=== PATIENT | male | born 1930 | race Caucasian/White ===

== ENCOUNTER 2017-08-05 18:48 | Observation (INO) ==
[2017-08-05 20:02] LABS: Basophils % 0.7 %; Eosinophils # 0.1 K/mcL (0.0-0.6); Eosinophils % 2.6 %; Hematocrit 45.1 % (37.5-50.1); Immature Granulocytes % 0.2 % (0-4); Lymphocytes # 0.5 K/mcL (0.6-4.6); Lymphocytes % 12.8 %; Mean Corpuscular HGB Conc 33.5 g/dL (31.6-35.5); Mean Corpuscular Hemoglobin 32.3 pg (28.0-33.3); Mean Corpuscular Volume 96.6 fL (83.0-100.0); Mean Platelet Volume 9.5 fL (9.4-12.4); Monocytes # 0.5 K/mcL (0.0-1.3); Monocytes % 10.6 %; Neutrophils # 3.1 K/mcL (1.6-8.9); Platelet Count 112 K/mcL (140-400); Red Blood Count 4.67 M/mcL (4.19-5.50); Red Cell Distribution Width 12.6 % (11.5-14.5); Segmented Neutrophils % 73.1 %
[2017-08-05 20:04] LABS: Hemoglobin 15.1 g/dL (12.9-16.9)
[2017-08-05 20:30] LABS: Calcium 9.1 mg/dL (8.6-10.3); Potassium 4.3 mEq/L (3.5-5.1)
[2017-08-05 20:34] LABS: Troponin I 0.09 ng/mL (< 0.04)
[2017-08-05 20:58] LABS: Bilirubin,Urine Negative (Negative); Blood,Urine Trace (Negative); Clarity,Urine Turbid (Clear); Color,Urine Yellow (Yellow); Glucose,Urine (UA) Normal (Normal); Ketones,Urine Negative (Negative); Leukocyte Esterase,Urine Moderate (Negative); Nitrite,Urine Negative (Negative); PH,Urine 7.5 pH Units (5.0-8.0); Protein,Urine 100 mg/dL (Neg-Trace); Specific Gravity,Urine 1.017 (1.010-1.025); Urobilinogen,Urine Normal (Normal)
[2017-08-05 21:00] LABS: Bacteria,Urine Many per hpf (None-Few); Hyaline Casts,Urine None Seen per lpf (None-Few); RBC,Urine 0-3 per hpf (0-3); Squamous Epithelial Cell,Urine Moderate per lpf (None-Few); WBC,Urine TNTC per hpf (0-3)
[2017-08-05 21:13] LABS: Triple Phosphate Crystal,Urine Present
[2017-08-05] MEDS ORDERED: cefTRIAXone 1,000 MG in Water for inj. (sterile) 20 ML 10 ML IVP ONE (21:48)
--- NOTE | 2017-08-05 21:49 | Emergency Department Note ---
Disposition Clinical Impression: Elevated troponin UTI (urinary tract infection) Qualifiers: Urinary tract infection type: acute cystitis Hematuria presence: without hematuria Qualified Code(s): N30.00 - Acute cystitis without hematuria Disposition: Admitted As Inpatient Condition: Fair Referrals: Radha Jones RECOVERER [Primary Care Provider] - Forms: ED Satisfaction Letter Time of Disposition: 22:13 General Adult HPI - General Chief complaint: ED Allergic Reaction Stated complaint: anxious, agitated,paniacs,? side effect new meds Time Seen by Provider: 08/05/17 18:56 Source: patient Limitations: no limitations Nursing Notes Reviewed: Yes Vital Signs Reviewed: Yes - History of Present Illness HPI Narrative: Patient is an 86-year-old male with a past history of pacemaker, diabetes, obesity, stage III chronic kidney disease, hypertension, CHF, and right lower extremity DVT presenting to the emergency department with the presentation of worsening agitation as well as difficulty sleeping at night. Patient lives at home with his . She states that since the patient was discharged one week ago he is been having difficulty with sleeping and she has noticed that he has been acting not himself. The patient himself denies any complaints of fever, chills, headache, chest pain, shortness of breath, abdominal pain, nausea, vomiting or diarrhea. The patient is in the early stages of Alzheimer's he does require additional assistance and they did have home health set up prior to leaving the hospital. According to the prior note the patient was insisting on going home prior to his renal function and improving his insisting that he follow-up with his primary care physician is placed on additional medications which included Eliquis and lisinopril. Pain Scale: 0 - Related Data Home Medications Medication Instructions Recorded Confirmed Atorvastatin [Lipitor] 40 mg PO DAILY 09/07/15 07/27/17 Insulin Glargine,Hum.rec.anlog 42 unit SQ DAILY 09/07/15 07/27/17 [Lantus Solostar] Insulin LISPRO [HumaLOG] 10 units SQ QPM 09/07/15 07/27/17 Metoprolol [Lopressor] 25 mg PO DAILY 09/07/15 07/27/17 Finasteride [Proscar] 5 mg PO DAILY 04/18/17 07/27/17 Gabapentin [Neurontin] 300 mg PO TID 04/18/17 07/27/17 Glimepiride [Amaryl] 4 mg PO DAILY 04/18/17 07/27/17 Losartan Potassium [Cozaar] 100 mg PO DAILY 04/18/17 07/27/17 Sitagliptin Phosphate [Januvia] 50 mg PO Q48H 04/18/17 07/27/17 Cholecalciferol (D-3) [Vitamin D] 2,000 unit PO DAILY 05/09/17 07/27/17 Furosemide [Lasix] 40 mg PO DAILY 07/27/17 07/27/17 Previous Rx's Medication Instructions Recorded Tamsulosin [Flomax] 0.4 mg PO DAILY capsule 08/06/15 Apixaban [Eliquis] 2.5 mg PO BID #60 tablet 07/30/17 Aspirin Enteric Coated [Aspirin EC] 81 mg PO DAILY #30 tablet. 07/30/17 Lisinopril [Zestril] 5 mg PO DAILY #30 tablet 07/30/17 Allergies Allergy/AdvReac Type Severity Reaction Status Date / Time No Known Allergies Allergy Verified 08/05/17 18:50 All systems ED: reviewed and negative except as stated. Review of Systems: As Per HPI Constitutional: Denies: fever, chills ENT ED: Denies: congestion Cardiovascular: Denies: chest pain, palpitations Respiratory: Denies: cough, dyspnea, wheezes Gastrointestinal: Denies: abdominal pain, nausea, vomiting, diarrhea Genitourinary: Denies: urgency, dysuria Musculoskeletal: Denies: back pain, neck pain Integumentary: Denies: rash Neurological: Denies: headache Past Medical History - Past Medical History Attestation: Yes The following information was validated with the patient. Medical history: Reports: diabetes, hypertension, kidney stones, renal disease, other Surgical history: Reports: herniorrhaphy, pacemaker/AICD Psychiatric history: Reports: anxiety - Social History Smoking Status: Never smoker Smokeless Tobacco Status: No Alcohol use: Reports: rarely Drug use: Reports: none Physical Exam - General Limitations: no limitations General appearance: alert, in no apparent distress - Head Head exam: atraumatic, normocephalic, normal inspection - Eye Eye exam: Present: normal appearance, PERRL - ENT ENT exam: normal exam, normal oropharynx - Neck Neck exam: Present: normal inspection, full ROM - Chest Chest inspection: Present: normal inspection, symmetric chest wall rise. Absent : tenderness - Respiratory Respiratory exam: Present: normal lung sounds bilaterally. Absent: respiratory distress, wheezes - Cardiovascular Cardiovascular exam: Present: regular rate, normal rhythm, normal heart sounds, +S1, +S2 - Abdominal Exam Abdominal exam: Present: soft, Non-Tender, normal bowel sounds - Extremities Exam Extremities exam: Present: full ROM. Absent: tenderness, pedal edema (Patient does have chronic venous stasis changes of bilateral lower extremities.) - Back Exam Back exam: Absent: CVA tenderness (R), CVA tenderness (L) - Neurological Exam Neurological exam: Present: alert, oriented X3 - Expanded Neurological Exam Patient oriented to: Present: person, place, time Speech: Present: fluid speech Cranial nerves: EOM function (II, III, IV, ): Normal, facial sensation (V): Normal, facial palsy (VII): Normal, gag reflex (IX): Normal, spinal accessory function (XI): Normal, tongue deviation (XII): Normal Cerebellar function: finger to nose: Normal, heel to spencer: Normal Motor strength - LUE: 5/5 Motor strength - RUE: 5/5 Motor strength - LLE: 5/5 Motor strength - RLE: 5/5 Sensory exam upper extremity: light touch: Normal Sensory exam lower extremity: light touch: Normal Coma Scale Eye Opening: Spontaneous Coma Scale Motor Response: Obeys Commands Coma Scale Verbal Response: Oriented Coma Scale Total: 15 - Psychiatric Psychiatric exam: Present: normal affect, normal mood - Skin Skin exam: Present: warm, dry, intact, normal color Course Course Narrative: Critical patient's family has been expanding increasing altered mental status described as agitation and difficulty sleeping at night. He is not complaining of any specific symptoms of any signs of infection or any focal neurological deficits alerting to a stroke. Plans times perform an altered mental status workup of the patient to rule out any infection will also evaluate his heart and kidney function given his recent admission for systolic heart failure and increased kidney injury. - Reevaluation(s) Reevaluation #1: Patient's lab work returned and show that he has an elevation of his creatinine of 1.53 however this is improved from prior admission one week ago. The patient does have an elevated troponin of 0.09 and this is the highest troponin elevation this patient has on record which is concerning given that his kidney function has actually improved. His BNP is lower than usual. His urinalysis is positive for leukocyte esterase as well as bacteria so he will be treated for a urinary tract infection. He will be admitted to the hospital for continued treatment of his urinary tract infection and also serial troponins. Time: 22:11 Vital Signs Temperature 98.2 F 08/05/17 18:51 Pulse Rate 71 08/05/17 18:51 Respiratory Rate 97 08/05/17 18:51 Blood Pressure 150/75 08/05/17 18:51 O2 Sat by Pulse Oximetry 97 08/05/17 18:51 Temperature 98.2 F 08/05/17 18:51 Pulse Rate 71 08/05/17 18:51 Respiratory Rate 97 08/05/17 18:51 Blood Pressure 150/75 08/05/17 18:51 O2 Sat by Pulse Oximetry 97 08/05/17 18:51 Oxygen Delivery Oxygen Delivery Room Air Medical Decision Making - Medical Records Medical records reviewed: Yes I reviewed the patient's medical records. - Lab Data Lab results reviewed: Yes I reviewed the patient's lab results. Result diagrams: 08/05/17 19:52 08/05/17 19:52 Lab Results 08/05/17 08/05/17 08/05/17 Range/Units 19:52 19:52 19:52 WBC 4.2 L (4.3-11.1) K/mcL RBC 4.67 (4.19-5.50) M/mcL Hgb 15.1 D (12.9-16.9) g/dL Hct 45.1 (37.5-50.1) % MCV 96.6 (83.0-100.0) fL MCH 32.3 (28.0-33.3) pg MCHC 33.5 (31.6-35.5) g/dL RDW 12.6 (11.5-14.5) % Plt Count 112 L (140-400) K/mcL MPV 9.5 (9.4-12.4) fL Immature Gran % 0.2 (0-4) % Seg Neutrophils % 73.1 % Lymphocytes % 12.8 % Monocytes % 10.6 % Eosinophils % 2.6 % Basophils % 0.7 % Neutrophils # 3.1 (1.6-8.9) K/mcL Lymphocytes # 0.5 L (0.6-4.6) K/mcL Monocytes # 0.5 (0.0-1.3) K/mcL Eosinophils # 0.1 (0.0-0.6) K/mcL Basophils # 0.0 (0.0-0.2) K/mcL Sodium 140 (136-145) mEq/L Potassium 4.3 (3.5-5.1) mEq/L Chloride 109 H (98-107) mEq/L Carbon Dioxide 24 (23-29) mEq/L BUN 46 H (8-23) mg/dL Creatinine 1.53 H (0.70-1.30) mg/dL Est GFR ( Amer) 53 L (> 60) Est GFR (Non-Af Amer) 44 L (> 60) BUN/Creatinine Ratio 30 H (6-26) Glucose 196 H (70-105) mg/dL Calculated Osmolality 307 H (280-300) Calcium 9.1 (8.6-10.3) mg/dL Troponin I 0.09 H* (< 0.04) ng/mL B-Natriuretic Peptide 636 H (Less than 100) pg/mL Urine Color (Yellow) Urine Clarity (Clear) Urine pH (5.0-8.0) pH Units Ur Specific [place] (1.010-1.025) Urine Protein (Neg-Trace) mg/dL Urine Glucose (UA) (Normal) mg/dL Urine Ketones (Negative) mg/dL Urine Blood (Negative) Urine Nitrite (Negative) Urine Bilirubin (Negative) Urine Urobilinogen (Normal) mg/dL Ur Leukocyte Esterase (Negative) Urine Microscopic RBC (0-3) per hpf Urine Microscopic WBC (0-3) per hpf Ur Squamous Epith Cells (None-Few) per lpf Triple Phos Crystals Urine Bacteria (None-Few) per hpf Hyaline Casts (None-Few) per lpf Ur Culture Indicated? (NO) 08/05/17 Range/Units 20:45 WBC (4.3-11.1) K/mcL RBC (4.19-5.50) M/mcL Hgb (12.9-16.9) g/dL Hct (37.5-50.1) % MCV (83.0-100.0) fL MCH (28.0-33.3) pg MCHC (31.6-35.5) g/dL RDW (11.5-14.5) % Plt Count (140-400) K/mcL MPV (9.4-12.4) fL Immature Gran % (0-4) % Seg Neutrophils % % Lymphocytes % % Monocytes % % Eosinophils % % Basophils % % Neutrophils # (1.6-8.9) K/mcL Lymphocytes # (0.6-4.6) K/mcL Monocytes # (0.0-1.3) K/mcL Eosinophils # (0.0-0.6) K/mcL Basophils # (0.0-0.2) K/mcL Sodium (136-145) mEq/L Potassium (3.5-5.1) mEq/L Chloride (98-107) mEq/L Carbon Dioxide (23-29) mEq/L BUN (8-23) mg/dL Creatinine (0.70-1.30) mg/dL Est GFR ( Amer) (> 60) Est GFR (Non-Af Amer) (> 60) BUN/Creatinine Ratio (6-26) Glucose (70-105) mg/dL Calculated Osmolality (280-300) Calcium (8.6-10.3) mg/dL Troponin I (< 0.04) ng/mL B-Natriuretic Peptide (Less than 100) pg/mL Urine Color Yellow (Yellow) Urine Clarity Turbid A (Clear) Urine pH 7.5 (5.0-8.0) pH Units Ur Specific [place] 1.017 (1.010-1.025) Urine Protein 100 H (Neg-Trace) mg/dL Urine Glucose (UA) Normal (Normal) mg/dL Urine Ketones Negative (Negative) mg/dL Urine Blood Trace H (Negative) Urine Nitrite Negative (Negative) Urine Bilirubin Negative (Negative) Urine Urobilinogen Normal (Normal) mg/dL Ur Leukocyte Esterase Moderate H (Negative) Urine Microscopic RBC 0-3 (0-3) per hpf Urine Microscopic WBC TNTC H (0-3) per hpf Ur Squamous Epith Cells Moderate H (None-Few) per lpf Triple Phos Crystals Present Urine Bacteria Many H (None-Few) per hpf Hyaline Casts None Seen (None-Few) per lpf Ur Culture Indicated? YES A (NO) - Radiology Data Radiology results reviewed: Yes I reviewed the patient's radiology results. Chest X-Ray 08/05/17 19:17 IMPRESSION: 1. No pulmonary edema. 2. Mild bibasilar atelectasis. D/ / Guanakito Greer MD / Guanakito Greer MD Interpreting Provider: Guanakito Greer MD - EKG Data EKG #1 EKG attestation: Yes I reviewed and interpreted this EKG. EKG results narrative: EKG done at 19:59 shows ventricular pacemaker at a rate of 70 bpm. Normal axis. QRS is 198, QT is 464 and QTc is 484 and these are within normal limits. This EKG is unchanged from the EKG that was done on 07/27/2017. Attestation Statement - Attestation Attestation: Patient was seen with resident physician. I reviewed the history, physical, assessment and plan, and agree with the findings. I also personally evaluated this patient and had [id number] time with this patient. 86-year-old male presents emergency Department chief complaint of difficulty sleeping. Patient had been admitted to the hospital week or so ago for heart failure and extremity blood clot. Comes in tonight because his been unable to sleep really since getting home. He says he gets very fidgety and anxious at nighttime. Denies chest pain shortness of breath fevers chills worsening swelling of the extremities or really any other complaints. Physical exam vital signs are stable. ENT is unremarkable. Heart and lungs normal. Chest wall stable. Abdomen soft nontender. Extremities show no signs of traumatic injury. Neurologically alert and oriented. Psych patient is anxious. ED course. Was unclear what was causing his agitation. A full workup was started just to recheck some of the lab tests enema done on the hospital and look for causes. Found that the patient had a urinary tract infection. Additionally from his troponin was elevated at 0.09, and his kidney function and actually improved from what it was last drawn. We found out that the chicken tender at wanted to perform a cardiac catheterization while the patient was in the hospital but he had declined at that time. It is unclear the patient is continue to have silent cardiac issues, but did not result in pain. Or the patient could have his agitation related to urinary tract infection. Irregardless, he was started on antibiotics and will be admitted to the hospitalist service for further evaluation treatment. I agree with resident physician assessment and plan.
[2017-08-05] MEDS ORDERED: Naloxone 0.4 MG/ML INJ IVP PRN (23:15)
[2017-08-05] MEDS ORDERED: Acetaminophen 325 MG TABLET PO PRN (23:15)
[2017-08-05] MEDS ORDERED: D5% in Water 1,000 ML IVC PRN (23:22)
[2017-08-05] MEDS ORDERED: *HR* Dextrose 50 % in Water (Syg) 50 ML SYRINGE IVP PRN (23:22)
[2017-08-05] MEDS ORDERED: Dextrose Gel 15 GM/37.5 ML TUBE PO PRN ×2 (23:22)
--- NOTE | 2017-08-05 23:34 | Internal Med History&Physical ---
<Cesar Bonds R - Last Filed: 08/05/17 23:24> Date of Encounter: 08/05/17 Time of Encounter: 22:45 Internal Medicine - H&P: HPI Chief complaint: Agitation Admitted From: Emergency Dept History of present illness: Mr. Vázquez is a 86 year old male with PMH of CHF, pacemaker, HTN, DM, CKD stage 3, Alzheimer's, and right LE DVT, presented to the emergency department with concerns of agitation, anxiety, difficulty sleeping, and concern that some new medications are causing the symptoms. He was recently discharged from the hospital about a week ago due to CHF exacerbation, found right lower extremity DVT and started on Eliquis. He was also started on lisinopril at that time. Family reports concerned that maybe these new medications are causing his symptoms, however he reports that his anxiety and difficulty sleeping began prior to his last admission. He states that he had increasing anxiety when he began having more difficulty breathing with his prior CHF exacerbation. He states that at night he cannot fall asleep, and he will get up and take drives to help calm his nerves. He does report taking a partial dose of a family member's Xanax, and this provided him a few hours of sleep. Family reports that he is usually a "laid-back teo". He does report some mild generalized muscle aches that began last admission. Denies other complaints. History of Alzheimer's, but he denies confusion or worsening memory loss. Denies fevers, chills, syncope, falls, headaches, change in vision, chest pain, dyspnea, cough , abdominal pain, nausea, vomiting, change in bowels, hematochezia, melena, dysuria, hematuria, or leg pain. He does have bilateral lower extremity edema, but he reports that this is much improved. During workup for agitation in the emergency department he was found to have elevated troponin and possible UTI, so he is admitted for further workup of these. Past Med Surg Social Fam HX - Past Medical History Medical history: diabetes, hypertension, kidney stones, renal disease, other Psychiatric history: anxiety - Past Surgical History Surgical History: herniorrhaphy, pacemaker/AICD - Social History Smoking Status: Never smoker Smokeless Tobacco Status: No Alcohol use: rarely Drug use: none - Family History Father Hx Family Cardiac Disorders: Yes Hx Family Respiratory Disorders: No Hx Family Cancer: No Hx Family GI Disorders: No Hx Family Endocrine Disorder: No Hx Family Neuromuscular Disorders: No Hx Family Neurologic Disorders: No Hx Family HEENT Disorders: No Hx Family Autoimmune Disorders: No Mother Family Member Ethnicity: Non- Living Status: Hx Family Cardiac Disorders: No Hx Family Respiratory Disorders: No Hx Family Cancer: No Hx Family GI Disorders: No Hx Family Endocrine Disorder: No Hx Family Neuromuscular Disorders: No Hx Family Neurologic Disorders: No Hx Family HEENT Disorders: No Hx Family Autoimmune Disorders: No Internal Medicine - H&P: Meds Tamsulosin [Flomax] 0.4 mg PO DAILY capsule 08/06/15 [Rx] Atorvastatin [Lipitor] 40 mg PO DAILY 09/07/15 [History] Insulin Glargine,Hum.rec.anlog [Lantus Solostar] 42 unit SQ DAILY 09/07/15 [ History] Insulin LISPRO [HumaLOG] 10 units SQ QPM 09/07/15 [History] Metoprolol [Lopressor] 25 mg PO DAILY 09/07/15 [History] Finasteride [Proscar] 5 mg PO DAILY 04/18/17 [History] Gabapentin [Neurontin] 300 mg PO TID 04/18/17 [History] Glimepiride [Amaryl] 4 mg PO DAILY 04/18/17 [History] Losartan Potassium [Cozaar] 100 mg PO DAILY 04/18/17 [History] Sitagliptin Phosphate [Januvia] 50 mg PO Q48H 04/18/17 [History] Cholecalciferol (D-3) [Vitamin D] 2,000 unit PO DAILY 05/09/17 [History] Furosemide [Lasix] 40 mg PO DAILY 07/27/17 [History] Apixaban [Eliquis] 2.5 mg PO BID #60 tablet 07/30/17 [Rx] Aspirin Enteric Coated [Aspirin EC] 81 mg PO DAILY #30 tablet. 07/30/17 [Rx] Lisinopril [Zestril] 5 mg PO DAILY #30 tablet 07/30/17 [Rx] 3 Allergy/AdvReac Type Severity Reaction Status Date / Time No Known Allergies Allergy Verified 08/05/17 18:50 All Systems PM: A 10-system review of systems was performed and is negative for pertinent findings except as documented above in the HPI. - Constitutional Vitals: Temp Pulse Resp BP Pulse Ox 98.2 F 71 16 160/88 97 08/05/17 18:51 08/05/17 18:51 08/05/17 23:13 08/05/17 23:13 08/05/17 18:51 General appearance: Present: A&O X 3, no acute distress, answers questions appropriately - Head Head exam: Present: atraumatic, normocephalic - Eye Eye exam: Present: EOMI, PERRL, conjuntiva pink, sclera anicteric - Neck Neck exam general surgery: Present: supple, trachea midline. Absent: lymphadenopathy - Respiratory Respiratory exam: Present: CTAB. Absent: accessory muscle use, rales, rhonchi, wheezes - Cardiovascular Cardiovascular exam: Present: RRR, +S1, +S2. Absent: diastolic murmur, systolic murmur - GI/Abdominal GI/Abdominal exam: Present: normal bowel sounds, soft, no peritoneal signs. Absent: distended, tenderness - Extremities Exam Extremities exam: Present: pedal edema (Bilaterally), warm, radial pulses palpable and symmetrical. Absent: calf tenderness, cyanotic, tenderness - Back Exam Back exam: Absent: CVA tenderness (L), CVA tenderness (R) - Neurological Exam Neurological exam: Present: CN II-XII intact, oriented X3, no focal deficits. Absent: facial droop, speech deficit - Skin Skin exam: Present: dry, intact Internal Med - H&P Results - Labs CBC & Chem 7: 08/05/17 19:52 08/05/17 19:52 - Assessment and plan (1) Elevated troponin Current Visit: Yes Status: Acute Assessment and plan: Troponin 0.09. This is slightly more elevated than his prior admission (0.06, 0.07). EKG shows paced rhythm, HR 70, normal axis and intervals, no ST changes. The patient denies any chest pain or dyspnea. He states that he still does not want a [facility] as an in-patient, and would want this conducted as an outpatient. Will not consult cardiology. Trend troponins. Continue ASA, BB, and statin. (2) UTI (urinary tract infection) Current Visit: Yes Status: Acute Assessment and plan: Urinalysis shows leuk esterase, white blood cells, and bacteria. However the patient is not having any urinary symptoms or confusion. We will continue Rocephin. Qualifiers: Urinary tract infection type: acute cystitis Hematuria presence: without hematuria Qualified Code(s): N30.00 - Acute cystitis without hematuria (3) Anxiety Current Visit: Yes Status: Acute Assessment and plan: Primary complaint today is agitation that sounds much more like anxiety and insomnia. He states the symptoms seemed to begin with in he had become short of breath with his prior exacerbation of CHF, but they did not resolve after his physical symptoms improved. They are concerned that the symptoms could have been related to new medications of Eliquis and lisinopril, however he states the symptoms began before We will provide melatonin and Ativan PRN for now, but the patient will likely benefit from more long-term therapy initiation prior to discharge. (4) Diabetes mellitus Current Visit: Yes Status: Chronic Assessment and plan: Will place on 36 units basal insulin and sliding scale insulin. Last A1c 7.4 in March 2017. We will recheck an A1c. Qualifiers: Diabetes mellitus type: type 2 Diabetes mellitus complication status: with neurologic complications Diabetes mellitus complication detail: with polyneuropathy Qualified Code(s): E11.42 - Type 2 diabetes mellitus with diabetic polyneuropathy; Z79.4 - skilled nursing (current) use of insulin; Z79.4 - terminal clerk (current) use of insulin; Z79.4 - terminal clerk (current) use of insulin; Z79.4 - skilled nursing (current) use of insulin (5) Systolic heart failure Current Visit: Yes Status: Chronic Assessment and plan: Chronic. Not in acute decompensation. No dyspnea. Patient does have bilateral lower extremity, however he reports that this is much improved than previously. Echo 07/28/17: LVEF 45%, mild left ventricular hypertrophy, mild global systolic dysfunction. BNP 636, this is decreased compared to previous. Chest x-ray shows no edema or consolidation. Continue home Lasix, daily weights, I and O's. Qualifiers: Heart failure chronicity: chronic Qualified Code(s): I50.22 - Chronic systolic (congestive) heart failure (6) Hypertension Current Visit: Yes Status: Acute Assessment and plan: 150-160/75-88. Reports not having all his home medications. Continue home meds and monitor. 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 Continue Eliquis Qualifiers: Affected thrombotic vein of extremity: femoral Chronicity: chronic Qualified Code(s): I82.511 - Chronic embolism and thrombosis of right femoral vein (8) DVT prophylaxis Current Visit: Yes Status: Acute Assessment and plan: On Eliquis - Time Spent With Patient Total time spent is greater than 50% in coordination of care (as documented) at patient's floor/unit and/or counseling patient: <Antionette Grimes - Last Filed: 08/06/17 01:21> Date of Encounter: 08/05/17 Internal Medicine - H&P: HPI History of present illness: Mr. Vázquez is a 86 year old male All Systems PM: A 10-system review of systems was performed and is negative for pertinent findings except as documented above in the HPI. - Constitutional Vitals: Temp Pulse Resp BP Pulse Ox 97.7 F 70 15 160/79 97 08/05/17 23:31 08/05/17 23:31 08/05/17 23:31 08/05/17 23:31 08/05/17 23:31 Internal Med - H&P Results - Labs CBC & Chem 7: 08/05/17 19:52 08/05/17 19:52 - Attending Attestation I examined this patient and my medical decision-making was reviewed with the Resident Physician Dr. Bonds. I agree with the documented findings, disposition and treatment plan as described except to the extent set forth below. Mr. Vázquez is a 86 year old male with PMH of Systolic CHF, pacemaker, HTN, DM, CKD stage 3, Alzheimer's, and right LE DVT recently diagnosed and started him on eliquis now he presented to the emergency department with concerns of agitation, anxiety, difficulty sleeping, and concern that some new medications are causing the symptoms. He denied any CP / SOB. Gen: A,A, O x 3 Chest: Diminished BS b/l basal regions No crackles Heart: S1S2+ RRR No murmurs a/p 1. Acute UTI on Rocephin f/u on urine cx 2. Slihgtly elevated troponin - due to demand ischemia 3. Chronic Systolic CHF - not in exacerbation trend on trop Pt was asked to f.u with Card as an out pt for possible out pt LHC during last hospitlization he does not want to have LHC done during this hospitalization too will trend on trop for now 4. Insomnia.. Anxiety started on Melatonin also placed him on Ativan PRN - Time Spent With Patient Total time spent is greater than 50% in coordination of care (as documented) at patient's floor/unit and/or counseling patient:
[2017-08-06] MEDS: Insulin DETEMIR 100 UNIT/ML X5UNITS SQ SCH ×2 (00:13→20:27)
[2017-08-06] MEDS: Melatonin 3 MG TABLET PO SCH ×2 (00:13→23:13)
[2017-08-06] MEDS: Apixaban 2.5 MG TABLET PO SCH ×3 (00:13→20:27)
[2017-08-06 03:10] LABS: Basophils % 0.6 %; Eosinophils # 0.2 K/mcL (0.0-0.6); Eosinophils % 3.4 %; Hematocrit 41.9 % (37.5-50.1); Hemoglobin 14.1 g/dL (12.9-16.9); Immature Granulocytes % 0.2 % (0-4); Lymphocytes # 0.7 K/mcL (0.6-4.6); Lymphocytes % 14.3 %; Mean Corpuscular HGB Conc 33.7 g/dL (31.6-35.5); Mean Corpuscular Hemoglobin 32.3 pg (28.0-33.3); Mean Corpuscular Volume 95.9 fL (83.0-100.0); Mean Platelet Volume 9.5 fL (9.4-12.4); Monocytes # 0.4 K/mcL (0.0-1.3); Monocytes % 9.1 %; Neutrophils # 3.4 K/mcL (1.6-8.9); Platelet Count 101 K/mcL (140-400); Red Blood Count 4.37 M/mcL (4.19-5.50); Red Cell Distribution Width 12.6 % (11.5-14.5); Segmented Neutrophils % 72.4 %
[2017-08-06 03:36] LABS: Calcium 9.1 mg/dL (8.6-10.3); Magnesium 2.2 mg/dL (1.6-2.6); Phosphorous 3.3 mg/dL (2.7-4.5)
[2017-08-06 08:03] LABS: Estimated Average Glucose 163 mg/dl; Hemoglobin A1C 7.3 %
[2017-08-06] MEDS: Insulin LISPRO 300 UNITS/3 ML VIAL SQ SCH ×3 (09:02→16:03)
[2017-08-06] MEDS: Furosemide 40 MG TABLET PO SCH (09:04)
[2017-08-06] MEDS: Aspirin Enteric Coated 81 MG Tablet PO SCH (09:04)
[2017-08-06] MEDS: cefTRIAXone 1,000 MG in Water for inj. (sterile) 20 ML 10 ML IVP SCH (09:04)
--- NOTE | 2017-08-06 10:00 | Internal Med Progress Note ---
Date of Encounter: 08/06/17 Time of Encounter: 09:42 - Time Spent With Patient Total time spent is greater than 50% in coordination of care (as documented) at patient's floor/unit and/or counseling patient: - Subjective Interval history: Pt seen and examined at bedside. Reports of being very tired and has not slept in days. 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 Denies any shortness of breath or chest pain. Noted to have increase in troponin but denies any chest pain. He continues to refuse LHC at this time and states he will follow up with cardiology as outpatient and get that done then. - Assessment and plan (1) Elevated troponin Current Visit: Yes Status: Acute Assessment and plan: Elevated TNI Denies any chest pain Pt was recently evaluated by cardiology about a week ago and did not want any LHC at this time He continues to refuse any cardiac intervention at this time, states he will schedule his LHC as outpatient continue home dose of ASA, statin, BB (2) UTI (urinary tract infection) Current Visit: Yes Status: Acute Assessment and plan: f/u urine culture continue IV ceftriaxone at this time Qualifiers: Urinary tract infection type: acute cystitis Hematuria presence: without hematuria Qualified Code(s): N30.00 - Acute cystitis without hematuria (3) Anxiety Current Visit: Yes Status: Acute Assessment and plan: Remains anxious, willing to try ativan Ativan prn anxiety Melatonin at bedtime (4) Diabetes mellitus Current Visit: Yes Status: Chronic Assessment and plan: Sliding scale insulin algorithm monitor FS and BG ADA diet f/u HbA1C Qualifiers: Diabetes mellitus type: type 2 Diabetes mellitus complication status: with neurologic complications Diabetes mellitus complication detail: with polyneuropathy Qualified Code(s): E11.42 - Type 2 diabetes mellitus with diabetic polyneuropathy; Z79.4 - double needle operator lockstitch (current) use of insulin; Z79.4 - double needle operator lockstitch (current) use of insulin; Z79.4 - double needle operator lockstitch (current) use of insulin; Z79.4 - group home (current) use of insulin (5) Systolic heart failure Current Visit: Yes Status: Chronic Assessment and plan: Chronic. Not in acute decompensation. No dyspnea. Patient does have bilateral lower extremity, however he reports that this is much improved than previously. Echo 07/28/17: LVEF 45%, mild left ventricular hypertrophy, mild global systolic dysfunction. BNP 636, this is decreased compared to previous. Chest x-ray shows no edema or consolidation. Continue home Lasix, daily weights, I and O's. 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 Continue Eliquis Qualifiers: Affected thrombotic vein of extremity: femoral Chronicity: chronic Qualified Code(s): I82.511 - Chronic embolism and thrombosis of right femoral vein (8) DVT prophylaxis Current Visit: Yes Status: Acute Assessment and plan: On Eliquis - Constitutional Vitals: Temp Pulse Resp BP Pulse Ox 98.0 F 68 16 145/65 96 08/06/17 07:02 08/06/17 07:02 08/06/17 07:02 08/06/17 07:02 08/06/17 07:02 General appearance: Present: A&O X 3, no acute distress, obese, answers questions appropriately - Head Head exam: Present: atraumatic, normocephalic - Eye Eye exam: Present: conjuntiva pink, sclera anicteric - Respiratory Respiratory exam: Absent: rales (equal air entry bilaterally ), respiratory distress, wheezes - Cardiovascular Cardiovascular exam: Present: RRR, +S1, +S2. Absent: diastolic murmur, gallop, rubs, systolic murmur - GI/Abdominal GI/Abdominal exam: Present: normal bowel sounds, soft. Absent: tenderness - Extremities Exam Extremities exam: Present: pedal edema, warm, radial pulses palpable and symmetrical. Absent: calf tenderness - Neurological Exam Neurological exam: Present: oriented X3 Internal Medicine: Result - Labs CBC & Chem 7: 08/06/17 03:00 08/06/17 03:00 Labs: Short CBC 08/06/17 Range/Units 03:00 WBC 4.8 (4.3-11.1) K/mcL Hgb 14.1 (12.9-16.9) g/dL Hct 41.9 (37.5-50.1) % Plt Count 101 L (140-400) K/mcL Neutrophils # 3.4 (1.6-8.9) K/mcL BMP 08/06/17 03:00 Sodium 139 Potassium 4.0 Chloride 107 Carbon Dioxide 27 BUN 44 H Creatinine 1.54 H Glucose 213 H Calcium 9.1 Cardiac Enzymes 08/06/17 08/06/17 Range/Units 03:00 08:38 Troponin I 0.08 H* 0.10 H* (< 0.04) ng/mL Consult Discharge Plan - Plan Referrals: Radha Jones, CEMENT BLOCK MAKER [Primary Care Provider] -
[2017-08-06] MEDS ORDERED: Dextrose Gel 15 GM/37.5 ML TUBE PO PRN ×2 (10:02)
[2017-08-06] MEDS ORDERED: D5% in Water 1,000 ML IVC PRN (10:02)
[2017-08-06] MEDS ORDERED: *HR* Dextrose 50 % in Water (Syg) 50 ML SYRINGE IVP PRN (10:02)
[2017-08-06] MEDS: *HR* LORazepam 0.5 MG TABLET PO PRN ×2 (10:31→23:13)
[2017-08-06] MEDS ORDERED: Insulin LISPRO 300 UNITS/3 ML VIAL SQ SCH (21:00)
[2017-08-07 05:36] LABS: Basophils % 0.4 %; Eosinophils # 0.1 K/mcL (0.0-0.6); Hemoglobin 15.5 g/dL (12.9-16.9); Immature Granulocytes % 0.2 % (0-4); Lymphocytes # 0.8 K/mcL (0.6-4.6); Lymphocytes % 14.1 %; Mean Corpuscular HGB Conc 33.7 g/dL (31.6-35.5); Mean Corpuscular Hemoglobin 32.6 pg (28.0-33.3); Mean Corpuscular Volume 96.6 fL (83.0-100.0); Mean Platelet Volume 9.7 fL (9.4-12.4); Monocytes # 0.6 K/mcL (0.0-1.3); Monocytes % 10.5 %; Platelet Count 128 K/mcL (140-400); Red Blood Count 4.76 M/mcL (4.19-5.50); Red Cell Distribution Width 12.5 % (11.5-14.5); Segmented Neutrophils % 72.8 %
[2017-08-07 05:55] LABS: Calcium 9.4 mg/dL (8.6-10.3); Phosphorous 3.5 mg/dL (2.7-4.5)
[2017-08-07] MEDS: Furosemide 40 MG TABLET PO SCH (08:11)
[2017-08-07] MEDS: Insulin LISPRO 300 UNITS/3 ML VIAL SQ SCH ×2 (08:11→12:01)
[2017-08-07] MEDS: Apixaban 2.5 MG TABLET PO SCH (08:11)
[2017-08-07] MEDS: Aspirin Enteric Coated 81 MG Tablet PO SCH (08:11)
[2017-08-07] MEDS: cefTRIAXone 1,000 MG in Water for inj. (sterile) 20 ML 10 ML IVP SCH (08:12)
--- NOTE | 2017-08-07 10:36 | Discharge Summary ---
- NOTES TO OUTPATIENT PROVIDER Notes to Outpatient Provider: Patient reported of severe anxiety and responded well to low dose of Ativan PO. Please evaluate the patient and re-assess the need for continuation of therapy. Date of Encounter: 08/07/17 Time of Encounter: 09:30 - Discharge Diagnosis (1) CKD (chronic kidney disease) Priority: Secondary Status: Chronic Qualifiers: Chronic kidney disease stage: unspecified stage Qualified Code(s): N18.9 - Chronic kidney disease, unspecified (2) Anxiety Priority: Primary Status: Acute (3) DVT prophylaxis Priority: Secondary Status: Acute (4) Elevated troponin Priority: Secondary Status: Acute Comments: pt refused any cardiac intervention and wishes to follow up with them as outpatient (5) Hypertension Priority: Secondary Status: Chronic Qualifiers: Hypertension type: essential hypertension Qualified Code(s): I10 - Essential (primary) hypertension (6) UTI (urinary tract infection) Priority: Primary Status: Acute Qualifiers: Urinary tract infection type: acute cystitis Hematuria presence: without hematuria Qualified Code(s): N30.00 - Acute cystitis without hematuria (7) Deep vein thrombosis (DVT) of right lower extremity Priority: Secondary Status: Chronic Qualifiers: Affected thrombotic vein of extremity: femoral Chronicity: chronic Qualified Code(s): I82.511 - Chronic embolism and thrombosis of right femoral vein (8) Diabetes mellitus Priority: Secondary Status: Chronic Qualifiers: Diabetes mellitus type: type 2 Diabetes mellitus complication status: with neurologic complications Diabetes mellitus complication detail: with polyneuropathy Qualified Code(s): E11.42 - Type 2 diabetes mellitus with diabetic polyneuropathy; Z79.4 - termite treater (current) use of insulin; Z79.4 - termite treater (current) use of insulin; Z79.4 - [facility] (current) use of insulin; Z79.4 - [facility] (current) use of insulin (9) Obesity (BMI 30.0-34.9) Priority: Secondary Status: Chronic Hospital course: Mr. Vázquez is a 86 year old male with PMH of CHF, pacemaker, HTN, DM, CKD stage 3, Alzheimer's, and right LE DVT recently started on anticoagulation who was admitted for UTI and severe anxiety. He was started on IV abx and low dose ativan to which he responded appropriately. At this time he is back to his baseline and medically stable for discharge to home. Pt to follow up with cardio , PCP after discharge. Discharge discussed with: patient, nurse - Time Spent with Patient Total time spent providing and/or coordinating discharge services: Less than 30 minutes - Discharge Medications Prescriptions: levoFLOXacin [Levaquin] 250 mg PO DAILY #4 tablet LORazepam [Ativan] 0.5 mg PO BID PRN 4 Days #8 tablet PRN Reason: severe anxiety Home Medications: Tamsulosin [Flomax] 0.4 mg PO DAILY capsule 08/06/15 [Rx] Atorvastatin [Lipitor] 40 mg PO DAILY 09/07/15 [History] Insulin Glargine,Hum.rec.anlog [Lantus Solostar] 42 unit SQ DAILY 09/07/15 [ History] Insulin LISPRO [HumaLOG] 10 units SQ QPM 09/07/15 [History] Metoprolol [Lopressor] 12.5 mg PO BID 09/07/15 [History] Gabapentin [Neurontin] 300 mg PO TID 04/18/17 [History] Glimepiride [Amaryl] 4 mg PO DAILY 04/18/17 [History] Losartan Potassium [Cozaar] 100 mg PO DAILY 04/18/17 [History] Sitagliptin Phosphate [Januvia] 50 mg PO Q48H 04/18/17 [History] Cholecalciferol (D-3) [Vitamin D] 2,000 unit PO DAILY 05/09/17 [History] Furosemide [Lasix] 40 mg PO DAILY 07/27/17 [History] Apixaban [Eliquis] 2.5 mg PO BID #60 tablet 07/30/17 [Rx] Aspirin Enteric Coated [Aspirin EC] 81 mg PO DAILY #30 tablet. 07/30/17 [Rx] Lisinopril [Zestril] 5 mg PO DAILY #30 tablet 07/30/17 [Rx] LORazepam [Ativan] 0.5 mg PO BID PRN 4 Days #8 tablet 08/07/17 [Rx] levoFLOXacin [Levaquin] 250 mg PO DAILY #4 tablet 08/07/17 [Rx] Allergies/Adverse Reactions: 3 Allergy/AdvReac Type Severity Reaction Status Date / Time No Known Allergies Allergy Verified 08/05/17 18:50 Date of admission: 08/05/17 22:43 Primary care physician: Radha Jones CNP Discharging clinician: Elvia Alvarez Anticipated date of discharge: 08/07/17 - Constitutional Vitals: Temp Pulse Resp BP Pulse Ox 98.0 F 71 20 134/82 94 08/07/17 09:52 08/07/17 09:52 08/07/17 09:52 08/07/17 09:52 08/07/17 09:52 General appearance: Present: A&O X 3, no acute distress, obese, answers questions appropriately - Head Head exam: Present: atraumatic, normocephalic - Eye Eye exam: Present: conjuntiva pink, sclera anicteric - Respiratory Respiratory exam: Present: CTAB. Absent: respiratory distress, wheezes - Cardiovascular Cardiovascular exam: Present: RRR, +S1, +S2. Absent: diastolic murmur, gallop, rubs, systolic murmur - GI/Abdominal GI/Abdominal exam: Present: normal bowel sounds, soft, no peritoneal signs. Absent: distended, tenderness - Extremities Exam Extremities exam: Present: pedal edema, warm, radial pulses palpable and symmetrical. Absent: calf tenderness, tenderness - Neurological Exam Neurological exam: Present: oriented X3 - Patient Status Disposition: Home, Self-Care Condition: Good Functional capacity at discharge: independent ambulation Overall status at discharge: patient is back to baseline - Discharge Instructions Follow Up With: Radha Jones CNP [Primary Care Provider] - Additional Instructions: Please follow up with your primary care physician within five days after your discharge from the hospital. Please speak to your primary care physician about your anxiety and continuation of the anxiety medications. Please do not drive after taking ativan. continue oral antibiotics as prescribed. Resume all other home medications as prescribed by your primary care physician. - Diet and Activity Diet: diabetic diet, low fat, low cholesterol, low salt diet
[2017-08-07 10:39] VITALS: BP 134/82
--- NOTE | 2017-08-09 00:28 | Electrocardiograph Report ---
[place] [id number] Test Date: 2017-08-05 Pat Name: Mathew Vázquez Department: 102 Room: 3A42 Gender: M Can Sterilizer: Shira : [id number] Requested By: Tomy Samuels Order Number: [id number] Reading MD: Jennifer Che Measurements Intervals [place] Rate: 70 P: NV: 0 QRS: -70 QRSD: 198 T: 110 QT: 464 QTc: 484 Interpretive Statements ELECTRONIC VENTRICULAR PACEMAKER ABNORMAL RHYTHM ECG Electronically Signed On 08-09-2017 0:26:12 EDT by Jennifer Che
== END 2017-08-07 13:45 | disposition home or self-care (01) ==
LOC: EMEROO 18:48 → 3ANU 18:48
PROVIDERS: ADMIT Family Medicine; ATTEND Internal Medicine

== ENCOUNTER 2017-08-31 22:16 | Inpatient (IN) ==
--- NOTE | 2017-08-31 22:55 | Emergency Department Note ---
Disposition Clinical Impression: Emphysematous cystitis Disposition: Admitted As Inpatient Condition: Undetermined General Adult HPI - General Chief complaint: ED Extremity Problem,Nontraumatic Stated complaint: R Leg Weakness Time Seen by Provider: 08/31/17 22:33 Source: EMS Mode of arrival: EMS Limitations: physical limitation Nursing Notes Reviewed: Yes Vital Signs Reviewed: Yes - History of Present Illness HPI Narrative: 86-year-old male presents via EMS for evaluation of right lower extremity weakness. Apparently patient was unable to get himself off the bedside commode due to weakness in his right lower exterminate. Patient typically ambulates with a walker, and has a bedside commode and his room. He does not normally have any issues. He does state that he has chronic right knee pain and has been flaring up here recently and that the pain is in he thinks might have made him feel weak . He also states that he has been feeling "ill" the last 10 days or so. He states he has been having some nausea which was preventing him from eating or drinking, but he was placed on a "medication that started with a O" for the last 3 days and this has been getting better. He states the nausea tingling was in the middle of the stomach. He denies constipation, diarrhea, vomiting. Patient does have a history of CHF, hypertension, diabetes, pacemaker, chronic kidney disease stage III, Alzheimer's/dementia, and bilateral extremity DVTs. He is currently on Eliquis twice a day and states he is compliant with his medications, Chronic bilateral lower extremity swelling--states there has been no increase Patient denies fever, chills, confusion, dizziness/lightheadedness, difficulty breathing, shortness of breath, coughing, and genitourinary complaints. Onset (ago): Just LINING SEWER Pain Scale: 0 Associated symptoms: Reports: loss of appetite, nausea/vomiting - Related Data Home Medications Medication Instructions Recorded Confirmed Atorvastatin [Lipitor] 40 mg PO DAILY 09/07/15 09/01/17 Insulin Glargine,Hum.rec.anlog 42 unit SQ DAILY 09/07/15 09/01/17 [Lantus Solostar] Insulin LISPRO [HumaLOG] 10 units SQ QPM 09/07/15 09/01/17 Metoprolol [Lopressor] 12.5 mg PO BID 09/07/15 09/01/17 Gabapentin [Neurontin] 300 mg PO BID 12/19/17 05/04/18 Glimepiride [Amaryl] 4 mg PO DAILY 04/18/17 09/01/17 Losartan Potassium [Cozaar] 100 mg PO DAILY 04/18/17 09/01/17 Sitagliptin Phosphate [Januvia] 50 mg PO Q48H 04/18/17 09/01/17 Cholecalciferol (D-3) [Vitamin D] 2,000 unit PO DAILY 05/09/17 09/01/17 Furosemide [Lasix] 40 mg PO DAILY 07/27/17 09/01/17 Previous Rx's Medication Instructions Recorded Tamsulosin [Flomax] 0.4 mg PO DAILY capsule 08/06/15 Apixaban [Eliquis] 2.5 mg PO BID #60 tablet 07/30/17 Aspirin Enteric Coated [Aspirin EC] 81 mg PO DAILY #30 tablet. 07/30/17 LORazepam [Ativan] 0.5 mg PO BID PRN 4 Days #8 tablet 08/07/17 Allergies Allergy/AdvReac Type Severity Reaction Status Date / Time No Known Allergies Allergy Verified 08/05/17 18:50 All systems ED: reviewed and negative except as stated. Review of Systems: As Per HPI Past Medical History - Past Medical History Attestation: Yes The following information was validated with the patient. Source: patient, old records reviewed Medical history: Reports: DVT, diabetes, hypertension, kidney stones, renal disease, other Surgical history: Reports: herniorrhaphy, pacemaker/AICD Psychiatric history: Reports: anxiety - Social History Smoking Status: Never smoker Smokeless Tobacco Status: No Alcohol use: Reports: rarely Drug use: Reports: none Physical Exam - General Limitations: no limitations, physical limitation General appearance: alert, in no apparent distress - Head Head exam: atraumatic, normocephalic, normal inspection - Eye Eye exam: Present: normal appearance, PERRL, EOMI. Absent: scleral icterus, nystagmus - ENT ENT exam: normal exam, normal oropharynx, mucous membranes moist - Neck Neck exam: Present: normal inspection, full ROM, trachea midline - Chest Chest inspection: Present: normal inspection, symmetric chest wall rise - Respiratory Respiratory exam: Present: normal lung sounds bilaterally - Cardiovascular Cardiovascular exam: Present: regular rate, normal rhythm, normal heart sounds - Abdominal Exam Abdominal exam: Present: soft, Non-Tender. Absent: tenderness, distention, guarding, rebound, rigidity - Expanded Lower Extremity Exam Upper leg exam: Present: normal inspection, full ROM Knee exam: Present: normal inspection, full ROM, tenderness Lower leg exam: Present: full ROM (Limited due to edema), swelling. Absent: normal inspection, abrasion, laceration, ecchymosis, deformity, crepitus, dislocation, erythema Ankle exam: Present: full ROM (Limited due to edema), swelling, abrasion, ecchymosis, deformity, dislocation, erythema. Absent: normal inspection, laceration Foot/toe exam: Present: full ROM (Limited due to edema), swelling. Absent: normal inspection, abrasion, laceration, ecchymosis, deformity, crepitus, dislocation, erythema, amputation, puncture wound, foreign body, calcaneal tenderness Neurovascular/Tendon exam: Present: normal capillary refill. Absent: pulse deficit, motor deficit, sensory deficit Gait: not tested/not observed - Back Exam Back exam: Present: normal inspection, full ROM. Absent: tenderness - Neurological Exam Neurological exam: Present: alert, oriented X3 - Psychiatric Psychiatric exam: Present: normal affect, normal mood - Skin Skin exam: Present: warm, dry, intact, normal color Course Course Narrative: Well-hydrated, well-developed, abdominal leak obese male in no acute distress. Respirations are easy and even. Patient is alert and oriented 3, follows commands easily, follows conversation easily. Full neurological assessment within normal limits, with the exception of bilateral lower extremities as patient is not able to hold them up off the bed at all, he states this is because of the edema and part with generalized weakness. Patient also noted with poor muscle weakness, he is unable to pull himself up in bed or to a sitting position. Lungs clear to auscultate; heart rate regular rhythm, EKG with vent paced rate 70; bowel sounds 4, no organomegaly, abdomen protuberant; bilateral lower extremities from the to toes with extreme edema, skin appears dry but is not broken. Per patient no change in the edema it is not any better or worse. Right knee pain with palpation anterior laterally, no deformity, crepitus, ecchymosis, edema. We will obtain basic labs, x-ray knee, as well as chest x-ray is patient's been having abdominal pain and get an EKG, and reevaluate. - Reevaluation(s) Reevaluation #1: Labs reveal acute kidney injury, chronically elevated troponin is 0.09 which is a patient baseline. CT the abdomen and pelvis shows erythematous cystitis, enlarged prostate with possible tumor. Spoke with urology who states hospitalist can choose IV antibiotics, they will consult see patient in the morning. Patient is resting quietly, no change from previous assessment. Family member has left. Patient will be admitted to hospitalist services. Time: 00:55 Reevaluation #2: Spoke with hospitalist, tyron agrees take patient to inpatient medical. We will initiate transition from ED to inpatient unit at this time. Patient continues to be agreeable plan. No acute change and assessment. Time: 01:05 Vital Signs Temperature 98.3 F 08/31/17 22:22 Pulse Rate 71 08/31/17 22:22 Respiratory Rate 18 08/31/17 22:22 Blood Pressure 129/62 08/31/17 22:22 O2 Sat by Pulse Oximetry 96 08/31/17 22:22 Temperature 100.3 F H 09/01/17 03:45 Pulse Rate 70 09/01/17 03:45 Respiratory Rate 14 09/01/17 03:45 Blood Pressure 107/61 09/01/17 03:45 O2 Sat by Pulse Oximetry 93 09/01/17 03:45 Oxygen Delivery Oxygen Delivery Room Air Medical Decision Making - Lab Data Result diagrams: 08/31/17 22:55 08/31/17 22:55 Lab Results 08/31/17 08/31/17 09/01/17 Range/Units 22:55 22:55 00:25 WBC 10.9 (4.3-11.1) K/mcL RBC 4.33 (4.19-5.50) M/mcL Hgb 13.8 (12.9-16.9) g/dL Hct 42.0 (37.5-50.1) % MCV 97.0 (83.0-100.0) fL MCH 31.9 (28.0-33.3) pg MCHC 32.9 (31.6-35.5) g/dL RDW 13.2 (11.5-14.5) % Plt Count 154 (140-400) K/mcL MPV 9.5 (9.4-12.4) fL Immature Gran % 0.7 (0-4) % Seg Neutrophils % 89.3 % Lymphocytes % 2.7 % Monocytes % 7.0 % Eosinophils % 0.1 % Basophils % 0.2 % Neutrophils # 9.7 H (1.6-8.9) K/mcL Lymphocytes # 0.3 L (0.6-4.6) K/mcL Monocytes # 0.8 (0.0-1.3) K/mcL Eosinophils # 0.0 (0.0-0.6) K/mcL Basophils # 0.0 (0.0-0.2) K/mcL Sodium 129 L (136-145) mEq/L Potassium 5.6 H (3.5-5.1) mEq/L Chloride 99 (98-107) mEq/L Carbon Dioxide 21 L (23-29) mEq/L BUN 80 H (8-23) mg/dL Creatinine 3.17 H (0.70-1.30) mg/dL Est GFR ( Amer) 23 L (> 60) Est GFR (Non-Af Amer) 19 L (> 60) BUN/Creatinine Ratio 25 (6-26) Glucose 193 H (70-105) mg/dL Calculated Osmolality 297 (280-300) Calcium 8.6 (8.6-10.3) mg/dL Total Bilirubin 0.9 (0.3-1.0) mg/dL AST 17 (13-39) Units/L ALT 22 (7-52) Units/L Alkaline Phosphatase 182 H (34-104) Units/L Troponin I 0.09 H* (< 0.04) ng/mL Serum Total Protein 6.6 (6.4-8.9) g/dL Albumin 3.3 L (3.5-5.7) g/dL Globulin 3.3 (2.4-3.5) g/dL Albumin/Globulin Ratio 1.0 L (1.1-2.2) Urine Color Yellow (Yellow) Urine Clarity Cloudy A (Clear) Urine pH 5.5 (5.0-8.0) pH Units Ur Specific [place] 1.017 (1.010-1.025) Urine Protein Trace (Neg-Trace) mg/dL Urine Glucose (UA) Normal (Normal) mg/dL Urine Ketones Negative (Negative) mg/dL Urine Blood Moderate H (Negative) Urine Nitrite Negative (Negative) Urine Bilirubin Negative (Negative) Urine Urobilinogen Normal (Normal) mg/dL Ur Leukocyte Esterase Large H (Negative) Urine Microscopic RBC 3-5 H (0-3) per hpf Urine Microscopic WBC TNTC H (0-3) per hpf Ur Squamous Epith Cells Moderate H (None-Few) per lpf Urine Bacteria Many H (None-Few) per hpf Hyaline Casts None Seen (None-Few) per lpf Ur Culture Indicated? YES A (NO)
[2017-08-31 23:07] LABS: Basophils % 0.2 %; Eosinophils % 0.1 %; Hemoglobin 13.8 g/dL (12.9-16.9); Immature Granulocytes % 0.7 % (0-4); Lymphocytes # 0.3 K/mcL (0.6-4.6); Lymphocytes % 2.7 %; Mean Corpuscular HGB Conc 32.9 g/dL (31.6-35.5); Mean Corpuscular Hemoglobin 31.9 pg (28.0-33.3); Mean Platelet Volume 9.5 fL (9.4-12.4); Monocytes # 0.8 K/mcL (0.0-1.3); Neutrophils # 9.7 K/mcL (1.6-8.9); Platelet Count 154 K/mcL (140-400); Red Blood Count 4.33 M/mcL (4.19-5.50); Red Cell Distribution Width 13.2 % (11.5-14.5); Segmented Neutrophils % 89.3 %
[2017-08-31 23:31] LABS: Albumin 3.3 g/dL (3.5-5.7); Bilirubin,Total 0.9 mg/dL (0.3-1.0); Calcium 8.6 mg/dL (8.6-10.3); Globulin 3.3 g/dL (2.4-3.5); Potassium 5.6 mEq/L (3.5-5.1); Total Protein 6.6 g/dL (6.4-8.9)
[2017-08-31 23:40] LABS: Troponin I 0.09 ng/mL (< 0.04)
[2017-09-01 00:40] LABS: Bilirubin,Urine Negative (Negative); Blood,Urine Moderate (Negative); Clarity,Urine Cloudy (Clear); Color,Urine Yellow (Yellow); Glucose,Urine (UA) Normal (Normal); Ketones,Urine Negative (Negative); Leukocyte Esterase,Urine Large (Negative); Nitrite,Urine Negative (Negative); PH,Urine 5.5 pH Units (5.0-8.0); Protein,Urine Trace mg/dL (Neg-Trace); Specific Gravity,Urine 1.017 (1.010-1.025); Urobilinogen,Urine Normal (Normal)
[2017-09-01 00:42] LABS: Bacteria,Urine Many per hpf (None-Few); Hyaline Casts,Urine None Seen per lpf (None-Few); Squamous Epithelial Cell,Urine Moderate per lpf (None-Few); WBC,Urine TNTC per hpf (0-3)
[2017-09-01] MEDS ORDERED: Meropenem 1,000 MG in Water for inj. (sterile) 20 ML 10 ML IVP ONE (01:06)
[2017-09-01] MEDS: 0.9 % Sodium Chloride 1,000 ML IVC SCH ×4 (01:39→20:58)
[2017-09-01] MEDS ORDERED: *HR* Dextrose 50 % in Water (Syg) 50 ML SYRINGE IVP PRN (02:29)
[2017-09-01] MEDS ORDERED: Dextrose Gel 15 GM/37.5 ML TUBE PO PRN ×2 (02:29)
[2017-09-01] MEDS ORDERED: D5% in Water 1,000 ML IVC PRN (02:29)
--- NOTE | 2017-09-01 02:43 | Internal Med History&Physical ---
Date of Encounter: 09/01/17 Time of Encounter: 02:34 Internal Medicine - H&P: HPI Chief complaint: weakness Admitted From: Emergency Dept Plans for Post Hospital Care: Home History of present illness: Mr. Vázquez is a 86 year old male with PMH of pacemaker, HTN, DM, CKD stage 3, h/o DVT on anticoag, Alzheimer's, and recent diagnosis of CHF with EF of 45% for which cardiology saw hime in June and [facility] recommendations were discussed but not done at that time and patient elected to follow up in the outpatient setting. He comes in this time with complaints of right lower extremity weakness. The patient has been generally weak actually for about 10 days or so feeling "ill" per the ED. He tells me he has not been feeling well for about 2 days but he is not the best historian at the moment. There was family member in the ED earlier but not at the time of me seeing the patient. He was unable to get up from the commode due to weakness. He is walker dependent at baseline. He reports nausea and decreased appetite and has not been eating or drinking. Recently started on a medication to help him eat but unsure what it is. Denies fever, chills, vomiting, chest pain, abdominal pain, shortness of breath, diarrhea, constipation, urinary symptoms, or neurological symptoms. Work up in the ED revealed elevated creatinine, Na 129, K 5.6, Trops .09, WBC count and platelets above baseline. EKG was vent paced wiht no acute ischemic changes. CT abd/pelvis done showed emphsematous cystitis and UA was consistent with a UTI. Urology were called in the ED and recommended abx and will see the patient. The CT also mentioned enlarged medial left groin lymph node 3.45 cm. He was given meropenem for history of ESBL and started on IVF in the ED. Past Med Surg Social Fam HX - Past Medical History Medical history: DVT, diabetes, hypertension, kidney stones, renal disease, other Psychiatric history: anxiety - Past Surgical History Surgical History: herniorrhaphy, pacemaker/AICD - Social History Smoking Status: Never smoker Smokeless Tobacco Status: No Alcohol use: rarely Drug use: none - Family History Father Hx Family Cardiac Disorders: Yes Hx Family Respiratory Disorders: No Hx Family Cancer: No Hx Family GI Disorders: No Hx Family Endocrine Disorder: No Hx Family Neuromuscular Disorders: No Hx Family Neurologic Disorders: No Hx Family HEENT Disorders: No Hx Family Autoimmune Disorders: No Mother Family Member Ethnicity: Non- Living Status: Hx Family Cardiac Disorders: No Hx Family Respiratory Disorders: No Hx Family Cancer: No Hx Family GI Disorders: No Hx Family Endocrine Disorder: No Hx Family Neuromuscular Disorders: No Hx Family Neurologic Disorders: No Hx Family HEENT Disorders: No Hx Family Autoimmune Disorders: No Internal Medicine - H&P: Meds Tamsulosin [Flomax] 0.4 mg PO DAILY capsule 08/06/15 [Rx] Atorvastatin [Lipitor] 40 mg PO DAILY 09/07/15 [History] Insulin Glargine,Hum.rec.anlog [Lantus Solostar] 42 unit SQ QAM 09/07/15 [ History] Insulin LISPRO [HumaLOG] 0 - 10 units SQ QPM 09/07/15 [History] Metoprolol [Lopressor] 12.5 mg PO BID 09/07/15 [History] Gabapentin [Neurontin] 300 mg PO BID 04/18/17 [History] Glimepiride [Amaryl] 4 mg PO DAILY 04/18/17 [History] Losartan Potassium [Cozaar] 100 mg PO DAILY 04/18/17 [History] Sitagliptin Phosphate [Januvia] 50 mg PO Q48H 04/18/17 [History] Cholecalciferol (D-3) [Vitamin D] 2,000 unit PO DAILY 05/09/17 [History] Furosemide [Lasix] 40 mg PO DAILY 07/27/17 [History] Apixaban [Eliquis] 2.5 mg PO BID #60 tablet 07/30/17 [Rx] Aspirin Enteric Coated [Aspirin EC] 81 mg PO DAILY #30 tablet. 07/30/17 [Rx] Lisinopril [Zestril] 5 mg PO DAILY 09/01/17 [History] Ondansetron [Zofran ODT] 8 mg PO TID PRN 09/01/17 [History] PARoxetine HCl [Paroxetine HCl] 10 mg PO QAM 09/01/17 [History] diazePAM [Valium] 2 mg PO BID 09/01/17 [History] 3 Allergy/AdvReac Type Severity Reaction Status Date / Time No Known Allergies Allergy Verified 08/05/17 18:50 All Systems PM: A 10-system review of systems was performed and is negative for pertinent findings except as documented above in the HPI. Review of systems: All systems reviewed are negative except as mentioned above - Constitutional Vitals: Temp Pulse Resp BP Pulse Ox 98.3 F 70 18 127/62 95 08/31/17 22:22 09/01/17 01:43 09/01/17 01:43 09/01/17 01:43 09/01/17 01:43 Exam: GEN: NAD HEENT: AT, NC, No cyanosis, oral mucosa is moist, No JVD Lymphatics: No lymphadenoapthy Eyes: Extrocular muscles intact, anicteric CVS:RRR. S1, S2, No m/r/g RESP: CTAB ABD: Soft, NT, ND, +BS EXT: 2+ edema, No rashes, 2+ DP NEURO: Nonfocal, CN II-XII intact, No focal motor or sensory deficits Psych: Cooperative, Not anxious or depressed Internal Med - H&P Results - Labs CBC & Chem 7: 09/01/17 07:17 09/01/17 06:06 - Impressions ITS Impressions Abdomen/Pelvis CT 09/01/17 23:55 IMPRESSION: Gas in the wall of the urinary bladder consistent with emphysematous cystitis. There is an enlarged medial left groin lymph node measuring up to 3.45 cm. While this may be reactive, tumor should be considered due to the large size of this lymph node. Prostate gland is asymmetric and mildly to moderately enlarged. While this may represent hypertrophy, prostate tumor cannot be excluded. Critical results were called by Dr. Domenico Bañuelos MD to [place] Osorio on 09/01/2017 at 00:44. D/ / Domenico Bañuelos MD / Domneico Bañuelos MD Interpreting Provider: Domenico Bañuelos MD Head CT 09/01/17 23:55 IMPRESSION: No acute intracranial abnormality. Unchanged greater prominence of the right extra-axial space in the high right frontal region may represent small chronic subdural hematoma or hygroma. D/ / Domenico Bañuelos MD / Domenico Bañuelos MD Interpreting Provider: Domenico Bañuelos MD - Assessment and plan (1) Acute kidney injury superimposed on chronic kidney disease Current Visit: No Status: Acute Assessment and plan: Avoid nephrotoxins. Gentle hydration. Monitor respiratory status with EF of 45% . c/s nephrology. labs in am. Renal US. (2) Hyperkalemia Current Visit: Yes Status: Acute Assessment and plan: Likely from VIRGILIO. Will give kayexlate. Should see some improvement with IVF as well. labs in am (3) Elevated troponin Current Visit: Yes Status: Acute Assessment and plan: No chest pain. EKG unchanged. Trend for now. Likely demand ischemia. (4) Emphysematous cystitis Current Visit: Yes Status: Acute Assessment and plan: Urology to see. On meropenem (5) Hyponatremia Current Visit: Yes Status: Acute Assessment and plan: c/w gentle IVF. labs in am. Hold lasix (6) Knee pain Current Visit: Yes Status: Acute Assessment and plan: Xray of right knee showed severe tricompartmental degenerative changes. conservative management. PT/OT. Qualifiers: Chronicity: chronic Laterality: right Qualified Code(s): M25.561 - Pain in right knee; G89.29 - Other chronic pain; G89.29 - Other chronic pain (7) Diabetes mellitus Current Visit: No Status: Chronic Assessment and plan: Resume basal insulin. Insulin sliding scale. Accucheks. Qualifiers: Diabetes mellitus type: type 2 Diabetes mellitus senior living insulin use: with senior living use Diabetes mellitus complication status: with neurologic complications Diabetes mellitus complication detail: with polyneuropathy Qualified Code(s): E11.42 - Type 2 diabetes mellitus with diabetic polyneuropathy; Z79.4 - intermodal dispatcher (current) use of insulin; Z79.4 - intermodal dispatcher ( current) use of insulin; Z79.4 - intermodal dispatcher (current) use of insulin; Z79.4 - senior living (current) use of insulin (8) UTI (urinary tract infection) Current Visit: No Status: Acute Assessment and plan: Will continue meropenem started in ED. h/o ESBL. f/u on cultures. No blood cultures collected in the ED. Would get one if he spikes a temp. Qualifiers: Urinary tract infection type: acute cystitis Hematuria presence: without hematuria Qualified Code(s): N30.00 - Acute cystitis without hematuria (9) Systolic heart failure Current Visit: No Status: Chronic Assessment and plan: Patient does have LE edema about 2+. No respiratory symptoms. Patient may need to be diuresed but I would hold off for now to see what his kidney numbers look like with IV fludis. c/w cardiac meds. hold nephrotoxic ones. 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 on eliqus Qualifiers: Affected thrombotic vein of extremity: femoral Chronicity: chronic Qualified Code(s): I82.511 - Chronic embolism and thrombosis of right femoral vein (11) Lymph node enlargement Current Visit: Yes Status: Acute Assessment and plan: In the groin area. Consider repeat imaging down the road vs biopsy?? (12) DVT prophylaxis Current Visit: No Status: Acute Assessment and plan: On eliquis - Time Spent With Patient Total time spent is greater than 50% in coordination of care (as documented) at patient's floor/unit and/or counseling patient:
[2017-09-01] MEDS ORDERED: *HR* LORazepam 0.5 MG TABLET PO PRN (02:45)
[2017-09-01] MEDS ORDERED: Naloxone 0.4 MG/ML INJ IVP PRN (02:48)
[2017-09-01 06:21] LABS: Basophils % 0.1 %; Eosinophils % 0.1 %; Hematocrit 41.2 % (37.5-50.1); Hemoglobin 13.4 g/dL (12.9-16.9); Immature Granulocytes % 1.1 % (0-4); Lymphocytes # 0.2 K/mcL (0.6-4.6); Lymphocytes % 1.4 %; Mean Corpuscular HGB Conc 32.5 g/dL (31.6-35.5); Mean Corpuscular Hemoglobin 31.5 pg (28.0-33.3); Mean Corpuscular Volume 96.7 fL (83.0-100.0); Mean Platelet Volume 9.5 fL (9.4-12.4); Monocytes # 0.5 K/mcL (0.0-1.3); Monocytes % 4.5 %; Neutrophils # 10.5 K/mcL (1.6-8.9); Platelet Count 116 K/mcL (140-400); Red Blood Count 4.26 M/mcL (4.19-5.50); Red Cell Distribution Width 13.4 % (11.5-14.5); Segmented Neutrophils % 92.8 %
[2017-09-01 06:23] LABS: Platelet Estimate Slight Decrease (Normal)
[2017-09-01 06:41] LABS: Calcium 8.2 mg/dL (8.6-10.3); Magnesium 2.1 mg/dL (1.6-2.6); Potassium 5.3 mEq/L (3.5-5.1)
[2017-09-01] MEDS ORDERED: *HR* Heparin 5,000 UNIT/ML VIAL IVP PRN ×2 (07:02)
[2017-09-01] MEDS ORDERED: *HR* Heparin 5,000 UNIT/ML VIAL IVP ONE (07:02)
--- NOTE | 2017-09-01 07:23 | Event Note ---
Date of Encounter: 09/01/17 Time of Encounter: 07:22 Patient's trops are rising. Will start heparin drip given his history and c/s cardiology.
[2017-09-01 07:41] LABS: Hematocrit 40.8 % (37.5-50.1); Hemoglobin 13.4 g/dL (12.9-16.9); Mean Corpuscular HGB Conc 32.8 g/dL (31.6-35.5); Mean Corpuscular Hemoglobin 31.5 pg (28.0-33.3); Mean Corpuscular Volume 95.8 fL (83.0-100.0); Mean Platelet Volume 9.6 fL (9.4-12.4); Platelet Count 132 K/mcL (140-400); Red Blood Count 4.26 M/mcL (4.19-5.50); Red Cell Distribution Width 13.4 % (11.5-14.5)
[2017-09-01 07:48] LABS: INR 1.4; Prothrombin Time 14.7 Seconds (9.4-12.1)
[2017-09-01 07:51] LABS: Activated Partial Thrombo Time 29.2 Seconds (26.0-36.0)
--- NOTE | 2017-09-01 08:12 | Urology - Consult Note ---
Date of Encounter: 09/01/17 Time of Encounter: 08:10 - Assessment and Plan (1) Emphysematous cystitis Current Visit: Yes Status: Acute Assessment and plan: Patient has catheter in place which will need to remain in place at this time. This is providing optimal drainage of the patient's bladder. We will need to continue with broad-spectrum antibiotics until urine and blood cultures return. Expect that patient may need catheter drainage for longer term. (2) Acute kidney injury superimposed on chronic kidney disease Current Visit: No Status: Acute Assessment and plan: Patient serum creatinine markedly elevated above baseline which appears to be in the mid 1 range. Continue with catheter drainage and IV fluid. We will need to follow closely. No evidence of hydronephrosis on CT scan. Urology CN:UCHE Consult date: 09/01/17 Reason for consult Urology: Other (Emphysematous cystitis) Requesting physician: Davian Pope History of present illness: Mathew is a 86-year-old male known to Dr. Lara for undergoing greenlight prostate procedure in the past. Patient has last been evaluated and 2016 and patient has had problems with urinary tract infections in the past. Patient now admitted secondary to weakness. Patient somnolent this morning and unable to answer questions well. Patient did have a CT scan done upon arrival to the hospital which revealed emphysematous cystitis. Catheter has been placed. Patient had a low-grade fever last night. WBC count normal at this time. Cultures are pending the patient obviously has a urinary tract infection at this time. Past Med Surg Social Fam HX - Past Medical History Medical history: DVT, diabetes, hypertension, kidney stones, renal disease, other Psychiatric history: anxiety - Past Surgical History Surgical History: herniorrhaphy, pacemaker/AICD - Social History Smoking Status: Never smoker Smokeless Tobacco Status: No Alcohol use: rarely Drug use: none - Family History Father Hx Family Cardiac Disorders: Yes Hx Family Respiratory Disorders: No Hx Family Cancer: No Hx Family GI Disorders: No Hx Family Endocrine Disorder: No Hx Family Neuromuscular Disorders: No Hx Family Neurologic Disorders: No Hx Family HEENT Disorders: No Hx Family Autoimmune Disorders: No Mother Family Member Ethnicity: Non- Living Status: Hx Family Cardiac Disorders: No Hx Family Respiratory Disorders: No Hx Family Cancer: No Hx Family GI Disorders: No Hx Family Endocrine Disorder: No Hx Family Neuromuscular Disorders: No Hx Family Neurologic Disorders: No Hx Family HEENT Disorders: No Hx Family Autoimmune Disorders: No Medications and Allergies Tamsulosin [Flomax] 0.4 mg PO DAILY capsule 08/06/15 [Rx] Atorvastatin [Lipitor] 40 mg PO DAILY 09/07/15 [History] Insulin Glargine,Hum.rec.anlog [Lantus Solostar] 42 unit SQ DAILY 09/07/15 [ History] Insulin LISPRO [HumaLOG] 10 units SQ QPM 09/07/15 [History] Metoprolol [Lopressor] 12.5 mg PO BID 09/07/15 [History] Gabapentin [Neurontin] 300 mg PO BID 04/18/17 [History] Glimepiride [Amaryl] 4 mg PO DAILY 04/18/17 [History] Losartan Potassium [Cozaar] 100 mg PO DAILY 04/18/17 [History] Sitagliptin Phosphate [Januvia] 50 mg PO Q48H 04/18/17 [History] Cholecalciferol (D-3) [Vitamin D] 2,000 unit PO DAILY 05/09/17 [History] Furosemide [Lasix] 40 mg PO DAILY 07/27/17 [History] Apixaban [Eliquis] 2.5 mg PO BID #60 tablet 07/30/17 [Rx] Aspirin Enteric Coated [Aspirin EC] 81 mg PO DAILY #30 tablet. 07/30/17 [Rx] LORazepam [Ativan] 0.5 mg PO BID PRN 4 Days #8 tablet 08/07/17 [Rx] 3 Allergy/AdvReac Type Severity Reaction Status Date / Time No Known Allergies Allergy Verified 08/05/17 18:50 Review of Systems ROS unobtainable: due to mental status Exam Initial Vital Signs Temp Pulse Resp BP Pulse Ox 98.3 F 71 18 129/62 96 08/31/17 22:22 08/31/17 22:22 08/31/17 22:22 08/31/17 22:22 08/31/17 22:22 General/Neuological: asleep and somnolent Eyes: normal pupils, non-icteric Neck: no lymphadenopathy noted, supple to touch Cardiovascular: RRR, no murmurs, no jvd Respiratory: normal respiratory effort, clear bilaterally ABD: soft, nontender, no masses palpated, good bowel sounds Back: no pain on percussion bilaterally : normal phallus, normal scrotum, testicles and epididymides normal, urethral meatus normal., catheter in place with clear urine with some debris in tubing Skin: no rashes noted, not clammy. Musculoskeletal: weakness with movement of all 4 extremeties. Urology Results - Labs 09/01/17 07:17 09/01/17 06:06 Abnormal lab results WBC 13.0 K/mcL (4.3-11.1) H 09/01/17 07:17 Plt Count 132 K/mcL (140-400) L 09/01/17 07:17 Neutrophils # 10.5 K/mcL (1.6-8.9) H 09/01/17 06:06 Lymphocytes # 0.2 K/mcL (0.6-4.6) L 09/01/17 06:06 Platelet Estimate Slight Decrease (Normal) L 09/01/17 06:06 PT 14.7 Seconds (9.4-12.1) H 09/01/17 07:17 Sodium 130 mEq/L (136-145) L 09/01/17 06:06 Potassium 5.3 mEq/L (3.5-5.1) H 09/01/17 06:06 Carbon Dioxide 20 mEq/L (23-29) L 09/01/17 06:06 BUN 78 mg/dL (8-23) H 09/01/17 06:06 Creatinine 3.12 mg/dL (0.70-1.30) H 09/01/17 06:06 Est GFR ( Amer) 23 (> 60) L 09/01/17 06:06 Est GFR (Non-Af Amer) 19 (> 60) L 09/01/17 06:06 Glucose 168 mg/dL (70-105) H 09/01/17 06:06 Calcium 8.2 mg/dL (8.6-10.3) L 09/01/17 06:06 Alkaline Phosphatase 182 Units/L (34-104) H 08/31/17 22:55 Troponin I 0.21 ng/mL (< 0.04) H* 09/01/17 06:06 Albumin 3.3 g/dL (3.5-5.7) L 08/31/17 22:55 Albumin/Globulin Ratio 1.0 (1.1-2.2) L 08/31/17 22:55 Urine Clarity Cloudy (Clear) A 09/01/17 00:25 Urine Blood Moderate (Negative) H 09/01/17 00:25 Ur Leukocyte Esterase Large (Negative) H 09/01/17 00:25 Urine Microscopic RBC 3-5 per hpf (0-3) H 09/01/17 00:25 Urine Microscopic WBC TNTC per hpf (0-3) H 09/01/17 00:25 Ur Squamous Epith Cells Moderate per lpf (None-Few) H 09/01/17 00:25 Urine Bacteria Many per hpf (None-Few) H 09/01/17 00:25 Ur Culture Indicated? YES (NO) A 09/01/17 00:25 Diabetes panel 09/01/17 Range/Units 06:06 Sodium 130 L (136-145) mEq/L Potassium 5.3 H (3.5-5.1) mEq/L Chloride 100 (98-107) mEq/L Carbon Dioxide 20 L (23-29) mEq/L BUN 78 H (8-23) mg/dL Creatinine 3.12 H (0.70-1.30) mg/dL Glucose 168 H (70-105) mg/dL Calcium 8.2 L (8.6-10.3) mg/dL Calcium panel 09/01/17 Range/Units 06:06 Calcium 8.2 L (8.6-10.3) mg/dL Pituitary panel 09/01/17 Range/Units 06:06 Sodium 130 L (136-145) mEq/L Potassium 5.3 H (3.5-5.1) mEq/L Chloride 100 (98-107) mEq/L Carbon Dioxide 20 L (23-29) mEq/L BUN 78 H (8-23) mg/dL Creatinine 3.12 H (0.70-1.30) mg/dL Glucose 168 H (70-105) mg/dL Calcium 8.2 L (8.6-10.3) mg/dL Adrenal panel 09/01/17 Range/Units 06:06 Sodium 130 L (136-145) mEq/L Potassium 5.3 H (3.5-5.1) mEq/L Chloride 100 (98-107) mEq/L Carbon Dioxide 20 L (23-29) mEq/L BUN 78 H (8-23) mg/dL Creatinine 3.12 H (0.70-1.30) mg/dL Glucose 168 H (70-105) mg/dL Calcium 8.2 L (8.6-10.3) mg/dL All other labs normal. - Imaging CT scan - abdomen: image reviewed CT scan - pelvis: image reviewed Consult Discharge Plan - Plan Referrals: Radha Jones, MERC[facility]EZ [Primary Care Provider] -
[2017-09-01] MEDS ORDERED: cefTRIAXone 1,000 MG in 0.9 % Sodium Chloride Mini Bag 100 ML IVPB SCH (09:00)
[2017-09-01] MEDS ORDERED: Apixaban 5 MG TABLET PO SCH (09:00)
[2017-09-01] MEDS: Heparin 25,000 UNIT/500 ML D5W 25,000 UNIT/500 ML BAG IVC SCH ×2 (09:09→23:31)
[2017-09-01] MEDS: Insulin DETEMIR 100 UNIT/ML X5UNITS SQ SCH (09:22)
[2017-09-01] MEDS: Gabapentin 300 MG CAPSULE PO SCH ×2 (09:25→20:32)
[2017-09-01] MEDS: Cholecalciferol (D-3) 1,000 UNIT TABLET PO SCH (09:26)
[2017-09-01] MEDS: Aspirin Enteric Coated 81 MG Tablet PO SCH (09:26)
[2017-09-01] MEDS: Insulin LISPRO 300 UNITS/3 ML VIAL SQ SCH ×4 (09:28→20:32)
[2017-09-01] MEDS ORDERED: Meropenem 1,000 MG in Water for inj. (sterile) 20 ML 10 ML IVP SCH (10:00)
--- NOTE | 2017-09-01 11:13 | Cardiology Consult Note ---
<Arlen Estrada - Last Filed: 09/01/17 11:20> Date of Encounter: 09/01/17 Time of Encounter: 11:12 Assessment and Plan (1) Elevated troponin Current Visit: Yes Status: Acute Patient's troponin increased from .09 to .21. Patient denies chest pain or pressure. Agree with heparin treatment at this time. Renal function needs to be optimized before cardiac cath can be considered. Await nephrology consultations. Patient appears volume overloaded, may consider decreasing fluids. Discussion w patient/family: The assessment and plan as outlined above was discussed with the patient and/or family members who expressed understanding and agreement. All questions were answered. Thank you for involving us in the care of your patient. Please call with any questions. History of Present Illness Consult date: 09/01/17 Consult reason: Elevated troponin History of present illness: Mr. Vázquez is a 86 year old male PMH of pacemaker, HTN, DM, CKD stage 3, h/ o DVT on anticoag, Alzheimer's, and recent diagnosis of CHF with EF of 45% for which cardiology saw him in June and [facility] recommendations were discussed but not done at that time and patient elected to follow up in the outpatient setting. Patient denies cath at that time. Patient admitted for increasing weakness over the past 3 days and worsening bilateral LE edema over the last 3- 4 weeks. Patient denies any chest pain, pressure or palpitations during this. Patient is a poor historian. Denies any history of stents or CABG. Past Med Surg Social Fam HX - Past Medical History Medical history: DVT, diabetes, hypertension, kidney stones, renal disease, other Psychiatric history: anxiety - Past Surgical History Surgical History: herniorrhaphy, pacemaker/AICD - Social History Smoking Status: Never smoker Smokeless Tobacco Status: No Alcohol use: rarely Drug use: none - Family History Father Hx Family Cardiac Disorders: Yes Hx Family Respiratory Disorders: No Hx Family Cancer: No Hx Family GI Disorders: No Hx Family Endocrine Disorder: No Hx Family Neuromuscular Disorders: No Hx Family Neurologic Disorders: No Hx Family HEENT Disorders: No Hx Family Autoimmune Disorders: No Mother Family Member Ethnicity: Non- Living Status: Hx Family Cardiac Disorders: No Hx Family Respiratory Disorders: No Hx Family Cancer: No Hx Family GI Disorders: No Hx Family Endocrine Disorder: No Hx Family Neuromuscular Disorders: No Hx Family Neurologic Disorders: No Hx Family HEENT Disorders: No Hx Family Autoimmune Disorders: No Medications and Allergies Tamsulosin [Flomax] 0.4 mg PO DAILY capsule 08/06/15 [Rx] Atorvastatin [Lipitor] 40 mg PO DAILY 09/07/15 [History] Insulin Glargine,Hum.rec.anlog [Lantus Solostar] 42 unit SQ QAM 09/07/15 [ History] Insulin LISPRO [HumaLOG] 0 - 10 units SQ QPM 09/07/15 [History] Metoprolol [Lopressor] 12.5 mg PO BID 09/07/15 [History] Gabapentin [Neurontin] 300 mg PO BID 04/18/17 [History] Glimepiride [Amaryl] 4 mg PO DAILY 04/18/17 [History] Losartan Potassium [Cozaar] 100 mg PO DAILY 04/18/17 [History] Sitagliptin Phosphate [Januvia] 50 mg PO Q48H 04/18/17 [History] Cholecalciferol (D-3) [Vitamin D] 2,000 unit PO DAILY 05/09/17 [History] Furosemide [Lasix] 40 mg PO DAILY 07/27/17 [History] Apixaban [Eliquis] 2.5 mg PO BID #60 tablet 07/30/17 [Rx] Aspirin Enteric Coated [Aspirin EC] 81 mg PO DAILY #30 tablet. 07/30/17 [Rx] Lisinopril [Zestril] 5 mg PO DAILY 09/01/17 [History] Ondansetron [Zofran ODT] 8 mg PO TID PRN 09/01/17 [History] PARoxetine HCl [Paroxetine HCl] 10 mg PO QAM 09/01/17 [History] diazePAM [Valium] 2 mg PO BID 09/01/17 [History] 3 Allergy/AdvReac Type Severity Reaction Status Date / Time No Known Allergies Allergy Verified 08/05/17 18:50 All Systems Review: The remainder of the systems were reviewed and are negative - Constitutional Constitutional: weakness, no fever(s) - EENT Eyes: no blurred vision, no loss of vision - Cardiovascular Cardiovascular: as per HPI - Respiratory Respiratory: no cough, no hemoptysis - Gastrointestinal Gastrointestinal: no abdominal pain, no diarrhea - Musculoskeletal Musculoskeletal: muscle weakness, no abnormal gait - Integumentary Integumentary: no rash - Neurological Neurological: no abnormal speech, no focal weakness Physical Examination General: Conversant, No Apparent Distress HEENT: Atraumatic, Normocephaly, Mucus Membranes Moist Neck: No JVD, Normal carotid pulses Cardiac: Reg Rate and Rhythm, Normal S1 and S2 Lungs: Normal Breath Sounds, No Wheeze, Rales, Rhonchi Neuro: Alert and responsive, No focal deficits noted Abdomen: Soft, Non-Tender Skin: No rashes noted on visualized skin Musculoskeletal: No Chest Wall Tenderness Extremities: Normal Pulses, Other (3+ pitting edema in b/l LE) Results 09/01/17 07:17 09/01/17 06:06 Lab Results 09/01/17 09/01/17 09/01/17 06:06 06:06 06:06 WBC 11.3 H Hgb 13.4 Hct 41.2 Plt Count 116 L INR APTT Sodium 130 L Potassium 5.3 H Chloride 100 Carbon Dioxide 20 L BUN 78 H Creatinine 3.12 H Glucose 168 H Calcium 8.2 L Magnesium 2.1 Troponin I 0.21 H* 09/01/17 09/01/17 07:17 07:17 WBC 13.0 H Hgb 13.4 Hct 40.8 Plt Count 132 L INR 1.4 APTT 29.2 Sodium Potassium Chloride Carbon Dioxide BUN Creatinine Glucose Calcium Magnesium Troponin I Consult Discharge Plan - Plan Referrals: Radha Jones, PROCESS SAFETY SPECIALIST [Primary Care Provider] - <Kristine Craig - Last Filed: 09/01/17 12:31> Date of Encounter: 09/01/17 - Attending Attestation I examined this patient and my medical decision-making was reviewed with the Resident Physician. I agree with the documented findings, disposition and treatment plan. Mr. Vázquez is readmitted for weakness. He was recently evaluated by Cardiology during an admission at the end of June 2017 for newly discovered reduced LVEF, 45%. At that time, LHC was recommended but patient declined. He returns today with elevated troponin 0.21. ECG paced rhythm. At the bedside, the patient is very sleepy but somewhat arousable. He seems to be agreeable to LHC but will have to return to discuss when he is more awake. At this time, need to optimize kidney status, presents with ARF, prior to considering LHC. Recommend Nephrology consult. Agree with heparin gtt, asa, statin, BB. Assessment and Plan Discussion w patient/family: The assessment and plan as outlined above was discussed with the patient and/or family members who expressed understanding and agreement. All questions were answered. Thank you for involving us in the care of your patient. Please call with any questions. History of Present Illness History of present illness: Mr. Vázquez is a 86 year old male All Systems Review: The remainder of the systems were reviewed and are negative Physical Examination Vital Signs, Last 4 Hours Temp Pulse Resp BP Pulse Ox 09/01/17 10:02 98.7 F 73 16 106/58 96 Results 09/01/17 07:17 09/01/17 06:06 Lab Results 09/01/17 09/01/17 09/01/17 06:06 06:06 06:06 WBC 11.3 H Hgb 13.4 Hct 41.2 Plt Count 116 L INR APTT Sodium 130 L Potassium 5.3 H Chloride 100 Carbon Dioxide 20 L BUN 78 H Creatinine 3.12 H Glucose 168 H Calcium 8.2 L Magnesium 2.1 Troponin I 0.21 H* 09/01/17 09/01/17 07:17 07:17 WBC 13.0 H Hgb 13.4 Hct 40.8 Plt Count 132 L INR 1.4 APTT 29.2 Sodium Potassium Chloride Carbon Dioxide BUN Creatinine Glucose Calcium Magnesium Troponin I
--- NOTE | 2017-09-01 13:36 | Event Note ---
Date of Encounter: 09/01/17 Time of Encounter: 08:45 Patient lying in bed. Denies any chest pain. No dizziness or lightheadedness. Troponins elevated this morning. Patient has been placed on IV heparin drip. Cardiology consulted. We will follow recommendations. Will change antibiotic to ertapenem as patient has had ESBL Escherichia coli sensitive to ertapenem in the past and does not need additional coverage for pseudomonas at this time. Await culture results. Urology and nephrology also consulted. Trend troponins.
--- NOTE | 2017-09-01 18:15 | Nephrology Consult Note ---
Date of Encounter: 09/01/17 Time of Encounter: 17:15 Assessment and Plan (1) Acute kidney injury superimposed on chronic kidney disease Status: Acute Most likely prerenal VIRGILIO on CKD stage III. Agree with the interventions earlier today such as kayexalte and IVF. I suspect he will respond to volume expansion. Will track K, Na, SCr. Chronic lymphedema to the LEs, so I recommend HENRY gonzales. Discussed with the hospitalist. Cont to follow a renal protective strategy. No urgent HD indications tonight. Will follow with you (2) Hyperkalemia Status: Resolved (3) Hyponatremia Status: Acute (4) Leg edema Status: Acute (5) Hypertension Status: Chronic Qualifiers: Hypertension type: essential hypertension Qualified Code(s): I10 - Essential (primary) hypertension History of Present Illness - Reason for Consult Consult date: 09/01/17 Acute Kidney Injury, Chronic Kidney Disease, hyperkalemia Requesting physician: Valentina Wayne - Chief Complaint VIRGILIO on CKD - History of Present Illness Mathew Vázquez is a very pleasant 86 y/o WM with a pmh that in part includes CKD and etc who presented with findings of emphysematous cystitis and VIRGILIO on CKD. He did not affirm N/V/D and had been feeling poorly for several days. His family was present when I saw and interviewed him in the 2N unit. He did not affirm taking NSAIDs or having a family of ESRD. He has never previously been on dialysis. Urology saw the pt today; he has a maria catheter in place and has received IVF. Past Med Surg Social Fam HX - Past Medical History Medical history: DVT, diabetes, hypertension, kidney stones, renal disease, other Psychiatric history: anxiety - Past Surgical History Surgical History: herniorrhaphy, pacemaker/AICD - Social History Smoking Status: Never smoker Smokeless Tobacco Status: No Alcohol use: rarely Drug use: none - Family History Father Hx Family Cardiac Disorders: Yes Hx Family Respiratory Disorders: No Hx Family Cancer: No Hx Family GI Disorders: No Hx Family Endocrine Disorder: No Hx Family Neuromuscular Disorders: No Hx Family Neurologic Disorders: No Hx Family HEENT Disorders: No Hx Family Autoimmune Disorders: No Mother Family Member Ethnicity: Non- Living Status: Hx Family Cardiac Disorders: No Hx Family Respiratory Disorders: No Hx Family Cancer: No Hx Family GI Disorders: No Hx Family Endocrine Disorder: No Hx Family Neuromuscular Disorders: No Hx Family Neurologic Disorders: No Hx Family HEENT Disorders: No Hx Family Autoimmune Disorders: No Medications and Allergies Tamsulosin [Flomax] 0.4 mg PO DAILY capsule 08/06/15 [Rx] Atorvastatin [Lipitor] 40 mg PO DAILY 09/07/15 [History] Insulin Glargine,Hum.rec.anlog [Lantus Solostar] 42 unit SQ QAM 09/07/15 [ History] Insulin LISPRO [HumaLOG] 0 - 10 units SQ QPM 09/07/15 [History] Metoprolol [Lopressor] 12.5 mg PO BID 09/07/15 [History] Glimepiride [Amaryl] 4 mg PO DAILY 04/18/17 [History] Sitagliptin Phosphate [Januvia] 50 mg PO Q48H 04/18/17 [History] Cholecalciferol (D-3) [Vitamin D] 2,000 unit PO DAILY 05/09/17 [History] Furosemide [Lasix] 40 mg PO DAILY 07/27/17 [History] Apixaban [Eliquis] 2.5 mg PO BID #60 tablet 07/30/17 [Rx] Aspirin Enteric Coated [Aspirin EC] 81 mg PO DAILY #30 tablet. 07/30/17 [Rx] Ondansetron [Zofran ODT] 8 mg PO TID PRN 09/01/17 [History] PARoxetine HCl [Paroxetine HCl] 10 mg PO QAM 09/01/17 [History] Ertapenem [INVanz] 1,000 mg IVPB DAILY #8 vial 09/06/17 [Rx] Gabapentin [Neurontin] 300 mg PO BID 7 Days #14 capsule 09/06/17 [Rx] Losartan [Cozaar] 25 mg PO DAILY #30 tablet 09/06/17 [Rx] diazePAM [Valium] 2 mg PO BID 7 Days #14 tablet 09/06/17 [Rx] Ertapenem [INVanz] 1,000 mg IV DAILY #8 vial 09/07/17 [Rx] 3 Allergy/AdvReac Type Severity Reaction Status Date / Time No Known Allergies Allergy Verified 08/05/17 18:50 Review of Systems All Systems: reviewed and no additional remarkable complaints except as stated Exam - Vital Signs Vital signs: Initial Vital Signs Temp Pulse Resp BP Pulse Ox 98.3 F 71 18 129/62 96 08/31/17 22:22 08/31/17 22:22 08/31/17 22:22 08/31/17 22:22 08/31/17 22:22 Vital Signs - Last 8 Hours Temp Pulse Resp BP Pulse Ox 09/01/17 14:18 98.8 F 79 16 104/68 94 Intake and Output 09/01/17 09/01/17 09/01/17 07:59 15:59 23:59 Intake Total 50 / 50 1360 / 1360 283 / 283 Output Total 850 / 850 250 / 250 200 / 200 Balance -800 / -800 1110 / 1110 83 / 83 Intake: IV Fluids 1000 / 1000 283 / 283 0.9 % Sodium Chloride 1,000 ML 1000 / 1000 @ 125 mls/hr IVC .Q8H PAWAN Rx#: [id number] Heparin 25,000 UNIT/500 ML D5W 263 / 263 25,000 unit In 500 ml @ 12 UNIT /KG/HR 37.557 mls/hr IVC . [id number] PAWAN Rx#:[id number] Merrem 1,000 MG In Water for inj. (sterile) 10 ML @ 200 mls/ hr IVP Q8H PWAAN Rx#:[id number] Oral 50 / 50 360 / 360 Output: Catheter 850 / 850 250 / 250 200 / 200 Other: Meal Lunch Percent of Meal Consumed 95% Blood Glucose* 170 206 138 - General Appearance General appearance: well-developed, appears started age, fatigue, frail EENT: ATNC, PERRL, mucous membranes dry Neck: supple Respiratory: clear Cardiology: regular rate, regular rhythm, normal S1, normal S2 Gastrointestinal: normoactive bowel sounds, no tenderness, no guarding Integumentary: warm and dry Neurologic: no focal deficit, no asterixis Musculoskeletal: no erythema, no clubbing Psychiatric: mood/affect appropriate, cooperative Results - Lab Results 09/06/17 04:05 09/06/17 05:14 Most recent lab results Calcium 8.2 mg/dL (8.6-10.3) L 09/01/17 06:06 Magnesium 2.1 mg/dL (1.6-2.6) 09/01/17 06:06 I reviewed the labs, meds, vitals, imaging, progress notes Consult Discharge Plan - Plan Referrals: Selvin Lin MD [Partnered Physician] - 09/21/17 9:30 am () Radha Jones CNP [Primary Care Provider] - (PATIENT IS GOING TO [facility], NO PCP APPOINTMENT NEEDED) Prescriptions: diazePAM [Valium] 2 mg PO BID 7 Days #14 tablet Ertapenem [INVanz] 1,000 mg IVPB DAILY #8 vial Ertapenem [INVanz] 1,000 mg IV DAILY #8 vial Gabapentin [Neurontin] 300 mg PO BID 7 Days #14 capsule Losartan [Cozaar] 25 mg PO DAILY #30 tablet
[2017-09-01] MEDS: Acetaminophen 325 MG TABLET PO PRN (23:33)
[2017-09-02 06:13] LABS: Basophils % 0.1 %; Eosinophils % 0.4 %; Hematocrit 35.5 % (37.5-50.1); Hemoglobin 11.6 g/dL (12.9-16.9); Immature Granulocytes % 0.9 % (0-4); Lymphocytes # 0.3 K/mcL (0.6-4.6); Lymphocytes % 3.7 %; Mean Corpuscular HGB Conc 32.7 g/dL (31.6-35.5); Mean Corpuscular Hemoglobin 31.5 pg (28.0-33.3); Mean Corpuscular Volume 96.5 fL (83.0-100.0); Mean Platelet Volume 9.6 fL (9.4-12.4); Monocytes # 0.9 K/mcL (0.0-1.3); Monocytes % 9.2 %; Neutrophils # 7.9 K/mcL (1.6-8.9); Platelet Count 124 K/mcL (140-400); Red Blood Count 3.68 M/mcL (4.19-5.50); Red Cell Distribution Width 13.4 % (11.5-14.5); Segmented Neutrophils % 85.7 %
--- NOTE | 2017-09-02 06:32 | Electrocardiograph Report ---
[address] [place], [place] [address] Test Date: 2017-08-31 Pat Name: Mathew Vázquez Department: 102 Room: 2N05 Gender: M Industrial Methods Consultant: [facility] : 1930 Requested By: [id number] Order Number: [id number] Reading MD: Vu Finch Measurements Intervals [place] Rate: 70 P: NC: 0 QRS: -69 QRSD: 193 T: 94 QT: 434 QTc: 454 Interpretive Statements ELECTRONIC VENTRICULAR PACEMAKER Electronically Signed On 09-02-2017 6:31:10 EDT by Vu Finch
[2017-09-02 06:39] LABS: Calcium 7.6 mg/dL (8.6-10.3); Magnesium 2.2 mg/dL (1.6-2.6); Phosphorous 4.9 mg/dL (2.7-4.5); Potassium 4.9 mEq/L (3.5-5.1); Uric Acid 9.2 mg/dL (2.3-7.6)
--- NOTE | 2017-09-02 07:20 | Urology Progress Note ---
Date of Encounter: 09/02/17 Time of Encounter: 07:18 - Assessment and Plan (1) Emphysematous cystitis Current Visit: Yes Status: Acute Assessment and plan: Cultures still pending regarding sensitivities. Agree with current antibiotics. Continue with catheter drainage. (2) Acute kidney injury superimposed on chronic kidney disease Current Visit: No Status: Acute Assessment and plan: Slowly improving serum creatinine. Nephrology consulted and on board. Progress Note Narrative: Patient seen this morning. Patient feeling better. Urine cultures positive for Escherichia coli pending sensitivities. Serum creatinine slightly improved. Good clear urine output. Objective Initial Vital Signs Temp Pulse Resp BP Pulse Ox 98.3 F 71 18 129/62 96 08/31/17 22:22 08/31/17 22:22 08/31/17 22:22 08/31/17 22:22 08/31/17 22:22 - General physical appearance Present: well developed, well nourished, no distress - Respiratory Present: normal expansion, normal respiratory effort - Abdomen Present: soft. Absent: tender - Genitourinary Present: other (Normal phallus and meatus, normal testicles. Catheter draining clear urine) - Labs 09/02/17 05:36 09/02/17 05:36 Diabetes panel 09/02/17 Range/Units 05:36 Sodium 131 L (136-145) mEq/L Potassium 4.9 (3.5-5.1) mEq/L Chloride 102 (98-107) mEq/L Carbon Dioxide 22 L (23-29) mEq/L BUN 77 H (8-23) mg/dL Creatinine 2.76 H (0.70-1.30) mg/dL Glucose 72 (70-105) mg/dL Calcium 7.6 L (8.6-10.3) mg/dL Calcium panel 09/02/17 Range/Units 05:36 Calcium 7.6 L (8.6-10.3) mg/dL Phosphorus 4.9 H (2.7-4.5) mg/dL Pituitary panel 09/02/17 Range/Units 05:36 Sodium 131 L (136-145) mEq/L Potassium 4.9 (3.5-5.1) mEq/L Chloride 102 (98-107) mEq/L Carbon Dioxide 22 L (23-29) mEq/L BUN 77 H (8-23) mg/dL Creatinine 2.76 H (0.70-1.30) mg/dL Glucose 72 (70-105) mg/dL Calcium 7.6 L (8.6-10.3) mg/dL Adrenal panel 09/02/17 Range/Units 05:36 Sodium 131 L (136-145) mEq/L Potassium 4.9 (3.5-5.1) mEq/L Chloride 102 (98-107) mEq/L Carbon Dioxide 22 L (23-29) mEq/L BUN 77 H (8-23) mg/dL Creatinine 2.76 H (0.70-1.30) mg/dL Glucose 72 (70-105) mg/dL Calcium 7.6 L (8.6-10.3) mg/dL Consult Discharge Plan - Plan Referrals: Radha Jones, HEAVY DUTY PRESS OPERATOR [Primary Care Provider] -
[2017-09-02] MEDS: Aspirin Enteric Coated 81 MG Tablet PO SCH (08:53)
[2017-09-02] MEDS: Gabapentin 300 MG CAPSULE PO SCH ×2 (08:53→20:16)
[2017-09-02] MEDS: Cholecalciferol (D-3) 1,000 UNIT TABLET PO SCH (08:53)
[2017-09-02] MEDS: Insulin LISPRO 300 UNITS/3 ML VIAL SQ SCH ×4 (08:54→21:00)
[2017-09-02] MEDS: Insulin DETEMIR 100 UNIT/ML X5UNITS SQ SCH (08:58)
--- NOTE | 2017-09-02 09:42 | Cardiology Progress Note ---
Date of Encounter: 09/02/17 Time of Encounter: 09:00 Assessment and Plan (1) Elevated troponin Current Visit: Yes Status: Acute Patient's troponin increasing now to 0.41. During last visit, LHC was recommended due to newly discovered reduced LVEF but patient declined. Discussed this with the patient today. He would like to proceed with LHC before discharge. Recommend optimizing renal function prior to consideration. Trend troponins for downtrend. Continue asa, statin, BB and heparin gtt. Would appreciate further clarification of CT head findings prior to considering LHC: "Unchanged greater prominence of the right extra-axial space in the high right frontal region may represent small chronic subdural hematoma or hygroma." At this time we will sign off. Please optimize renal function and clarify CT findings. Once patient is optimized for LHC, please reconsult. Discussion w patient/family: The assessment and plan as outlined above was discussed with the patient and/or family members who expressed understanding and agreement. All questions were answered. Thank you for involving us in the care of your patient. Please call with any questions. Subjective Principal diagnosis: Elevated Troponin, cystitis, ARF on CKD Interval history: No acute overnight events. Patient alert this morning. Able to answer questions. States he's feeling better. Denies chest pain. Objective Vital Signs, Last 4 Hours Temp Pulse Resp BP Pulse Ox 09/02/17 07:42 98.9 F 70 16 122/66 98 General: Conversant, No Apparent Distress HEENT: Mucus Membranes Moist Cardiac: Reg Rate and Rhythm, Normal S1 and S2, No Murmur Lungs: Normal Breath Sounds Neuro: Alert and responsive, No focal deficits noted Abdomen: Soft, Other (normal bowel sounds) Extremities: Other (lymphedema bilaterally) Results 09/02/17 05:36 09/02/17 05:36 Lab Results 09/01/17 09/01/17 09/01/17 11:37 14:41 22:56 WBC Hgb Hct Plt Count APTT 95.1 H D 63.8 H Sodium Potassium Chloride Carbon Dioxide BUN Creatinine Glucose Calcium Magnesium Troponin I 0.41 H* B-Natriuretic Peptide 09/02/17 09/02/17 09/02/17 05:36 05:36 05:36 WBC 9.2 Hgb 11.6 L D Hct 35.5 L Plt Count 124 L APTT Sodium 131 L Potassium 4.9 Chloride 102 Carbon Dioxide 22 L BUN 77 H Creatinine 2.76 H Glucose 72 Calcium 7.6 L Magnesium 2.2 Troponin I B-Natriuretic Peptide 587 H 09/02/17 05:36 WBC Hgb Hct Plt Count APTT 55.8 H Sodium Potassium Chloride Carbon Dioxide BUN Creatinine Glucose Calcium Magnesium Troponin I B-Natriuretic Peptide - Imaging and Cardiology Other Results: Head CT reviewed-nothing acute, possible extraaxial chronic hematoma/hygrom - EKG Interpretation EKG results cardiology: other (24h telemetry reviewed demonstrating average HR 73 bpm, no concerning dysrhythmia) Consult Discharge Plan - Plan Referrals: Radha Jones, [employer] 8 [employer]OR [Primary Care Provider] -
[2017-09-02] MEDS: 0.9 % Sodium Chloride 1,000 ML IVC SCH (10:33)
--- NOTE | 2017-09-02 11:26 | Nephrology Progress Note ---
Date of Encounter: 09/02/17 Time of Encounter: 09:35 - Assessment and Plan (1) Acute kidney injury superimposed on chronic kidney disease Status: Acute Nonoliguric VIRGILIO and trending better. Likely prerenal and infection / hemodynamics. 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 Hyperkalemia is improving medically and so he does not have indications for acute [employer] at this time. Would cont IVF gentle, and for his chronic LE lymphedema, I've asked the RN to apple HENRY gonzales. Continue to follow a renal conservative/protective strategy. Thank you. (2) Hyperkalemia Status: Resolved (3) Hyponatremia Status: Acute (4) Leg edema Status: Acute (5) Hypertension Status: Chronic Qualifiers: Hypertension type: essential hypertension Qualified Code(s): I10 - Essential (primary) hypertension Subjective Principal diagnosis: Elevated Troponin, cystitis, ARF on CKD Interval history: Pt was s/e and he did not affirm uremic complaints such as N/V/D confusion or worsened edema. He affirmed having chronic LE edema. Objective - Vital Signs Vital signs: Vital Signs Temp Pulse Resp BP Pulse Ox 09/02/17 07:42 98.9 F 70 16 122/66 98 09/02/17 03:16 98.8 F 70 18 105/51 99 09/01/17 23:58 99.6 F 70 18 95/62 98 09/01/17 20:36 96 09/01/17 20:22 98.6 F 70 18 110/63 96 09/01/17 14:18 98.8 F 79 16 104/68 94 Intake and Output 09/01/17 09/02/17 09/02/17 23:59 07:59 15:59 Intake Total 1843 / 1843 339 / 339 1360 / 1360 Output Total 800 / 800 300 / 300 Balance 1043 / 1043 39 / 39 1360 / 1360 Intake: IV Fluids 1725 / 1725 221 / 221 1000 / 1000 0.9 % Sodium Chloride 1,000 ML 800 / 800 1000 / 1000 @ 75 mls/hr IVC .[id number] [facility] Rx #:[id number] Heparin 25,000 UNIT/500 ML D5W 905 / 905 221 / 221 25,000 unit In 500 ml @ 12 UNIT /KG/HR 37.557 mls/hr IVC . [id number] [facility] Rx#:[id number] Merrem 1,000 MG In Water for inj. (sterile) 10 ML @ 200 mls/ hr IVP Q8H [facility] Rx#:[id number] Oral 118 / 118 118 / 118 360 / 360 Output: Urine 200 / 200 Catheter 600 / 600 300 / 300 Other: Meal Breakfast Percent of Meal Consumed 100% Stool Size Moderate Smear Stool Consistency loose soft Stool Color Brown Brown # Bowel Movements 1 # Bowel Movement Diapers 1 Weight 129.6 kg Blood Glucose* 75 65 Patient Weight 09/02/17 23:59 Weight 129.6 kg - General Appearance Exam: General appearance: well-developed, appears started age, fatigue, frail EENT: ATNC, PERRL, mucous membranes dry Neck: supple Respiratory: clear Cardiology: regular rate, regular rhythm, normal S1, normal S2, pretibial pitting edema bilaterally Gastrointestinal: normoactive bowel sounds, no tenderness, no guarding Integumentary: warm and dry Neurologic: no focal deficit, no asterixis Musculoskeletal: no erythema, no clubbing Psychiatric: mood/affect appropriate, cooperative - Lab 09/06/17 04:05 09/06/17 05:14 Most recent lab results Calcium 7.6 mg/dL (8.6-10.3) L 09/02/17 05:36 Phosphorus 4.9 mg/dL (2.7-4.5) H 09/02/17 05:36 Magnesium 2.2 mg/dL (1.6-2.6) 09/02/17 05:36 Consult Discharge Plan - Plan Referrals: Selvin Lin MD [Partnered Physician] - 09/21/17 9:30 am () Radha Jones CNP [Primary Care Provider] - (PATIENT IS GOING TO [facility], NO PCP APPOINTMENT NEEDED) Prescriptions: diazePAM [Valium] 2 mg PO BID 7 Days #14 tablet Ertapenem [INVanz] 1,000 mg IVPB DAILY #8 vial Ertapenem [INVanz] 1,000 mg IV DAILY #8 vial Gabapentin [Neurontin] 300 mg PO BID 7 Days #14 capsule Losartan [Cozaar] 25 mg PO DAILY #30 tablet
[2017-09-02] MEDS: Heparin 25,000 UNIT/500 ML D5W 25,000 UNIT/500 ML BAG IVC SCH (14:24)
--- NOTE | 2017-09-02 14:33 | Internal Med Progress Note ---
Date of Encounter: 09/02/17 Time of Encounter: 10:35 - Assessment and plan (1) Acute kidney injury superimposed on chronic kidney disease Current Visit: Yes Status: Acute Assessment and plan: Improving renal function. Creatinine 2.76 today. Nephrology consultation. Continue gentle IV hydration. (2) UTI (urinary tract infection) Current Visit: Yes Status: Acute Assessment and plan: Patient with emphysematous cystitis. Urine culture revealed Escherichia coli Previously has had infection. On ertapenem. Await sensitivity results. Urology input appreciated. Qualifiers: Urinary tract infection type: acute cystitis Hematuria presence: without hematuria Qualified Code(s): N30.00 - Acute cystitis without hematuria (3) Diabetes mellitus Current Visit: Yes Status: Chronic Assessment and plan: Patient was hypoglycemic this morning. Will decrease long-acting insulin dosage. Qualifiers: Diabetes mellitus type: type 2 Diabetes mellitus [facility] insulin use: with exterminator helper use Diabetes mellitus complication status: with neurologic complications Diabetes mellitus complication detail: with polyneuropathy Qualified Code(s): E11.42 - Type 2 diabetes mellitus with diabetic polyneuropathy; Z79.4 - intermediate (current) use of insulin; Z79.4 - intermediate ( current) use of insulin; Z79.4 - extermination inspector (current) use of insulin; Z79.4 - extermination inspector (current) use of insulin (4) Systolic heart failure Current Visit: Yes Status: Chronic Assessment and plan: Patient does have chronic lower extremity edema. Not in any respiratory distress. Lasix held due to acute kidney injury. 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 Qualifiers: Affected thrombotic vein of extremity: femoral Chronicity: chronic Qualified Code(s): I82.511 - Chronic embolism and thrombosis of right femoral vein (6) Elevated troponin Current Visit: Yes Status: Acute Assessment and plan: Cardiology consulted. Recommend left heart catheterization after medical optimization. Continue IV heparin for 48 hours. (7) Emphysematous cystitis Current Visit: Yes Status: Acute Assessment and plan: On IV antibiotics. Urology input appreciated (8) Hyperkalemia Current Visit: Yes Status: Acute (9) Hyponatremia Current Visit: Yes Status: Acute Assessment and plan: Stable. Sodium 131 (10) Knee pain Current Visit: Yes Status: Acute Assessment and plan: Controlled. Qualifiers: Chronicity: chronic Laterality: right Qualified Code(s): M25.561 - Pain in right knee; G89.29 - Other chronic pain; G89.29 - Other chronic pain (11) DVT prophylaxis Current Visit: No Status: Acute Assessment and plan: On IV heparin - Time Spent With Patient Total time spent is greater than 50% in coordination of care (as documented) at patient's floor/unit and/or counseling patient: - Subjective Interval history: Patient is awake and alert. Doing well today. Denies any chest pain. Denies any dysuria. No nausea or vomiting. No shortness of breath. - Constitutional Vitals: Temp Pulse Resp BP Pulse Ox 99.8 F H 70 18 127/66 96 09/02/17 11:44 09/02/17 11:44 09/02/17 11:44 09/02/17 11:44 09/02/17 11:44 General appearance: Present: cooperative, A&O X 3, no acute distress, answers questions appropriately - Neck Neck exam general surgery: Present: supple, trachea midline. Absent: lymphadenopathy - Respiratory Respiratory exam: Present: CTAB. Absent: accessory muscle use, rales, rhonchi, wheezes - Cardiovascular Cardiovascular exam: Present: RRR, +S1, +S2. Absent: diastolic murmur, gallop, rubs, systolic murmur - GI/Abdominal GI/Abdominal exam: Present: normal bowel sounds, soft, no peritoneal signs. Absent: distended, tenderness - Extremities Exam Extremities exam: Present: pedal edema (Bilateral lower extremity lymphedema), warm, radial pulses palpable and symmetrical. Absent: calf tenderness, cyanotic - Neurological Exam Neurological exam: Present: CN II-XII intact, oriented X3, no focal deficits. Absent: facial droop, speech deficit - Skin Skin exam: Present: dry, intact Internal Medicine: Result - Labs CBC & Chem 7: 09/02/17 05:36 09/02/17 05:36 Labs: Short CBC 09/02/17 Range/Units 05:36 WBC 9.2 (4.3-11.1) K/mcL Hgb 11.6 L D (12.9-16.9) g/dL Hct 35.5 L (37.5-50.1) % Plt Count 124 L (140-400) K/mcL Neutrophils # 7.9 (1.6-8.9) K/mcL BMP 09/02/17 05:36 Sodium 131 L Potassium 4.9 Chloride 102 Carbon Dioxide 22 L BUN 77 H Creatinine 2.76 H Glucose 72 Calcium 7.6 L - ABG Interpretation ABG results: PT/INR, D-dimer PT 14.7 Seconds (9.4-12.1) H 09/01/17 07:17 - Impressions Impressions Retroperitoneum Ultrasound 09/01/17 17:00 IMPRESSION: Bilateral renal cysts. Right cysts appears similar in size to previous exam. Left cyst appears slightly increased in size. Mildly thickened septations within the left renal cyst and question of a soft tissue nodule. Recommend further evaluation with dedicated CT or MRI of the kidneys with contrast. D/ / Teresa Tavarez MD / Teresa Tavarez MD Interpreting Provider: Teresa Tavarez MD - VTE Documentation of Mechanical Device: Graduated compression elastic hosiery Consult Discharge Plan - Plan Referrals: Radha Jones, RAILROAD PURCHASING AGENT [Primary Care Provider] -
[2017-09-02] MEDS: Acetaminophen 325 MG TABLET PO PRN (18:27)
[2017-09-03] MEDS: 0.9 % Sodium Chloride 1,000 ML IVC SCH ×2 (00:40→14:49)
[2017-09-03] MEDS: Acetaminophen 325 MG TABLET PO PRN ×2 (03:06→20:24)
[2017-09-03 05:01] LABS: Basophils % 0.1 %; Eosinophils % 0.4 %; Hemoglobin 10.9 g/dL (12.9-16.9); Immature Granulocytes % 0.8 % (0-4); Lymphocytes # 0.4 K/mcL (0.6-4.6); Lymphocytes % 4.8 %; Mean Corpuscular HGB Conc 32.1 g/dL (31.6-35.5); Mean Corpuscular Hemoglobin 31.1 pg (28.0-33.3); Mean Corpuscular Volume 97.1 fL (83.0-100.0); Mean Platelet Volume 9.8 fL (9.4-12.4); Monocytes # 1.2 K/mcL (0.0-1.3); Monocytes % 13.6 %; Neutrophils # 7.2 K/mcL (1.6-8.9); Platelet Count 133 K/mcL (140-400); Red Cell Distribution Width 13.4 % (11.5-14.5); Segmented Neutrophils % 80.3 %
[2017-09-03 05:15] LABS: Calcium 7.4 mg/dL (8.6-10.3); Potassium 4.5 mEq/L (3.5-5.1)
[2017-09-03] MEDS: Heparin 25,000 UNIT/500 ML D5W 25,000 UNIT/500 ML BAG IVC SCH (06:02)
--- NOTE | 2017-09-03 08:08 | Urology Progress Note ---
Date of Encounter: 09/03/17 Time of Encounter: 08:06 - Assessment and Plan (1) Emphysematous cystitis Current Visit: Yes Status: Acute Assessment and plan: Keep catheter in place. Patient will need follow-up with Dr. Lara in 1-2 weeks for discussion of long-term management of catheter and recurrent urinary tract infections. Patient will need at least 2 weeks of culture specific antibiotics. Call with any questions. (2) Acute kidney injury superimposed on chronic kidney disease Current Visit: Yes Status: Acute Assessment and plan: Improving serum creatinine. Nephrology on board. Progress Note Narrative: Patient seen this morning. Complaining of left upper extremity edema. Serum creatinine continues to improve. Good urine output. Objective Initial Vital Signs Temp Pulse Resp BP Pulse Ox 98.3 F 71 18 129/62 96 08/31/17 22:22 08/31/17 22:22 08/31/17 22:22 08/31/17 22:22 08/31/17 22:22 - General physical appearance Present: well developed, well nourished - Abdomen Present: soft. Absent: tender - Psychiatric Present: oriented to time, oriented to person, oriented to place - Labs 09/03/17 04:23 09/03/17 04:23 Diabetes panel 09/03/17 Range/Units 04:23 Sodium 131 L (136-145) mEq/L Potassium 4.5 (3.5-5.1) mEq/L Chloride 102 (98-107) mEq/L Carbon Dioxide 22 L (23-29) mEq/L BUN 72 H (8-23) mg/dL Creatinine 2.22 H (0.70-1.30) mg/dL Glucose 54 L (70-105) mg/dL Calcium 7.4 L (8.6-10.3) mg/dL Calcium panel 09/03/17 Range/Units 04:23 Calcium 7.4 L (8.6-10.3) mg/dL Pituitary panel 09/03/17 Range/Units 04:23 Sodium 131 L (136-145) mEq/L Potassium 4.5 (3.5-5.1) mEq/L Chloride 102 (98-107) mEq/L Carbon Dioxide 22 L (23-29) mEq/L BUN 72 H (8-23) mg/dL Creatinine 2.22 H (0.70-1.30) mg/dL Glucose 54 L (70-105) mg/dL Calcium 7.4 L (8.6-10.3) mg/dL Adrenal panel 09/03/17 Range/Units 04:23 Sodium 131 L (136-145) mEq/L Potassium 4.5 (3.5-5.1) mEq/L Chloride 102 (98-107) mEq/L Carbon Dioxide 22 L (23-29) mEq/L BUN 72 H (8-23) mg/dL Creatinine 2.22 H (0.70-1.30) mg/dL Glucose 54 L (70-105) mg/dL Calcium 7.4 L (8.6-10.3) mg/dL - VTE Documentation of Mechanical Device: Graduated compression elastic hosiery Consult Discharge Plan - Plan Referrals: Radha Jones, ICT SUPPORT ENGINEER [Primary Care Provider] -
[2017-09-03] MEDS: Insulin LISPRO 300 UNITS/3 ML VIAL SQ SCH ×4 (08:31→20:32)
[2017-09-03] MEDS: Gabapentin 300 MG CAPSULE PO SCH ×2 (08:57→20:24)
[2017-09-03] MEDS: Aspirin Enteric Coated 81 MG Tablet PO SCH (08:57)
[2017-09-03] MEDS: Cholecalciferol (D-3) 1,000 UNIT TABLET PO SCH (08:57)
--- NOTE | 2017-09-03 11:38 | Internal Med Progress Note ---
Date of Encounter: 09/03/17 Time of Encounter: 09:30 - Assessment and plan (1) Acute kidney injury superimposed on chronic kidney disease Current Visit: Yes Status: Acute Assessment and plan: improving. Creatinine 2.22 today. Nephrology following. Follow renal function closely. Patient does require left heart catheterization prior to discharge. Continue to optimize renal function (2) Elevated troponin Current Visit: Yes Status: Acute Assessment and plan: Concern for non-ST elevation NV. On IV heparin. Cardiology recommends left heart catheterization prior to discharge once medically optimized. We will stop IV heparin after 48 hours completed. Will resume eliquis (3) UTI (urinary tract infection) Current Visit: Yes Status: Acute Assessment and plan: Urine culture growing Escherichia coli with ESBL. Patient will continue ertapenem for a total of 14 days. Qualifiers: Urinary tract infection type: acute cystitis Hematuria presence: without hematuria Qualified Code(s): N30.00 - Acute cystitis without hematuria (4) Diabetes mellitus Current Visit: Yes Status: Chronic Assessment and plan: Patient hypoglycemic this morning. Stop Levemir. Continue correctional dosing. Qualifiers: Diabetes mellitus type: type 2 Diabetes mellitus terminal system operator insulin use: with terminal system operator use Diabetes mellitus complication status: with neurologic complications Diabetes mellitus complication detail: with polyneuropathy Qualified Code(s): E11.42 - Type 2 diabetes mellitus with diabetic polyneuropathy; Z79.4 - terminal gauger supervisor (current) use of insulin; Z79.4 - terminal gauger supervisor ( current) use of insulin; Z79.4 - terminal gauger supervisor (current) use of insulin; Z79.4 - terminal gauger supervisor (current) use of insulin (5) Systolic heart failure Current Visit: Yes Status: Chronic Assessment and plan: Not in acute exacerbation. Lasix held due to acute kidney injury. 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 (10) Knee pain Current Visit: Yes Status: Acute Assessment and plan: Controlled. Qualifiers: Chronicity: chronic Laterality: right Qualified Code(s): M25.561 - Pain in right knee; G89.29 - Other chronic pain; G89.29 - Other chronic pain (11) DVT prophylaxis Current Visit: No Status: Acute Assessment and plan: On IV heparin. Change to eliquis - Time Spent With Patient Total time spent is greater than 50% in coordination of care (as documented) at patient's floor/unit and/or counseling patient: - Subjective Interval history: patient is lying in bed. Denies any chest pain. No dizziness or lightheadedness. No shortness of breath. No dysuria or hematuria - Constitutional Vitals: Temp Pulse Resp BP Pulse Ox 98.7 F 79 18 119/58 95 09/03/17 11:14 09/03/17 11:14 09/03/17 11:14 09/03/17 11:14 09/03/17 11:14 General appearance: Present: cooperative, A&O X 3, no acute distress, answers questions appropriately - Eye Eye exam: Present: PERRL, conjuntiva pink, sclera anicteric - Neck Neck exam general surgery: Present: supple, trachea midline. Absent: lymphadenopathy - Respiratory Respiratory exam: Present: CTAB. Absent: accessory muscle use, rales, rhonchi, wheezes - Cardiovascular Cardiovascular exam: Present: RRR, +S1, +S2. Absent: diastolic murmur, gallop, rubs, systolic murmur - GI/Abdominal GI/Abdominal exam: Present: normal bowel sounds, soft, no peritoneal signs. Absent: distended, tenderness - Extremities Exam Extremities exam: Present: warm, radial pulses palpable and symmetrical. Absent : calf tenderness, cyanotic, pedal edema - Neurological Exam Neurological exam: Present: alert, oriented X3, no focal deficits. Absent: facial droop, speech deficit - Skin Skin exam: Present: dry, intact Internal Medicine: Result - Labs CBC & Chem 7: 09/03/17 04:23 09/03/17 04:23 Labs: Short CBC 09/03/17 Range/Units 04:23 WBC 9.0 (4.3-11.1) K/mcL Hgb 10.9 L (12.9-16.9) g/dL Hct 34.0 L (37.5-50.1) % Plt Count 133 L (140-400) K/mcL Neutrophils # 7.2 (1.6-8.9) K/mcL BMP 09/03/17 04:23 Sodium 131 L Potassium 4.5 Chloride 102 Carbon Dioxide 22 L BUN 72 H Creatinine 2.22 H Glucose 54 L Calcium 7.4 L - ABG Interpretation ABG results: PT/INR, D-dimer PT 14.7 Seconds (9.4-12.1) H 09/01/17 07:17 - VTE Documentation of Mechanical Device: Graduated compression elastic hosiery Consult Discharge Plan - Plan Referrals: Radha Jones, FARMWORKER FRUIT [Primary Care Provider] -
[2017-09-03] MEDS: Apixaban 5 MG TABLET PO SCH (20:30)
[2017-09-04] MEDS: Acetaminophen 325 MG TABLET PO PRN (01:21)
[2017-09-04] MEDS: 0.9 % Sodium Chloride 1,000 ML IVC SCH (05:14)
[2017-09-04 05:53] LABS: Basophils % 0.2 %; Eosinophils # 0.1 K/mcL (0.0-0.6); Eosinophils % 0.9 %; Hematocrit 34.4 % (37.5-50.1); Hemoglobin 11.4 g/dL (12.9-16.9); Immature Granulocytes % 0.8 % (0-4); Lymphocytes # 0.5 K/mcL (0.6-4.6); Lymphocytes % 5.7 %; Mean Corpuscular HGB Conc 33.1 g/dL (31.6-35.5); Mean Corpuscular Hemoglobin 31.6 pg (28.0-33.3); Mean Corpuscular Volume 95.3 fL (83.0-100.0); Mean Platelet Volume 9.8 fL (9.4-12.4); Monocytes # 0.8 K/mcL (0.0-1.3); Monocytes % 9.7 %; Neutrophils # 7.2 K/mcL (1.6-8.9); Platelet Count 183 K/mcL (140-400); Red Blood Count 3.61 M/mcL (4.19-5.50); Red Cell Distribution Width 13.4 % (11.5-14.5); Segmented Neutrophils % 82.7 %
[2017-09-04 06:08] LABS: Calcium 7.8 mg/dL (8.6-10.3); Potassium 4.6 mEq/L (3.5-5.1)
[2017-09-04] MEDS: Insulin LISPRO 300 UNITS/3 ML VIAL SQ SCH ×4 (08:24→21:27)
[2017-09-04] MEDS: Apixaban 5 MG TABLET PO SCH ×2 (08:24→21:26)
[2017-09-04] MEDS: Gabapentin 300 MG CAPSULE PO SCH ×2 (08:25→21:27)
[2017-09-04] MEDS: Cholecalciferol (D-3) 1,000 UNIT TABLET PO SCH (08:25)
[2017-09-04] MEDS: Aspirin Enteric Coated 81 MG Tablet PO SCH (08:25)
--- NOTE | 2017-09-04 10:57 | Internal Med Progress Note ---
Date of Encounter: 09/04/17 Time of Encounter: 09:45 - Assessment and plan (1) Acute kidney injury superimposed on chronic kidney disease Current Visit: Yes Status: Acute Assessment and plan: Improving. Creatinine continues to trend down. Nephrology following. Creatinine 1.75 today. Continue to treat underlying cystitis. On IV hydration. (2) Elevated troponin Current Visit: Yes Status: Acute Assessment and plan: Concern for possible non-ST elevation VT. Cardiology recommends left heart catheterization prior to discharge after medical optimization. Will keep nothing by mouth after midnight in case patient would be stable for left heart catheterization tomorrow. (3) UTI (urinary tract infection) Current Visit: Yes Status: Acute Assessment and plan: With ESBL Escherichia coli. Will place EPIV. Plan for 14 day course of IV ertapenem. Qualifiers: Urinary tract infection type: acute cystitis Hematuria presence: without hematuria Qualified Code(s): N30.00 - Acute cystitis without hematuria (4) Diabetes mellitus Current Visit: Yes Status: Chronic Assessment and plan: Well-controlled. Continue current insulin regimen. Qualifiers: Diabetes mellitus type: type 2 Diabetes mellitus correction insulin use: with correction use Diabetes mellitus complication status: with neurologic complications Diabetes mellitus complication detail: with polyneuropathy Qualified Code(s): E11.42 - Type 2 diabetes mellitus with diabetic polyneuropathy; Z79.4 - prison (current) use of insulin; Z79.4 - prison ( current) use of insulin; Z79.4 - termite exterminator helper (current) use of insulin; Z79.4 - prison (current) use of insulin (5) Systolic heart failure Current Visit: Yes Status: Chronic Assessment and plan: Not in acute exacerbation. Currently Lasix has been held due to acute kidney injury. 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 Urology input appreciated. (8) Hyperkalemia Current Visit: Yes Status: Resolved (9) Hyponatremia Current Visit: Yes Status: Acute Assessment and plan: Sodium 132 today. Continue normal saline infusion per nephrology recommendations. (10) Knee pain Current Visit: Yes Status: Chronic Assessment and plan: Well-controlled. Qualifiers: Chronicity: chronic Laterality: right Qualified Code(s): M25.561 - Pain in right knee; G89.29 - Other chronic pain; G89.29 - Other chronic pain (11) DVT prophylaxis Current Visit: No Status: Acute Assessment and plan: On Eliquis (12) Subdural hygroma Current Visit: Yes Status: Suspected Assessment and plan: Patient CT scan of the head showed possible hygroma or chronic subdural hematoma. We will discuss with neurology. 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 As such recommended she repeat CT scan of the head. If no increase in size, neurology recommends no further evaluation. Patient should be okay to undergo left heart catheterization at that point. - Time Spent With Patient Total time spent is greater than 50% in coordination of care (as documented) at patient's floor/unit and/or counseling patient: - Subjective Interval history: Patient is doing well. Denies any new complaints at this time. No chest pain or shortness of breath. Continues to have good urine output. No dizziness or lightheadedness. Did have a headache last night which has now resolved. No vision changes. - Constitutional Vitals: Temp Pulse Resp BP Pulse Ox 98.1 F 73 19 119/73 93 09/04/17 08:25 09/04/17 08:25 09/04/17 08:25 09/04/17 08:25 09/04/17 08:25 General appearance: Present: cooperative, A&O X 3, no acute distress, answers questions appropriately - Neck Neck exam general surgery: Present: supple, trachea midline. Absent: lymphadenopathy - Respiratory Respiratory exam: Present: CTAB. Absent: accessory muscle use, rales, rhonchi, wheezes - Cardiovascular Cardiovascular exam: Present: RRR, +S1, +S2. Absent: diastolic murmur, gallop, rubs, systolic murmur - GI/Abdominal GI/Abdominal exam: Present: normal bowel sounds, soft, no peritoneal signs. Absent: distended, tenderness - Extremities Exam Extremities exam: Present: pedal edema (Chronic lymphedema), warm, radial pulses palpable and symmetrical. Absent: calf tenderness, cyanotic - Neurological Exam Neurological exam: Present: alert, CN II-XII intact, oriented X3, no focal deficits. Absent: facial droop, speech deficit - Skin Skin exam: Present: dry, intact Internal Medicine: Result - Labs CBC & Chem 7: 09/04/17 04:29 09/04/17 04:29 Labs: Short CBC 09/04/17 Range/Units 04:29 WBC 8.7 (4.3-11.1) K/mcL Hgb 11.4 L (12.9-16.9) g/dL Hct 34.4 L (37.5-50.1) % Plt Count 183 (140-400) K/mcL Neutrophils # 7.2 (1.6-8.9) K/mcL BMP 09/04/17 04:29 Sodium 132 L Potassium 4.6 Chloride 103 Carbon Dioxide 21 L BUN 65 H Creatinine 1.75 H Glucose 136 H Calcium 7.8 L - ABG Interpretation ABG results: PT/INR, D-dimer PT 14.7 Seconds (9.4-12.1) H 09/01/17 07:17 - VTE Documentation of Mechanical Device: Graduated compression elastic hosiery Consult Discharge Plan - Plan Referrals: Radha Jones, [place] [place] [Primary Care Provider] -
[2017-09-04] MEDS ORDERED: Lidocaine -MPF 1% 5 ML AMPUL INFILT ONE (11:02)
--- NOTE | 2017-09-04 12:49 | Nephrology Progress Note ---
Date of Encounter: 09/04/17 Time of Encounter: 11:40 - Assessment and Plan (1) Acute kidney injury superimposed on chronic kidney disease Status: Acute VIRGILIO is improving nicely, and he will not need LACING CUTTER. Likely prerenal and infection / hemodynamics. 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 Continue to follow a renal conservative/protective strategy, and if the pt were able to await a [facility] longer so as to allow for more of a robust renal recovery, this would be ideal for his renal function. Doing well and now back to his baseline, so will sign-off. Please have him follow up with Dr. Hampton, who I believe is his primary map drafter, in about 3- 6 weeks. Thank you. (2) Hyperkalemia Status: Resolved (3) Hyponatremia Status: Acute (4) Leg edema Status: Acute (5) Hypertension Status: Chronic Qualifiers: Hypertension type: essential hypertension Qualified Code(s): I10 - Essential (primary) hypertension Subjective Principal diagnosis: Elevated Troponin, cystitis, ARF on CKD Interval history: Pt was s/e, and he did not affirm uremic complaints such as N/V/D or confusion. Swelling trending better he reported. Objective - Vital Signs Vital signs: Vital Signs Temp Pulse Resp BP Pulse Ox 09/04/17 11:20 98.3 F 70 18 113/69 97 09/04/17 08:25 98.1 F 73 19 119/73 93 09/04/17 07:20 98.1 F 73 19 119/73 93 09/04/17 03:55 98.3 F 69 22 108/61 95 09/03/17 22:58 98.8 F 70 18 120/67 94 09/03/17 20:11 101.6 F H 70 22 121/68 95 09/03/17 15:40 98.4 F 61 18 112/54 95 Intake and Output 09/03/17 09/04/17 09/04/17 23:59 07:59 15:59 Intake Total 580 / 580 1000 / 1000 200 / 200 Output Total 950 / 950 1450 / 1450 0 / 0 Balance -370 / -370 -450 / -450 200 / 200 Intake: IV Fluids 100 / 100 1000 / 1000 0.9 % Sodium Chloride 1,000 ML 1000 / 1000 @ 75 mls/hr IVC .[id number] PAWAN Rx #:[id number] INVanz 500 MG In 0.9 % Sodium 100 / 100 Chloride 100 ML @ 200 mls/hr IVPB Q24H [facility], [facility] Rx#:[id number] Oral 480 / 480 200 / 200 Output: Catheter 950 / 950 1450 / 1450 0 / 0 Other: Meal Dinner Breakfast Percent of Meal Consumed 75% 75% Stool Size Small Stool Consistency loose Stool Color Brown # Bowel Movement Diapers 1 Weight 131.1 kg Blood Glucose* 156 124 207 Patient Weight 09/04/17 23:59 Weight 131.1 kg - General Appearance Exam: General appearance: well-developed, appears started age, fatigue, frail EENT: ATNC, PERRL, mucous membranes dry Neck: supple Respiratory: clear Cardiology: regular rate, regular rhythm, normal S1, normal S2, decreasing pretibial pitting edema bilaterally Gastrointestinal: normoactive bowel sounds, no tenderness, no guarding Integumentary: warm and dry Neurologic: no focal deficit, no asterixis Musculoskeletal: no erythema, no clubbing Psychiatric: mood/affect appropriate, cooperative - Lab 09/06/17 04:05 09/06/17 05:14 Most recent lab results Calcium 7.8 mg/dL (8.6-10.3) L 09/04/17 04:29 Phosphorus 4.9 mg/dL (2.7-4.5) H 09/02/17 05:36 Magnesium 2.2 mg/dL (1.6-2.6) 09/02/17 05:36 - VTE Documentation of Mechanical Device: Graduated compression elastic hosiery Consult Discharge Plan - Plan Referrals: Selvin Lin MD [Partnered Physician] - 09/21/17 9:30 am () Radha Jones CNP [Primary Care Provider] - (PATIENT IS GOING TO [facility], NO PCP APPOINTMENT NEEDED) Prescriptions: diazePAM [Valium] 2 mg PO BID 7 Days #14 tablet Ertapenem [INVanz] 1,000 mg IVPB DAILY #8 vial Ertapenem [INVanz] 1,000 mg IV DAILY #8 vial Gabapentin [Neurontin] 300 mg PO BID 7 Days #14 capsule Losartan [Cozaar] 25 mg PO DAILY #30 tablet
[2017-09-05 05:25] LABS: Basophils % 0.2 %; Eosinophils % 0.4 %; Hematocrit 35.6 % (37.5-50.1); Hemoglobin 11.7 g/dL (12.9-16.9); Immature Granulocytes % 0.8 % (0-4); Lymphocytes # 0.4 K/mcL (0.6-4.6); Lymphocytes % 4.2 %; Mean Corpuscular HGB Conc 32.9 g/dL (31.6-35.5); Mean Corpuscular Hemoglobin 31.3 pg (28.0-33.3); Mean Corpuscular Volume 95.2 fL (83.0-100.0); Mean Platelet Volume 9.7 fL (9.4-12.4); Monocytes # 0.9 K/mcL (0.0-1.3); Monocytes % 9.1 %; Neutrophils # 8.6 K/mcL (1.6-8.9); Platelet Count 212 K/mcL (140-400); Red Blood Count 3.74 M/mcL (4.19-5.50); Red Cell Distribution Width 13.5 % (11.5-14.5); Segmented Neutrophils % 85.3 %
[2017-09-05 05:34] LABS: Calcium 7.8 mg/dL (8.6-10.3); Potassium 5.1 mEq/L (3.5-5.1)
[2017-09-05] MEDS: Insulin LISPRO 300 UNITS/3 ML VIAL SQ SCH ×4 (08:20→20:51)
[2017-09-05] MEDS: Aspirin Enteric Coated 81 MG Tablet PO SCH (08:21)
[2017-09-05] MEDS: Gabapentin 300 MG CAPSULE PO SCH ×2 (08:21→20:41)
[2017-09-05] MEDS: Cholecalciferol (D-3) 1,000 UNIT TABLET PO SCH (08:21)
[2017-09-05] MEDS: Apixaban 5 MG TABLET PO SCH ×2 (08:21→20:42)
--- NOTE | 2017-09-05 09:05 | Internal Med Progress Note ---
Date of Encounter: 09/05/17 Time of Encounter: 09:03 - Assessment and plan (1) Acute kidney injury superimposed on chronic kidney disease Current Visit: Yes Status: Acute Assessment and plan: Acute on chronic renal failure, history of chronic kidney disease of stage III Improving. Creatinine continues to trend down. Nephrology following. On IV hydration. Hold Lasix, hold losartan, unclear why is the patient on lisinopril as well (2) Systolic heart failure Current Visit: Yes Status: Chronic Assessment and plan: Not in acute exacerbation. Currently Lasix has been held due to acute kidney injury. 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 EPIV. Plan for 14 day course of ertapenem. Qualifiers: Urinary tract infection type: acute cystitis Hematuria presence: without hematuria Qualified Code(s): N30.00 - Acute cystitis without hematuria (5) Elevated troponin Current Visit: Yes Status: Acute Assessment and plan: Concern for possible non-ST elevation NM. Cardiology recommended left heart catheterization prior to discharge after medical optimization. New EF 45 % on June ( refused cath back then) Cardiology recommendations appreciated ASA Metoprolol, Lipitor On Eliquis due to history of right lower extremity DVT (6) Emphysematous cystitis Current Visit: Yes Status: Acute Assessment and plan: Sepsis secondary to Acute emphysematous cystitis, E coli ESBL Fever 101.6 on September 03, WBC 13 Being treated with IV ertapenem day 5 ( received 1 day of merrem). Urology following, continue total of 14 days Bethea In (7) Hyperkalemia Current Visit: Yes Status: Resolved Assessment and plan: Resolved after receiving Kayexalate (8) Hyponatremia Current Visit: Yes Status: Acute Assessment and plan: . Stable (9) Subdural hygroma Current Visit: Yes Status: Suspected Assessment and plan: Patient CT scan of the head showed possible hygroma or chronic subdural hematoma , very small possibly in the right frontal lobe. 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 Repeat CT scan of the head showed no change. (10) Diabetes mellitus Current Visit: Yes Status: Chronic Assessment and plan: Continue current insulin regimen. Hold glimepiride Uses up to 42 units of Lantus at home, may resume when able to take diet Qualifiers: Diabetes mellitus type: type 2 Diabetes mellitus residential insulin use: with vermin exterminator use Diabetes mellitus complication status: with neurologic complications Diabetes mellitus complication detail: with polyneuropathy Qualified Code(s): E11.42 - Type 2 diabetes mellitus with diabetic polyneuropathy; Z79.4 - snf (current) use of insulin; Z79.4 - vermin exterminator ( current) use of insulin; Z79.4 - vermin exterminator (current) use of insulin; Z79.4 - snf (current) use of insulin - Time Spent With Patient Total time spent is greater than 50% in coordination of care (as documented) at patient's floor/unit and/or counseling patient: - Subjective Interval history: Denies any chest pain, no abdominal pain, no diarrhea, no fevers, no shortness of breath or headaches - Constitutional Vitals: Temp Pulse Resp BP Pulse Ox 98.8 F 72 19 131/60 97 09/05/17 07:06 09/05/17 07:06 09/05/17 07:06 09/05/17 07:06 09/05/17 07:06 General appearance: Present: cooperative, A&O X 3, no acute distress, answers questions appropriately - Head Head exam: Present: atraumatic, normocephalic - Eye Eye exam: Present: PERRL, conjuntiva pink, sclera anicteric Pupils: Present: PERRL - Neck Neck exam general surgery: Present: supple, trachea midline. Absent: lymphadenopathy - Respiratory Respiratory exam: Present: decreased breath sounds, CTAB. Absent: accessory muscle use, rales, rhonchi, wheezes - Cardiovascular Cardiovascular exam: Present: RRR, +S1, +S2. Absent: diastolic murmur, gallop, rubs, systolic murmur - GI/Abdominal GI/Abdominal exam: Present: normal bowel sounds, soft, no peritoneal signs. Absent: distended, tenderness - Extremities Exam Extremities exam: Present: pedal edema, warm, radial pulses palpable and symmetrical. Absent: calf tenderness, cyanotic Additional comments: Beteha catheter in place Bilateral +2 pitting edema in both lower extremities with chronic venous stasis changes - Neurological Exam Neurological exam: Present: CN II-XII intact, oriented X3, no focal deficits. Absent: pronater drift, facial droop, speech deficit - Skin Skin exam: Present: dry, intact Internal Medicine: Result - Labs CBC & Chem 7: 09/05/17 04:06 09/05/17 04:06 Labs: Short CBC 09/05/17 Range/Units 04:06 WBC 10.0 (4.3-11.1) K/mcL Hgb 11.7 L (12.9-16.9) g/dL Hct 35.6 L (37.5-50.1) % Plt Count 212 (140-400) K/mcL Neutrophils # 8.6 (1.6-8.9) K/mcL BMP 09/05/17 04:06 Sodium 133 L Potassium 5.1 Chloride 103 Carbon Dioxide 19 L BUN 62 H Creatinine 1.82 H Glucose 190 H Calcium 7.8 L - ABG Interpretation ABG results: PT/INR, D-dimer PT 14.7 Seconds (9.4-12.1) H 09/01/17 07:17 - Impressions Impressions Head CT 09/04/17 11:00 IMPRESSION: No acute intracranial abnormality. D/ / Torie Angelo Cha, MD / Torie Angelo Cha, MD Interpreting Provider: Torie Angelo Cha, MD - VTE Documentation of Mechanical Device: Graduated compression elastic hosiery Consult Discharge Plan - Plan Referrals: Radha Jones CNP [Primary Care Provider] - 09/12/17 10:00 am
[2017-09-05] MEDS: 0.9 % Sodium Chloride 1,000 ML IVC SCH (10:02)
--- NOTE | 2017-09-05 10:41 | Cardiology Progress Note ---
Date of Encounter: 09/05/17 Time of Encounter: 10:40 Assessment and Plan (1) Acute kidney injury superimposed on chronic kidney disease Current Visit: Yes Status: Acute Improving, appreciate nephrology recommendations. Given nephrotoxicity of contrast, will plan to schedule this as outpatient next week after he has had time for his kidneys to be recovered from latest insult. (2) Systolic heart failure Current Visit: Yes Status: Chronic Plan for [facility] as outpatient next Monday to allow for renal cooloff period per nephro. No angina or decompensated CHF at this time. A/R/B discussed with him including 1% chance of OH//CVA/CABG/VONDA/bleeding. Qualifiers: Heart failure chronicity: chronic Qualified Code(s): I50.22 - Chronic systolic (congestive) heart failure Discussion w patient/family: The assessment and plan as outlined above was discussed with the patient and/or family members who expressed understanding and agreement. All questions were answered. Thank you for involving us in the care of your patient. Please call with any questions. Subjective Principal diagnosis: Elevated Troponin, cystitis, ARF on CKD Interval history: Patient denies chest/jaw/arm discomfort or dyspnea. He states his legs feel weak and has only been able to sit up on side of bed but unable to ambulate. Objective Vital Signs, Last 4 Hours Temp Pulse Resp BP Pulse Ox 09/05/17 07:06 98.8 F 72 19 131/60 97 General: Conversant HEENT: Atraumatic Neck: No JVD Lungs: Normal Breath Sounds Neuro: Alert and responsive Abdomen: Soft Skin: No rashes noted on visualized skin Musculoskeletal: No Chest Wall Tenderness Extremities: Other (2+ edema BL) Results 09/05/17 04:06 09/05/17 04:06 Lab Results 09/05/17 09/05/17 04:06 04:06 WBC 10.0 Hgb 11.7 L Hct 35.6 L Plt Count 212 Sodium 133 L Potassium 5.1 Chloride 103 Carbon Dioxide 19 L BUN 62 H Creatinine 1.82 H Glucose 190 H Calcium 7.8 L - VTE Documentation of Mechanical Device: Graduated compression elastic hosiery Consult Discharge Plan - Plan Referrals: Radha Jones, [employer] [Primary Care Provider] - 09/12/17 10:00 am
[2017-09-06] MEDS: Acetaminophen 325 MG TABLET PO PRN (03:33)
[2017-09-06 04:20] LABS: Hemoglobin 11.6 g/dL (12.9-16.9); Mean Corpuscular HGB Conc 33.1 g/dL (31.6-35.5); Mean Corpuscular Hemoglobin 31.9 pg (28.0-33.3); Mean Corpuscular Volume 96.2 fL (83.0-100.0); Mean Platelet Volume 9.6 fL (9.4-12.4); Platelet Count 196 K/mcL (140-400); Red Blood Count 3.64 M/mcL (4.19-5.50); Red Cell Distribution Width 13.4 % (11.5-14.5)
[2017-09-06 05:47] LABS: Calcium 7.8 mg/dL (8.6-10.3); Potassium 5.1 mEq/L (3.5-5.1)
[2017-09-06] MEDS: 0.9 % Sodium Chloride 1,000 ML IVC SCH (06:23)
[2017-09-06] MEDS: Insulin LISPRO 300 UNITS/3 ML VIAL SQ SCH ×4 (08:05→20:52)
[2017-09-06] MEDS: Apixaban 5 MG TABLET PO SCH ×2 (08:05→21:01)
[2017-09-06] MEDS: Gabapentin 300 MG CAPSULE PO SCH ×2 (08:05→21:00)
[2017-09-06] MEDS: Cholecalciferol (D-3) 1,000 UNIT TABLET PO SCH (08:06)
[2017-09-06] MEDS: Aspirin Enteric Coated 81 MG Tablet PO SCH (08:06)
--- NOTE | 2017-09-06 13:13 | Discharge Summary ---
- NOTES TO OUTPATIENT PROVIDER Notes to Outpatient Provider: Follow-up with primary care physician. Follow-up with cardiology within the next 7 days, follow-up with urology within the next 7 days. Keep Bethea catheter in until urology follow-up, complete a total of 14 days of ertapenem. Decrease dose of losartan down to 25 mg daily, stop lisinopril. Continue Lasix. Date of Encounter: 09/06/17 Time of Encounter: 13:09 - Discharge Diagnosis (1) Emphysematous cystitis Priority: Primary Status: Acute Assessment and Plan: Sepsis secondary to Acute emphysematous cystitis, E coli ESBL Fever 101.6 on September 03, WBC 13 Being treated with IV ertapenem day 6 ( received 1 day of merrem). Urology following, continue total of 14 days Bethea In (2) UTI (urinary tract infection) Priority: Primary Status: Acute Assessment and Plan: With ESBL Escherichia coli. EPIV. Plan for 14 day course of ertapenem. Qualifiers: Urinary tract infection type: acute cystitis Hematuria presence: without hematuria Qualified Code(s): N30.00 - Acute cystitis without hematuria (3) Acute kidney injury superimposed on chronic kidney disease Priority: Primary Status: Acute Assessment and Plan: Acute on chronic renal failure, history of chronic kidney disease of stage III l (4) Systolic heart failure Priority: Secondary Status: Chronic Assessment and Plan: Not in acute exacerbation. 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 Cardiology recommended left heart catheterization prior to discharge after medical optimization. New EF 45 % on June ( refused cath back then) Cardiology recommendations appreciated ASA Metoprolol, Lipitor On Eliquis due to history of right lower extremity DVT (7) Hyperkalemia Priority: Secondary Status: Resolved (8) Hyponatremia Priority: Secondary Status: Acute (9) Subdural hygroma Priority: Secondary Status: Suspected Assessment and Plan: Patient CT scan of the head showed possible hygroma or chronic subdural hematoma , very small possibly in the right frontal lobe. 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 Repeat CT scan of the head showed no change. (10) Diabetes mellitus Priority: Secondary Status: Chronic Qualifiers: Diabetes mellitus type: type 2 Diabetes mellitus manager terminal insulin use: with fdc use Diabetes mellitus complication status: with neurologic complications Diabetes mellitus complication detail: with polyneuropathy Qualified Code(s): E11.42 - Type 2 diabetes mellitus with diabetic polyneuropathy; Z79.4 - skilled nursing (current) use of insulin; Z79.4 - skilled nursing ( current) use of insulin; Z79.4 - skilled nursing (current) use of insulin; Z79.4 - intermediate school teacher (current) use of insulin Hospital course: Mr. Vázquez is a 86 year old male with PMH of pacemaker, HTN, DM, CKD stage 3, h/o DVT on Eliquis, Alzheimer's, and recent diagnosis of CHF with EF of 45%, cardiology saw him in June and [facility] recommendations were discussed but not done at that time as patient elected to follow up in the outpatient setting. He came in this time with complaints of right lower extremity weakness. The patient was generally weak actually for about 10 days or so feeling "ill" per the ED. Not been feeling well for about 2 days prior to admission.. He was unable to get up from the commode due to weakness. . Work up in the ED revealed elevated creatinine 3.17, Na 129, K 5.6, Trops .09 ( increased up to 0.41), WBC count and platelets above baseline. EKG was vent paced with no acute ischemic changes. CT abd/pelvis showed emphsematous cystitis and UA was consistent with a UTI. Urology was called. The CT also mentioned enlarged medial left groin lymph node 3.45 cm. He was given meropenem for history of ESBL and started on IVF in the ED. Was continued on Ertapenem. Cardiology evaluated the patient and recommended a [facility] next week as outpatient after renal function improves. Creatinined trended down. Nephrology was consulted. Was kept on IV hydration. Lasix, losartan and lisinopril were held, unclear why is the patient on lisinopril. Stable to be discharged - Time Spent with Patient Total time spent providing and/or coordinating discharge services: Greater than 30 minutes (40 min) - Discharge Medications Prescriptions: diazePAM [Valium] 2 mg PO BID 7 Days #14 tablet Ertapenem [INVanz] 1,000 mg IVPB DAILY #8 vial Gabapentin [Neurontin] 300 mg PO BID 7 Days #14 capsule Losartan [Cozaar] 25 mg PO DAILY #30 tablet Home Medications: Tamsulosin [Flomax] 0.4 mg PO DAILY capsule 08/06/15 [Rx] Atorvastatin [Lipitor] 40 mg PO DAILY 09/07/15 [History] Insulin Glargine,Hum.rec.anlog [Lantus Solostar] 42 unit SQ QAM 09/07/15 [ History] Insulin LISPRO [HumaLOG] 0 - 10 units SQ QPM 09/07/15 [History] Metoprolol [Lopressor] 12.5 mg PO BID 09/07/15 [History] Glimepiride [Amaryl] 4 mg PO DAILY 04/18/17 [History] Sitagliptin Phosphate [Januvia] 50 mg PO Q48H 04/18/17 [History] Cholecalciferol (D-3) [Vitamin D] 2,000 unit PO DAILY 05/09/17 [History] Furosemide [Lasix] 40 mg PO DAILY 07/27/17 [History] Apixaban [Eliquis] 2.5 mg PO BID #60 tablet 07/30/17 [Rx] Aspirin Enteric Coated [Aspirin EC] 81 mg PO DAILY #30 tablet. 07/30/17 [Rx] Ondansetron [Zofran ODT] 8 mg PO TID PRN 09/01/17 [History] PARoxetine HCl [Paroxetine HCl] 10 mg PO QAM 09/01/17 [History] Ertapenem [INVanz] 1,000 mg IVPB DAILY #8 vial 09/06/17 [Rx] Gabapentin [Neurontin] 300 mg PO BID 7 Days #14 capsule 09/06/17 [Rx] Losartan [Cozaar] 25 mg PO DAILY #30 tablet 09/06/17 [Rx] diazePAM [Valium] 2 mg PO BID 7 Days #14 tablet 09/06/17 [Rx] Allergies/Adverse Reactions: 3 Allergy/AdvReac Type Severity Reaction Status Date / Time No Known Allergies Allergy Verified 08/05/17 18:50 Date of admission: 09/01/17 02:48 Primary care physician: Radha Jones CNP Consults: 09/01/17 03:09 Consult to Gis Scientist [CONS] Routine Reason for SW Consult: [facility] 09/01/17 07:01 Consult to Cardiology [CONS] Routine Comment: Consulting Provider: Cardiology [facility] Reason for Consult: elevated trops Call Completed: No 09/01/17 16:54 Consult to Urology [CONS] Routine Consulting Provider: Urology [facility] Reason for Consult: Hemorrhagic cystitis Call Completed: Yes 09/04/17 11:02 Consult to Invasive Line Access Team [CONS] Routine Reason for Consult: Picc Line Insertion Line Type: EPIV - Constitutional Vitals: Temp Pulse Resp BP Pulse Ox 98.8 F 73 18 125/67 95 09/06/17 10:57 09/06/17 10:57 09/06/17 10:57 09/06/17 10:57 09/06/17 10:57 General appearance: Present: cooperative, A&O X 3, no acute distress, answers questions appropriately Exam: - Head Head exam: Present: atraumatic, normocephalic - Eye Eye exam: Present: PERRL, conjuntiva pink, sclera anicteric Pupils: Present: PERRL - Neck Neck exam general surgery: Present: supple, trachea midline. Absent: lymphadenopathy - Respiratory Respiratory exam: Present: decreased breath sounds, CTAB. Absent: accessory muscle use, rales, rhonchi, wheezes - Cardiovascular Cardiovascular exam: Present: RRR, +S1, +S2. Absent: diastolic murmur, gallop, rubs, systolic murmur - GI/Abdominal GI/Abdominal exam: Present: normal bowel sounds, soft, no peritoneal signs. Absent: distended, tenderness - Extremities Exam Extremities exam: Present: pedal edema, warm, radial pulses palpable and symmetrical. Absent: calf tenderness, cyanotic Additional comments: Bethea catheter Bilateral +2 pitting edema in both lower extremities with chronic venous stasis changes - Patient Status Disposition: Transfer SNF Condition: Fair Overall status at discharge: patient is progressing back to baseline - Discharge Instructions Follow Up With: Radha Jones CNP [Primary Care Provider] - (PATIENT IS GOING TO [facility], NO PCP APPOINTMENT NEEDED) - Diet and Activity Activity: increase activity as tolerated Diet: low fat, low cholesterol - VTE Documentation of Mechanical Device: Graduated compression elastic hosiery
--- NOTE | 2017-09-06 13:29 | Physician Discharge Referral ---
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 Status: Chronic (6) Elevated troponin Status: Acute (7) Hyperkalemia Status: Resolved (8) Hyponatremia Status: Acute (9) Subdural hygroma Status: Suspected (10) Diabetes mellitus Status: Chronic - Transfer Medications Prescriptions: diazePAM [Valium] 2 mg PO BID 7 Days #14 tablet Ertapenem [INVanz] 1,000 mg IVPB DAILY #8 vial Gabapentin [Neurontin] 300 mg PO BID 7 Days #14 capsule Losartan [Cozaar] 25 mg PO DAILY #30 tablet Home Medications: Tamsulosin [Flomax] 0.4 mg PO DAILY capsule 08/06/15 [Rx] Atorvastatin [Lipitor] 40 mg PO DAILY 09/07/15 [History] Insulin Glargine,Hum.rec.anlog [Lantus Solostar] 42 unit SQ QAM 09/07/15 [ History] Insulin LISPRO [HumaLOG] 0 - 10 units SQ QPM 09/07/15 [History] Metoprolol [Lopressor] 12.5 mg PO BID 09/07/15 [History] Glimepiride [Amaryl] 4 mg PO DAILY 04/18/17 [History] Sitagliptin Phosphate [Januvia] 50 mg PO Q48H 04/18/17 [History] Cholecalciferol (D-3) [Vitamin D] 2,000 unit PO DAILY 05/09/17 [History] Furosemide [Lasix] 40 mg PO DAILY 07/27/17 [History] Apixaban [Eliquis] 2.5 mg PO BID #60 tablet 07/30/17 [Rx] Aspirin Enteric Coated [Aspirin EC] 81 mg PO DAILY #30 tablet. 07/30/17 [Rx] Ondansetron [Zofran ODT] 8 mg PO TID PRN 09/01/17 [History] PARoxetine HCl [Paroxetine HCl] 10 mg PO QAM 09/01/17 [History] Ertapenem [INVanz] 1,000 mg IVPB DAILY #8 vial 09/06/17 [Rx] Gabapentin [Neurontin] 300 mg PO BID 7 Days #14 capsule 09/06/17 [Rx] Losartan [Cozaar] 25 mg PO DAILY #30 tablet 09/06/17 [Rx] diazePAM [Valium] 2 mg PO BID 7 Days #14 tablet 09/06/17 [Rx] Allergies/Adverse Reactions: 3 Allergy/AdvReac Type Severity Reaction Status Date / Time No Known Allergies Allergy Verified 08/05/17 18:50 - Respiratory Orders Smoking Cessation: Smoking cessation has been advised. For more information, call the [place] Tobacco Quit Line at 2-344-VLFY-NOW. - Advance Directives Code Status: Full Code - Rehabiliation Orders Other: Follow-up with primary care physician. Follow-up with cardiology within the next 7 days, follow-up with urology within the next 7 days. Keep Bethea catheter in until urology follow-up, complete a total of 14 days of ertapenem. Decrease dose of losartan down to 25 mg daily, stop lisinopril. Continue Lasix. - Diet Orders No Added Salt (MICHAEL) CERTIFICATION: I certify that the transfer of the above named patient to an Extended Care Facility is necessary for the continuing treatment of the diagnosis listed. The above information is true and accurate reflection of patient's current condition. Confidential - Redisclosure prohibited without a patient's written consent.
[2017-09-06] MEDS: Furosemide 40 MG TABLET PO SCH (14:39)
[2017-09-07] MEDS: Insulin LISPRO 300 UNITS/3 ML VIAL SQ SCH ×2 (08:15→13:09)
[2017-09-07] MEDS: Gabapentin 300 MG CAPSULE PO SCH (08:16)
[2017-09-07] MEDS: Apixaban 5 MG TABLET PO SCH (08:16)
[2017-09-07] MEDS: Cholecalciferol (D-3) 1,000 UNIT TABLET PO SCH (08:16)
[2017-09-07] MEDS: Furosemide 40 MG TABLET PO SCH (08:16)
[2017-09-07] MEDS: Aspirin Enteric Coated 81 MG Tablet PO SCH (08:17)
--- NOTE | 2017-09-07 12:15 | Internal Med Progress Note ---
Date of Encounter: 09/07/17 Time of Encounter: 12:13 - Assessment and plan (1) Emphysematous cystitis Current Visit: Yes Status: Acute Assessment and plan: Sepsis secondary to Acute emphysematous cystitis, E coli ESBL Fever 101.6 on September 03, WBC 13 Being treated with IV ertapenem day 8 ( received 1 day of merrem). Urology following, continue total of 14 days Bethea In until follow up with urology Discharge to F if stable (2) UTI (urinary tract infection) Current Visit: Yes Status: Acute Assessment and plan: With ESBL Escherichia coli. EPIV. Plan for 14 day course of ertapenem. Qualifiers: Urinary tract infection type: acute cystitis Hematuria presence: without hematuria Qualified Code(s): N30.00 - Acute cystitis without hematuria (3) Acute kidney injury superimposed on chronic kidney disease Current Visit: Yes Status: Acute Assessment and plan: Acute on chronic renal failure, history of chronic kidney disease of stage III l (4) Systolic heart failure Current Visit: Yes Status: Chronic Assessment and plan: Not in acute exacerbation. 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 Cardiology recommended left heart catheterization prior to discharge after medical optimization. New EF 45 % on June ( refused cath back then) Cardiology recommendations appreciated ASA Metoprolol, Lipitor On Eliquis due to history of right lower extremity DVT (7) Hyperkalemia Current Visit: Yes Status: Resolved Assessment and plan: Resolved after receiving Kayexalate (8) Hyponatremia Current Visit: Yes Status: Acute Assessment and plan: . Stable (9) Subdural hygroma Current Visit: Yes Status: Suspected Assessment and plan: Patient CT scan of the head showed possible hygroma or chronic subdural hematoma , very small possibly in the right frontal lobe. 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 Repeat CT scan of the head showed no change. (10) Diabetes mellitus Current Visit: Yes Status: Chronic Assessment and plan: Continue current insulin regimen. Hold glimepiride Uses up to 42 units of Lantus at home, may resume when able to take diet Qualifiers: Diabetes mellitus type: type 2 Diabetes mellitus retirement insulin use: with superintendent container terminal use Diabetes mellitus complication status: with neurologic complications Diabetes mellitus complication detail: with polyneuropathy Qualified Code(s): E11.42 - Type 2 diabetes mellitus with diabetic polyneuropathy; Z79.4 - long term care phlebotomist (current) use of insulin; Z79.4 - halfway ( current) use of insulin; Z79.4 - long term care phlebotomist (current) use of insulin; Z79.4 - halfway (current) use of insulin - Time Spent With Patient Total time spent is greater than 50% in coordination of care (as documented) at patient's floor/unit and/or counseling patient: - Subjective Interval history: No new complaints. Denies any chest pain, no abdominal pain, no diarrhea, no fevers, no shortness of breath or headaches - Constitutional Vitals: Temp Pulse Resp BP Pulse Ox 98.3 F 65 16 115/75 95 09/07/17 07:05 09/07/17 07:05 09/07/17 07:05 09/07/17 07:05 09/07/17 07:05 General appearance: Present: cooperative, A&O X 3, no acute distress, answers questions appropriately Exam: - Head Head exam: Present: atraumatic, normocephalic - Eye Eye exam: Present: PERRL, conjuntiva pink, sclera anicteric Pupils: Present: PERRL - Neck Neck exam general surgery: Present: supple, trachea midline. Absent: lymphadenopathy - Respiratory Respiratory exam: Present: decreased breath sounds, CTAB. Absent: accessory muscle use, rales, rhonchi, wheezes - Cardiovascular Cardiovascular exam: Present: RRR, +S1, +S2. Absent: diastolic murmur, gallop, rubs, systolic murmur - GI/Abdominal GI/Abdominal exam: Present: normal bowel sounds, soft, no peritoneal signs. Absent: distended, tenderness - Extremities Exam Extremities exam: Present: pedal edema, warm, radial pulses palpable and symmetrical. Absent: calf tenderness, cyanotic Additional comments: Bethea catheter Bilateral +2 pitting edema in both lower extremities with chronic venous stasis changes Internal Medicine: Result - Labs CBC & Chem 7: 09/06/17 04:05 09/06/17 05:14 - ABG Interpretation ABG results: PT/INR, D-dimer PT 14.7 Seconds (9.4-12.1) H 09/01/17 07:17 - VTE Documentation of Mechanical Device: Graduated compression elastic hosiery Consult Discharge Plan - Plan Referrals: Selvin Lin MD [Partnered Physician] - 09/21/17 9:30 am Radha Jones CNP [Primary Care Provider] - (PATIENT IS GOING TO [facility], NO PCP APPOINTMENT NEEDED) Prescriptions: diazePAM [Valium] 2 mg PO BID 7 Days #14 tablet Ertapenem [INVanz] 1,000 mg IVPB DAILY #8 vial Gabapentin [Neurontin] 300 mg PO BID 7 Days #14 capsule Losartan [Cozaar] 25 mg PO DAILY #30 tablet
[2017-09-07 12:17] VITALS: BP 138/65
== END 2017-09-07 17:00 | DRG 871 ==
LOC: EMEROO 22:16 → 3NENU 22:16 → SUATTDRO 09-01 02:48 → 2NNU 09-01 17:44
PROVIDERS: ADMIT Internal Medicine; ATTEND Internal Medicine

== ENCOUNTER 2017-09-20 19:37 | Inpatient (IN) ==
[2017-09-20] MEDS ORDERED: 0.9 % Sodium Chloride 1,000 ML IVC ONE (19:54)
[2017-09-20] MEDS ORDERED: 0.9 % Sodium Chloride 500 ML ONE (19:56)
[2017-09-20 20:22] LABS: Basophils % 0.4 %; Eosinophils # 0.1 K/mcL (0.0-0.6); Eosinophils % 1.2 %; Hematocrit 34.4 % (37.5-50.1); Hemoglobin 11.4 g/dL (12.9-16.9); INR 1.3; Immature Granulocytes % 1.7 % (0-4); Lymphocytes # 0.5 K/mcL (0.6-4.6); Lymphocytes % 4.7 %; Mean Corpuscular HGB Conc 33.1 g/dL (31.6-35.5); Mean Corpuscular Hemoglobin 32.2 pg (28.0-33.3); Mean Corpuscular Volume 97.2 fL (83.0-100.0); Mean Platelet Volume 8.6 fL (9.4-12.4); Neutrophils # 8.7 K/mcL (1.6-8.9); Platelet Count 175 K/mcL (140-400); Prothrombin Time 13.7 Seconds (9.4-12.1); Red Blood Count 3.54 M/mcL (4.19-5.50); Red Cell Distribution Width 13.4 % (11.5-14.5)
[2017-09-20 20:24] LABS: Activated Partial Thrombo Time 35.9 Seconds (26.0-36.0)
[2017-09-20 20:27] LABS: Alanine Aminotransferase 24 Units/L (7-52); Albumin/Globulin Ratio 0.7 (1.1-2.2); Alkaline Phosphatase 248 Units/L (34-104); Aspartate Amino Transferase 28 Units/L (13-39); BUN/Creatinine Ratio 39 (6-26); Bilirubin,Direct 0.2 mg/dL (0.0-0.2); Bilirubin,Indirect 0.4 mg/dL (0.0-1.2); Bilirubin,Total 0.6 mg/dL (0.3-1.0); Blood Urea Nitrogen 77 mg/dL (8-23); Calcium 7.6 mg/dL (8.6-10.3); Carbon Dioxide 28 mEq/L (23-29); Chloride 100 mEq/L (98-107); Ethanol < 10 mg/dL (Less than 10); Globulin 2.8 g/dL (2.4-3.5); Glucose 82 mg/dL (70-105); Osmolality,Calculated 302 (280-300); Potassium 4.3 mEq/L (3.5-5.1); Sodium 135 mEq/L (136-145); Total Protein 4.8 g/dL (6.4-8.9); eGFR For African Americans 40 (> 60); eGFR For Non-African Americans 33 (> 60)
[2017-09-20] MEDS ORDERED: *HR* Dextrose 50 % in Water (Syg) 50 ML SYRINGE IVP ONE (20:46)
[2017-09-20] MEDS ORDERED: *HR* Dextrose 50 % in Water (Syg) 50 ML SYRINGE ONE (20:49)
[2017-09-20 21:11] LABS: Bilirubin,Urine Negative (Negative); Blood,Urine Large (Negative); Clarity,Urine Cloudy (Clear); Color,Urine Yellow (Yellow); Glucose,Urine (UA) Normal (Normal); Ketones,Urine Negative (Negative); Leukocyte Esterase,Urine Moderate (Negative); Nitrite,Urine Negative (Negative); PH,Urine 5.5 pH Units (5.0-8.0); Protein,Urine Negative (Neg-Trace); Specific Gravity,Urine 1.022 (1.010-1.025); Urobilinogen,Urine Normal (Normal)
[2017-09-20 21:14] LABS: Squamous Epithelial Cell,Urine Moderate per lpf (None-Few)
[2017-09-20 21:19] LABS: Amphetamine Screen,Urine Negative ng/mL (Cutoff=1000); Barbiturate Screen,Urine Negative ng/mL (Cutoff=200); Benzodiazepines Screen,Urine Positive ng/mL (Cutoff=200); Cannabinoid Screen,Urine Negative ng/mL (Cutoff = 50); Cocaine Screen,Urine Negative ng/mL (Cutoff= 300); Opiate Screen,Urine Negative ng/mL (Cutoff=300); Phencyclidine Screen,Urine Negative ng/mL (Cutoff=25)
[2017-09-20 21:27] LABS: RBC,Urine TNTC per hpf (0-3)
[2017-09-20 21:28] LABS: Bacteria,Urine Few per hpf (None-Few); Hyaline Casts,Urine Few per lpf (None-Few)
[2017-09-20 21:33] LABS: Troponin I 0.11 ng/mL (< 0.04)
[2017-09-20] MEDS ORDERED: D10% in Water 500 ML IVC ONE (21:38)
[2017-09-20 21:43] LABS: Thyroid Stimulating Hormone 2.604 mcIU/mL (0.340-5.600)
[2017-09-20] MEDS: Dextrose 50 % in Water (Vial) 50 ML in D5% in 0.2% NACL 500 ML IVC SCH (22:19)
[2017-09-20] MEDS: Norepinephrine 4 MG in D5% in Water 250 ML IVC SCH (22:40)
--- NOTE | 2017-09-20 22:45 | Emergency Department Note ---
Disposition Clinical Impression: VIRGILIO (acute kidney injury) Altered mental status Qualifiers: Altered mental status type: somnolence Qualified Code(s): R40.0 - Somnolence Hypotension Qualifiers: Hypotension type: unspecified hypotension type Qualified Code(s): I95.9 - Hypotension, unspecified UTI (urinary tract infection) Qualifiers: Urinary tract infection type: site unspecified Hematuria presence: with hematuria Qualified Code(s): N39.0 - Urinary tract infection, site not specified ; R31.9 - Hematuria, unspecified Disposition: Admitted As Inpatient Condition: Fair Referrals: Radha Jones [employer] ASSISTANT [Primary Care Provider] - Time of Disposition: 23:41 Altered Mental Status HPI - General Chief Complaint: ED Altered Mental Status Stated Complaint: not responding Time Seen by Provider: 09/20/17 19:54 Source: patient Limitations: altered mental status Nursing Notes Reviewed: Yes Vital Signs Reviewed: Yes - History of Present Illness HPI Narrative: Patient is an 86-year-old male who presents to [facility] ED with a chief complaint of unresponsiveness. Patient had been eating dinner and was fine initially but then when they came back to get the tray, he was unresponsive. He had his eyes open but just was not talking to anybody. When EMS arrived, they checked his glucose which was 57. They started him on a D10 drip and when patient arrived, he was more alert and able to answer questions. Patient did have a heart catheterization last week by Dr. Finch. Was told that he had only minimal blockages and no stents were placed. Patient has been doing well [facility]. No recent cough, chest pain, difficulty breathing, abdominal pain, problems with urination or bowel movements. He was treated for urinary tract infection approximately 2 weeks ago. 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 confirmed by: caregiver Pain Severity: none Associated symptoms: Denies: chest pain, cough, fever, chills, nausea/vomiting, shortness of breath, weakness - Related Data Home Medications Medication Instructions Recorded Confirmed Atorvastatin [Lipitor] 40 mg PO DAILY 09/07/15 09/20/17 Insulin Glargine,Hum.rec.anlog 42 unit SQ QAM 09/07/15 09/20/17 [Lantus Solostar] Insulin LISPRO [HumaLOG] 0 - 14 units SQ QPM 09/07/15 09/20/17 Metoprolol [Lopressor] 12.5 mg PO BID 09/07/15 09/20/17 Glimepiride [Amaryl] 4 mg PO DAILY 04/18/17 09/20/17 Sitagliptin Phosphate [Januvia] 50 mg PO Q48H 04/18/17 09/20/17 Cholecalciferol (D-3) [Vitamin D] 2,000 unit PO DAILY 05/09/17 09/20/17 Furosemide [Lasix] 40 mg PO DAILY 07/27/17 09/20/17 Ondansetron [Zofran ODT] 8 mg PO TID PRN 09/01/17 09/20/17 PARoxetine HCl [Paroxetine HCl] 10 mg PO QAM 09/01/17 09/20/17 Acetaminophen [Tylenol Arthritis] 650 mg PO TID 09/13/17 09/20/17 Docusate [Colace] 100 mg PO BID 09/13/17 09/20/17 Previous Rx's Medication Instructions Recorded Tamsulosin [Flomax] 0.4 mg PO DAILY capsule 08/06/15 Apixaban [Eliquis] 2.5 mg PO BID #60 tablet 07/30/17 Aspirin Enteric Coated [Aspirin EC] 81 mg PO DAILY #30 tablet. 07/30/17 Gabapentin [Neurontin] 300 mg PO BID 7 Days #14 capsule 09/06/17 Losartan [Cozaar] 25 mg PO DAILY #30 tablet 09/06/17 diazePAM [Valium] 2 mg PO BID 7 Days #14 tablet 09/06/17 Allergies Allergy/AdvReac Type Severity Reaction Status Date / Time No Known Allergies Allergy Verified 09/14/17 16:30 All systems ED: reviewed and negative except as stated. Past Medical History - Past Medical History Attestation: Yes The following information was validated with the patient. Source: patient Medical history: Reports: DVT, diabetes, hypertension, kidney stones, renal disease, other Surgical history: Reports: herniorrhaphy, pacemaker/AICD Psychiatric history: Reports: anxiety - Social History Smoking Status: Never smoker Smokeless Tobacco Status: No Alcohol use: Reports: rarely Drug use: Reports: none Physical Exam - General Limitations: altered mental status General appearance: alert, in no apparent distress - Head Head exam: atraumatic, normocephalic, normal inspection - Eye Eye exam: Present: normal appearance, PERRL, EOMI - ENT ENT exam: normal exam, normal oropharynx, mucous membranes dry - Neck Neck exam: Present: normal inspection, full ROM, trachea midline - Chest Chest inspection: Present: normal inspection, symmetric chest wall rise - Respiratory Respiratory exam: Present: normal lung sounds bilaterally - Cardiovascular Cardiovascular exam: Present: regular rate, normal rhythm, normal heart sounds - Abdominal Exam Abdominal exam: Present: soft, Non-Tender. Absent: tenderness, distention, guarding, rebound, rigidity - Extremities Exam Extremities exam: Present: full ROM, other (Area of redness over the left upper arm, no crepitus). Absent: pedal edema - Back Exam Back exam: Present: normal inspection, full ROM. Absent: tenderness - Neurological Exam Neurological exam: Present: alert, oriented X3 - Psychiatric Psychiatric exam: Present: normal affect, normal mood - Skin Skin exam: Present: warm, dry, intact, normal color Course Course Narrative: Pt seen and examined, upon my initial examination, he was alert and oriented 3. However after short time, he did become more somnolent again. His Accu- Chek repeat was in the 50s again. He was given an amp of D50 and then started on a D10 drip again. Patient was hypotensive upon his arrival with blood pressure 80s over 50s. Critical-care workup initiated along with CT of the head. Despite of liter of fluid resuscitation, he remained hypotensive. Decision was made to place a central line. Since patient is on Eliquis and has a history of von Willebrand's disease, there is concern for bleeding. Line was placed in the right femoral vein. - Reevaluation(s) Reevaluation #1: Patient currently on a D10 drip as well as on levothyroid. Blood pressure improved to a systolic of 105. We will continue to monitor. CT of the head, chest abdomen and pelvis ordered for when patient is stable. Patient labwork shows signs of an elevated troponin which appears chronically elevated. No EKG changes. His chest x-ray is unremarkable. The urine analysis does show signs of a possible urinary tract infection. We will go ahead and treat with Rocephin. Will admit for AMS, hypoglycemia, UTI, hypotension. I discussed with hospitalist Dr. Benjamin who has accepted patient for admission to the ICU. Time: 23:39 Vital Signs Temperature 97.4 F L 09/20/17 19:43 Pulse Rate 71 09/20/17 19:43 Respiratory Rate 16 09/20/17 19:43 Blood Pressure 84/54 09/20/17 19:43 O2 Sat by Pulse Oximetry 100 09/20/17 19:43 Temperature 97.4 F L 09/20/17 19:43 Pulse Rate 73 09/20/17 21:21 Respiratory Rate 12 09/20/17 21:21 Blood Pressure 72/52 09/20/17 21:21 O2 Sat by Pulse Oximetry 98 09/20/17 21:21 Oxygen Delivery Oxygen Delivery Nasal Cannula Procedures - Central Line Placement Right Femoral Central Line Inserted*: Yes Central Line Catheter Replacement*: Yes Central Line Insertion: emergent Consent Obtained: written consent Procedural Pause: verify patient name and date of , cindy and assess the site, assemble equipment and verify supplies, perform hand hygiene Patient Placed on Monitor/Pulse Ox: Yes During the Procedure: clinician is wearing sterile gloves, cap, mask,& gown during insertion, sterile field and sterile technique are maintained, patient's face is covered with drape or mask and wearing a cap, everyone in room is wearing a mask Central Line Prep: Chlorhexidine scrub Prep the Procedure Site: apply chloraprep to the skin using a back and forth scrubbing motion, apply chloraprep for 30 seconds (upper body), 1-2 min ( femoral sites), allow prep to dry, drape the patient with a full body drape Local Anesthetic: lidocaine 1% Amount of anesthesia used (mL): 3 Ultrasound Used for Placement: Yes Central Line Lumen Inserted: triple Post Procedure: sutured in place, good blood return, all ports aspirated, flushed, capped, sterile dressing applied, guide wire removed and visualized Patient Tolerated Procedure: well, no complications Name of Clinician Inserting Central Line: Dr. Root Date: 09/20/17 Time: 21:00 Altered Mental Status - Medical Records Medical records reviewed: Yes I reviewed the patient's medical records. - Lab Data Lab results reviewed: Yes I reviewed the patient's lab results. Result diagrams: 09/20/17 19:54 09/20/17 19:54 Lab Results 09/20/17 09/20/17 09/20/17 Range/Units 19:54 19:54 19:54 WBC 10.5 (4.3-11.1) K/mcL RBC 3.54 L (4.19-5.50) M/mcL Hgb 11.4 L (12.9-16.9) g/dL Hct 34.4 L (37.5-50.1) % MCV 97.2 (83.0-100.0) fL MCH 32.2 (28.0-33.3) pg MCHC 33.1 (31.6-35.5) g/dL RDW 13.4 (11.5-14.5) % Plt Count 175 (140-400) K/mcL MPV 8.6 L (9.4-12.4) fL Immature Gran % 1.7 (0-4) % Seg Neutrophils % 83.0 % Lymphocytes % 4.7 % Monocytes % 9.0 % Eosinophils % 1.2 % Basophils % 0.4 % Neutrophils # 8.7 (1.6-8.9) K/mcL Lymphocytes # 0.5 L (0.6-4.6) K/mcL Monocytes # 1.0 (0.0-1.3) K/mcL Eosinophils # 0.1 (0.0-0.6) K/mcL Basophils # 0.0 (0.0-0.2) K/mcL PT 13.7 H (9.4-12.1) Seconds INR 1.3 APTT 35.9 (26.0-36.0) Seconds Sodium 135 L (136-145) mEq/L Potassium 4.3 (3.5-5.1) mEq/L Chloride 100 (98-107) mEq/L Carbon Dioxide 28 (23-29) mEq/L BUN 77 H (8-23) mg/dL Creatinine 1.96 H (0.70-1.30) mg/dL Est GFR ( Amer) 40 L (> 60) Est GFR (Non-Af Amer) 33 L (> 60) BUN/Creatinine Ratio 39 H (6-26) Glucose 82 (70-105) mg/dL Calculated Osmolality 302 H (280-300) Calcium 7.6 L (8.6-10.3) mg/dL Total Bilirubin 0.6 (0.3-1.0) mg/dL Direct Bilirubin 0.2 (0.0-0.2) mg/dL Indirect Bilirubin 0.4 (0.0-1.2) mg/dL AST 28 (13-39) Units/L ALT 24 (7-52) Units/L Alkaline Phosphatase 248 H (34-104) Units/L Ammonia (16-53) mcmol/L Troponin I 0.11 H* (< 0.04) ng/mL Serum Total Protein 4.8 L (6.4-8.9) g/dL Albumin 2.0 L (3.5-5.7) g/dL Globulin 2.8 (2.4-3.5) g/dL Albumin/Globulin Ratio 0.7 L (1.1-2.2) TSH 2.604 (0.340-5.600) mcIU/mL Urine Color (Yellow) Urine Clarity (Clear) Urine pH (5.0-8.0) pH Units Ur Specific [place] (1.010-1.025) Urine Protein (Neg-Trace) mg/dL Urine Glucose (UA) (Normal) mg/dL Urine Ketones (Negative) mg/dL Urine Blood (Negative) Urine Nitrite (Negative) Urine Bilirubin (Negative) Urine Urobilinogen (Normal) mg/dL Ur Leukocyte Esterase (Negative) Urine Microscopic RBC (0-3) per hpf Urine Microscopic WBC (0-3) per hpf Ur Squamous Epith Cells (None-Few) per lpf Urine Bacteria (None-Few) per hpf Hyaline Casts (None-Few) per lpf Urine Yeast Ur Culture Indicated? (NO) Urine Opiates Screen (Ylgtlv=159) ng/mL Ur Barbiturates Screen (Wowtmj=732) ng/mL Ur Phencyclidine Scrn (Cutoff=25) ng/mL Ur Amphetamines Screen (Ayfaxr=7224) ng/mL U Benzodiazepines Scrn (Gnrwra=010) ng/mL Urine Cocaine Screen (Cutoff= 300) ng/mL U Marijuana (THC) Screen (Cutoff = 50) ng/mL Ethyl Alcohol < 10 (Less than 10) mg/dL 09/20/17 09/20/17 09/20/17 Range/Units 19:54 20:51 20:51 WBC (4.3-11.1) K/mcL RBC (4.19-5.50) M/mcL Hgb (12.9-16.9) g/dL Hct (37.5-50.1) % MCV (83.0-100.0) fL MCH (28.0-33.3) pg MCHC (31.6-35.5) g/dL RDW (11.5-14.5) % Plt Count (140-400) K/mcL MPV (9.4-12.4) fL Immature Gran % (0-4) % Seg Neutrophils % % Lymphocytes % % Monocytes % % Eosinophils % % Basophils % % Neutrophils # (1.6-8.9) K/mcL Lymphocytes # (0.6-4.6) K/mcL Monocytes # (0.0-1.3) K/mcL Eosinophils # (0.0-0.6) K/mcL Basophils # (0.0-0.2) K/mcL PT (9.4-12.1) Seconds INR APTT (26.0-36.0) Seconds Sodium (136-145) mEq/L Potassium (3.5-5.1) mEq/L Chloride (98-107) mEq/L Carbon Dioxide (23-29) mEq/L BUN (8-23) mg/dL Creatinine (0.70-1.30) mg/dL Est GFR ( Amer) (> 60) Est GFR (Non-Af Amer) (> 60) BUN/Creatinine Ratio (6-26) Glucose (70-105) mg/dL Calculated Osmolality (280-300) Calcium (8.6-10.3) mg/dL Total Bilirubin (0.3-1.0) mg/dL Direct Bilirubin (0.0-0.2) mg/dL Indirect Bilirubin (0.0-1.2) mg/dL AST (13-39) Units/L ALT (7-52) Units/L Alkaline Phosphatase (34-104) Units/L Ammonia 28 (16-53) mcmol/L Troponin I (< 0.04) ng/mL Serum Total Protein (6.4-8.9) g/dL Albumin (3.5-5.7) g/dL Globulin (2.4-3.5) g/dL Albumin/Globulin Ratio (1.1-2.2) TSH (0.340-5.600) mcIU/mL Urine Color Yellow (Yellow) Urine Clarity Cloudy A (Clear) Urine pH 5.5 (5.0-8.0) pH Units Ur Specific [place] 1.022 (1.010-1.025) Urine Protein Negative (Neg-Trace) mg/dL Urine Glucose (UA) Normal (Normal) mg/dL Urine Ketones Negative (Negative) mg/dL Urine Blood Large H (Negative) Urine Nitrite Negative (Negative) Urine Bilirubin Negative (Negative) Urine Urobilinogen Normal (Normal) mg/dL Ur Leukocyte Esterase Moderate H (Negative) Urine Microscopic RBC TNTC H (0-3) per hpf Urine Microscopic WBC 5-15 H (0-3) per hpf Ur Squamous Epith Cells Moderate H (None-Few) per lpf Urine Bacteria Few (None-Few) per hpf Hyaline Casts Few (None-Few) per lpf Urine Yeast Test Not Performed Ur Culture Indicated? YES A (NO) Urine Opiates Screen Negative (Ojtwdw=317) ng/mL Ur Barbiturates Screen Negative (Zhoccz=096) ng/mL Ur Phencyclidine Scrn Negative (Cutoff=25) ng/mL Ur Amphetamines Screen Negative (Monael=4383) ng/mL U Benzodiazepines Scrn Positive H (Gwjuei=790) ng/mL Urine Cocaine Screen Negative (Cutoff= 300) ng/mL U Marijuana (THC) Screen Negative (Cutoff = 50) ng/mL Ethyl Alcohol (Less than 10) mg/dL - Radiology Data Radiology results reviewed: Yes I reviewed the patient's radiology results. Chest X-Ray 09/20/17 19:54 IMPRESSION: Low lung volume study. Minimal left basilar opacities probably represent atelectasis. Otherwise no significant change. No definite acute process. D/ / 09/20/2017 20:31:22 Kvng Porras MD / [facility] Interpreting Provider: Kvng Porras MD - EKG Data EKG attestation: Yes I reviewed and interpreted this EKG. TPA Checklist - LKW: 3-4.5 hrs Add. Warnings/Precautions Patient/family understanding: The patient/family members have been counseled and understood the risk, benefit , and alternatives of treatment.
[2017-09-20] MEDS ORDERED: cefTRIAXone 2,000 MG in 0.9 % Sodium Chloride Mini Bag 100 ML IVPB ONE (23:30)
--- NOTE | 2017-09-21 00:03 | Emergency Department Note ---
Disposition Clinical Impression: VIRGILIO (acute kidney injury) Altered mental status Qualifiers: Altered mental status type: somnolence Qualified Code(s): R40.0 - Somnolence Hypotension Qualifiers: Hypotension type: unspecified hypotension type Qualified Code(s): I95.9 - Hypotension, unspecified UTI (urinary tract infection) Qualifiers: Urinary tract infection type: site unspecified Hematuria presence: with hematuria Qualified Code(s): N39.0 - Urinary tract infection, site not specified Disposition: Admitted As Inpatient Condition: Fair Referrals: Radha Jones [employer] MANAGER [Primary Care Provider] - Forms: ED Satisfaction Letter General Adult HPI - General Chief complaint: ED Altered Mental Status Stated complaint: not responding Time Seen by Provider: 09/20/17 19:54 Source: patient Limitations: altered mental status Nursing Notes Reviewed: Yes Vital Signs Reviewed: Yes - History of Present Illness Pain Scale: 0 - Related Data Home Medications Medication Instructions Recorded Confirmed Atorvastatin [Lipitor] 40 mg PO DAILY 09/07/15 09/20/17 Insulin Glargine,Hum.rec.anlog 42 unit SQ QAM 09/07/15 09/20/17 [Lantus Solostar] Insulin LISPRO [HumaLOG] 0 - 14 units SQ QPM 09/07/15 09/20/17 Metoprolol [Lopressor] 12.5 mg PO BID 09/07/15 09/20/17 Glimepiride [Amaryl] 4 mg PO DAILY 04/18/17 09/20/17 Sitagliptin Phosphate [Januvia] 50 mg PO Q48H 04/18/17 09/20/17 Cholecalciferol (D-3) [Vitamin D] 2,000 unit PO DAILY 05/09/17 09/20/17 Furosemide [Lasix] 40 mg PO DAILY 07/27/17 09/20/17 Ondansetron [Zofran ODT] 8 mg PO TID PRN 09/01/17 09/20/17 PARoxetine HCl [Paroxetine HCl] 10 mg PO QAM 09/01/17 09/20/17 Acetaminophen [Tylenol Arthritis] 650 mg PO TID 09/13/17 09/20/17 Docusate [Colace] 100 mg PO BID 09/13/17 09/20/17 Previous Rx's Medication Instructions Recorded Tamsulosin [Flomax] 0.4 mg PO DAILY capsule 08/06/15 Apixaban [Eliquis] 2.5 mg PO BID #60 tablet 07/30/17 Aspirin Enteric Coated [Aspirin EC] 81 mg PO DAILY #30 tablet. 07/30/17 Gabapentin [Neurontin] 300 mg PO BID 7 Days #14 capsule 09/06/17 Losartan [Cozaar] 25 mg PO DAILY #30 tablet 09/06/17 diazePAM [Valium] 2 mg PO BID 7 Days #14 tablet 09/06/17 Allergies Allergy/AdvReac Type Severity Reaction Status Date / Time No Known Allergies Allergy Verified 09/14/17 16:30 Past Medical History - Past Medical History Medical history: Reports: DVT, diabetes, hypertension, kidney stones, renal disease, other Surgical history: Reports: herniorrhaphy, pacemaker/AICD Psychiatric history: Reports: anxiety - Social History Smoking Status: Never smoker Smokeless Tobacco Status: No Alcohol use: Reports: rarely Drug use: Reports: none Physical Exam - General Limitations: altered mental status General appearance: alert, in no apparent distress Course Vital Signs Temperature 97.4 F L 09/20/17 19:43 Pulse Rate 71 09/20/17 19:43 Respiratory Rate 16 09/20/17 19:43 Blood Pressure 84/54 09/20/17 19:43 O2 Sat by Pulse Oximetry 100 09/20/17 19:43 Temperature 97.4 F L 09/20/17 19:43 Pulse Rate 83 09/20/17 23:15 Respiratory Rate 12 09/20/17 21:21 Blood Pressure 108/80 09/20/17 23:15 O2 Sat by Pulse Oximetry 100 09/20/17 23:15 Oxygen Delivery Oxygen Delivery Nasal Cannula Medical Decision Making - Lab Data Result diagrams: 09/20/17 19:54 09/20/17 19:54 Lab Results 09/20/17 09/20/17 09/20/17 Range/Units 19:54 19:54 19:54 WBC 10.5 (4.3-11.1) K/mcL RBC 3.54 L (4.19-5.50) M/mcL Hgb 11.4 L (12.9-16.9) g/dL Hct 34.4 L (37.5-50.1) % MCV 97.2 (83.0-100.0) fL MCH 32.2 (28.0-33.3) pg MCHC 33.1 (31.6-35.5) g/dL RDW 13.4 (11.5-14.5) % Plt Count 175 (140-400) K/mcL MPV 8.6 L (9.4-12.4) fL Immature Gran % 1.7 (0-4) % Seg Neutrophils % 83.0 % Lymphocytes % 4.7 % Monocytes % 9.0 % Eosinophils % 1.2 % Basophils % 0.4 % Neutrophils # 8.7 (1.6-8.9) K/mcL Lymphocytes # 0.5 L (0.6-4.6) K/mcL Monocytes # 1.0 (0.0-1.3) K/mcL Eosinophils # 0.1 (0.0-0.6) K/mcL Basophils # 0.0 (0.0-0.2) K/mcL PT 13.7 H (9.4-12.1) Seconds INR 1.3 APTT 35.9 (26.0-36.0) Seconds Sodium 135 L (136-145) mEq/L Potassium 4.3 (3.5-5.1) mEq/L Chloride 100 (98-107) mEq/L Carbon Dioxide 28 (23-29) mEq/L BUN 77 H (8-23) mg/dL Creatinine 1.96 H (0.70-1.30) mg/dL Est GFR ( Amer) 40 L (> 60) Est GFR (Non-Af Amer) 33 L (> 60) BUN/Creatinine Ratio 39 H (6-26) Glucose 82 (70-105) mg/dL Calculated Osmolality 302 H (280-300) Calcium 7.6 L (8.6-10.3) mg/dL Total Bilirubin 0.6 (0.3-1.0) mg/dL Direct Bilirubin 0.2 (0.0-0.2) mg/dL Indirect Bilirubin 0.4 (0.0-1.2) mg/dL AST 28 (13-39) Units/L ALT 24 (7-52) Units/L Alkaline Phosphatase 248 H (34-104) Units/L Ammonia (16-53) mcmol/L Troponin I 0.11 H* (< 0.04) ng/mL Serum Total Protein 4.8 L (6.4-8.9) g/dL Albumin 2.0 L (3.5-5.7) g/dL Globulin 2.8 (2.4-3.5) g/dL Albumin/Globulin Ratio 0.7 L (1.1-2.2) TSH 2.604 (0.340-5.600) mcIU/mL Urine Color (Yellow) Urine Clarity (Clear) Urine pH (5.0-8.0) pH Units Ur Specific [place] (1.010-1.025) Urine Protein (Neg-Trace) mg/dL Urine Glucose (UA) (Normal) mg/dL Urine Ketones (Negative) mg/dL Urine Blood (Negative) Urine Nitrite (Negative) Urine Bilirubin (Negative) Urine Urobilinogen (Normal) mg/dL Ur Leukocyte Esterase (Negative) Urine Microscopic RBC (0-3) per hpf Urine Microscopic WBC (0-3) per hpf Ur Squamous Epith Cells (None-Few) per lpf Urine Bacteria (None-Few) per hpf Hyaline Casts (None-Few) per lpf Urine Yeast Ur Culture Indicated? (NO) Urine Opiates Screen (Scrgxl=114) ng/mL Ur Barbiturates Screen (Ruegwx=183) ng/mL Ur Phencyclidine Scrn (Cutoff=25) ng/mL Ur Amphetamines Screen (Yblvjg=1651) ng/mL U Benzodiazepines Scrn (Zlkwma=905) ng/mL Urine Cocaine Screen (Cutoff= 300) ng/mL U Marijuana (THC) Screen (Cutoff = 50) ng/mL Ethyl Alcohol < 10 (Less than 10) mg/dL 09/20/17 09/20/17 09/20/17 Range/Units 19:54 20:51 20:51 WBC (4.3-11.1) K/mcL RBC (4.19-5.50) M/mcL Hgb (12.9-16.9) g/dL Hct (37.5-50.1) % MCV (83.0-100.0) fL MCH (28.0-33.3) pg MCHC (31.6-35.5) g/dL RDW (11.5-14.5) % Plt Count (140-400) K/mcL MPV (9.4-12.4) fL Immature Gran % (0-4) % Seg Neutrophils % % Lymphocytes % % Monocytes % % Eosinophils % % Basophils % % Neutrophils # (1.6-8.9) K/mcL Lymphocytes # (0.6-4.6) K/mcL Monocytes # (0.0-1.3) K/mcL Eosinophils # (0.0-0.6) K/mcL Basophils # (0.0-0.2) K/mcL PT (9.4-12.1) Seconds INR APTT (26.0-36.0) Seconds Sodium (136-145) mEq/L Potassium (3.5-5.1) mEq/L Chloride (98-107) mEq/L Carbon Dioxide (23-29) mEq/L BUN (8-23) mg/dL Creatinine (0.70-1.30) mg/dL Est GFR ( Amer) (> 60) Est GFR (Non-Af Amer) (> 60) BUN/Creatinine Ratio (6-26) Glucose (70-105) mg/dL Calculated Osmolality (280-300) Calcium (8.6-10.3) mg/dL Total Bilirubin (0.3-1.0) mg/dL Direct Bilirubin (0.0-0.2) mg/dL Indirect Bilirubin (0.0-1.2) mg/dL AST (13-39) Units/L ALT (7-52) Units/L Alkaline Phosphatase (34-104) Units/L Ammonia 28 (16-53) mcmol/L Troponin I (< 0.04) ng/mL Serum Total Protein (6.4-8.9) g/dL Albumin (3.5-5.7) g/dL Globulin (2.4-3.5) g/dL Albumin/Globulin Ratio (1.1-2.2) TSH (0.340-5.600) mcIU/mL Urine Color Yellow (Yellow) Urine Clarity Cloudy A (Clear) Urine pH 5.5 (5.0-8.0) pH Units Ur Specific [place] 1.022 (1.010-1.025) Urine Protein Negative (Neg-Trace) mg/dL Urine Glucose (UA) Normal (Normal) mg/dL Urine Ketones Negative (Negative) mg/dL Urine Blood Large H (Negative) Urine Nitrite Negative (Negative) Urine Bilirubin Negative (Negative) Urine Urobilinogen Normal (Normal) mg/dL Ur Leukocyte Esterase Moderate H (Negative) Urine Microscopic RBC TNTC H (0-3) per hpf Urine Microscopic WBC 5-15 H (0-3) per hpf Ur Squamous Epith Cells Moderate H (None-Few) per lpf Urine Bacteria Few (None-Few) per hpf Hyaline Casts Few (None-Few) per lpf Urine Yeast Test Not Performed Ur Culture Indicated? YES A (NO) Urine Opiates Screen Negative (Nkxqsq=150) ng/mL Ur Barbiturates Screen Negative (Aghpls=134) ng/mL Ur Phencyclidine Scrn Negative (Cutoff=25) ng/mL Ur Amphetamines Screen Negative (Hqdrmn=1792) ng/mL U Benzodiazepines Scrn Positive H (Ynwssx=339) ng/mL Urine Cocaine Screen Negative (Cutoff= 300) ng/mL U Marijuana (THC) Screen Negative (Cutoff = 50) ng/mL Ethyl Alcohol (Less than 10) mg/dL Critical Care Time Critical Care Time: Yes Total Critical Care Time: 50 Attestation: Critical care performed: Time is exclusive of separately billable procedures. Time includes: direct patient care, patient reassessment, coordination of patient care, interpretation of data (laboratory data, radiology data, and respiratory data), review of patient's medical records, medical consultation and documentation of patient care. Procedures included in critical care time: Procedures excluded from critical care time: Right femoral central line placement Attestation Statement - Attestation Attestation: IRyne MD, personally evaluated this patient and discussed their management with the resident physician. I reviewed the resident's note and agree with the documented findings, medical decision making, and plan of care. 86-year-old male presents to the emergency department from a local custodial for altered mental status. Patient was recently in the hospital here and had a cardiac catheter. Family reports that he was at physical therapy this morning and was doing fine and he was fine earlier today. He apparently was found in his room unresponsive this evening. EMS reports on their arrival he was unresponsive and his fingerstick blood sugar was 57. They started an IV and started D10. In route to the hospital he became more alert. On arrival here the patient responds to verbal stimuli and answers questions appropriately. He is alert and oriented to person and place and knows the year. He denies any headache. No chest pain or abdominal pain. No shortness of breath. Patient has somewhat hypotensive. Family denies any new blood pressure medications her heart medications. On examination patient is a well-developed obese elderly male in no acute distress. He does have some decreased mental status but responds to verbal stimuli and answers questions appropriately. There is no cyanosis or diaphoresis. Chest is nontender to palpation. Breath sounds are equal bilaterally with a few dry crackles in the bases bilaterally. No wheezes. Heart regular with a mild tachycardia. Abdomen soft and nontender with present bowel sounds. 2+ pitting edema of the right lower extremity and 2+ pitting edema of the left lower extremity. Family reports this is chronic but is worse than usual over the past few weeks. No gross focal neurological deficits. Labs reviewed. Patient does have some acute kidney injury with an increase in his BUN and creatinine. Otherwise his labs are mostly at baseline compared to previous. Chest x-ray shows: Minimal left basilar opacities probably represent atelectasis. Otherwise no significant change. No definite acute process. EKG shows electronic ventricular pacemaker. CT of the head, chest, abdomen, pelvis, was ordered. At present patient has not been stable left ago for the CTs due to his blood pressure and also when he lies flat he becomes apneic and drops his oxygen saturations. Patient was hypotensive on arrival. He was given a fluid bolus with no improvement in his blood pressure. He also became less responsive again and repeat fingerstick blood sugar was 53. He received an amp of D50 IV. Repeat fingerstick blood sugar after the D50 was 117. This did not really improve much with the D50. He continued to be hypotensive and a central line catheter was placed in the right femoral vein by Dr. Root under my direct supervision. Patient was started on norepinephrine infusion. The hospitalist, Dr. Benjamin, was consulted and accepted admission of the patient.
[2017-09-21] MEDS ORDERED: Naloxone 0.4 MG/ML INJ IVP PRN (00:41)
[2017-09-21] MEDS ORDERED: 0.9 % Sodium Chloride 500 ML IVC ONE (00:49)
--- NOTE | 2017-09-21 00:56 | Event Note ---
Date of Encounter: 09/21/17 Time of Encounter: 00:44 Patient was seen and examined. I agree with the H&P as written by the Resident Physician. Briefly, patient with extensive history including pacemaker, HTN, DM, CKD stage 3, h/o DVT on anticoag, Alzheimer's, and recent diagnosis of CHF with EF of 45% and a recent LHC done last week showing minimal 2 vessel disease. He comes from SNF after an episode of unresponsiveness with glucose in the 50s. The patient was doing well during the day and did rehab work earlier. He was put on a dextrose drip and transferred with improvement in mental status. BP was as low as 60s/40s. A central line was placed and pressors were started. The patient was recently discharged from here on 09/06 and was treated for ESBL UTI and finished 14 days. In the ED, labs were remarkable for creatinine of 1.96. Creatinine was 1.24 on 09/14. Trops .11. No leukocytosis. Hgb around baseline. Due to the patient's critical presentation, he has not had a CT head yet and we were called to admit. Patient is A/Ox3, NAD RRR, S1, S2, no m/r/g diminshed breath sounds but clear soft abdomen, NT, ND, +BS LE 2+ edema, 2+ DP Nonfocal Will admit to ICU for hypotension/hypoglycemia Wean pressor as tolerated. May gently hydrate with EF of 45%. Patient maybe over medicated with anti-diabetic and antihypertensives causing his presentation Patient was given ceftriaxone in the ED for possible UTI. The patient does not look toxic With history of ESBL, we will switch him to meropenem for now pending cultures. UA is not very impressive f/u on CT head, f/u on CT chest/abdomen/pelvis f/u on lactic acid Trend cardiac enzymes c/w dextrose drip Hold antihypertensives. Hold anti-diabetics. Place on sliding scale insulin Meds need to be looked at before d/c. Not sure if patient is taking enough PO to keep up with his current meds. Resume eliquis
--- NOTE | 2017-09-21 00:58 | Internal Med History&Physical ---
Date of Encounter: 09/21/17 Time of Encounter: 00:51 Internal Medicine - H&P: HPI Chief complaint: Altered mental status Admitted From: [facility] History of present illness: Mr. Vázquez is a 86 year old male history of congestive heart failure, diabetes, chronic kidney disease, hypertension with an indwelling catheter present for evaluation of decreased responsiveness. Patient presented from [facility]. Patient at the time was found by family with decreased responsiveness. Upon arrival EMS found the patient to be hypoglycemic with a glucose of 57. EMS started the patient on a D10 drip. Reports were that the patient's mental status improved following that intervention. Patient was alert and answering questions appropriately. Patient was able to recall any had a recent heart catheterization was only minimal blockages. Patient denied any chest pain or cough or shortness of breath. Patient denies any nausea vomiting. No abdominal pain. Patient denied any new medications or changes with medications. Patient states he has been taking his insulin as directed. Patient's also been taking his other diabetic medications as directed. Patient states that he was recently treated for urinary tract infection. Patient denies any change in swelling of his lower extremities. 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 Patient denies any blood in the stool or dark tarry stools. Patient was seen and examined in the ED. Patient appears in no acute distress. Patient's alert and appropriate. Patient's able to recall the day and the place. Patient is able to recall the events. Notes his recent heart catheter. Patient's also able to recall for events leading to his family. Blood glucose at bedside at my evaluation is 100. Patient had refractory hypoglycemic episodes during the ED course. Patient was started on a D10 infusion. Patient also became hypotensive of unknown etiology and was started on Levaquin bed. Empirically treating for a UTI. Patient has a CT of the chest abdomen pelvis pending. There is no family at bedside to confirm the patient's history. Past Med Surg Social Fam HX - Past Medical History Medical history: DVT, diabetes, hypertension, kidney stones, renal disease, other Psychiatric history: anxiety - Past Surgical History Surgical History: herniorrhaphy, pacemaker/AICD - Social History Smoking Status: Never smoker Smokeless Tobacco Status: No Alcohol use: rarely Drug use: none - Family History Father Hx Family Cardiac Disorders: Yes Hx Family Respiratory Disorders: No Hx Family Cancer: No Hx Family GI Disorders: No Hx Family Endocrine Disorder: No Hx Family Neuromuscular Disorders: No Hx Family Neurologic Disorders: No Hx Family HEENT Disorders: No Hx Family Autoimmune Disorders: No Mother History Unknown: Yes Family Member Ethnicity: Non- Living Status: Hx Family Cardiac Disorders: No Hx Family Respiratory Disorders: No Hx Family Cancer: No Hx Family GI Disorders: No Hx Family Endocrine Disorder: No Hx Family Neuromuscular Disorders: No Hx Family Neurologic Disorders: No Hx Family HEENT Disorders: No Hx Family Autoimmune Disorders: No Internal Medicine - H&P: Meds Tamsulosin [Flomax] 0.4 mg PO DAILY capsule 08/06/15 [Rx] Atorvastatin [Lipitor] 40 mg PO DAILY 09/07/15 [History] Insulin Glargine,Hum.rec.anlog [Lantus Solostar] 42 unit SQ QAM 09/07/15 [ History] Insulin LISPRO [HumaLOG] 0 - 14 units SQ QPM 09/07/15 [History] Metoprolol [Lopressor] 12.5 mg PO BID 09/07/15 [History] Glimepiride [Amaryl] 4 mg PO DAILY 04/18/17 [History] Sitagliptin Phosphate [Januvia] 50 mg PO Q48H 04/18/17 [History] Cholecalciferol (D-3) [Vitamin D] 2,000 unit PO DAILY 05/09/17 [History] Furosemide [Lasix] 40 mg PO DAILY 07/27/17 [History] Apixaban [Eliquis] 2.5 mg PO BID #60 tablet 07/30/17 [Rx] Aspirin Enteric Coated [Aspirin EC] 81 mg PO DAILY #30 tablet. 07/30/17 [Rx] Ondansetron [Zofran ODT] 8 mg PO TID PRN 09/01/17 [History] PARoxetine HCl [Paroxetine HCl] 10 mg PO QAM 09/01/17 [History] Gabapentin [Neurontin] 300 mg PO BID 7 Days #14 capsule 09/06/17 [Rx] Losartan [Cozaar] 25 mg PO DAILY #30 tablet 09/06/17 [Rx] diazePAM [Valium] 2 mg PO BID 7 Days #14 tablet 09/06/17 [Rx] Acetaminophen [Tylenol Arthritis] 650 mg PO TID 09/13/17 [History] Docusate [Colace] 100 mg PO BID 09/13/17 [History] 3 Allergy/AdvReac Type Severity Reaction Status Date / Time No Known Allergies Allergy Verified 09/14/17 16:30 All Systems PM: A 10-system review of systems was performed and is negative for pertinent findings except as documented above in the HPI. - Constitutional Constitutional: as per HPI, no fever(s) - EENT Eyes: as per HPI - Cardiovascular Cardiovascular ROS IM: as per HPI, no chest pain, no dyspnea, no syncope - Respiratory Respiratory: as per HPI, no cough, no dyspnea on exertion - Gastrointestinal Gastrointestinal: as per HPI, no abdominal pain - Neurological Neurological ROS: as per HPI - Constitutional Vitals: Temp Pulse Resp BP Pulse Ox 97.4 F L 83 12 108/80 100 09/20/17 19:43 09/20/17 23:15 09/20/17 21:21 09/20/17 23:15 09/20/17 23:15 General appearance: Present: A&O X 2, pleasant, answers questions appropriately - Head Head exam: Present: atraumatic, normocephalic - Eye Eye exam: Present: EOMI, PERRL - ENT ENT exam: Present: mucous membranes moist - Neck Neck exam general surgery: Present: full ROM, normal inspection - Respiratory Respiratory exam: Present: CTAB. Absent: chest wall tenderness, rales - Cardiovascular Cardiovascular exam: Present: +S1, +S2. Absent: systolic murmur - GI/Abdominal GI/Abdominal exam: Present: soft. Absent: distended, firm - Extremities Exam Additional comments: Extensive 3+ pitting edema to the proximal mid lower leg. Chronic vascular skin changes. Brisk cap refill with warm perfusion. Palpable fullness of the left upper extremity in her arm consistent with notable DVT. - Neurological Exam Neurological exam: Present: alert, CN II-XII intact, no focal deficits. Absent : facial droop, speech deficit - Skin Skin exam: Present: dry, warm Internal Med - H&P Results - Labs CBC & Chem 7: 09/20/17 19:54 09/20/17 19:54 - Assessment and plan (1) Hypoglycemia Current Visit: Yes Status: Acute Assessment and plan: Patient's had refractory hypoglycemic episodes during the ED course. Patient's glucose was noted to be 57. Patient does have several diabetic medications including long-acting sulfonureas. Patient's kidney function is also slightly above baseline. Patient was placed on a D10 infusion. Patient's mental status improved after correction of his glucose. Patient likely is malnourished which she is contributing to these recurrent hypoglycemia. PLAN -q6h Accu-Cheks -Octreotide -Continue with D10 until patient's glucose normalize -Patient may need adjustment with his diabetic medications prior to discharge. -Continue to monitor patient's mental status. (2) Anemia Current Visit: Yes Status: Acute Assessment and plan: Hemoglobin 11.4. Patient has baseline anemia. Patient is on an oral anticoagulant. We will continue to monitor for signs and symptoms of bleeding. Plan -Daily CBC -Transfusion goal hemoglobin greater than 7. Qualifiers: Anemia type: unspecified type Qualified Code(s): D64.9 - Anemia, unspecified (3) Hypotension Current Visit: Yes Status: Acute Assessment and plan: Patient became hypotensive during the ED course. Etiology of the hypotension is unclear. Patient had an EF of a recent echo 45%. Patient denies any fevers or coughs. Patient does have a recent history of ESBL urine with indwelling catheter. The ED course was treating for a presumed UTI however the urine does not show to be significantly infected. We will continue to treat the urine as a source until urine culture is negative. Will change antibiotics to meropenem given the history. Patient does not appear to be in cardiogenic shock. Patient hemoglobin is at his baseline. Patient is a likely slightly dehydrated based on his labs. We will continue with gradual fluid hydration. Plan -Fluid hydration as discussed above -Titrate pressors -Monitor for signs of an infectious source. CT of the chest abdomen pelvis pending. Lactate pending Qualifiers: Hypotension type: unspecified hypotension type Qualified Code(s): I95.9 - Hypotension, unspecified (4) Acute kidney injury superimposed on chronic kidney disease Current Visit: No Status: Acute Assessment and plan: Creatinine of 1.96 GFR of 33. Etiology likely acute on chronic superimposed kidney injury. Patient received 1 L fluid bolus. She was placed on Levo following that to maintain maps. Kidney function is likely prerenal as there is concerns of patient's nutritional status. Plan -500 mL fluid bolus now -Continue with maintenance fluids D10 -Avoid nephrotoxins -Urine lites pending (5) Diabetes mellitus Current Visit: No Status: Chronic Assessment and plan: As above. Holding hyperglycemic medications Qualifiers: Diabetes mellitus type: type 2 Diabetes mellitus fpc insulin use: with fpc use Diabetes mellitus complication status: with neurologic complications Diabetes mellitus complication detail: with polyneuropathy Qualified Code(s): E11.42 - Type 2 diabetes mellitus with diabetic polyneuropathy; Z79.4 - alf (current) use of insulin; Z79.4 - intermediate manager ( current) use of insulin; Z79.4 - intermediate manager (current) use of insulin; Z79.4 - alf (current) use of insulin (6) Elevated troponin Current Visit: Yes Status: Acute Assessment and plan: Troponin of 0.11. No ST elevation on EKG. Patient had a recent heart catheter which showed minimal disease. Patient has chronically elevated troponins in the past. We will continue to trend his troponins. Patient is already anticoagulated. (7) DVT prophylaxis Current Visit: No Status: Acute Assessment and plan: On essence. - Time Spent With Patient Total time spent is greater than 50% in coordination of care (as documented) at patient's floor/unit and/or counseling patient:
[2017-09-21] MEDS ORDERED: *HR* Dextrose 50 % in Water (Syg) 50 ML SYRINGE IVP PRN (02:41)
[2017-09-21] MEDS ORDERED: D5% in Water 1,000 ML IVC PRN (02:41)
[2017-09-21] MEDS ORDERED: Dextrose Gel 15 GM/37.5 ML TUBE PO PRN ×2 (02:41)
--- NOTE | 2017-09-21 02:50 | Pulmonology Consult Note ---
<Adriano Lane - Last Filed: 09/21/17 02:48> Date of Encounter: 09/21/17 Time of Encounter: 02:48 Assessment and Plan (1) Hypoglycemia Current Visit: Yes Status: Acute Patient's had refractory hypoglycemic episodes during the ED course. Patient's glucose was noted to be 57. Patient does have several diabetic medications including long-acting sulfonureas. Patient's kidney function is also slightly above baseline. Patient was placed on a D10 infusion. Patient's mental status improved after correction of his glucose. Patient likely is not keeping up with his oral intake and his poly pharmacy which is contributing to these recurrent hypoglycemia. PLAN -q6h Accu-Cheks, sliding scale insulin. We will keep the patient nothing by mouth until CT scan confirms is no surgical intervention. -Octreotide -Continue with D10 until patient's glucose normalize -Patient may need adjustment with his diabetic medications prior to discharge. -Continue to monitor patient's mental status. (2) Anemia Current Visit: Yes Status: Acute Hemoglobin 11.4. Patient has baseline anemia. Patient is on an oral anticoagulant. We will continue to monitor for signs and symptoms of bleeding. Plan -Daily CBC -Transfusion goal hemoglobin greater than 7. Qualifiers: Anemia type: unspecified type Qualified Code(s): D64.9 - Anemia, unspecified (3) Hypotension Current Visit: Yes Status: Acute Patient became hypotensive during the ED course. Etiology of the hypotension is unclear. Patient had an EF of a recent echo 45%. Patient denies any fevers or coughs. Patient does have a recent history of ESBL urine with indwelling catheter. The ED course was treating for a presumed UTI however the urine does not show to be significantly infected. We will continue to treat the urine as a source until urine culture is negative. Will change antibiotics to meropenem given the history. Patient does not appear to be in cardiogenic shock. Patient hemoglobin is at his baseline. Patient is a likely slightly dehydrated based on his labs. We will continue with gradual fluid hydration. Plan -Fluid hydration as discussed above -Titrate levophed MAP >65 -Monitor for signs of an infectious source. CT of the chest abdomen pelvis pending. Lactate pending Qualifiers: Hypotension type: unspecified hypotension type Qualified Code(s): I95.9 - Hypotension, unspecified (4) Acute kidney injury superimposed on chronic kidney disease Current Visit: No Status: Acute Creatinine of 1.96 GFR of 33. Etiology likely acute on chronic superimposed kidney injury. Patient received 1 L fluid bolus. She was placed on Levo following that to maintain maps. Kidney function is likely prerenal as there is concerns of patient's nutritional status. Plan -500 mL fluid bolus now -Continue with maintenance fluids D10 -Avoid nephrotoxins -Urine lites pending (5) Diabetes mellitus Current Visit: No Status: Chronic As above. Holding hyperglycemic medications. Sliding scale insulin. 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 No ST elevation on EKG. Patient had a recent heart catheter which showed minimal disease. Patient has chronically elevated troponins in the past. We will continue to trend his troponins. Patient is already anticoagulated. 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 Recommendations: Optimal medical therapy of patient's disease. Aggressive risk factor modification. (7) DVT prophylaxis Current Visit: No Status: Acute On [facility] History of Present Illness Consult date: 09/21/17 Requesting physician: Davian Pope Reason for consult: other (Hemodynamic management) Chief complaint: Altered mental status History of present illness: Mr. Vázquez is a 86 year old male history of congestive heart failure, diabetes, chronic kidney disease, hypertension with an indwelling catheter present for evaluation of decreased responsiveness. Patient presented from [facility]. Patient at the time was found by family with decreased responsiveness. Upon arrival EMS found the patient to be hypoglycemic with a glucose of 57. EMS started the patient on a D10 drip. Reports were that the patient's mental status improved following that intervention. Patient was alert and answering questions appropriately. Patient was able to recall any had a recent heart catheterization was only minimal blockages. Patient denied any chest pain or cough or shortness of breath. Patient denies any nausea vomiting. No abdominal pain. Patient denied any new medications or changes with medications. Patient states he has been taking his insulin as directed. Patient's also been taking his other diabetic medications as directed. Patient states that he was recently treated for urinary tract infection. Patient denies any change in swelling of his lower extremities. 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 Patient denies any blood in the stool or dark tarry stools. Past Med Surg Social Fam HX - Past Medical History Medical history: arthritis, CHF, DVT, diabetes, hypertension, kidney stones, renal disease, other Psychiatric history: anxiety - Past Surgical History Surgical History: herniorrhaphy, pacemaker/AICD - Social History Smoking Status: Never smoker Smokeless Tobacco Status: No Alcohol use: none, rarely Drug use: none - Family History Father Hx Family Cardiac Disorders: Yes Hx Family Respiratory Disorders: No Hx Family Cancer: No Hx Family GI Disorders: No Hx Family Endocrine Disorder: No Hx Family Neuromuscular Disorders: No Hx Family Neurologic Disorders: No Hx Family HEENT Disorders: No Hx Family Autoimmune Disorders: No Mother History Unknown: Yes Family Member Ethnicity: Non- Living Status: Hx Family Cardiac Disorders: No Hx Family Respiratory Disorders: No Hx Family Cancer: No Hx Family GI Disorders: No Hx Family Endocrine Disorder: No Hx Family Neuromuscular Disorders: No Hx Family Neurologic Disorders: No Hx Family HEENT Disorders: No Hx Family Autoimmune Disorders: No Medications and Allergies Tamsulosin [Flomax] 0.4 mg PO DAILY capsule 08/06/15 [Rx] Atorvastatin [Lipitor] 40 mg PO DAILY 09/07/15 [History] Insulin Glargine,Hum.rec.anlog [Lantus Solostar] 42 unit SQ QAM 09/07/15 [ History] Insulin LISPRO [HumaLOG] 0 - 14 units SQ QPM 09/07/15 [History] Metoprolol [Lopressor] 12.5 mg PO BID 09/07/15 [History] Glimepiride [Amaryl] 4 mg PO DAILY 04/18/17 [History] Sitagliptin Phosphate [Januvia] 50 mg PO Q48H 04/18/17 [History] Cholecalciferol (D-3) [Vitamin D] 2,000 unit PO DAILY 05/09/17 [History] Furosemide [Lasix] 40 mg PO DAILY 07/27/17 [History] Apixaban [Eliquis] 2.5 mg PO BID #60 tablet 07/30/17 [Rx] Aspirin Enteric Coated [Aspirin EC] 81 mg PO DAILY #30 tablet. 07/30/17 [Rx] Ondansetron [Zofran ODT] 8 mg PO TID PRN 09/01/17 [History] PARoxetine HCl [Paroxetine HCl] 10 mg PO QAM 09/01/17 [History] Gabapentin [Neurontin] 300 mg PO BID 7 Days #14 capsule 09/06/17 [Rx] Losartan [Cozaar] 25 mg PO DAILY #30 tablet 09/06/17 [Rx] diazePAM [Valium] 2 mg PO BID 7 Days #14 tablet 09/06/17 [Rx] Acetaminophen [Tylenol Arthritis] 650 mg PO TID 09/13/17 [History] Docusate [Colace] 100 mg PO BID 09/13/17 [History] 3 Allergy/AdvReac Type Severity Reaction Status Date / Time No Known Allergies Allergy Verified 09/14/17 16:30 All Systems: The remainder of the systems were reviewed and are negative - Constitutional Constitutional: as per HPI, no fever(s) - Cardiovascular Cardiovascular: as per HPI, no chest pain, no dyspnea - Respiratory Respiratory: as per HPI, no cough - Gastrointestinal Gastrointestinal: as per HPI, no abdominal pain - Genitourinary Genitourinary: as per HPI - Neurological Neurological: as per HPI Physical Examination Vital Signs: Vital Signs, Last 4 Hours Temp Pulse Resp BP Pulse Ox 09/21/17 02:36 70 96/60 09/21/17 02:22 75 76/50 99 09/21/17 02:07 70 110/63 97 09/21/17 01:50 96.4 F L 73 14 122/73 100 09/21/17 01:30 109 107/67 97 09/21/17 01:15 112 80/62 96 09/21/17 01:00 88 83/49 92 09/21/17 00:45 109 78/59 97 General appearance: no acute distress, alert Eyes: nonicteric ENT: oropharynx moist Auscultation: bilateral: clear Cardiovascular: regular rate and rhythm Gastrointestinal: soft, non-tender, non-distended Integumentary: normal Extremities: edema, other (Chronic lower ext pitting edema) Musculoskeletal: no deformities normal mental status, non-focal exam, CN II-XII normal Results - Laboratory Findings CBC and BMP: 09/20/17 19:54 09/20/17 19:54 PT/INR, D-dimer PT 13.7 Seconds (9.4-12.1) H 09/20/17 19:54 Abnormal lab findings: Abnormal lab results RBC 3.54 M/mcL (4.19-5.50) L 09/20/17 19:54 Hgb 11.4 g/dL (12.9-16.9) L 09/20/17 19:54 Hct 34.4 % (37.5-50.1) L 09/20/17 19:54 MPV 8.6 fL (9.4-12.4) L 09/20/17 19:54 Lymphocytes # 0.5 K/mcL (0.6-4.6) L 09/20/17 19:54 PT 13.7 Seconds (9.4-12.1) H 09/20/17 19:54 Sodium 135 mEq/L (136-145) L 09/20/17 19:54 BUN 77 mg/dL (8-23) H 09/20/17 19:54 Creatinine 1.96 mg/dL (0.70-1.30) H 09/20/17 19:54 Est GFR ( Amer) 40 (> 60) L 09/20/17 19:54 Est GFR (Non-Af Amer) 33 (> 60) L 09/20/17 19:54 BUN/Creatinine Ratio 39 (6-26) H 09/20/17 19:54 POC Glucose 107 mg/dL (70-99) H 09/21/17 01:47 Calculated Osmolality 302 (280-300) H 09/20/17 19:54 Calcium 7.6 mg/dL (8.6-10.3) L 09/20/17 19:54 Alkaline Phosphatase 248 Units/L (34-104) H 09/20/17 19:54 Troponin I 0.11 ng/mL (< 0.04) H* 09/20/17 19:54 Serum Total Protein 4.8 g/dL (6.4-8.9) L 09/20/17 19:54 Albumin 2.0 g/dL (3.5-5.7) L 09/20/17 19:54 Albumin/Globulin Ratio 0.7 (1.1-2.2) L 09/20/17 19:54 Urine Clarity Cloudy (Clear) A 09/20/17 20:51 Urine Blood Large (Negative) H 09/20/17 20:51 Ur Leukocyte Esterase Moderate (Negative) H 09/20/17 20:51 Urine Microscopic RBC TNTC per hpf (0-3) H 09/20/17 20:51 Urine Microscopic WBC 5-15 per hpf (0-3) H 09/20/17 20:51 Ur Squamous Epith Cells Moderate per lpf (None-Few) H 09/20/17 20:51 Ur Culture Indicated? YES (NO) A 09/20/17 20:51 U Benzodiazepines Scrn Positive ng/mL (Zfqsms=618) H 09/20/17 20:51 - Diagnostic Findings Chest x-ray: report reviewed - Clinical Findings Intake & Output: Intake & Output 09/20/17 09/20/17 09/21/17 15:59 23:59 07:59 Intake Total 100 / 100 Balance 100 / 100 Weight 122.7 kg Consult Discharge Plan - Plan Referrals: Radha Jones, RESEARCH PHYSIOLOGIST [Primary Care Provider] - <Batsheva Damico - Last Filed: 09/21/17 10:46> Date of Encounter: 09/21/17 All Systems: The remainder of the systems were reviewed and are negative Physical Examination Vital Signs: Vital Signs, Last 4 Hours Temp Pulse Resp BP Pulse Ox 09/21/17 09:00 109 16 98/61 95 09/21/17 08:00 90 14 95/58 94 09/21/17 07:51 95.9 F L 09/21/17 06:00 71 111/94 97 Results - Laboratory Findings CBC and BMP: 09/21/17 02:54 09/21/17 02:54 PT/INR, D-dimer PT 13.7 Seconds (9.4-12.1) H 09/20/17 19:54 Abnormal lab findings: Abnormal lab results WBC 11.2 K/mcL (4.3-11.1) H 09/21/17 02:54 RBC 3.85 M/mcL (4.19-5.50) L 09/21/17 02:54 Hgb 11.7 g/dL (12.9-16.9) L 09/21/17 02:54 Hct 37.2 % (37.5-50.1) L 09/21/17 02:54 MCHC 31.5 g/dL (31.6-35.5) L 09/21/17 02:54 MPV 8.5 fL (9.4-12.4) L 09/21/17 02:54 Neutrophils # 9.0 K/mcL (1.6-8.9) H 09/21/17 02:54 PT 13.7 Seconds (9.4-12.1) H 09/20/17 19:54 Sodium 134 mEq/L (136-145) L 09/21/17 02:54 BUN 73 mg/dL (8-23) H 09/21/17 02:54 Creatinine 1.68 mg/dL (0.70-1.30) H 09/21/17 02:54 Est GFR ( Amer) 47 (> 60) L 09/21/17 02:54 Est GFR (Non-Af Amer) 39 (> 60) L 09/21/17 02:54 BUN/Creatinine Ratio 43 (6-26) H 09/21/17 02:54 Glucose 125 mg/dL (70-105) H 09/21/17 02:54 POC Glucose 111 mg/dL (70-99) H 09/21/17 07:05 Calculated Osmolality 301 (280-300) H 09/21/17 02:54 Calcium 7.7 mg/dL (8.6-10.3) L 09/21/17 02:54 Venous Ioniz Calcium 1.03 mmol/L (1.15-1.35) L 09/21/17 03:36 Phosphorus 5.8 mg/dL (2.7-4.5) H 09/21/17 02:54 Alkaline Phosphatase 248 Units/L (34-104) H 09/20/17 19:54 Troponin I 0.11 ng/mL (< 0.04) H* 09/21/17 07:19 Serum Total Protein 4.8 g/dL (6.4-8.9) L 09/20/17 19:54 Albumin 2.0 g/dL (3.5-5.7) L 09/20/17 19:54 Albumin/Globulin Ratio 0.7 (1.1-2.2) L 09/20/17 19:54 Urine Clarity Cloudy (Clear) A 09/20/17 20:51 Urine Blood Large (Negative) H 09/20/17 20:51 Ur Leukocyte Esterase Moderate (Negative) H 09/20/17 20:51 Urine Microscopic RBC TNTC per hpf (0-3) H 09/20/17 20:51 Urine Microscopic WBC 5-15 per hpf (0-3) H 09/20/17 20:51 Ur Squamous Epith Cells Moderate per lpf (None-Few) H 09/20/17 20:51 Ur Culture Indicated? YES (NO) A 09/20/17 20:51 U Benzodiazepines Scrn Positive ng/mL (Jymhbt=[id number]) H 09/20/17 20:51 - Clinical Findings Intake & Output: Intake & Output 09/20/17 09/21/17 09/21/17 23:59 07:59 15:59 Intake Total 870 / 870 838 / 838 Output Total 700 / 700 Balance 170 / 170 838 / 838 Weight 122.7 kg - Attending Attestation I examined this patient and my medical decision-making was reviewed with the Resident Physician. I agree with the documented findings, disposition and treatment plan as described except to the extent set forth below. Patient seen and examined. Labs, radiology, chart personally reviewed. Agree with resident's history and physical, assessment, plan with following comments: BACK SEWER: Patient follows commands, Pulmonary: Acceptable oxygenation and ventilation Cardiovascular: Patient is requiring low dose pressor and will try to wean off. Shock is not clear, Possible multifactorial. GI: Nutrition per dietary and GI prophylaxis per routine Heme: DVT prophylaxis per routine ID: Continue antibiotics and plan to de-escalation. Change antibiotic Renal; urine out put and renal funtion reviewed. patient has chronic use Bethea catheter, suspect source is urine. Endorcine: blood glucose is monitored. Hypoglycemia is multifactorial, and suspect he doesn't needs all his medication. Close monitoring is needed for now Lines: all lines checked and no evidence of infections Skin: skin care to prevent pressure ulcers per nursing routine care
[2017-09-21 03:27] LABS: Basophils # 0.1 K/mcL (0.0-0.2); Basophils % 0.4 %; Eosinophils # 0.2 K/mcL (0.0-0.6); Eosinophils % 1.7 %; Hematocrit 37.2 % (37.5-50.1); Hemoglobin 11.7 g/dL (12.9-16.9); Immature Granulocytes % 1.8 % (0-4); Lymphocytes # 0.8 K/mcL (0.6-4.6); Mean Corpuscular HGB Conc 31.5 g/dL (31.6-35.5); Mean Corpuscular Hemoglobin 30.4 pg (28.0-33.3); Mean Corpuscular Volume 96.6 fL (83.0-100.0); Mean Platelet Volume 8.5 fL (9.4-12.4); Monocytes % 8.6 %; Platelet Count 212 K/mcL (140-400); Red Blood Count 3.85 M/mcL (4.19-5.50); Red Cell Distribution Width 13.8 % (11.5-14.5); Segmented Neutrophils % 80.5 %
[2017-09-21 03:34] LABS: Sodium, Urine 38.5 mEq/L
[2017-09-21 03:37] LABS: Calcium 7.7 mg/dL (8.6-10.3); Magnesium 1.9 mg/dL (1.6-2.6); Phosphorous 5.8 mg/dL (2.7-4.5); Potassium 3.9 mEq/L (3.5-5.1)
[2017-09-21 03:39] LABS: VBG Ionized Calcium 1.03 mmol/L (1.15-1.35)
[2017-09-21] MEDS: Dextrose 50 % in Water (Vial) 50 ML in D5% in 0.2% NACL 500 ML IVC SCH (04:16)
[2017-09-21] MEDS ORDERED: Meropenem 1,000 MG in Water for inj. (sterile) 20 ML 10 ML IVP SCH (06:00)
[2017-09-21] MEDS: Insulin LISPRO 300 UNITS/3 ML VIAL SQ SCH ×3 (07:25→15:44)
[2017-09-21] MEDS: Aspirin Enteric Coated 81 MG Tablet PO SCH (08:17)
[2017-09-21] MEDS: WATER IVC SCH ×2 (08:26→16:21)
[2017-09-21] MEDS: DEXTROSE IVC SCH ×2 (08:26→16:21)
[2017-09-21] MEDS: NACL IVC SCH ×2 (08:26→16:21)
[2017-09-21] MEDS: D5 IVC SCH ×2 (08:26→16:21)
[2017-09-21] MEDS: Apixaban 5 MG TABLET PO SCH ×2 (10:46→21:01)
[2017-09-21 13:20] LABS: VBG Ionized Calcium 1.06 mmol/L (1.15-1.35)
[2017-09-21 13:36] LABS: Magnesium 2.1 mg/dL (1.6-2.6); Potassium 4.3 mEq/L (3.5-5.1)
[2017-09-21 13:40] LABS: Troponin I 0.12 ng/mL (< 0.04)
[2017-09-21] MEDS: Furosemide 40 MG TABLET PO SCH (15:41)
--- NOTE | 2017-09-21 15:53 | Electrocardiograph Report ---
[address] [address] Test Date: 2017-09-20 Pat Name: Mathew Vázquez Department: 104 Room: 12 Gender: M Favor Maker: AUGIE : [id number] Requested By: Medina Benjamin Order Number: [id number] Reading MD: Kristine Craig Measurements Intervals [place] Rate: 114 P: 80 NE: 240 QRS: -74 QRSD: 202 T: 84 QT: 423 QTc: 490 Interpretive Statements ELECTRONIC VENTRICULAR PACEMAKER ABNORMAL RHYTHM ECG Electronically Signed On 09-21-2017 15:52:14 EDT by Kristine Craig
--- NOTE | 2017-09-21 15:54 | Electrocardiograph Report ---
[address] [place] [address] Test Date: 2017-09-20 Pat Name: Mathew Vázquez Department: 104 Room: 12 Gender: M Process Excellence Manager: AUGIE : [id number] Requested By: Clarita Root Order Number: [id number] Reading MD: Kristine Craig Measurements Intervals [place] Rate: 70 P: ME: 0 QRS: -68 QRSD: 201 T: 98 QT: 479 QTc: 499 Interpretive Statements ELECTRONIC VENTRICULAR PACEMAKER ABNORMAL RHYTHM ECG Electronically Signed On 09-21-2017 15:52:23 EDT by Kristine Craig
[2017-09-21] MEDS: Acetaminophen 325 MG TABLET PO PRN (15:57)
[2017-09-21] MEDS ORDERED: Ertapenem 1,000 MG in 0.9 % Sodium Chloride Mini Bag 100 ML IVPB SCH (18:00)
[2017-09-21] MEDS: Norepinephrine 4 MG in D5% in Water 250 ML IVC SCH (20:57)
[2017-09-21 21:02] LABS: VBG Ionized Calcium 1.08 mmol/L (1.15-1.35)
[2017-09-22] MEDS: Acetaminophen 325 MG TABLET PO PRN (00:36)
--- NOTE | 2017-09-22 03:08 | Pulmonology Progress Note ---
<Adriano Lane - Last Filed: 09/22/17 03:03> Date of Encounter: 09/22/17 Time of Encounter: 03:03 Assessment and Plan (1) Emphysematous cystitis Current Visit: No Status: Acute Patient has a history of ESBL Escherichia coli. Given the patient's clinical symptoms with his indwelling catheter shock requiring pressors the patient was treated with antibiotics. Patient's initial UA was less impressive. CT findings show gas throughout the anterior bladder wall concerning for emphysematous cystitis. Patient is clinically improving. We will continue ertapenem antibiotics. UA culture pending pending. (2) Hypoglycemia Current Visit: Yes Status: Acute Resolving. Likely multifactorial in the setting of infection and multiple diabetic medications. Patient's on sliding scale insulin and is tolerating a diabetic diet. (3) Anemia Current Visit: Yes Status: Acute Chronically anemic at baseline. Monitor for signs and symptoms of bleeding as the patient is on Eliquist. Qualifiers: Anemia type: unspecified type Qualified Code(s): D64.9 - Anemia, unspecified (4) Hypotension Current Visit: Yes Status: Acute Resolved. Patient no longer has a vasopressor requirement. Etiology is unclear however the patient does have history of ESBL Escherichia coli. CT scan of the chest abdomen pelvis had several abnormalities one of which included findings consistent with emphysematous cystitis. Qualifiers: Hypotension type: unspecified hypotension type Qualified Code(s): I95.9 - Hypotension, unspecified (5) Acute kidney injury superimposed on chronic kidney disease Current Visit: No Status: Acute Creatinine of 1.68 from 1.96 Improving. Etiology likely acute on chronic superimposed kidney injury. Appears adequately resuscitated. Plan -trend -Avoid nephrotoxins -Producing urine. (6) Diabetes mellitus Current Visit: No Status: Chronic On diabetic diet. Sliding scale insulin. Patient may need home medication adjustment prior to discharge given likely not enough adequate by mouth intake to balance the patient's diabetic meds. Qualifiers: Diabetes mellitus type: type 2 Diabetes mellitus penitentiary insulin use: with penitentiary use Diabetes mellitus complication status: with neurologic complications Diabetes mellitus complication detail: with polyneuropathy Qualified Code(s): E11.42 - Type 2 diabetes mellitus with diabetic polyneuropathy; Z79.4 - terminal manager (current) use of insulin; Z79.4 - terminal manager ( current) use of insulin; Z79.4 - terminal manager (current) use of insulin; Z79.4 - terminal manager (current) use of insulin (7) Elevated troponin Current Visit: Yes Status: Acute Adynamic in the setting of infection/CKD. No STEMI. Patient is on Eliquist for recurrent blood clots. (8) Pulmonary nodule Current Visit: Yes Status: Acute 4 mm noncalcified posterior basal left lobe nodule. If concerns for lung cancer patient would need a 12 month follow-up. (9) DVT prophylaxis Current Visit: No Status: Acute On Eliquist. Subjective Principal diagnosis: Shock, UTI, hypoglycemia Interval history: Patient seen and examined. Patient's resting comfortably sleeping. Over the past 24 hours the patient was weaned off his vasopressors. Patient's antibiotics were changed. Patient had a CT scan of the chest abdomen pelvis with several abnormalities one of which included gas through the anterior wall the urinary bladder concerning for emphysematous cystitis. Patient does have a history of the ESBL Escherichia coli. Patient is also tolerating an oral diet and is on sliding scale insulin. Objective PUL Vital signs: Last Vital Signs Temp 98.3 F 09/22/17 00:55 Pulse 74 09/22/17 03:00 Resp 16 09/22/17 03:00 BP 111/61 09/22/17 03:00 Pulse Ox 95 09/22/17 03:00 General appearance: no acute distress, asleep Eyes: nonicteric ENT: oropharynx moist Neck: supple Effort: normal Auscultation: bilateral: clear Cardiovascular: regular rate and rhythm Gastrointestinal: soft, non-tender Integumentary: normal Extremities: no cyanosis, edema (Chronic lower extremity edema) Musculoskeletal: no deformities non-focal exam Results - Laboratory Findings CBC and BMP: 09/21/17 02:54 09/21/17 13:00 PT/INR, D-dimer PT 13.7 Seconds (9.4-12.1) H 09/20/17 19:54 Abnormal lab findings: Abnormal lab results WBC 11.2 K/mcL (4.3-11.1) H 09/21/17 02:54 RBC 3.85 M/mcL (4.19-5.50) L 09/21/17 02:54 Hgb 11.7 g/dL (12.9-16.9) L 09/21/17 02:54 Hct 37.2 % (37.5-50.1) L 09/21/17 02:54 MCHC 31.5 g/dL (31.6-35.5) L 09/21/17 02:54 MPV 8.5 fL (9.4-12.4) L 09/21/17 02:54 Neutrophils # 9.0 K/mcL (1.6-8.9) H 09/21/17 02:54 PT 13.7 Seconds (9.4-12.1) H 09/20/17 19:54 Sodium 134 mEq/L (136-145) L 09/21/17 02:54 BUN 73 mg/dL (8-23) H 09/21/17 02:54 Creatinine 1.68 mg/dL (0.70-1.30) H 09/21/17 02:54 Est GFR ( Amer) 47 (> 60) L 09/21/17 02:54 Est GFR (Non-Af Amer) 39 (> 60) L 09/21/17 02:54 BUN/Creatinine Ratio 43 (6-26) H 09/21/17 02:54 Glucose 125 mg/dL (70-105) H 09/21/17 02:54 POC Glucose 207 mg/dL (70-99) H 09/21/17 19:44 Calculated Osmolality 301 (280-300) H 09/21/17 02:54 Calcium 7.7 mg/dL (8.6-10.3) L 09/21/17 02:54 Venous Ioniz Calcium 1.08 mmol/L (1.15-1.35) L 09/21/17 20:59 Phosphorus 5.8 mg/dL (2.7-4.5) H 09/21/17 02:54 Alkaline Phosphatase 248 Units/L (34-104) H 09/20/17 19:54 Troponin I 0.12 ng/mL (< 0.04) H* 09/21/17 13:00 Serum Total Protein 4.8 g/dL (6.4-8.9) L 09/20/17 19:54 Albumin 2.0 g/dL (3.5-5.7) L 09/20/17 19:54 Albumin/Globulin Ratio 0.7 (1.1-2.2) L 09/20/17 19:54 Urine Clarity Cloudy (Clear) A 09/20/17 20:51 Urine Blood Large (Negative) H 09/20/17 20:51 Ur Leukocyte Esterase Moderate (Negative) H 09/20/17 20:51 Urine Microscopic RBC TNTC per hpf (0-3) H 09/20/17 20:51 Urine Microscopic WBC 5-15 per hpf (0-3) H 09/20/17 20:51 Ur Squamous Epith Cells Moderate per lpf (None-Few) H 09/20/17 20:51 Ur Culture Indicated? YES (NO) A 09/20/17 20:51 U Benzodiazepines Scrn Positive ng/mL (Nvqrik=084) H 09/20/17 20:51 - Clinical Findings Intake & Output: Intake & Output 09/21/17 09/21/17 09/22/17 15:59 23:59 07:59 Intake Total 1881 / 1881 460 / 460 Output Total 750 / 750 400 / 400 1150 / 1150 Balance 1131 / 1131 60 / 60 -1150 / -1150 Weight 128.5 kg Consult Discharge Plan - Plan Referrals: Radha Jones, [employer] [Primary Care Provider] - <Batsheva Damico - Last Filed: 09/22/17 08:24> Date of Encounter: 09/22/17 Objective PUL Vital signs: Last Vital Signs Temp 97.0 F L 09/22/17 04:00 Pulse 70 09/22/17 08:00 Resp 18 09/22/17 08:00 BP 133/72 09/22/17 08:00 Pulse Ox 99 09/22/17 08:00 Results - Laboratory Findings CBC and BMP: 09/22/17 04:10 09/22/17 04:10 PT/INR, D-dimer PT 13.7 Seconds (9.4-12.1) H 09/20/17 19:54 Abnormal lab findings: Abnormal lab results RBC 3.73 M/mcL (4.19-5.50) L 09/22/17 04:10 Hgb 11.9 g/dL (12.9-16.9) L 09/22/17 04:10 Hct 36.3 % (37.5-50.1) L 09/22/17 04:10 MPV 8.6 fL (9.4-12.4) L 09/22/17 04:10 PT 13.7 Seconds (9.4-12.1) H 09/20/17 19:54 BUN 62 mg/dL (8-23) H 09/22/17 04:10 Creatinine 1.47 mg/dL (0.70-1.30) H 09/22/17 04:10 Est GFR ( Amer) 55 (> 60) L 09/22/17 04:10 Est GFR (Non-Af Amer) 46 (> 60) L 09/22/17 04:10 BUN/Creatinine Ratio 42 (6-26) H 09/22/17 04:10 Glucose 138 mg/dL (70-105) H 09/22/17 04:10 POC Glucose 111 mg/dL (70-99) H 09/22/17 07:18 Calculated Osmolality 302 (280-300) H 09/22/17 04:10 Calcium 7.9 mg/dL (8.6-10.3) L 09/22/17 04:10 Venous Ioniz Calcium 1.08 mmol/L (1.15-1.35) L 09/21/17 20:59 Phosphorus 5.8 mg/dL (2.7-4.5) H 09/21/17 02:54 Alkaline Phosphatase 248 Units/L (34-104) H 09/20/17 19:54 Troponin I 0.12 ng/mL (< 0.04) H* 09/21/17 13:00 Serum Total Protein 4.8 g/dL (6.4-8.9) L 09/20/17 19:54 Albumin 2.0 g/dL (3.5-5.7) L 09/20/17 19:54 Albumin/Globulin Ratio 0.7 (1.1-2.2) L 09/20/17 19:54 Urine Clarity Cloudy (Clear) A 09/20/17 20:51 Urine Blood Large (Negative) H 09/20/17 20:51 Ur Leukocyte Esterase Moderate (Negative) H 09/20/17 20:51 Urine Microscopic RBC TNTC per hpf (0-3) H 09/20/17 20:51 Urine Microscopic WBC 5-15 per hpf (0-3) H 09/20/17 20:51 Ur Squamous Epith Cells Moderate per lpf (None-Few) H 09/20/17 20:51 Ur Culture Indicated? YES (NO) A 09/20/17 20:51 U Benzodiazepines Scrn Positive ng/mL (Azyrqq=066) H 09/20/17 20:51 - Clinical Findings Intake & Output: Intake & Output 09/21/17 09/22/17 09/22/17 23:59 07:59 15:59 Intake Total 460 / 460 Output Total 400 / 400 1350 / 1350 Balance 60 / 60 -1350 / -1350 Weight 128.5 kg - Attending Attestation I examined this patient and my medical decision-making was reviewed with the Resident Physician. I agree with the documented findings, disposition and treatment plan as described except to the extent set forth below. Patient seen and examined. Labs, radiology, chart personally reviewed. Agree with resident's history and physical, assessment, plan with following comments: CLINICAL EDUCATION CONSULTANT: Patient follows commands, Pulmonary: Acceptable oxygenation and ventilation Cardiovascular: stable and off vasopressors GI: Nutrition per dietary and GI prophylaxis per routine Heme: DVT prophylaxis per routine ID: Continue antibiotics and plan to de-escalation Renal; urine out put and renal funtion reviewed Endorcine: blood glucose is monitored. His diabetic medication needs to be adjusted to avoid any hypoglycemia which is much more dangerous than hyperglycemia in this age group. Lines: all lines checked and no evidence of infections Skin: skin care to prevent pressure ulcers per nursing routine care Patient remained hemodynamically stable and can be transferred to the floor. Physical therapy is important.
[2017-09-22 04:27] LABS: Basophils # 0.1 K/mcL (0.0-0.2); Basophils % 0.5 %; Eosinophils # 0.4 K/mcL (0.0-0.6); Eosinophils % 3.9 %; Hematocrit 36.3 % (37.5-50.1); Hemoglobin 11.9 g/dL (12.9-16.9); Lymphocytes # 0.6 K/mcL (0.6-4.6); Lymphocytes % 5.7 %; Mean Corpuscular HGB Conc 32.8 g/dL (31.6-35.5); Mean Corpuscular Hemoglobin 31.9 pg (28.0-33.3); Mean Corpuscular Volume 97.3 fL (83.0-100.0); Mean Platelet Volume 8.6 fL (9.4-12.4); Monocytes # 0.7 K/mcL (0.0-1.3); Monocytes % 6.9 %; Neutrophils # 8.1 K/mcL (1.6-8.9); Platelet Count 179 K/mcL (140-400); Red Blood Count 3.73 M/mcL (4.19-5.50); Red Cell Distribution Width 13.6 % (11.5-14.5)
[2017-09-22 04:45] LABS: Calcium 7.9 mg/dL (8.6-10.3); Potassium 4.6 mEq/L (3.5-5.1)
[2017-09-22] MEDS: WATER IVC SCH (04:57)
[2017-09-22] MEDS: D5 IVC SCH (04:57)
[2017-09-22] MEDS: NACL IVC SCH (04:57)
[2017-09-22] MEDS: DEXTROSE IVC SCH (04:57)
[2017-09-22] MEDS: Insulin LISPRO 300 UNITS/3 ML VIAL SQ SCH ×3 (07:18→17:03)
[2017-09-22] MEDS: Aspirin Enteric Coated 81 MG Tablet PO SCH ×2 (07:59→09:03)
[2017-09-22] MEDS: Apixaban 5 MG TABLET PO SCH ×3 (07:59→22:19)
[2017-09-22] MEDS: Furosemide 40 MG TABLET PO SCH ×2 (07:59→09:03)
[2017-09-22] MEDS ORDERED: Acetaminophen 325 MG TABLET PO PRN (08:33)
[2017-09-22] MEDS ORDERED: Naloxone 0.4 MG/ML INJ IVP PRN (08:33)
[2017-09-22] MEDS ORDERED: *HR* Dextrose 50 % in Water (Syg) 50 ML SYRINGE IVP PRN (08:33)
[2017-09-22] MEDS ORDERED: Dextrose Gel 15 GM/37.5 ML TUBE PO PRN ×2 (08:33)
[2017-09-22] MEDS ORDERED: D5% in Water 1,000 ML IVC PRN (08:33)
[2017-09-22] MEDS: Leptospermum Honey GEL 1 APPL/5 ML MLS TP SCH ×2 (17:04→22:23)
[2017-09-23 05:29] LABS: Basophils % 0.4 %; Eosinophils # 0.1 K/mcL (0.0-0.6); Eosinophils % 1.1 %; Hematocrit 35.5 % (37.5-50.1); Hemoglobin 11.8 g/dL (12.9-16.9); Immature Granulocytes % 1.1 % (0-4); Lymphocytes # 0.6 K/mcL (0.6-4.6); Lymphocytes % 6.3 %; Mean Corpuscular HGB Conc 33.2 g/dL (31.6-35.5); Mean Corpuscular Hemoglobin 31.9 pg (28.0-33.3); Mean Corpuscular Volume 95.9 fL (83.0-100.0); Mean Platelet Volume 8.5 fL (9.4-12.4); Monocytes # 0.8 K/mcL (0.0-1.3); Monocytes % 8.2 %; Neutrophils # 8.1 K/mcL (1.6-8.9); Platelet Count 198 K/mcL (140-400); Red Cell Distribution Width 13.6 % (11.5-14.5); Segmented Neutrophils % 82.9 %
[2017-09-23 05:54] LABS: BUN/Creatinine Ratio 47 (6-26); Blood Urea Nitrogen 61 mg/dL (8-23); Calcium 7.8 mg/dL (8.6-10.3); Carbon Dioxide 27 mEq/L (23-29); Chloride 102 mEq/L (98-107); Glucose 139 mg/dL (70-105); Osmolality,Calculated 302 (280-300); Potassium 4.7 mEq/L (3.5-5.1); Sodium 136 mEq/L (136-145); eGFR For African Americans > 60 (> 60); eGFR For Non-African Americans 52 (> 60)
[2017-09-23] MEDS: Insulin LISPRO 300 UNITS/3 ML VIAL SQ SCH ×3 (07:54→16:34)
[2017-09-23] MEDS: Furosemide 40 MG TABLET PO SCH (10:18)
[2017-09-23] MEDS: Aspirin Enteric Coated 81 MG Tablet PO SCH (10:18)
[2017-09-23] MEDS: Leptospermum Honey GEL 1 APPL/5 ML MLS TP SCH (10:18)
[2017-09-23] MEDS: Apixaban 5 MG TABLET PO SCH ×2 (10:18→21:20)
--- NOTE | 2017-09-23 13:49 | Internal Med Progress Note ---
Date of Encounter: 09/23/17 Time of Encounter: 13:47 - Assessment and plan (1) Altered mental status Current Visit: Yes Status: Acute Assessment and plan: Hypoglycemic encephalopathy: Seems to be resolved at this point. - Likely from hypoglycemia with multiple diabetic PO meds and had poor appetite recently. PO medications held and patient being monitored. He is on sliding scale and glucose controlled. - Initially there was some suspicion that patient was having AMS from UTI and so he was emperically treated. UA and urine cultures were negative and so antibiotics were discontinued. Will continue to monitor patient off antibiotics. Has remained afebrile as well with normal white count. Qualifiers: Altered mental status type: unspecified Qualified Code(s): R41.82 - Altered mental status, unspecified (2) Anemia Current Visit: Yes Status: Acute Qualifiers: Anemia type: unspecified type Qualified Code(s): D64.9 - Anemia, unspecified (3) Elevated troponin Current Visit: Yes Status: Acute Assessment and plan: Adynamic in the setting of infection/CKD. No STEMI. Patient is on Eliquis for recurrent blood clots. (4) Hypoglycemia Current Visit: Yes Status: Acute Assessment and plan: Patient on multiple PO medications including sulfonyluria and had renal failure which can worsen symptoms. Renal function improving. PO meds held and patient is on ISS. Continue to monitor. (5) Hypotension Current Visit: Yes Status: Acute Assessment and plan: Resolved with IV fluid hydration. Was likely dehydration and poor PO intake. Lasix PO home medication was resumed yesterday morning and BP is acceptable. Qualifiers: Hypotension type: unspecified hypotension type Qualified Code(s): I95.9 - Hypotension, unspecified (6) Pulmonary nodule Current Visit: Yes Status: Acute Assessment and plan: Recommend follow-up for this as outpatient. (7) Acute kidney injury superimposed on chronic kidney disease Current Visit: No Status: Acute (8) Anxiety Current Visit: No Status: Acute (9) DVT prophylaxis Current Visit: No Status: Acute (10) Leg edema Current Visit: No Status: Acute Assessment and plan: Chronic (11) Thyroid nodule Current Visit: Yes Status: Acute Assessment and plan: Recommend that patient has outpatient follow-up for this. - Time Spent With Patient Total time spent is greater than 50% in coordination of care (as documented) at patient's floor/unit and/or counseling patient: - Subjective Interval history: No complaints, no acute events. Patient able to recall events of today and yesterday. Denies dizzines,s diaphoresis, palpitations, fevers/chills. Finished lunch but states having some appetite issues. - Constitutional Vitals: Temp Pulse Resp BP Pulse Ox 97.8 F 69 18 146/79 96 09/23/17 11:30 09/23/17 11:30 09/23/17 11:30 09/23/17 11:30 09/23/17 11:30 General appearance: Present: A&O X 2, pleasant, answers questions appropriately - Head Head exam: Present: atraumatic, normocephalic - Eye Eye exam: Present: PERRL, conjuntiva pink, sclera anicteric Pupils: Present: PERRL - Neck Neck exam general surgery: Present: supple, trachea midline. Absent: lymphadenopathy - Respiratory Respiratory exam: Present: CTAB. Absent: accessory muscle use, rales, rhonchi, wheezes - Cardiovascular Cardiovascular exam: Present: RRR, +S1, +S2. Absent: diastolic murmur, gallop, rubs, systolic murmur - GI/Abdominal GI/Abdominal exam: Present: normal bowel sounds, soft, no peritoneal signs. Absent: distended, tenderness - Extremities Exam Extremities exam: Present: pedal edema, warm, radial pulses palpable and symmetrical. Absent: calf tenderness, cyanotic - Neurological Exam Neurological exam: Present: CN II-XII intact, oriented X3, no focal deficits. Absent: pronater drift, facial droop, speech deficit - Skin Skin exam: Present: dry, intact Internal Medicine: Result - Labs CBC & Chem 7: 09/23/17 04:46 09/23/17 04:46 Labs: Short CBC 09/23/17 Range/Units 04:46 WBC 9.8 (4.3-11.1) K/mcL Hgb 11.8 L (12.9-16.9) g/dL Hct 35.5 L (37.5-50.1) % Plt Count 198 (140-400) K/mcL Neutrophils # 8.1 (1.6-8.9) K/mcL BMP 09/23/17 04:46 Sodium 136 Potassium 4.7 Chloride 102 Carbon Dioxide 27 BUN 61 H Creatinine 1.31 H Glucose 139 H Calcium 7.8 L - ABG Interpretation ABG results: PT/INR, D-dimer PT 13.7 Seconds (9.4-12.1) H 09/20/17 19:54 Consult Discharge Plan - Plan Referrals: Radha Jones, [employer] [facility] [Primary Care Provider] -
[2017-09-23] MEDS: Gabapentin 300 MG CAPSULE PO SCH (21:20)
[2017-09-23] MEDS: diazePAM 2 MG TABLET PO SCH (21:20)
[2017-09-24 05:23] LABS: Basophils # 0.1 K/mcL (0.0-0.2); Basophils % 0.6 %; Eosinophils # 0.3 K/mcL (0.0-0.6); Hematocrit 34.7 % (37.5-50.1); Hemoglobin 11.3 g/dL (12.9-16.9); Lymphocytes # 0.7 K/mcL (0.6-4.6); Lymphocytes % 7.5 %; Mean Corpuscular HGB Conc 32.6 g/dL (31.6-35.5); Mean Corpuscular Hemoglobin 31.2 pg (28.0-33.3); Mean Corpuscular Volume 95.9 fL (83.0-100.0); Mean Platelet Volume 8.8 fL (9.4-12.4); Monocytes # 0.9 K/mcL (0.0-1.3); Monocytes % 8.9 %; Neutrophils # 7.6 K/mcL (1.6-8.9); Platelet Count 192 K/mcL (140-400); Red Blood Count 3.62 M/mcL (4.19-5.50); Red Cell Distribution Width 13.8 % (11.5-14.5)
[2017-09-24 05:32] LABS: BUN/Creatinine Ratio 42 (6-26); Blood Urea Nitrogen 53 mg/dL (8-23); Calcium 7.8 mg/dL (8.6-10.3); Carbon Dioxide 30 mEq/L (23-29); Chloride 102 mEq/L (98-107); Glucose 156 mg/dL (70-105); Osmolality,Calculated 302 (280-300); Potassium 4.2 mEq/L (3.5-5.1); Sodium 137 mEq/L (136-145); eGFR For African Americans > 60 (> 60); eGFR For Non-African Americans 55 (> 60)
[2017-09-24] MEDS: Leptospermum Honey GEL 1 APPL/5 ML MLS TP SCH ×3 (05:52→20:19)
[2017-09-24] MEDS: Insulin LISPRO 300 UNITS/3 ML VIAL SQ SCH ×3 (07:50→17:31)
[2017-09-24] MEDS: diazePAM 2 MG TABLET PO SCH (09:49)
[2017-09-24] MEDS: Cholecalciferol (D-3) 1,000 UNIT TABLET PO SCH (09:49)
[2017-09-24] MEDS: Gabapentin 300 MG CAPSULE PO SCH ×2 (09:50→20:18)
[2017-09-24] MEDS: Apixaban 5 MG TABLET PO SCH ×2 (09:50→20:18)
[2017-09-24] MEDS: Aspirin Enteric Coated 81 MG Tablet PO SCH (09:50)
[2017-09-24] MEDS: Furosemide 40 MG TABLET PO SCH (09:50)
--- NOTE | 2017-09-24 11:31 | Discharge Summary ---
- NOTES TO OUTPATIENT PROVIDER Notes to Outpatient Provider: Follow-up with primary care in 2-3 days. Review glucose medications. Orders not resulted at time of discharge: Pending orders 09/25/17 04:00 BMP [Basic Metabolic Panel] AM 0400 Complete Blood Count [HEME] AM 0400 09/26/17 04:00 BMP [Basic Metabolic Panel] AM 0400 Complete Blood Count [HEME] AM 0400 Date of Encounter: 09/24/17 Time of Encounter: 11:32 - Discharge Diagnosis (1) Altered mental status Priority: Primary Status: Resolved Assessment and Plan: Likely hypoglycemia (decreased appetite recently) and polypharmacy. Oral hypoglycemics will be changed at time of discharge. Qualifiers: Altered mental status type: unspecified Qualified Code(s): R41.82 - Altered mental status, unspecified (2) Anemia Priority: Secondary Status: Acute Qualifiers: Anemia type: unspecified type Qualified Code(s): D64.9 - Anemia, unspecified (3) Elevated troponin Priority: Secondary Status: Acute (4) Hypoglycemia Priority: Secondary Status: Acute (5) Hypotension Priority: Secondary Status: Acute Qualifiers: Hypotension type: unspecified hypotension type Qualified Code(s): I95.9 - Hypotension, unspecified (6) Pulmonary nodule Priority: Secondary Status: Acute (7) Acute kidney injury superimposed on chronic kidney disease Priority: Secondary Status: Acute (8) Anxiety Priority: Secondary Status: Acute (9) DVT prophylaxis Priority: Secondary Status: Acute (10) Leg edema Priority: Secondary Status: Acute (11) Thyroid nodule Priority: Secondary Status: Acute Hospital course: Patient is an 86-year-old male presented to [facility] ED with a chief complaint of unresponsiveness. He is known diabetic and hypertension patient on medication for this, also has systolic heart failure. He was recently admitted for ESBL UTI 2 weeks ago. Patient had been eating dinner and was fine initially but then when they came back to get the tray, he was unresponsive. He had his eyes open but just was not talking to anybody. When EMS arrived, they checked his glucose which was 57. They started him on a D10 drip and when patient arrived, he was more alert and able to answer questions. Patient did have a heart catheterization last week by Dr. Finch. Was told that he had only minimal blockages and no stents were placed. Patient has been doing well since going to the [place] [facility]. No recent cough, chest pain, difficulty breathing, abdominal pain, problems with urination or bowel movements. Patient on arrival had hypotension with BP as low as 72/52 with normal hr of 73. He required a D10 drip and levophed and both glucose and BP improved. CT of head was stable, he had no EKG changes, CXR was unremarkable. Due to need for pressors and persistent hypoglycemia needing drip, patient was admitted to ICU. He had elevated creatinine of 1.96, which is above his baseline. He was emperically treated with meropenem due to his rececent UTI. IV fluids did improve hypotension and kidney injury. UTI did not seem to be cause of patient's altered mental status, urine cultures were negative and so he was discontinued off of antibiotics and monitored. He had no acute issues off of antibiotics remained afebrile and had no leukocytosis and mental status was normal. Patient overall improved after holding BP medications and diabetes medications. He was discharged to SNF in stable condition. Lisinopril and Cozaar held on discharge because BP was within normal limits without antihypertensive medications. Patient was discharged on insulin sliding scale and no oral diabetic medications and glucose ranged 100-190 without hypoglycemic episodes. - Time Spent with Patient Total time spent providing and/or coordinating discharge services: - Discharge Medications Prescriptions: Insulin LISPRO [HumaLOG] 0 units SQ TIDAC #1 each Home Medications: Tamsulosin [Flomax] 0.4 mg PO DAILY capsule 08/06/15 [Rx] Atorvastatin [Lipitor] 40 mg PO DAILY 09/07/15 [History] Cholecalciferol (D-3) [Vitamin D] 2,000 unit PO DAILY 05/09/17 [History] Furosemide [Lasix] 40 mg PO DAILY 07/27/17 [History] Apixaban [Eliquis] 2.5 mg PO BID #60 tablet 07/30/17 [Rx] Aspirin Enteric Coated [Aspirin EC] 81 mg PO DAILY #30 tablet. 07/30/17 [Rx] Ondansetron [Zofran ODT] 8 mg PO TID PRN 09/01/17 [History] PARoxetine HCl [Paroxetine HCl] 10 mg PO QAM 09/01/17 [History] Gabapentin [Neurontin] 300 mg PO BID 7 Days #14 capsule 09/06/17 [Rx] Acetaminophen [Tylenol Arthritis] 650 mg PO TID 09/13/17 [History] Docusate [Colace] 100 mg PO BID 09/13/17 [History] Insulin LISPRO [HumaLOG] 0 units SQ TIDAC #1 each 09/24/17 [Rx] Allergies/Adverse Reactions: 3 Allergy/AdvReac Type Severity Reaction Status Date / Time No Known Allergies Allergy Verified 09/14/17 16:30 Date of admission: 09/21/17 00:42 Primary care physician: Radha Jones CNP Consults: 09/21/17 02:47 Consult to Critical Care [CONS] Routine Consulting Provider: Pulm Crit [facility] Sleep Reena Reason for Consult: Hemodynamic management Call Completed: No 09/21/17 09:49 Consult to Labor Relations Specialist [CONS] Routine Reason for SW Consult: discharge placement planning Consult to Wound Care [CONS] Routine Reason for Consult: decubitus ulcer Call Completed: No 09/22/17 08:18 Consult to Occupational Therapy [CONS] Routine Comment: Evaluate, develop and implement POC Reason for Consult: mobility Does patient have active BEDREST order?: No Is patient medically & hemodynamically stable?: Yes Patient assessed for mobility or mobilized this visit?: No Consult to Physical Therapy [CONS] Routine Comment: Evaluate, develop and implement POC Reason for Consult: mobility Does patient have active BEDREST order?: No Is patient medically & hemodynamically stable?: Yes Patient assessed for mobility or mobilized this visit?: No 09/23/17 12:15 consult to silverware buffer [Consult to Nutrition] [CONS] Routine Comment: Consulting Provider: NUTRITION Reason for Dietary Consult: PO Supplementation Discharging clinician: Daisy Vazquez - Constitutional Vitals: Temp Pulse Resp BP Pulse Ox 98.0 F 72 18 116/60 95 09/24/17 06:52 09/24/17 06:52 09/24/17 06:52 09/24/17 06:52 09/24/17 06:52 General appearance: Present: A&O X 2, pleasant, answers questions appropriately - Head Head exam: Present: atraumatic, normocephalic - Eye Eye exam: Present: PERRL, conjuntiva pink, sclera anicteric Pupils: Present: PERRL - Neck Neck exam general surgery: Present: supple, trachea midline. Absent: lymphadenopathy - Respiratory Respiratory exam: Present: CTAB. Absent: accessory muscle use, rales, rhonchi, wheezes - Cardiovascular Cardiovascular exam: Present: RRR, +S1, +S2. Absent: diastolic murmur, gallop, rubs, systolic murmur - GI/Abdominal GI/Abdominal exam: Present: normal bowel sounds, soft, no peritoneal signs. Absent: distended, tenderness - Extremities Exam Extremities exam: Present: pedal edema, warm, radial pulses palpable and symmetrical. Absent: calf tenderness, cyanotic - Neurological Exam Neurological exam: Present: CN II-XII intact, oriented X3, no focal deficits. Absent: pronater drift, facial droop, speech deficit - Skin Skin exam: Present: dry, intact - Patient Status Disposition: Transfer SNF Condition: Fair Functional capacity at discharge: uses cane/walker Overall status at discharge: patient is progressing back to baseline - Discharge Instructions Follow Up With: Radha Jones, [employer] [Primary Care Provider] - - Diet and Activity Activity: as per physical therapy Diet: advance to your usual diet
--- NOTE | 2017-09-24 11:57 | Physician Discharge Referral ---
ExtendedCare Referral Info Institutional Level of Care: Skilled - Diagnosis (1) Altered mental status Priority: Primary Status: Resolved (2) Anemia Priority: Secondary Status: Acute (3) Elevated troponin Priority: Secondary Status: Acute (4) Hypoglycemia Priority: Secondary Status: Acute (5) Hypotension Priority: Secondary Status: Acute (6) Pulmonary nodule Priority: Secondary Status: Acute (7) Acute kidney injury superimposed on chronic kidney disease Priority: Secondary Status: Acute (8) Anxiety Priority: Secondary Status: Acute (9) DVT prophylaxis Priority: Secondary Status: Acute (10) Leg edema Priority: Secondary Status: Acute (11) Thyroid nodule Priority: Secondary Status: Acute - Transfer Medications Prescriptions: Insulin LISPRO [HumaLOG] 0 units SQ TIDAC #1 each Home Medications: Tamsulosin [Flomax] 0.4 mg PO DAILY capsule 08/06/15 [Rx] Atorvastatin [Lipitor] 40 mg PO DAILY 09/07/15 [History] Cholecalciferol (D-3) [Vitamin D] 2,000 unit PO DAILY 05/09/17 [History] Furosemide [Lasix] 40 mg PO DAILY 07/27/17 [History] Apixaban [Eliquis] 2.5 mg PO BID #60 tablet 07/30/17 [Rx] Aspirin Enteric Coated [Aspirin EC] 81 mg PO DAILY #30 tablet. 07/30/17 [Rx] Ondansetron [Zofran ODT] 8 mg PO TID PRN 09/01/17 [History] PARoxetine HCl [Paroxetine HCl] 10 mg PO QAM 09/01/17 [History] Gabapentin [Neurontin] 300 mg PO BID 7 Days #14 capsule 09/06/17 [Rx] Acetaminophen [Tylenol Arthritis] 650 mg PO TID 09/13/17 [History] Docusate [Colace] 100 mg PO BID 09/13/17 [History] Insulin LISPRO [HumaLOG] 0 units SQ TIDAC #1 each 09/24/17 [Rx] Allergies/Adverse Reactions: 3 Allergy/AdvReac Type Severity Reaction Status Date / Time No Known Allergies Allergy Verified 09/14/17 16:30 - Respiratory Orders Smoking Cessation: Smoking cessation has been advised. For more information, call the [place] Tobacco Quit Line at 4-860-NMGD-NOW. - Advance Directives Code Status: Full Code - Mobility Orders Other (as per physical therapy) - Rehabiliation Orders Rehab Orders: Evaluation for Physical Therapy, Evaluation for Occupational Therapy - Treatments Skin tear care topically daily PRN per policy, May check for fecal impaction rectally daily PRN - Diet Orders No Concentrated Sweets, Cardiac CERTIFICATION: I certify that the transfer of the above named patient to an Extended Care Facility is necessary for the continuing treatment of the diagnosis listed. The above information is true and accurate reflection of patient's current condition. Confidential - Redisclosure prohibited without a patient's written consent.
[2017-09-25 06:57] LABS: Basophils % 0.5 %; Eosinophils # 0.5 K/mcL (0.0-0.6); Eosinophils % 5.5 %; Hematocrit 32.8 % (37.5-50.1); Hemoglobin 10.7 g/dL (12.9-16.9); Immature Granulocytes % 0.9 % (0-4); Lymphocytes # 0.7 K/mcL (0.6-4.6); Lymphocytes % 7.8 %; Mean Corpuscular HGB Conc 32.6 g/dL (31.6-35.5); Mean Corpuscular Hemoglobin 31.1 pg (28.0-33.3); Mean Corpuscular Volume 95.3 fL (83.0-100.0); Mean Platelet Volume 8.5 fL (9.4-12.4); Monocytes # 0.8 K/mcL (0.0-1.3); Monocytes % 9.5 %; Neutrophils # 6.5 K/mcL (1.6-8.9); Platelet Count 169 K/mcL (140-400); Red Blood Count 3.44 M/mcL (4.19-5.50); Red Cell Distribution Width 13.8 % (11.5-14.5); Segmented Neutrophils % 75.8 %
[2017-09-25 07:23] LABS: BUN/Creatinine Ratio 43 (6-26); Blood Urea Nitrogen 52 mg/dL (8-23); Calcium 7.7 mg/dL (8.6-10.3); Carbon Dioxide 29 mEq/L (23-29); Chloride 103 mEq/L (98-107); Glucose 153 mg/dL (70-105); Osmolality,Calculated 301 (280-300); Sodium 137 mEq/L (136-145); eGFR For African Americans > 60 (> 60); eGFR For Non-African Americans 58 (> 60)
[2017-09-25 08:05] LABS: Potassium 4.2 mEq/L (3.5-5.1)
[2017-09-25] MEDS: Insulin LISPRO 300 UNITS/3 ML VIAL SQ SCH ×3 (10:03→17:05)
[2017-09-25] MEDS: Gabapentin 300 MG CAPSULE PO SCH ×2 (10:09→20:41)
[2017-09-25] MEDS: Furosemide 40 MG TABLET PO SCH (10:09)
[2017-09-25] MEDS: Cholecalciferol (D-3) 1,000 UNIT TABLET PO SCH (10:09)
[2017-09-25] MEDS: Apixaban 5 MG TABLET PO SCH ×2 (10:09→20:41)
[2017-09-25] MEDS: Leptospermum Honey GEL 1 APPL/5 ML MLS TP SCH ×2 (10:10→20:41)
[2017-09-25] MEDS: Aspirin Enteric Coated 81 MG Tablet PO SCH (10:10)
--- NOTE | 2017-09-25 15:38 | Internal Med Progress Note ---
Date of Encounter: 09/25/17 Time of Encounter: 15:37 - Assessment and plan (1) Altered mental status Current Visit: Yes Status: Resolved Assessment and plan: Likely hypoglycemia (decreased appetite recently) and polypharmacy. Sliding scale on discharge to SNF Pending placement Qualifiers: Altered mental status type: unspecified Qualified Code(s): R41.82 - Altered mental status, unspecified (2) Anemia Current Visit: Yes Status: Acute Qualifiers: Anemia type: unspecified type Qualified Code(s): D64.9 - Anemia, unspecified (3) Elevated troponin Current Visit: Yes Status: Acute (4) Hypoglycemia Current Visit: Yes Status: Acute (5) Hypotension Current Visit: Yes Status: Acute Qualifiers: Hypotension type: unspecified hypotension type Qualified Code(s): I95.9 - Hypotension, unspecified (6) Pulmonary nodule Current Visit: Yes Status: Acute (7) Acute kidney injury superimposed on chronic kidney disease Current Visit: No Status: Acute (8) Anxiety Current Visit: No Status: Acute (9) DVT prophylaxis Current Visit: No Status: Acute (10) Leg edema Current Visit: No Status: Acute (11) Thyroid nodule Current Visit: Yes Status: Acute - Time Spent With Patient Total time spent is greater than 50% in coordination of care (as documented) at patient's floor/unit and/or counseling patient: - Subjective Interval history: Patient seen and examined this morning. No issues, no altered mental status episodes. Pending placement. - Constitutional Vitals: Temp Pulse Resp BP Pulse Ox 97.9 F 69 18 126/73 94 09/25/17 12:00 09/25/17 12:00 09/25/17 12:00 09/25/17 12:00 09/25/17 12:00 General appearance: Present: A&O X 2, pleasant, answers questions appropriately - Head Head exam: Present: atraumatic, normocephalic - Eye Eye exam: Present: PERRL, conjuntiva pink, sclera anicteric Pupils: Present: PERRL - Neck Neck exam general surgery: Present: supple, trachea midline. Absent: lymphadenopathy - Respiratory Respiratory exam: Present: CTAB. Absent: accessory muscle use, rales, rhonchi, wheezes - Cardiovascular Cardiovascular exam: Present: RRR, +S1, +S2. Absent: diastolic murmur, gallop, rubs, systolic murmur - GI/Abdominal GI/Abdominal exam: Present: normal bowel sounds, soft, no peritoneal signs. Absent: distended, tenderness - Extremities Exam Extremities exam: Present: warm, radial pulses palpable and symmetrical. Absent : calf tenderness, cyanotic, pedal edema - Neurological Exam Neurological exam: Present: CN II-XII intact, oriented X3, no focal deficits. Absent: pronater drift, facial droop, speech deficit - Skin Skin exam: Present: dry, intact Internal Medicine: Result - Labs CBC & Chem 7: 09/25/17 06:48 09/25/17 06:48 Labs: Short CBC 09/25/17 Range/Units 06:48 WBC 8.6 (4.3-11.1) K/mcL Hgb 10.7 L (12.9-16.9) g/dL Hct 32.8 L (37.5-50.1) % Plt Count 169 (140-400) K/mcL Neutrophils # 6.5 (1.6-8.9) K/mcL BMP 09/25/17 06:48 Sodium 137 Potassium 4.2 Chloride 103 Carbon Dioxide 29 BUN 52 H Creatinine 1.20 Glucose 153 H Calcium 7.7 L - ABG Interpretation ABG results: PT/INR, D-dimer PT 13.7 Seconds (9.4-12.1) H 09/20/17 19:54 Consult Discharge Plan - Plan Referrals: Radha Jones, [facility] [Primary Care Provider] - Prescriptions: Insulin LISPRO [HumaLOG] 0 units SQ TIDAC #1 each
[2017-09-26] MEDS: Insulin LISPRO 300 UNITS/3 ML VIAL SQ SCH ×2 (08:01→12:42)
[2017-09-26] MEDS: Apixaban 5 MG TABLET PO SCH (10:07)
[2017-09-26] MEDS: Gabapentin 300 MG CAPSULE PO SCH (10:08)
[2017-09-26] MEDS: Aspirin Enteric Coated 81 MG Tablet PO SCH (10:09)
[2017-09-26] MEDS: Cholecalciferol (D-3) 1,000 UNIT TABLET PO SCH (10:09)
[2017-09-26] MEDS: Furosemide 40 MG TABLET PO SCH (10:09)
[2017-09-26] MEDS: Leptospermum Honey GEL 1 APPL/5 ML MLS TP SCH (10:10)
--- NOTE | 2017-09-26 10:22 | Internal Med Progress Note ---
Date of Encounter: 09/26/17 Time of Encounter: 10:20 - Assessment and plan (1) Acute kidney injury superimposed on chronic kidney disease Current Visit: No Status: Acute Assessment and plan: Resolved. Creatinine currently 1.2. Monitor. (2) DVT prophylaxis Current Visit: No Status: Acute (3) Leg edema Current Visit: No Status: Acute Assessment and plan: Chronic (4) Anxiety Current Visit: No Status: Acute (5) Altered mental status Current Visit: Yes Status: Resolved Assessment and plan: Likely hypoglycemia (decreased appetite recently) and polypharmacy. Sliding scale on discharge to SNF Pending placement Qualifiers: Altered mental status type: unspecified Qualified Code(s): R41.82 - Altered mental status, unspecified (6) Hypotension Current Visit: Yes Status: Acute Assessment and plan: Resolved with IV fluid hydration. Was likely dehydration and poor PO intake. Lasix PO home medication was resumed yesterday morning and BP is acceptable. 09/26: vitals stable Qualifiers: Hypotension type: unspecified hypotension type Qualified Code(s): I95.9 - Hypotension, unspecified (7) Anemia Current Visit: Yes Status: Acute Qualifiers: Anemia type: unspecified type Qualified Code(s): D64.9 - Anemia, unspecified (8) Elevated troponin Current Visit: Yes Status: Acute (9) Hypoglycemia Current Visit: Yes Status: Acute Assessment and plan: Patient on multiple PO medications including sulfonyluria and had renal failure which can worsen symptoms. Renal function improving. PO meds held and patient is on ISS. Continue to monitor. (10) Pulmonary nodule Current Visit: Yes Status: Acute Assessment and plan: Recommend follow-up for this as outpatient. (11) Thyroid nodule Current Visit: Yes Status: Acute Assessment and plan: Recommend that patient has outpatient follow-up for this. - Time Spent With Patient Total time spent is greater than 50% in coordination of care (as documented) at patient's floor/unit and/or counseling patient: 25 - 35 minutes - Subjective Interval history: Please see full discharge summary dictated on 09/24/2017. Patient is feeling well without any complaints and anxious to go to his rehabilitation facility. - Constitutional Vitals: Temp Pulse Resp BP Pulse Ox 97.6 F 70 16 130/72 96 09/26/17 06:39 09/26/17 06:39 09/26/17 06:39 09/26/17 06:39 09/26/17 06:39 General appearance: Present: A&O X 2, pleasant, answers questions appropriately - Head Head exam: Present: atraumatic, normocephalic - Respiratory Respiratory exam: Present: CTAB. Absent: accessory muscle use, rales, rhonchi, wheezes - Cardiovascular Cardiovascular exam: Present: RRR, +S1, +S2. Absent: diastolic murmur, gallop, rubs, systolic murmur - Extremities Exam Extremities exam: Present: pedal edema, warm, radial pulses palpable and symmetrical. Absent: calf tenderness, cyanotic - Neurological Exam Neurological exam: Present: CN II-XII intact, oriented X3, no focal deficits. Absent: pronater drift, facial droop, speech deficit Internal Medicine: Result - Labs CBC & Chem 7: 09/25/17 06:48 09/25/17 06:48 - ABG Interpretation ABG results: PT/INR, D-dimer PT 13.7 Seconds (9.4-12.1) H 09/20/17 19:54 Consult Discharge Plan - Plan Referrals: Rahda Jones, [employer] [Primary Care Provider] - Prescriptions: Insulin LISPRO [HumaLOG] 0 units SQ TIDAC #1 each
[2017-09-26 11:47] VITALS: BP 130/73
[2017-09-26] MEDS ORDERED: Insulin LISPRO 300 UNITS/3 ML VIAL SQ SCH (21:00)
== END 2017-09-26 16:13 | DRG 637 ==
LOC: EMEROO 19:37 → ICNU 09-21 00:42 → 3ANU 09-22 11:00
PROVIDERS: ADMIT Internal Medicine; ATTEND Internal Medicine

== ENCOUNTER 2017-10-03 18:00 | Inpatient (IN) ==
[2017-10-03] MEDS ORDERED: 0.9 % Sodium Chloride 1,000 ML IVC ONE (18:04)
[2017-10-03] MEDS ORDERED: Hydrocortisone Sodium Succ 100 MG/2 ML VIAL IVP ONE (18:05)
[2017-10-03] MEDS ORDERED: 0.9 % Sodium Chloride 1,000 ML ONE (18:06)
[2017-10-03 18:21] LABS: Bilirubin,Urine Negative (Negative); Blood,Urine Large (Negative); Clarity,Urine Cloudy (Clear); Color,Urine Yellow (Yellow); Glucose,Urine (UA) Normal (Normal); Ketones,Urine Negative (Negative); Leukocyte Esterase,Urine Large (Negative); Nitrite,Urine Negative (Negative); PH,Urine 5.5 pH Units (5.0-8.0); Protein,Urine 30 mg/dL (Neg-Trace); Specific Gravity,Urine 1.019 (1.010-1.025); Urobilinogen,Urine Normal (Normal)
[2017-10-03 18:23] LABS: Bacteria,Urine Many per hpf (None-Few); Hyaline Casts,Urine None Seen per lpf (None-Few); RBC,Urine 15-30 per hpf (0-3); Squamous Epithelial Cell,Urine Few per lpf (None-Few); WBC,Urine 30-50 per hpf (0-3)
[2017-10-03 18:29] LABS: ABG Base Excess -1 mEq/L (-2 to 3); ABG HCO3 24 mEq/L (21-27); ABG Oxygen Saturation 98 % (95-98); ABG PCO2 43 mmHg (35-45); ABG PH 7.37 pH Units (7.32-7.45); ABG PO2 107 mmHg (85-104); ABG TCO2 26 mEq/L (20-26)
[2017-10-03] MEDS ORDERED: Piperacillin/Tazobactam 3.375 GM in 0.9 % Sodium Chloride Mini Bag 100 ML IVPB ONE (18:56)
--- NOTE | 2017-10-03 19:07 | Emergency Department Note ---
Disposition Clinical Impression: Leg edema Volume overload Qualifiers: Hypervolemia type: other Qualified Code(s): E87.79 - Other fluid overload Hypotension Qualifiers: Hypotension type: unspecified hypotension type Qualified Code(s): I95.9 - Hypotension, unspecified Congestive heart failure Qualifiers: Heart failure type: other Qualified Code(s): I50.9 - Heart failure, unspecified Disposition: Admitted As Inpatient Condition: Critical Referrals: Radha Jones, [employer] [Primary Care Provider] - General Adult HPI - General Chief complaint: ED Shortness of Breath/Dyspnea Stated complaint: unresponsive Time Seen by Provider: 10/03/17 18:03 Source: patient, EMS Mode of arrival: EMS Limitations: no limitations, altered mental status Nursing Notes Reviewed: Yes Vital Signs Reviewed: Yes - History of Present Illness HPI Narrative: 87-year-old male with a past medical history of CHF, DVT, DM, HTN, renal disease , chronic back, lower extremity ulcers, and von Willebrand presents from [facility] with altered mental status. Granted patient's family is at his baseline 2 days ago yesterday and loss of appetite and he had a chest x-ray at his [facility] facility and he was started on antibiotics. Today the patient was alert prior to going to the wound clinic. The family visited in this evening after the wound clinic the patient was staring into space he was not responsive any appeared to be having difficulty breathing. The patient is also had a recent history of hospitalization for urinary tract infection in which she acquired DVTs the reason why he resides in [facility] at this time. Pain Scale: 0 - Related Data Home Medications Medication Instructions Recorded Confirmed Atorvastatin [Lipitor] 40 mg PO DAILY 09/07/15 10/03/17 Cholecalciferol (D-3) [Vitamin D] 2,000 unit PO DAILY 05/09/17 10/03/17 Furosemide [Lasix] 40 mg PO DAILY 07/27/17 10/03/17 Ondansetron [Zofran ODT] 8 mg PO TID PRN 09/01/17 10/03/17 PARoxetine HCl [Paroxetine HCl] 10 mg PO QAM 09/01/17 10/03/17 Acetaminophen [Tylenol Arthritis] 650 mg PO TID 09/13/17 09/20/17 Docusate [Colace] 100 mg PO BID 09/13/17 10/03/17 Losartan [Cozaar] 25 mg PO DAILY 09/26/17 09/26/17 Metoprolol [Lopressor] 12.5 mg PO BID 09/26/17 09/26/17 Previous Rx's Medication Instructions Recorded Tamsulosin [Flomax] 0.4 mg PO DAILY capsule 08/06/15 Apixaban [Eliquis] 2.5 mg PO BID #60 tablet 07/30/17 Aspirin Enteric Coated [Aspirin EC] 81 mg PO DAILY #30 tablet. 07/30/17 Gabapentin [Neurontin] 300 mg PO BID 7 Days #14 capsule 09/06/17 Insulin LISPRO [HumaLOG] 0 units SQ TIDAC #1 each 09/24/17 Allergies Allergy/AdvReac Type Severity Reaction Status Date / Time No Known Allergies Allergy Verified 09/14/17 16:30 Limitations: ROS unobtainable due to patients medical condition Past Medical History - Past Medical History Attestation: Yes The following information was validated with the patient. Medical history: Reports: arthritis, CHF, DVT, diabetes, hypertension, kidney stones, renal disease, other Surgical history: Reports: herniorrhaphy, pacemaker/AICD Psychiatric history: Reports: anxiety - Social History Smoking Status: Never smoker Smokeless Tobacco Status: No Alcohol use: Reports: none, rarely Drug use: Reports: none Physical Exam Patient appears altered mental status is in respiratory distress oxygen saturations ranging from 85-87% on room air, however with oxygen mass patient is in the mid 90s percent. Patient's blood pressure is hypotensive in the 70s/ 50s. Heart rate is in the 60s. - General Limitations: altered mental status General appearance: in no apparent distress, obtunded - Head Head exam: atraumatic, normocephalic, normal inspection - Eye Eye exam: Present: normal appearance, PERRL - ENT ENT exam: normal exam, normal oropharynx, mucous membranes dry, other (No Gag Reflex) - Neck Neck exam: Present: normal inspection, full ROM, trachea midline - Chest Chest inspection: Present: normal inspection, symmetric chest wall rise. Absent : tenderness - Respiratory Respiratory exam: Present: respiratory distress, wheezes - Expanded Respiratory Exam Location: wheezes: Left, Right, Upper, Lower, rhonchi: Right, Upper, Lower - Cardiovascular Cardiovascular exam: Present: regular rate, normal rhythm, normal heart sounds, +S1, +S2 - Abdominal Exam Abdominal exam: Present: soft, Non-Tender, normal bowel sounds - Extremities Exam Extremities exam: Present: other (Patient has wound dressing on bilateral ankles with significant edema bilaterally that is pitting. ) - Neurological Exam Neurological exam: Present: other (Patient follows commands such as squeezing my fingers when asked she also not his head yes and no when asked questions. No gag reflex.) - Expanded Neurological Exam Coma Scale Eye Opening: To Voice Coma Scale Motor Response: Obeys Commands Coma Scale Verbal Response: None Coma Scale Total: 10 - Skin Skin exam: Present: warm, dry, intact, normal color Course Vital Signs Temperature 99.6 F 10/03/17 18:02 Pulse Rate 93 10/03/17 18:02 Respiratory Rate 24 10/03/17 18:02 Blood Pressure 93/37 10/03/17 18:02 O2 Sat by Pulse Oximetry 98 10/03/17 18:02 Temperature 99.6 F 10/03/17 18:02 Pulse Rate 108 10/03/17 19:32 Respiratory Rate 25 10/03/17 19:32 Blood Pressure 73/48 10/03/17 19:32 O2 Sat by Pulse Oximetry 93 10/03/17 19:32 Oxygen Delivery Oxygen Delivery Oximizer Procedures - Central Line Placement Right Femoral Central Line Inserted*: Yes Central Line Catheter Replacement*: Yes Central Line Insertion: emergent Consent Obtained: verbal consent Procedural Pause: verify patient name and date of , timeout performed per policy, cindy and assess the site, assemble equipment and verify supplies, perform hand hygiene Patient Placed on Monitor/Pulse Ox: Yes During the Procedure: clinician is wearing sterile gloves, cap, mask,& gown during insertion, sterile field and sterile technique are maintained, patient's face is covered with drape or mask and wearing a cap, everyone in room is wearing a mask Central Line Prep: Chlorhexidine scrub, sterile drapes applied Prep the Procedure Site: apply chloraprep to the skin using a back and forth scrubbing motion, apply chloraprep for 30 seconds (upper body), 1-2 min ( femoral sites), drape the patient with a full body drape Local Anesthetic: lidocaine 1% Ultrasound Used for Placement: No Central Line Lumen Inserted: triple Post Procedure: sutured in place, good blood return, all ports aspirated, flushed, capped, sterile dressing applied, guide wire removed and visualized, dressing is dated Post Procedure X-Ray: tip of catheter in good position Patient Tolerated Procedure: well, no complications Complications: none Name of Clinician Inserting Central Line: Dr. Tomy Samuels D.O. Clinician Assisting/Completing Checklist: Dr. Roger Das D.O. Date: 10/03/17 Time: 19:38 Medical Decision Making - Medical Records Medical records reviewed: Yes I reviewed the patient's medical records. - Lab Data Lab results reviewed: Yes I reviewed the patient's lab results. Lab Results 10/03/17 10/03/17 10/03/17 Range/Units 18:03 18:11 18:25 Sample Site R Radial ABG pH 7.37 (7.32-7.45) pH Units ABG pCO2 43 (35-45) mmHg ABG pO2 107 H (85-104) mmHg ABG HCO3 24 (21-27) mEq/L ABG Total CO2 26 (20-26) mEq/L ABG O2 Saturation 98 (95-98) % ABG Base Excess -1 (-2 to 3) mEq/L Adam Test N/A O2 Delivery Device NRB Inspired O2 100.0 (1-15=lpm [id number]%) POC Glucose 130 H (70-99) mg/dL Urine Color Yellow (Yellow) Urine Clarity Cloudy A (Clear) Urine pH 5.5 (5.0-8.0) pH Units Ur Specific [place] 1.019 (1.010-1.025) Urine Protein 30 H (Neg-Trace) mg/dL Urine Glucose (UA) Normal (Normal) mg/dL Urine Ketones Negative (Negative) mg/dL Urine Blood Large H (Negative) Urine Nitrite Negative (Negative) Urine Bilirubin Negative (Negative) Urine Urobilinogen Normal (Normal) mg/dL Ur Leukocyte Esterase Large H (Negative) Urine Microscopic RBC 15-30 H (0-3) per hpf Urine Microscopic WBC 30-50 H (0-3) per hpf Ur Squamous Epith Cells Few (None-Few) per lpf Urine Bacteria Many H (None-Few) per hpf Hyaline Casts None Seen (None-Few) per lpf Ur Culture Indicated? YES A (NO) - Radiology Data Radiology results reviewed: Yes I reviewed the patient's radiology results. Chest X-Ray 10/03/17 18:04 IMPRESSION: Mild pulmonary edema. D/ / 10/03/2017 19:08:25 Fabian Snowden MD / enrique Interpreting Provider: Fabian Snowden MD - EKG Data EKG #1 EKG attestation: Yes I reviewed and interpreted this EKG. EKG results narrative: EKG done at 18:02 shows paced rhythm at 77 bpm. Critical Care Time Critical Care Time: Yes Total Critical Care Time: 45 Attestation: Patient required 45 minutes of critical care time arrived hypotensive requiring insertion of a femoral central line IV fluids as well as pressor support. S.B.AAlicia - S.Nabil Situation: Demographics, MOA Background: Presenting Complaint, Relevant PMH, Meds, & Allergies Assessment: Vital Signs, Course and respsone to treatment, Exam Concerns, Patient/Family Expectation, Pertinant Lab Results, Outstanding Labs Recommendation: Barrier(s) to disposition, Recommendation based on pending studies, treatments, or consults S.BRex Report Given to: Dr. Vida Rosa Repor Time: 19:44 Attestation Statement - Attestation Attestation: I, Roger Das DO, examined this patient [id number] and my medical decision-making was reviewed with Dr. Tomy Samuels, Resident Physician. I agree with the documented findings, disposition and treatment plan as described except to the extent set forth below. Please see my progress notes for details. 87-year-old presents emergency room for evaluation of increased work of breathing altered mentation pneumonia and possible fever. Patient has been seen and evaluated treated at [facility]. He was just discharged from the hospital on of this month. Denies any other symptoms or issues. EMS transport and then with hypoxia and increased work of breathing and cardiac arrhythmia based on what they were describing. Patient has a pacemaker in place. The monitor was placed that time patient rhythm was normal. EKG along with management of the will be discussed and reviewed. Patient does have coarse breath sounds but does open up his eyes a fall commands and give a thumbs up when he is asked to do so. Initial blood pressures all been hypotensive here. Patient will have sepsis evaluation started and antibiotics given including vancomycin and Zosyn. Blood cultures and lactic acid are ordered. 1 L of fluid is ordered infused via peripheral IV placed by the nursing staff. A central line was placed in the right groin after that event. See documentation of the resident physician's central line. I strictly present throughout the entire treatment and procedure. No complications were noted. Patient is maintaining mentation and answer questions appropriately. ABG shows appropriate ventilation with a pH of 7.38 as well [place] a PCO2 [place] 42 and [id number]. Patient will most likely require admission after the full workup and treatment course are completed. At this time we are going to caution nearly preventing against intubation as best we can. Patient may require intubation and further evaluation here in the hospital. Patient was signed out to the nighttime physicians Dr. Mcpherson and Dr. Milligan. They will continue the treatment course and medical intervention admission process. See detailed documentation of the physical exam, medical intervention, medical decision-making and disposition the resident physician's note. 45 minutes of critical care pad the patient's treatment course during my evaluation.
[2017-10-03] MEDS: Norepinephrine 4 MG in D5% in Water 250 ML IVC SCH (19:23)
--- NOTE | 2017-10-03 19:36 | Emergency Department Note ---
Disposition Clinical Impression: Volume overload, Leg edema, Hypotension, Congestive heart failure Disposition: Admitted As Inpatient Condition: Critical Referrals: Radha Jones CNP [Primary Care Provider] - Time of Disposition: 19:35 General Adult HPI - General Chief complaint: ED Shortness of Breath/Dyspnea Stated complaint: unresponsive Time Seen by Provider: 10/03/17 18:03 Source: patient, EMS Mode of arrival: EMS Limitations: altered mental status - History of Present Illness Pain Scale: 0 - Related Data Home Medications Medication Instructions Recorded Confirmed Atorvastatin [Lipitor] 40 mg PO DAILY 09/07/15 10/03/17 Cholecalciferol (D-3) [Vitamin D] 2,000 unit PO DAILY 05/09/17 10/03/17 Furosemide [Lasix] 40 mg PO DAILY 07/27/17 10/03/17 Ondansetron [Zofran ODT] 8 mg PO TID PRN 09/01/17 10/03/17 PARoxetine HCl [Paroxetine HCl] 10 mg PO QAM 09/01/17 10/03/17 Acetaminophen [Tylenol Arthritis] 650 mg PO TID 09/13/17 09/20/17 Docusate [Colace] 100 mg PO BID 09/13/17 10/03/17 Losartan [Cozaar] 25 mg PO DAILY 09/26/17 09/26/17 Metoprolol [Lopressor] 12.5 mg PO BID 09/26/17 09/26/17 Previous Rx's Medication Instructions Recorded Tamsulosin [Flomax] 0.4 mg PO DAILY capsule 08/06/15 Apixaban [Eliquis] 2.5 mg PO BID #60 tablet 07/30/17 Aspirin Enteric Coated [Aspirin EC] 81 mg PO DAILY #30 tablet.dr 07/30/17 Gabapentin [Neurontin] 300 mg PO BID 7 Days #14 capsule 09/06/17 Insulin LISPRO [HumaLOG] 0 units SQ TIDAC #1 each 09/24/17 Allergies Allergy/AdvReac Type Severity Reaction Status Date / Time No Known Allergies Allergy Verified 09/14/17 16:30 Past Medical History - Past Medical History Medical history: Reports: arthritis, CHF, DVT, diabetes, hypertension, kidney stones, renal disease, other Surgical history: Reports: herniorrhaphy, pacemaker/AICD Psychiatric history: Reports: anxiety - Social History Smoking Status: Never smoker Smokeless Tobacco Status: No Alcohol use: Reports: none, rarely Drug use: Reports: none Physical Exam - General Limitations: altered mental status General appearance: in no apparent distress, obtunded Course Vital Signs Temperature 99.6 F 10/03/17 18:02 Pulse Rate 93 10/03/17 18:02 Respiratory Rate 24 10/03/17 18:02 Blood Pressure 93/37 10/03/17 18:02 O2 Sat by Pulse Oximetry 98 10/03/17 18:02 Temperature 99.6 F 10/03/17 18:02 Pulse Rate 108 10/03/17 19:32 Respiratory Rate 25 10/03/17 19:32 Blood Pressure 73/48 10/03/17 19:32 O2 Sat by Pulse Oximetry 93 10/03/17 19:32 Oxygen Delivery Oxygen Delivery Oximizer Medical Decision Making - Lab Data Lab Results 10/03/17 10/03/17 10/03/17 Range/Units 18:03 18:11 18:25 Sample Site R Radial ABG pH 7.37 (7.32-7.45) pH Units ABG pCO2 43 (35-45) mmHg ABG pO2 107 H (85-104) mmHg ABG HCO3 24 (21-27) mEq/L ABG Total CO2 26 (20-26) mEq/L ABG O2 Saturation 98 (95-98) % ABG Base Excess -1 (-2 to 3) mEq/L Adam Test N/A O2 Delivery Device NRB Inspired O2 100.0 (1-15=lpm [id number]=%) POC Glucose 130 H (70-99) mg/dL Urine Color Yellow (Yellow) Urine Clarity Cloudy A (Clear) Urine pH 5.5 (5.0-8.0) pH Units Ur Specific [place] 1.019 (1.010-1.025) Urine Protein 30 H (Neg-Trace) mg/dL Urine Glucose (UA) Normal (Normal) mg/dL Urine Ketones Negative (Negative) mg/dL Urine Blood Large H (Negative) Urine Nitrite Negative (Negative) Urine Bilirubin Negative (Negative) Urine Urobilinogen Normal (Normal) mg/dL Ur Leukocyte Esterase Large H (Negative) Urine Microscopic RBC 15-30 H (0-3) per hpf Urine Microscopic WBC 30-50 H (0-3) per hpf Ur Squamous Epith Cells Few (None-Few) per lpf Urine Bacteria Many H (None-Few) per hpf Hyaline Casts None Seen (None-Few) per lpf Ur Culture Indicated? YES A (NO) Attestation Statement - Attestation Attestation: I, Roger Das DO, examined this patient [id number] and my medical decision-making was reviewed withDr. Tomy Samuels Resident Physician. I agree with the documented findings, disposition and treatment plan as described except to the extent set forth below. Please see my progress notes for details. 87-year-old presents emergency room for evaluation of increased work of breathing altered mentation pneumonia and possible fever. Patient has been seen and evaluated treated at [facility]. He was just discharged from the hospital on of this month. Denies any other symptoms or issues. EMS transport and then with hypoxia and increased work of breathing and cardiac arrhythmia based on what they were describing. Patient has a pacemaker in place. The monitor was placed that time patient rhythm was normal. EKG along with management of the will be discussed and reviewed. Patient does have coarse breath sounds but does open up his eyes a fall commands and give a thumbs up when he is asked to do so. Initial blood pressures all been hypotensive here. Patient will have sepsis evaluation started and antibiotics given including vancomycin and Zosyn. Blood cultures and lactic acid are ordered. 1 L of fluid is ordered infused via peripheral IV placed by the nursing staff. A central line was placed in the right groin after that event. See documentation of the resident physician's central line. I strictly present throughout the entire treatment and procedure. No complications were noted. Patient is maintaining mentation and answer questions appropriately. ABG shows appropriate ventilation with a pH of 7.38 as well as a PCO2 of 42 and [address]. Patient will most likely require admission after the full workup and treatment course are completed. At this time we are going to caution nearly preventing against intubation as best we can. Patient may require intubation and further evaluation here in the hospital. Patient was signed out to the nighttime physicians Dr. Mcpherson and Dr. Milligan. They will continue the treatment course and medical intervention admission process. See detailed documentation of the physical exam, medical intervention, medical decision-making and disposition the resident physician's note. 45 minutes of critical care pad the patient's treatment course during my evaluation.
[2017-10-03] MEDS ORDERED: 0.9 % Sodium Chloride 1,000 ML IVC SCH (19:45)
[2017-10-03 19:47] LABS: Basophils % 0.1 %; Eosinophils % 0.1 %; Hemoglobin 9.7 g/dL (12.9-16.9); Immature Granulocytes % 2.8 % (0-4); Lymphocytes # 0.3 K/mcL (0.6-4.6); Mean Corpuscular HGB Conc 31.3 g/dL (31.6-35.5); Mean Corpuscular Hemoglobin 30.5 pg (28.0-33.3); Mean Corpuscular Volume 97.5 fL (83.0-100.0); Mean Platelet Volume 9.3 fL (9.4-12.4); Monocytes # 0.9 K/mcL (0.0-1.3); Neutrophils # 12.8 K/mcL (1.6-8.9); Platelet Count 181 K/mcL (140-400); Red Blood Count 3.18 M/mcL (4.19-5.50); Red Cell Distribution Width 14.3 % (11.5-14.5)
[2017-10-03 19:54] LABS: Alanine Aminotransferase 29 Units/L (7-52); Albumin 1.9 g/dL (3.5-5.7); Albumin/Globulin Ratio 0.8 (1.1-2.2); Alkaline Phosphatase 271 Units/L (34-104); Aspartate Amino Transferase 41 Units/L (13-39); BUN/Creatinine Ratio 36 (6-26); Bilirubin,Direct 0.2 mg/dL (0.0-0.2); Bilirubin,Indirect 0.3 mg/dL (0.0-1.2); Bilirubin,Total 0.5 mg/dL (0.3-1.0); Blood Urea Nitrogen 57 mg/dL (8-23); Calcium 7.2 mg/dL (8.6-10.3); Carbon Dioxide 24 mEq/L (23-29); Chloride 100 mEq/L (98-107); Globulin 2.5 g/dL (2.4-3.5); Glucose 113 mg/dL (70-105); Magnesium 1.6 mg/dL (1.6-2.6); Osmolality,Calculated 297 (280-300); Phosphorous 3.9 mg/dL (2.7-4.5); Potassium 4.3 mEq/L (3.5-5.1); Sodium 135 mEq/L (136-145); Total Protein 4.4 g/dL (6.4-8.9); eGFR For African Americans 50 (> 60); eGFR For Non-African Americans 42 (> 60)
--- NOTE | 2017-10-03 19:54 | Emergency Department Note ---
Disposition Clinical Impression: Leg edema, Septic shock Volume overload Qualifiers: Hypervolemia type: other Qualified Code(s): E87.79 - Other fluid overload Hypotension Qualifiers: Hypotension type: unspecified hypotension type Qualified Code(s): I95.9 - Hypotension, unspecified Congestive heart failure Qualifiers: Heart failure type: other Qualified Code(s): I50.9 - Heart failure, unspecified Disposition: Admitted As Inpatient Condition: Critical Referrals: Radha oJnes, [employer] [Primary Care Provider] - Time of Disposition: 21:00 General Adult HPI - General Chief complaint: ED Shortness of Breath/Dyspnea Stated complaint: unresponsive Time Seen by Provider: 10/03/17 18:03 Source: patient, EMS Mode of arrival: EMS Limitations: altered mental status Nursing Notes Reviewed: Yes Vital Signs Reviewed: Yes - History of Present Illness Pain Scale: 0 - Related Data Home Medications Medication Instructions Recorded Confirmed Atorvastatin [Lipitor] 40 mg PO DAILY 09/07/15 10/03/17 Cholecalciferol (D-3) [Vitamin D] 2,000 unit PO DAILY 05/09/17 10/03/17 Furosemide [Lasix] 40 mg PO DAILY 07/27/17 10/03/17 Ondansetron [Zofran ODT] 8 mg PO TID PRN 09/01/17 10/03/17 PARoxetine HCl [Paroxetine HCl] 10 mg PO QAM 09/01/17 10/03/17 Acetaminophen [Tylenol Arthritis] 650 mg PO TID 09/13/17 09/20/17 Docusate [Colace] 100 mg PO BID 09/13/17 10/03/17 Losartan [Cozaar] 25 mg PO DAILY 09/26/17 09/26/17 Benzonatate [Tessalon] 100 mg PO TID 10/03/17 10/03/17 Ertapenem [INVanz] 1,000 mg IVPB DAILY 10/03/17 10/03/17 Guaifenesin [Mucinex] 600 mg PO BID 10/03/17 10/03/17 Ipratropium/Albuterol Neb [Duoneb] 3 ml IH Q6HR 10/03/17 10/03/17 Previous Rx's Medication Instructions Recorded Tamsulosin [Flomax] 0.4 mg PO DAILY capsule 08/06/15 Apixaban [Eliquis] 2.5 mg PO BID #60 tablet 07/30/17 Aspirin Enteric Coated [Aspirin EC] 81 mg PO DAILY #30 tablet. 07/30/17 Gabapentin [Neurontin] 300 mg PO BID 7 Days #14 capsule 09/06/17 Insulin LISPRO [HumaLOG] 0 units SQ TIDAC #1 each 09/24/17 Allergies Allergy/AdvReac Type Severity Reaction Status Date / Time No Known Allergies Allergy Verified 10/03/17 21:14 Past Medical History - Past Medical History Medical history: Reports: arthritis, CHF, DVT, diabetes, hypertension, kidney stones, renal disease, other Surgical history: Reports: herniorrhaphy, pacemaker/AICD Psychiatric history: Reports: anxiety - Social History Smoking Status: Never smoker Smokeless Tobacco Status: No Alcohol use: Reports: none, rarely Drug use: Reports: none Physical Exam - General Limitations: altered mental status General appearance: obtunded, in distress (Respiratory.) - Head Head exam: atraumatic, normocephalic, normal inspection - Eye Eye exam: Present: PERRL, EOMI - ENT ENT exam: normal exam, normal oropharynx, mucous membranes moist - Neck Neck exam: Present: trachea midline - Chest Chest inspection: Present: symmetric chest wall rise. Absent: tenderness - Respiratory Respiratory exam: Present: other (Rhonchi throughout) - Cardiovascular Cardiovascular exam: Present: regular rate, normal rhythm, normal heart sounds - Abdominal Exam Abdominal exam: Present: soft, Non-Tender. Absent: organomegaly - Extremities Exam Extremities exam: Present: pedal edema (Extensive to lower abdomen) - Neurological Exam Neurological exam: Present: other (Answer some simple questions with a grunt or not.) - Skin Skin exam: Present: warm, dry, intact Course Course Narrative: Patient was signed out to me by the day team. Please read their note for further. Patient is in septic shock. Was placed on Levothroid for blood pressure management. Patient's respiratory status declined while here so we intubated the patient. The patient's family had a discussion and they believe that the patient would one to be intubated and placed on a ventilator. The intubation was successful., Gated by copious secretions. These were suctioned. No desaturations. Patient is severely edematous. Does have an elevated troponin as well as BNP. Likely source of the sepsis is lungs possible skin as he has multiple ulcers to his body including a decubitus ulcer that he is seeing wound clinic for. We will admit patient to ICU. - Consultations Consultation #1: Dr Pope accepted Pt in critical condition. Time: 21:35 Vital Signs Temperature 99.6 F 10/03/17 18:02 Pulse Rate 93 10/03/17 18:02 Respiratory Rate 24 10/03/17 18:02 Blood Pressure 93/37 10/03/17 18:02 O2 Sat by Pulse Oximetry 98 10/03/17 18:02 Temperature 10 F L 10/03/17 20:23 Pulse Rate 73 10/03/17 21:23 Respiratory Rate 14 10/03/17 21:23 Blood Pressure 102/50 10/03/17 21:23 O2 Sat by Pulse Oximetry 100 10/03/17 21:23 Oxygen Delivery Oxygen Delivery Ventilator Procedures - Intubation Time out performed: No sedative: Ketamine paralytic: Rocuronium Laryngoscope: Jones ET Tube Size: Oral ET Tube Uncuffed: No Tube Secured Depth (cm): 23 Tube Secured Location: lips Tube Placement Confirmation: visualized tube passing through cords, equal breath sounds bilaterally, no breath sounds over epigastrium, confirmation by capnometry Patient Tolerated Procedure: well Intubation Complications: none Medical Decision Making - Lab Data Result diagrams: 10/03/17 19:14 10/03/17 19:14 Lab Results 10/03/17 10/03/17 10/03/17 Range/Units 18:03 18:11 18:25 WBC (4.3-11.1) K/mcL RBC (4.19-5.50) M/mcL Hgb (12.9-16.9) g/dL Hct (37.5-50.1) % MCV (83.0-100.0) fL MCH (28.0-33.3) pg MCHC (31.6-35.5) g/dL RDW (11.5-14.5) % Plt Count (140-400) K/mcL MPV (9.4-12.4) fL Immature Gran % (0-4) % Seg Neutrophils % % Lymphocytes % % Monocytes % % Eosinophils % % Basophils % % Neutrophils # (1.6-8.9) K/mcL Lymphocytes # (0.6-4.6) K/mcL Monocytes # (0.0-1.3) K/mcL Eosinophils # (0.0-0.6) K/mcL Basophils # (0.0-0.2) K/mcL Dohle Bodies (Not Present) Polychromasia (Not Present) PT (9.4-12.1) Seconds INR APTT (26.0-36.0) Seconds Sample Site R Radial ABG pH 7.37 (7.32-7.45) pH Units ABG pCO2 43 (35-45) mmHg ABG pO2 107 H (85-104) mmHg ABG HCO3 24 (21-27) mEq/L ABG Total CO2 26 (20-26) mEq/L ABG O2 Saturation 98 (95-98) % ABG Base Excess -1 (-2 to 3) mEq/L Adam Test N/A O2 Delivery Device NRB Inspired O2 100.0 (1-15=lpm ri14-345=%) Sodium (136-145) mEq/L Potassium (3.5-5.1) mEq/L Chloride (98-107) mEq/L Carbon Dioxide (23-29) mEq/L BUN (8-23) mg/dL Creatinine (0.70-1.30) mg/dL Est GFR ( Amer) (> 60) Est GFR (Non-Af Amer) (> 60) BUN/Creatinine Ratio (6-26) Glucose (70-105) mg/dL POC Glucose 130 H (70-99) mg/dL Calculated Osmolality (280-300) Lactic Acid (0.5-2.2) mmol/L Calcium (8.6-10.3) mg/dL Phosphorus (2.7-4.5) mg/dL Magnesium (1.6-2.6) mg/dL Total Bilirubin (0.3-1.0) mg/dL Direct Bilirubin (0.0-0.2) mg/dL Indirect Bilirubin (0.0-1.2) mg/dL AST (13-39) Units/L ALT (7-52) Units/L Alkaline Phosphatase (34-104) Units/L Troponin I (< 0.04) ng/mL B-Natriuretic Peptide (Less than 100) pg/mL Serum Total Protein (6.4-8.9) g/dL Albumin (3.5-5.7) g/dL Globulin (2.4-3.5) g/dL Albumin/Globulin Ratio (1.1-2.2) Random Cortisol mcg/dl Urine Color Yellow (Yellow) Urine Clarity Cloudy A (Clear) Urine pH 5.5 (5.0-8.0) pH Units Ur Specific [place] 1.019 (1.010-1.025) Urine Protein 30 H (Neg-Trace) mg/dL Urine Glucose (UA) Normal (Normal) mg/dL Urine Ketones Negative (Negative) mg/dL Urine Blood Large H (Negative) Urine Nitrite Negative (Negative) Urine Bilirubin Negative (Negative) Urine Urobilinogen Normal (Normal) mg/dL Ur Leukocyte Esterase Large H (Negative) Urine Microscopic RBC 15-30 H (0-3) per hpf Urine Microscopic WBC 30-50 H (0-3) per hpf Ur Squamous Epith Cells Few (None-Few) per lpf Urine Bacteria Many H (None-Few) per hpf Hyaline Casts None Seen (None-Few) per lpf Ur Culture Indicated? YES A (NO) 10/03/17 10/03/17 10/03/17 Range/Units 19:14 19:14 19:14 WBC 14.4 H (4.3-11.1) K/mcL RBC 3.18 L (4.19-5.50) M/mcL Hgb 9.7 L (12.9-16.9) g/dL Hct 31.0 L (37.5-50.1) % MCV 97.5 (83.0-100.0) fL MCH 30.5 (28.0-33.3) pg MCHC 31.3 L (31.6-35.5) g/dL RDW 14.3 (11.5-14.5) % Plt Count 181 (140-400) K/mcL MPV 9.3 L (9.4-12.4) fL Immature Gran % 2.8 (0-4) % Seg Neutrophils % 89.0 % Lymphocytes % 2.0 % Monocytes % 6.0 % Eosinophils % 0.1 % Basophils % 0.1 % Neutrophils # 12.8 H (1.6-8.9) K/mcL Lymphocytes # 0.3 L (0.6-4.6) K/mcL Monocytes # 0.9 (0.0-1.3) K/mcL Eosinophils # 0.0 (0.0-0.6) K/mcL Basophils # 0.0 (0.0-0.2) K/mcL Dohle Bodies Present A (Not Present) Polychromasia 1+ A (Not Present) PT 17.9 H (9.4-12.1) Seconds INR 1.6 APTT 34.2 (26.0-36.0) Seconds Sample Site ABG pH (7.32-7.45) pH Units ABG pCO2 (35-45) mmHg ABG pO2 (85-104) mmHg ABG HCO3 (21-27) mEq/L ABG Total CO2 (20-26) mEq/L ABG O2 Saturation (95-98) % ABG Base Excess (-2 to 3) mEq/L Adam Test O2 Delivery Device Inspired O2 (1-15=lpm [id number]=%) Sodium 135 L (136-145) mEq/L Potassium 4.3 (3.5-5.1) mEq/L Chloride 100 (98-107) mEq/L Carbon Dioxide 24 (23-29) mEq/L BUN 57 H (8-23) mg/dL Creatinine 1.59 H (0.70-1.30) mg/dL Est GFR ( Amer) 50 L (> 60) Est GFR (Non-Af Amer) 42 L (> 60) BUN/Creatinine Ratio 36 H (6-26) Glucose 113 H (70-105) mg/dL POC Glucose (70-99) mg/dL Calculated Osmolality 297 (280-300) Lactic Acid (0.5-2.2) mmol/L Calcium 7.2 L (8.6-10.3) mg/dL Phosphorus 3.9 (2.7-4.5) mg/dL Magnesium 1.6 (1.6-2.6) mg/dL Total Bilirubin 0.5 (0.3-1.0) mg/dL Direct Bilirubin 0.2 (0.0-0.2) mg/dL Indirect Bilirubin 0.3 (0.0-1.2) mg/dL AST 41 H (13-39) Units/L ALT 29 (7-52) Units/L Alkaline Phosphatase 271 H (34-104) Units/L Troponin I 0.33 H* (< 0.04) ng/mL B-Natriuretic Peptide (Less than 100) pg/mL Serum Total Protein 4.4 L (6.4-8.9) g/dL Albumin 1.9 L (3.5-5.7) g/dL Globulin 2.5 (2.4-3.5) g/dL Albumin/Globulin Ratio 0.8 L (1.1-2.2) Random Cortisol > 60.0 mcg/dl Urine Color (Yellow) Urine Clarity (Clear) Urine pH (5.0-8.0) pH Units Ur Specific [place] (1.010-1.025) Urine Protein (Neg-Trace) mg/dL Urine Glucose (UA) (Normal) mg/dL Urine Ketones (Negative) mg/dL Urine Blood (Negative) Urine Nitrite (Negative) Urine Bilirubin (Negative) Urine Urobilinogen (Normal) mg/dL Ur Leukocyte Esterase (Negative) Urine Microscopic RBC (0-3) per hpf Urine Microscopic WBC (0-3) per hpf Ur Squamous Epith Cells (None-Few) per lpf Urine Bacteria (None-Few) per hpf Hyaline Casts (None-Few) per lpf Ur Culture Indicated? (NO) 10/03/17 10/03/17 Range/Units 19:14 19:14 WBC (4.3-11.1) K/mcL RBC (4.19-5.50) M/mcL Hgb (12.9-16.9) g/dL Hct (37.5-50.1) % MCV (83.0-100.0) fL MCH (28.0-33.3) pg MCHC (31.6-35.5) g/dL RDW (11.5-14.5) % Plt Count (140-400) K/mcL MPV (9.4-12.4) fL Immature Gran % (0-4) % Seg Neutrophils % % Lymphocytes % % Monocytes % % Eosinophils % % Basophils % % Neutrophils # (1.6-8.9) K/mcL Lymphocytes # (0.6-4.6) K/mcL Monocytes # (0.0-1.3) K/mcL Eosinophils # (0.0-0.6) K/mcL Basophils # (0.0-0.2) K/mcL Dohle Bodies (Not Present) Polychromasia (Not Present) PT (9.4-12.1) Seconds INR APTT (26.0-36.0) Seconds Sample Site ABG pH (7.32-7.45) pH Units ABG pCO2 (35-45) mmHg ABG pO2 (85-104) mmHg ABG HCO3 (21-27) mEq/L ABG Total CO2 (20-26) mEq/L ABG O2 Saturation (95-98) % ABG Base Excess (-2 to 3) mEq/L Adam Test O2 Delivery Device Inspired O2 (1-15=lpm ar50-434=%) Sodium (136-145) mEq/L Potassium (3.5-5.1) mEq/L Chloride (98-107) mEq/L Carbon Dioxide (23-29) mEq/L BUN (8-23) mg/dL Creatinine (0.70-1.30) mg/dL Est GFR ( Amer) (> 60) Est GFR (Non-Af Amer) (> 60) BUN/Creatinine Ratio (6-26) Glucose (70-105) mg/dL POC Glucose (70-99) mg/dL Calculated Osmolality (280-300) Lactic Acid 3.7 H (0.5-2.2) mmol/L Calcium (8.6-10.3) mg/dL Phosphorus (2.7-4.5) mg/dL Magnesium (1.6-2.6) mg/dL Total Bilirubin (0.3-1.0) mg/dL Direct Bilirubin (0.0-0.2) mg/dL Indirect Bilirubin (0.0-1.2) mg/dL AST (13-39) Units/L ALT (7-52) Units/L Alkaline Phosphatase (34-104) Units/L Troponin I (< 0.04) ng/mL B-Natriuretic Peptide 1124 H (Less than 100) pg/mL Serum Total Protein (6.4-8.9) g/dL Albumin (3.5-5.7) g/dL Globulin (2.4-3.5) g/dL Albumin/Globulin Ratio (1.1-2.2) Random Cortisol mcg/dl Urine Color (Yellow) Urine Clarity (Clear) Urine pH (5.0-8.0) pH Units Ur Specific [place] (1.010-1.025) Urine Protein (Neg-Trace) mg/dL Urine Glucose (UA) (Normal) mg/dL Urine Ketones (Negative) mg/dL Urine Blood (Negative) Urine Nitrite (Negative) Urine Bilirubin (Negative) Urine Urobilinogen (Normal) mg/dL Ur Leukocyte Esterase (Negative) Urine Microscopic RBC (0-3) per hpf Urine Microscopic WBC (0-3) per hpf Ur Squamous Epith Cells (None-Few) per lpf Urine Bacteria (None-Few) per hpf Hyaline Casts (None-Few) per lpf Ur Culture Indicated? (NO) Sepsis Reassessment Note - Evaluation Sepsis Screen: Sepsis Risk Current Stage of Sepsis: septic shock Possible Source of Sepsis: pulmonary - Focused Exam Date of Encounter: 10/03/17 Time of Encounter: 19:55 Vital Signs: Vital Signs Temp Pulse Resp BP Pulse Ox 10/03/17 21:23 73 14 102/50 100 10/03/17 20:59 81 14 140/64 100 10/03/17 20:46 102 21 100/55 100 10/03/17 20:37 116 19 97/56 100 10/03/17 20:23 10 F L 84 23 115/69 87 10/03/17 19:58 106 20 99/62 97 10/03/17 19:48 80 26 90/57 92 10/03/17 19:32 108 25 73/48 93 10/03/17 19:00 91 18 87/49 97 10/03/17 18:48 90 22 76/72 94 10/03/17 18:38 106 28 83/59 99 10/03/17 18:23 94 24 93/52 98 10/03/17 18:08 90 74/54 100 10/03/17 18:02 99.6 F 93 24 93/37 98 Respiratory Exam: Present: decreased breath sounds (Throughout) Cardiovascular Exam: Present: irregulary irregular Capillary Refill: < 2 seconds Peripheral Pulse Strength: 3+ normal Peripheral Pulse Location: Radial Skin Exam: pink (edematous)
[2017-10-03 19:55] LABS: INR 1.6; Prothrombin Time 17.9 Seconds (9.4-12.1)
[2017-10-03 19:58] LABS: Activated Partial Thrombo Time 34.2 Seconds (26.0-36.0)
[2017-10-03 20:17] LABS: Dohle Bodies Present (Not Present); Polychromasia 1+ (Not Present)
[2017-10-03] MEDS ORDERED: *HR* Rocuronium Bromide 50 MG/5 ML VIAL IVP ONE (20:23)
[2017-10-03] MEDS ORDERED: *HR* Etomidate 20 MG/10 ML AMPUL IVP ONE (20:24)
[2017-10-03] MEDS ORDERED: *HR* FentaNYL (PF) 100 MCG/2 ML VIAL ONE (20:27)
[2017-10-03] MEDS: *HR* FentaNYL (PF) 100 MCG/2 ML VIAL IVP ONE ×2 (20:33→20:55)
--- NOTE | 2017-10-03 20:58 | Emergency Department Note ---
START Narrative - START START: I examined this patient and my medical decision-making was reviewed with the Resident Physician. I agree with the documented findings, disposition and treatment plan as described except to the extent set forth below. Patient had ongoing secretions, pulmonary edema, hypotension, septic shock and required emergent intubation. He was intubated without difficulty and will be admitted to the ICU for further management.
[2017-10-03] MEDS: FentaNYL (PF) 1,000 MCG in 0.9 % Sodium Chloride 80 ML IVC SCH (21:16)
[2017-10-03] MEDS ORDERED: D5% in Water 1,000 ML IVC PRN (23:08)
[2017-10-03] MEDS ORDERED: Potassium Phosphate 44 MEQ in 0.9 % Sodium Chloride 250 ML IVPB PRN (23:08)
[2017-10-03] MEDS ORDERED: *HR* Dextrose 50 % in Water (Syg) 50 ML SYRINGE IVP PRN (23:08)
[2017-10-03] MEDS ORDERED: Dextrose Gel 15 GM/37.5 ML TUBE PO PRN ×2 (23:08)
[2017-10-03] MEDS ORDERED: Potassium Chloride 40 MEQ/200 ML BAG IVPB PRN (23:08)
[2017-10-03 23:10] LABS: Troponin I 0.33 ng/mL (< 0.04)
[2017-10-03] MEDS ORDERED: Naloxone 0.4 MG/ML INJ IVP PRN (23:11)
[2017-10-03] MEDS ORDERED: Acetaminophen 325 MG TABLET PO PRN (23:11)
--- NOTE | 2017-10-03 23:15 | Internal Med History&Physical ---
Date of Encounter: 10/04/17 Time of Encounter: 23:13 Internal Medicine - H&P: HPI Chief complaint: Unresponsiveness Admitted From: Emergency Dept Plans for Post Hospital Care: Home History of present illness: Mr. Vázquez is a 87 year old male with extensive history including pacemaker , HTN, DM, CKD stage 3, h/o DVT on anticoag, Alzheimer's, and recent diagnosis of CHF with EF of 45% and a recent LHC done 09/13 showing minimal 2 vessel disease who presents with decreased responsiveness. Patient was discharged from here on 09/24 after stay for decreased mentation thought to be secondary to hypoglycemia. At this time is also hypertensive and needed pressor support. His oral diabetic meds were stopped last visit and his antihypertensives were adjusted. He was discharged to nursing facility and comes back with family noticing decreased mentation at the [facility] for the last 2 days. Has had decreased appetite. Chest x-ray apparently done at the [facility] showed pneumonia and he was started oral antibiotics. Today he went to care for lower extremity ulcers and in the evening family noted decreased mentation and the patient was transferred to our facility where upon presentation he was satting in the 70s to 80% and showed increased work of breathing. He was intubated. The patient was also hypotensive and a central line was put in and pressors were started. Reportedly the patient has been febrile as well. Laboratory workup in the ED showed leukocytosis at 14.4. Anemia of 9.7. Creatinine was 1.59 but patient has chronic kidney disease. Troponins were 0.33. BNP was over 1000. Lactic acid was 3.7. Chest x-ray showed a new hilar infiltrate. He also showed signs of CHF. Urine was done with possible UTI. Patient was given vancomycin and Zosyn in the ED. He did receive a liter of normal saline. Past Med Surg Social Fam HX - Past Medical History Medical history: arthritis, CHF, DVT, diabetes, hypertension, kidney stones, renal disease, other Additional medical history: UTI,PAcer, Alzheimers, Cellulitis Psychiatric history: anxiety - Past Surgical History Surgical History: herniorrhaphy, pacemaker/AICD Additional surgical history: I7D LLE. Back Surgery. Right knee. von wellenbrand. bilat carpal tunnel - Social History Smoking Status: Never smoker Smokeless Tobacco Status: No Alcohol use: none, rarely Drug use: none - Family History Father Hx Family Cardiac Disorders: Yes Hx Family Respiratory Disorders: No Hx Family Cancer: No Hx Family GI Disorders: No Hx Family Endocrine Disorder: No Hx Family Neuromuscular Disorders: No Hx Family Neurologic Disorders: No Hx Family HEENT Disorders: No Hx Family Autoimmune Disorders: No Mother Family Member Ethnicity: Non- Living Status: Hx Family Cardiac Disorders: No Hx Family Respiratory Disorders: No Hx Family Cancer: No Hx Family GI Disorders: No Hx Family Endocrine Disorder: No Hx Family Neuromuscular Disorders: No Hx Family Neurologic Disorders: No Hx Family HEENT Disorders: No Hx Family Autoimmune Disorders: No Internal Medicine - H&P: Meds Tamsulosin [Flomax] 0.4 mg PO DAILY capsule 08/06/15 [Rx] Atorvastatin [Lipitor] 40 mg PO DAILY 09/07/15 [History] Cholecalciferol (D-3) [Vitamin D] 2,000 unit PO DAILY 05/09/17 [History] Furosemide [Lasix] 40 mg PO DAILY 07/27/17 [History] Apixaban [Eliquis] 2.5 mg PO BID #60 tablet 07/30/17 [Rx] Aspirin Enteric Coated [Aspirin EC] 81 mg PO DAILY #30 tablet. 07/30/17 [Rx] Ondansetron [Zofran ODT] 8 mg PO TID PRN 09/01/17 [History] PARoxetine HCl [Paroxetine HCl] 10 mg PO QAM 09/01/17 [History] Gabapentin [Neurontin] 300 mg PO BID 7 Days #14 capsule 09/06/17 [Rx] Acetaminophen [Tylenol Arthritis] 650 mg PO TID 09/13/17 [History] Docusate [Colace] 100 mg PO BID 09/13/17 [History] Insulin LISPRO [HumaLOG] 0 units SQ TIDAC #1 each 09/24/17 [Rx] Losartan [Cozaar] 25 mg PO DAILY 09/26/17 [History] Benzonatate [Tessalon] 100 mg PO TID 10/03/17 [History] Ertapenem [INVanz] 1,000 mg IVPB DAILY 10/03/17 [History] Guaifenesin [Mucinex] 600 mg PO BID 10/03/17 [History] Ipratropium/Albuterol Neb [Duoneb] 3 ml IH Q6HR 10/03/17 [History] 3 Allergy/AdvReac Type Severity Reaction Status Date / Time No Known Allergies Allergy Verified 10/03/17 21:14 ROS unobtainable: due to endotracheal tube, due to mental status All Systems PM: A 10-system review of systems was performed and is negative for pertinent findings except as documented above in the HPI. - Constitutional Vitals: Temp Pulse Resp BP Pulse Ox 10 F L 74 14 115/53 100 10/03/17 20:23 10/03/17 22:57 10/03/17 22:57 10/03/17 22:57 10/03/17 22:57 Exam: GEN: NAD, sedated HEENT: AT, NC, No cyanosis, oral mucosa is moist, No JVD Lymphatics: No lymphadenoapthy Eyes: Extrocular muscles intact, anicteric CVS:RRR. S1, S2, No m/r/g RESP: Diminished with coarse and crackles heard bilaterally ABD: Soft, NT, ND, +BS EXT: 3+ LE edema, No rashes, 2+ DP NEURO: Pupils are equal and reactive to light., Patient has intubated and sedated. Internal Med - H&P Results - Labs CBC & Chem 7: 10/04/17 05:50 10/04/17 05:50 - Impressions ITS Impressions KUB X-Ray 10/03/17 22:30 IMPRESSION: The enteric tube tip is in the proximal stomach and the side port is at the level of the gastroesophageal junction. Further advancement of the tube is recommended. D/ / 10/03/2017 22:57:25 Kvng Porras MD / bcarter Interpreting Provider: Kvng Porras MD - Assessment and plan (1) Septic shock Current Visit: Yes Status: Acute Assessment and plan: Likely from HCAP vs. UTI. vs. coccyx ulcer. On pressor support. Wean as tolerated. Repeat lactic acid. f/u on blood cultures. Treat HCAP and UTI as below. On IV vanco/zosyn. No IVF due to CHF exacerbation. (2) Acute respiratory failure with hypoxia Current Visit: Yes Status: Acute Assessment and plan: Multifactorial with CHF exacerbation and HCAP. On vent. Will underlying cause as below. c/s pulm. (3) HCAP (healthcare-associated pneumonia) Current Visit: Yes Status: Acute Assessment and plan: Will place on vanco/zosyn. f/u on blood cultures. check sputum cx. check urine strep and legionella. vent support. Nebs scheduled. (4) UTI (urinary tract infection) Current Visit: Yes Status: Acute Assessment and plan: Urinalysis is not very impressive however given the patient's history of ESBL we will keep him on Zosyn. Follow up on cultures. Previous cultures were sensitive to Zosyn. Qualifiers: Urinary tract infection type: catheter-associated UTI Indwelling urinary catheter type: unspecified Encounter type: initial encounter Qualified Code( s): T83.511A - Infection and inflammatory reaction due to indwelling urethral catheter, initial encounter; N39.0 - Urinary tract infection, site not specified (5) CHF exacerbation Current Visit: Yes Status: Acute Assessment and plan: Will start diuresing the patient. Patient is on pressors support. IV lasix 40 mg BID. Had LHC on 09/13 showing minimal 2 vessel disease. Last echo was on 07/16 with EF of 45%. Will repeat limited echo. monitor I&Os. Qualifiers: Heart failure type: systolic Qualified Code(s): I50.23 - Acute on chronic systolic (congestive) heart failure (6) Elevated troponin Current Visit: No Status: Acute Assessment and plan: Likely demand ischemia. will trend. check limited echo. Recent LHC with minimal disease. (7) Lactic acid acidosis Current Visit: Yes Status: Acute Assessment and plan: Lactic acid is 3.7 likely from septic shock. Minimal IV fluids given due to CHF. Will repeat a lactic acid as patient has received abx already and was hydrated somewhat. (8) History of DVT (deep vein thrombosis) Current Visit: Yes Status: Acute Assessment and plan: Hold eliquis for now. 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 H/H has been slowly dropping since July. hgb was 16.8 on 07/30/2017. No signs of bleeding. Will check FOBT. check iron studies. Probably best to consider IVC filter (9) Anemia Current Visit: No Status: Acute Assessment and plan: As above. H/H has been slowly dropping since July. hgb was 16.8 on 07/30/2017. No signs of bleeding. Will check FOBT. check iron studies Qualifiers: Anemia type: unspecified type Qualified Code(s): D64.9 - Anemia, unspecified (10) Hypertension Current Visit: No Status: Chronic Assessment and plan: Hold antihypertensives for now. Qualifiers: Hypertension type: unspecified Qualified Code(s): I10 - Essential (primary ) hypertension (11) Diabetes mellitus Current Visit: No Status: Chronic Assessment and plan: will place on SSI. Accucheks. Qualifiers: Diabetes mellitus type: type 2 Diabetes mellitus prison insulin use: without salvage determiner use Diabetes mellitus complication status: with kidney complications Diabetes mellitus complication detail: with chronic kidney disease Chronic kidney disease stage: stage 3 (moderate) Qualified Code(s): E11.22 - Type 2 diabetes mellitus with diabetic chronic kidney disease; N18.3 - Chronic kidney disease, stage 3 (moderate) (12) CKD (chronic kidney disease) Current Visit: No Status: Chronic Qualifiers: Chronic kidney disease stage: stage 3 (moderate) Qualified Code(s): N18.3 - Chronic kidney disease, stage 3 (moderate) (13) DVT prophylaxis Current Visit: No Status: Acute Assessment and plan: heparin SQ - Time Spent With Patient >45 min were spent on the care of the patient.
[2017-10-03] MEDS ORDERED: *HR* Norepinephrine 4 MG/4 ML VIAL IVC ONE (23:26)
[2017-10-03] MEDS ORDERED: D5% in Water 250 ML ONE (23:26)
[2017-10-03] MEDS ORDERED: Vancomycin 1,750 MG in 0.9 % Sodium Chloride 250 ML IVPB SCH (23:45)
[2017-10-04] MEDS: Phenylephrine 20 MG in D5% in Water 250 ML IVC SCH ×2 (00:40→23:48)
[2017-10-04] MEDS: Insulin LISPRO 300 UNITS/3 ML VIAL SQ SCH ×5 (00:44→23:50)
[2017-10-04 00:52] LABS: VBG Ionized Calcium 0.97 mmol/L (1.15-1.35)
[2017-10-04] MEDS: Furosemide 40 MG/4 ML VIAL IVP SCH ×3 (00:53→18:43)
[2017-10-04 01:02] LABS: Basophils # 0.1 K/mcL (0.0-0.2); Basophils % 0.2 %; Hematocrit 34.2 % (37.5-50.1); Hemoglobin 11.2 g/dL (12.9-16.9); Immature Granulocytes % 8.4 % (0-4); Lymphocytes # 0.7 K/mcL (0.6-4.6); Lymphocytes % 2.2 %; Mean Corpuscular HGB Conc 32.7 g/dL (31.6-35.5); Mean Corpuscular Hemoglobin 31.9 pg (28.0-33.3); Mean Corpuscular Volume 97.4 fL (83.0-100.0); Mean Platelet Volume 9.1 fL (9.4-12.4); Monocytes # 1.5 K/mcL (0.0-1.3); Monocytes % 4.4 %; Platelet Count 271 K/mcL (140-400); Red Blood Count 3.51 M/mcL (4.19-5.50); Red Cell Distribution Width 14.6 % (11.5-14.5); Segmented Neutrophils % 84.8 %
[2017-10-04 01:07] LABS: Calcium 7.4 mg/dL (8.6-10.3); Magnesium 1.7 mg/dL (1.6-2.6); Phosphorous 5.1 mg/dL (2.7-4.5); Potassium 4.7 mEq/L (3.5-5.1)
[2017-10-04 01:36] LABS: Folate 8.3 ng/mL (3.0-16.0); Troponin I 0.38 ng/mL (< 0.04)
[2017-10-04] MEDS: Norepinephrine 4 MG in D5% in Water 250 ML IVC SCH ×5 (01:38→20:11)
[2017-10-04 01:48] LABS: Ferritin 1262 ng/mL (20-250); Iron < 10 mcg/dL (65-175); Transferrin 86 mg/dL (203-362)
[2017-10-04] MEDS ORDERED: Piperacillin/Tazobactam 3.375 GM in 0.9 % Sodium Chloride Mini Bag 100 ML IVPB SCH (04:00)
[2017-10-04] MEDS: Ipratropium/Albuterol Neb 3 ML IH SCH ×4 (04:20→22:03)
[2017-10-04] MEDS: *HR* Heparin 5,000 UNIT/ML VIAL SQ SCH ×3 (05:26→20:21)
[2017-10-04 06:07] LABS: Basophils % 0.2 %
[2017-10-04 06:09] LABS: Basophils # 0.1 K/mcL (0.0-0.2); Hematocrit 33.3 % (37.5-50.1); Hemoglobin 10.7 g/dL (12.9-16.9); Immature Granulocytes % 6.5 % (0-4); Lymphocytes # 0.7 K/mcL (0.6-4.6); Lymphocytes % 2.6 %; Mean Corpuscular HGB Conc 32.1 g/dL (31.6-35.5); Mean Corpuscular Hemoglobin 30.7 pg (28.0-33.3); Mean Corpuscular Volume 95.4 fL (83.0-100.0); Mean Platelet Volume 9.1 fL (9.4-12.4); Monocytes % 3.5 %; Platelet Count 234 K/mcL (140-400); Red Blood Count 3.49 M/mcL (4.19-5.50); Red Cell Distribution Width 14.6 % (11.5-14.5); Segmented Neutrophils % 87.2 %
[2017-10-04 06:10] LABS: Neutrophils # 24.9 K/mcL (1.6-8.9)
[2017-10-04 06:32] LABS: Calcium 7.7 mg/dL (8.6-10.3); Potassium 4.7 mEq/L (3.5-5.1)
[2017-10-04 06:39] LABS: Platelet Estimate Normal (Normal); Toxic Granulation Present (Not Present)
[2017-10-04 08:02] LABS: ABG Base Excess 0 mEq/L (-2 to 3); ABG HCO3 25 mEq/L (21-27); ABG Oxygen Saturation 99 % (95-98); ABG PCO2 40 mmHg (35-45); ABG PO2 127 mmHg (85-104); ABG TCO2 26 mEq/L (20-26); Blood Gas Modality VC; Blood Gas PEEP 5 cm H2O; Blood Gas Respiration Rate 14; Blood Gas VT 550 cc
[2017-10-04] MEDS: Gabapentin 300 MG CAPSULE PO SCH ×2 (08:08→20:20)
[2017-10-04] MEDS: Lacri-Lube 3.5 GM TUBE BOTH EYES SCH ×2 (08:11→20:14)
[2017-10-04 08:41] LABS: VBG Ionized Calcium 1.01 mmol/L (1.15-1.35)
[2017-10-04] MEDS ORDERED: Aspirin Enteric Coated 81 MG Tablet PO SCH (09:00)
[2017-10-04] MEDS ORDERED: Apixaban 5 MG TABLET PO SCH (09:00)
[2017-10-04] MEDS ORDERED: Cholecalciferol (D-3) 1,000 UNIT TABLET PO SCH (09:00)
[2017-10-04] MEDS: FentaNYL (PF) 1,000 MCG in 0.9 % Sodium Chloride 80 ML IVC SCH ×2 (09:04→21:33)
[2017-10-04] MEDS: Meropenem 1,000 MG in 0.9 % Sodium Chloride Mini Bag 100 ML IVPB SCH ×2 (09:34→18:44)
[2017-10-04] MEDS ORDERED: *HR* Rocuronium Bromide 100 MG/10 ML VIAL IVC ONE (10:48)
--- NOTE | 2017-10-04 10:56 | Infectious Disease Consult ---
Date of Encounter: 10/04/17 Time of Encounter: 11:00 Assessment and Plan (1) Septic shock Status: Acute Assessment and plan: Patient had 3 of 4 SIRS criteria on presentation with leukocytosis, tachypnea, and tachycardia Lactic acid was 3.7 upon presentation, trending down to 3.1 this morning Source and causative organism is unclear at this time as he does have multiple pressure ulcers and history of emphysematous cystitis Obtain CT chest/abdomen/pelvis for further evaluation Ordered CRP, ESR, and RIP Still requiring pressor support at this time Blood cultures x2 collected in ED are pending (2) Emphysematous cystitis Status: Chronic Assessment and plan: Last two abdominal CTs from 09/01/17 and 09/21/17 both demonstrated gas within bladder wall Causative organism unclear He did have previous urine cultures positive for E. Coli ESBL on 09/01/17 and Patient has been seen by urology as outpatient but has missed multiple recent visits Will obtain CT abdomen pelvis Currently being treated with Vancomycin (day 2) and Meropenem (day 1) He did receive 2 doses of Zosyn since admission Await urine and blood culture results Duration will be based on clinical picture Continue to monitor renal function and avoid nephrotoxins Dose antibiotics based on renal function (3) Pressure ulcer of coccygeal region Status: Acute Assessment and plan: Unstageable sacral ulcer currently being follow by wound care Unable to rule out if they are causing osteomyelitis Recommend obtaining CT ab/pel for further evaluation Continue with current antibiotic regimen as above Qualifiers: Pressure ulcer stage: unstageable Qualified Code(s): L89.150 - Pressure ulcer of sacral region, unstageable (4) Pressure ulcer of ankle, right, unstageable Status: Acute Assessment and plan: plan as above (5) Leukocytosis Status: Acute Assessment and plan: White count initially 14 upon arrival but increased to 33 This morning down to 28.5 He did receive 100 mg of Solu-cortef in the ED Currently on antibiotic regimen as above Continue to trend CBC Qualifiers: Leukocytosis type: unspecified Qualified Code(s): D72.829 - Elevated white blood cell count, unspecified (6) Diabetes mellitus Status: Chronic Assessment and plan: Patient's accucheck upon arrival to ED was 130 Doubt hypoglycemia was cause of his altered mental status SSI and accuchecks per primary team Qualifiers: Diabetes mellitus type: type 2 Diabetes mellitus alf insulin use: without alf use Diabetes mellitus complication status: with kidney complications Diabetes mellitus complication detail: with chronic kidney disease Chronic kidney disease stage: stage 3 (moderate) Qualified Code(s): E11.22 - Type 2 diabetes mellitus with diabetic chronic kidney disease; N18.3 - Chronic kidney disease, stage 3 (moderate) (7) CKD (chronic kidney disease) Status: Chronic Qualifiers: Chronic kidney disease stage: stage 3 (moderate) Qualified Code(s): N18.3 - Chronic kidney disease, stage 3 (moderate) (8) Hypertension Status: Chronic Qualifiers: Hypertension type: unspecified Qualified Code(s): I10 - Essential (primary ) hypertension (9) History of DVT (deep vein thrombosis) Status: Acute (10) Systolic heart failure Status: Chronic Qualifiers: Heart failure chronicity: acute on chronic Qualified Code(s): I50.23 - Acute on chronic systolic (congestive) heart failure Infectious Disease HPI - Data of Consult Patient: new to practice Consult date: 10/04/17 Requesting Physician: Davian Pope Primary Care Provider: Radha Jones CNP - Consult Narrative Reason for consult: ESBL UTI, septic shock History of present illness: Mr. Vázquez is a 87 year old male with past medical history of HTN, DM, CKD stage 3, h/o DVT on Eliquis, Alzheimer's, systolic CHF with EF of 45%. He was admitted to the hospital last night on October 03 for unresponsiveness. We are consulted October 04 for history of ESBL UTI and septic shock. Patient is a 87 year old male with medical history as stated above. He was recently discharged from here September 26 for decreased mentation which was thought to be secondary to hypoglycemia. He was sent to [facility]. Over the past 2 days, family noticed that he had decreased mentation and poor appetite. He apparently had a CXR done at the residential which showed pneumonia and he was started on oral antibiotics. He went wound care yesterday for his lower extremity ulcers where he continued to have decreased mentation and had increased work of breathing and subsequently sent to the ER. He was initially afebrile at 99.6, was borderline tachycardic in the 90s, was tachypneic at 24, and hypotensive at 93/37. He had oxygen saturations in the 70-80s and was intubated in the ER. Central line was also placed and he was started on Levophed and was admitted to the ICU. He was started on Vancomycin and Zosyn, but Zosyn was switched to Meropenem this morning given his history of ESBL E. Coli in the urine. According to chart review, he has had multiple episodes of UTIs with ESBL E. Coli cultured. His first positive culture for E. Coli ESBL was 06/18/2016 but there is no hospital or outpatient records of why this was obtained or if he received treatment. He was admitted for weakness on 09/01/2017 where urine again showed E. Coli ESBL and was started on Meropenem and switched to Ertapenem. He had a CT scan during this visit which showed emphysematous cystitis and urology was consulted. He would receive 6 days total of IV Ertapenem and was discharged with 8 additional days to complete 14 day course. During his last admission 2 weeks ago, he was started on Meropenem but this was stopped after urine cultures were negative. During today's exam, but patient is intubated and sedated in the ICU but is alert when saying his name. He shakes his head when asked if he was in any pain or having trouble breathing. No family at bedside at the time. CC: Davian Pope Past Med Surg Social Fam HX - Past Medical History Medical history: arthritis, CHF, DVT, diabetes, hypertension, kidney stones, renal disease, other Additional medical history: UTI,PAcer, Alzheimers, Cellulitis Psychiatric history: anxiety - Past Surgical History Surgical History: herniorrhaphy, pacemaker/AICD Additional surgical history: I7D LLE. Back Surgery. Right knee. von wellenbrand. bilat carpal tunnel - Social History Smoking Status: Never smoker Smokeless Tobacco Status: No Alcohol use: none, rarely Drug use: none - Family History Father Hx Family Cardiac Disorders: Yes Hx Family Respiratory Disorders: No Hx Family Cancer: No Hx Family GI Disorders: No Hx Family Endocrine Disorder: No Hx Family Neuromuscular Disorders: No Hx Family Neurologic Disorders: No Hx Family HEENT Disorders: No Hx Family Autoimmune Disorders: No Mother Family Member Ethnicity: Non- Living Status: Hx Family Cardiac Disorders: No Hx Family Respiratory Disorders: No Hx Family Cancer: No Hx Family GI Disorders: No Hx Family Endocrine Disorder: No Hx Family Neuromuscular Disorders: No Hx Family Neurologic Disorders: No Hx Family HEENT Disorders: No Hx Family Autoimmune Disorders: No Infectious Disease-CN:Meds Tamsulosin [Flomax] 0.4 mg PO DAILY capsule 08/06/15 [Rx] Atorvastatin [Lipitor] 40 mg PO DAILY 09/07/15 [History] Cholecalciferol (D-3) [Vitamin D] 2,000 unit PO DAILY 05/09/17 [History] Furosemide [Lasix] 40 mg PO DAILY 07/27/17 [History] Apixaban [Eliquis] 2.5 mg PO BID #60 tablet 07/30/17 [Rx] Aspirin Enteric Coated [Aspirin EC] 81 mg PO DAILY #30 tablet. 07/30/17 [Rx] Ondansetron [Zofran ODT] 8 mg PO TID PRN 09/01/17 [History] PARoxetine HCl [Paroxetine HCl] 10 mg PO QAM 09/01/17 [History] Gabapentin [Neurontin] 300 mg PO BID 7 Days #14 capsule 09/06/17 [Rx] Acetaminophen [Tylenol Arthritis] 650 mg PO TID 09/13/17 [History] Docusate [Colace] 100 mg PO BID 09/13/17 [History] Insulin LISPRO [HumaLOG] 0 units SQ TIDAC #1 each 09/24/17 [Rx] Losartan [Cozaar] 25 mg PO DAILY 09/26/17 [History] Benzonatate [Tessalon] 100 mg PO TID 10/03/17 [History] Ertapenem [INVanz] 1,000 mg IVPB DAILY 10/03/17 [History] Guaifenesin [Mucinex] 600 mg PO BID 10/03/17 [History] Ipratropium/Albuterol Neb [Duoneb] 3 ml IH Q6HR 10/03/17 [History] 3 Allergy/AdvReac Type Severity Reaction Status Date / Time No Known Allergies Allergy Verified 10/03/17 21:14 ROS unobtainable: due to endotracheal tube Exam - Constitutional Vitals: Temp Pulse Resp BP Pulse Ox 99.1 F 70 15 109/53 100 10/04/17 07:35 10/04/17 10:00 10/04/17 10:00 10/04/17 10:00 10/04/17 10:00 Exam: intubated and sedated - Head Head exam: Present: atraumatic, normocephalic - Respiratory Respiratory exam: Present: CTAB. Absent: respiratory distress, wheezes - Cardiovascular Cardiovascular exam: Present: tachycardia. Absent: diastolic murmur, systolic murmur - GI/Abdominal GI/Abdominal exam: Present: normal bowel sounds, soft. Absent: tenderness - Extremities Exam Extremities exam: Present: pedal edema. Absent: tenderness Additional comments: bilateral heel ulcers, unstageable sacral ulcer stsage 3 Infectious Disease CN: Results - Labs CBC & Chem 7: 10/06/17 04:50 10/06/17 04:50 Consult Discharge Plan - Plan Referrals: Radha Jones, [employer] MA[employer]GER [Primary Care Provider] - - Attending Attestation I examined this patient and my medical decision-making was reviewed with the Resident Physician. I agree with the documented findings, disposition and treatment plan as described except to the extent set forth below. This is an addendum to original report dictated by resident physician. Please refer to residents note for full detail. Patient is an 87-year-old gentleman with extensive past medical history mentioned above was admitted to the hospital ICU for septic shock likely secondary to UTI. Patient apparently was at the shelter facility and started having altered mental status and hypoglycemia and was sent to the MRSA department for evaluation. Since admission patient has been afebrile but has been tachycardic and tachypneic. Patient also has been hypotensive requiring pressors. Workup so far reveals no pneumonia on chest x-ray. There were 2 chest x-rays done both of them chills pulmonary congestion. Patient has been started on broad-spectrum antibiotics we will occult evaluated the patient and make further recommendations. Assessment and plan: Septic shock likely secondary to urosepsis but it is not very clear Acute respiratory failure on vent support Recent ESBL UTI Diabetes mellitus Chronic kidney disease History of DVT Recommendations: Repeat blood cultures 2 now. Check respiratory infectious panel Check inflammatory markers including CRP and ESR Patient is unable to give any adequate history so we will check a CT of abdomen and pelvis and maybe CT chest if it is okay with the pulmonary team. Await cultures to finalize Continue vancomycin and meropenem. Goal vancomycin trough around 15. Check MRSA screen if negative and no signs of pneumonia and consider DC the vancomycin If no signs of pseudomonas, DC meropenem and start ertapenem Monitor labs and for drug toxicity Discussed with the ICU team
[2017-10-04] MEDS: Pantoprazole 40 MG VIAL IVP SCH (11:03)
--- NOTE | 2017-10-04 11:05 | Palliative - Consult Note ---
<Jake Simon - Last Filed: 10/04/17 13:12> Date of Encounter: 10/04/17 Time of Encounter: 10:55 - Assessment and Plan (1) Goals of care, counseling/discussion Current Visit: Yes Status: Acute Assessment and plan: There was apparently some question about code status and end of life wishes in this patient. Although the patient is unable to respond verbally due to ET tube , he does respond appropriately to questions with head nods/gestures at this time. When asked about code status, he is very definitive that he wishes to remain a full code, and confirms this after discussion of the long-term effects of CPR. I did subsequently speak with his daughter, Floridalma, who is the MPOA and she affirmed that the patient does have an advanced directive, and has been clear with her that he wishes to receive CPR if he were to have a cardiac arrest event. She says that she was present for the initial conversation and subsequent conversations in which a provider very clearly explained the traumatic nature of CPR, and he still ensured that he would like to be full code. At that time, I was able to locate the MPOA and Advanced directive documentation uploaded in his ECW chart, and it is consistent with what I have been told by the patient and the patients Daughter/MPOA. Floridalma did say that she mentioned hospice initially on admission because it appeared to her and the family that the patient was facing imminent , and did not expect a recovery. She feels that in the situation that her fathers status worsens to the point of futility, she would likely change his code status and discharge home with comfort measures on hospice. She does feel that with the improvements he has made overnight that hospice and comfort care measures would be inappropriate at this time, and I agree with this statement. Currently, he is a poor candidate for hospice as he has chance of full recovery to baseline with appropriate treatment of his recurrent infections, which is currently underway. We will continue to follow from a distance, and readdress these concerns as needed if his clinical picture begins to deteriorate. (2) Pain Current Visit: Yes Status: Acute Assessment and plan: The patient is not in any notable discomfort at this time on fentanyl drip. Current management seems appropriate. We will add a bowel regimen for constipation with Senna BID per OG tube. (3) Acute respiratory failure with hypoxia Current Visit: Yes Status: Acute Assessment and plan: Currently intubated and stable (4) Septic shock Current Visit: Yes Status: Acute Assessment and plan: Likely secondary to ESBL UTI Improving slowly, clinical appearance has improved Managment per primary team (5) Systolic heart failure Current Visit: Yes Status: Chronic Assessment and plan: Acute on chronic HFrEF, in volume overloaded state LVEF last noted at 45% Management per primary team Qualifiers: Heart failure chronicity: acute on chronic Qualified Code(s): I50.23 - Acute on chronic systolic (congestive) heart failure Palliative-CN HPI - Data of Consult Patient: new to practice Consult date: 10/04/17 Requesting Physician: Davian Pope Primary Care Provider: Radha Jones CNP - Consult Narrative Palliative Care/Comfort Measures: Palliative care Reason for consult: Goals of treatment History of present illness: Mr. Vázquez is an 87yo man with history of CHF with EF 45%, pacer, HTN, DM, CKD stage 3, who has been hospitalized multiple times since 06/2017 with severe infections including ESBL UTI on 09/29/17. He was most recently discharged to [facility] , however he apparently began to develop worsening mentation. He was transported to [facility] for wound care to chronic stasis ulcers in the legs, however it was noted at that time that he was altered and had poor mentation. He was taken to the ED where he was found to have severe sepsis/septic shock with acute hypoxic respiratory failure secondary to new HCAP. He was intubated and transferred to the ICU with broad spectrum antibiotic coverage, where he has remained on mechanical ventilation since. Overnight, the patient did see improvement in lactic acidosis, however he had increased WBC. He is alert this morning, and responds appropriately to commands. CC: Davian Pope Past Med Surg Social Fam HX - Past Medical History Medical history: arthritis, CHF, DVT, diabetes, hypertension, kidney stones, renal disease, other Additional medical history: UTI,PAcer, Alzheimers, Cellulitis Psychiatric history: anxiety - Past Surgical History Surgical History: herniorrhaphy, pacemaker/AICD Additional surgical history: I7D LLE. Back Surgery. Right knee. von wellenbrand. bilat carpal tunnel - Social History Smoking Status: Never smoker Smokeless Tobacco Status: No Alcohol use: none, rarely Drug use: none - Family History Father Hx Family Cardiac Disorders: Yes Hx Family Respiratory Disorders: No Hx Family Cancer: No Hx Family GI Disorders: No Hx Family Endocrine Disorder: No Hx Family Neuromuscular Disorders: No Hx Family Neurologic Disorders: No Hx Family HEENT Disorders: No Hx Family Autoimmune Disorders: No Mother Family Member Ethnicity: Non- Living Status: Hx Family Cardiac Disorders: No Hx Family Respiratory Disorders: No Hx Family Cancer: No Hx Family GI Disorders: No Hx Family Endocrine Disorder: No Hx Family Neuromuscular Disorders: No Hx Family Neurologic Disorders: No Hx Family HEENT Disorders: No Hx Family Autoimmune Disorders: No Medications and Allergies Tamsulosin [Flomax] 0.4 mg PO DAILY capsule 08/06/15 [Rx] Atorvastatin [Lipitor] 40 mg PO DAILY 09/07/15 [History] Cholecalciferol (D-3) [Vitamin D] 2,000 unit PO DAILY 05/09/17 [History] Furosemide [Lasix] 40 mg PO DAILY 07/27/17 [History] Apixaban [Eliquis] 2.5 mg PO BID #60 tablet 07/30/17 [Rx] Aspirin Enteric Coated [Aspirin EC] 81 mg PO DAILY #30 tablet.dr 07/30/17 [Rx] Ondansetron [Zofran ODT] 8 mg PO TID PRN 09/01/17 [History] PARoxetine HCl [Paroxetine HCl] 10 mg PO QAM 09/01/17 [History] Gabapentin [Neurontin] 300 mg PO BID 7 Days #14 capsule 09/06/17 [Rx] Acetaminophen [Tylenol Arthritis] 650 mg PO TID 09/13/17 [History] Docusate [Colace] 100 mg PO BID 09/13/17 [History] Insulin LISPRO [HumaLOG] 0 units SQ TIDAC #1 each 09/24/17 [Rx] Losartan [Cozaar] 25 mg PO DAILY 09/26/17 [History] Benzonatate [Tessalon] 100 mg PO TID 10/03/17 [History] Ertapenem [INVanz] 1,000 mg IVPB DAILY 10/03/17 [History] Guaifenesin [Mucinex] 600 mg PO BID 10/03/17 [History] Ipratropium/Albuterol Neb [Duoneb] 3 ml IH Q6HR 10/03/17 [History] 3 Allergy/AdvReac Type Severity Reaction Status Date / Time No Known Allergies Allergy Verified 10/03/17 21:14 ROS unobtainable: due to endotracheal tube Review of systems: Complete review of systems cannot be obtained, however the patient does affirm by nods that his pain is well controlled. Palliative Care-Exam - Constitutional Vitals: Temp Pulse Resp BP Pulse Ox 99.1 F 70 15 109/53 100 10/04/17 07:35 10/04/17 10:00 10/04/17 10:00 10/04/17 10:00 10/04/17 10:00 Exam: Gen: Vitals noted. No acute distress. ET tube in place HEENT: PERRL/EOMI, Normocephalic, atraumatic. Mucous membranes appear moist. Cardiac: RRR, no murmur, +S1/S2 Pulmonary: CTA bilaterally, no wheezes, rales or rhonchi, equal chest expansion however seemingly diminished b/l Abdomen: soft, nontender, BS noted, no guarding MSK: ROM intact, no joint swelling noted Extremities: 3+ b/l LE edema Neuro: Alert and responds appropriately to questions and commands, moves all extremities, no focal deficits Psych: Appropriate mood and behavior Internal Medicine - CN: Reslt - Labs CBC & Chem 7: 10/04/17 05:50 10/04/17 05:50 Labs: Short CBC 10/04/17 10/04/17 Range/Units 00:30 05:50 WBC 33.0 H* D 28.5 H (4.3-11.1) K/mcL Hgb 11.2 L D 10.7 L (12.9-16.9) g/dL Hct 34.2 L 33.3 L (37.5-50.1) % Plt Count 271 234 (140-400) K/mcL Neutrophils # 28.0 H 24.9 H (1.6-8.9) K/mcL BMP 10/04/17 10/04/17 00:30 05:50 Sodium 133 L 131 L Potassium 4.7 4.7 Chloride 98 97 L Carbon Dioxide 21 L 21 L BUN 56 H 56 H Creatinine 1.63 H 1.61 H Glucose 155 H 212 H Calcium 7.4 L 7.7 L Cardiac Enzymes 10/04/17 10/04/17 Range/Units 00:30 05:50 Troponin I 0.38 H* 0.50 H* (< 0.04) ng/mL - ABG Interpretation ABG results: ABG ABG pH 7.40 pH Units (7.32-7.45) 10/04/17 07:56 ABG pCO2 40 mmHg (35-45) 10/04/17 07:56 ABG pO2 127 mmHg (85-104) H 10/04/17 07:56 ABG O2 Saturation 99 % (95-98) H 10/04/17 07:56 PT/INR, D-dimer PT 17.9 Seconds (9.4-12.1) H 10/03/17 19:14 - Impressions Impressions KUB X-Ray 10/03/17 22:30 IMPRESSION: The enteric tube tip is in the proximal stomach and the side port is at the level of the gastroesophageal junction. Further advancement of the tube is recommended. D/ / 10/03/2017 22:57:25 Kvng Porras MD / en[facility] Interpreting Provider: Kvng Porras MD Consult Discharge Plan - Plan Referrals: Radha Jones CNP [Primary Care Provider] - Palliative Quality Palliative Quality: Screen for Code Status: Yes, Screen for Goals of Care: Yes, Screen for Pain: Yes, If Pain Regimen Started, Initiate Bowel Regimen: Yes, Screen for Nausea/Vomitting: Yes Code Status: 10/03/17 23:11 Resuscitation Status: Active [RES] Routine Comment: Resuscitation Status: Full Code <Antonio Rios Carlota - Last Filed: 10/05/17 07:01> Date of Encounter: 10/05/17 Palliative-CN HPI - Data of Consult Requesting Physician: Davian Pope Primary Care Provider: Radha Jones CNP - Consult Narrative History of present illness: Mr. Vázquez is a 87 year old male CC: Davian Pope Palliative Care-Exam - Constitutional Vitals: Temp Pulse Resp BP Pulse Ox 97.7 F 78 14 114/71 96 10/05/17 04:00 10/05/17 06:00 10/05/17 06:00 10/05/17 06:00 10/05/17 06:00 Internal Medicine - CN: Reslt - Labs CBC & Chem 7: 10/05/17 03:50 10/05/17 03:50 Labs: Short CBC 10/05/17 Range/Units 03:50 WBC 19.1 H (4.3-11.1) K/mcL Hgb 10.0 L (12.9-16.9) g/dL Hct 31.5 L (37.5-50.1) % Plt Count 175 (140-400) K/mcL Neutrophils # 16.7 H (1.6-8.9) K/mcL BMP 10/05/17 03:50 Sodium 134 L Potassium 4.1 Chloride 98 Carbon Dioxide 24 BUN 63 H Creatinine 1.53 H Glucose 211 H Calcium 7.9 L - ABG Interpretation ABG results: ABG ABG pH 7.38 pH Units (7.32-7.45) 10/05/17 06:15 ABG pCO2 43 mmHg (35-45) 10/05/17 06:15 ABG pO2 81 mmHg (85-104) L 10/05/17 06:15 ABG O2 Saturation 96 % (95-98) 10/05/17 06:15 PT/INR, D-dimer PT 17.9 Seconds (9.4-12.1) H 10/03/17 19:14 - Impressions Impressions KUB X-Ray 10/04/17 10:41 IMPRESSION: Tip of the orogastric tube is within the stomach. D/ : / 10/04/2017 11:10:23 Ole Ramos MD / [facility] Interpreting Provider: Ole Ramos MD Abdomen/Pelvis CT 10/04/17 17:00 IMPRESSION: 1. Cardiomegaly with trace bilateral pleural effusions and diffuse anasarca, presumed related to congestive heart failure. Mild interstitial pulmonary edema may be present. 2. Extensive opacities are present in the lower lobes, which could be related to pneumonia and/or atelectasis (examination was performed in the expiratory phase). 3. Bethea catheter tip and balloon are present within the prostate. Air is present in the bladder lumen. Moderately enlarged prostate. 4. Gallstones with mild nonspecific distention of the gallbladder. No findings specific for acute cholecystitis are seen. 5. A 2.1 cm nodule is suspected in the right lobe of the thyroid. Further evaluation with thyroid ultrasound on a nonemergent basis is recommended as clinically indicated. D/ /04/2017 18:18:01 Kraig Mcneil MD / [facility] Interpreting Provider: Kraig Mcneil MD Chest CT 10/04/17 17:00 IMPRESSION: 1. Cardiomegaly with trace bilateral pleural effusions and diffuse anasarca, presumed related to congestive heart failure. Mild interstitial pulmonary edema may be present. 2. Extensive opacities are present in the lower lobes, which could be related to pneumonia and/or atelectasis (examination was performed in the expiratory phase). 3. Bethea catheter tip and balloon are present within the prostate. Air is present in the bladder lumen. Moderately enlarged prostate. 4. Gallstones with mild nonspecific distention of the gallbladder. No findings specific for acute cholecystitis are seen. 5. A 2.1 cm nodule is suspected in the right lobe of the thyroid. Further evaluation with thyroid ultrasound on a nonemergent basis is recommended as clinically indicated. D/ /04/2017 18:18:01 Kraig Mcneil MD / [facility]ana Interpreting Provider: Kraig Mcneil MD - Attending Attestation I examined this patient and my medical decision-making was reviewed with the Resident Physician. I agree with the documented findings, disposition and treatment plan as described except to the extent set forth below. Palliative Quality Code Status: 10/03/17 23:11 Resuscitation Status: Active [RES] Routine Comment: Resuscitation Status: Full Code
--- NOTE | 2017-10-04 11:11 | Pulmonology Consult Note ---
<Armando Gonzales - Last Filed: 10/04/17 11:29> Date of Encounter: 10/04/17 Time of Encounter: 09:00 Assessment and Plan (1) Acute respiratory failure with hypoxia Current Visit: Yes Status: Acute Multifactorial with CHF exacerbation and HCAP. On vent. O2 Saturation of 100% with 40% FIO2. - Consult to palliative care put in. Palliative care has spoken to patient and his daughter. They continue to wish to be full code status. (2) Septic shock Current Visit: Yes Status: Acute Suspected source HCAP vs. UTI vs. ulcers. Currently on 2 pressors: norepi and phenylephrine. Current blood pressure at 119/55. Lactic acid has decreased from 3.7 down to 3.1 since arrival. WBC has increased from 14.4 up to 28.5 today. He is currently on day 2 of vancomycin and zosyn. - Switched zosyn to meopenem given history of ESBL. - Continue to trend lactic acid. - Continue vancomycin. - Follow-up with blood cultures. - continue pressor support. - No IVF due to CHF exacerbation. (3) HCAP (healthcare-associated pneumonia) Current Visit: Yes Status: Acute Patient on vanc and zosyn day 2. WBC count has increased from 14.4 up to 28.5 today. - Changed zosyn to meropenem. - Continue vancomycin. - Follow-up with blood cultures. - Follow-up with sputum cultures. Chest X-Ray 10/03/17 20:56 IMPRESSION: An endotracheal tube has been placed in good position. Persistent pulmonary vascular congestion versus AP portable supine low volume technique. D/ / Domenico Bañuelos MD / Domenico Bañuelos MD Interpreting Provider: Domenico Bañuelos MD X-Ray 10/04/17 10:41 IMPRESSION: Tip of the orogastric tube is within the stomach. D/ : / 10/04/2017 11:10:23 Ole Ramos MD / [facility] Interpreting Provider: Ole Ramos MD (4) UTI (urinary tract infection) Current Visit: Yes Status: Acute UA was signs of infection. Patient has a history of ESBL E. Coli. - Changed zosyn to meropenem. - Follow-up with urine cultures. - Consult to Infectious Disease placed. (5) CHF exacerbation Current Visit: Yes Status: Acute BNP of 1124. Patient has b/l pitting edema. Presented with dyspnea. Had LHC on showing minimal 2 vessel disease. Last echo was on 07/16 with EF of 45%. Intake of 835 today with an output of 800. Yesterday with an intake of 1856 with 0 output. - Continue lasix IV 40 mg BID. - Monitor I & O's. - Repeat echocardiogram. (6) Elevated troponin Current Visit: No Status: Acute Tropnin levels 0.33, 0.38, and 0.50. Likely secondary to demand ischemia. (7) Anemia Current Visit: No Status: Acute H/H has been slowly dropping since July. hgb was 16.8 on 07/30/2017. No signs of bleeding. Hgb at 9.7 on arrival. Currently at 10.7. Iron studies shows iron levels < 10, decreased transferrin at 86, and elevated ferritin at 1262. Likely secondary to chronic disease. - Continue to trend H/H. GI prophylaxis: On protonix. (8) Diabetes mellitus Current Visit: No Status: Chronic Glucose of 168. - Continue glucose sliding scale. - Continue accuchecks. (9) CKD (chronic kidney disease) Current Visit: No Status: Chronic Creatinine baseline from 1.5-1.6. Current creatinine at 1.61. (10) History of DVT (deep vein thrombosis) Current Visit: Yes Status: Acute Eliquis on hold. (11) Pressure ulcer of coccygeal region Current Visit: No Status: Acute Wound care consult ordered. (12) Pressure ulcer of ankle, right, unstageable Current Visit: No Status: Acute See plan above. (13) DVT prophylaxis Current Visit: No Status: Acute Heparin 5000 U SQ BID. History of Present Illness Consult date: 10/04/17 Requesting physician: Davian Pope Reason for consult: hypoxemia Chief complaint: SOB, dyspnea History of present illness: Patient is a 87 Y M with a PMH of a pacemaker, DM, CKD stage 3, DVT (on eliquis) , Alzheimer's Disease, and CHF that presents for decreased responsiveness. Patient was recently discharged from here on 09/24/17 after suffering from decreased mentation which was suspected to be due to hypoglycemia. He was discharged to a nursing facility and was brought here yesterday for worsening mental status for the past 2 days. Chest x-ray done at the nursing facility showed PNA and he was started on antibiotics. When transferred here, his oxygen sturation was int he 70%-80% range. He was subsequently intubated. Pressors were started due hypotension. Lab done at the ED showed a leukocytosis of 14.4. BNP was elevated at 1000 and lactic acid was at 3.7. Chest x-ray showed a new hilar infiltrate. Urine labs showed possible UTI. Past Med Surg Social Fam HX - Past Medical History Medical history: arthritis, CHF, DVT, diabetes, hypertension, kidney stones, renal disease, other Additional medical history: UTI,PAcer, Alzheimers, Cellulitis Psychiatric history: anxiety - Past Surgical History Surgical History: herniorrhaphy, pacemaker/AICD Additional surgical history: I7D LLE. Back Surgery. Right knee. von wellenbrand. bilat carpal tunnel - Social History Smoking Status: Never smoker Smokeless Tobacco Status: No Alcohol use: none, rarely Drug use: none - Family History Father Hx Family Cardiac Disorders: Yes Hx Family Respiratory Disorders: No Hx Family Cancer: No Hx Family GI Disorders: No Hx Family Endocrine Disorder: No Hx Family Neuromuscular Disorders: No Hx Family Neurologic Disorders: No Hx Family HEENT Disorders: No Hx Family Autoimmune Disorders: No Mother Family Member Ethnicity: Non- Living Status: Hx Family Cardiac Disorders: No Hx Family Respiratory Disorders: No Hx Family Cancer: No Hx Family GI Disorders: No Hx Family Endocrine Disorder: No Hx Family Neuromuscular Disorders: No Hx Family Neurologic Disorders: No Hx Family HEENT Disorders: No Hx Family Autoimmune Disorders: No Medications and Allergies Tamsulosin [Flomax] 0.4 mg PO DAILY capsule 08/06/15 [Rx] Atorvastatin [Lipitor] 40 mg PO DAILY 09/07/15 [History] Cholecalciferol (D-3) [Vitamin D] 2,000 unit PO DAILY 05/09/17 [History] Furosemide [Lasix] 40 mg PO DAILY 07/27/17 [History] Apixaban [Eliquis] 2.5 mg PO BID #60 tablet 07/30/17 [Rx] Aspirin Enteric Coated [Aspirin EC] 81 mg PO DAILY #30 tablet. 07/30/17 [Rx] Ondansetron [Zofran ODT] 8 mg PO TID PRN 09/01/17 [History] PARoxetine HCl [Paroxetine HCl] 10 mg PO QAM 09/01/17 [History] Gabapentin [Neurontin] 300 mg PO BID 7 Days #14 capsule 09/06/17 [Rx] Acetaminophen [Tylenol Arthritis] 650 mg PO TID 09/13/17 [History] Docusate [Colace] 100 mg PO BID 09/13/17 [History] Insulin LISPRO [HumaLOG] 0 units SQ TIDAC #1 each 09/24/17 [Rx] Losartan [Cozaar] 25 mg PO DAILY 09/26/17 [History] Benzonatate [Tessalon] 100 mg PO TID 10/03/17 [History] Ertapenem [INVanz] 1,000 mg IVPB DAILY 10/03/17 [History] Guaifenesin [Mucinex] 600 mg PO BID 10/03/17 [History] Ipratropium/Albuterol Neb [Duoneb] 3 ml IH Q6HR 10/03/17 [History] 3 Allergy/AdvReac Type Severity Reaction Status Date / Time No Known Allergies Allergy Verified 10/03/17 21:14 ROS unobtainable: other (Patient is intubated however was was alert enough to answer a few basic questions. ) All Systems: The remainder of the systems were reviewed and are negative - Cardiovascular Cardiovascular: dyspnea, no chest pain, no lightheadedness, no palpitations - Respiratory Respiratory: dyspnea - Gastrointestinal Gastrointestinal: no abdominal pain, no nausea Physical Examination Vital Signs: Vital Signs, Last 4 Hours Temp Pulse Resp BP Pulse Ox 10/04/17 10:00 70 15 109/53 100 10/04/17 09:00 72 16 117/54 100 10/04/17 08:00 70 16 119/55 100 10/04/17 07:35 99.1 F 16 119/57 99 General appearance: no acute distress Eyes: nonicteric ENT: oropharynx moist Neck: supple Effort: normal Inspection: normal Auscultation: bilateral: clear Percussion: bilateral: not dull Tactile fremitus: bilateral: normal Cardiovascular: regular rate and rhythm Gastrointestinal: normoactive bowel sounds, non-distended Integumentary: decubitus ulcer (B/L calcaneal ulcers. R worse than L. ) Extremities: no cyanosis, pink and warm, pulses normal, edema (+3 b/l pedal pitting edema) Musculoskeletal: no deformities other (Patient was able to respond to questions asked. ) mood appropriate, affect normal Ventilator Settings Ventilator Settings: Ventilator Settings, Last 8 Hours Ventilator Tidal Volume 550 Setting Ventilator Tidal Volume 550 Setting Ventilator Tidal Volume 550 Setting Ventilator Tidal Volume 550 Setting Ventilator Tidal Volume 550 Setting Ventilator Tidal Volume 550 Setting Ventilator Tidal Volume 550 Setting Ventilator Tidal Volume 550 Setting Ventilator Tidal Volume 550 Setting Ventilator Respiratory Rate 14 Setting Ventilator Respiratory Rate 14 Setting Ventilator Respiratory Rate 14 Setting Ventilator Respiratory Rate 14 Setting Ventilator Respiratory Rate 14 Setting Ventilator Respiratory Rate 14 Setting Ventilator Respiratory Rate 14 Setting Ventilator Respiratory Rate 14 Setting Ventilator Respiratory Rate 14 Setting Actual Respiratory Rate 17 Actual Respiratory Rate 16 Actual Respiratory Rate 16 Actual Respiratory Rate 16 Actual Respiratory Rate 16 Actual Respiratory Rate 16 Actual Respiratory Rate 14 Actual Respiratory Rate 15 Actual Respiratory Rate 14 Positive End Expiratory 5 Pressure Positive End Expiratory 5 Pressure Positive End Expiratory 5 Pressure Positive End Expiratory 5 Pressure Positive End Expiratory 5 Pressure Positive End Expiratory 5 Pressure Positive End Expiratory 5 Pressure Positive End Expiratory 5 Pressure Positive End Expiratory 5 Pressure Peak Inspiratory Airway 16 Pressure Peak Inspiratory Airway 17 Pressure Peak Inspiratory Airway 16 Pressure Peak Inspiratory Airway 15 Pressure Peak Inspiratory Airway 18 Pressure Peak Inspiratory Airway 17 Pressure Peak Inspiratory Airway 14 Pressure Peak Inspiratory Airway 16 Pressure Peak Inspiratory Airway 16 Pressure Results - Laboratory Findings CBC and BMP: 10/04/17 05:50 10/04/17 05:50 ABG ABG pH 7.40 pH Units (7.32-7.45) 10/04/17 07:56 ABG pCO2 40 mmHg (35-45) 10/04/17 07:56 ABG pO2 127 mmHg (85-104) H 10/04/17 07:56 ABG O2 Saturation 99 % (95-98) H 10/04/17 07:56 PT/INR, D-dimer PT 17.9 Seconds (9.4-12.1) H 10/03/17 19:14 Abnormal lab findings: Abnormal lab results WBC 28.5 K/mcL (4.3-11.1) H 10/04/17 05:50 RBC 3.49 M/mcL (4.19-5.50) L 10/04/17 05:50 Hgb 10.7 g/dL (12.9-16.9) L 10/04/17 05:50 Hct 33.3 % (37.5-50.1) L 10/04/17 05:50 RDW 14.6 % (11.5-14.5) H 10/04/17 05:50 MPV 9.1 fL (9.4-12.4) L 10/04/17 05:50 Immature Gran % 6.5 % (0-4) H 10/04/17 05:50 Neutrophils # 24.9 K/mcL (1.6-8.9) H 10/04/17 05:50 Toxic Granulation Present (Not Present) A 10/04/17 05:50 Dohle Bodies Present (Not Present) A 10/03/17 19:14 Polychromasia 1+ (Not Present) A 10/03/17 19:14 PT 17.9 Seconds (9.4-12.1) H 10/03/17 19:14 ABG pO2 127 mmHg (85-104) H 10/04/17 07:56 ABG O2 Saturation 99 % (95-98) H 10/04/17 07:56 Sodium 131 mEq/L (136-145) L 10/04/17 05:50 Chloride 97 mEq/L (98-107) L 10/04/17 05:50 Carbon Dioxide 21 mEq/L (23-29) L 10/04/17 05:50 BUN 56 mg/dL (8-23) H 10/04/17 05:50 Creatinine 1.61 mg/dL (0.70-1.30) H 10/04/17 05:50 Est GFR ( Amer) 50 (> 60) L 10/04/17 05:50 Est GFR (Non-Af Amer) 41 (> 60) L 10/04/17 05:50 BUN/Creatinine Ratio 35 (6-26) H 10/04/17 05:50 Glucose 212 mg/dL (70-105) H 10/04/17 05:50 POC Glucose 168 mg/dL (70-99) H 10/04/17 05:31 Lactic Acid 3.1 mmol/L (0.5-2.2) H 10/04/17 05:50 Calcium 7.7 mg/dL (8.6-10.3) L 10/04/17 05:50 Venous Ioniz Calcium 1.01 mmol/L (1.15-1.35) L 10/04/17 08:38 Phosphorus 5.1 mg/dL (2.7-4.5) H 10/04/17 00:30 Iron < 10 mcg/dL (65-175) L 10/04/17 00:30 Transferrin 86 mg/dL (203-362) L 10/04/17 00:30 Ferritin 1262 ng/mL (20-250) H 10/04/17 00:30 AST 41 Units/L (13-39) H 10/03/17 19:14 Alkaline Phosphatase 271 Units/L (34-104) H 10/03/17 19:14 Troponin I 0.50 ng/mL (< 0.04) H* 10/04/17 05:50 B-Natriuretic Peptide 1124 pg/mL (Less than 100) H 10/03/17 19:14 Serum Total Protein 4.4 g/dL (6.4-8.9) L 10/03/17 19:14 Albumin 1.9 g/dL (3.5-5.7) L 10/03/17 19:14 Albumin/Globulin Ratio 0.8 (1.1-2.2) L 10/03/17 19:14 Urine Clarity Cloudy (Clear) A 10/03/17 18:11 Urine Protein 30 mg/dL (Neg-Trace) H 10/03/17 18:11 Urine Blood Large (Negative) H 10/03/17 18:11 Ur Leukocyte Esterase Large (Negative) H 10/03/17 18:11 Urine Microscopic RBC 15-30 per hpf (0-3) H 10/03/17 18:11 Urine Microscopic WBC 30-50 per hpf (0-3) H 10/03/17 18:11 Urine Bacteria Many per hpf (None-Few) H 10/03/17 18:11 Ur Culture Indicated? YES (NO) A 10/03/17 18:11 - Clinical Findings Intake & Output: Intake & Output 10/03/17 10/04/17 10/04/17 23:59 07:59 15:59 Intake Total 697.1 / 1856.2 735 / 735 401.8 / 401.8 Output Total 800 / 800 Balance 697.1 / 1856.2 -65 / -65 401.8 / 401.8 Weight 123.2 kg Consult Discharge Plan - Plan Referrals: Radha Jones, OPERATOR SPECIALIST COMMUNICATIONS [Primary Care Provider] - <Batsheva Damico - Last Filed: 10/04/17 15:00> Date of Encounter: 10/04/17 All Systems: The remainder of the systems were reviewed and are negative Physical Examination Vital Signs: Vital Signs, Last 4 Hours Temp Pulse Resp BP Pulse Ox 10/04/17 14:00 99 15 109/57 100 10/04/17 13:00 70 15 108/49 100 10/04/17 12:05 98.1 F 10/04/17 12:00 70 16 87/47 100 10/04/17 11:12 70 15 109/53 100 10/04/17 11:00 70 15 113/65 100 Ventilator Settings Ventilator Settings: Ventilator Settings, Last 8 Hours Ventilator Tidal Volume 550 Setting Ventilator Tidal Volume 550 Setting Ventilator Tidal Volume 550 Setting Ventilator Tidal Volume 550 Setting Ventilator Tidal Volume 550 Setting Ventilator Tidal Volume 550 Setting Ventilator Tidal Volume 550 Setting Ventilator Tidal Volume 550 Setting Ventilator Tidal Volume 550 Setting Ventilator Tidal Volume 550 Setting Ventilator Respiratory Rate 14 Setting Ventilator Respiratory Rate 14 Setting Ventilator Respiratory Rate 14 Setting Ventilator Respiratory Rate 14 Setting Ventilator Respiratory Rate 14 Setting Ventilator Respiratory Rate 14 Setting Ventilator Respiratory Rate 14 Setting Ventilator Respiratory Rate 14 Setting Ventilator Respiratory Rate 14 Setting Ventilator Respiratory Rate 14 Setting Actual Respiratory Rate 15 Actual Respiratory Rate 15 Actual Respiratory Rate 16 Actual Respiratory Rate 17 Actual Respiratory Rate 15 Actual Respiratory Rate 17 Actual Respiratory Rate 16 Actual Respiratory Rate 16 Actual Respiratory Rate 16 Actual Respiratory Rate 16 Positive End Expiratory 5 Pressure Positive End Expiratory 5 Pressure Positive End Expiratory 5 Pressure Positive End Expiratory 5 Pressure Positive End Expiratory 5 Pressure Positive End Expiratory 5 Pressure Positive End Expiratory 5 Pressure Positive End Expiratory 5 Pressure Positive End Expiratory 5 Pressure Positive End Expiratory 5 Pressure Peak Inspiratory Airway 18 Pressure Peak Inspiratory Airway 18 Pressure Peak Inspiratory Airway 18 Pressure Peak Inspiratory Airway 17 Pressure Peak Inspiratory Airway 17 Pressure Peak Inspiratory Airway 16 Pressure Peak Inspiratory Airway 17 Pressure Peak Inspiratory Airway 16 Pressure Peak Inspiratory Airway 15 Pressure Peak Inspiratory Airway 18 Pressure Results - Laboratory Findings CBC and BMP: 10/04/17 05:50 10/04/17 05:50 ABG ABG pH 7.40 pH Units (7.32-7.45) 10/04/17 07:56 ABG pCO2 40 mmHg (35-45) 10/04/17 07:56 ABG pO2 127 mmHg (85-104) H 10/04/17 07:56 ABG O2 Saturation 99 % (95-98) H 10/04/17 07:56 PT/INR, D-dimer PT 17.9 Seconds (9.4-12.1) H 10/03/17 19:14 Abnormal lab findings: Abnormal lab results WBC 28.5 K/mcL (4.3-11.1) H 10/04/17 05:50 RBC 3.49 M/mcL (4.19-5.50) L 10/04/17 05:50 Hgb 10.7 g/dL (12.9-16.9) L 10/04/17 05:50 Hct 33.3 % (37.5-50.1) L 10/04/17 05:50 RDW 14.6 % (11.5-14.5) H 10/04/17 05:50 MPV 9.1 fL (9.4-12.4) L 10/04/17 05:50 Immature Gran % 6.5 % (0-4) H 10/04/17 05:50 Neutrophils # 24.9 K/mcL (1.6-8.9) H 10/04/17 05:50 Toxic Granulation Present (Not Present) A 10/04/17 05:50 Dohle Bodies Present (Not Present) A 10/03/17 19:14 Polychromasia 1+ (Not Present) A 10/03/17 19:14 PT 17.9 Seconds (9.4-12.1) H 10/03/17 19:14 ABG pO2 127 mmHg (85-104) H 10/04/17 07:56 ABG O2 Saturation 99 % (95-98) H 10/04/17 07:56 Sodium 131 mEq/L (136-145) L 10/04/17 05:50 Chloride 97 mEq/L (98-107) L 10/04/17 05:50 Carbon Dioxide 21 mEq/L (23-29) L 10/04/17 05:50 BUN 56 mg/dL (8-23) H 10/04/17 05:50 Creatinine 1.61 mg/dL (0.70-1.30) H 10/04/17 05:50 Est GFR ( Amer) 50 (> 60) L 10/04/17 05:50 Est GFR (Non-Af Amer) 41 (> 60) L 10/04/17 05:50 BUN/Creatinine Ratio 35 (6-26) H 10/04/17 05:50 Glucose 212 mg/dL (70-105) H 10/04/17 05:50 POC Glucose 249 mg/dL (70-99) H 10/04/17 12:05 Lactic Acid 3.1 mmol/L (0.5-2.2) H 10/04/17 05:50 Calcium 7.7 mg/dL (8.6-10.3) L 10/04/17 05:50 Venous Ioniz Calcium 1.01 mmol/L (1.15-1.35) L 10/04/17 08:38 Phosphorus 5.1 mg/dL (2.7-4.5) H 10/04/17 00:30 Iron < 10 mcg/dL (65-175) L 10/04/17 00:30 Transferrin 86 mg/dL (203-362) L 10/04/17 00:30 Ferritin 1262 ng/mL (20-250) H 10/04/17 00:30 AST 41 Units/L (13-39) H 10/03/17 19:14 Alkaline Phosphatase 271 Units/L (34-104) H 10/03/17 19:14 Troponin I 0.50 ng/mL (< 0.04) H* 10/04/17 05:50 B-Natriuretic Peptide 1124 pg/mL (Less than 100) H 10/03/17 19:14 Serum Total Protein 4.4 g/dL (6.4-8.9) L 10/03/17 19:14 Albumin 1.9 g/dL (3.5-5.7) L 10/03/17 19:14 Albumin/Globulin Ratio 0.8 (1.1-2.2) L 10/03/17 19:14 Urine Clarity Cloudy (Clear) A 10/03/17 18:11 Urine Protein 30 mg/dL (Neg-Trace) H 10/03/17 18:11 Urine Blood Large (Negative) H 10/03/17 18:11 Ur Leukocyte Esterase Large (Negative) H 10/03/17 18:11 Urine Microscopic RBC 15-30 per hpf (0-3) H 10/03/17 18:11 Urine Microscopic WBC 30-50 per hpf (0-3) H 10/03/17 18:11 Urine Bacteria Many per hpf (None-Few) H 10/03/17 18:11 Ur Culture Indicated? YES (NO) A 10/03/17 18:11 - Microbiology Findings Microbiology Findings: Microbiology, Last 48 Hours 10/04/17 10:05 Legionella Antigen - Final Urine,Clean Catch Streptococcus pneumoniae Antigen (M - Final - Clinical Findings Intake & Output: Intake & Output 10/03/17 10/04/17 10/04/17 23:59 07:59 15:59 Intake Total 697.1 / 1856.2 735 / 735 701.8 / 701.8 Output Total 800 / 800 300 / 300 Balance 697.1 / 1856.2 -65 / -65 401.8 / 401.8 Weight 123.2 kg - Attending Attestation I examined this patient and my medical decision-making was reviewed with the Resident Physician. I agree with the documented findings, disposition and treatment plan as described except to the extent set forth below. Patient seen and examined. Labs, radiology, chart personally reviewed. 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 He is not stable for spontaneous breathing trial at this time. Vent adjusted for patient comfort and ABG ordered and reviewed. Cardiovascular: Patient in shock which is most likely septic in nature, however with underlying cardiovascular disease and third spacing due to his probably poor nutrition fluid resuscitation is challenging and continue vasopressors as well as resuscitation with albumin. GI: Nutrition per dietary and GI prophylaxis per routine. We will start nutrition. Heme: DVT prophylaxis per routine ID: Continue antibiotics and plan to de-escalation. Infectious disease consultation due to his complicated medical history. Source is not clear it could be urinary system. Renal; urine out put and renal funtion reviewed. Patient hopefully will respond to albumin and be able to lower Levophed need Endorcine: blood glucose is monitored Lines: all lines checked and no evidence of infections Skin: skin care to prevent pressure ulcers per nursing routine care Patient with multiple comorbidities and palliative care was consulted. There is potential his condition could deteriorate further. I spent min of Critical Care time with this patient. It involved decision making of high complexity to assess, manipulate, and support vital organ system failure and/or to prevent further life threatening deterioration of the patient' s condition. The time involved in the performance of separately reportable procedures was not counted toward critical care time.
--- NOTE | 2017-10-04 18:04 | Electrocardiograph Report ---
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
[2017-10-04 18:09] LABS: Adenovirus Not Detected (Not Detect); Coronavirus 229E Not Detected (Not Detect); Coronavirus HKU1 Not Detected (Not Detect); Coronavirus NL63 Not Detected (Not Detect); Coronavirus OC43 Not Detected (Not Detect); Human Metapneumovirus Not Detected (Not Detect); Human Rhinovirus/Enterovirus ***DETECTED*** (Not Detect)
[2017-10-04 18:10] LABS: Bordetella Pertussis Not Detected (Not Detect); Chlamydophila pneumoniae Not Detected (Not Detect); Influenza B Not Detected (Not Detect); Mycoplasma pneumoniae Not Detected (Not Detect); Parainfluenza Virus 1 Not Detected (Not Detect); Parainfluenza Virus 2 Not Detected (Not Detect); Parainfluenza Virus 3 Not Detected (Not Detect); Parainfluenza Virus 4 Not Detected (Not Detect); Respiratory Syncytial Virus Not Detected (Not Detect)
[2017-10-05] MEDS: Ipratropium/Albuterol Neb 3 ML IH SCH ×4 (03:25→22:19)
[2017-10-05 04:08] LABS: VBG Ionized Calcium 1.06 mmol/L (1.15-1.35)
[2017-10-05 04:09] LABS: Basophils % 0.1 %; Eosinophils % 0.1 %; Hematocrit 31.5 % (37.5-50.1); Immature Granulocytes % 5.4 % (0-4); Lymphocytes # 0.5 K/mcL (0.6-4.6); Lymphocytes % 2.7 %; Mean Corpuscular HGB Conc 31.7 g/dL (31.6-35.5); Mean Corpuscular Hemoglobin 30.7 pg (28.0-33.3); Mean Corpuscular Volume 96.6 fL (83.0-100.0); Mean Platelet Volume 8.8 fL (9.4-12.4); Monocytes # 0.8 K/mcL (0.0-1.3); Monocytes % 4.3 %; Neutrophils # 16.7 K/mcL (1.6-8.9); Platelet Count 175 K/mcL (140-400); Red Blood Count 3.26 M/mcL (4.19-5.50); Red Cell Distribution Width 14.6 % (11.5-14.5); Segmented Neutrophils % 87.4 %
[2017-10-05 04:27] LABS: Calcium 7.9 mg/dL (8.6-10.3); Magnesium 1.9 mg/dL (1.6-2.6); Phosphorous 4.7 mg/dL (2.7-4.5); Potassium 4.1 mEq/L (3.5-5.1)
[2017-10-05] MEDS: Norepinephrine 4 MG in D5% in Water 250 ML IVC SCH ×2 (04:35→15:30)
[2017-10-05 04:42] LABS: Platelet Estimate Normal (Normal); Toxic Granulation Present (Not Present)
[2017-10-05] MEDS: Meropenem 1,000 MG in 0.9 % Sodium Chloride Mini Bag 100 ML IVPB SCH (05:06)
[2017-10-05] MEDS: *HR* Heparin 5,000 UNIT/ML VIAL SQ SCH ×3 (05:08→21:16)
[2017-10-05] MEDS: Insulin LISPRO 300 UNITS/3 ML VIAL SQ SCH ×5 (05:12→23:41)
[2017-10-05 06:18] LABS: ABG Base Excess 0 mEq/L (-2 to 3); ABG HCO3 25 mEq/L (21-27); ABG Oxygen Saturation 96 % (95-98); ABG PCO2 43 mmHg (35-45); ABG PH 7.38 pH Units (7.32-7.45); ABG PO2 81 mmHg (85-104); ABG TCO2 27 mEq/L (20-26); Blood Gas Modality ASSIST CONTROL; Blood Gas PEEP 5 cm H2O; Blood Gas Respiration Rate 14; Blood Gas VT 550 cc
[2017-10-05] MEDS ORDERED: 0.9 % Sodium Chloride 500 ML IVC ONE (08:12)
[2017-10-05] MEDS ORDERED: 0.9 % Sodium Chloride 500 ML ONE (08:13)
[2017-10-05] MEDS: Gabapentin 300 MG CAPSULE PO SCH ×2 (08:24→21:20)
[2017-10-05] MEDS: Furosemide 40 MG/4 ML VIAL IVP SCH ×3 (08:24→16:39)
[2017-10-05] MEDS: Pantoprazole 40 MG VIAL IVP SCH (08:24)
[2017-10-05] MEDS: Lacri-Lube 3.5 GM TUBE BOTH EYES SCH ×2 (08:25→21:17)
[2017-10-05] MEDS ORDERED: Aminoglycoside Consult 1 EACH MC ONE (08:47)
[2017-10-05 09:22] LABS: Acinetobacter baumannii by PCR Not Detected (Not Detect); Candida albicans by PCR Not Detected (Not Detect); Candida glabrata by PCR Not Detected (Not Detect); Candida krusei by PCR Not Detected (Not Detect); Candida parapsilosis by PCR Not Detected (Not Detect); Candida tropicalis by PCR Not Detected (Not Detect); Enterococcus by PCR Not Detected (Not Detect); Escherichia coli by PCR ***DETECTED*** (Not Detect); Klebsiella oxytoca by PCR Not Detected (Not Detect); Klebsiella pneumoniae by PCR Not Detected (Not Detect); Pseudomonas aeruginosa by PCR Not Detected (Not Detect); Serratia marcescens by PCR Not Detected (Not Detect); Staphylococcus aureus by PCR Not Detected (Not Detect); Streptococcus agalactiae(B)PCR Not Detected (Not Detect); Streptococcus by PCR Not Detected (Not Detect); Streptococcus pneumoniae PCR Not Detected (Not Detect); Streptococcus pyogenes (A) PCR Not Detected (Not Detect); blaKPC Carbapenem-Resist Gene Not Detected (Not Detect); mecA Methicillin-Resist Gene Not Detected (Not Detect); vanA/B Vancomycin-Resist Genes Not Detected (Not Detect)
--- NOTE | 2017-10-05 09:30 | Palliative Progress Note ---
<Jake Simon - Last Filed: 10/05/17 09:07> Date of Encounter: 10/05/17 Time of Encounter: 09:08 - Assessment and plan (1) Goals of care, counseling/discussion Current Visit: Yes Status: Acute Assessment and plan: Spoke with the patient again today, who maintains answers consistent with previous discussion regarding code status and goals of care. It is likely that the patient will be extubated today, at which time a more thorough conversation may be had directly with the patient himself. At that time, a family meeting may be appropriate for post-discharge planning and long-term health goal assessment. At this time, the patient does seem to be improving. He has remained hemodynamically stable while pressors have started to be weaned. We will continue to follow from a distance. (2) Pain Current Visit: Yes Status: Acute Assessment and plan: Patient continues to indicate that he is generally pain free. He does continue to utilize a fentanyl drip at this time, which I suspect is appropriately managing pain. (3) Acute respiratory failure with hypoxia Current Visit: Yes Status: Acute Assessment and plan: Remains intubated, however will likely be extubated today. (4) Septic shock Current Visit: Yes Status: Acute Assessment and plan: Primary team continues to wean pressors, but appears to be improved. Management per ICU team. (5) Systolic heart failure Current Visit: Yes Status: Chronic Assessment and plan: Remains fluid overloaded. Management per primary team. Qualifiers: Heart failure chronicity: acute on chronic Qualified Code(s): I50.23 - Acute on chronic systolic (congestive) heart failure - Time Spent With Patient Total time spent is greater than 50% in coordination of care (as documented) at patient's floor/unit and/or counseling patient: - Subjective Interval history: The patient remains in the ICU and intubated at this time, however according to the primary time he will likely be extubated this morning. He remains well at this time, and has seemingly no complaints. - Constitutional Vitals: Abnormal lab results WBC 19.1 K/mcL (4.3-11.1) H 10/05/17 03:50 RBC 3.26 M/mcL (4.19-5.50) L 10/05/17 03:50 Hgb 10.0 g/dL (12.9-16.9) L 10/05/17 03:50 Hct 31.5 % (37.5-50.1) L 10/05/17 03:50 RDW 14.6 % (11.5-14.5) H 10/05/17 03:50 MPV 8.8 fL (9.4-12.4) L 10/05/17 03:50 Immature Gran % 5.4 % (0-4) H 10/05/17 03:50 Neutrophils # 16.7 K/mcL (1.6-8.9) H 10/05/17 03:50 Lymphocytes # 0.5 K/mcL (0.6-4.6) L 10/05/17 03:50 Toxic Granulation Present (Not Present) A 10/05/17 03:50 Dohle Bodies Present (Not Present) A 10/03/17 19:14 Polychromasia 1+ (Not Present) A 10/03/17 19:14 ESR 93 mm/hr (0-10) H 10/04/17 14:44 PT 17.9 Seconds (9.4-12.1) H 10/03/17 19:14 ABG pO2 81 mmHg (85-104) L 10/05/17 06:15 ABG Total CO2 27 mEq/L (20-26) H 10/05/17 06:15 Sodium 134 mEq/L (136-145) L 10/05/17 03:50 BUN 63 mg/dL (8-23) H 10/05/17 03:50 Creatinine 1.53 mg/dL (0.70-1.30) H 10/05/17 03:50 Est GFR ( Amer) 53 (> 60) L 10/05/17 03:50 Est GFR (Non-Af Amer) 43 (> 60) L 10/05/17 03:50 BUN/Creatinine Ratio 41 (6-26) H 10/05/17 03:50 Glucose 211 mg/dL (70-105) H 10/05/17 03:50 POC Glucose 221 mg/dL (70-99) H 10/05/17 05:11 Calculated Osmolality 302 (280-300) H 10/05/17 03:50 Calcium 7.9 mg/dL (8.6-10.3) L 10/05/17 03:50 Venous Ioniz Calcium 1.06 mmol/L (1.15-1.35) L 10/05/17 04:06 Phosphorus 4.7 mg/dL (2.7-4.5) H 10/05/17 03:50 Iron < 10 mcg/dL (65-175) L 10/04/17 00:30 Transferrin 86 mg/dL (203-362) L 10/04/17 00:30 Ferritin 1262 ng/mL (20-250) H 10/04/17 00:30 AST 41 Units/L (13-39) H 10/03/17 19:14 Alkaline Phosphatase 271 Units/L (34-104) H 10/03/17 19:14 Troponin I 0.50 ng/mL (< 0.04) H* 10/04/17 05:50 C-Reactive Protein 249 mg/L (Less than 10) H 10/04/17 14:44 B-Natriuretic Peptide 1124 pg/mL (Less than 100) H 10/03/17 19:14 Serum Total Protein 4.4 g/dL (6.4-8.9) L 10/03/17 19:14 Albumin 1.9 g/dL (3.5-5.7) L 10/03/17 19:14 Albumin/Globulin Ratio 0.8 (1.1-2.2) L 10/03/17 19:14 Urine Clarity Cloudy (Clear) A 10/03/17 18:11 Urine Protein 30 mg/dL (Neg-Trace) H 10/03/17 18:11 Urine Blood Large (Negative) H 10/03/17 18:11 Ur Leukocyte Esterase Large (Negative) H 10/03/17 18:11 Urine Microscopic RBC 15-30 per hpf (0-3) H 10/03/17 18:11 Urine Microscopic WBC 30-50 per hpf (0-3) H 10/03/17 18:11 Urine Bacteria Many per hpf (None-Few) H 10/03/17 18:11 Ur Culture Indicated? YES (NO) A 10/03/17 18:11 Entero/Rhino (PCR) DETECTED (Not Detect) A 10/04/17 15:40 Exam: Gen: Vitals noted. No acute distress. ET tube in place HEENT: Normocephalic, atraumatic. Mucous membranes appear moist. Cardiac: RRR, no murmur, +S1/S2 Pulmonary: CTA bilaterally, no wheezes, rales or rhonchi, equal chest expansion however seemingly diminished b/l Abdomen: soft, nontender, BS noted, no guarding. Suspect umbilical hernia which is reducible MSK: ROM intact, no joint swelling noted Extremities: 3+ b/l LE edema but mildly decreased from prior Neuro: Alert and responds appropriately to questions and commands, moves all extremities, no focal deficits Psych: Appropriate mood and behavior Palliative Quality Palliative Quality: Screen for Code Status: Yes, Screen for Goals of Care: Yes, Screen for Pain: Yes, If Pain Regimen Started, Initiate Bowel Regimen: Yes, Screen for Nausea/Vomitting: Yes Code Status: 10/03/17 23:11 Resuscitation Status: Active [RES] Routine Comment: Resuscitation Status: Full Code - Labs CBC & Chem 7: 10/05/17 03:50 10/05/17 03:50 Labs: Laboratory Results - last 24 hr 10/04/17 10/04/17 10/04/17 07:30 12:05 14:44 WBC RBC Hgb Hct MCV MCH MCHC RDW Plt Count MPV Immature Gran % Seg Neutrophils % Lymphocytes % Monocytes % Eosinophils % Basophils % Neutrophils # Lymphocytes # Monocytes # Eosinophils # Basophils # Toxic Granulation Platelet Estimate ESR 93 H Sample Site ABG pH ABG pCO2 ABG pO2 ABG HCO3 ABG Total CO2 ABG O2 Saturation ABG Base Excess Adam Test Respiration Rate O2 Delivery Device Blood Gas Modality Inspired O2 Tidal Volume PEEP Sodium Potassium Chloride Carbon Dioxide BUN Creatinine Est GFR ( Amer) Est GFR (Non-Af Amer) BUN/Creatinine Ratio Glucose POC Glucose 249 H Calculated Osmolality Lactic Acid Calcium Venous Ioniz Calcium Phosphorus Magnesium 2.0 C-Reactive Protein Chlamy pneumoniae PCR Adenovirus (PCR) B. pertussis DNA (PCR) B.parapertussis DNA PCR Coronavirus OC43 (PCR) Coronavirus HKU1 (PCR) Coronavirus 229E (PCR) Coronavirus NL63 (PCR) Human Metapneumovir PCR Influenza A (H1) PCR Influenza A (H3) PCR Influenza Type B (PCR) M.pneumoniae DNA (PCR) Parainfluenza 1 (PCR) Parainfluenza 2 (PCR) Parainfluenza 3 (PCR) Parainfluenza 4 (PCR) RSV (PCR) Entero/Rhino (PCR) 10/04/17 10/04/17 10/04/17 14:44 15:40 18:43 WBC RBC Hgb Hct MCV MCH MCHC RDW Plt Count MPV Immature Gran % Seg Neutrophils % Lymphocytes % Monocytes % Eosinophils % Basophils % Neutrophils # Lymphocytes # Monocytes # Eosinophils # Basophils # Toxic Granulation Platelet Estimate ESR Sample Site ABG pH ABG pCO2 ABG pO2 ABG HCO3 ABG Total CO2 ABG O2 Saturation ABG Base Excess Adam Test Respiration Rate O2 Delivery Device Blood Gas Modality Inspired O2 Tidal Volume PEEP Sodium Potassium Chloride Carbon Dioxide BUN Creatinine Est GFR ( Amer) Est GFR (Non-Af Amer) BUN/Creatinine Ratio Glucose POC Glucose 210 H Calculated Osmolality Lactic Acid Calcium Venous Ioniz Calcium Phosphorus Magnesium C-Reactive Protein 249 H Chlamy pneumoniae PCR Not Detected Adenovirus (PCR) Not Detected B. pertussis DNA (PCR) Not Detected B.parapertussis DNA PCR Not Detected Coronavirus OC43 (PCR) Not Detected Coronavirus HKU1 (PCR) Not Detected Coronavirus 229E (PCR) Not Detected Coronavirus NL63 (PCR) Not Detected Human Metapneumovir PCR Not Detected Influenza A (H1) PCR Not Detected Influenza A (H3) PCR Not Detected Influenza Type B (PCR) Not Detected M.pneumoniae DNA (PCR) Not Detected Parainfluenza 1 (PCR) Not Detected Parainfluenza 2 (PCR) Not Detected Parainfluenza 3 (PCR) Not Detected Parainfluenza 4 (PCR) Not Detected RSV (PCR) Not Detected Entero/Rhino (PCR) DETECTED A 10/04/17 10/04/17 10/04/17 19:58 23:36 23:37 WBC RBC Hgb Hct MCV MCH MCHC RDW Plt Count MPV Immature Gran % Seg Neutrophils % Lymphocytes % Monocytes % Eosinophils % Basophils % Neutrophils # Lymphocytes # Monocytes # Eosinophils # Basophils # Toxic Granulation Platelet Estimate ESR Sample Site ABG pH ABG pCO2 ABG pO2 ABG HCO3 ABG Total CO2 ABG O2 Saturation ABG Base Excess Adam Test Respiration Rate O2 Delivery Device Blood Gas Modality Inspired O2 Tidal Volume PEEP Sodium Potassium Chloride Carbon Dioxide BUN Creatinine Est GFR ( Amer) Est GFR (Non-Af Amer) BUN/Creatinine Ratio Glucose POC Glucose 208 H 268 H 212 H Calculated Osmolality Lactic Acid Calcium Venous Ioniz Calcium Phosphorus Magnesium C-Reactive Protein Chlamy pneumoniae PCR Adenovirus (PCR) B. pertussis DNA (PCR) B.parapertussis DNA PCR Coronavirus OC43 (PCR) Coronavirus HKU1 (PCR) Coronavirus 229E (PCR) Coronavirus NL63 (PCR) Human Metapneumovir PCR Influenza A (H1) PCR Influenza A (H3) PCR Influenza Type B (PCR) M.pneumoniae DNA (PCR) Parainfluenza 1 (PCR) Parainfluenza 2 (PCR) Parainfluenza 3 (PCR) Parainfluenza 4 (PCR) RSV (PCR) Entero/Rhino (PCR) 10/05/17 10/05/17 10/05/17 03:50 03:50 03:50 WBC 19.1 H RBC 3.26 L Hgb 10.0 L Hct 31.5 L MCV 96.6 MCH 30.7 MCHC 31.7 RDW 14.6 H Plt Count 175 MPV 8.8 L Immature Gran % 5.4 H Seg Neutrophils % 87.4 Lymphocytes % 2.7 Monocytes % 4.3 Eosinophils % 0.1 Basophils % 0.1 Neutrophils # 16.7 H Lymphocytes # 0.5 L Monocytes # 0.8 Eosinophils # 0.0 Basophils # 0.0 Toxic Granulation Present A Platelet Estimate Normal ESR Sample Site ABG pH ABG pCO2 ABG pO2 ABG HCO3 ABG Total CO2 ABG O2 Saturation ABG Base Excess Adam Test Respiration Rate O2 Delivery Device Blood Gas Modality Inspired O2 Tidal Volume PEEP Sodium 134 L Potassium 4.1 Chloride 98 Carbon Dioxide 24 BUN 63 H Creatinine 1.53 H Est GFR ( Amer) 53 L Est GFR (Non-Af Amer) 43 L BUN/Creatinine Ratio 41 H Glucose 211 H POC Glucose Calculated Osmolality 302 H Lactic Acid 1.8 Calcium 7.9 L Venous Ioniz Calcium Phosphorus 4.7 H Magnesium 1.9 C-Reactive Protein Chlamy pneumoniae PCR Adenovirus (PCR) B. pertussis DNA (PCR) B.parapertussis DNA PCR Coronavirus OC43 (PCR) Coronavirus HKU1 (PCR) Coronavirus 229E (PCR) Coronavirus NL63 (PCR) Human Metapneumovir PCR Influenza A (H1) PCR Influenza A (H3) PCR Influenza Type B (PCR) M.pneumoniae DNA (PCR) Parainfluenza 1 (PCR) Parainfluenza 2 (PCR) Parainfluenza 3 (PCR) Parainfluenza 4 (PCR) RSV (PCR) Entero/Rhino (PCR) 10/05/17 10/05/17 10/05/17 04:06 05:11 06:15 WBC RBC Hgb Hct MCV MCH MCHC RDW Plt Count MPV Immature Gran % Seg Neutrophils % Lymphocytes % Monocytes % Eosinophils % Basophils % Neutrophils # Lymphocytes # Monocytes # Eosinophils # Basophils # Toxic Granulation Platelet Estimate ESR Sample Site R Radial ABG pH 7.38 ABG pCO2 43 ABG pO2 81 L ABG HCO3 25 ABG Total CO2 27 H ABG O2 Saturation 96 ABG Base Excess 0 Adam Test Positive Respiration Rate 14 O2 Delivery Device Adult Vent Blood Gas Modality ASSIST CONTROL Inspired O2 30.0 Tidal Volume 550 PEEP 5 Sodium Potassium Chloride Carbon Dioxide BUN Creatinine Est GFR ( Amer) Est GFR (Non-Af Amer) BUN/Creatinine Ratio Glucose POC Glucose 221 H Calculated Osmolality Lactic Acid Calcium Venous Ioniz Calcium 1.06 L Phosphorus Magnesium C-Reactive Protein Chlamy pneumoniae PCR Adenovirus (PCR) B. pertussis DNA (PCR) B.parapertussis DNA PCR Coronavirus OC43 (PCR) Coronavirus HKU1 (PCR) Coronavirus 229E (PCR) Coronavirus NL63 (PCR) Human Metapneumovir PCR Influenza A (H1) PCR Influenza A (H3) PCR Influenza Type B (PCR) M.pneumoniae DNA (PCR) Parainfluenza 1 (PCR) Parainfluenza 2 (PCR) Parainfluenza 3 (PCR) Parainfluenza 4 (PCR) RSV (PCR) Entero/Rhino (PCR) - Impressions Impressions KUB X-Ray 10/04/17 10:41 IMPRESSION: Tip of the orogastric tube is within the stomach. D/ /04/2017 11:10:23 Ole Ramos MD / [facility] Interpreting Provider: lOe Ramos MD Abdomen/Pelvis CT 10/04/17 17:00 IMPRESSION: 1. Cardiomegaly with trace bilateral pleural effusions and diffuse anasarca, presumed related to congestive heart failure. Mild interstitial pulmonary edema may be present. 2. Extensive opacities are present in the lower lobes, which could be related to pneumonia and/or atelectasis (examination was performed in the expiratory phase). 3. Bethea catheter tip and balloon are present within the prostate. Air is present in the bladder lumen. Moderately enlarged prostate. 4. Gallstones with mild nonspecific distention of the gallbladder. No findings specific for acute cholecystitis are seen. 5. A 2.1 cm nodule is suspected in the right lobe of the thyroid. Further evaluation with thyroid ultrasound on a nonemergent basis is recommended as clinically indicated. D/ /04/2017 18:18:01 Kraig Mcneil MD / [facility] Interpreting Provider: Kraig Mcneil MD Chest CT 10/04/17 17:00 IMPRESSION: 1. Cardiomegaly with trace bilateral pleural effusions and diffuse anasarca, presumed related to congestive heart failure. Mild interstitial pulmonary edema may be present. 2. Extensive opacities are present in the lower lobes, which could be related to pneumonia and/or atelectasis (examination was performed in the expiratory phase). 3. Bethea catheter tip and balloon are present within the prostate. Air is present in the bladder lumen. Moderately enlarged prostate. 4. Gallstones with mild nonspecific distention of the gallbladder. No findings specific for acute cholecystitis are seen. 5. A 2.1 cm nodule is suspected in the right lobe of the thyroid. Further evaluation with thyroid ultrasound on a nonemergent basis is recommended as clinically indicated. D/ /04/2017 18:18:01 Kraig Mcneil MD / [facility] Interpreting Provider: Kraig Mcneil MD - ABG Interpretation ABG results: ABG ABG pH 7.38 pH Units (7.32-7.45) 10/05/17 06:15 ABG pCO2 43 mmHg (35-45) 10/05/17 06:15 ABG pO2 81 mmHg (85-104) L 10/05/17 06:15 ABG O2 Saturation 96 % (95-98) 10/05/17 06:15 PT/INR, D-dimer PT 17.9 Seconds (9.4-12.1) H 10/03/17 19:14 Consult Discharge Plan - Plan Referrals: Radha Jones, [facility] [employer] [Primary Care Provider] - <Antonio Rios - Last Filed: 10/05/17 11:33> Date of Encounter: 10/05/17 - Time Spent With Patient Total time spent is greater than 50% in coordination of care (as documented) at patient's floor/unit and/or counseling patient: - Constitutional Vitals: Abnormal lab results WBC 19.1 K/mcL (4.3-11.1) H 10/05/17 03:50 RBC 3.26 M/mcL (4.19-5.50) L 10/05/17 03:50 Hgb 10.0 g/dL (12.9-16.9) L 10/05/17 03:50 Hct 31.5 % (37.5-50.1) L 10/05/17 03:50 RDW 14.6 % (11.5-14.5) H 10/05/17 03:50 MPV 8.8 fL (9.4-12.4) L 10/05/17 03:50 Immature Gran % 5.4 % (0-4) H 10/05/17 03:50 Neutrophils # 16.7 K/mcL (1.6-8.9) H 10/05/17 03:50 Lymphocytes # 0.5 K/mcL (0.6-4.6) L 10/05/17 03:50 Toxic Granulation Present (Not Present) A 10/05/17 03:50 Dohle Bodies Present (Not Present) A 10/03/17 19:14 Polychromasia 1+ (Not Present) A 10/03/17 19:14 ESR 93 mm/hr (0-10) H 10/04/17 14:44 PT 17.9 Seconds (9.4-12.1) H 10/03/17 19:14 ABG pO2 81 mmHg (85-104) L 10/05/17 06:15 ABG Total CO2 27 mEq/L (20-26) H 10/05/17 06:15 Sodium 134 mEq/L (136-145) L 10/05/17 03:50 BUN 63 mg/dL (8-23) H 10/05/17 03:50 Creatinine 1.53 mg/dL (0.70-1.30) H 10/05/17 03:50 Est GFR ( Amer) 53 (> 60) L 10/05/17 03:50 Est GFR (Non-Af Amer) 43 (> 60) L 10/05/17 03:50 BUN/Creatinine Ratio 41 (6-26) H 10/05/17 03:50 Glucose 211 mg/dL (70-105) H 10/05/17 03:50 POC Glucose 221 mg/dL (70-99) H 10/05/17 05:11 Calculated Osmolality 302 (280-300) H 10/05/17 03:50 Calcium 7.9 mg/dL (8.6-10.3) L 10/05/17 03:50 Venous Ioniz Calcium 1.06 mmol/L (1.15-1.35) L 10/05/17 04:06 Phosphorus 4.7 mg/dL (2.7-4.5) H 10/05/17 03:50 Iron < 10 mcg/dL (65-175) L 10/04/17 00:30 Transferrin 86 mg/dL (203-362) L 10/04/17 00:30 Ferritin 1262 ng/mL (20-250) H 10/04/17 00:30 AST 41 Units/L (13-39) H 10/03/17 19:14 Alkaline Phosphatase 271 Units/L (34-104) H 10/03/17 19:14 Troponin I 0.50 ng/mL (< 0.04) H* 10/04/17 05:50 C-Reactive Protein 249 mg/L (Less than 10) H 10/04/17 14:44 B-Natriuretic Peptide 1124 pg/mL (Less than 100) H 10/03/17 19:14 Serum Total Protein 4.4 g/dL (6.4-8.9) L 10/03/17 19:14 Albumin 1.9 g/dL (3.5-5.7) L 10/03/17 19:14 Albumin/Globulin Ratio 0.8 (1.1-2.2) L 10/03/17 19:14 Urine Clarity Cloudy (Clear) A 10/03/17 18:11 Urine Protein 30 mg/dL (Neg-Trace) H 10/03/17 18:11 Urine Blood Large (Negative) H 10/03/17 18:11 Ur Leukocyte Esterase Large (Negative) H 10/03/17 18:11 Urine Microscopic RBC 15-30 per hpf (0-3) H 10/03/17 18:11 Urine Microscopic WBC 30-50 per hpf (0-3) H 10/03/17 18:11 Urine Bacteria Many per hpf (None-Few) H 10/03/17 18:11 Ur Culture Indicated? YES (NO) A 10/03/17 18:11 Enterobacteriac sp PCR DETECTED (Not Detect) A 10/03/17 19:14 E. coli (PCR) DETECTED (Not Detect) A 10/03/17 19:14 Entero/Rhino (PCR) DETECTED (Not Detect) A 10/04/17 15:40 - Attending Attestation I examined this patient and my medical decision-making was reviewed with the Resident Physician. I agree with the documented findings, disposition and treatment plan as described except to the extent set forth below. Palliative Quality Code Status: 10/03/17 23:11 Resuscitation Status: Active [RES] Routine Comment: Resuscitation Status: Full Code - Labs CBC & Chem 7: 10/05/17 03:50 10/05/17 03:50 Labs: Laboratory Results - last 24 hr 10/04/17 10/04/17 10/04/17 07:30 12:05 14:44 WBC RBC Hgb Hct MCV MCH MCHC RDW Plt Count MPV Immature Gran % Seg Neutrophils % Lymphocytes % Monocytes % Eosinophils % Basophils % Neutrophils # Lymphocytes # Monocytes # Eosinophils # Basophils # Toxic Granulation Platelet Estimate ESR 93 H Sample Site ABG pH ABG pCO2 ABG pO2 ABG HCO3 ABG Total CO2 ABG O2 Saturation ABG Base Excess Adam Test Respiration Rate O2 Delivery Device Blood Gas Modality Inspired O2 Tidal Volume PEEP Sodium Potassium Chloride Carbon Dioxide BUN Creatinine Est GFR ( Amer) Est GFR (Non-Af Amer) BUN/Creatinine Ratio Glucose POC Glucose 249 H Calculated Osmolality Lactic Acid Calcium Venous Ioniz Calcium Phosphorus Magnesium 2.0 C-Reactive Protein Chlamy pneumoniae PCR Adenovirus (PCR) B. pertussis DNA (PCR) B.parapertussis DNA PCR Coronavirus OC43 (PCR) Coronavirus HKU1 (PCR) Coronavirus 229E (PCR) Coronavirus NL63 (PCR) Human Metapneumovir PCR Influenza A (H1) PCR Influenza A (H3) PCR Influenza Type B (PCR) M.pneumoniae DNA (PCR) Parainfluenza 1 (PCR) Parainfluenza 2 (PCR) Parainfluenza 3 (PCR) Parainfluenza 4 (PCR) RSV (PCR) Entero/Rhino (PCR) 10/04/17 10/04/17 10/04/17 14:44 15:40 18:43 WBC RBC Hgb Hct MCV MCH MCHC RDW Plt Count MPV Immature Gran % Seg Neutrophils % Lymphocytes % Monocytes % Eosinophils % Basophils % Neutrophils # Lymphocytes # Monocytes # Eosinophils # Basophils # Toxic Granulation Platelet Estimate ESR Sample Site ABG pH ABG pCO2 ABG pO2 ABG HCO3 ABG Total CO2 ABG O2 Saturation ABG Base Excess Adam Test Respiration Rate O2 Delivery Device Blood Gas Modality Inspired O2 Tidal Volume PEEP Sodium Potassium Chloride Carbon Dioxide BUN Creatinine Est GFR ( Amer) Est GFR (Non-Af Amer) BUN/Creatinine Ratio Glucose POC Glucose 210 H Calculated Osmolality Lactic Acid Calcium Venous Ioniz Calcium Phosphorus Magnesium C-Reactive Protein 249 H Chlamy pneumoniae PCR Not Detected Adenovirus (PCR) Not Detected B. pertussis DNA (PCR) Not Detected B.parapertussis DNA PCR Not Detected Coronavirus OC43 (PCR) Not Detected Coronavirus HKU1 (PCR) Not Detected Coronavirus 229E (PCR) Not Detected Coronavirus NL63 (PCR) Not Detected Human Metapneumovir PCR Not Detected Influenza A (H1) PCR Not Detected Influenza A (H3) PCR Not Detected Influenza Type B (PCR) Not Detected M.pneumoniae DNA (PCR) Not Detected Parainfluenza 1 (PCR) Not Detected Parainfluenza 2 (PCR) Not Detected Parainfluenza 3 (PCR) Not Detected Parainfluenza 4 (PCR) Not Detected RSV (PCR) Not Detected Entero/Rhino (PCR) DETECTED A 10/04/17 10/04/17 10/04/17 19:58 23:36 23:37 WBC RBC Hgb Hct MCV MCH MCHC RDW Plt Count MPV Immature Gran % Seg Neutrophils % Lymphocytes % Monocytes % Eosinophils % Basophils % Neutrophils # Lymphocytes # Monocytes # Eosinophils # Basophils # Toxic Granulation Platelet Estimate ESR Sample Site ABG pH ABG pCO2 ABG pO2 ABG HCO3 ABG Total CO2 ABG O2 Saturation ABG Base Excess Adam Test Respiration Rate O2 Delivery Device Blood Gas Modality Inspired O2 Tidal Volume PEEP Sodium Potassium Chloride Carbon Dioxide BUN Creatinine Est GFR ( Amer) Est GFR (Non-Af Amer) BUN/Creatinine Ratio Glucose POC Glucose 208 H 268 H 212 H Calculated Osmolality Lactic Acid Calcium Venous Ioniz Calcium Phosphorus Magnesium C-Reactive Protein Chlamy pneumoniae PCR Adenovirus (PCR) B. pertussis DNA (PCR) B.parapertussis DNA PCR Coronavirus OC43 (PCR) Coronavirus HKU1 (PCR) Coronavirus 229E (PCR) Coronavirus NL63 (PCR) Human Metapneumovir PCR Influenza A (H1) PCR Influenza A (H3) PCR Influenza Type B (PCR) M.pneumoniae DNA (PCR) Parainfluenza 1 (PCR) Parainfluenza 2 (PCR) Parainfluenza 3 (PCR) Parainfluenza 4 (PCR) RSV (PCR) Entero/Rhino (PCR) 10/05/17 10/05/17 10/05/17 03:50 03:50 03:50 WBC 19.1 H RBC 3.26 L Hgb 10.0 L Hct 31.5 L MCV 96.6 MCH 30.7 MCHC 31.7 RDW 14.6 H Plt Count 175 MPV 8.8 L Immature Gran % 5.4 H Seg Neutrophils % 87.4 Lymphocytes % 2.7 Monocytes % 4.3 Eosinophils % 0.1 Basophils % 0.1 Neutrophils # 16.7 H Lymphocytes # 0.5 L Monocytes # 0.8 Eosinophils # 0.0 Basophils # 0.0 Toxic Granulation Present A Platelet Estimate Normal ESR Sample Site ABG pH ABG pCO2 ABG pO2 ABG HCO3 ABG Total CO2 ABG O2 Saturation ABG Base Excess Adam Test Respiration Rate O2 Delivery Device Blood Gas Modality Inspired O2 Tidal Volume PEEP Sodium 134 L Potassium 4.1 Chloride 98 Carbon Dioxide 24 BUN 63 H Creatinine 1.53 H Est GFR ( Amer) 53 L Est GFR (Non-Af Amer) 43 L BUN/Creatinine Ratio 41 H Glucose 211 H POC Glucose Calculated Osmolality 302 H Lactic Acid 1.8 Calcium 7.9 L Venous Ioniz Calcium Phosphorus 4.7 H Magnesium 1.9 C-Reactive Protein Chlamy pneumoniae PCR Adenovirus (PCR) B. pertussis DNA (PCR) B.parapertussis DNA PCR Coronavirus OC43 (PCR) Coronavirus HKU1 (PCR) Coronavirus 229E (PCR) Coronavirus NL63 (PCR) Human Metapneumovir PCR Influenza A (H1) PCR Influenza A (H3) PCR Influenza Type B (PCR) M.pneumoniae DNA (PCR) Parainfluenza 1 (PCR) Parainfluenza 2 (PCR) Parainfluenza 3 (PCR) Parainfluenza 4 (PCR) RSV (PCR) Entero/Rhino (PCR) 10/05/17 10/05/17 10/05/17 04:06 05:11 06:15 WBC RBC Hgb Hct MCV MCH MCHC RDW Plt Count MPV Immature Gran % Seg Neutrophils % Lymphocytes % Monocytes % Eosinophils % Basophils % Neutrophils # Lymphocytes # Monocytes # Eosinophils # Basophils # Toxic Granulation Platelet Estimate ESR Sample Site R Radial ABG pH 7.38 ABG pCO2 43 ABG pO2 81 L ABG HCO3 25 ABG Total CO2 27 H ABG O2 Saturation 96 ABG Base Excess 0 Adam Test Positive Respiration Rate 14 O2 Delivery Device Adult Vent Blood Gas Modality ASSIST CONTROL Inspired O2 30.0 Tidal Volume 550 PEEP 5 Sodium Potassium Chloride Carbon Dioxide BUN Creatinine Est GFR ( Amer) Est GFR (Non-Af Amer) BUN/Creatinine Ratio Glucose POC Glucose 221 H Calculated Osmolality Lactic Acid Calcium Venous Ioniz Calcium 1.06 L Phosphorus Magnesium C-Reactive Protein Chlamy pneumoniae PCR Adenovirus (PCR) B. pertussis DNA (PCR) B.parapertussis DNA PCR Coronavirus OC43 (PCR) Coronavirus HKU1 (PCR) Coronavirus 229E (PCR) Coronavirus NL63 (PCR) Human Metapneumovir PCR Influenza A (H1) PCR Influenza A (H3) PCR Influenza Type B (PCR) M.pneumoniae DNA (PCR) Parainfluenza 1 (PCR) Parainfluenza 2 (PCR) Parainfluenza 3 (PCR) Parainfluenza 4 (PCR) RSV (PCR) Entero/Rhino (PCR) - Impressions Impressions Echocardiogram Limited Views 10/03/17 23:17 Impressions: LVEF 50-55%. Mild concentric left ventricular hypertrophy. Normal LV chamber size. Atypical septal motion consistent with paced rhythm. Normal right ventricular structure and function. Left Ventricular Wall Motion: Rest Echo Findings All wall segments showed normal motion. Findings: Study Quality * Technically adequate exam. ECG Findings * Tachycardia noted. Paced rhythm. Left Ventricle * LVEF 50-55%. * Normal LV chamber size. * Mild concentric left ventricular hypertrophy. * Atypical septal motion consistent with paced rhythm. Right Ventricle * Normal right ventricular structure and function. Left Atrium * Severely dilated left atrium. Right Atrium * Moderately dilated right atrium. Pericardium * The pericardium appears normal. Device lead * A device lead was visualized in the right atrium and right ventricle. KUB X-Ray 10/04/17 10:41 IMPRESSION: Tip of the orogastric tube is within the stomach. D/ / 10/04/2017 11:10:23 Ole Ramos MD / [email or web address] Interpreting Provider: Ole Ramos MD Abdomen/Pelvis CT 10/04/17 17:00 IMPRESSION: 1. Cardiomegaly with trace bilateral pleural effusions and diffuse anasarca, presumed related to congestive heart failure. Mild interstitial pulmonary edema may be present. 2. Extensive opacities are present in the lower lobes, which could be related to pneumonia and/or atelectasis (examination was performed in the expiratory phase). 3. Bethea catheter tip and balloon are present within the prostate. Air is present in the bladder lumen. Moderately enlarged prostate. 4. Gallstones with mild nonspecific distention of the gallbladder. No findings specific for acute cholecystitis are seen. 5. A 2.1 cm nodule is suspected in the right lobe of the thyroid. Further evaluation with thyroid ultrasound on a nonemergent basis is recommended as clinically indicated. D/ / 10/04/2017 18:18:01 Kraig Mcneil MD / [facility] [place] Interpreting Provider: Kraig Mcneil MD Chest CT 10/04/17 17:00 IMPRESSION: 1. Cardiomegaly with trace bilateral pleural effusions and diffuse anasarca, presumed related to congestive heart failure. Mild interstitial pulmonary edema may be present. 2. Extensive opacities are present in the lower lobes, which could be related to pneumonia and/or atelectasis (examination was performed in the expiratory phase). 3. Bethea catheter tip and balloon are present within the prostate. Air is present in the bladder lumen. Moderately enlarged prostate. 4. Gallstones with mild nonspecific distention of the gallbladder. No findings specific for acute cholecystitis are seen. 5. A 2.1 cm nodule is suspected in the right lobe of the thyroid. Further evaluation with thyroid ultrasound on a nonemergent basis is recommended as clinically indicated. D/ 10/04/2017 18:18:01 Kraig Mcneil MD / [facility] Interpreting Provider: Kraig Mcneil MD - ABG Interpretation ABG results: ABG ABG pH 7.38 pH Units (7.32-7.45) 10/05/17 06:15 ABG pCO2 43 mmHg (35-45) 10/05/17 06:15 ABG pO2 81 mmHg (85-104) L 10/05/17 06:15 ABG O2 Saturation 96 % (95-98) 10/05/17 06:15 PT/INR, D-dimer PT 17.9 Seconds (9.4-12.1) H 10/03/17 19:14
--- NOTE | 2017-10-05 09:39 | Infectious Disease Progress No ---
Date of Encounter: 10/05/17 Time of Encounter: 08:50 - Assessment and Plan (1) Septic shock Current Visit: Yes Status: Acute Patient had 3 of 4 SIRS criteria on presentation with leukocytosis, tachypnea, and tachycardia Lactic acid was 3.7 upon presentation, trending down to 1.8 this morning Source and causative organism E. Coli CRP 249, ESR 93 RIP positive for enterovirus/rhinovirus Still requiring pressor support at this time 1 blood culture collected at ED preliminarily growing E. 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 Coli He did have previous urine cultures positive for E. Coli ESBL on 09/01/17 and Patient has been seen by urology as outpatient but has missed multiple recent visits Currently being treated with Vancomycin (day 3) and Meropenem (day 2) Will switch Meropenem to Ertapenem Plan to discuss with pulmonology to see if patient requires Vancomycin for HCAP In the meantime will obtain MRSA screen He did receive 2 doses of Zosyn since admission Await final urine and blood culture results Obtain repeat blood cultures in 48 hours Duration will be based on clinical picture Continue to monitor renal function and avoid nephrotoxins Dose antibiotics based on renal function (3) Pressure ulcer of coccygeal region Current Visit: No Status: Acute Unstageable sacral ulcer currently being follow by wound care Unable to rule out if they are causing osteomyelitis Continue with current antibiotic regimen as above Qualifiers: Pressure ulcer stage: unstageable Qualified Code(s): L89.150 - Pressure ulcer of sacral region, unstageable (4) Pressure ulcer of ankle, right, unstageable Current Visit: No Status: Acute Plan as above (5) Leukocytosis Current Visit: Yes Status: Acute White count initially 14 upon arrival but increased to 33 This morning down to 19 He did receive 100 mg of Solu-cortef in the ED Currently on antibiotic regimen as above Continue to trend CBC Qualifiers: Leukocytosis type: unspecified Qualified Code(s): D72.829 - Elevated white blood cell count, unspecified (6) Diabetes mellitus Current Visit: No Status: Chronic Patient's accucheck upon arrival to ED was 130 Doubt hypoglycemia was cause of his altered mental status SSI and accuchecks per primary team Qualifiers: Diabetes mellitus type: type 2 Diabetes mellitus correction insulin use: without correction use Diabetes mellitus complication status: with kidney complications Diabetes mellitus complication detail: with chronic kidney disease Chronic kidney disease stage: stage 3 (moderate) Qualified Code(s): E11.22 - Type 2 diabetes mellitus with diabetic chronic kidney disease; N18.3 - Chronic kidney disease, stage 3 (moderate) (7) CKD (chronic kidney disease) Current Visit: No Status: Chronic Qualifiers: Chronic kidney disease stage: stage 3 (moderate) Qualified Code(s): N18.3 - Chronic kidney disease, stage 3 (moderate) (8) Hypertension Current Visit: No Status: Chronic Qualifiers: Hypertension type: unspecified Qualified Code(s): I10 - Essential (primary ) hypertension (9) History of DVT (deep vein thrombosis) Current Visit: Yes Status: Acute (10) Systolic heart failure Current Visit: Yes Status: Chronic Qualifiers: Heart failure chronicity: acute on chronic Qualified Code(s): I50.23 - Acute on chronic systolic (congestive) heart failure - Subjective Interval history: Pt seen and examined. He is currently intubated and sedated and no family at bedside. He is able to follow commands and shakes his head denying he is in any pain or difficulty breathing. Infect Dis PN-Objective Data - Labs CBC & Chem 7: 10/06/17 04:50 10/06/17 04:50 Labs: Laboratory Results - last 24 hr 10/04/17 10/04/17 10/04/17 07:30 12:05 14:44 WBC RBC Hgb Hct MCV MCH MCHC RDW Plt Count MPV Immature Gran % Seg Neutrophils % Lymphocytes % Monocytes % Eosinophils % Basophils % Neutrophils # Lymphocytes # Monocytes # Eosinophils # Basophils # Toxic Granulation Platelet Estimate ESR 93 H Sample Site ABG pH ABG pCO2 ABG pO2 ABG HCO3 ABG Total CO2 ABG O2 Saturation ABG Base Excess Adam Test Respiration Rate O2 Delivery Device Blood Gas Modality Inspired O2 Tidal Volume PEEP Sodium Potassium Chloride Carbon Dioxide BUN Creatinine Est GFR ( Amer) Est GFR (Non-Af Amer) BUN/Creatinine Ratio Glucose POC Glucose 249 H Calculated Osmolality Lactic Acid Calcium Venous Ioniz Calcium Phosphorus Magnesium 2.0 C-Reactive Protein Chlamy pneumoniae PCR Adenovirus (PCR) B. pertussis DNA (PCR) B.parapertussis DNA PCR Coronavirus OC43 (PCR) Coronavirus HKU1 (PCR) Coronavirus 229E (PCR) Coronavirus NL63 (PCR) Human Metapneumovir PCR Influenza A (H1) PCR Influenza A (H3) PCR Influenza Type B (PCR) M.pneumoniae DNA (PCR) Parainfluenza 1 (PCR) Parainfluenza 2 (PCR) Parainfluenza 3 (PCR) Parainfluenza 4 (PCR) RSV (PCR) Entero/Rhino (PCR) 10/04/17 10/04/17 10/04/17 14:44 15:40 18:43 WBC RBC Hgb Hct MCV MCH MCHC RDW Plt Count MPV Immature Gran % Seg Neutrophils % Lymphocytes % Monocytes % Eosinophils % Basophils % Neutrophils # Lymphocytes # Monocytes # Eosinophils # Basophils # Toxic Granulation Platelet Estimate ESR Sample Site ABG pH ABG pCO2 ABG pO2 ABG HCO3 ABG Total CO2 ABG O2 Saturation ABG Base Excess Adam Test Respiration Rate O2 Delivery Device Blood Gas Modality Inspired O2 Tidal Volume PEEP Sodium Potassium Chloride Carbon Dioxide BUN Creatinine Est GFR ( Amer) Est GFR (Non-Af Amer) BUN/Creatinine Ratio Glucose POC Glucose 210 H Calculated Osmolality Lactic Acid Calcium Venous Ioniz Calcium Phosphorus Magnesium C-Reactive Protein 249 H Chlamy pneumoniae PCR Not Detected Adenovirus (PCR) Not Detected B. pertussis DNA (PCR) Not Detected B.parapertussis DNA PCR Not Detected Coronavirus OC43 (PCR) Not Detected Coronavirus HKU1 (PCR) Not Detected Coronavirus 229E (PCR) Not Detected Coronavirus NL63 (PCR) Not Detected Human Metapneumovir PCR Not Detected Influenza A (H1) PCR Not Detected Influenza A (H3) PCR Not Detected Influenza Type B (PCR) Not Detected M.pneumoniae DNA (PCR) Not Detected Parainfluenza 1 (PCR) Not Detected Parainfluenza 2 (PCR) Not Detected Parainfluenza 3 (PCR) Not Detected Parainfluenza 4 (PCR) Not Detected RSV (PCR) Not Detected Entero/Rhino (PCR) DETECTED A 10/04/17 10/04/17 10/04/17 19:58 23:36 23:37 WBC RBC Hgb Hct MCV MCH MCHC RDW Plt Count MPV Immature Gran % Seg Neutrophils % Lymphocytes % Monocytes % Eosinophils % Basophils % Neutrophils # Lymphocytes # Monocytes # Eosinophils # Basophils # Toxic Granulation Platelet Estimate ESR Sample Site ABG pH ABG pCO2 ABG pO2 ABG HCO3 ABG Total CO2 ABG O2 Saturation ABG Base Excess Adam Test Respiration Rate O2 Delivery Device Blood Gas Modality Inspired O2 Tidal Volume PEEP Sodium Potassium Chloride Carbon Dioxide BUN Creatinine Est GFR ( Amer) Est GFR (Non-Af Amer) BUN/Creatinine Ratio Glucose POC Glucose 208 H 268 H 212 H Calculated Osmolality Lactic Acid Calcium Venous Ioniz Calcium Phosphorus Magnesium C-Reactive Protein Chlamy pneumoniae PCR Adenovirus (PCR) B. pertussis DNA (PCR) B.parapertussis DNA PCR Coronavirus OC43 (PCR) Coronavirus HKU1 (PCR) Coronavirus 229E (PCR) Coronavirus NL63 (PCR) Human Metapneumovir PCR Influenza A (H1) PCR Influenza A (H3) PCR Influenza Type B (PCR) M.pneumoniae DNA (PCR) Parainfluenza 1 (PCR) Parainfluenza 2 (PCR) Parainfluenza 3 (PCR) Parainfluenza 4 (PCR) RSV (PCR) Entero/Rhino (PCR) 10/05/17 10/05/17 10/05/17 03:50 03:50 03:50 WBC 19.1 H RBC 3.26 L Hgb 10.0 L Hct 31.5 L MCV 96.6 MCH 30.7 MCHC 31.7 RDW 14.6 H Plt Count 175 MPV 8.8 L Immature Gran % 5.4 H Seg Neutrophils % 87.4 Lymphocytes % 2.7 Monocytes % 4.3 Eosinophils % 0.1 Basophils % 0.1 Neutrophils # 16.7 H Lymphocytes # 0.5 L Monocytes # 0.8 Eosinophils # 0.0 Basophils # 0.0 Toxic Granulation Present A Platelet Estimate Normal ESR Sample Site ABG pH ABG pCO2 ABG pO2 ABG HCO3 ABG Total CO2 ABG O2 Saturation ABG Base Excess Adam Test Respiration Rate O2 Delivery Device Blood Gas Modality Inspired O2 Tidal Volume PEEP Sodium 134 L Potassium 4.1 Chloride 98 Carbon Dioxide 24 BUN 63 H Creatinine 1.53 H Est GFR ( Amer) 53 L Est GFR (Non-Af Amer) 43 L BUN/Creatinine Ratio 41 H Glucose 211 H POC Glucose Calculated Osmolality 302 H Lactic Acid 1.8 Calcium 7.9 L Venous Ioniz Calcium Phosphorus 4.7 H Magnesium 1.9 C-Reactive Protein Chlamy pneumoniae PCR Adenovirus (PCR) B. pertussis DNA (PCR) B.parapertussis DNA PCR Coronavirus OC43 (PCR) Coronavirus HKU1 (PCR) Coronavirus 229E (PCR) Coronavirus NL63 (PCR) Human Metapneumovir PCR Influenza A (H1) PCR Influenza A (H3) PCR Influenza Type B (PCR) M.pneumoniae DNA (PCR) Parainfluenza 1 (PCR) Parainfluenza 2 (PCR) Parainfluenza 3 (PCR) Parainfluenza 4 (PCR) RSV (PCR) Entero/Rhino (PCR) 10/05/17 10/05/17 10/05/17 04:06 05:11 06:15 WBC RBC Hgb Hct MCV MCH MCHC RDW Plt Count MPV Immature Gran % Seg Neutrophils % Lymphocytes % Monocytes % Eosinophils % Basophils % Neutrophils # Lymphocytes # Monocytes # Eosinophils # Basophils # Toxic Granulation Platelet Estimate ESR Sample Site R Radial ABG pH 7.38 ABG pCO2 43 ABG pO2 81 L ABG HCO3 25 ABG Total CO2 27 H ABG O2 Saturation 96 ABG Base Excess 0 Adam Test Positive Respiration Rate 14 O2 Delivery Device Adult Vent Blood Gas Modality ASSIST CONTROL Inspired O2 30.0 Tidal Volume 550 PEEP 5 Sodium Potassium Chloride Carbon Dioxide BUN Creatinine Est GFR ( Amer) Est GFR (Non-Af Amer) BUN/Creatinine Ratio Glucose POC Glucose 221 H Calculated Osmolality Lactic Acid Calcium Venous Ioniz Calcium 1.06 L Phosphorus Magnesium C-Reactive Protein Chlamy pneumoniae PCR Adenovirus (PCR) B. pertussis DNA (PCR) B.parapertussis DNA PCR Coronavirus OC43 (PCR) Coronavirus HKU1 (PCR) Coronavirus 229E (PCR) Coronavirus NL63 (PCR) Human Metapneumovir PCR Influenza A (H1) PCR Influenza A (H3) PCR Influenza Type B (PCR) M.pneumoniae DNA (PCR) Parainfluenza 1 (PCR) Parainfluenza 2 (PCR) Parainfluenza 3 (PCR) Parainfluenza 4 (PCR) RSV (PCR) Entero/Rhino (PCR) Cultures: Cultures 10/04/17 16:00 Sputum Culture - Preliminary Sputum 10/04/17 10:05 Legionella Antigen - Final Urine,Clean Catch Streptococcus pneumoniae Antigen (M - Final Serology 10/04/17 Range/Units 15:40 Chlamy pneumoniae PCR Not Detected (Not Detect) Adenovirus (PCR) Not Detected (Not Detect) B. pertussis DNA (PCR) Not Detected (Not Detect) B.parapertussis DNA PCR Not Detected (Not Detect) Coronavirus OC43 (PCR) Not Detected (Not Detect) Coronavirus HKU1 (PCR) Not Detected (Not Detect) Coronavirus 229E (PCR) Not Detected (Not Detect) Coronavirus NL63 (PCR) Not Detected (Not Detect) Human Metapneumovir PCR Not Detected (Not Detect) Influenza A (H1) PCR Not Detected (Not Detect) Influenza A (H3) PCR Not Detected (Not Detect) Influenza Type B (PCR) Not Detected (Not Detect) M.pneumoniae DNA (PCR) Not Detected (Not Detect) Parainfluenza 1 (PCR) Not Detected (Not Detect) Parainfluenza 2 (PCR) Not Detected (Not Detect) Parainfluenza 3 (PCR) Not Detected (Not Detect) Parainfluenza 4 (PCR) Not Detected (Not Detect) RSV (PCR) Not Detected (Not Detect) Entero/Rhino (PCR) DETECTED A (Not Detect) - Impressions Impressions KUB X-Ray 10/04/17 10:41 IMPRESSION: Tip of the orogastric tube is within the stomach. D/ / 10/04/2017 11:10:23 Ole Ramos MD / [email or web address] Interpreting Provider: Ole Ramos MD Abdomen/Pelvis CT 10/04/17 17:00 IMPRESSION: 1. Cardiomegaly with trace bilateral pleural effusions and diffuse anasarca, presumed related to congestive heart failure. Mild interstitial pulmonary edema may be present. 2. Extensive opacities are present in the lower lobes, which could be related to pneumonia and/or atelectasis (examination was performed in the expiratory phase). 3. Bethea catheter tip and balloon are present within the prostate. Air is present in the bladder lumen. Moderately enlarged prostate. 4. Gallstones with mild nonspecific distention of the gallbladder. No findings specific for acute cholecystitis are seen. 5. A 2.1 cm nodule is suspected in the right lobe of the thyroid. Further evaluation with thyroid ultrasound on a nonemergent basis is recommended as clinically indicated. D/ /04/2017 18:18:01 Kraig Mcneil MD / [facility] Interpreting Provider: Kraig Mcneil MD Chest CT 10/04/17 17:00 IMPRESSION: 1. Cardiomegaly with trace bilateral pleural effusions and diffuse anasarca, presumed related to congestive heart failure. Mild interstitial pulmonary edema may be present. 2. Extensive opacities are present in the lower lobes, which could be related to pneumonia and/or atelectasis (examination was performed in the expiratory phase). 3. Bethea catheter tip and balloon are present within the prostate. Air is present in the bladder lumen. Moderately enlarged prostate. 4. Gallstones with mild nonspecific distention of the gallbladder. No findings specific for acute cholecystitis are seen. 5. A 2.1 cm nodule is suspected in the right lobe of the thyroid. Further evaluation with thyroid ultrasound on a nonemergent basis is recommended as clinically indicated. D/ /04/2017 18:18:01 Kraig Mcneil MD / [facility] Interpreting Provider: Kraig Mcneil MD Exam - Constitutional Vitals: Temp Pulse Resp BP Pulse Ox 97.7 F 69 14 103/56 96 10/05/17 08:20 10/05/17 08:00 10/05/17 08:00 10/05/17 08:00 10/05/17 08:00 General appearance: no acute distress Exam: intubated and sedated - Head Head exam: Present: atraumatic, normocephalic - Respiratory Respiratory exam: Present: rales (bilateral lower lobes) - Cardiovascular Cardiovascular exam: Present: RRR. Absent: irregular rhythm, systolic murmur - GI/Abdominal GI/Abdominal exam: Present: normal bowel sounds, soft - Extremities Exam Extremities exam: Present: pedal edema (3+) Consult Discharge Plan - Plan Referrals: Radha Jones, [employer] SPECIALIST [Primary Care Provider] - - Attending Attestation I examined this patient and my medical decision-making was reviewed with the Resident Physician. I agree with the documented findings, disposition and treatment plan as described except to the extent set forth below.
--- NOTE | 2017-10-05 10:29 | Pulmonology Progress Note ---
<RafabeatrizArmando mai - Last Filed: 10/05/17 13:25> Date of Encounter: 10/05/17 Time of Encounter: 09:40 Assessment and Plan (1) Acute respiratory failure with hypoxia Current Visit: Yes Status: Acute Multifactorial with CHF exacerbation and HCAP. On vent. O2 Saturation of 96% with 30% FIO2. - Plan to extubate today and transition to CPAP as long as patient is able to be moved to 5 mg of Levophed. (2) Septic shock Current Visit: Yes Status: Acute Suspected sources include HCAP vs. UTI vs. pressure ulcers. Given recent abd CT finding of emphysematous cystitis, this is probably believed to be the source of the patient's sepsis. Lactic acid has been improving from 3.1 down to 1.8 today. Vitals are stable. Blood cultures are still pending. Negative for Legionella. Urine culture positive for E. coli. Currently on pressor support. Onn vancomycin day 3 and meopenem day 2. - Continue meopenem. - Continue vancomycin. - Infectious disease following. - Follow-up with blood cultures. - Continue pressor support. - No IVF due to CHF exacerbation. 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 Last two abdominal CTs from 09/01/17 and 09/21/17 both demonstrated gas within bladder wall. Patient has been seen by urology as outpatient but has missed multiple recent visits. Urine culture positive for E. coli. Currently being treated with Vancomycin (day 3) and Meropenem (day 3). Current abdominal CT shows bladder within normal limits. - Consult placed to urology for scope. - Continue to monitor renal function and avoid nephrotoxins. - Continue antibiotics. (4) HCAP (healthcare-associated pneumonia) Current Visit: Yes Status: Acute Patient on vanc day 3 and meropenem day 2. WBC count has decreased from 28.5 down to 19.1 today. Sputum culture prelim shows trace gram positive cocci. - Continue vancomycin. - Continue meropenem. - Follow-up with blood cultures. (5) UTI (urinary tract infection) Current Visit: Yes Status: Acute Urine culture positive for E. coli. - continue meropenem. - Infecious disease following. Qualifiers: Urinary tract infection type: catheter-associated UTI Indwelling urinary catheter type: unspecified Encounter type: initial encounter Qualified Code( s): T83.511A - Infection and inflammatory reaction due to indwelling urethral catheter, initial encounter; N39.0 - Urinary tract infection, site not specified (6) CHF exacerbation Current Visit: Yes Status: Acute Patient has increased b/l pedal pitting edema compared to yesterday. + 1385 fluid balance. Lasix was originally put on hold. Last echo was on 07/16 with EF of 45%. Echocardiogram on 10/04/17 shows LVEF of 50-55%. - Restart lasix IV 40 mg BID. - Monitor I & O's. Qualifiers: Heart failure type: systolic Qualified Code(s): I50.23 - Acute on chronic systolic (congestive) heart failure (7) Elevated troponin Current Visit: No Status: Acute Tropnin levels 0.33, 0.38, and 0.50. Likely secondary to demand ischemia. (8) Anemia Current Visit: No Status: Acute Hgb stable at 10. Likely secondary to chronic disease. Qualifiers: Anemia type: unspecified type Qualified Code(s): D64.9 - Anemia, unspecified (9) Diabetes mellitus Current Visit: No Status: Chronic Glucose of 211. - Changed sliding scale from q6h to q4h. Qualifiers: Diabetes mellitus type: type 2 Diabetes mellitus jail insulin use: without ocean transportation intermediary use Diabetes mellitus complication status: with kidney complications Diabetes mellitus complication detail: with chronic kidney disease Chronic kidney disease stage: stage 3 (moderate) Qualified Code(s): E11.22 - Type 2 diabetes mellitus with diabetic chronic kidney disease; N18.3 - Chronic kidney disease, stage 3 (moderate) (10) CKD (chronic kidney disease) Current Visit: No Status: Chronic Creatinine baseline from 1.5-1.6. Current creatinine at 1.53 Qualifiers: Chronic kidney disease stage: stage 3 (moderate) Qualified Code(s): N18.3 - Chronic kidney disease, stage 3 (moderate) (11) History of DVT (deep vein thrombosis) Current Visit: Yes Status: Acute Eliquis on hold. (12) Pressure ulcer of coccygeal region Current Visit: No Status: Acute ID recommending CT to rule out osteomyelitits. Qualifiers: Pressure ulcer stage: unstageable Qualified Code(s): L89.150 - Pressure ulcer of sacral region, unstageable (13) Pressure ulcer of ankle, right, unstageable Current Visit: No Status: Acute See plan above. (14) DVT prophylaxis Current Visit: No Status: Acute Heparin 5000 U SQ BID. Subjective Principal diagnosis: Septic shick, Acue respiratory failure Interval history: Hisotry limited to patient being intubated. Patient denies any chest pain, SOB, nausea, vomiting, fever, chills, or abdominal pain. Objective PUL Vital signs: Last Vital Signs Temp 97.7 F 10/05/17 08:20 Pulse 114 10/05/17 09:00 Resp 14 10/05/17 09:00 BP 112/52 10/05/17 09:00 Pulse Ox 97 10/05/17 09:00 General appearance: no acute distress Eyes: nonicteric Neck: supple Effort: normal Auscultation: bilateral: rhonchi Cardiovascular: regular rate and rhythm Gastrointestinal: hypoactive bowel sounds, soft, non-tender Integumentary: decubitus ulcer (Cocyx ulcer, B/L calcaneal decubitus ulcer ) Extremities: no clubbing, pink and warm, pulses normal, no ischemia or petechiae , edema (+3 B/l pedal pitting edema) normal mental status (Limited assessment due to intubation. ) mood appropriate, affect normal Ventilator Settings Ventilator Settings: Ventilator Settings, Last 8 Hours Ventilator Tidal Volume 550 Setting Ventilator Tidal Volume 550 Setting Ventilator Tidal Volume 550 Setting Ventilator Tidal Volume 550 Setting Ventilator Tidal Volume 550 Setting Ventilator Tidal Volume 550 Setting Ventilator Tidal Volume 550 Setting Ventilator Tidal Volume 550 Setting Ventilator Tidal Volume 550 Setting Ventilator Tidal Volume 550 Setting Ventilator Tidal Volume 550 Setting Ventilator Respiratory Rate 14 Setting Ventilator Respiratory Rate 14 Setting Ventilator Respiratory Rate 14 Setting Ventilator Respiratory Rate 14 Setting Ventilator Respiratory Rate 14 Setting Ventilator Respiratory Rate 14 Setting Ventilator Respiratory Rate 14 Setting Ventilator Respiratory Rate 14 Setting Ventilator Respiratory Rate 14 Setting Ventilator Respiratory Rate 14 Setting Ventilator Respiratory Rate 14 Setting Actual Respiratory Rate 14 Actual Respiratory Rate 14 Actual Respiratory Rate 14 Actual Respiratory Rate 14 Actual Respiratory Rate 14 Actual Respiratory Rate 14 Actual Respiratory Rate 14 Actual Respiratory Rate 14 Actual Respiratory Rate 14 Actual Respiratory Rate 15 Positive End Expiratory 5 Pressure Positive End Expiratory 5 Pressure Positive End Expiratory 5 Pressure Positive End Expiratory 5 Pressure Positive End Expiratory 5 Pressure Positive End Expiratory 5 Pressure Positive End Expiratory 5 Pressure Positive End Expiratory 5 Pressure Positive End Expiratory 5 Pressure Positive End Expiratory 5 Pressure Positive End Expiratory 5 Pressure Peak Inspiratory Airway 16 Pressure Peak Inspiratory Airway 17 Pressure Peak Inspiratory Airway 13.4 Pressure Peak Inspiratory Airway 17 Pressure Peak Inspiratory Airway 19 Pressure Peak Inspiratory Airway 18 Pressure Results - Laboratory Findings CBC and BMP: 10/05/17 03:50 10/05/17 03:50 ABG ABG pH 7.38 pH Units (7.32-7.45) 10/05/17 06:15 ABG pCO2 43 mmHg (35-45) 10/05/17 06:15 ABG pO2 81 mmHg (85-104) L 10/05/17 06:15 ABG O2 Saturation 96 % (95-98) 10/05/17 06:15 PT/INR, D-dimer PT 17.9 Seconds (9.4-12.1) H 10/03/17 19:14 Abnormal lab findings: Abnormal lab results WBC 19.1 K/mcL (4.3-11.1) H 10/05/17 03:50 RBC 3.26 M/mcL (4.19-5.50) L 10/05/17 03:50 Hgb 10.0 g/dL (12.9-16.9) L 10/05/17 03:50 Hct 31.5 % (37.5-50.1) L 10/05/17 03:50 RDW 14.6 % (11.5-14.5) H 10/05/17 03:50 MPV 8.8 fL (9.4-12.4) L 10/05/17 03:50 Immature Gran % 5.4 % (0-4) H 10/05/17 03:50 Neutrophils # 16.7 K/mcL (1.6-8.9) H 10/05/17 03:50 Lymphocytes # 0.5 K/mcL (0.6-4.6) L 10/05/17 03:50 Toxic Granulation Present (Not Present) A 10/05/17 03:50 Dohle Bodies Present (Not Present) A 10/03/17 19:14 Polychromasia 1+ (Not Present) A 10/03/17 19:14 ESR 93 mm/hr (0-10) H 10/04/17 14:44 PT 17.9 Seconds (9.4-12.1) H 10/03/17 19:14 ABG pO2 81 mmHg (85-104) L 10/05/17 06:15 ABG Total CO2 27 mEq/L (20-26) H 10/05/17 06:15 Sodium 134 mEq/L (136-145) L 10/05/17 03:50 BUN 63 mg/dL (8-23) H 10/05/17 03:50 Creatinine 1.53 mg/dL (0.70-1.30) H 10/05/17 03:50 Est GFR ( Amer) 53 (> 60) L 10/05/17 03:50 Est GFR (Non-Af Amer) 43 (> 60) L 10/05/17 03:50 BUN/Creatinine Ratio 41 (6-26) H 10/05/17 03:50 Glucose 211 mg/dL (70-105) H 10/05/17 03:50 POC Glucose 221 mg/dL (70-99) H 10/05/17 05:11 Calculated Osmolality 302 (280-300) H 10/05/17 03:50 Calcium 7.9 mg/dL (8.6-10.3) L 10/05/17 03:50 Venous Ioniz Calcium 1.06 mmol/L (1.15-1.35) L 10/05/17 04:06 Phosphorus 4.7 mg/dL (2.7-4.5) H 10/05/17 03:50 Iron < 10 mcg/dL (65-175) L 10/04/17 00:30 Transferrin 86 mg/dL (203-362) L 10/04/17 00:30 Ferritin 1262 ng/mL (20-250) H 10/04/17 00:30 AST 41 Units/L (13-39) H 10/03/17 19:14 Alkaline Phosphatase 271 Units/L (34-104) H 10/03/17 19:14 Troponin I 0.50 ng/mL (< 0.04) H* 10/04/17 05:50 C-Reactive Protein 249 mg/L (Less than 10) H 10/04/17 14:44 B-Natriuretic Peptide 1124 pg/mL (Less than 100) H 10/03/17 19:14 Serum Total Protein 4.4 g/dL (6.4-8.9) L 10/03/17 19:14 Albumin 1.9 g/dL (3.5-5.7) L 06/05/18 19:14 Albumin/Globulin Ratio 0.8 (1.1-2.2) L 10/03/17 19:14 Urine Clarity Cloudy (Clear) A 10/03/17 18:11 Urine Protein 30 mg/dL (Neg-Trace) H 10/03/17 18:11 Urine Blood Large (Negative) H 10/03/17 18:11 Ur Leukocyte Esterase Large (Negative) H 10/03/17 18:11 Urine Microscopic RBC 15-30 per hpf (0-3) H 10/03/17 18:11 Urine Microscopic WBC 30-50 per hpf (0-3) H 10/03/17 18:11 Urine Bacteria Many per hpf (None-Few) H 10/03/17 18:11 Ur Culture Indicated? YES (NO) A 10/03/17 18:11 Enterobacteriac sp PCR DETECTED (Not Detect) A 10/03/17 19:14 E. coli (PCR) DETECTED (Not Detect) A 10/03/17 19:14 Entero/Rhino (PCR) DETECTED (Not Detect) A 10/04/17 15:40 - Microbiology Findings Microbiology Findings: Microbiology, Last 48 Hours 10/04/17 16:00 Sputum Culture - Preliminary Sputum 10/04/17 10:05 Legionella Antigen - Final Urine,Clean Catch Streptococcus pneumoniae Antigen (M - Final - Clinical Findings Intake & Output: Intake & Output 10/04/17 10/05/17 10/05/17 23:59 07:59 15:59 Intake Total 1199 / 1199 476 / 476 Output Total 500 / 500 850 / 850 100 / 100 Balance 699 / 699 -374 / -374 -100 / -100 Weight 126.3 kg Consult Discharge Plan - Plan Referrals: Radha Jones, TAFFY PULLER [Primary Care Provider] - <Batsheva Damico - Last Filed: 10/05/17 17:17> Date of Encounter: 10/05/17 Objective PUL Vital signs: Last Vital Signs Temp 97.6 F 10/05/17 12:13 Pulse 102 10/05/17 16:00 Resp 14 10/05/17 16:00 BP 103/60 10/05/17 16:00 Pulse Ox 96 10/05/17 16:00 Ventilator Settings Ventilator Settings: Ventilator Settings, Last 8 Hours Ventilator Tidal Volume 550 Setting Ventilator Tidal Volume 550 Setting Ventilator Tidal Volume 550 Setting Ventilator Tidal Volume 550 Setting Ventilator Tidal Volume 550 Setting Ventilator Tidal Volume 550 Setting Ventilator Tidal Volume 550 Setting Ventilator Tidal Volume 550 Setting Ventilator Tidal Volume 550 Setting Ventilator Respiratory Rate 14 Setting Ventilator Respiratory Rate 14 Setting Ventilator Respiratory Rate 14 Setting Ventilator Respiratory Rate 14 Setting Ventilator Respiratory Rate 14 Setting Ventilator Respiratory Rate 14 Setting Ventilator Respiratory Rate 14 Setting Ventilator Respiratory Rate 14 Setting Ventilator Respiratory Rate 14 Setting Actual Respiratory Rate 17 Actual Respiratory Rate 14 Actual Respiratory Rate 14 Actual Respiratory Rate 14 Actual Respiratory Rate 14 Actual Respiratory Rate 16 Actual Respiratory Rate 16 Actual Respiratory Rate 14 Actual Respiratory Rate 14 Positive End Expiratory 5 Pressure Positive End Expiratory 5 Pressure Positive End Expiratory 5 Pressure Positive End Expiratory 5 Pressure Positive End Expiratory 5 Pressure Positive End Expiratory 5 Pressure Positive End Expiratory 5 Pressure Positive End Expiratory 5 Pressure Positive End Expiratory 5 Pressure Peak Inspiratory Airway 18 Pressure Peak Inspiratory Airway 19 Pressure Peak Inspiratory Airway 17 Pressure Peak Inspiratory Airway 19 Pressure Peak Inspiratory Airway 17 Pressure Peak Inspiratory Airway 19 Pressure Peak Inspiratory Airway 17 Pressure Peak Inspiratory Airway 18 Pressure Peak Inspiratory Airway 17 Pressure Results - Laboratory Findings CBC and BMP: 10/05/17 03:50 10/05/17 03:50 ABG ABG pH 7.38 pH Units (7.32-7.45) 10/05/17 06:15 ABG pCO2 43 mmHg (35-45) 10/05/17 06:15 ABG pO2 81 mmHg (85-104) L 10/05/17 06:15 ABG O2 Saturation 96 % (95-98) 10/05/17 06:15 PT/INR, D-dimer PT 17.9 Seconds (9.4-12.1) H 10/03/17 19:14 Abnormal lab findings: Abnormal lab results WBC 19.1 K/mcL (4.3-11.1) H 10/05/17 03:50 RBC 3.26 M/mcL (4.19-5.50) L 10/05/17 03:50 Hgb 10.0 g/dL (12.9-16.9) L 10/05/17 03:50 Hct 31.5 % (37.5-50.1) L 10/05/17 03:50 RDW 14.6 % (11.5-14.5) H 10/05/17 03:50 MPV 8.8 fL (9.4-12.4) L 10/05/17 03:50 Immature Gran % 5.4 % (0-4) H 10/05/17 03:50 Neutrophils # 16.7 K/mcL (1.6-8.9) H 10/05/17 03:50 Lymphocytes # 0.5 K/mcL (0.6-4.6) L 10/05/17 03:50 Toxic Granulation Present (Not Present) A 10/05/17 03:50 Dohle Bodies Present (Not Present) A 10/03/17 19:14 Polychromasia 1+ (Not Present) A 10/03/17 19:14 ESR 93 mm/hr (0-10) H 10/04/17 14:44 PT 17.9 Seconds (9.4-12.1) H 10/03/17 19:14 ABG pO2 81 mmHg (85-104) L 10/05/17 06:15 ABG Total CO2 27 mEq/L (20-26) H 10/05/17 06:15 Sodium 134 mEq/L (136-145) L 10/05/17 03:50 BUN 63 mg/dL (8-23) H 10/05/17 03:50 Creatinine 1.53 mg/dL (0.70-1.30) H 10/05/17 03:50 Est GFR ( Amer) 53 (> 60) L 10/05/17 03:50 Est GFR (Non-Af Amer) 43 (> 60) L 10/05/17 03:50 BUN/Creatinine Ratio 41 (6-26) H 10/05/17 03:50 Glucose 211 mg/dL (70-105) H 10/05/17 03:50 POC Glucose 188 mg/dL (70-99) H 10/05/17 16:41 Calculated Osmolality 302 (280-300) H 10/05/17 03:50 Calcium 7.9 mg/dL (8.6-10.3) L 10/05/17 03:50 Venous Ioniz Calcium 1.06 mmol/L (1.15-1.35) L 10/05/17 16:52 Phosphorus 4.7 mg/dL (2.7-4.5) H 10/05/17 03:50 Iron < 10 mcg/dL (65-175) L 10/04/17 00:30 Transferrin 86 mg/dL (203-362) L 10/04/17 00:30 Ferritin 1262 ng/mL (20-250) H 10/04/17 00:30 AST 41 Units/L (13-39) H 10/03/17 19:14 Alkaline Phosphatase 271 Units/L (34-104) H 10/03/17 19:14 Troponin I 0.50 ng/mL (< 0.04) H* 10/04/17 05:50 C-Reactive Protein 249 mg/L (Less than 10) H 10/04/17 14:44 B-Natriuretic Peptide 1124 pg/mL (Less than 100) H 10/03/17 19:14 Serum Total Protein 4.4 g/dL (6.4-8.9) L 10/03/17 19:14 Albumin 1.9 g/dL (3.5-5.7) L 10/03/17 19:14 Albumin/Globulin Ratio 0.8 (1.1-2.2) L 10/03/17 19:14 Urine Clarity Cloudy (Clear) A 10/03/17 18:11 Urine Protein 30 mg/dL (Neg-Trace) H 10/03/17 18:11 Urine Blood Large (Negative) H 10/03/17 18:11 Ur Leukocyte Esterase Large (Negative) H 10/03/17 18:11 Urine Microscopic RBC 15-30 per hpf (0-3) H 10/03/17 18:11 Urine Microscopic WBC 30-50 per hpf (0-3) H 10/03/17 18:11 Urine Bacteria Many per hpf (None-Few) H 10/03/17 18:11 Ur Culture Indicated? YES (NO) A 10/03/17 18:11 Enterobacteriac sp PCR DETECTED (Not Detect) A 10/03/17 19:14 E. coli (PCR) DETECTED (Not Detect) A 10/03/17 19:14 Entero/Rhino (PCR) DETECTED (Not Detect) A 10/04/17 15:40 - Microbiology Findings Microbiology Findings: Microbiology, Last 48 Hours 10/04/17 16:00 Sputum Culture - Preliminary Sputum 10/04/17 10:05 Legionella Antigen - Final Urine,Clean Catch Streptococcus pneumoniae Antigen (M - Final - Clinical Findings Intake & Output: Intake & Output 10/05/17 10/05/17 10/05/17 07:59 15:59 23:59 Intake Total 476 / 476 1115 / 1115 Output Total 850 / 850 150 / 150 Balance -374 / -374 965 / 965 Weight 126.3 kg - Attending Attestation I examined this patient and my medical decision-making was reviewed with the Resident Physician. I agree with the documented findings, disposition and treatment plan as described except to the extent set forth below. Patient seen and examined. Labs, radiology, chart personally reviewed. 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 We will plan for spontaneous breathing trial and even extubation if requirement for Levophed Is less. Cardiovascular: Patient continue in shock which is most likely septic in nature. GI: Nutrition per dietary and GI prophylaxis per routine Heme: DVT prophylaxis per routine ID: Continue antibiotics and plan to de-escalation. Infectious disease follow- up. Renal; urine out put and renal funtion reviewed. Will consider urology consultation Endorcine: blood glucose is monitored Lines: all lines checked and no evidence of infections Skin: skin care to prevent pressure ulcers per nursing routine care Overall prognosis is poor, continue supportive care and patient remain full code.
[2017-10-05] MEDS ORDERED: Albumin Human 5% 25.0 GM/500 ML VIAL ONE (10:45)
--- NOTE | 2017-10-05 10:48 | Event Note ---
Date of Encounter: 10/05/17 Time of Encounter: 10:48 Patient still on the vent, management per primary service-intensive care
[2017-10-05] MEDS: FentaNYL (PF) 1,000 MCG in 0.9 % Sodium Chloride 80 ML IVC SCH ×2 (11:45→23:10)
[2017-10-05 16:55] LABS: VBG Ionized Calcium 1.06 mmol/L (1.15-1.35)
--- NOTE | 2017-10-05 17:30 | Urology - Consult Note ---
Date of Encounter: 10/05/17 Time of Encounter: 17:27 - Assessment and Plan (1) Maria catheter problem Current Visit: Yes Status: Acute Assessment and plan: Patient was prepped and draped in normal sterile fashion. I had removed the old catheter by this time. I then placed a 18-Guyanese coude catheter with a moderate amount of resistance her on the prostate. 10 mL of sterile water placed in the balloon. We will need to keep in place. Qualifiers: Encounter type: initial encounter Qualified Code(s): T83.9XXA - Unspecified complication of genitourinary prosthetic device, implant and graft, initial encounter (2) Recurrent urinary tract infection Current Visit: Yes Status: Acute Assessment and plan: Patient well-known to urology service for recurrent urinary tract infections. No further treatment at this time. Only treat symptomatically infections. Infectious disease is on board. (3) Urinary retention Current Visit: No Status: Chronic Assessment and plan: Need to keep catheter in place. 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 Patient did undergo greenlight surgery in past Dr. Lara. We will continue to follow up patient in hospital. Urology CN:HPI Consult date: 10/05/17 Reason for consult Urology: Other (recurrent uti and malpositioned maria) Requesting physician: Armando Gonzales History of present illness: Mathew is a 87-year-old male well known to the urology service for recurrent UTIs and permanent urinary retention. Patient was not dilated by me during last admission. Catheter then placed this admission secondary to inability to void and CT scan revealed balloon within prostate. Patient unable to answer questions secondary to intubation today. Past Med Surg Social Fam HX - Past Medical History Medical history: arthritis, CHF, DVT, diabetes, hypertension, kidney stones, renal disease, other Additional medical history: UTI,PAcer, Alzheimers, Cellulitis Psychiatric history: anxiety - Past Surgical History Surgical History: herniorrhaphy, pacemaker/AICD Additional surgical history: I7D LLE. Back Surgery. Right knee. von wellenbrand. bilat carpal tunnel - Social History Smoking Status: Never smoker Smokeless Tobacco Status: No Alcohol use: none, rarely Drug use: none - Family History Father Hx Family Cardiac Disorders: Yes Hx Family Respiratory Disorders: No Hx Family Cancer: No Hx Family GI Disorders: No Hx Family Endocrine Disorder: No Hx Family Neuromuscular Disorders: No Hx Family Neurologic Disorders: No Hx Family HEENT Disorders: No Hx Family Autoimmune Disorders: No Mother Family Member Ethnicity: Non- Living Status: Hx Family Cardiac Disorders: No Hx Family Respiratory Disorders: No Hx Family Cancer: No Hx Family GI Disorders: No Hx Family Endocrine Disorder: No Hx Family Neuromuscular Disorders: No Hx Family Neurologic Disorders: No Hx Family HEENT Disorders: No Hx Family Autoimmune Disorders: No Medications and Allergies Tamsulosin [Flomax] 0.4 mg PO DAILY capsule 08/06/15 [Rx] Atorvastatin [Lipitor] 40 mg PO DAILY 09/07/15 [History] Cholecalciferol (D-3) [Vitamin D] 2,000 unit PO DAILY 05/09/17 [History] Furosemide [Lasix] 40 mg PO DAILY 07/27/17 [History] Apixaban [Eliquis] 2.5 mg PO BID #60 tablet 07/30/17 [Rx] Aspirin Enteric Coated [Aspirin EC] 81 mg PO DAILY #30 tablet. 07/30/17 [Rx] Ondansetron [Zofran ODT] 8 mg PO TID PRN 09/01/17 [History] PARoxetine HCl [Paroxetine HCl] 10 mg PO QAM 09/01/17 [History] Gabapentin [Neurontin] 300 mg PO BID 7 Days #14 capsule 09/06/17 [Rx] Acetaminophen [Tylenol Arthritis] 650 mg PO TID 09/13/17 [History] Docusate [Colace] 100 mg PO BID 09/13/17 [History] Insulin LISPRO [HumaLOG] 0 units SQ TIDAC #1 each 09/24/17 [Rx] Losartan [Cozaar] 25 mg PO DAILY 09/26/17 [History] Benzonatate [Tessalon] 100 mg PO TID 10/03/17 [History] Ertapenem [INVanz] 1,000 mg IVPB DAILY 10/03/17 [History] Guaifenesin [Mucinex] 600 mg PO BID 10/03/17 [History] Ipratropium/Albuterol Neb [Duoneb] 3 ml IH Q6HR 10/03/17 [History] 3 Allergy/AdvReac Type Severity Reaction Status Date / Time No Known Allergies Allergy Verified 10/03/17 21:14 Review of Systems ROS unobtainable: due to endotracheal tube Exam Initial Vital Signs Temp Pulse Resp BP Pulse Ox 99.6 F 93 24 93/37 98 10/03/17 18:02 10/03/17 18:02 10/03/17 18:02 10/03/17 18:02 10/03/17 18:02 General/Neuological: Awake with intubation tube present Eyes: normal pupils, non-icteric Mouth: Endotracheal tube in place Neck: no lymphadenopathy noted, supple to touch Cardiovascular: RRR, no murmurs ABD: soft, nontender, no masses palpated, good bowel sounds Back: no pain on percussion bilaterally : normal phallus, normal scrotum, testicles and epididymides normal, urethral meatus normal. Catheter in place but catheter appears malpositioned clear urine in catheter tubing Skin: no rashes noted Urology Results - Labs 10/05/17 03:50 10/05/17 03:50 Abnormal lab results WBC 19.1 K/mcL (4.3-11.1) H 10/05/17 03:50 RBC 3.26 M/mcL (4.19-5.50) L 10/05/17 03:50 Hgb 10.0 g/dL (12.9-16.9) L 10/05/17 03:50 Hct 31.5 % (37.5-50.1) L 10/05/17 03:50 RDW 14.6 % (11.5-14.5) H 10/05/17 03:50 MPV 8.8 fL (9.4-12.4) L 10/05/17 03:50 Immature Gran % 5.4 % (0-4) H 10/05/17 03:50 Neutrophils # 16.7 K/mcL (1.6-8.9) H 10/05/17 03:50 Lymphocytes # 0.5 K/mcL (0.6-4.6) L 10/05/17 03:50 Toxic Granulation Present (Not Present) A 10/05/17 03:50 Dohle Bodies Present (Not Present) A 10/03/17 19:14 Polychromasia 1+ (Not Present) A 10/03/17 19:14 ESR 93 mm/hr (0-10) H 10/04/17 14:44 PT 17.9 Seconds (9.4-12.1) H 10/03/17 19:14 ABG pO2 81 mmHg (85-104) L 10/05/17 06:15 ABG Total CO2 27 mEq/L (20-26) H 10/05/17 06:15 Sodium 134 mEq/L (136-145) L 10/05/17 03:50 BUN 63 mg/dL (8-23) H 10/05/17 03:50 Creatinine 1.53 mg/dL (0.70-1.30) H 10/05/17 03:50 Est GFR ( Amer) 53 (> 60) L 10/05/17 03:50 Est GFR (Non-Af Amer) 43 (> 60) L 10/05/17 03:50 BUN/Creatinine Ratio 41 (6-26) H 10/05/17 03:50 Glucose 211 mg/dL (70-105) H 10/05/17 03:50 POC Glucose 188 mg/dL (70-99) H 10/05/17 16:41 Calculated Osmolality 302 (280-300) H 10/05/17 03:50 Calcium 7.9 mg/dL (8.6-10.3) L 10/05/17 03:50 Venous Ioniz Calcium 1.06 mmol/L (1.15-1.35) L 10/05/17 16:52 Phosphorus 4.7 mg/dL (2.7-4.5) H 10/05/17 03:50 Iron < 10 mcg/dL (65-175) L 10/04/17 00:30 Transferrin 86 mg/dL (203-362) L 10/04/17 00:30 Ferritin 1262 ng/mL (20-250) H 10/04/17 00:30 AST 41 Units/L (13-39) H 10/03/17 19:14 Alkaline Phosphatase 271 Units/L (34-104) H 10/03/17 19:14 Troponin I 0.50 ng/mL (< 0.04) H* 10/04/17 05:50 C-Reactive Protein 249 mg/L (Less than 10) H 10/04/17 14:44 B-Natriuretic Peptide 1124 pg/mL (Less than 100) H 10/03/17 19:14 Serum Total Protein 4.4 g/dL (6.4-8.9) L 10/03/17 19:14 Albumin 1.9 g/dL (3.5-5.7) L 10/03/17 19:14 Albumin/Globulin Ratio 0.8 (1.1-2.2) L 10/03/17 19:14 Urine Clarity Cloudy (Clear) A 10/03/17 18:11 Urine Protein 30 mg/dL (Neg-Trace) H 10/03/17 18:11 Urine Blood Large (Negative) H 10/03/17 18:11 Ur Leukocyte Esterase Large (Negative) H 10/03/17 18:11 Urine Microscopic RBC 15-30 per hpf (0-3) H 10/03/17 18:11 Urine Microscopic WBC 30-50 per hpf (0-3) H 10/03/17 18:11 Urine Bacteria Many per hpf (None-Few) H 10/03/17 18:11 Ur Culture Indicated? YES (NO) A 10/03/17 18:11 Enterobacteriac sp PCR DETECTED (Not Detect) A 10/03/17 19:14 E. coli (PCR) DETECTED (Not Detect) A 10/03/17 19:14 Entero/Rhino (PCR) DETECTED (Not Detect) A 10/04/17 15:40 Diabetes panel 10/05/17 Range/Units 03:50 Sodium 134 L (136-145) mEq/L Potassium 4.1 (3.5-5.1) mEq/L Chloride 98 (98-107) mEq/L Carbon Dioxide 24 (23-29) mEq/L BUN 63 H (8-23) mg/dL Creatinine 1.53 H (0.70-1.30) mg/dL Glucose 211 H (70-105) mg/dL Calcium 7.9 L (8.6-10.3) mg/dL Calcium panel 10/05/17 Range/Units 03:50 Calcium 7.9 L (8.6-10.3) mg/dL Phosphorus 4.7 H (2.7-4.5) mg/dL Pituitary panel 10/05/17 Range/Units 03:50 Sodium 134 L (136-145) mEq/L Potassium 4.1 (3.5-5.1) mEq/L Chloride 98 (98-107) mEq/L Carbon Dioxide 24 (23-29) mEq/L BUN 63 H (8-23) mg/dL Creatinine 1.53 H (0.70-1.30) mg/dL Glucose 211 H (70-105) mg/dL Calcium 7.9 L (8.6-10.3) mg/dL Adrenal panel 10/05/17 Range/Units 03:50 Sodium 134 L (136-145) mEq/L Potassium 4.1 (3.5-5.1) mEq/L Chloride 98 (98-107) mEq/L Carbon Dioxide 24 (23-29) mEq/L BUN 63 H (8-23) mg/dL Creatinine 1.53 H (0.70-1.30) mg/dL Glucose 211 H (70-105) mg/dL Calcium 7.9 L (8.6-10.3) mg/dL All other labs normal. - Imaging CT scan - abdomen: image reviewed CT scan - pelvis: image reviewed Consult Discharge Plan - Plan Referrals: Radha Jones, RN QUALITY [Primary Care Provider] -
[2017-10-05] MEDS: Chlorhexidine Rinse 15 ML MOUTHWASH MM SCH (21:20)
[2017-10-05] MEDS: Phenylephrine 20 MG in D5% in Water 250 ML IVC SCH (22:00)
[2017-10-06] MEDS: Phenylephrine 20 MG in D5% in Water 250 ML IVC SCH ×2 (02:21→17:08)
[2017-10-06] MEDS: Ipratropium/Albuterol Neb 3 ML IH SCH ×4 (04:24→21:35)
[2017-10-06] MEDS: Insulin LISPRO 300 UNITS/3 ML VIAL SQ SCH ×6 (04:56→20:52)
[2017-10-06 04:58] LABS: ABG Base Excess 1 mEq/L (-2 to 3); ABG HCO3 26 mEq/L (21-27); ABG Oxygen Saturation 93 % (95-98); ABG PCO2 43 mmHg (35-45); ABG PO2 68 mmHg (85-104); ABG TCO2 27 mEq/L (20-26); Blood Gas Modality PRVC; Blood Gas PEEP 5 cm H2O; Blood Gas Respiration Rate 14; Blood Gas VT 550 cc
[2017-10-06 05:09] LABS: Basophils % 0.1 %; Eosinophils # 0.2 K/mcL (0.0-0.6); Eosinophils % 1.7 %; Hematocrit 29.3 % (37.5-50.1); Hemoglobin 9.5 g/dL (12.9-16.9); Immature Granulocytes % 0.7 % (0-4); Lymphocytes # 0.4 K/mcL (0.6-4.6); Lymphocytes % 3.1 %; Mean Corpuscular HGB Conc 32.4 g/dL (31.6-35.5); Mean Corpuscular Hemoglobin 30.6 pg (28.0-33.3); Mean Corpuscular Volume 94.5 fL (83.0-100.0); Mean Platelet Volume 9.5 fL (9.4-12.4); Monocytes # 0.5 K/mcL (0.0-1.3); Monocytes % 4.3 %; Neutrophils # 10.2 K/mcL (1.6-8.9); Platelet Count 139 K/mcL (140-400); Red Cell Distribution Width 14.6 % (11.5-14.5); Segmented Neutrophils % 90.1 %
[2017-10-06 05:22] LABS: VBG Ionized Calcium 1.07 mmol/L (1.15-1.35)
[2017-10-06 05:29] LABS: Calcium 7.9 mg/dL (8.6-10.3); Potassium 4.3 mEq/L (3.5-5.1)
[2017-10-06 05:30] LABS: Magnesium 2.3 mg/dL (1.6-2.6); Phosphorous 4.7 mg/dL (2.7-4.5)
[2017-10-06 05:36] LABS: Platelet Estimate Normal (Normal)
[2017-10-06] MEDS: Ertapenem 1,000 MG in 0.9 % Sodium Chloride Mini Bag 100 ML IVPB SCH (08:29)
[2017-10-06] MEDS: *HR* Heparin 5,000 UNIT/ML VIAL SQ SCH ×2 (08:30→15:20)
[2017-10-06] MEDS: Pantoprazole 40 MG VIAL IVP SCH (08:30)
[2017-10-06] MEDS: Chlorhexidine Rinse 15 ML MOUTHWASH MM SCH (08:31)
[2017-10-06] MEDS: Furosemide 40 MG/4 ML VIAL IVP SCH ×2 (08:31→17:06)
[2017-10-06] MEDS: Lacri-Lube 3.5 GM TUBE BOTH EYES SCH (08:31)
--- NOTE | 2017-10-06 09:03 | Pulmonology Progress Note ---
<MargauxSagebre M - Last Filed: 10/06/17 10:12> Date of Encounter: 10/06/17 Objective PUL Vital signs: Last Vital Signs Temp 98.2 F 10/06/17 07:29 Pulse 90 10/06/17 08:00 Resp 17 10/06/17 08:40 BP 97/88 10/06/17 08:00 Pulse Ox 94 10/06/17 08:40 Ventilator Settings Ventilator Settings: Ventilator Settings, Last 8 Hours Ventilator Tidal Volume 550 Setting Ventilator Tidal Volume 550 Setting Ventilator Tidal Volume 550 Setting Ventilator Tidal Volume 550 Setting Ventilator Tidal Volume 550 Setting Ventilator Tidal Volume 550 Setting Ventilator Tidal Volume 550 Setting Ventilator Tidal Volume 550 Setting Ventilator Respiratory Rate 14 Setting Ventilator Respiratory Rate 14 Setting Ventilator Respiratory Rate 14 Setting Ventilator Respiratory Rate 14 Setting Ventilator Respiratory Rate 14 Setting Ventilator Respiratory Rate 14 Setting Ventilator Respiratory Rate 14 Setting Ventilator Respiratory Rate 14 Setting Actual Respiratory Rate 14 Actual Respiratory Rate 14 Actual Respiratory Rate 15 Actual Respiratory Rate 14 Actual Respiratory Rate 14 Actual Respiratory Rate 15 Actual Respiratory Rate 16 Actual Respiratory Rate 15 Positive End Expiratory 5 Pressure Positive End Expiratory 5 Pressure Positive End Expiratory 5 Pressure Positive End Expiratory 5 Pressure Positive End Expiratory 5 Pressure Positive End Expiratory 5 Pressure Positive End Expiratory 5 Pressure Positive End Expiratory 5 Pressure Positive End Expiratory 5 Pressure Peak Inspiratory Airway 10 Pressure Peak Inspiratory Airway 17 Pressure Peak Inspiratory Airway 16 Pressure Peak Inspiratory Airway 19 Pressure Peak Inspiratory Airway 19 Pressure Peak Inspiratory Airway 18 Pressure Peak Inspiratory Airway 21 Pressure Peak Inspiratory Airway 16 Pressure Results - Laboratory Findings CBC and BMP: 10/06/17 04:50 10/06/17 04:50 ABG ABG pH 7.40 pH Units (7.32-7.45) 10/06/17 04:56 ABG pCO2 43 mmHg (35-45) 10/06/17 04:56 ABG pO2 68 mmHg (85-104) L 10/06/17 04:56 ABG O2 Saturation 93 % (95-98) L 10/06/17 04:56 PT/INR, D-dimer PT 17.9 Seconds (9.4-12.1) H 10/03/17 19:14 Abnormal lab findings: Abnormal lab results WBC 11.3 K/mcL (4.3-11.1) H 10/06/17 04:50 RBC 3.10 M/mcL (4.19-5.50) L 10/06/17 04:50 Hgb 9.5 g/dL (12.9-16.9) L 10/06/17 04:50 Hct 29.3 % (37.5-50.1) L 10/06/17 04:50 RDW 14.6 % (11.5-14.5) H 10/06/17 04:50 Plt Count 139 K/mcL (140-400) L 10/06/17 04:50 Neutrophils # 10.2 K/mcL (1.6-8.9) H 10/06/17 04:50 Lymphocytes # 0.4 K/mcL (0.6-4.6) L 10/06/17 04:50 Toxic Granulation Present (Not Present) A 10/05/17 03:50 Dohle Bodies Present (Not Present) A 10/03/17 19:14 Polychromasia 1+ (Not Present) A 10/03/17 19:14 ESR 93 mm/hr (0-10) H 10/04/17 14:44 PT 17.9 Seconds (9.4-12.1) H 10/03/17 19:14 ABG pO2 68 mmHg (85-104) L 10/06/17 04:56 ABG Total CO2 27 mEq/L (20-26) H 10/06/17 04:56 ABG O2 Saturation 93 % (95-98) L 10/06/17 04:56 Sodium 131 mEq/L (136-145) L 10/06/17 04:50 BUN 68 mg/dL (8-23) H 10/06/17 04:50 Creatinine 1.63 mg/dL (0.70-1.30) H 10/06/17 04:50 Est GFR ( Amer) 49 (> 60) L 10/06/17 04:50 Est GFR (Non-Af Amer) 40 (> 60) L 10/06/17 04:50 BUN/Creatinine Ratio 42 (6-26) H 10/06/17 04:50 Glucose 173 mg/dL (70-105) H 10/06/17 04:50 POC Glucose 148 mg/dL (70-99) H 10/06/17 07:15 Calcium 7.9 mg/dL (8.6-10.3) L 10/06/17 04:50 Venous Ioniz Calcium 1.07 mmol/L (1.15-1.35) L 10/06/17 05:18 Phosphorus 4.7 mg/dL (2.7-4.5) H 10/06/17 04:50 Iron < 10 mcg/dL (65-175) L 10/04/17 00:30 Transferrin 86 mg/dL (203-362) L 10/04/17 00:30 Ferritin 1262 ng/mL (20-250) H 10/04/17 00:30 AST 41 Units/L (13-39) H 10/03/17 19:14 Alkaline Phosphatase 271 Units/L (34-104) H 10/03/17 19:14 Troponin I 0.50 ng/mL (< 0.04) H* 10/04/17 05:50 C-Reactive Protein 249 mg/L (Less than 10) H 10/04/17 14:44 B-Natriuretic Peptide 1124 pg/mL (Less than 100) H 10/03/17 19:14 Serum Total Protein 4.4 g/dL (6.4-8.9) L 10/03/17 19:14 Albumin 1.9 g/dL (3.5-5.7) L 10/03/17 19:14 Albumin/Globulin Ratio 0.8 (1.1-2.2) L 10/03/17 19:14 Urine Clarity Cloudy (Clear) A 10/03/17 18:11 Urine Protein 30 mg/dL (Neg-Trace) H 10/03/17 18:11 Urine Blood Large (Negative) H 10/03/17 18:11 Ur Leukocyte Esterase Large (Negative) H 10/03/17 18:11 Urine Microscopic RBC 15-30 per hpf (0-3) H 10/03/17 18:11 Urine Microscopic WBC 30-50 per hpf (0-3) H 10/03/17 18:11 Urine Bacteria Many per hpf (None-Few) H 10/03/17 18:11 Ur Culture Indicated? YES (NO) A 10/03/17 18:11 Nasal Screen MRSA (PCR) Positive (Negative) A 10/05/17 18:36 Vancomycin Trough 20 mcg/mL (5-10) H 10/05/17 18:13 Enterobacteriac sp PCR DETECTED (Not Detect) A 10/03/17 19:14 E. coli (PCR) DETECTED (Not Detect) A 10/03/17 19:14 Entero/Rhino (PCR) DETECTED (Not Detect) A 10/04/17 15:40 - Microbiology Findings Microbiology Findings: Microbiology, Last 48 Hours 10/04/17 16:00 Sputum Culture - Preliminary Sputum 10/04/17 10:05 Legionella Antigen - Final Urine,Clean Catch Streptococcus pneumoniae Antigen (M - Final - Clinical Findings Intake & Output: Intake & Output 10/05/17 10/06/17 10/06/17 23:59 07:59 15:59 Intake Total 920 / 920 733 / 733 479 / 479 Output Total 550 / 550 350 / 350 Balance 370 / 370 383 / 383 479 / 479 Weight 126.3 kg 126.3 kg Consult Discharge Plan - Plan Referrals: Radha Jones, HOS[facility] MATER [Primary Care Provider] - - Attending Attestation I examined this patient and my medical decision-making was reviewed with the Resident Physician. I agree with the documented findings, disposition and treatment plan as described except to the extent set forth below. Patient seen and examined. Labs, radiology, chart personally reviewed. Agree with resident's history and physical, assessment, plan with following comments: CARDIO TECH: Patient follows commands, Pulmonary: Acceptable oxygenation and ventilation. Plan for SBT and extubation. Cardiovascular: Patient continue in shock which is most likely septic in nature. Less requirement for pressors. GI: Nutrition per dietary and GI prophylaxis per routine Heme: DVT prophylaxis per routine ID: Continue antibiotics and plan to de-escalation. Infectious disease follow- up. Renal; urine out put and renal funtion reviewed. Appreciate urology help Endorcine: blood glucose is monitored Lines: all lines checked and no evidence of infections Skin: skin care to prevent pressure ulcers per nursing routine care Overall prognosis is poor, continue supportive care and patient remain full code. <Armando Gonzales - Last Filed: 10/06/17 13:23> Date of Encounter: 10/06/17 Time of Encounter: 08:50 Assessment and Plan (1) Acute respiratory failure with hypoxia Current Visit: Yes Status: Acute Multifactorial with CHF exacerbation and HCAP. Was on CPAP earlier this morning. Was later extubated. O2 sat or 96% on RA. - Tolerating extubation. Good O2 sat. - Swallow eval ordered. (2) Septic shock Current Visit: Yes Status: Acute Suspected sources include HCAP vs. UTI vs. pressure ulcers. Given recent abd CT finding of emphysematous cystitis, this is probably believed to be the source of the patient's sepsis. Lactic acid has been improving from 1.8 down to 0.9 today. Patient extubated. Was on 1 mcg Levophed, but currently on hold. BP currently 97/44. Blood cultures positive for E. Coli. Negative for Legionella. Urine culture positive for E. coli ESBL. On vancomycin day 4. Meropenem switched to ertapenem. - Continue ertapenem. - Continue vancomycin. - Infectious disease following. - No IVF due to CHF exacerbation. 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 Last two abdominal CTs from 09/01/17 and 09/21/17 both demonstrated gas within bladder wall. Patient has been seen by urology as outpatient but has missed multiple recent visits. Urine culture positive for E. coli. Currently being treated with Vancomycin (day 4) and Ertapenem (day 1). Current abdominal CT shows bladder within normal limits. - Continue to monitor renal function and avoid nephrotoxins. - Continue antibiotics. (4) UTI (urinary tract infection) Current Visit: Yes Status: Acute Urine culture positive for E. coli ESBL. - Per urology: Patient well-known to urology service for recurrent urinary tract infections. No further treatment at this time. Only treat symptomatically infections. - continue ertapenem.. - Infecious disease following. 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 Patient did undergo greenlight surgery in past Dr. Lara. We will continue to follow up patient in hospital. (6) HCAP (healthcare-associated pneumonia) Current Visit: Yes Status: Acute Patient on vanc day 4 and ertapenem day 1. WBC count has decreased from 19.1 down to 11.3 today. Sputum culture prelim shows trace gram positive cocci. Blood cultures positive for E. coli. - Continue vancomycin. - Continue ertapenem. . (7) CHF exacerbation Current Visit: Yes Status: Acute Patient has same b/l pedal pitting edema compared to yesterday. + 1550 fluid balance. Lasix was originally put on hold. Last echo was on 07/16 with EF of 45% . Echocardiogram on 10/04/17 shows LVEF of 50-55%. - Continue lasix IV 40 mg BID. - Monitor I & O's. Qualifiers: Heart failure type: systolic Qualified Code(s): I50.23 - Acute on chronic systolic (congestive) heart failure (8) Elevated troponin Current Visit: No Status: Acute Tropnin levels 0.33, 0.38, and 0.50. Likely secondary to demand ischemia. (9) Anemia Current Visit: No Status: Acute Hgb stable at 9.5. Likely secondary to chronic disease. Qualifiers: Anemia type: unspecified type Qualified Code(s): D64.9 - Anemia, unspecified (10) Diabetes mellitus Current Visit: No Status: Chronic Glucose of 173. - Continue insulin sliding scale. Qualifiers: Diabetes mellitus type: type 2 Diabetes mellitus snf insulin use: without snf use Diabetes mellitus complication status: with kidney complications Diabetes mellitus complication detail: with chronic kidney disease Chronic kidney disease stage: stage 3 (moderate) Qualified Code(s): E11.22 - Type 2 diabetes mellitus with diabetic chronic kidney disease; N18.3 - Chronic kidney disease, stage 3 (moderate) (11) CKD (chronic kidney disease) Current Visit: No Status: Chronic Creatinine baseline from 1.5-1.6. Current creatinine at 1.63 Qualifiers: Chronic kidney disease stage: stage 3 (moderate) Qualified Code(s): N18.3 - Chronic kidney disease, stage 3 (moderate) (12) History of DVT (deep vein thrombosis) Current Visit: Yes Status: Acute Eliquis on hold. Will restart pending results of swallow eval. (13) Pressure ulcer of coccygeal region Current Visit: No Status: Acute Per ID, cont with antibiotics. Qualifiers: Pressure ulcer stage: unstageable Qualified Code(s): L89.150 - Pressure ulcer of sacral region, unstageable (14) Pressure ulcer of ankle, right, unstageable Current Visit: No Status: Acute See plan above. (15) DVT prophylaxis Current Visit: No Status: Acute Heparin 5000 U SQ BID. Subjective Principal diagnosis: Septic shock, Acue respiratory failure Interval history: Patient denies any chest pain, SOB, nausea, vomiting, fever, chills, or abdominal pain. he admits to some minor R mid-thoracic back pain. Objective PUL Vital signs: Last Vital Signs Temp 98.2 F 10/06/17 07:29 Pulse 90 10/06/17 08:00 Resp 17 10/06/17 08:40 BP 97/88 10/06/17 08:00 Pulse Ox 94 10/06/17 08:40 General appearance: no acute distress, alert (A&Ox3. ), other (Extubated. ) Eyes: nonicteric ENT: oropharynx moist Neck: supple Effort: normal Auscultation: bilateral: clear (Imrpoved from yesterday. ) Percussion: bilateral: not dull Tactile fremitus: bilateral: normal Cardiovascular: irregular rhythm Gastrointestinal: hypoactive bowel sounds, soft, non-tender, non-distended Integumentary: decubitus ulcer (Cocyx. Calcaneal pressure ulcers b/l. R worse than L. ) Musculoskeletal: no deformities normal mental status mood appropriate, affect normal Ventilator Settings Ventilator Settings: Ventilator Settings, Last 8 Hours Ventilator Tidal Volume 550 Setting Ventilator Tidal Volume 550 Setting Ventilator Tidal Volume 550 Setting Ventilator Tidal Volume 550 Setting Ventilator Tidal Volume 550 Setting Ventilator Tidal Volume 550 Setting Ventilator Tidal Volume 550 Setting Ventilator Tidal Volume 550 Setting Ventilator Tidal Volume 550 Setting Ventilator Tidal Volume 550 Setting Ventilator Respiratory Rate 14 Setting Ventilator Respiratory Rate 14 Setting Ventilator Respiratory Rate 14 Setting Ventilator Respiratory Rate 14 Setting Ventilator Respiratory Rate 14 Setting Ventilator Respiratory Rate 14 Setting Ventilator Respiratory Rate 14 Setting Ventilator Respiratory Rate 14 Setting Ventilator Respiratory Rate 14 Setting Ventilator Respiratory Rate 14 Setting Actual Respiratory Rate 14 Actual Respiratory Rate 14 Actual Respiratory Rate 15 Actual Respiratory Rate 14 Actual Respiratory Rate 14 Actual Respiratory Rate 15 Actual Respiratory Rate 16 Actual Respiratory Rate 15 Actual Respiratory Rate 20 Actual Respiratory Rate 16 Positive End Expiratory 5 Pressure Positive End Expiratory 5 Pressure Positive End Expiratory 5 Pressure Positive End Expiratory 5 Pressure Positive End Expiratory 5 Pressure Positive End Expiratory 5 Pressure Positive End Expiratory 5 Pressure Positive End Expiratory 5 Pressure Positive End Expiratory 5 Pressure Positive End Expiratory 5 Pressure Positive End Expiratory 5 Pressure Peak Inspiratory Airway 10 Pressure Peak Inspiratory Airway 17 Pressure Peak Inspiratory Airway 16 Pressure Peak Inspiratory Airway 19 Pressure Peak Inspiratory Airway 19 Pressure Peak Inspiratory Airway 18 Pressure Peak Inspiratory Airway 21 Pressure Peak Inspiratory Airway 16 Pressure Peak Inspiratory Airway 19 Pressure Peak Inspiratory Airway 19 Pressure Results - Laboratory Findings CBC and BMP: 10/06/17 04:50 10/06/17 04:50 ABG ABG pH 7.40 pH Units (7.32-7.45) 10/06/17 04:56 ABG pCO2 43 mmHg (35-45) 10/06/17 04:56 ABG pO2 68 mmHg (85-104) L 10/06/17 04:56 ABG O2 Saturation 93 % (95-98) L 10/06/17 04:56 PT/INR, D-dimer PT 17.9 Seconds (9.4-12.1) H 10/03/17 19:14 Abnormal lab findings: Abnormal lab results WBC 11.3 K/mcL (4.3-11.1) H 10/06/17 04:50 RBC 3.10 M/mcL (4.19-5.50) L 10/06/17 04:50 Hgb 9.5 g/dL (12.9-16.9) L 10/06/17 04:50 Hct 29.3 % (37.5-50.1) L 10/06/17 04:50 RDW 14.6 % (11.5-14.5) H 10/06/17 04:50 Plt Count 139 K/mcL (140-400) L 10/06/17 04:50 Neutrophils # 10.2 K/mcL (1.6-8.9) H 10/06/17 04:50 Lymphocytes # 0.4 K/mcL (0.6-4.6) L 10/06/17 04:50 Toxic Granulation Present (Not Present) A 10/05/17 03:50 Dohle Bodies Present (Not Present) A 10/03/17 19:14 Polychromasia 1+ (Not Present) A 10/03/17 19:14 ESR 93 mm/hr (0-10) H 10/04/17 14:44 PT 17.9 Seconds (9.4-12.1) H 10/03/17 19:14 ABG pO2 68 mmHg (85-104) L 10/06/17 04:56 ABG Total CO2 27 mEq/L (20-26) H 10/06/17 04:56 ABG O2 Saturation 93 % (95-98) L 10/06/17 04:56 Sodium 131 mEq/L (136-145) L 10/06/17 04:50 BUN 68 mg/dL (8-23) H 10/06/17 04:50 Creatinine 1.63 mg/dL (0.70-1.30) H 10/06/17 04:50 Est GFR ( Amer) 49 (> 60) L 10/06/17 04:50 Est GFR (Non-Af Amer) 40 (> 60) L 10/06/17 04:50 BUN/Creatinine Ratio 42 (6-26) H 10/06/17 04:50 Glucose 173 mg/dL (70-105) H 10/06/17 04:50 POC Glucose 148 mg/dL (70-99) H 10/06/17 07:15 Calcium 7.9 mg/dL (8.6-10.3) L 10/06/17 04:50 Venous Ioniz Calcium 1.07 mmol/L (1.15-1.35) L 10/06/17 05:18 Phosphorus 4.7 mg/dL (2.7-4.5) H 10/06/17 04:50 Iron < 10 mcg/dL (65-175) L 10/04/17 00:30 Transferrin 86 mg/dL (203-362) L 10/04/17 00:30 Ferritin 1262 ng/mL (20-250) H 10/04/17 00:30 AST 41 Units/L (13-39) H 10/03/17 19:14 Alkaline Phosphatase 271 Units/L (34-104) H 10/03/17 19:14 Troponin I 0.50 ng/mL (< 0.04) H* 10/04/17 05:50 C-Reactive Protein 249 mg/L (Less than 10) H 10/04/17 14:44 B-Natriuretic Peptide 1124 pg/mL (Less than 100) H 10/03/17 19:14 Serum Total Protein 4.4 g/dL (6.4-8.9) L 10/03/17 19:14 Albumin 1.9 g/dL (3.5-5.7) L 10/03/17 19:14 Albumin/Globulin Ratio 0.8 (1.1-2.2) L 10/03/17 19:14 Urine Clarity Cloudy (Clear) A 10/03/17 18:11 Urine Protein 30 mg/dL (Neg-Trace) H 10/03/17 18:11 Urine Blood Large (Negative) H 10/03/17 18:11 Ur Leukocyte Esterase Large (Negative) H 10/03/17 18:11 Urine Microscopic RBC 15-30 per hpf (0-3) H 10/03/17 18:11 Urine Microscopic WBC 30-50 per hpf (0-3) H 10/03/17 18:11 Urine Bacteria Many per hpf (None-Few) H 10/03/17 18:11 Ur Culture Indicated? YES (NO) A 10/03/17 18:11 Nasal Screen MRSA (PCR) Positive (Negative) A 10/05/17 18:36 Vancomycin Trough 20 mcg/mL (5-10) H 10/05/17 18:13 Enterobacteriac sp PCR DETECTED (Not Detect) A 10/03/17 19:14 E. coli (PCR) DETECTED (Not Detect) A 10/03/17 19:14 Entero/Rhino (PCR) DETECTED (Not Detect) A 10/04/17 15:40 - Microbiology Findings Microbiology Findings: Microbiology, Last 48 Hours 10/04/17 16:00 Sputum Culture - Preliminary Sputum 10/04/17 10:05 Legionella Antigen - Final Urine,Clean Catch Streptococcus pneumoniae Antigen (M - Final - Clinical Findings Intake & Output: Intake & Output 10/05/17 10/06/17 10/06/17 23:59 07:59 15:59 Intake Total 920 / 920 733 / 733 479 / 479 Output Total 550 / 550 350 / 350 Balance 370 / 370 383 / 383 479 / 479 Weight 126.3 kg 126.3 kg
--- NOTE | 2017-10-06 10:22 | Infectious Disease Progress No ---
Date of Encounter: 10/06/17 Time of Encounter: 09:30 - Assessment and Plan (1) Septic shock Current Visit: Yes Status: Acute Patient had 3 of 4 SIRS criteria on presentation with leukocytosis, tachypnea, and tachycardia Lactic acid was 3.7 upon presentation, but since normalized Source and causative organism E. Coli CRP 249, ESR 93 RIP positive for enterovirus/rhinovirus Patient off pressor and ventilator support 1 blood culture collected at ED preliminarily growing E. Coli (2) Bacteremia due to Escherichia coli Current Visit: Yes Status: Acute Non contrast CT of ab/pel demonstrates gas within bladder Causative organism E. Coli He did have previous urine cultures positive for E. Coli ESBL on 09/01/17 and Patient has been seen by urology as outpatient but has missed multiple recent visits Currently being treated with Vancomycin (day 4) and Ertapenem (day 1) Was initially on Meropenem which was switched to Ertapenem 10/06 Continue Vancomycin as MRSA screen positive He did receive 2 doses of Zosyn since admission Urine culture did grow out E. 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 Plan as above with antibiotic regimen (4) Pressure ulcer of coccygeal region Current Visit: No Status: Acute Unstageable sacral ulcer currently being follow by wound care Unable to rule out if they are causing osteomyelitis Continue with current antibiotic regimen as above Qualifiers: Qualified Code(s): L89.150 - Pressure ulcer of sacral region, unstageable (5) Pressure ulcer of ankle, right, unstageable Current Visit: No Status: Acute Plan as above (6) Leukocytosis Current Visit: Yes Status: Acute White count initially 14 upon arrival but increased to 33 This morning down to 11 He did receive 100 mg of Solu-cortef in the ED Currently on antibiotic regimen as above Continue to trend CBC Qualifiers: Qualified Code(s): D72.829 - Elevated white blood cell count, unspecified (7) Diabetes mellitus Current Visit: No Status: Chronic Patient's accucheck upon arrival to ED was 130 Doubt hypoglycemia was cause of his altered mental status SSI and accuchecks per primary team Qualifiers: Qualified Code(s): E11.22 - Type 2 diabetes mellitus with diabetic chronic kidney disease; N18.3 - Chronic kidney disease, stage 3 (moderate) (8) CKD (chronic kidney disease) Current Visit: No Status: Chronic Qualifiers: Qualified Code(s): N18.3 - Chronic kidney disease, stage 3 (moderate) (9) Hypertension Current Visit: No Status: Chronic Qualifiers: Qualified Code(s): I10 - Essential (primary) hypertension (10) History of DVT (deep vein thrombosis) Current Visit: Yes Status: Acute (11) Systolic heart failure Current Visit: Yes Status: Chronic Qualifiers: Qualified Code(s): I50.23 - Acute on chronic systolic (congestive) heart failure - Subjective Interval history: Pt seen and examined. He is awake and alert after extubation yesterday and states he is feeling well overall. Denies any shortness of breath but states he has a non-productive cough. Denies chest pain, fever, nausea, vomiting, diarrhea. Infect Dis PN-Objective Data - Labs CBC & Chem 7: 10/09/17 03:07 10/09/17 03:07 Labs: Laboratory Results - last 24 hr 10/05/17 10/05/17 10/05/17 11:38 16:40 16:41 WBC RBC Hgb Hct MCV MCH MCHC RDW Plt Count MPV Immature Gran % Seg Neutrophils % Lymphocytes % Monocytes % Eosinophils % Basophils % Neutrophils # Lymphocytes # Monocytes # Eosinophils # Basophils # Platelet Estimate ABG pH ABG pCO2 ABG pO2 ABG HCO3 ABG Total CO2 ABG O2 Saturation ABG Base Excess Adam Test Respiration Rate O2 Delivery Device Blood Gas Modality Inspired O2 Tidal Volume PEEP Sodium Potassium Chloride Carbon Dioxide BUN Creatinine Est GFR ( Amer) Est GFR (Non-Af Amer) BUN/Creatinine Ratio Glucose POC Glucose 217 H 188 H Calculated Osmolality Lactic Acid Calcium Venous Ioniz Calcium Phosphorus Magnesium 2.3 Nasal Screen MRSA (PCR) Vancomycin Trough 10/05/17 10/05/17 10/05/17 16:52 18:13 18:36 WBC RBC Hgb Hct MCV MCH MCHC RDW Plt Count MPV Immature Gran % Seg Neutrophils % Lymphocytes % Monocytes % Eosinophils % Basophils % Neutrophils # Lymphocytes # Monocytes # Eosinophils # Basophils # Platelet Estimate ABG pH ABG pCO2 ABG pO2 ABG HCO3 ABG Total CO2 ABG O2 Saturation ABG Base Excess Adam Test Respiration Rate O2 Delivery Device Blood Gas Modality Inspired O2 Tidal Volume PEEP Sodium Potassium Chloride Carbon Dioxide BUN Creatinine Est GFR ( Amer) Est GFR (Non-Af Amer) BUN/Creatinine Ratio Glucose POC Glucose Calculated Osmolality Lactic Acid Calcium Venous Ioniz Calcium 1.06 L Phosphorus Magnesium Nasal Screen MRSA (PCR) Positive A Vancomycin Trough 20 H 10/05/17 10/05/17 10/06/17 19:46 23:31 04:41 WBC RBC Hgb Hct MCV MCH MCHC RDW Plt Count MPV Immature Gran % Seg Neutrophils % Lymphocytes % Monocytes % Eosinophils % Basophils % Neutrophils # Lymphocytes # Monocytes # Eosinophils # Basophils # Platelet Estimate ABG pH ABG pCO2 ABG pO2 ABG HCO3 ABG Total CO2 ABG O2 Saturation ABG Base Excess Adam Test Respiration Rate O2 Delivery Device Blood Gas Modality Inspired O2 Tidal Volume PEEP Sodium Potassium Chloride Carbon Dioxide BUN Creatinine Est GFR ( Amer) Est GFR (Non-Af Amer) BUN/Creatinine Ratio Glucose POC Glucose 164 H 111 H 154 H Calculated Osmolality Lactic Acid Calcium Venous Ioniz Calcium Phosphorus Magnesium Nasal Screen MRSA (PCR) Vancomycin Trough 10/06/17 10/06/17 10/06/17 04:50 04:50 04:50 WBC 11.3 H RBC 3.10 L Hgb 9.5 L Hct 29.3 L MCV 94.5 MCH 30.6 MCHC 32.4 RDW 14.6 H Plt Count 139 L MPV 9.5 Immature Gran % 0.7 Seg Neutrophils % 90.1 Lymphocytes % 3.1 Monocytes % 4.3 Eosinophils % 1.7 Basophils % 0.1 Neutrophils # 10.2 H Lymphocytes # 0.4 L Monocytes # 0.5 Eosinophils # 0.2 Basophils # 0.0 Platelet Estimate Normal ABG pH ABG pCO2 ABG pO2 ABG HCO3 ABG Total CO2 ABG O2 Saturation ABG Base Excess Adam Test Respiration Rate O2 Delivery Device Blood Gas Modality Inspired O2 Tidal Volume PEEP Sodium 131 L Potassium 4.3 Chloride 98 Carbon Dioxide 24 BUN 68 H Creatinine 1.63 H Est GFR ( Amer) 49 L Est GFR (Non-Af Amer) 40 L BUN/Creatinine Ratio 42 H Glucose 173 H POC Glucose Calculated Osmolality 296 Lactic Acid 0.9 Calcium 7.9 L Venous Ioniz Calcium Phosphorus Magnesium Nasal Screen MRSA (PCR) Vancomycin Trough 10/06/17 10/06/17 10/06/17 04:50 04:56 05:18 WBC RBC Hgb Hct MCV MCH MCHC RDW Plt Count MPV Immature Gran % Seg Neutrophils % Lymphocytes % Monocytes % Eosinophils % Basophils % Neutrophils # Lymphocytes # Monocytes # Eosinophils # Basophils # Platelet Estimate ABG pH 7.40 ABG pCO2 43 ABG pO2 68 L ABG HCO3 26 ABG Total CO2 27 H ABG O2 Saturation 93 L ABG Base Excess 1 Adam Test N/A Respiration Rate 14 O2 Delivery Device Adult Vent Blood Gas Modality PRVC Inspired O2 30.0 Tidal Volume 550 PEEP 5 Sodium Potassium Chloride Carbon Dioxide BUN Creatinine Est GFR ( Amer) Est GFR (Non-Af Amer) BUN/Creatinine Ratio Glucose POC Glucose Calculated Osmolality Lactic Acid Calcium Venous Ioniz Calcium 1.07 L Phosphorus 4.7 H Magnesium 2.3 Nasal Screen MRSA (PCR) Vancomycin Trough 10/06/17 07:15 WBC RBC Hgb Hct MCV MCH MCHC RDW Plt Count MPV Immature Gran % Seg Neutrophils % Lymphocytes % Monocytes % Eosinophils % Basophils % Neutrophils # Lymphocytes # Monocytes # Eosinophils # Basophils # Platelet Estimate ABG pH ABG pCO2 ABG pO2 ABG HCO3 ABG Total CO2 ABG O2 Saturation ABG Base Excess Adam Test Respiration Rate O2 Delivery Device Blood Gas Modality Inspired O2 Tidal Volume PEEP Sodium Potassium Chloride Carbon Dioxide BUN Creatinine Est GFR ( Amer) Est GFR (Non-Af Amer) BUN/Creatinine Ratio Glucose POC Glucose 148 H Calculated Osmolality Lactic Acid Calcium Venous Ioniz Calcium Phosphorus Magnesium Nasal Screen MRSA (PCR) Vancomycin Trough Cultures: Cultures 10/04/17 16:00 Sputum Culture - Preliminary Sputum 10/04/17 10:05 Legionella Antigen - Final Urine,Clean Catch Streptococcus pneumoniae Antigen (M - Final Serology 10/05/17 10/04/17 Range/Units 18:36 15:40 Nasal Screen MRSA (PCR) Positive A (Negative) Chlamy pneumoniae PCR Not Detected (Not Detect) Adenovirus (PCR) Not Detected (Not Detect) B. pertussis DNA (PCR) Not Detected (Not Detect) B.parapertussis DNA PCR Not Detected (Not Detect) Coronavirus OC43 (PCR) Not Detected (Not Detect) Coronavirus HKU1 (PCR) Not Detected (Not Detect) Coronavirus 229E (PCR) Not Detected (Not Detect) Coronavirus NL63 (PCR) Not Detected (Not Detect) Human Metapneumovir PCR Not Detected (Not Detect) Influenza A (H1) PCR Not Detected (Not Detect) Influenza A (H3) PCR Not Detected (Not Detect) Influenza Type B (PCR) Not Detected (Not Detect) M.pneumoniae DNA (PCR) Not Detected (Not Detect) Parainfluenza 1 (PCR) Not Detected (Not Detect) Parainfluenza 2 (PCR) Not Detected (Not Detect) Parainfluenza 3 (PCR) Not Detected (Not Detect) Parainfluenza 4 (PCR) Not Detected (Not Detect) RSV (PCR) Not Detected (Not Detect) Entero/Rhino (PCR) DETECTED A (Not Detect) - Impressions Impressions KUB X-Ray 10/03/17 22:30 IMPRESSION: The enteric tube tip is in the proximal stomach and the side port is at the level of the gastroesophageal junction. Further advancement of the tube is recommended. D/ / 10/03/2017 22:57:25 Kvng Porras MD / enrique Interpreting Provider: Kvng oPrras MD Echocardiogram Limited Views 10/03/17 23:17 Impressions: LVEF 50-55%. Mild concentric left ventricular hypertrophy. Normal LV chamber size. Atypical septal motion consistent with paced rhythm. Normal right ventricular structure and function. Left Ventricular Wall Motion: Rest Echo Findings All wall segments showed normal motion. Findings: Study Quality * Technically adequate exam. ECG Findings * Tachycardia noted. Paced rhythm. Left Ventricle * LVEF 50-55%. * Normal LV chamber size. * Mild concentric left ventricular hypertrophy. * Atypical septal motion consistent with paced rhythm. Right Ventricle * Normal right ventricular structure and function. Left Atrium * Severely dilated left atrium. Right Atrium * Moderately dilated right atrium. Pericardium * The pericardium appears normal. Device lead * A device lead was visualized in the right atrium and right ventricle. Exam - Constitutional Vitals: Temp Pulse Resp BP Pulse Ox 98.2 F 90 17 97/88 94 10/06/17 07:29 10/06/17 08:00 10/06/17 08:40 10/06/17 08:00 10/06/17 08:40 General appearance: cooperative, no acute distress - Head Head exam: Present: atraumatic, normocephalic - Respiratory Respiratory exam: Present: wheezes (left base). Absent: accessory muscle use, respiratory distress, stridor - Cardiovascular Cardiovascular exam: Present: tachycardia. Absent: irregular rhythm, systolic murmur - GI/Abdominal GI/Abdominal exam: Present: normal bowel sounds, soft. Absent: tenderness - Extremities Exam Extremities exam: Present: pedal edema Consult Discharge Plan - Plan Referrals: Radha Jones, [employer] [Primary Care Provider] - - Attending Attestation I examined this patient and my medical decision-making was reviewed with the Resident Physician. I agree with the documented findings, disposition and treatment plan as described except to the extent set forth below.
--- NOTE | 2017-10-06 10:40 | Palliative Progress Note ---
<Jake Simon - Last Filed: 10/06/17 10:38> Date of Encounter: 10/06/17 Time of Encounter: 09:15 - Assessment and plan (1) Goals of care, counseling/discussion Current Visit: Yes Status: Acute Assessment and plan: The patient is now s/p extubation this morning without complication. He is no longer on any pressor support. He no speaks without obstruction, and confirms that his treatment plan has been to his preference and expectation. He affirms that his code status is appropriate, and that he continues to wish for full resuscitative measures. He further says that he is comfortable overall, and that he has no acute complaints in regard to pain or discomfort. Ultimately, it appears that he is very knowledgeable of his health status, and they he remains confident in the decisions he's made toward it. We feel that his currently plan and goals of therapy are appropriate and well justified. longterm goal of therapy is to discharge home. (2) Pain Current Visit: Yes Status: Acute Assessment and plan: Patient indicates that he has some pain in his back which is chronic and is not completely alleviated by his fentanyl drip. (3) Acute respiratory failure with hypoxia Current Visit: Yes Status: Acute Assessment and plan: S/p extubation without complication (4) Septic shock Current Visit: Yes Status: Acute Assessment and plan: Improved, off pressors without immediate complication. Management per ICU (5) Systolic heart failure Current Visit: Yes Status: Chronic Assessment and plan: Remains fluid overloaded. Management per primary team. Qualifiers: Heart failure chronicity: acute on chronic Qualified Code(s): I50.23 - Acute on chronic systolic (congestive) heart failure - Time Spent With Patient Total time spent is greater than 50% in coordination of care (as documented) at patient's floor/unit and/or counseling patient: - Subjective Interval history: S/p extubation, patient is seen and examined at bedside. He is comfortable at this time, and highly alert. - Constitutional Vitals: Abnormal lab results WBC 11.3 K/mcL (4.3-11.1) H 10/06/17 04:50 RBC 3.10 M/mcL (4.19-5.50) L 10/06/17 04:50 Hgb 9.5 g/dL (12.9-16.9) L 10/06/17 04:50 Hct 29.3 % (37.5-50.1) L 10/06/17 04:50 RDW 14.6 % (11.5-14.5) H 10/06/17 04:50 Plt Count 139 K/mcL (140-400) L 10/06/17 04:50 Neutrophils # 10.2 K/mcL (1.6-8.9) H 10/06/17 04:50 Lymphocytes # 0.4 K/mcL (0.6-4.6) L 10/06/17 04:50 Toxic Granulation Present (Not Present) A 10/05/17 03:50 Dohle Bodies Present (Not Present) A 10/03/17 19:14 Polychromasia 1+ (Not Present) A 10/03/17 19:14 ESR 93 mm/hr (0-10) H 10/04/17 14:44 PT 17.9 Seconds (9.4-12.1) H 10/03/17 19:14 ABG pO2 68 mmHg (85-104) L 10/06/17 04:56 ABG Total CO2 27 mEq/L (20-26) H 10/06/17 04:56 ABG O2 Saturation 93 % (95-98) L 10/06/17 04:56 Sodium 131 mEq/L (136-145) L 10/06/17 04:50 BUN 68 mg/dL (8-23) H 10/06/17 04:50 Creatinine 1.63 mg/dL (0.70-1.30) H 10/06/17 04:50 Est GFR ( Amer) 49 (> 60) L 10/06/17 04:50 Est GFR (Non-Af Amer) 40 (> 60) L 10/06/17 04:50 BUN/Creatinine Ratio 42 (6-26) H 10/06/17 04:50 Glucose 173 mg/dL (70-105) H 10/06/17 04:50 POC Glucose 148 mg/dL (70-99) H 10/06/17 07:15 Calcium 7.9 mg/dL (8.6-10.3) L 10/06/17 04:50 Venous Ioniz Calcium 1.07 mmol/L (1.15-1.35) L 10/06/17 05:18 Phosphorus 4.7 mg/dL (2.7-4.5) H 10/06/17 04:50 Iron < 10 mcg/dL (65-175) L 10/04/17 00:30 Transferrin 86 mg/dL (203-362) L 10/04/17 00:30 Ferritin 1262 ng/mL (20-250) H 10/04/17 00:30 AST 41 Units/L (13-39) H 10/03/17 19:14 Alkaline Phosphatase 271 Units/L (34-104) H 10/03/17 19:14 Troponin I 0.50 ng/mL (< 0.04) H* 10/04/17 05:50 C-Reactive Protein 249 mg/L (Less than 10) H 10/04/17 14:44 B-Natriuretic Peptide 1124 pg/mL (Less than 100) H 10/03/17 19:14 Serum Total Protein 4.4 g/dL (6.4-8.9) L 10/03/17 19:14 Albumin 1.9 g/dL (3.5-5.7) L 10/03/17 19:14 Albumin/Globulin Ratio 0.8 (1.1-2.2) L 10/03/17 19:14 Urine Clarity Cloudy (Clear) A 10/03/17 18:11 Urine Protein 30 mg/dL (Neg-Trace) H 10/03/17 18:11 Urine Blood Large (Negative) H 10/03/17 18:11 Ur Leukocyte Esterase Large (Negative) H 10/03/17 18:11 Urine Microscopic RBC 15-30 per hpf (0-3) H 10/03/17 18:11 Urine Microscopic WBC 30-50 per hpf (0-3) H 10/03/17 18:11 Urine Bacteria Many per hpf (None-Few) H 10/03/17 18:11 Ur Culture Indicated? YES (NO) A 10/03/17 18:11 Nasal Screen MRSA (PCR) Positive (Negative) A 10/05/17 18:36 Vancomycin Trough 20 mcg/mL (5-10) H 10/05/17 18:13 Enterobacteriac sp PCR DETECTED (Not Detect) A 10/03/17 19:14 E. coli (PCR) DETECTED (Not Detect) A 10/03/17 19:14 Entero/Rhino (PCR) DETECTED (Not Detect) A 10/04/17 15:40 Exam: Gen: Vitals noted. No acute distress. HEENT: Normocephalic, atraumatic. Mucous membranes appear moist. Cardiac: RRR, no murmur, +S1/S2 Pulmonary: CTA bilaterally, no wheezes, rales or rhonchi, equal chest expansion however seemingly diminished b/l. Abdomen: soft, nontender, BS noted, no guarding. Suspect umbilical hernia which is reducible MSK: ROM intact, no joint swelling noted Extremities: 2+ b/l LE edema, significantly improved Neuro: Alert and oriented, moves all extremities, no focal deficits Psych: Appropriate mood and behavior Palliative Quality Palliative Quality: Screen for Code Status: Yes, Screen for Goals of Care: Yes, Screen for Pain: Yes, If Pain Regimen Started, Initiate Bowel Regimen: Yes, Screen for Nausea/Vomitting: Yes Code Status: 10/03/17 23:11 Resuscitation Status: Active [RES] Routine Comment: Resuscitation Status: Full Code - Labs CBC & Chem 7: 10/06/17 04:50 10/06/17 04:50 Labs: Laboratory Results - last 24 hr 10/05/17 10/05/17 10/05/17 11:38 16:40 16:41 WBC RBC Hgb Hct MCV MCH MCHC RDW Plt Count MPV Immature Gran % Seg Neutrophils % Lymphocytes % Monocytes % Eosinophils % Basophils % Neutrophils # Lymphocytes # Monocytes # Eosinophils # Basophils # Platelet Estimate ABG pH ABG pCO2 ABG pO2 ABG HCO3 ABG Total CO2 ABG O2 Saturation ABG Base Excess Adam Test Respiration Rate O2 Delivery Device Blood Gas Modality Inspired O2 Tidal Volume PEEP Sodium Potassium Chloride Carbon Dioxide BUN Creatinine Est GFR ( Amer) Est GFR (Non-Af Amer) BUN/Creatinine Ratio Glucose POC Glucose 217 H 188 H Calculated Osmolality Lactic Acid Calcium Venous Ioniz Calcium Phosphorus Magnesium 2.3 Nasal Screen MRSA (PCR) Vancomycin Trough 10/05/17 10/05/17 10/05/17 16:52 18:13 18:36 WBC RBC Hgb Hct MCV MCH MCHC RDW Plt Count MPV Immature Gran % Seg Neutrophils % Lymphocytes % Monocytes % Eosinophils % Basophils % Neutrophils # Lymphocytes # Monocytes # Eosinophils # Basophils # Platelet Estimate ABG pH ABG pCO2 ABG pO2 ABG HCO3 ABG Total CO2 ABG O2 Saturation ABG Base Excess Adam Test Respiration Rate O2 Delivery Device Blood Gas Modality Inspired O2 Tidal Volume PEEP Sodium Potassium Chloride Carbon Dioxide BUN Creatinine Est GFR ( Amer) Est GFR (Non-Af Amer) BUN/Creatinine Ratio Glucose POC Glucose Calculated Osmolality Lactic Acid Calcium Venous Ioniz Calcium 1.06 L Phosphorus Magnesium Nasal Screen MRSA (PCR) Positive A Vancomycin Trough 20 H 10/05/17 10/05/17 10/06/17 19:46 23:31 04:41 WBC RBC Hgb Hct MCV MCH MCHC RDW Plt Count MPV Immature Gran % Seg Neutrophils % Lymphocytes % Monocytes % Eosinophils % Basophils % Neutrophils # Lymphocytes # Monocytes # Eosinophils # Basophils # Platelet Estimate ABG pH ABG pCO2 ABG pO2 ABG HCO3 ABG Total CO2 ABG O2 Saturation ABG Base Excess Adam Test Respiration Rate O2 Delivery Device Blood Gas Modality Inspired O2 Tidal Volume PEEP Sodium Potassium Chloride Carbon Dioxide BUN Creatinine Est GFR ( Amer) Est GFR (Non-Af Amer) BUN/Creatinine Ratio Glucose POC Glucose 164 H 111 H 154 H Calculated Osmolality Lactic Acid Calcium Venous Ioniz Calcium Phosphorus Magnesium Nasal Screen MRSA (PCR) Vancomycin Trough 10/06/17 10/06/17 10/06/17 04:50 04:50 04:50 WBC 11.3 H RBC 3.10 L Hgb 9.5 L Hct 29.3 L MCV 94.5 MCH 30.6 MCHC 32.4 RDW 14.6 H Plt Count 139 L MPV 9.5 Immature Gran % 0.7 Seg Neutrophils % 90.1 Lymphocytes % 3.1 Monocytes % 4.3 Eosinophils % 1.7 Basophils % 0.1 Neutrophils # 10.2 H Lymphocytes # 0.4 L Monocytes # 0.5 Eosinophils # 0.2 Basophils # 0.0 Platelet Estimate Normal ABG pH ABG pCO2 ABG pO2 ABG HCO3 ABG Total CO2 ABG O2 Saturation ABG Base Excess Adam Test Respiration Rate O2 Delivery Device Blood Gas Modality Inspired O2 Tidal Volume PEEP Sodium 131 L Potassium 4.3 Chloride 98 Carbon Dioxide 24 BUN 68 H Creatinine 1.63 H Est GFR ( Amer) 49 L Est GFR (Non-Af Amer) 40 L BUN/Creatinine Ratio 42 H Glucose 173 H POC Glucose Calculated Osmolality 296 Lactic Acid 0.9 Calcium 7.9 L Venous Ioniz Calcium Phosphorus Magnesium Nasal Screen MRSA (PCR) Vancomycin Trough 10/06/17 10/06/1710/06/18 04:50 04:56 05:18 WBC RBC Hgb Hct MCV MCH MCHC RDW Plt Count MPV Immature Gran % Seg Neutrophils % Lymphocytes % Monocytes % Eosinophils % Basophils % Neutrophils # Lymphocytes # Monocytes # Eosinophils # Basophils # Platelet Estimate ABG pH 7.40 ABG pCO2 43 ABG pO2 68 L ABG HCO3 26 ABG Total CO2 27 H ABG O2 Saturation 93 L ABG Base Excess 1 Adam Test N/A Respiration Rate 14 O2 Delivery Device Adult Vent Blood Gas Modality PRVC Inspired O2 30.0 Tidal Volume 550 PEEP 5 Sodium Potassium Chloride Carbon Dioxide BUN Creatinine Est GFR ( Amer) Est GFR (Non-Af Amer) BUN/Creatinine Ratio Glucose POC Glucose Calculated Osmolality Lactic Acid Calcium Venous Ioniz Calcium 1.07 L Phosphorus 4.7 H Magnesium 2.3 Nasal Screen MRSA (PCR) Vancomycin Trough 10/06/17 07:15 WBC RBC Hgb Hct MCV MCH MCHC RDW Plt Count MPV Immature Gran % Seg Neutrophils % Lymphocytes % Monocytes % Eosinophils % Basophils % Neutrophils # Lymphocytes # Monocytes # Eosinophils # Basophils # Platelet Estimate ABG pH ABG pCO2 ABG pO2 ABG HCO3 ABG Total CO2 ABG O2 Saturation ABG Base Excess Adam Test Respiration Rate O2 Delivery Device Blood Gas Modality Inspired O2 Tidal Volume PEEP Sodium Potassium Chloride Carbon Dioxide BUN Creatinine Est GFR ( Amer) Est GFR (Non-Af Amer) BUN/Creatinine Ratio Glucose POC Glucose 148 H Calculated Osmolality Lactic Acid Calcium Venous Ioniz Calcium Phosphorus Magnesium Nasal Screen MRSA (PCR) Vancomycin Trough - Impressions Impressions KUB X-Ray 10/03/17 22:30 IMPRESSION: The enteric tube tip is in the proximal stomach and the side port is at the level of the gastroesophageal junction. Further advancement of the tube is recommended. D/ / 10/03/2017 22:57:25 Kvng Porras MD / bcarter Interpreting Provider: Kvng Porras MD Echocardiogram Limited Views 10/03/17 23:17 Impressions: LVEF 50-55%. Mild concentric left ventricular hypertrophy. Normal LV chamber size. Atypical septal motion consistent with paced rhythm. Normal right ventricular structure and function. Left Ventricular Wall Motion: Rest Echo Findings All wall segments showed normal motion. Findings: Study Quality * Technically adequate exam. ECG Findings * Tachycardia noted. Paced rhythm. Left Ventricle * LVEF 50-55%. * Normal LV chamber size. * Mild concentric left ventricular hypertrophy. * Atypical septal motion consistent with paced rhythm. Right Ventricle * Normal right ventricular structure and function. Left Atrium * Severely dilated left atrium. Right Atrium * Moderately dilated right atrium. Pericardium * The pericardium appears normal. Device lead * A device lead was visualized in the right atrium and right ventricle. - ABG Interpretation ABG results: ABG ABG pH 7.40 pH Units (7.32-7.45) 10/06/17 04:56 ABG pCO2 43 mmHg (35-45) 10/06/17 04:56 ABG pO2 68 mmHg (85-104) L 10/06/17 04:56 ABG O2 Saturation 93 % (95-98) L 10/06/17 04:56 PT/INR, D-dimer PT 17.9 Seconds (9.4-12.1) H 10/03/17 19:14 Consult Discharge Plan - Plan Referrals: Radha Jones, [employer] [Primary Care Provider] - <Antonio Rios - Last Filed: 10/06/17 10:48> Date of Encounter: 10/06/17 - Time Spent With Patient Total time spent is greater than 50% in coordination of care (as documented) at patient's floor/unit and/or counseling patient: - Constitutional Vitals: Abnormal lab results WBC 11.3 K/mcL (4.3-11.1) H 10/06/17 04:50 RBC 3.10 M/mcL (4.19-5.50) L 10/06/17 04:50 Hgb 9.5 g/dL (12.9-16.9) L 10/06/17 04:50 Hct 29.3 % (37.5-50.1) L 10/06/17 04:50 RDW 14.6 % (11.5-14.5) H 10/06/17 04:50 Plt Count 139 K/mcL (140-400) L 10/06/17 04:50 Neutrophils # 10.2 K/mcL (1.6-8.9) H 10/06/17 04:50 Lymphocytes # 0.4 K/mcL (0.6-4.6) L 10/06/17 04:50 Toxic Granulation Present (Not Present) A 10/05/17 03:50 Dohle Bodies Present (Not Present) A 10/03/17 19:14 Polychromasia 1+ (Not Present) A 10/03/17 19:14 ESR 93 mm/hr (0-10) H 10/04/17 14:44 PT 17.9 Seconds (9.4-12.1) H 10/03/17 19:14 ABG pO2 68 mmHg (85-104) L 10/06/17 04:56 ABG Total CO2 27 mEq/L (20-26) H 10/06/17 04:56 ABG O2 Saturation 93 % (95-98) L 10/06/17 04:56 Sodium 131 mEq/L (136-145) L 10/06/17 04:50 BUN 68 mg/dL (8-23) H 10/06/17 04:50 Creatinine 1.63 mg/dL (0.70-1.30) H 10/06/17 04:50 Est GFR ( Amer) 49 (> 60) L 10/06/17 04:50 Est GFR (Non-Af Amer) 40 (> 60) L 10/06/17 04:50 BUN/Creatinine Ratio 42 (6-26) H 10/06/17 04:50 Glucose 173 mg/dL (70-105) H 10/06/17 04:50 POC Glucose 148 mg/dL (70-99) H 10/06/17 07:15 Calcium 7.9 mg/dL (8.6-10.3) L 10/06/17 04:50 Venous Ioniz Calcium 1.07 mmol/L (1.15-1.35) L 10/06/17 05:18 Phosphorus 4.7 mg/dL (2.7-4.5) H 10/06/17 04:50 Iron < 10 mcg/dL (65-175) L 10/04/17 00:30 Transferrin 86 mg/dL (203-362) L 10/04/17 00:30 Ferritin 1262 ng/mL (20-250) H 10/04/17 00:30 AST 41 Units/L (13-39) H 10/03/17 19:14 Alkaline Phosphatase 271 Units/L (34-104) H 10/03/17 19:14 Troponin I 0.50 ng/mL (< 0.04) H* 10/04/17 05:50 C-Reactive Protein 249 mg/L (Less than 10) H 10/04/17 14:44 B-Natriuretic Peptide 1124 pg/mL (Less than 100) H 10/03/17 19:14 Serum Total Protein 4.4 g/dL (6.4-8.9) L 10/03/17 19:14 Albumin 1.9 g/dL (3.5-5.7) L 10/03/17 19:14 Albumin/Globulin Ratio 0.8 (1.1-2.2) L 10/03/17 19:14 Urine Clarity Cloudy (Clear) A 10/03/17 18:11 Urine Protein 30 mg/dL (Neg-Trace) H 10/03/17 18:11 Urine Blood Large (Negative) H 10/03/17 18:11 Ur Leukocyte Esterase Large (Negative) H 10/03/17 18:11 Urine Microscopic RBC 15-30 per hpf (0-3) H 10/03/17 18:11 Urine Microscopic WBC 30-50 per hpf (0-3) H 10/03/17 18:11 Urine Bacteria Many per hpf (None-Few) H 10/03/17 18:11 Ur Culture Indicated? YES (NO) A 10/03/17 18:11 Nasal Screen MRSA (PCR) Positive (Negative) A 10/05/17 18:36 Vancomycin Trough 20 mcg/mL (5-10) H 10/05/17 18:13 Enterobacteriac sp PCR DETECTED (Not Detect) A 10/03/17 19:14 E. coli (PCR) DETECTED (Not Detect) A 10/03/17 19:14 Entero/Rhino (PCR) DETECTED (Not Detect) A 10/04/17 15:40 - Attending Attestation I examined this patient and my medical decision-making was reviewed with the Resident Physician. I agree with the documented findings, disposition and treatment plan as described except to the extent set forth below. Palliative Quality Code Status: 10/03/17 23:11 Resuscitation Status: Active [RES] Routine Comment: Resuscitation Status: Full Code - Labs CBC & Chem 7: 10/06/17 04:50 06/08/18 04:50 Labs: Laboratory Results - last 24 hr 10/05/17 10/05/17 10/05/17 11:38 16:40 16:41 WBC RBC Hgb Hct MCV MCH MCHC RDW Plt Count MPV Immature Gran % Seg Neutrophils % Lymphocytes % Monocytes % Eosinophils % Basophils % Neutrophils # Lymphocytes # Monocytes # Eosinophils # Basophils # Platelet Estimate ABG pH ABG pCO2 ABG pO2 ABG HCO3 ABG Total CO2 ABG O2 Saturation ABG Base Excess Adam Test Respiration Rate O2 Delivery Device Blood Gas Modality Inspired O2 Tidal Volume PEEP Sodium Potassium Chloride Carbon Dioxide BUN Creatinine Est GFR ( Amer) Est GFR (Non-Af Amer) BUN/Creatinine Ratio Glucose POC Glucose 217 H 188 H Calculated Osmolality Lactic Acid Calcium Venous Ioniz Calcium Phosphorus Magnesium 2.3 Nasal Screen MRSA (PCR) Vancomycin Trough 10/05/17 10/05/17 10/05/17 16:52 18:13 18:36 WBC RBC Hgb Hct MCV MCH MCHC RDW Plt Count MPV Immature Gran % Seg Neutrophils % Lymphocytes % Monocytes % Eosinophils % Basophils % Neutrophils # Lymphocytes # Monocytes # Eosinophils # Basophils # Platelet Estimate ABG pH ABG pCO2 ABG pO2 ABG HCO3 ABG Total CO2 ABG O2 Saturation ABG Base Excess Adam Test Respiration Rate O2 Delivery Device Blood Gas Modality Inspired O2 Tidal Volume PEEP Sodium Potassium Chloride Carbon Dioxide BUN Creatinine Est GFR ( Amer) Est GFR (Non-Af Amer) BUN/Creatinine Ratio Glucose POC Glucose Calculated Osmolality Lactic Acid Calcium Venous Ioniz Calcium 1.06 L Phosphorus Magnesium Nasal Screen MRSA (PCR) Positive A Vancomycin Trough 20 H 10/05/17 10/05/17 10/06/17 19:46 23:31 04:41 WBC RBC Hgb Hct MCV MCH MCHC RDW Plt Count MPV Immature Gran % Seg Neutrophils % Lymphocytes % Monocytes % Eosinophils % Basophils % Neutrophils # Lymphocytes # Monocytes # Eosinophils # Basophils # Platelet Estimate ABG pH ABG pCO2 ABG pO2 ABG HCO3 ABG Total CO2 ABG O2 Saturation ABG Base Excess Adam Test Respiration Rate O2 Delivery Device Blood Gas Modality Inspired O2 Tidal Volume PEEP Sodium Potassium Chloride Carbon Dioxide BUN Creatinine Est GFR ( Amer) Est GFR (Non-Af Amer) BUN/Creatinine Ratio Glucose POC Glucose 164 H 111 H 154 H Calculated Osmolality Lactic Acid Calcium Venous Ioniz Calcium Phosphorus Magnesium Nasal Screen MRSA (PCR) Vancomycin Trough 10/06/17 10/06/17 10/06/17 04:50 04:50 04:50 WBC 11.3 H RBC 3.10 L Hgb 9.5 L Hct 29.3 L MCV 94.5 MCH 30.6 MCHC 32.4 RDW 14.6 H Plt Count 139 L MPV 9.5 Immature Gran % 0.7 Seg Neutrophils % 90.1 Lymphocytes % 3.1 Monocytes % 4.3 Eosinophils % 1.7 Basophils % 0.1 Neutrophils # 10.2 H Lymphocytes # 0.4 L Monocytes # 0.5 Eosinophils # 0.2 Basophils # 0.0 Platelet Estimate Normal ABG pH ABG pCO2 ABG pO2 ABG HCO3 ABG Total CO2 ABG O2 Saturation ABG Base Excess Adam Test Respiration Rate O2 Delivery Device Blood Gas Modality Inspired O2 Tidal Volume PEEP Sodium 131 L Potassium 4.3 Chloride 98 Carbon Dioxide 24 BUN 68 H Creatinine 1.63 H Est GFR ( Amer) 49 L Est GFR (Non-Af Amer) 40 L BUN/Creatinine Ratio 42 H Glucose 173 H POC Glucose Calculated Osmolality 296 Lactic Acid 0.9 Calcium 7.9 L Venous Ioniz Calcium Phosphorus Magnesium Nasal Screen MRSA (PCR) Vancomycin Trough 10/06/17 10/06/17 10/06/17 04:50 04:56 05:18 WBC RBC Hgb Hct MCV MCH MCHC RDW Plt Count MPV Immature Gran % Seg Neutrophils % Lymphocytes % Monocytes % Eosinophils % Basophils % Neutrophils # Lymphocytes # Monocytes # Eosinophils # Basophils # Platelet Estimate ABG pH 7.40 ABG pCO2 43 ABG pO2 68 L ABG HCO3 26 ABG Total CO2 27 H ABG O2 Saturation 93 L ABG Base Excess 1 Adam Test N/A Respiration Rate 14 O2 Delivery Device Adult Vent Blood Gas Modality PRVC Inspired O2 30.0 Tidal Volume 550 PEEP 5 Sodium Potassium Chloride Carbon Dioxide BUN Creatinine Est GFR ( Amer) Est GFR (Non-Af Amer) BUN/Creatinine Ratio Glucose POC Glucose Calculated Osmolality Lactic Acid Calcium Venous Ioniz Calcium 1.07 L Phosphorus 4.7 H Magnesium 2.3 Nasal Screen MRSA (PCR) Vancomycin Trough 10/06/17 07:15 WBC RBC Hgb Hct MCV MCH MCHC RDW Plt Count MPV Immature Gran % Seg Neutrophils % Lymphocytes % Monocytes % Eosinophils % Basophils % Neutrophils # Lymphocytes # Monocytes # Eosinophils # Basophils # Platelet Estimate ABG pH ABG pCO2 ABG pO2 ABG HCO3 ABG Total CO2 ABG O2 Saturation ABG Base Excess Adam Test Respiration Rate O2 Delivery Device Blood Gas Modality Inspired O2 Tidal Volume PEEP Sodium Potassium Chloride Carbon Dioxide BUN Creatinine Est GFR ( Amer) Est GFR (Non-Af Amer) BUN/Creatinine Ratio Glucose POC Glucose 148 H Calculated Osmolality Lactic Acid Calcium Venous Ioniz Calcium Phosphorus Magnesium Nasal Screen MRSA (PCR) Vancomycin Trough - Impressions Impressions KUB X-Ray 10/03/17 22:30 IMPRESSION: The enteric tube tip is in the proximal stomach and the side port is at the level of the gastroesophageal junction. Further advancement of the tube is recommended. D/ / 10/03/2017 22:57:25 Kvng Porras MD / enrique Interpreting Provider: Kvng Porras MD Echocardiogram Limited Views 10/03/17 23:17 Impressions: LVEF 50-55%. Mild concentric left ventricular hypertrophy. Normal LV chamber size. Atypical septal motion consistent with paced rhythm. Normal right ventricular structure and function. Left Ventricular Wall Motion: Rest Echo Findings All wall segments showed normal motion. Findings: Study Quality * Technically adequate exam. ECG Findings * Tachycardia noted. Paced rhythm. Left Ventricle * LVEF 50-55%. * Normal LV chamber size. * Mild concentric left ventricular hypertrophy. * Atypical septal motion consistent with paced rhythm. Right Ventricle * Normal right ventricular structure and function. Left Atrium * Severely dilated left atrium. Right Atrium * Moderately dilated right atrium. Pericardium * The pericardium appears normal. Device lead * A device lead was visualized in the right atrium and right ventricle. - ABG Interpretation ABG results: ABG ABG pH 7.40 pH Units (7.32-7.45) 10/06/17 04:56 ABG pCO2 43 mmHg (35-45) 10/06/17 04:56 ABG pO2 68 mmHg (85-104) L 10/06/17 04:56 ABG O2 Saturation 93 % (95-98) L 10/06/17 04:56 PT/INR, D-dimer PT 17.9 Seconds (9.4-12.1) H 10/03/17 19:14
[2017-10-06] MEDS: Gabapentin 300 MG CAPSULE PO SCH ×2 (11:42→20:50)
--- NOTE | 2017-10-06 15:01 | Event Note ---
Date of Encounter: 10/06/17 Time of Encounter: 14:58 Spoke to Vanesa Lowry from wound care about the decubitus ulcers on the sacrum and R heel. She says that the wounds are clean and that she has no concerns for osteomyelitis. At this point, we will not pursue a CT of the ulcers and we will stop the vancomycin.
[2017-10-06] MEDS ORDERED: Ondansetron ODT 4 MG TAB.RAPDIS PO PRN (15:19)
[2017-10-06] MEDS: Acetaminophen 325 MG TABLET PO SCH (20:50)
[2017-10-06] MEDS: Apixaban 5 MG TABLET PO SCH (20:50)
[2017-10-06] MEDS: Benzonatate 100 MG CAPSULE PO SCH (20:50)
[2017-10-07] MEDS: Phenylephrine 20 MG in D5% in Water 250 ML IVC SCH ×2 (02:01→12:09)
[2017-10-07] MEDS: Ipratropium/Albuterol Neb 3 ML IH SCH ×4 (03:43→21:42)
[2017-10-07 04:44] LABS: Basophils % 0.2 %; Eosinophils # 0.3 K/mcL (0.0-0.6); Eosinophils % 2.1 %; Hematocrit 32.3 % (37.5-50.1); Hemoglobin 10.4 g/dL (12.9-16.9); Lymphocytes # 0.5 K/mcL (0.6-4.6); Lymphocytes % 3.9 %; Mean Corpuscular HGB Conc 32.2 g/dL (31.6-35.5); Mean Corpuscular Hemoglobin 30.6 pg (28.0-33.3); Mean Platelet Volume 10.1 fL (9.4-12.4); Monocytes # 0.6 K/mcL (0.0-1.3); Nucleated Red Blood Cells 0.2 /100 WBC (0); Platelet Count 124 K/mcL (140-400); Red Cell Distribution Width 14.6 % (11.5-14.5); Segmented Neutrophils % 87.8 %
[2017-10-07 05:06] LABS: Calcium 7.9 mg/dL (8.6-10.3); Potassium 4.4 mEq/L (3.5-5.1)
--- NOTE | 2017-10-07 07:21 | Pulmonology Progress Note ---
<EverMaggi pryornt - Last Filed: 10/07/17 09:06> Date of Encounter: 10/07/17 Time of Encounter: 07:21 Assessment and Plan (1) Septic shock Current Visit: Yes Status: Acute Suspected sources include HCAP vs. UTI vs. pressure ulcers. Given recent abd CT finding of emphysematous cystitis, this is probably believed to be the source of the patient's sepsis. Blood cultures positive for E. Coli. Negative for Legionella. Urine culture positive for E. coli ESBL. - Continue ertapenem - Stopped Vanco yesterday - Infectious disease following. - No IVF due to CHF exacerbation - Requires continuined minimal pressor requirement, wean as soon as possible (2) Acute respiratory failure with hypoxia Current Visit: Yes Status: Acute Multifactorial with CHF exacerbation and HCAP. - Extubated yesterday, doing well - CLD until off pressors (3) Bacteremia due to Escherichia coli Current Visit: Yes Status: Acute 1. likely from UTI/emphysematous cystitis 2. ID following, continue current ABX 3. Stopped vanco yesterday (4) CHF exacerbation Current Visit: Yes Status: Acute - IVF restriction - Continue diuresis - Balance BP and volume status - Wean pressors as tolerated Qualifiers: Heart failure type: systolic Qualified Code(s): I50.23 - Acute on chronic systolic (congestive) heart failure (5) History of DVT (deep vein thrombosis) Current Visit: Yes Status: Acute Restarted home eliquis (6) DVT prophylaxis Current Visit: No Status: Acute - On home eliquis now, can D/C (7) Pressure ulcer of coccygeal region Current Visit: No Status: Acute - wound care following, did not think source of infection or concern over osteo so Vanco was stopped - ID following, wound care to monitor Qualifiers: Pressure ulcer stage: unstageable Qualified Code(s): L89.150 - Pressure ulcer of sacral region, unstageable Subjective Principal diagnosis: Septic shock, Acue respiratory failure Interval history: no acute changes overnight, continues to do well. Extubated, eating/drinking, moving around OOB. Has remained with soft pressure's and requiring low dose enrique. Otherwise, doing well. Objective PUL Vital signs: Last Vital Signs Temp 98.6 F 10/07/17 04:00 Pulse 76 10/07/17 05:00 Resp 14 10/07/17 05:00 BP 94/54 10/07/17 05:00 Pulse Ox 97 10/07/17 05:00 General appearance: no acute distress Eyes: nonicteric ENT: oropharynx moist Neck: supple Effort: normal Cardiovascular: regular rate and rhythm Gastrointestinal: soft, tender, other (distended) Integumentary: normal Extremities: no cyanosis, edema Musculoskeletal: no deformities normal mental status, non-focal exam Results - Laboratory Findings CBC and BMP: 10/07/17 04:31 10/07/17 04:31 ABG ABG pH 7.40 pH Units (7.32-7.45) 10/06/17 04:56 ABG pCO2 43 mmHg (35-45) 10/06/17 04:56 ABG pO2 68 mmHg (85-104) L 10/06/17 04:56 ABG O2 Saturation 93 % (95-98) L 10/06/17 04:56 PT/INR, D-dimer PT 17.9 Seconds (9.4-12.1) H 10/03/17 19:14 Abnormal lab findings: Abnormal lab results WBC 12.6 K/mcL (4.3-11.1) H 10/07/17 04:31 RBC 3.40 M/mcL (4.19-5.50) L 10/07/17 04:31 Hgb 10.4 g/dL (12.9-16.9) L 10/07/17 04:31 Hct 32.3 % (37.5-50.1) L 10/07/17 04:31 RDW 14.6 % (11.5-14.5) H 10/07/17 04:31 Plt Count 124 K/mcL (140-400) L 10/07/17 04:31 Neutrophils # 11.0 K/mcL (1.6-8.9) H 10/07/17 04:31 Lymphocytes # 0.5 K/mcL (0.6-4.6) L 10/07/17 04:31 Nucleated RBCs/100 WBC 0.2 /100 WBC (0) H 10/07/17 04:31 Toxic Granulation Present (Not Present) A 10/05/17 03:50 Dohle Bodies Present (Not Present) A 10/03/17 19:14 Polychromasia 1+ (Not Present) A 10/03/17 19:14 ESR 93 mm/hr (0-10) H 10/04/17 14:44 PT 17.9 Seconds (9.4-12.1) H 10/03/17 19:14 ABG pO2 68 mmHg (85-104) L 10/06/17 04:56 ABG Total CO2 27 mEq/L (20-26) H 10/06/17 04:56 ABG O2 Saturation 93 % (95-98) L 10/06/17 04:56 Sodium 130 mEq/L (136-145) L 10/07/17 04:31 BUN 73 mg/dL (8-23) H 10/07/17 04:31 Creatinine 1.59 mg/dL (0.70-1.30) H 10/07/17 04:31 Est GFR ( Amer) 50 (> 60) L 10/07/17 04:31 Est GFR (Non-Af Amer) 42 (> 60) L 10/07/17 04:31 BUN/Creatinine Ratio 46 (6-26) H 10/07/17 04:31 Glucose 122 mg/dL (70-105) H 10/07/17 04:31 POC Glucose 211 mg/dL (70-99) H 10/06/17 19:46 Calcium 7.9 mg/dL (8.6-10.3) L 10/07/17 04:31 Venous Ioniz Calcium 1.07 mmol/L (1.15-1.35) L 10/06/17 05:18 Phosphorus 4.7 mg/dL (2.7-4.5) H 10/06/17 04:50 Iron < 10 mcg/dL (65-175) L 10/04/17 00:30 Transferrin 86 mg/dL (203-362) L 10/04/17 00:30 Ferritin 1262 ng/mL (20-250) H 10/04/17 00:30 AST 41 Units/L (13-39) H 10/03/17 19:14 Alkaline Phosphatase 271 Units/L (34-104) H 10/03/17 19:14 Troponin I 0.50 ng/mL (< 0.04) H* 10/04/17 05:50 C-Reactive Protein 249 mg/L (Less than 10) H 06/06/18 14:44 B-Natriuretic Peptide 1124 pg/mL (Less than 100) H 10/03/17 19:14 Serum Total Protein 4.4 g/dL (6.4-8.9) L 10/03/17 19:14 Albumin 1.9 g/dL (3.5-5.7) L 10/03/17 19:14 Albumin/Globulin Ratio 0.8 (1.1-2.2) L 10/03/17 19:14 Urine Clarity Cloudy (Clear) A 10/03/17 18:11 Urine Protein 30 mg/dL (Neg-Trace) H 10/03/17 18:11 Urine Blood Large (Negative) H 10/03/17 18:11 Ur Leukocyte Esterase Large (Negative) H 10/03/17 18:11 Urine Microscopic RBC 15-30 per hpf (0-3) H 10/03/17 18:11 Urine Microscopic WBC 30-50 per hpf (0-3) H 10/03/17 18:11 Urine Bacteria Many per hpf (None-Few) H 10/03/17 18:11 Ur Culture Indicated? YES (NO) A 10/03/17 18:11 Nasal Screen MRSA (PCR) Positive (Negative) A 10/05/17 18:36 Vancomycin Trough 20 mcg/mL (5-10) H 10/05/17 18:13 Enterobacteriac sp PCR DETECTED (Not Detect) A 10/03/17 19:14 E. coli (PCR) DETECTED (Not Detect) A 10/03/17 19:14 Entero/Rhino (PCR) DETECTED (Not Detect) A 10/04/17 15:40 - Microbiology Findings Microbiology Findings: Microbiology, Last 48 Hours 10/04/17 16:00 Sputum Culture - Final Sputum - Clinical Findings Intake & Output: Intake & Output 10/06/1718 10/07/17 15:59 23:59 07:59 Intake Total 592 / 592 830 / 830 252 / 252 Output Total 175 / 175 500 / 500 1000 / 1000 Balance 417 / 417 330 / 330 -748 / -748 Weight 133.1 kg Consult Discharge Plan - Plan Referrals: Radha Jones, FLAG DECORATOR [Primary Care Provider] - <Batsheva Damico - Last Filed: 10/07/17 12:02> Date of Encounter: 10/07/17 Objective PUL Vital signs: Last Vital Signs Temp 97.8 F 10/07/17 08:00 Pulse 106 10/07/17 11:00 Resp 18 10/07/17 11:01 BP 82/55 10/07/17 11:00 Pulse Ox 97 10/07/17 11:01 Results - Laboratory Findings CBC and BMP: 10/07/17 04:31 10/07/17 04:31 ABG ABG pH 7.40 pH Units (7.32-7.45) 10/06/17 04:56 ABG pCO2 43 mmHg (35-45) 10/06/17 04:56 ABG pO2 68 mmHg (85-104) L 10/06/17 04:56 ABG O2 Saturation 93 % (95-98) L 10/06/17 04:56 PT/INR, D-dimer PT 17.9 Seconds (9.4-12.1) H 10/03/17 19:14 Abnormal lab findings: Abnormal lab results WBC 12.6 K/mcL (4.3-11.1) H 10/07/17 04:31 RBC 3.40 M/mcL (4.19-5.50) L 10/07/17 04:31 Hgb 10.4 g/dL (12.9-16.9) L 10/07/17 04:31 Hct 32.3 % (37.5-50.1) L 10/07/17 04:31 RDW 14.6 % (11.5-14.5) H 10/07/17 04:31 Plt Count 124 K/mcL (140-400) L 10/07/17 04:31 Neutrophils # 11.0 K/mcL (1.6-8.9) H 10/07/17 04:31 Lymphocytes # 0.5 K/mcL (0.6-4.6) L 10/07/17 04:31 Nucleated RBCs/100 WBC 0.2 /100 WBC (0) H 10/07/17 04:31 Toxic Granulation Present (Not Present) A 10/05/17 03:50 Dohle Bodies Present (Not Present) A 10/03/17 19:14 Polychromasia 1+ (Not Present) A 10/03/17 19:14 ESR 93 mm/hr (0-10) H 10/04/17 14:44 PT 17.9 Seconds (9.4-12.1) H 10/03/17 19:14 ABG pO2 68 mmHg (85-104) L 10/06/17 04:56 ABG Total CO2 27 mEq/L (20-26) H 10/06/17 04:56 ABG O2 Saturation 93 % (95-98) L 10/06/17 04:56 Sodium 130 mEq/L (136-145) L 10/07/17 04:31 BUN 73 mg/dL (8-23) H 10/07/17 04:31 Creatinine 1.59 mg/dL (0.70-1.30) H 10/07/17 04:31 Est GFR ( Amer) 50 (> 60) L 10/07/17 04:31 Est GFR (Non-Af Amer) 42 (> 60) L 10/07/17 04:31 BUN/Creatinine Ratio 46 (6-26) H 10/07/17 04:31 Glucose 122 mg/dL (70-105) H 10/07/17 04:31 POC Glucose 139 mg/dL (70-99) H 10/07/17 07:39 Calcium 7.9 mg/dL (8.6-10.3) L 10/07/17 04:31 Venous Ioniz Calcium 1.07 mmol/L (1.15-1.35) L 10/06/17 05:18 Phosphorus 4.7 mg/dL (2.7-4.5) H 10/06/17 04:50 Iron < 10 mcg/dL (65-175) L 10/04/17 00:30 Transferrin 86 mg/dL (203-362) L 10/04/17 00:30 Ferritin 1262 ng/mL (20-250) H 10/04/17 00:30 AST 41 Units/L (13-39) H 10/03/17 19:14 Alkaline Phosphatase 271 Units/L (34-104) H 10/03/17 19:14 Troponin I 0.50 ng/mL (< 0.04) H* 10/04/17 05:50 C-Reactive Protein 249 mg/L (Less than 10) H 10/04/17 14:44 B-Natriuretic Peptide 1124 pg/mL (Less than 100) H 10/03/17 19:14 Serum Total Protein 4.4 g/dL (6.4-8.9) L 10/03/17 19:14 Albumin 1.9 g/dL (3.5-5.7) L 10/03/17 19:14 Albumin/Globulin Ratio 0.8 (1.1-2.2) L 10/03/17 19:14 Urine Clarity Cloudy (Clear) A 10/03/17 18:11 Urine Protein 30 mg/dL (Neg-Trace) H 10/03/17 18:11 Urine Blood Large (Negative) H 10/03/17 18:11 Ur Leukocyte Esterase Large (Negative) H 10/03/17 18:11 Urine Microscopic RBC 15-30 per hpf (0-3) H 10/03/17 18:11 Urine Microscopic WBC 30-50 per hpf (0-3) H 10/03/17 18:11 Urine Bacteria Many per hpf (None-Few) H 10/03/17 18:11 Ur Culture Indicated? YES (NO) A 10/03/17 18:11 Nasal Screen MRSA (PCR) Positive (Negative) A 10/05/17 18:36 Vancomycin Trough 20 mcg/mL (5-10) H 10/05/17 18:13 Enterobacteriac sp PCR DETECTED (Not Detect) A 10/03/17 19:14 E. coli (PCR) DETECTED (Not Detect) A 10/03/17 19:14 Entero/Rhino (PCR) DETECTED (Not Detect) A 10/04/17 15:40 - Microbiology Findings Microbiology Findings: Microbiology, Last 48 Hours 10/04/17 16:00 Sputum Culture - Final Sputum - Clinical Findings Intake & Output: Intake & Output 10/06/1718 10/07/17 23:59 07:59 15:59 Intake Total 830 / 830 252 / 252 740 / 740 Output Total 500 / 500 1000 / 1000 375 / 375 Balance 330 / 330 -748 / -748 365 / 365 Weight 133.1 kg - Attending Attestation I examined this patient and my medical decision-making was reviewed with the Resident Physician. I agree with the documented findings, disposition and treatment plan as described except to the extent set forth below. Patient seen and examined. Labs, radiology, chart personally reviewed. 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 GI: Nutrition per dietary and GI prophylaxis per routine. Patient has some abdominal discomfort and he has been on pressors and will monitor closely. He is able to tolerate the diet. Heme: DVT prophylaxis per routine ID: Continue antibiotics and plan to de-escalation Renal; urine out put and renal funtion reviewed Endorcine: blood glucose is monitored Lines: all lines checked and no evidence of infections Skin: skin care to prevent pressure ulcers per nursing routine care
[2017-10-07] MEDS: Furosemide 40 MG/4 ML VIAL IVP SCH ×2 (08:02→16:30)
[2017-10-07] MEDS: Benzonatate 100 MG CAPSULE PO SCH ×3 (08:03→20:38)
[2017-10-07] MEDS: Insulin LISPRO 300 UNITS/3 ML VIAL SQ SCH ×4 (08:03→20:37)
[2017-10-07] MEDS: Acetaminophen 325 MG TABLET PO SCH ×3 (08:03→20:38)
[2017-10-07] MEDS: Gabapentin 300 MG CAPSULE PO SCH ×2 (08:03→20:38)
[2017-10-07] MEDS: Pantoprazole 40 MG VIAL IVP SCH (08:04)
[2017-10-07] MEDS: Apixaban 5 MG TABLET PO SCH ×2 (08:05→20:37)
[2017-10-07] MEDS: Ertapenem 1,000 MG in 0.9 % Sodium Chloride Mini Bag 100 ML IVPB SCH (08:07)
[2017-10-07] MEDS ORDERED: Albumin 25% 25gram/100mL 25 GM/100 ML IV.SOLN IVPB ONE (12:41)
[2017-10-08] MEDS: Phenylephrine 20 MG in D5% in Water 250 ML IVC SCH ×2 (00:54→22:46)
[2017-10-08] MEDS: Ipratropium/Albuterol Neb 3 ML IH SCH ×4 (04:13→21:47)
--- NOTE | 2017-10-08 07:52 | Pulmonology Progress Note ---
<MargauxBatsheva M - Last Filed: 10/08/17 09:10> Date of Encounter: 10/08/17 Objective PUL Vital signs: Last Vital Signs Temp 96.9 F L 10/08/17 08:56 Pulse 72 10/08/17 08:00 Resp 20 10/08/17 08:00 BP 100/61 10/08/17 08:00 Pulse Ox 92 10/08/17 08:00 Results - Laboratory Findings CBC and BMP: 10/07/17 04:31 10/07/17 04:31 ABG ABG pH 7.40 pH Units (7.32-7.45) 10/06/17 04:56 ABG pCO2 43 mmHg (35-45) 10/06/17 04:56 ABG pO2 68 mmHg (85-104) L 10/06/17 04:56 ABG O2 Saturation 93 % (95-98) L 10/06/17 04:56 PT/INR, D-dimer PT 17.9 Seconds (9.4-12.1) H 10/03/17 19:14 Abnormal lab findings: Abnormal lab results WBC 12.6 K/mcL (4.3-11.1) H 10/07/17 04:31 RBC 3.40 M/mcL (4.19-5.50) L 10/07/17 04:31 Hgb 10.4 g/dL (12.9-16.9) L 10/07/17 04:31 Hct 32.3 % (37.5-50.1) L 10/07/17 04:31 RDW 14.6 % (11.5-14.5) H 10/07/17 04:31 Plt Count 124 K/mcL (140-400) L 10/07/17 04:31 Neutrophils # 11.0 K/mcL (1.6-8.9) H 10/07/17 04:31 Lymphocytes # 0.5 K/mcL (0.6-4.6) L 10/07/17 04:31 Nucleated RBCs/100 WBC 0.2 /100 WBC (0) H 10/07/17 04:31 Toxic Granulation Present (Not Present) A 10/05/17 03:50 Dohle Bodies Present (Not Present) A 10/03/17 19:14 Polychromasia 1+ (Not Present) A 10/03/17 19:14 ESR 93 mm/hr (0-10) H 10/04/17 14:44 PT 17.9 Seconds (9.4-12.1) H 10/03/17 19:14 ABG pO2 68 mmHg (85-104) L 10/06/17 04:56 ABG Total CO2 27 mEq/L (20-26) H 10/06/17 04:56 ABG O2 Saturation 93 % (95-98) L 10/06/17 04:56 Sodium 130 mEq/L (136-145) L 10/07/17 04:31 BUN 73 mg/dL (8-23) H 10/07/17 04:31 Creatinine 1.59 mg/dL (0.70-1.30) H 10/07/17 04:31 Est GFR ( Amer) 50 (> 60) L 10/07/17 04:31 Est GFR (Non-Af Amer) 42 (> 60) L 10/07/17 04:31 BUN/Creatinine Ratio 46 (6-26) H 10/07/17 04:31 Glucose 122 mg/dL (70-105) H 10/07/17 04:31 POC Glucose 137 mg/dL (70-99) H 10/08/17 07:50 Calcium 7.9 mg/dL (8.6-10.3) L 10/07/17 04:31 Venous Ioniz Calcium 1.07 mmol/L (1.15-1.35) L 10/06/17 05:18 Phosphorus 4.7 mg/dL (2.7-4.5) H 10/06/17 04:50 Iron < 10 mcg/dL (65-175) L 10/04/17 00:30 Transferrin 86 mg/dL (203-362) L 10/04/17 00:30 Ferritin 1262 ng/mL (20-250) H 10/04/17 00:30 AST 41 Units/L (13-39) H 10/03/17 19:14 Alkaline Phosphatase 271 Units/L (34-104) H 10/03/17 19:14 Troponin I 0.50 ng/mL (< 0.04) H* 10/04/17 05:50 C-Reactive Protein 249 mg/L (Less than 10) H 10/04/17 14:44 B-Natriuretic Peptide 1124 pg/mL (Less than 100) H 10/03/17 19:14 Serum Total Protein 4.4 g/dL (6.4-8.9) L 10/03/17 19:14 Albumin 1.9 g/dL (3.5-5.7) L 10/03/17 19:14 Albumin/Globulin Ratio 0.8 (1.1-2.2) L 10/03/17 19:14 Urine Clarity Cloudy (Clear) A 10/03/17 18:11 Urine Protein 30 mg/dL (Neg-Trace) H 10/03/17 18:11 Urine Blood Large (Negative) H 10/03/17 18:11 Ur Leukocyte Esterase Large (Negative) H 10/03/17 18:11 Urine Microscopic RBC 15-30 per hpf (0-3) H 10/03/17 18:11 Urine Microscopic WBC 30-50 per hpf (0-3) H 10/03/17 18:11 Urine Bacteria Many per hpf (None-Few) H 10/03/17 18:11 Ur Culture Indicated? YES (NO) A 10/03/17 18:11 Nasal Screen MRSA (PCR) Positive (Negative) A 10/05/17 18:36 Vancomycin Trough 20 mcg/mL (5-10) H 10/05/17 18:13 Enterobacteriac sp PCR DETECTED (Not Detect) A 10/03/17 19:14 E. coli (PCR) DETECTED (Not Detect) A 10/03/17 19:14 Entero/Rhino (PCR) DETECTED (Not Detect) A 10/04/17 15:40 - Microbiology Findings Microbiology Findings: Microbiology, Last 48 Hours 10/07/17 04:25 Blood Culture - Preliminary Peripheral Venipuncture No growth. 10/07/17 04:31 Blood Culture - Preliminary Peripheral Venipuncture No growth. 10/04/17 16:00 Sputum Culture - Final Sputum - Clinical Findings Intake & Output: Intake & Output 10/07/17 10/08/17 10/08/17 23:59 07:59 15:59 Intake Total 252 / 252 Output Total 450 / 450 600 / 600 400 / 400 Balance -450 / -450 -348 / -348 -400 / -400 Weight 133.7 kg Consult Discharge Plan - Plan Referrals: Radha Jones, TIGHTENING MACHINE OPERATOR [Primary Care Provider] - - Attending Attestation I examined this patient and my medical decision-making was reviewed with the Resident Physician. I agree with the documented findings, disposition and treatment plan as described except to the extent set forth below. Patient seen and examined. Labs, radiology, chart personally reviewed. 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, Pulmonary: Acceptable oxygenation and ventilation and patient needed noninvasive ventilation overnight, however his own nasal cannula now and encourage incentive spirometry Cardiovascular: stable and he is off pressors now GI: Nutrition per dietary and GI prophylaxis per routine Heme: DVT prophylaxis per routine ID: Continue antibiotics and plan to de-escalation Renal; urine out put and renal funtion reviewed Endorcine: blood glucose is monitored Lines: all lines checked and no evidence of infections Skin: skin care to prevent pressure ulcers per nursing routine care I am hoping she will be able to be transferred out of ICU in next 24 hours. <Carina Back - Last Filed: 10/08/17 20:56> Date of Encounter: 10/08/17 Time of Encounter: 11:00 Assessment and Plan (1) Septic shock Current Visit: Yes Status: Acute Suspected sources include HCAP vs. UTI vs. pressure ulcers. Given recent abd CT finding of emphysematous cystitis, this is probably believed to be the source of the patient's sepsis. Blood cultures positive for E. Coli. Negative for Legionella. Urine culture positive for E. coli ESBL. - Continue ertapenem - Infectious disease following - Avoid IVF use if able d/t CHF - Goal is to wean off pressors, but still requiring some pressor support (2) Acute respiratory failure with hypoxia Current Visit: Yes Status: Acute Multifactorial, includes systolic CHF and HCAP Increased oxygen demand overnight requiring BiPAP for a couple hours this morning Now doing well on nasal cannula (3) CHF exacerbation Current Visit: Yes Status: Acute Still requiring some vasopressor support Wean pressors as tolerated Continue diuresis with furosemide Continue to balance volume status with blood pressure Qualifiers: Heart failure type: systolic Qualified Code(s): I50.23 - Acute on chronic systolic (congestive) heart failure (4) Bacteremia due to Escherichia coli Current Visit: Yes Status: Acute Most likely source is UTI/emphysematous cystitis Continue Invanz ID following (5) Pressure ulcer of coccygeal region Current Visit: No Status: Acute Vancomycin d/c'd Wound care following and doesn't feel this is infectious source, they aren't concerned for osteo ID following Continue routine skincare and turn Q2H Qualifiers: Pressure ulcer stage: unstageable Qualified Code(s): L89.150 - Pressure ulcer of sacral region, unstageable (6) DVT prophylaxis Current Visit: No Status: Acute On home dose Eliquis Subjective Principal diagnosis: Septic shock, Acue respiratory failure Interval history: Seen and examined, he is resting comfortably in bed. Increased oxygen demand overnight requiring oxymask, used BiPAP for a couple hours this morning. He is now on nasal cannula and doing well. His blood pressures continue to be soft, remains on phenylephrine gtt at this time. Objective PUL Vital signs: Last Vital Signs Temp 97.8 F 10/08/17 00:14 Pulse 91 10/08/17 07:10 Resp 17 10/08/17 07:10 BP 92/52 10/08/17 07:10 Pulse Ox 100 10/08/17 07:10 General appearance: no acute distress, asleep Neck: supple Effort: normal Auscultation: left: clear, right: other (transmitted upper airway noise) Cardiovascular: regular rate and rhythm Gastrointestinal: normoactive bowel sounds, soft, non-tender, non-distended Extremities: no cyanosis, no clubbing, edema (bilateral lower extremity 3+ pitting edema) normal mental status, non-focal exam Results - Laboratory Findings CBC and BMP: 10/07/17 04:31 10/07/17 04:31 ABG ABG pH 7.40 pH Units (7.32-7.45) 10/06/17 04:56 ABG pCO2 43 mmHg (35-45) 10/06/17 04:56 ABG pO2 68 mmHg (85-104) L 10/06/17 04:56 ABG O2 Saturation 93 % (95-98) L 10/06/17 04:56 PT/INR, D-dimer PT 17.9 Seconds (9.4-12.1) H 10/03/17 19:14 Abnormal lab findings: Abnormal lab results WBC 12.6 K/mcL (4.3-11.1) H 10/07/17 04:31 RBC 3.40 M/mcL (4.19-5.50) L 10/07/17 04:31 Hgb 10.4 g/dL (12.9-16.9) L 10/07/17 04:31 Hct 32.3 % (37.5-50.1) L 10/07/17 04:31 RDW 14.6 % (11.5-14.5) H 10/07/17 04:31 Plt Count 124 K/mcL (140-400) L 10/07/17 04:31 Neutrophils # 11.0 K/mcL (1.6-8.9) H 10/07/17 04:31 Lymphocytes # 0.5 K/mcL (0.6-4.6) L 10/07/17 04:31 Nucleated RBCs/100 WBC 0.2 /100 WBC (0) H 10/07/17 04:31 Toxic Granulation Present (Not Present) A 10/05/17 03:50 Dohle Bodies Present (Not Present) A 10/03/17 19:14 Polychromasia 1+ (Not Present) A 10/03/17 19:14 ESR 93 mm/hr (0-10) H 10/04/17 14:44 PT 17.9 Seconds (9.4-12.1) H 10/03/17 19:14 ABG pO2 68 mmHg (85-104) L 10/06/17 04:56 ABG Total CO2 27 mEq/L (20-26) H 10/06/17 04:56 ABG O2 Saturation 93 % (95-98) L 10/06/17 04:56 Sodium 130 mEq/L (136-145) L 10/07/17 04:31 BUN 73 mg/dL (8-23) H 10/07/17 04:31 Creatinine 1.59 mg/dL (0.70-1.30) H 10/07/17 04:31 Est GFR ( Amer) 50 (> 60) L 10/07/17 04:31 Est GFR (Non-Af Amer) 42 (> 60) L 10/07/17 04:31 BUN/Creatinine Ratio 46 (6-26) H 10/07/17 04:31 Glucose 122 mg/dL (70-105) H 10/07/17 04:31 POC Glucose 249 mg/dL (70-99) H 10/07/17 19:09 Calcium 7.9 mg/dL (8.6-10.3) L 10/07/17 04:31 Venous Ioniz Calcium 1.07 mmol/L (1.15-1.35) L 10/06/17 05:18 Phosphorus 4.7 mg/dL (2.7-4.5) H 10/06/17 04:50 Iron < 10 mcg/dL (65-175) L 10/04/17 00:30 Transferrin 86 mg/dL (203-362) L 10/04/17 00:30 Ferritin 1262 ng/mL (20-250) H 10/04/17 00:30 AST 41 Units/L (13-39) H 10/03/17 19:14 Alkaline Phosphatase 271 Units/L (34-104) H 10/03/17 19:14 Troponin I 0.50 ng/mL (< 0.04) H* 10/04/17 05:50 C-Reactive Protein 249 mg/L (Less than 10) H 10/04/17 14:44 B-Natriuretic Peptide 1124 pg/mL (Less than 100) H 10/03/17 19:14 Serum Total Protein 4.4 g/dL (6.4-8.9) L 10/03/17 19:14 Albumin 1.9 g/dL (3.5-5.7) L 10/03/17 19:14 Albumin/Globulin Ratio 0.8 (1.1-2.2) L 10/03/17 19:14 Urine Clarity Cloudy (Clear) A 10/03/17 18:11 Urine Protein 30 mg/dL (Neg-Trace) H 10/03/17 18:11 Urine Blood Large (Negative) H 10/03/17 18:11 Ur Leukocyte Esterase Large (Negative) H 10/03/17 18:11 Urine Microscopic RBC 15-30 per hpf (0-3) H 10/03/17 18:11 Urine Microscopic WBC 30-50 per hpf (0-3) H 10/03/17 18:11 Urine Bacteria Many per hpf (None-Few) H 10/03/17 18:11 Ur Culture Indicated? YES (NO) A 10/03/17 18:11 Nasal Screen MRSA (PCR) Positive (Negative) A 10/05/17 18:36 Vancomycin Trough 20 mcg/mL (5-10) H 10/05/17 18:13 Enterobacteriac sp PCR DETECTED (Not Detect) A 10/03/17 19:14 E. coli (PCR) DETECTED (Not Detect) A 10/03/17 19:14 Entero/Rhino (PCR) DETECTED (Not Detect) A 10/04/17 15:40 - Microbiology Findings Microbiology Findings: Microbiology, Last 48 Hours 10/04/17 16:00 Sputum Culture - Final Sputum - Clinical Findings Intake & Output: Intake & Output 10/07/17 10/07/17 10/08/17 15:59 23:59 07:59 Intake Total 1092 / 1092 252 / 252 Output Total 895 / 895 450 / 450 600 / 600 Balance 197 / 197 -450 / -450 -348 / -348 Weight 133.7 kg
[2017-10-08] MEDS: Furosemide 40 MG/4 ML VIAL IVP SCH ×2 (07:56→17:18)
[2017-10-08] MEDS: Gabapentin 300 MG CAPSULE PO SCH ×2 (07:56→19:59)
[2017-10-08] MEDS: Pantoprazole 40 MG VIAL IVP SCH (07:56)
[2017-10-08] MEDS: Apixaban 5 MG TABLET PO SCH ×2 (07:56→20:00)
[2017-10-08] MEDS: Acetaminophen 325 MG TABLET PO SCH ×3 (07:57→20:00)
[2017-10-08] MEDS: Ertapenem 1,000 MG in 0.9 % Sodium Chloride Mini Bag 100 ML IVPB SCH (07:57)
[2017-10-08] MEDS: Benzonatate 100 MG CAPSULE PO SCH ×3 (07:57→20:00)
[2017-10-08] MEDS: Insulin LISPRO 300 UNITS/3 ML VIAL SQ SCH ×4 (08:20→20:02)
[2017-10-08] MEDS: *HR* OxyCODONE/APAP 5/325 TABLET PO PRN (15:37)
[2017-10-08] MEDS: FentaNYL (PF) 1,000 MCG in 0.9 % Sodium Chloride 80 ML IVC SCH (20:00)
[2017-10-08] MEDS: Norepinephrine 4 MG in D5% in Water 250 ML IVC SCH (20:01)
[2017-10-09] MEDS: Ipratropium/Albuterol Neb 3 ML IH SCH ×4 (03:14→22:08)
[2017-10-09 03:34] LABS: Basophils % 0.4 %; Eosinophils # 0.5 K/mcL (0.0-0.6); Eosinophils % 4.3 %; Hematocrit 31.4 % (37.5-50.1); Hemoglobin 10.1 g/dL (12.9-16.9); Immature Granulocytes % 3.5 % (0-4); Lymphocytes # 0.6 K/mcL (0.6-4.6); Lymphocytes % 5.5 %; Mean Corpuscular HGB Conc 32.2 g/dL (31.6-35.5); Mean Corpuscular Hemoglobin 30.4 pg (28.0-33.3); Mean Corpuscular Volume 94.6 fL (83.0-100.0); Mean Platelet Volume 9.9 fL (9.4-12.4); Monocytes # 0.9 K/mcL (0.0-1.3); Monocytes % 8.3 %; Neutrophils # 8.6 K/mcL (1.6-8.9); Nucleated Red Blood Cells 0.5 /100 WBC (0); Platelet Count 135 K/mcL (140-400); Red Blood Count 3.32 M/mcL (4.19-5.50); Red Cell Distribution Width 14.6 % (11.5-14.5)
[2017-10-09 03:52] LABS: Calcium 7.7 mg/dL (8.6-10.3); Potassium 4.4 mEq/L (3.5-5.1)
--- NOTE | 2017-10-09 07:12 | Pulmonology Progress Note ---
<DominicselenaMo hollingsworth W - Last Filed: 10/09/17 10:33> Date of Encounter: 10/09/17 Objective PUL Vital signs: Last Vital Signs Temp 97.5 F L 10/09/17 03:00 Pulse 70 10/09/17 06:00 Resp 18 10/09/17 06:00 BP 108/60 10/09/17 06:00 Pulse Ox 97 10/09/17 06:00 Results - Laboratory Findings CBC and BMP: 10/09/17 03:07 10/09/17 03:07 ABG ABG pH 7.40 pH Units (7.32-7.45) 10/06/17 04:56 ABG pCO2 43 mmHg (35-45) 10/06/17 04:56 ABG pO2 68 mmHg (85-104) L 10/06/17 04:56 ABG O2 Saturation 93 % (95-98) L 10/06/17 04:56 PT/INR, D-dimer PT 17.9 Seconds (9.4-12.1) H 10/03/17 19:14 Abnormal lab findings: Abnormal lab results RBC 3.32 M/mcL (4.19-5.50) L 10/09/17 03:07 Hgb 10.1 g/dL (12.9-16.9) L 10/09/17 03:07 Hct 31.4 % (37.5-50.1) L 10/09/17 03:07 RDW 14.6 % (11.5-14.5) H 10/09/17 03:07 Plt Count 135 K/mcL (140-400) L 10/09/17 03:07 Nucleated RBCs/100 WBC 0.5 /100 WBC (0) H 10/09/17 03:07 Toxic Granulation Present (Not Present) A 10/05/17 03:50 Dohle Bodies Present (Not Present) A 10/03/17 19:14 Polychromasia 1+ (Not Present) A 10/03/17 19:14 ESR 93 mm/hr (0-10) H 10/04/17 14:44 PT 17.9 Seconds (9.4-12.1) H 10/03/17 19:14 ABG pO2 68 mmHg (85-104) L 10/06/17 04:56 ABG Total CO2 27 mEq/L (20-26) H 10/06/17 04:56 ABG O2 Saturation 93 % (95-98) L 10/06/17 04:56 Sodium 132 mEq/L (136-145) L 10/09/17 03:07 Chloride 97 mEq/L (98-107) L 10/09/17 03:07 BUN 81 mg/dL (8-23) H 10/09/17 03:07 Creatinine 1.46 mg/dL (0.70-1.30) H 10/09/17 03:07 Est GFR ( Amer) 56 (> 60) L 10/09/17 03:07 Est GFR (Non-Af Amer) 46 (> 60) L 10/09/17 03:07 BUN/Creatinine Ratio 55 (6-26) H 10/09/17 03:07 POC Glucose 180 mg/dL (70-99) H 10/08/17 20:00 Calcium 7.7 mg/dL (8.6-10.3) L 10/09/17 03:07 Venous Ioniz Calcium 1.07 mmol/L (1.15-1.35) L 10/06/17 05:18 Phosphorus 4.7 mg/dL (2.7-4.5) H 10/06/17 04:50 Iron < 10 mcg/dL (65-175) L 10/04/17 00:30 Transferrin 86 mg/dL (203-362) L 10/04/17 00:30 Ferritin 1262 ng/mL (20-250) H 10/04/17 00:30 AST 41 Units/L (13-39) H 10/03/17 19:14 Alkaline Phosphatase 271 Units/L (34-104) H 10/03/17 19:14 Troponin I 0.50 ng/mL (< 0.04) H* 10/04/17 05:50 C-Reactive Protein 249 mg/L (Less than 10) H 10/04/17 14:44 B-Natriuretic Peptide 1124 pg/mL (Less than 100) H 10/03/17 19:14 Serum Total Protein 4.4 g/dL (6.4-8.9) L 10/03/17 19:14 Albumin 1.9 g/dL (3.5-5.7) L 10/03/17 19:14 Albumin/Globulin Ratio 0.8 (1.1-2.2) L 10/03/17 19:14 Urine Clarity Cloudy (Clear) A 10/03/17 18:11 Urine Protein 30 mg/dL (Neg-Trace) H 10/03/17 18:11 Urine Blood Large (Negative) H 10/03/17 18:11 Ur Leukocyte Esterase Large (Negative) H 10/03/17 18:11 Urine Microscopic RBC 15-30 per hpf (0-3) H 10/03/17 18:11 Urine Microscopic WBC 30-50 per hpf (0-3) H 10/03/17 18:11 Urine Bacteria Many per hpf (None-Few) H 10/03/17 18:11 Ur Culture Indicated? YES (NO) A 10/03/17 18:11 Nasal Screen MRSA (PCR) Positive (Negative) A 10/05/17 18:36 Vancomycin Trough 20 mcg/mL (5-10) H 10/05/17 18:13 Enterobacteriac sp PCR DETECTED (Not Detect) A 10/03/17 19:14 E. coli (PCR) DETECTED (Not Detect) A 10/03/17 19:14 Entero/Rhino (PCR) DETECTED (Not Detect) A 10/04/17 15:40 - Microbiology Findings Microbiology Findings: Microbiology, Last 48 Hours 10/07/17 04:25 Blood Culture - Preliminary Peripheral Venipuncture No growth. 10/07/17 04:31 Blood Culture - Preliminary Peripheral Venipuncture No growth. 10/04/17 16:00 Sputum Culture - Final Sputum - Clinical Findings Intake & Output: Intake & Output 10/08/1718 10/09/17 15:59 23:59 07:59 Intake Total 240 / 240 612 / 612 0 / 0 Output Total 650 / 650 600 / 600 400 / 400 Balance -410 / -410 -400 / -400 Weight 133.8 kg Consult Discharge Plan - Plan Referrals: Radha Jones, CHILD CARE CENTRE MANAGER [Primary Care Provider] - - Attending Attestation I examined this patient and my medical decision-making was reviewed with the Resident Physician. I agree with the documented findings, disposition and treatment plan as described except to the extent set forth below. We independently had [id number] contact with the patient Patient seen and examined at bedside Labs, radiology, chart personally reviewed. Management was reviewed during multidisciplinary critical care rounds. PRECINCT POLICE SERGEANT: The patient is awake and alert no focal deficits Pulm: Stable oxygenation on nasal cannula oxygen Cards: Distributive shock secondary to sepsis improving weaning vasopressors for goal map around 60-65 likely can stop phenylephrine today FEN-GI: Advance diet as tolerated Renal: Urine output monitored and stable continue daily monitoring of serum creatinine and electrolytes ID: Being treated for ESBL Escherichia coli bacteremia with ertapenem per ID recommendations appreciate the consultation Heme/Onc: DVT prophylaxis per routine Endo: Glucose Monitored Integ/MSK: Skin Care per routine ICU Nursing Protocol to prevent ulcers. Lines: All lines examined without evidence of infection : Dispo: ICU today can likely be transitioned to general medical floor with telemetry tomorrow CODE: Full <MissykatebeatrizArmando mai - Last Filed: 10/09/17 16:06> Date of Encounter: 10/09/17 Time of Encounter: 08:50 Assessment and Plan (1) Acute respiratory failure with hypoxia Current Visit: Yes Status: Acute Multifactorial with CHF exacerbation and HCAP. Was on CPAP earlier this morning. Was later extubated. O2 sat or 97% on 3 L NC. - Doing well on NC. (2) Septic shock Current Visit: Yes Status: Acute Suspected sources include HCAP vs. UTI vs. pressure ulcers. Given recent abd CT finding of emphysematous cystitis, this is probably believed to be the source of the patient's sepsis. Blood cultures positive for E. Coli. ESBL on 10/03. Last blood culture negative on 10/07. Negative for Legionella. Urine culture positive for E. coli ESBL on 10/04. On Day 4 of ertapenem. On pressor support. - Continue to titrate phenylephrine. - Continue ertapenem. - Infectious disease following. - No IVF due to CHF exacerbation. - Advance to solid diet. 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 Last two abdominal CTs from 09/01/17 and 09/21/17 both demonstrated gas within bladder wall. Patient has been seen by urology as outpatient but has missed multiple recent visits. Urine culture positive for E. coli. Ertapenem (day 4). Abdominal CT shows bladder within normal limits. - Continue to monitor renal function and avoid nephrotoxins. - Continue antibiotics. (4) UTI (urinary tract infection) Current Visit: Yes Status: Acute Urine culture positive for E. coli ESBL. - Per urology: Patient well-known to urology service for recurrent urinary tract infections. No further treatment at this time. Only treat symptomatically infections. - continue ertapenem.. - Infecious disease following. 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 Patient did undergo greenlight surgery in past Dr. Lara. We will continue to follow up patient in hospital. (6) HCAP (healthcare-associated pneumonia) Current Visit: Yes Status: Acute Patient on ertapenem day 4. WBC count within normal limits. Sputum culture prelim shows trace gram positive cocci. Blood cultures positive for E. coli. ESBL on 10/03. No growth on 10/07. - Continue ertapenem. . (7) CHF exacerbation Current Visit: Yes Status: Acute Patient has same b/l pedal pitting edema compared to yesterday. - 740 fluid balance. BUN increased from 73 to 81. Creatinine around baseline. On lasix 40 mg IV BID. Last echo was on 07/16 with EF of 45%. Echocardiogram on 10/04/17 shows LVEF of 50-55%. - Hold Lasix. - Monitor I & O's. Qualifiers: Heart failure type: systolic Qualified Code(s): I50.23 - Acute on chronic systolic (congestive) heart failure (8) Anemia Current Visit: No Status: Acute Hgb stable at 10. Likely secondary to chronic disease. Qualifiers: Anemia type: unspecified type Qualified Code(s): D64.9 - Anemia, unspecified (9) Diabetes mellitus Current Visit: No Status: Chronic Glucose of 97. - Continue insulin sliding scale. Qualifiers: Diabetes mellitus type: type 2 Diabetes mellitus half-way insulin use: without terminal system operator use Diabetes mellitus complication status: with kidney complications Diabetes mellitus complication detail: with chronic kidney disease Chronic kidney disease stage: stage 3 (moderate) Qualified Code(s): E11.22 - Type 2 diabetes mellitus with diabetic chronic kidney disease; N18.3 - Chronic kidney disease, stage 3 (moderate) (10) CKD (chronic kidney disease) Current Visit: No Status: Chronic Creatinine baseline from 1.5-1.6. Current creatinine at 1.46 Qualifiers: Chronic kidney disease stage: stage 3 (moderate) Qualified Code(s): N18.3 - Chronic kidney disease, stage 3 (moderate) (11) History of DVT (deep vein thrombosis) Current Visit: Yes Status: Acute On Eliquis 2.5 mg BID. (12) Pressure ulcer of coccygeal region Current Visit: No Status: Acute Per ID, cont with antibiotics. Wound care following. No concern for osteomyelitis per wound care. Qualifiers: Pressure ulcer stage: unstageable Qualified Code(s): L89.150 - Pressure ulcer of sacral region, unstageable (13) Pressure ulcer of ankle, right, unstageable Current Visit: No Status: Acute See plan above. (14) DVT prophylaxis Current Visit: No Status: Acute On Eliquis. Subjective Principal diagnosis: Septic shock, Acue respiratory failure Interval history: Patient denies any chest pain, shortness of breath, nausea, or vomiting. He does admit to some diffuse minor abdominal discomfort, however says that it has been improving since admission. Denies any fever or chills. Admits to bowel movements. Objective PUL Vital signs: Last Vital Signs Temp 97.5 F L 10/09/17 03:00 Pulse 70 10/09/17 06:00 Resp 18 10/09/17 06:00 BP 108/60 10/09/17 06:00 Pulse Ox 97 10/09/17 06:00 General appearance: no acute distress Eyes: nonicteric ENT: oropharynx moist Neck: supple Auscultation: bilateral: rhonchi Cardiovascular: regular rate and rhythm Gastrointestinal: normoactive bowel sounds, soft, non-tender, non-distended Extremities: no cyanosis, no clubbing, pink and warm, pulses normal, no ischemia or petechiae, edema (+3 bilateral pitting edema), other (Minor R caft tenderness with palpation. Negative Manuel's sign. ) Musculoskeletal: no deformities normal mental status mood appropriate, affect normal Results - Laboratory Findings CBC and BMP: 10/09/17 03:07 10/09/17 03:07 ABG ABG pH 7.40 pH Units (7.32-7.45) 10/06/17 04:56 ABG pCO2 43 mmHg (35-45) 10/06/17 04:56 ABG pO2 68 mmHg (85-104) L 10/06/17 04:56 ABG O2 Saturation 93 % (95-98) L 10/06/17 04:56 PT/INR, D-dimer PT 17.9 Seconds (9.4-12.1) H 10/03/17 19:14 Abnormal lab findings: Abnormal lab results RBC 3.32 M/mcL (4.19-5.50) L 10/09/17 03:07 Hgb 10.1 g/dL (12.9-16.9) L 10/09/17 03:07 Hct 31.4 % (37.5-50.1) L 10/09/17 03:07 RDW 14.6 % (11.5-14.5) H 10/09/17 03:07 Plt Count 135 K/mcL (140-400) L 10/09/17 03:07 Nucleated RBCs/100 WBC 0.5 /100 WBC (0) H 10/09/17 03:07 Toxic Granulation Present (Not Present) A 10/05/17 03:50 Dohle Bodies Present (Not Present) A 10/03/17 19:14 Polychromasia 1+ (Not Present) A 10/03/17 19:14 ESR 93 mm/hr (0-10) H 10/04/17 14:44 PT 17.9 Seconds (9.4-12.1) H 10/03/17 19:14 ABG pO2 68 mmHg (85-104) L 10/06/17 04:56 ABG Total CO2 27 mEq/L (20-26) H 10/06/17 04:56 ABG O2 Saturation 93 % (95-98) L 10/06/17 04:56 Sodium 132 mEq/L (136-145) L 10/09/17 03:07 Chloride 97 mEq/L (98-107) L 10/09/17 03:07 BUN 81 mg/dL (8-23) H 10/09/17 03:07 Creatinine 1.46 mg/dL (0.70-1.30) H 10/09/17 03:07 Est GFR ( Amer) 56 (> 60) L 10/09/17 03:07 Est GFR (Non-Af Amer) 46 (> 60) L 10/09/17 03:07 BUN/Creatinine Ratio 55 (6-26) H 10/09/17 03:07 POC Glucose 180 mg/dL (70-99) H 10/08/17 20:00 Calcium 7.7 mg/dL (8.6-10.3) L 10/09/17 03:07 Venous Ioniz Calcium 1.07 mmol/L (1.15-1.35) L 10/06/17 05:18 Phosphorus 4.7 mg/dL (2.7-4.5) H 10/06/17 04:50 Iron < 10 mcg/dL (65-175) L 10/04/17 00:30 Transferrin 86 mg/dL (203-362) L 10/04/17 00:30 Ferritin 1262 ng/mL (20-250) H 10/04/17 00:30 AST 41 Units/L (13-39) H 10/03/17 19:14 Alkaline Phosphatase 271 Units/L (34-104) H 10/03/17 19:14 Troponin I 0.50 ng/mL (< 0.04) H* 10/04/17 05:50 C-Reactive Protein 249 mg/L (Less than 10) H 10/04/17 14:44 B-Natriuretic Peptide 1124 pg/mL (Less than 100) H 10/03/17 19:14 Serum Total Protein 4.4 g/dL (6.4-8.9) L 10/03/17 19:14 Albumin 1.9 g/dL (3.5-5.7) L 10/03/17 19:14 Albumin/Globulin Ratio 0.8 (1.1-2.2) L 10/03/17 19:14 Urine Clarity Cloudy (Clear) A 10/03/17 18:11 Urine Protein 30 mg/dL (Neg-Trace) H 10/03/17 18:11 Urine Blood Large (Negative) H 10/03/17 18:11 Ur Leukocyte Esterase Large (Negative) H 10/03/17 18:11 Urine Microscopic RBC 15-30 per hpf (0-3) H 10/03/17 18:11 Urine Microscopic WBC 30-50 per hpf (0-3) H 10/03/17 18:11 Urine Bacteria Many per hpf (None-Few) H 10/03/17 18:11 Ur Culture Indicated? YES (NO) A 10/03/17 18:11 Nasal Screen MRSA (PCR) Positive (Negative) A 10/05/17 18:36 Vancomycin Trough 20 mcg/mL (5-10) H 10/05/17 18:13 Enterobacteriac sp PCR DETECTED (Not Detect) A 10/03/17 19:14 E. coli (PCR) DETECTED (Not Detect) A 10/03/17 19:14 Entero/Rhino (PCR) DETECTED (Not Detect) A 10/04/17 15:40 - Microbiology Findings Microbiology Findings: Microbiology, Last 48 Hours 10/07/17 04:25 Blood Culture - Preliminary Peripheral Venipuncture No growth. 10/07/17 04:31 Blood Culture - Preliminary Peripheral Venipuncture No growth. 10/04/17 16:00 Sputum Culture - Final Sputum - Clinical Findings Intake & Output: Intake & Output 10/08/17 10/08/17 10/09/17 15:59 23:59 07:59 Intake Total 240 / 240 612 / 612 0 / 0 Output Total 650 / 650 600 / 600 400 / 400 Balance -410 / -410 -400 / -400 Weight 133.8 kg
[2017-10-09] MEDS: Furosemide 40 MG/4 ML VIAL IVP SCH (08:05)
[2017-10-09] MEDS: Ertapenem 1,000 MG in 0.9 % Sodium Chloride Mini Bag 100 ML IVPB SCH (08:05)
[2017-10-09] MEDS: Acetaminophen 325 MG TABLET PO SCH ×3 (08:05→19:35)
[2017-10-09] MEDS: Gabapentin 300 MG CAPSULE PO SCH ×2 (08:05→19:35)
[2017-10-09] MEDS: Apixaban 5 MG TABLET PO SCH ×2 (08:05→19:35)
[2017-10-09] MEDS: Benzonatate 100 MG CAPSULE PO SCH ×3 (08:05→19:35)
[2017-10-09] MEDS: Pantoprazole 40 MG VIAL IVP SCH (08:05)
[2017-10-09] MEDS: Insulin LISPRO 300 UNITS/3 ML VIAL SQ SCH ×4 (08:06→19:59)
--- NOTE | 2017-10-09 09:46 | Infectious Disease Progress No ---
Date of Encounter: 10/09/17 Time of Encounter: 09:20 - Assessment and Plan (1) Septic shock Current Visit: Yes Status: Acute Patient had 3 of 4 SIRS criteria on presentation with leukocytosis, tachypnea, and tachycardia Lactic acid was 3.7 upon presentation, but since normalized Source and causative organism E. Coli CRP 249, ESR 93 on 10/04; will repeat tomorrow AM RIP positive for enterovirus/rhinovirus Patient off ventilator but still requiring pressor support Initial blood culture x2 collected show E. Coli ESBL (2) Bacteremia due to Escherichia coli Current Visit: Yes Status: Acute Non contrast CT of ab/pel demonstrates gas within bladder Causative organism E. Coli He did have previous urine cultures positive for E. Coli ESBL on 09/01/17 and Patient has been seen by urology as outpatient but has missed multiple recent visits Currently on Ertapenem day 4 Was initially on Meropenem which was switched to Ertapenem 10/06 Vancomycin stopped on 10/06 as wound care was not concerned for osteomyelitis He did receive 2 doses of Zosyn since admission Urine and blood cultures did grow out E. 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 Plan as above with antibiotic regimen (4) Pressure ulcer of coccygeal region Current Visit: No Status: Acute Unstageable sacral ulcer currently being follow by wound care Continue with current antibiotic regimen as above Qualifiers: Pressure ulcer stage: unstageable Qualified Code(s): L89.150 - Pressure ulcer of sacral region, unstageable (5) Pressure ulcer of ankle, right, unstageable Current Visit: No Status: Acute Plan as above (6) Leukocytosis Current Visit: Yes Status: Acute White count initially 14 upon arrival but increased to 33 This morning down to 11 He did receive 100 mg of Solu-cortef in the ED Currently on antibiotic regimen as above Continue to trend CBC Qualifiers: Leukocytosis type: unspecified Qualified Code(s): D72.829 - Elevated white blood cell count, unspecified (7) Diabetes mellitus Current Visit: No Status: Chronic Patient's accucheck upon arrival to ED was 130 Doubt hypoglycemia was cause of his altered mental status SSI and accuchecks per primary team Qualifiers: Diabetes mellitus type: type 2 Diabetes mellitus senior living insulin use: without senior living use Diabetes mellitus complication status: with kidney complications Diabetes mellitus complication detail: with chronic kidney disease Chronic kidney disease stage: stage 3 (moderate) Qualified Code(s): E11.22 - Type 2 diabetes mellitus with diabetic chronic kidney disease; N18.3 - Chronic kidney disease, stage 3 (moderate) (8) CKD (chronic kidney disease) Current Visit: No Status: Chronic Qualifiers: Chronic kidney disease stage: stage 3 (moderate) Qualified Code(s): N18.3 - Chronic kidney disease, stage 3 (moderate) (9) Hypertension Current Visit: No Status: Chronic Qualifiers: Hypertension type: unspecified Qualified Code(s): I10 - Essential (primary ) hypertension (10) History of DVT (deep vein thrombosis) Current Visit: Yes Status: Acute (11) Systolic heart failure Current Visit: Yes Status: Chronic Qualifiers: Heart failure chronicity: acute on chronic Qualified Code(s): I50.23 - Acute on chronic systolic (congestive) heart failure - Subjective Interval history: Pt seen and examined. He is doing well this morning and states his breathing is fine. Denies any chest pain, fever, nausea, vomiting. He did endorse several episodes of diarrhea yesterday and also has a non-productive cough but feels like he has phlegm. Infect Dis PN-Objective Data - Labs CBC & Chem 7: 10/09/17 03:07 10/09/17 03:07 Labs: Laboratory Results - last 24 hr 10/08/17 10/08/17 10/08/17 11:05 15:49 20:00 WBC RBC Hgb Hct MCV MCH MCHC RDW Plt Count MPV Immature Gran % Seg Neutrophils % Lymphocytes % Monocytes % Eosinophils % Basophils % Neutrophils # Lymphocytes # Monocytes # Eosinophils # Basophils # Nucleated RBCs/100 WBC Sodium Potassium Chloride Carbon Dioxide BUN Creatinine Est GFR ( Amer) Est GFR (Non-Af Amer) BUN/Creatinine Ratio Glucose POC Glucose 206 H 158 H 180 H Calculated Osmolality Calcium 10/09/17 10/09/17 10/09/17 03:07 03:07 07:35 WBC 11.0 RBC 3.32 L Hgb 10.1 L Hct 31.4 L MCV 94.6 MCH 30.4 MCHC 32.2 RDW 14.6 H Plt Count 135 L MPV 9.9 Immature Gran % 3.5 Seg Neutrophils % 78.0 Lymphocytes % 5.5 Monocytes % 8.3 Eosinophils % 4.3 Basophils % 0.4 Neutrophils # 8.6 Lymphocytes # 0.6 Monocytes # 0.9 Eosinophils # 0.5 Basophils # 0.0 Nucleated RBCs/100 WBC 0.5 H Sodium 132 L Potassium 4.4 Chloride 97 L Carbon Dioxide 26 BUN 81 H Creatinine 1.46 H Est GFR ( Amer) 56 L Est GFR (Non-Af Amer) 46 L BUN/Creatinine Ratio 55 H Glucose 97 POC Glucose 119 H Calculated Osmolality 298 Calcium 7.7 L Cultures: Cultures 10/07/17 04:25 Blood Culture - Preliminary Peripheral Venipuncture No growth. 10/07/17 04:31 Blood Culture - Preliminary Peripheral Venipuncture No growth. 10/04/17 16:00 Sputum Culture - Final Sputum 10/04/17 10:05 Legionella Antigen - Final Urine,Clean Catch Streptococcus pneumoniae Antigen (M - Final Serology 10/05/17 10/04/17 Range/Units 18:36 15:40 Nasal Screen MRSA (PCR) Positive A (Negative) Chlamy pneumoniae PCR Not Detected (Not Detect) Adenovirus (PCR) Not Detected (Not Detect) B. pertussis DNA (PCR) Not Detected (Not Detect) B.parapertussis DNA PCR Not Detected (Not Detect) Coronavirus OC43 (PCR) Not Detected (Not Detect) Coronavirus HKU1 (PCR) Not Detected (Not Detect) Coronavirus 229E (PCR) Not Detected (Not Detect) Coronavirus NL63 (PCR) Not Detected (Not Detect) Human Metapneumovir PCR Not Detected (Not Detect) Influenza A (H1) PCR Not Detected (Not Detect) Influenza A (H3) PCR Not Detected (Not Detect) Influenza Type B (PCR) Not Detected (Not Detect) M.pneumoniae DNA (PCR) Not Detected (Not Detect) Parainfluenza 1 (PCR) Not Detected (Not Detect) Parainfluenza 2 (PCR) Not Detected (Not Detect) Parainfluenza 3 (PCR) Not Detected (Not Detect) Parainfluenza 4 (PCR) Not Detected (Not Detect) RSV (PCR) Not Detected (Not Detect) Entero/Rhino (PCR) DETECTED A (Not Detect) - Impressions Impressions Abdomen/Pelvis CT 10/04/17 17:00 IMPRESSION: 1. Cardiomegaly with trace bilateral pleural effusions and diffuse anasarca, presumed related to congestive heart failure. Mild interstitial pulmonary edema may be present. 2. Extensive opacities are present in the lower lobes, which could be related to pneumonia and/or atelectasis (examination was performed in the expiratory phase). 3. Bethea catheter tip and balloon are present within the prostate. Air is present in the bladder lumen. Moderately enlarged prostate. 4. Gallstones with mild nonspecific distention of the gallbladder. No findings specific for acute cholecystitis are seen. 5. A 2.1 cm nodule is suspected in the right lobe of the thyroid. Further evaluation with thyroid ultrasound on a nonemergent basis is recommended as clinically indicated. Critical results were called by Dr. Kraig Mcneil MD to Dr. Patton On 10/04/2017 at 6:16 p.m. D/ /04/2017 18:18:01 Kraig Mcneil MD / alana Interpreting Provider: Kraig Mcneil MD Chest CT 10/04/17 17:00 IMPRESSION: 1. Cardiomegaly with trace bilateral pleural effusions and diffuse anasarca, presumed related to congestive heart failure. Mild interstitial pulmonary edema may be present. 2. Extensive opacities are present in the lower lobes, which could be related to pneumonia and/or atelectasis (examination was performed in the expiratory phase). 3. Bethea catheter tip and balloon are present within the prostate. Air is present in the bladder lumen. Moderately enlarged prostate. 4. Gallstones with mild nonspecific distention of the gallbladder. No findings specific for acute cholecystitis are seen. 5. A 2.1 cm nodule is suspected in the right lobe of the thyroid. Further evaluation with thyroid ultrasound on a nonemergent basis is recommended as clinically indicated. Critical results were called by Dr. Kraig Mcneil MD to Dr. Patton On 10/04/2017 at 6:16 p.m. D/ /04/2017 18:18:01 Kraig Mcneil MD / alana Interpreting Provider: Kraig Mcneil MD Exam - Constitutional Vitals: Temp Pulse Resp BP Pulse Ox 97.9 F 88 15 84/64 92 10/09/17 07:58 10/09/17 09:00 10/09/17 09:00 10/09/17 09:00 10/09/17 09:00 General appearance: cooperative, no acute distress - Head Head exam: Present: atraumatic, normocephalic - Respiratory Respiratory exam: Present: decreased breath sounds. Absent: respiratory distress - Cardiovascular Cardiovascular exam: Present: RRR. Absent: irregular rhythm, tachycardia - GI/Abdominal GI/Abdominal exam: Present: normal bowel sounds, soft. Absent: tenderness - Extremities Exam Extremities exam: Present: pedal edema - VTE Documentation of Mechanical Device: Intermittent pneumatic compression device Consult Discharge Plan - Plan Referrals: Radha Jones, OCCUPATIONAL HEALTH NURSE [Primary Care Provider] - - Attending Attestation I examined this patient and my medical decision-making was reviewed with the Resident Physician. I agree with the documented findings, disposition and treatment plan as described except to the extent set forth below.
[2017-10-09] MEDS: *HR* OxyCODONE/APAP 5/325 TABLET PO PRN (15:50)
[2017-10-09] MEDS: Norepinephrine 4 MG in D5% in Water 250 ML IVC SCH (16:07)
[2017-10-09] MEDS: FentaNYL (PF) 1,000 MCG in 0.9 % Sodium Chloride 80 ML IVC SCH (16:07)
[2017-10-10] MEDS: Ipratropium/Albuterol Neb 3 ML IH SCH ×4 (03:36→22:44)
[2017-10-10] MEDS: Phenylephrine 20 MG in D5% in Water 250 ML IVC SCH ×2 (04:00→11:48)
[2017-10-10 04:32] LABS: Basophils % 0.3 %; Eosinophils # 0.3 K/mcL (0.0-0.6); Eosinophils % 2.6 %; Hematocrit 31.6 % (37.5-50.1); Hemoglobin 10.3 g/dL (12.9-16.9); Immature Granulocytes % 3.1 % (0-4); Lymphocytes # 0.8 K/mcL (0.6-4.6); Lymphocytes % 7.5 %; Mean Corpuscular HGB Conc 32.6 g/dL (31.6-35.5); Mean Corpuscular Hemoglobin 30.5 pg (28.0-33.3); Mean Corpuscular Volume 93.5 fL (83.0-100.0); Mean Platelet Volume 9.6 fL (9.4-12.4); Monocytes # 0.9 K/mcL (0.0-1.3); Monocytes % 7.7 %; Neutrophils # 8.9 K/mcL (1.6-8.9); Platelet Count 171 K/mcL (140-400); Red Blood Count 3.38 M/mcL (4.19-5.50); Red Cell Distribution Width 14.6 % (11.5-14.5); Segmented Neutrophils % 78.8 %
[2017-10-10 04:53] LABS: Calcium 7.7 mg/dL (8.6-10.3); Potassium 4.4 mEq/L (3.5-5.1)
--- NOTE | 2017-10-10 07:22 | Pulmonology Progress Note ---
<BenMo W - Last Filed: 10/10/17 10:45> Date of Encounter: 10/10/17 Objective PUL Vital signs: Last Vital Signs Temp 98.1 F 10/10/17 04:25 Pulse 100 10/10/17 07:25 Resp 23 10/10/17 07:25 BP 98/71 10/10/17 07:25 Pulse Ox 99 10/10/17 07:25 Results - Laboratory Findings CBC and BMP: 10/10/17 04:00 10/10/17 04:00 ABG ABG pH 7.40 pH Units (7.32-7.45) 10/06/17 04:56 ABG pCO2 43 mmHg (35-45) 10/06/17 04:56 ABG pO2 68 mmHg (85-104) L 10/06/17 04:56 ABG O2 Saturation 93 % (95-98) L 10/06/17 04:56 PT/INR, D-dimer PT 17.9 Seconds (9.4-12.1) H 10/03/17 19:14 Abnormal lab findings: Abnormal lab results WBC 11.2 K/mcL (4.3-11.1) H 10/10/17 04:00 RBC 3.38 M/mcL (4.19-5.50) L 10/10/17 04:00 Hgb 10.3 g/dL (12.9-16.9) L 10/10/17 04:00 Hct 31.6 % (37.5-50.1) L 10/10/17 04:00 RDW 14.6 % (11.5-14.5) H 10/10/17 04:00 Nucleated RBCs/100 WBC 0.5 /100 WBC (0) H 10/09/17 03:07 Toxic Granulation Present (Not Present) A 10/05/17 03:50 Dohle Bodies Present (Not Present) A 10/03/17 19:14 Polychromasia 1+ (Not Present) A 10/03/17 19:14 ESR 107 mm/hr (0-10) H 10/10/17 04:00 PT 17.9 Seconds (9.4-12.1) H 10/03/17 19:14 ABG pO2 68 mmHg (85-104) L 10/06/17 04:56 ABG Total CO2 27 mEq/L (20-26) H 10/06/17 04:56 ABG O2 Saturation 93 % (95-98) L 10/06/17 04:56 Sodium 131 mEq/L (136-145) L 10/10/17 04:00 Chloride 96 mEq/L (98-107) L 10/10/17 04:00 BUN 87 mg/dL (8-23) H 10/10/17 04:00 Creatinine 1.58 mg/dL (0.70-1.30) H 10/10/17 04:00 Est GFR ( Amer) 51 (> 60) L 10/10/17 04:00 Est GFR (Non-Af Amer) 42 (> 60) L 10/10/17 04:00 BUN/Creatinine Ratio 55 (6-26) H 10/10/17 04:00 Glucose 157 mg/dL (70-105) H 10/10/17 04:00 POC Glucose 158 mg/dL (70-99) H 10/10/17 07:38 Calculated Osmolality 302 (280-300) H 10/10/17 04:00 Calcium 7.7 mg/dL (8.6-10.3) L 10/10/17 04:00 Venous Ioniz Calcium 1.07 mmol/L (1.15-1.35) L 10/06/17 05:18 Phosphorus 4.7 mg/dL (2.7-4.5) H 10/06/17 04:50 Iron < 10 mcg/dL (65-175) L 10/04/17 00:30 Transferrin 86 mg/dL (203-362) L 10/04/17 00:30 Ferritin 1262 ng/mL (20-250) H 10/04/17 00:30 AST 41 Units/L (13-39) H 10/03/17 19:14 Alkaline Phosphatase 271 Units/L (34-104) H 10/03/17 19:14 Troponin I 0.50 ng/mL (< 0.04) H* 10/04/17 05:50 C-Reactive Protein 144 mg/L (Less than 10) H 10/10/17 04:00 B-Natriuretic Peptide 1124 pg/mL (Less than 100) H 10/03/17 19:14 Serum Total Protein 4.4 g/dL (6.4-8.9) L 10/03/17 19:14 Albumin 1.9 g/dL (3.5-5.7) L 10/03/17 19:14 Albumin/Globulin Ratio 0.8 (1.1-2.2) L 10/03/17 19:14 Urine Clarity Cloudy (Clear) A 10/03/17 18:11 Urine Protein 30 mg/dL (Neg-Trace) H 10/03/17 18:11 Urine Blood Large (Negative) H 10/03/17 18:11 Ur Leukocyte Esterase Large (Negative) H 10/03/17 18:11 Urine Microscopic RBC 15-30 per hpf (0-3) H 10/03/17 18:11 Urine Microscopic WBC 30-50 per hpf (0-3) H 10/03/17 18:11 Urine Bacteria Many per hpf (None-Few) H 10/03/17 18:11 Ur Culture Indicated? YES (NO) A 10/03/17 18:11 Nasal Screen MRSA (PCR) Positive (Negative) A 10/05/17 18:36 Vancomycin Trough 20 mcg/mL (5-10) H 10/05/17 18:13 Enterobacteriac sp PCR DETECTED (Not Detect) A 10/03/17 19:14 E. coli (PCR) DETECTED (Not Detect) A 10/03/17 19:14 Entero/Rhino (PCR) DETECTED (Not Detect) A 10/04/17 15:40 - Microbiology Findings Microbiology Findings: Microbiology, Last 48 Hours 10/07/17 04:25 Blood Culture - Preliminary Peripheral Venipuncture No growth. 10/07/17 04:31 Blood Culture - Preliminary Peripheral Venipuncture No growth. - Clinical Findings Intake & Output: Intake & Output 10/09/1718 10/10/17 23:59 07:59 15:59 Intake Total 75 / 75 125 / 125 Output Total 345 / 345 550 / 550 Balance -270 / -270 -425 / -425 Weight 134.9 kg Consult Discharge Plan - Plan Referrals: Radha Jones, AERODYNAMICS PROFESSOR [Primary Care Provider] - - Attending Attestation I examined this patient and my medical decision-making was reviewed with the Resident Physician. I agree with the documented findings, disposition and treatment plan as described except to the extent set forth below. We independently had [id number] contact with the patient Patient seen and examined at bedside Labs, radiology, chart personally reviewed. Management was reviewed during multidisciplinary critical care rounds. TOOL PROCUREMENT COORDINATOR: NO focal deficits. cont to monitor for delirium Pulm: Hypxoic respiratory failure improving excellent O2 sat on nasal cannula which we will wean. Cards: Hypotension on low dose phenylephrine likely comibation of intravascular volume depletion and sepsis. Dose Albumin today FEN-GI: ADAT Renal: Stable Renal function. cont to Monitor UOP ID: Cont ABx per ID recs which are greatly apprecaited Heme/Onc: Cont NOAC for LTA (VTE Hx) Endo: Glucose Monitored Integ/MSK: Skin Care per routine ICU Nursing Protocol to prevent ulcers. Lines: All lines examined without evidence of infection : Dispo: Remian in ICU for Vasopressor requirement. CODE: Full. <Armando Gonzales - Last Filed: 10/10/17 13:09> Date of Encounter: 10/10/17 Time of Encounter: 09:00 Assessment and Plan (1) Acute respiratory failure with hypoxia Current Visit: Yes Status: Acute Multifactorial with CHF exacerbation and HCAP. Off CPAP. Currently at 98% O2 on 2 L NC. - Discontinue nasal cannula. (2) Septic shock Current Visit: Yes Status: Acute Suspected sources include HCAP vs. UTI vs. pressure ulcers. Given recent abd CT finding of emphysematous cystitis, this is probably believed to be the source of the patient's sepsis. Blood cultures positive for E. Coli. ESBL on 10/03. Last blood culture negative on 10/07. Negative for Legionella. Urine culture positive for E. coli ESBL on 10/04. On Day 5 of ertapenem. On pressor support. - Continue to titrate phenylephrine. - Continue ertapenem. - Infectious disease following. - No IVF due to CHF exacerbation. 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 Last two abdominal CTs from 09/01/17 and 09/21/17 both demonstrated gas within bladder wall. Patient has been seen by urology as outpatient but has missed multiple recent visits. Urine culture positive for E. coli. Ertapenem (day 5). Abdominal CT shows bladder within normal limits. - Continue to monitor renal function and avoid nephrotoxins. - Continue antibiotics. (4) UTI (urinary tract infection) Current Visit: Yes Status: Acute Urine culture positive for E. coli ESBL. - Per urology: Patient well-known to urology service for recurrent urinary tract infections. No further treatment at this time. Only treat symptomatically infections. - continue ertapenem.. - Infecious disease following. 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 Patient did undergo greenlight surgery in past Dr. Lara. We will continue to follow up patient in hospital. (6) HCAP (healthcare-associated pneumonia) Current Visit: Yes Status: Acute Patient on ertapenem day 5. WBC count within normal limits. Sputum culture prelim shows trace gram positive cocci. Blood cultures positive for E. coli. ESBL on 10/03. No growth on 10/07. - Continue ertapenem. . (7) CHF exacerbation Current Visit: Yes Status: Acute Patient has same b/l pedal pitting edema compared to yesterday.Improving fluid balance: - 1078 fluid balance. BUN increased from 81 to 83. Creatinine around baseline. Last echo was on 07/16 with EF of 45%. Echocardiogram on 10/04/17 shows LVEF of 50-55%. Qualifiers: Heart failure type: systolic Qualified Code(s): I50.23 - Acute on chronic systolic (congestive) heart failure (8) Anemia Current Visit: No Status: Acute Hgb stable at 10.3. Likely secondary to chronic disease. Qualifiers: Anemia type: unspecified type Qualified Code(s): D64.9 - Anemia, unspecified (9) Diabetes mellitus Current Visit: No Status: Chronic Glucose of 157. - Continue insulin sliding scale. Qualifiers: Diabetes mellitus type: type 2 Diabetes mellitus alf insulin use: without alf use Diabetes mellitus complication status: with kidney complications Diabetes mellitus complication detail: with chronic kidney disease Chronic kidney disease stage: stage 3 (moderate) Qualified Code(s): E11.22 - Type 2 diabetes mellitus with diabetic chronic kidney disease; N18.3 - Chronic kidney disease, stage 3 (moderate) (10) CKD (chronic kidney disease) Current Visit: No Status: Chronic Creatinine baseline from 1.5-1.6. Currently at 1.58. Qualifiers: Chronic kidney disease stage: stage 3 (moderate) Qualified Code(s): N18.3 - Chronic kidney disease, stage 3 (moderate) (11) History of DVT (deep vein thrombosis) Current Visit: Yes Status: Acute On Eliquis 2.5 mg BID. (12) Pressure ulcer of coccygeal region Current Visit: No Status: Acute Per ID, cont with antibiotics. Wound care following. No concern for osteomyelitis per wound care. Qualifiers: Pressure ulcer stage: unstageable Qualified Code(s): L89.150 - Pressure ulcer of sacral region, unstageable (13) Pressure ulcer of ankle, right, unstageable Current Visit: No Status: Acute See plan above. (14) DVT prophylaxis Current Visit: No Status: Acute On Eliquis. Subjective Principal diagnosis: Septic shock, Acue respiratory failure Interval history: Patient denies any chest pain, shortness of breath, nausea, or vomiting. Admits to a dry cough. He does admit to some diffuse minor abdominal discomfort, however says that it has been improving since admission. Denies any fever or chills. Admits to bowel movements. Objective PUL Vital signs: Last Vital Signs Temp 98.1 F 10/10/17 04:25 Pulse 70 10/10/17 06:00 Resp 28 10/10/17 06:00 BP 92/52 10/10/17 06:00 Pulse Ox 98 10/10/17 06:00 General appearance: no acute distress Eyes: nonicteric ENT: oropharynx moist Neck: supple Auscultation: bilateral: rhonchi (Improved from yesterday.) Cardiovascular: regular rate and rhythm Gastrointestinal: normoactive bowel sounds, soft, tender (Minor diffuse tenderness with deep palpation), non-distended Integumentary: normal Extremities: no cyanosis, no clubbing, pink and warm, pulses normal, no ischemia or petechiae, edema (+3 B/L pedal pitting edema) Musculoskeletal: no deformities normal mental status mood appropriate, affect normal Results - Laboratory Findings CBC and BMP: 10/10/17 04:00 10/10/17 04:00 ABG ABG pH 7.40 pH Units (7.32-7.45) 10/06/17 04:56 ABG pCO2 43 mmHg (35-45) 10/06/17 04:56 ABG pO2 68 mmHg (85-104) L 10/06/17 04:56 ABG O2 Saturation 93 % (95-98) L 10/06/17 04:56 PT/INR, D-dimer PT 17.9 Seconds (9.4-12.1) H 10/03/17 19:14 Abnormal lab findings: Abnormal lab results WBC 11.2 K/mcL (4.3-11.1) H 10/10/17 04:00 RBC 3.38 M/mcL (4.19-5.50) L 10/10/17 04:00 Hgb 10.3 g/dL (12.9-16.9) L 10/10/17 04:00 Hct 31.6 % (37.5-50.1) L 10/10/17 04:00 RDW 14.6 % (11.5-14.5) H 10/10/17 04:00 Nucleated RBCs/100 WBC 0.5 /100 WBC (0) H 10/09/17 03:07 Toxic Granulation Present (Not Present) A 10/05/17 03:50 Dohle Bodies Present (Not Present) A 10/03/17 19:14 Polychromasia 1+ (Not Present) A 10/03/17 19:14 ESR 107 mm/hr (0-10) H 10/10/17 04:00 PT 17.9 Seconds (9.4-12.1) H 10/03/17 19:14 ABG pO2 68 mmHg (85-104) L 10/06/17 04:56 ABG Total CO2 27 mEq/L (20-26) H 10/06/17 04:56 ABG O2 Saturation 93 % (95-98) L 10/06/17 04:56 Sodium 131 mEq/L (136-145) L 10/10/17 04:00 Chloride 96 mEq/L (98-107) L 10/10/17 04:00 BUN 87 mg/dL (8-23) H 10/10/17 04:00 Creatinine 1.58 mg/dL (0.70-1.30) H 10/10/17 04:00 Est GFR ( Amer) 51 (> 60) L 10/10/17 04:00 Est GFR (Non-Af Amer) 42 (> 60) L 10/10/17 04:00 BUN/Creatinine Ratio 55 (6-26) H 10/10/17 04:00 Glucose 157 mg/dL (70-105) H 10/10/17 04:00 POC Glucose 209 mg/dL (70-99) H 10/09/17 19:47 Calculated Osmolality 302 (280-300) H 10/10/17 04:00 Calcium 7.7 mg/dL (8.6-10.3) L 10/10/17 04:00 Venous Ioniz Calcium 1.07 mmol/L (1.15-1.35) L 10/06/17 05:18 Phosphorus 4.7 mg/dL (2.7-4.5) H 10/06/17 04:50 Iron < 10 mcg/dL (65-175) L 10/04/17 00:30 Transferrin 86 mg/dL (203-362) L 10/04/17 00:30 Ferritin 1262 ng/mL (20-250) H 10/04/17 00:30 AST 41 Units/L (13-39) H 10/03/17 19:14 Alkaline Phosphatase 271 Units/L (34-104) H 10/03/17 19:14 Troponin I 0.50 ng/mL (< 0.04) H* 10/04/17 05:50 C-Reactive Protein 144 mg/L (Less than 10) H 10/10/17 04:00 B-Natriuretic Peptide 1124 pg/mL (Less than 100) H 10/03/17 19:14 Serum Total Protein 4.4 g/dL (6.4-8.9) L 10/03/17 19:14 Albumin 1.9 g/dL (3.5-5.7) L 10/03/17 19:14 Albumin/Globulin Ratio 0.8 (1.1-2.2) L 10/03/17 19:14 Urine Clarity Cloudy (Clear) A 10/03/17 18:11 Urine Protein 30 mg/dL (Neg-Trace) H 10/03/17 18:11 Urine Blood Large (Negative) H 06/05/18 18:11 Ur Leukocyte Esterase Large (Negative) H 10/03/17 18:11 Urine Microscopic RBC 15-30 per hpf (0-3) H 10/03/17 18:11 Urine Microscopic WBC 30-50 per hpf (0-3) H 10/03/17 18:11 Urine Bacteria Many per hpf (None-Few) H 10/03/17 18:11 Ur Culture Indicated? YES (NO) A 10/03/17 18:11 Nasal Screen MRSA (PCR) Positive (Negative) A 10/05/17 18:36 Vancomycin Trough 20 mcg/mL (5-10) H 10/05/17 18:13 Enterobacteriac sp PCR DETECTED (Not Detect) A 10/03/17 19:14 E. coli (PCR) DETECTED (Not Detect) A 10/03/17 19:14 Entero/Rhino (PCR) DETECTED (Not Detect) A 10/04/17 15:40 - Microbiology Findings Microbiology Findings: Microbiology, Last 48 Hours 10/07/17 04:25 Blood Culture - Preliminary Peripheral Venipuncture No growth. 10/07/17 04:31 Blood Culture - Preliminary Peripheral Venipuncture No growth. - Clinical Findings Intake & Output: Intake & Output 10/09/17 10/09/17 10/10/17 15:59 23:59 07:59 Intake Total 392 / 392 75 / 75 125 / 125 Output Total 425 / 425 345 / 345 550 / 550 Balance -33 / -33 -270 / -270 -425 / -425 Weight 134.9 kg - VTE Documentation of Mechanical Device: Intermittent pneumatic compression device
[2017-10-10] MEDS: Ertapenem 1,000 MG in 0.9 % Sodium Chloride Mini Bag 100 ML IVPB SCH (08:18)
[2017-10-10] MEDS: Apixaban 5 MG TABLET PO SCH ×2 (08:18→19:54)
[2017-10-10] MEDS: Pantoprazole 40 MG VIAL IVP SCH (08:19)
[2017-10-10] MEDS: Acetaminophen 325 MG TABLET PO SCH ×3 (08:19→19:54)
[2017-10-10] MEDS: Insulin LISPRO 300 UNITS/3 ML VIAL SQ SCH ×4 (08:20→23:25)
[2017-10-10] MEDS: Gabapentin 300 MG CAPSULE PO SCH ×2 (08:20→19:54)
[2017-10-10] MEDS: Benzonatate 100 MG CAPSULE PO SCH ×3 (08:20→19:54)
[2017-10-10] MEDS: Albumin 25% 25gram/100mL 25 GM/100 ML IV.SOLN IVPB SCH ×3 (09:24→14:01)
--- NOTE | 2017-10-10 10:37 | Infectious Disease Progress No ---
Date of Encounter: 10/10/17 Time of Encounter: 08:30 - Assessment and Plan (1) Septic shock Current Visit: Yes Status: Acute The patient had three SIRS criteria plus hypotension requiring vasopressors and acute respiratory failure and lactic acidosis. Likely secondary to bacteremia and UTI. Improved. WBC trending down. Acute respiratory failure and lactic acidosis have resolved. Still requiring vasopressors. Blood cultures drawn 10/03/17 are positive 2/2 sets for E. coli ESBL. Repeat blood cultures drawn 10/07/17 are NGTD x 2 sets. (2) Bacteremia due to Escherichia coli Current Visit: Yes Status: Acute Causative organism: E. coli ESBL. Source: likely the urine. Blood cultures drawn 10/03/17 are positive 2/2 sets for E. coli ESBL. Repeat blood cultures drawn 10/07/17 are NGTD x 2 sets. Continue Ertapenem 1 gram IV daily. Duration of treatment depends on the clinical picture. Monitor renal function and dose-adjust antibiotics. Continue contact precautions per protocol. 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 coli ESBL. Has a history of ESBL E. coli in the urine (06/2016, 08/2017, 09/29/2017). Well-known to [facility] team. 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 CT of the abdomen and pelvis completed air in the bladder lumen. Urology consulted and following. Continue antibiotics as above. Duration of treatment depends on the clinical picture. Bethea catheter placed 10/05/17 by the Urology team. (4) HCAP (healthcare-associated pneumonia) Current Visit: Yes Status: Acute Location: bilateral lower lobes. Causative organism likely viral. RIP positive for Enterovirus/Rhinovirus. CT of the chest completed 10/04/17 showed bilateral lower lobe opacities, likely related to pneumonia or atelectasis. Sputum culture is negative. S. pneumo and Legionella UAT negative. No further antibiotics required at this time. Continue Ertapenem for bacteremia and UTI as stated above. (5) Acute respiratory failure with hypoxia Current Visit: Yes Status: Acute Likely multifactorial: CHF + pneumonia. Resolved. Extubated 10/06/17. Further management per the pulmonology team. (6) Pressure ulcer of coccygeal region Current Visit: No Status: Acute Unstageable sacral ulcer currently being follow by wound care. Per wound care and nursing, clinically does not appear to be osteomyelitis, but ESR and CRP are elevated. Continue with current antibiotic regimen as above. Previous CT of the abdomen and pelvis did not reveal evidence of osteomyelitis. Qualifiers: Pressure ulcer stage: unstageable Qualified Code(s): L89.150 - Pressure ulcer of sacral region, unstageable (7) CKD (chronic kidney disease) Current Visit: No Status: Chronic Qualifiers: Chronic kidney disease stage: stage 3 (moderate) Qualified Code(s): N18.3 - Chronic kidney disease, stage 3 (moderate) (8) Diabetes mellitus Current Visit: No Status: Chronic Patient's accucheck upon arrival to ED was 130. Doubt hypoglycemia was cause of his altered mental status. SSI and accuchecks per primary team. Qualifiers: Diabetes mellitus type: type 2 Diabetes mellitus marine oil terminal superintendent insulin use: without marine oil terminal superintendent use Diabetes mellitus complication status: with kidney complications Diabetes mellitus complication detail: with chronic kidney disease Chronic kidney disease stage: stage 3 (moderate) Qualified Code(s): E11.22 - Type 2 diabetes mellitus with diabetic chronic kidney disease; N18.3 - Chronic kidney disease, stage 3 (moderate) (9) History of DVT (deep vein thrombosis) Current Visit: Yes Status: Acute (10) Hypertension Current Visit: No Status: Chronic Qualifiers: Hypertension type: unspecified Qualified Code(s): I10 - Essential (primary ) hypertension (11) Systolic heart failure Current Visit: Yes Status: Chronic Qualifiers: Heart failure chronicity: acute on chronic Qualified Code(s): I50.23 - Acute on chronic systolic (congestive) heart failure - Subjective Interval history: Patient seen and examined. No acute events noted overnight. Patient sitting up in bed, eating breakfast. Denies acute complaints. States overall he feels okay. Denies fevers, chills, or rigors. Reports a moist, non-productive cough. Denies chest pain or shortness of breath. Denies nausea, vomiting, or diarrhea. Denies abdominal pain. States appetite is good. Bethea catheter remains patent. Denies oral thrush or new skin lesions. Per nursing, still on vasopressors, but weaning down. Infect Dis PN-Objective Data - Labs CBC & Chem 7: 10/10/17 04:00 10/10/17 04:00 Labs: Laboratory Results - last 24 hr 10/09/17 10/09/17 10/09/17 11:38 15:58 19:47 WBC RBC Hgb Hct MCV MCH MCHC RDW Plt Count MPV Immature Gran % Seg Neutrophils % Lymphocytes % Monocytes % Eosinophils % Basophils % Neutrophils # Lymphocytes # Monocytes # Eosinophils # Basophils # ESR Sodium Potassium Chloride Carbon Dioxide BUN Creatinine Est GFR ( Amer) Est GFR (Non-Af Amer) BUN/Creatinine Ratio Glucose POC Glucose 181 H 242 H 209 H Calculated Osmolality Calcium C-Reactive Protein 10/10/17 10/10/17 10/10/17 04:00 04:00 04:00 WBC 11.2 H RBC 3.38 L Hgb 10.3 L Hct 31.6 L MCV 93.5 MCH 30.5 MCHC 32.6 RDW 14.6 H Plt Count 171 MPV 9.6 Immature Gran % 3.1 Seg Neutrophils % 78.8 Lymphocytes % 7.5 Monocytes % 7.7 Eosinophils % 2.6 Basophils % 0.3 Neutrophils # 8.9 Lymphocytes # 0.8 Monocytes # 0.9 Eosinophils # 0.3 Basophils # 0.0 ESR 107 H Sodium 131 L Potassium 4.4 Chloride 96 L Carbon Dioxide 23 BUN 87 H Creatinine 1.58 H Est GFR ( Amer) 51 L Est GFR (Non-Af Amer) 42 L BUN/Creatinine Ratio 55 H Glucose 157 H POC Glucose Calculated Osmolality 302 H Calcium 7.7 L C-Reactive Protein 144 H 10/10/17 07:38 WBC RBC Hgb Hct MCV MCH MCHC RDW Plt Count MPV Immature Gran % Seg Neutrophils % Lymphocytes % Monocytes % Eosinophils % Basophils % Neutrophils # Lymphocytes # Monocytes # Eosinophils # Basophils # ESR Sodium Potassium Chloride Carbon Dioxide BUN Creatinine Est GFR ( Amer) Est GFR (Non-Af Amer) BUN/Creatinine Ratio Glucose POC Glucose 158 H Calculated Osmolality Calcium C-Reactive Protein Cultures: Cultures 10/07/17 04:25 Blood Culture - Preliminary Peripheral Venipuncture No growth. 10/07/17 04:31 Blood Culture - Preliminary Peripheral Venipuncture No growth. 10/04/17 16:00 Sputum Culture - Final Sputum 10/04/17 10:05 Legionella Antigen - Final Urine,Clean Catch Streptococcus pneumoniae Antigen (M - Final Serology 10/05/17 10/04/17 Range/Units 18:36 15:40 Nasal Screen MRSA (PCR) Positive A (Negative) Chlamy pneumoniae PCR Not Detected (Not Detect) Adenovirus (PCR) Not Detected (Not Detect) B. pertussis DNA (PCR) Not Detected (Not Detect) B.parapertussis DNA PCR Not Detected (Not Detect) Coronavirus OC43 (PCR) Not Detected (Not Detect) Coronavirus HKU1 (PCR) Not Detected (Not Detect) Coronavirus 229E (PCR) Not Detected (Not Detect) Coronavirus NL63 (PCR) Not Detected (Not Detect) Human Metapneumovir PCR Not Detected (Not Detect) Influenza A (H1) PCR Not Detected (Not Detect) Influenza A (H3) PCR Not Detected (Not Detect) Influenza Type B (PCR) Not Detected (Not Detect) M.pneumoniae DNA (PCR) Not Detected (Not Detect) Parainfluenza 1 (PCR) Not Detected (Not Detect) Parainfluenza 2 (PCR) Not Detected (Not Detect) Parainfluenza 3 (PCR) Not Detected (Not Detect) Parainfluenza 4 (PCR) Not Detected (Not Detect) RSV (PCR) Not Detected (Not Detect) Entero/Rhino (PCR) DETECTED A (Not Detect) Exam - Constitutional Vitals: Temp Pulse Resp BP Pulse Ox 97.7 F 113 23 89/62 97 10/10/17 08:00 10/10/17 09:15 10/10/17 09:42 10/10/17 09:15 10/10/17 09:42 General appearance: cooperative, no acute distress, obese - Head Head exam: Present: atraumatic, normal inspection, normocephalic - Eye Eye exam: Present: EOMI, normal appearance, PERRL Pupils: Present: normal accommodation - ENT ENT exam: Present: mucous membranes moist - Neck Neck exam: Present: normal inspection - Respiratory Respiratory exam: Present: CTAB. Absent: rales, respiratory distress, rhonchi, wheezes - Cardiovascular Cardiovascular exam: Present: irregular rhythm, tachycardia - GI/Abdominal GI/Abdominal exam: Present: normal bowel sounds, soft. Absent: distended, tenderness Additional comments: Bethea catheter noted to be draining clear yellow urine. - Extremities Exam Extremities exam: Present: pedal edema (2+ BLE). Absent: joint swelling, tenderness Additional comments: Heel boots noted to the BLE. - Neurological Exam Neurological exam: Present: alert, oriented X3, no focal deficits - Psychiatric Psychiatric exam: Present: normal affect, normal mood - Skin Skin exam: Present: dry, intact, normal color, warm - VTE Documentation of Mechanical Device: Intermittent pneumatic compression device Consult Discharge Plan - Plan Referrals: Radha Jones, CATTLE ALLEY WORKER [Primary Care Provider] - - Attending Attestation I examined this patient and my medical decision-making was reviewed with the Resident Physician. I agree with the documented findings, disposition and treatment plan as described except to the extent set forth below.
--- NOTE | 2017-10-10 15:37 | Event Note ---
Date of Encounter: 10/10/17 Time of Encounter: 15:35 code status is established and the patient does wish to have aggressive care at least at this time. Patient and medical power of professional wrestler are in complete agreement on this, and patient is awake and alert and able to say for himself he wishes to be full code and have aggressive care. Palliative Care has been following at a distance and not placed a note on the chart in 7 days although we have been reviewing the chart thoroughly each day. At this point it appears we really do not have anything further to offer we will sign off please feel free to reconsult if we can help in any way.
[2017-10-11] MEDS: Phenylephrine 20 MG in D5% in Water 250 ML IVC SCH ×2 (00:13→15:43)
[2017-10-11] MEDS: Ipratropium/Albuterol Neb 3 ML IH SCH ×4 (03:49→22:02)
[2017-10-11 04:05] LABS: Basophils % 0.3 %; Eosinophils # 0.2 K/mcL (0.0-0.6); Eosinophils % 2.1 %; Hematocrit 27.1 % (37.5-50.1); Immature Granulocytes % 2.1 % (0-4); Lymphocytes # 0.5 K/mcL (0.6-4.6); Lymphocytes % 5.6 %; Mean Corpuscular HGB Conc 33.2 g/dL (31.6-35.5); Mean Corpuscular Hemoglobin 31.1 pg (28.0-33.3); Mean Corpuscular Volume 93.8 fL (83.0-100.0); Mean Platelet Volume 9.3 fL (9.4-12.4); Monocytes # 0.6 K/mcL (0.0-1.3); Monocytes % 6.6 %; Neutrophils # 7.9 K/mcL (1.6-8.9); Platelet Count 135 K/mcL (140-400); Red Blood Count 2.89 M/mcL (4.19-5.50); Red Cell Distribution Width 14.7 % (11.5-14.5); Segmented Neutrophils % 83.3 %
[2017-10-11 04:22] LABS: Calcium 7.7 mg/dL (8.6-10.3); Potassium 3.9 mEq/L (3.5-5.1)
[2017-10-11] MEDS: Norepinephrine 4 MG in D5% in Water 250 ML IVC SCH (07:20)
[2017-10-11] MEDS: FentaNYL (PF) 1,000 MCG in 0.9 % Sodium Chloride 80 ML IVC SCH (07:21)
--- NOTE | 2017-10-11 08:07 | Pulmonology Progress Note ---
Date of Encounter: 10/11/17 Time of Encounter: 08:07 Assessment and Plan (1) Hypotension Current Visit: Yes Status: Acute Patient seen and examined at bedside Labs, radiology, chart personally reviewed. Management was reviewed during multidisciplinary critical care rounds. CLOUD SOFTWARE ENGINEER: The patient is awake and alert without focal neurological deficit. We will continue to monitor for delirium and continued to avoid sensory deprivation and focus on establishment/denominational of sleep-wake cycle Pulm: Acute respiratory failure with hypoxia the patient is doing well today he is on BiPAP overnight which is appropriate for his underlying obesity and suspected sleep apnea. He has been able to tolerate nasal cannula approximately 2 L during the day. There is evidence of hydrostatic pulmonary edema Cards: He remains hypertensive. Mean arterial pressure been generally greater than 60 his been able to be weaned off the low-dose phenylephrine given tenuous blood pressure I will start 5 mg of Midrin 3 times a day he remains total body volume overloaded but I suspect intravascularly dry. He did receive albumin challenge yesterday. As tolerated by blood pressure I would resume gentle diuresis FEN-GI: Advance diet as tolerated Renal: Patient has acute on chronic kidney disease and has serum creatinine is back to baseline we will continue to monitor this daily and measure urine output along with trend electrolytes daily basis ID: The patient has recurrent Escherichia coli infection and infectious disease is following this case his being treated with ertapenem white count is stable and he remains afebrile Heme/Onc: cont Eliquis for LTA with Afib H/H is stable Endo: Glucose Monitored and his acceptable range Integ/MSK: Skin Care per routine ICU Nursing Protocol to prevent ulcers. Patient has chronic decubitus ulcers for which he is been followed by wound care Lines: All lines examined without evidence of infection : Dispo: Stable for transfer out of ICU to [facility] telemetry for ongoing care and blood pressure remained stable through the course of the morning CODE: Full patient has been evaluated by palliative care service is clear disease and he did not want long-term aggressive care but is satisfied with current level of care Qualifiers: Hypotension type: unspecified hypotension type Qualified Code(s): I95.9 - Hypotension, unspecified (2) Acute kidney injury superimposed on chronic kidney disease Current Visit: No Status: Acute (3) Volume overload Current Visit: Yes Status: Acute Qualifiers: Hypervolemia type: other Qualified Code(s): E87.79 - Other fluid overload (4) Systolic heart failure Current Visit: Yes Status: Chronic Qualifiers: Heart failure chronicity: acute on chronic Qualified Code(s): I50.23 - Acute on chronic systolic (congestive) heart failure (5) Acute respiratory failure with hypoxia Current Visit: Yes Status: Acute (6) Goals of care, counseling/discussion Current Visit: Yes Status: Acute (7) Bacteremia due to Escherichia coli Current Visit: Yes Status: Acute Subjective Principal diagnosis: Septic shock, Acue respiratory failure Interval history: No acute events overnight. His been able to be weaned off the phenylephrine this morning. Blood pressure still on the low side however but map generally greater than 60 with systolics in the 80s. He does not have any complaints is able to tolerate diet. He wore BiPAP overnight without issue Objective PUL Vital signs: Last Vital Signs Temp 97.6 F 10/11/17 07:10 Pulse 91 10/11/17 06:00 Resp 20 10/11/17 06:00 BP 91/55 10/11/17 06:00 Pulse Ox 98 10/11/17 06:00 General appearance: no acute distress Eyes: nonicteric ENT: oropharynx moist Neck: supple Effort: normal Auscultation: bilateral: clear, rales (In the lung bases) Cardiovascular: regular rate and rhythm Gastrointestinal: normoactive bowel sounds, soft, non-tender Integumentary: decubitus ulcer, other (No evidence of new rash or ecchymotic changes) Extremities: anasarca Musculoskeletal: no deformities normal mental status, non-focal exam mood appropriate Results - Laboratory Findings CBC and BMP: 10/11/17 03:45 10/11/17 03:45 ABG ABG pH 7.40 pH Units (7.32-7.45) 10/06/17 04:56 ABG pCO2 43 mmHg (35-45) 10/06/17 04:56 ABG pO2 68 mmHg (85-104) L 10/06/17 04:56 ABG O2 Saturation 93 % (95-98) L 10/06/17 04:56 PT/INR, D-dimer PT 17.9 Seconds (9.4-12.1) H 10/03/17 19:14 Abnormal lab findings: Abnormal lab results RBC 2.89 M/mcL (4.19-5.50) L 10/11/17 03:45 Hgb 9.0 g/dL (12.9-16.9) L 10/11/17 03:45 Hct 27.1 % (37.5-50.1) L 10/11/17 03:45 RDW 14.7 % (11.5-14.5) H 10/11/17 03:45 Plt Count 135 K/mcL (140-400) L 10/11/17 03:45 MPV 9.3 fL (9.4-12.4) L 10/11/17 03:45 Lymphocytes # 0.5 K/mcL (0.6-4.6) L 10/11/17 03:45 Nucleated RBCs/100 WBC 0.5 /100 WBC (0) H 10/09/17 03:07 Toxic Granulation Present (Not Present) A 10/05/17 03:50 Dohle Bodies Present (Not Present) A 10/03/17 19:14 Polychromasia 1+ (Not Present) A 10/03/17 19:14 ESR 107 mm/hr (0-10) H 10/10/17 04:00 PT 17.9 Seconds (9.4-12.1) H 10/03/17 19:14 ABG pO2 68 mmHg (85-104) L 10/06/17 04:56 ABG Total CO2 27 mEq/L (20-26) H 10/06/17 04:56 ABG O2 Saturation 93 % (95-98) L 10/06/17 04:56 Sodium 131 mEq/L (136-145) L 10/11/17 03:45 Chloride 97 mEq/L (98-107) L 10/11/17 03:45 BUN 84 mg/dL (8-23) H 10/11/17 03:45 Creatinine 1.42 mg/dL (0.70-1.30) H 10/11/17 03:45 Est GFR ( Amer) 57 (> 60) L 10/11/17 03:45 Est GFR (Non-Af Amer) 47 (> 60) L 10/11/17 03:45 BUN/Creatinine Ratio 59 (6-26) H 10/11/17 03:45 Glucose 160 mg/dL (70-105) H 10/11/17 03:45 POC Glucose 168 mg/dL (70-99) H 10/11/17 07:09 Calculated Osmolality 301 (280-300) H 10/11/17 03:45 Calcium 7.7 mg/dL (8.6-10.3) L 10/11/17 03:45 Venous Ioniz Calcium 1.07 mmol/L (1.15-1.35) L 10/06/17 05:18 Phosphorus 4.7 mg/dL (2.7-4.5) H 10/06/17 04:50 Iron < 10 mcg/dL (65-175) L 10/04/17 00:30 Transferrin 86 mg/dL (203-362) L 10/04/17 00:30 Ferritin 1262 ng/mL (20-250) H 10/04/17 00:30 AST 41 Units/L (13-39) H 10/03/17 19:14 Alkaline Phosphatase 271 Units/L (34-104) H 10/03/17 19:14 Troponin I 0.50 ng/mL (< 0.04) H* 10/04/17 05:50 C-Reactive Protein 144 mg/L (Less than 10) H 10/10/17 04:00 B-Natriuretic Peptide 1124 pg/mL (Less than 100) H 10/03/17 19:14 Serum Total Protein 4.4 g/dL (6.4-8.9) L 10/03/17 19:14 Albumin 1.9 g/dL (3.5-5.7) L 10/03/17 19:14 Albumin/Globulin Ratio 0.8 (1.1-2.2) L 10/03/17 19:14 Urine Clarity Cloudy (Clear) A 10/03/17 18:11 Urine Protein 30 mg/dL (Neg-Trace) H 10/03/17 18:11 Urine Blood Large (Negative) H 10/03/17 18:11 Ur Leukocyte Esterase Large (Negative) H 10/03/17 18:11 Urine Microscopic RBC 15-30 per hpf (0-3) H 10/03/17 18:11 Urine Microscopic WBC 30-50 per hpf (0-3) H 10/03/17 18:11 Urine Bacteria Many per hpf (None-Few) H 10/03/17 18:11 Ur Culture Indicated? YES (NO) A 10/03/17 18:11 Nasal Screen MRSA (PCR) Positive (Negative) A 10/05/17 18:36 Vancomycin Trough 20 mcg/mL (5-10) H 10/05/17 18:13 Enterobacteriac sp PCR DETECTED (Not Detect) A 10/03/17 19:14 E. coli (PCR) DETECTED (Not Detect) A 10/03/17 19:14 Entero/Rhino (PCR) DETECTED (Not Detect) A 10/04/17 15:40 - Clinical Findings Intake & Output: Intake & Output 10/10/17 10/11/17 10/11/17 23:59 07:59 15:59 Intake Total 712 / 712 Output Total 300 / 300 1075 / 1075 Balance 412 / 412 -1075 / -1075 Weight 136.4 kg - VTE Documentation of Mechanical Device: Intermittent pneumatic compression device Consult Discharge Plan - Plan Referrals: Radha Jones, WINDOWS SERVER ENGINEER [Primary Care Provider] -
[2017-10-11] MEDS: Apixaban 5 MG TABLET PO SCH ×2 (09:14→20:20)
[2017-10-11] MEDS: Acetaminophen 325 MG TABLET PO SCH ×3 (09:14→20:21)
[2017-10-11] MEDS: Pantoprazole 40 MG VIAL IVP SCH (09:14)
[2017-10-11] MEDS: Benzonatate 100 MG CAPSULE PO SCH ×3 (09:14→20:20)
[2017-10-11] MEDS: Gabapentin 300 MG CAPSULE PO SCH ×2 (09:15→20:20)
[2017-10-11] MEDS: Ertapenem 1,000 MG in 0.9 % Sodium Chloride Mini Bag 100 ML IVPB SCH (09:15)
[2017-10-11] MEDS: Insulin LISPRO 300 UNITS/3 ML VIAL SQ SCH ×4 (09:15→20:21)
--- NOTE | 2017-10-11 11:49 | Infectious Disease Progress No ---
Date of Encounter: 10/11/17 Time of Encounter: 11:47 - Assessment and Plan (1) Septic shock Current Visit: Yes Status: Acute The patient had three SIRS criteria plus hypotension requiring vasopressors and acute respiratory failure and lactic acidosis. Likely secondary to bacteremia and UTI. Improved. WBC trending down. Acute respiratory failure and lactic acidosis have resolved. Still requiring vasopressors. Blood cultures drawn 10/03/17 are positive 2/2 sets for E. coli ESBL. Repeat blood cultures drawn 10/07/17 are NGTD x 2 sets. (2) Bacteremia due to Escherichia coli Current Visit: Yes Status: Acute Causative organism: E. coli ESBL. Source: likely the urine. Blood cultures drawn 10/03/17 are positive 2/2 sets for E. coli ESBL. Repeat blood cultures drawn 10/07/17 are NGTD x 2 sets. Continue Ertapenem 1 gram IV daily. Duration of treatment depends on the clinical picture, but likely a total of 14 days. Can likely transition to PO Bactrim if/when the patient is ready for discharge. Monitor renal function and dose-adjust antibiotics. Continue contact precautions per protocol. 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 coli ESBL. Has a history of ESBL E. coli in the urine (06/2016, 08/2017, 09/29/2017). Well-known to [facility] team. 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 CT of the abdomen and pelvis completed air in the bladder lumen. Urology consulted and following. Continue antibiotics as above. Duration of treatment depends on the clinical picture. Bethea catheter placed 10/05/17 by the Urology team. (4) HCAP (healthcare-associated pneumonia) Current Visit: Yes Status: Acute Location: bilateral lower lobes. Causative organism likely viral. RIP positive for Enterovirus/Rhinovirus. CT of the chest completed 10/04/17 showed bilateral lower lobe opacities, likely related to pneumonia or atelectasis. Sputum culture is negative. S. pneumo and Legionella UAT negative. No further antibiotics required at this time. Continue Ertapenem for bacteremia and UTI as stated above. (5) Acute respiratory failure with hypoxia Current Visit: Yes Status: Acute Likely multifactorial: CHF + pneumonia. Resolved. Extubated 10/06/17. Further management per the pulmonology team. (6) Pressure ulcer of coccygeal region Current Visit: No Status: Acute Unstageable sacral ulcer currently being follow by wound care. Per wound care and nursing, clinically does not appear to be osteomyelitis, but ESR and CRP are elevated. Continue with current antibiotic regimen as above. Previous CT of the abdomen and pelvis did not reveal evidence of osteomyelitis. Qualifiers: Pressure ulcer stage: unstageable Qualified Code(s): L89.150 - Pressure ulcer of sacral region, unstageable (7) CKD (chronic kidney disease) Current Visit: No Status: Chronic Qualifiers: Chronic kidney disease stage: stage 3 (moderate) Qualified Code(s): N18.3 - Chronic kidney disease, stage 3 (moderate) (8) Diabetes mellitus Current Visit: No Status: Chronic Patient's accucheck upon arrival to ED was 130. Doubt hypoglycemia was cause of his altered mental status. SSI and accuchecks per primary team. Qualifiers: Diabetes mellitus type: type 2 Diabetes mellitus halfway insulin use: without middle or intermediate school principal use Diabetes mellitus complication status: with kidney complications Diabetes mellitus complication detail: with chronic kidney disease Chronic kidney disease stage: stage 3 (moderate) Qualified Code(s): E11.22 - Type 2 diabetes mellitus with diabetic chronic kidney disease; N18.3 - Chronic kidney disease, stage 3 (moderate) (9) History of DVT (deep vein thrombosis) Current Visit: Yes Status: Acute (10) Hypertension Current Visit: No Status: Chronic Qualifiers: Hypertension type: unspecified Qualified Code(s): I10 - Essential (primary ) hypertension (11) Systolic heart failure Current Visit: Yes Status: Chronic Qualifiers: Heart failure chronicity: acute on chronic Qualified Code(s): I50.23 - Acute on chronic systolic (congestive) heart failure - Subjective Interval history: Patient seen and examined. No acute events noted overnight. Patient sitting up in bed. Denies acute complaints. States overall he feels okay. Denies fevers, chills, or rigors. Reports a moist, non-productive cough. Denies chest pain or shortness of breath. Denies nausea, vomiting, or diarrhea, but states his abdomen is bloated. Denies abdominal pain. States appetite is good. Bethea catheter remains patent. Denies oral thrush or new skin lesions. Per nursing, still on vasopressors, but weaning down. Infect Dis PN-Objective Data - Labs CBC & Chem 7: 06/13/18 03:45 10/11/17 03:45 Labs: Laboratory Results - last 24 hr 10/10/17 10/11/17 10/11/17 16:45 03:45 03:45 WBC 9.5 RBC 2.89 L Hgb 9.0 L Hct 27.1 L MCV 93.8 MCH 31.1 MCHC 33.2 RDW 14.7 H Plt Count 135 L MPV 9.3 L Immature Gran % 2.1 Seg Neutrophils % 83.3 Lymphocytes % 5.6 Monocytes % 6.6 Eosinophils % 2.1 Basophils % 0.3 Neutrophils # 7.9 Lymphocytes # 0.5 L Monocytes # 0.6 Eosinophils # 0.2 Basophils # 0.0 Sodium 131 L Potassium 3.9 Chloride 97 L Carbon Dioxide 24 BUN 84 H Creatinine 1.42 H Est GFR ( Amer) 57 L Est GFR (Non-Af Amer) 47 L BUN/Creatinine Ratio 59 H Glucose 160 H POC Glucose 179 H Calculated Osmolality 301 H Calcium 7.7 L 10/11/17 10/11/17 07:09 11:28 WBC RBC Hgb Hct MCV MCH MCHC RDW Plt Count MPV Immature Gran % Seg Neutrophils % Lymphocytes % Monocytes % Eosinophils % Basophils % Neutrophils # Lymphocytes # Monocytes # Eosinophils # Basophils # Sodium Potassium Chloride Carbon Dioxide BUN Creatinine Est GFR ( Amer) Est GFR (Non-Af Amer) BUN/Creatinine Ratio Glucose POC Glucose 168 H 186 H Calculated Osmolality Calcium Cultures: Cultures 10/07/17 04:25 Blood Culture - Preliminary Peripheral Venipuncture No growth. 10/07/17 04:31 Blood Culture - Preliminary Peripheral Venipuncture No growth. 10/04/17 16:00 Sputum Culture - Final Sputum 10/04/17 10:05 Legionella Antigen - Final Urine,Clean Catch Streptococcus pneumoniae Antigen (M - Final Serology 10/05/17 10/04/17 Range/Units 18:36 15:40 Nasal Screen MRSA (PCR) Positive A (Negative) Chlamy pneumoniae PCR Not Detected (Not Detect) Adenovirus (PCR) Not Detected (Not Detect) B. pertussis DNA (PCR) Not Detected (Not Detect) B.parapertussis DNA PCR Not Detected (Not Detect) Coronavirus OC43 (PCR) Not Detected (Not Detect) Coronavirus HKU1 (PCR) Not Detected (Not Detect) Coronavirus 229E (PCR) Not Detected (Not Detect) Coronavirus NL63 (PCR) Not Detected (Not Detect) Human Metapneumovir PCR Not Detected (Not Detect) Influenza A (H1) PCR Not Detected (Not Detect) Influenza A (H3) PCR Not Detected (Not Detect) Influenza Type B (PCR) Not Detected (Not Detect) M.pneumoniae DNA (PCR) Not Detected (Not Detect) Parainfluenza 1 (PCR) Not Detected (Not Detect) Parainfluenza 2 (PCR) Not Detected (Not Detect) Parainfluenza 3 (PCR) Not Detected (Not Detect) Parainfluenza 4 (PCR) Not Detected (Not Detect) RSV (PCR) Not Detected (Not Detect) Entero/Rhino (PCR) DETECTED A (Not Detect) Exam - Constitutional Vitals: Temp Pulse Resp BP Pulse Ox 97.6 F 69 14 87/54 97 10/11/17 07:10 10/11/17 11:00 10/11/17 11:02 10/11/17 11:00 10/11/17 11:02 General appearance: cooperative, no acute distress, obese - Head Head exam: Present: atraumatic, normal inspection, normocephalic - Eye Eye exam: Present: EOMI, normal appearance, PERRL Pupils: Present: normal accommodation - ENT ENT exam: Present: mucous membranes moist - Neck Neck exam: Present: normal inspection - Respiratory Respiratory exam: Present: CTAB, rhonchi (Scattered). Absent: rales, respiratory distress, wheezes - Cardiovascular Cardiovascular exam: Present: irregular rhythm, tachycardia - GI/Abdominal GI/Abdominal exam: Present: distended, normal bowel sounds, soft. Absent: tenderness Additional comments: Bethea catheter noted to be draining clear yellow urine. - Extremities Exam Extremities exam: Present: pedal edema (2+ BLE). Absent: joint swelling, tenderness - Neurological Exam Neurological exam: Present: alert, oriented X3, no focal deficits - Psychiatric Psychiatric exam: Present: normal affect, normal mood - Skin Skin exam: Present: dry, intact, normal color, warm - VTE Documentation of Mechanical Device: Intermittent pneumatic compression device Consult Discharge Plan - Plan Referrals: Radha Jones, GEOTHERMAL PLANT MANAGER [Primary Care Provider] - - Attending Attestation I examined this patient and my medical decision-making was reviewed with the Resident Physician. I agree with the documented findings, disposition and treatment plan as described except to the extent set forth below.
[2017-10-11] MEDS ORDERED: Furosemide 20 MG/2 ML VIAL IVP ONE ×2 (15:38→15:40)
[2017-10-12] MEDS: Ipratropium/Albuterol Neb 3 ML IH SCH ×4 (04:30→21:35)
--- NOTE | 2017-10-12 07:53 | Pulmonology Progress Note ---
<Mo Contreras W - Last Filed: 10/12/17 10:43> Date of Encounter: 10/12/17 Assessment and Plan (1) Hypotension Current Visit: Yes Status: Acute Qualifiers: Hypotension type: unspecified hypotension type Qualified Code(s): I95.9 - Hypotension, unspecified (2) Acute kidney injury superimposed on chronic kidney disease Current Visit: No Status: Acute (3) Volume overload Current Visit: Yes Status: Acute Qualifiers: Hypervolemia type: other Qualified Code(s): E87.79 - Other fluid overload (4) Systolic heart failure Current Visit: Yes Status: Chronic Qualifiers: Heart failure chronicity: acute on chronic Qualified Code(s): I50.23 - Acute on chronic systolic (congestive) heart failure (5) Acute respiratory failure with hypoxia Current Visit: Yes Status: Acute (6) Goals of care, counseling/discussion Current Visit: Yes Status: Acute (7) Bacteremia due to Escherichia coli Current Visit: Yes Status: Acute Objective PUL Vital signs: Last Vital Signs Temp 96.6 F L 10/12/17 05:02 Pulse 71 10/12/17 07:00 Resp 22 10/12/17 07:00 BP 116/64 10/12/17 07:00 Pulse Ox 94 10/12/17 07:00 Results - Laboratory Findings CBC and BMP: 10/11/17 03:45 10/11/17 03:45 ABG ABG pH 7.40 pH Units (7.32-7.45) 10/06/17 04:56 ABG pCO2 43 mmHg (35-45) 10/06/17 04:56 ABG pO2 68 mmHg (85-104) L 10/06/17 04:56 ABG O2 Saturation 93 % (95-98) L 10/06/17 04:56 PT/INR, D-dimer PT 17.9 Seconds (9.4-12.1) H 10/03/17 19:14 Abnormal lab findings: Abnormal lab results RBC 2.89 M/mcL (4.19-5.50) L 10/11/17 03:45 Hgb 9.0 g/dL (12.9-16.9) L 10/11/17 03:45 Hct 27.1 % (37.5-50.1) L 10/11/17 03:45 RDW 14.7 % (11.5-14.5) H 10/11/17 03:45 Plt Count 135 K/mcL (140-400) L 10/11/17 03:45 MPV 9.3 fL (9.4-12.4) L 10/11/17 03:45 Lymphocytes # 0.5 K/mcL (0.6-4.6) L 10/11/17 03:45 Nucleated RBCs/100 WBC 0.5 /100 WBC (0) H 10/09/17 03:07 Toxic Granulation Present (Not Present) A 10/05/17 03:50 Dohle Bodies Present (Not Present) A 10/03/17 19:14 Polychromasia 1+ (Not Present) A 10/03/17 19:14 ESR 107 mm/hr (0-10) H 10/10/17 04:00 PT 17.9 Seconds (9.4-12.1) H 10/03/17 19:14 ABG pO2 68 mmHg (85-104) L 10/06/17 04:56 ABG Total CO2 27 mEq/L (20-26) H 10/06/17 04:56 ABG O2 Saturation 93 % (95-98) L 10/06/17 04:56 Sodium 131 mEq/L (136-145) L 10/11/17 03:45 Chloride 97 mEq/L (98-107) L 10/11/17 03:45 BUN 84 mg/dL (8-23) H 10/11/17 03:45 Creatinine 1.42 mg/dL (0.70-1.30) H 10/11/17 03:45 Est GFR ( Amer) 57 (> 60) L 10/11/17 03:45 Est GFR (Non-Af Amer) 47 (> 60) L 10/11/17 03:45 BUN/Creatinine Ratio 59 (6-26) H 10/11/17 03:45 Glucose 160 mg/dL (70-105) H 10/11/17 03:45 POC Glucose 135 mg/dL (70-99) H 10/12/17 07:51 Calculated Osmolality 301 (280-300) H 10/11/17 03:45 Calcium 7.7 mg/dL (8.6-10.3) L 10/11/17 03:45 Venous Ioniz Calcium 1.07 mmol/L (1.15-1.35) L 10/06/17 05:18 Phosphorus 4.7 mg/dL (2.7-4.5) H 10/06/17 04:50 Iron < 10 mcg/dL (65-175) L 10/04/17 00:30 Transferrin 86 mg/dL (203-362) L 10/04/17 00:30 Ferritin 1262 ng/mL (20-250) H 10/04/17 00:30 AST 41 Units/L (13-39) H 10/03/17 19:14 Alkaline Phosphatase 271 Units/L (34-104) H 10/03/17 19:14 Troponin I 0.50 ng/mL (< 0.04) H* 10/04/17 05:50 C-Reactive Protein 144 mg/L (Less than 10) H 10/10/17 04:00 B-Natriuretic Peptide 1124 pg/mL (Less than 100) H 10/03/17 19:14 Serum Total Protein 4.4 g/dL (6.4-8.9) L 10/03/17 19:14 Albumin 1.9 g/dL (3.5-5.7) L 10/03/17 19:14 Albumin/Globulin Ratio 0.8 (1.1-2.2) L 10/03/17 19:14 Urine Clarity Cloudy (Clear) A 10/03/17 18:11 Urine Protein 30 mg/dL (Neg-Trace) H 10/03/17 18:11 Urine Blood Large (Negative) H 10/03/17 18:11 Ur Leukocyte Esterase Large (Negative) H 10/03/17 18:11 Urine Microscopic RBC 15-30 per hpf (0-3) H 10/03/17 18:11 Urine Microscopic WBC 30-50 per hpf (0-3) H 10/03/17 18:11 Urine Bacteria Many per hpf (None-Few) H 10/03/17 18:11 Ur Culture Indicated? YES (NO) A 10/03/17 18:11 Nasal Screen MRSA (PCR) Positive (Negative) A 10/05/17 18:36 Vancomycin Trough 20 mcg/mL (5-10) H 10/05/17 18:13 Enterobacteriac sp PCR DETECTED (Not Detect) A 10/03/17 19:14 E. coli (PCR) DETECTED (Not Detect) A 10/03/17 19:14 Entero/Rhino (PCR) DETECTED (Not Detect) A 10/04/17 15:40 - Clinical Findings Intake & Output: Intake & Output 10/11/17 10/12/17 10/12/17 23:59 07:59 15:59 Intake Total 25 / 25 Output Total 1000 / 1000 300 / 300 Balance -975 / -975 -300 / -300 Weight 133.7 kg Consult Discharge Plan - Plan Referrals: Radha Jones, OFFICE MACHINE SERVICE SUPERVISOR [Primary Care Provider] - - Attending Attestation I examined this patient and my medical decision-making was reviewed with the Resident Physician. I agree with the documented findings, disposition and treatment plan as described except to the extent set forth below. We independently had [id number] contact with the patient Patient seen and examined at bedside Labs, radiology, chart personally reviewed. Management was reviewed during multidisciplinary critical care rounds. MORTGAGE CONSULTANT: Awake and alert no deficits Pulm: Hypoxic Respiratory failure. Tolerating nasal cannula.during the day PAP at night. Cards: BP stable off of vasopressor wean midodrine over next 2-3 days FEN-GI: ADAT Renal: UOP excellent cont diuretic. replace electrolytes ID: Ecoli Bactermia on Ertapenem. ID following Heme/Onc: DVT prophylaxis given Endo: Glucose Monitored Integ/MSK: Skin Care per routine ICU Nursing Protocol to prevent ulcers. cont wound care recs for sacral ulcers. Lines: All lines examined without evidence of infection : Dispo: Stable for transfer to [facility]/tel for ongoing care CODE: Full. <Armando Gonzales - Last Filed: 10/12/17 12:33> Date of Encounter: 10/12/17 Time of Encounter: 08:50 Assessment and Plan (1) Acute respiratory failure with hypoxia Current Visit: Yes Status: Acute Multifactorial with CHF exacerbation and HCAP. Currently at 94% O2 room air. Spoke to hospitalist Dr. Hardy who agreed to accept the patient to step-down unit. (2) Septic shock Current Visit: Yes Status: Resolved Suspected sources include HCAP vs. UTI vs. pressure ulcers. Given recent abd CT finding of emphysematous cystitis, this is probably believed to be the source of the patient's sepsis. Blood cultures positive for E. Coli. ESBL on 10/03. Last blood culture negative on 10/07. Negative for Legionella. Urine culture positive for E. coli ESBL on 10/04. On Day 7 of ertapenem. Off pressor support. - continue ertapenem. - Infectious disease following. - No IVF due to CHF exacerbation. 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 Last two abdominal CTs from 09/01/17 and 09/21/17 both demonstrated gas within bladder wall. Patient has been seen by urology as outpatient but has missed multiple recent visits. Urine culture positive for E. coli. Ertapenem (day 5). Abdominal CT shows bladder within normal limits. - Continue to monitor renal function and avoid nephrotoxins. - Continue antibiotics. (4) UTI (urinary tract infection) Current Visit: Yes Status: Acute Urine culture positive for E. coli ESBL. - Per urology: Patient well-known to urology service for recurrent urinary tract infections. No further treatment at this time. Only treat symptomatically infections. - continue ertapenem.. - Infecious disease following. 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 Patient did undergo greenlight surgery in past Dr. Lara. We will continue to follow up patient in hospital. (6) HCAP (healthcare-associated pneumonia) Current Visit: Yes Status: Acute Patient on ertapenem day 57. WBC count within normal limits. Sputum culture prelim shows trace gram positive cocci. Blood cultures positive for E. coli. ESBL on 10/03. No growth on 10/07. - Continue ertapenem. (7) CHF exacerbation Current Visit: Yes Status: Acute Patient has same b/l pedal pitting edema compared to yesterday.Improving fluid balance: - 1078 fluid balance. BUN increased from 81 to 83. Creatinine around baseline. Last echo was on 07/16 with EF of 45%. Echocardiogram on 10/04/17 shows LVEF of 50-55%. Qualifiers: Heart failure type: systolic Qualified Code(s): I50.23 - Acute on chronic systolic (congestive) heart failure (8) Diabetes mellitus Current Visit: No Status: Chronic . Qualifiers: Diabetes mellitus type: type 2 Diabetes mellitus roasterman insulin use: without roasterman use Diabetes mellitus complication status: with kidney complications Diabetes mellitus complication detail: with chronic kidney disease Chronic kidney disease stage: stage 3 (moderate) Qualified Code(s): E11.22 - Type 2 diabetes mellitus with diabetic chronic kidney disease; N18.3 - Chronic kidney disease, stage 3 (moderate) (9) CKD (chronic kidney disease) Current Visit: No Status: Chronic Creatinine baseline from 1.5-1.6. Has been at baseline since admission. Qualifiers: Chronic kidney disease stage: stage 3 (moderate) Qualified Code(s): N18.3 - Chronic kidney disease, stage 3 (moderate) (10) History of DVT (deep vein thrombosis) Current Visit: Yes Status: Acute On Eliquis 2.5 mg BID. (11) Pressure ulcer of coccygeal region Current Visit: No Status: Acute Per ID, cont with antibiotics. Wound care following. No concern for osteomyelitis per wound care. Qualifiers: Pressure ulcer stage: unstageable Qualified Code(s): L89.150 - Pressure ulcer of sacral region, unstageable (12) Pressure ulcer of ankle, right, unstageable Current Visit: No Status: Acute See plan above. (13) DVT prophylaxis Current Visit: No Status: Acute On Eliquis. Subjective Principal diagnosis: Septic shock, Acue respiratory failure Interval history: Patient denies any chest pain, shortness of breath, nausea, or vomiting. He does admit to some diffuse minor abdominal discomfort, says it has been the same since yesterday. Denies any fever or chills. Objective PUL Vital signs: Last Vital Signs Temp 96.6 F L 10/12/17 05:02 Pulse 71 10/12/17 07:00 Resp 22 10/12/17 07:00 BP 116/64 10/12/17 07:00 Pulse Ox 94 10/12/17 07:00 General appearance: no acute distress Eyes: nonicteric ENT: oropharynx moist Neck: supple Effort: normal Auscultation: bilateral: rhonchi (Minor rhonchi that continues to improve.) Cardiovascular: regular rate and rhythm Gastrointestinal: normoactive bowel sounds, soft, tender (Minor diffuse tenderness with deep palpation), non-distended Integumentary: normal Extremities: no cyanosis, no clubbing, pulses normal, no ischemia or petechiae, edema (+3 Pedal pitting edema of R leg. +2 Pitting edema of L leg.) Musculoskeletal: no deformities normal mental status mood appropriate, affect normal Results - Laboratory Findings CBC and BMP: 10/11/17 03:45 10/11/17 03:45 ABG ABG pH 7.40 pH Units (7.32-7.45) 10/06/17 04:56 ABG pCO2 43 mmHg (35-45) 10/06/17 04:56 ABG pO2 68 mmHg (85-104) L 10/06/17 04:56 ABG O2 Saturation 93 % (95-98) L 10/06/17 04:56 PT/INR, D-dimer PT 17.9 Seconds (9.4-12.1) H 10/03/17 19:14 Abnormal lab findings: Abnormal lab results RBC 2.89 M/mcL (4.19-5.50) L 10/11/17 03:45 Hgb 9.0 g/dL (12.9-16.9) L 10/11/17 03:45 Hct 27.1 % (37.5-50.1) L 10/11/17 03:45 RDW 14.7 % (11.5-14.5) H 10/11/17 03:45 Plt Count 135 K/mcL (140-400) L 10/11/17 03:45 MPV 9.3 fL (9.4-12.4) L 10/11/17 03:45 Lymphocytes # 0.5 K/mcL (0.6-4.6) L 10/11/17 03:45 Nucleated RBCs/100 WBC 0.5 /100 WBC (0) H 10/09/17 03:07 Toxic Granulation Present (Not Present) A 10/05/17 03:50 Dohle Bodies Present (Not Present) A 10/03/17 19:14 Polychromasia 1+ (Not Present) A 10/03/17 19:14 ESR 107 mm/hr (0-10) H 10/10/17 04:00 PT 17.9 Seconds (9.4-12.1) H 10/03/17 19:14 ABG pO2 68 mmHg (85-104) L 10/06/17 04:56 ABG Total CO2 27 mEq/L (20-26) H 10/06/17 04:56 ABG O2 Saturation 93 % (95-98) L 10/06/17 04:56 Sodium 131 mEq/L (136-145) L 10/11/17 03:45 Chloride 97 mEq/L (98-107) L 10/11/17 03:45 BUN 84 mg/dL (8-23) H 10/11/17 03:45 Creatinine 1.42 mg/dL (0.70-1.30) H 10/11/17 03:45 Est GFR ( Amer) 57 (> 60) L 10/11/17 03:45 Est GFR (Non-Af Amer) 47 (> 60) L 10/11/17 03:45 BUN/Creatinine Ratio 59 (6-26) H 10/11/17 03:45 Glucose 160 mg/dL (70-105) H 10/11/17 03:45 POC Glucose 229 mg/dL (70-99) H 10/11/17 20:14 Calculated Osmolality 301 (280-300) H 10/11/17 03:45 Calcium 7.7 mg/dL (8.6-10.3) L 10/11/17 03:45 Venous Ioniz Calcium 1.07 mmol/L (1.15-1.35) L 10/06/17 05:18 Phosphorus 4.7 mg/dL (2.7-4.5) H 10/06/17 04:50 Iron < 10 mcg/dL (65-175) L 10/04/17 00:30 Transferrin 86 mg/dL (203-362) L 10/04/17 00:30 Ferritin 1262 ng/mL (20-250) H 10/04/17 00:30 AST 41 Units/L (13-39) H 10/03/17 19:14 Alkaline Phosphatase 271 Units/L (34-104) H 10/03/17 19:14 Troponin I 0.50 ng/mL (< 0.04) H* 10/04/17 05:50 C-Reactive Protein 144 mg/L (Less than 10) H 10/10/17 04:00 B-Natriuretic Peptide 1124 pg/mL (Less than 100) H 10/03/17 19:14 Serum Total Protein 4.4 g/dL (6.4-8.9) L 10/03/17 19:14 Albumin 1.9 g/dL (3.5-5.7) L 10/03/17 19:14 Albumin/Globulin Ratio 0.8 (1.1-2.2) L 10/03/17 19:14 Urine Clarity Cloudy (Clear) A 10/03/17 18:11 Urine Protein 30 mg/dL (Neg-Trace) H 10/03/17 18:11 Urine Blood Large (Negative) H 10/03/17 18:11 Ur Leukocyte Esterase Large (Negative) H 10/03/17 18:11 Urine Microscopic RBC 15-30 per hpf (0-3) H 10/03/17 18:11 Urine Microscopic WBC 30-50 per hpf (0-3) H 10/03/17 18:11 Urine Bacteria Many per hpf (None-Few) H 10/03/17 18:11 Ur Culture Indicated? YES (NO) A 10/03/17 18:11 Nasal Screen MRSA (PCR) Positive (Negative) A 10/05/17 18:36 Vancomycin Trough 20 mcg/mL (5-10) H 10/05/17 18:13 Enterobacteriac sp PCR DETECTED (Not Detect) A 10/03/17 19:14 E. coli (PCR) DETECTED (Not Detect) A 10/03/17 19:14 Entero/Rhino (PCR) DETECTED (Not Detect) A 10/04/17 15:40 - Clinical Findings Intake & Output: Intake & Output 10/11/1718 10/12/17 15:59 23:59 07:59 Intake Total 352 / 352 25 / 25 Output Total 350 / 350 1000 / 1000 300 / 300 Balance -975 / -975 -300 / -300 Weight 133.7 kg - VTE Documentation of Mechanical Device: Intermittent pneumatic compression device
[2017-10-12] MEDS ORDERED: Furosemide 20 MG/2 ML VIAL IVP ONE (08:03)
[2017-10-12] MEDS: Insulin LISPRO 300 UNITS/3 ML VIAL SQ SCH ×4 (08:35→23:50)
[2017-10-12] MEDS: Pantoprazole 40 MG VIAL IVP SCH (08:40)
[2017-10-12] MEDS: Apixaban 5 MG TABLET PO SCH ×2 (08:40→21:29)
[2017-10-12] MEDS: Gabapentin 300 MG CAPSULE PO SCH ×2 (08:40→21:29)
[2017-10-12] MEDS: Benzonatate 100 MG CAPSULE PO SCH ×3 (08:40→21:28)
[2017-10-12] MEDS: Acetaminophen 325 MG TABLET PO SCH ×3 (08:40→21:29)
[2017-10-12] MEDS: Ertapenem 1,000 MG in 0.9 % Sodium Chloride Mini Bag 100 ML IVPB SCH (08:41)
[2017-10-12] MEDS ORDERED: Ondansetron ODT 4 MG TAB.RAPDIS PO PRN (10:18)
[2017-10-12] MEDS ORDERED: D5% in Water 1,000 ML IVC PRN (10:18)
[2017-10-12] MEDS ORDERED: *HR* Dextrose 50 % in Water (Syg) 50 ML SYRINGE IVP PRN (10:18)
[2017-10-12] MEDS ORDERED: Potassium Phosphate 44 MEQ in 0.9 % Sodium Chloride 250 ML IVPB PRN (10:18)
[2017-10-12] MEDS ORDERED: Dextrose Gel 15 GM/37.5 ML TUBE PO PRN ×2 (10:18)
[2017-10-12] MEDS ORDERED: Naloxone 0.4 MG/ML INJ IVP PRN (10:18)
[2017-10-12] MEDS ORDERED: Potassium Chloride 40 MEQ/200 ML BAG IVPB PRN (10:18)
[2017-10-12] MEDS: *HR* OxyCODONE/APAP 5/325 TABLET PO PRN ×2 (11:08→19:29)
[2017-10-12 12:30] LABS: Basophils % 0.2 %; Eosinophils # 0.1 K/mcL (0.0-0.6); Eosinophils % 0.8 %; Hematocrit 27.8 % (37.5-50.1); Immature Granulocytes % 2.2 % (0-4); Lymphocytes # 0.4 K/mcL (0.6-4.6); Lymphocytes % 4.2 %; Mean Corpuscular HGB Conc 32.4 g/dL (31.6-35.5); Mean Corpuscular Hemoglobin 30.4 pg (28.0-33.3); Mean Corpuscular Volume 93.9 fL (83.0-100.0); Mean Platelet Volume 9.4 fL (9.4-12.4); Monocytes # 0.5 K/mcL (0.0-1.3); Monocytes % 5.1 %; Neutrophils # 8.2 K/mcL (1.6-8.9); Platelet Count 145 K/mcL (140-400); Red Blood Count 2.96 M/mcL (4.19-5.50); Red Cell Distribution Width 15.2 % (11.5-14.5); Segmented Neutrophils % 87.5 %
[2017-10-12 14:03] LABS: Calcium 7.9 mg/dL (8.6-10.3); Potassium 3.8 mEq/L (3.5-5.1)
--- NOTE | 2017-10-12 15:50 | Infectious Disease Progress No ---
Date of Encounter: 10/12/17 Time of Encounter: 15:48 - Assessment and Plan (1) Septic shock Current Visit: Yes Status: Resolved The patient had three SIRS criteria plus hypotension requiring vasopressors and acute respiratory failure and lactic acidosis. Likely secondary to bacteremia and UTI. Improved. WBC trending down. Acute respiratory failure and lactic acidosis have resolved. Off pressors Blood cultures drawn 10/03/17 are positive 2/2 sets for E. coli ESBL. Repeat blood cultures drawn 10/07/17 are no growth (2) Bacteremia due to Escherichia coli Current Visit: Yes Status: Acute Causative organism: E. coli ESBL. Source: likely the urine. Blood cultures drawn 10/03/17 are positive 2/2 sets for E. coli ESBL. Repeat blood cultures drawn 10/07/17 are NGTD x 2 sets. Continue Ertapenem 1 gram IV daily. Duration of treatment depends on the clinical picture, but likely a total of 14 days. Can likely transition to PO Bactrim if/when the patient is ready for discharge. Monitor renal function and dose-adjust antibiotics. Continue contact precautions per protocol. 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 coli ESBL. Has a history of ESBL E. coli in the urine (06/2016, 08/2017, 09/29/2017). Well-known to [facility] team. 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 CT of the abdomen and pelvis completed air in the bladder lumen. Urology consulted and following. Continue antibiotics as above. Duration of treatment depends on the clinical picture. Bethea catheter placed 10/05/17 by the Urology team. (4) HCAP (healthcare-associated pneumonia) Current Visit: Yes Status: Acute Location: bilateral lower lobes. Causative organism likely viral. RIP positive for Enterovirus/Rhinovirus. CT of the chest completed 10/04/17 showed bilateral lower lobe opacities, likely related to pneumonia or atelectasis. Sputum culture is negative. S. pneumo and Legionella UAT negative. No further antibiotics required at this time. Continue Ertapenem for bacteremia and UTI as stated above. (5) Acute respiratory failure with hypoxia Current Visit: Yes Status: Acute Likely multifactorial: CHF + pneumonia. Resolved. Extubated 10/06/17. Further management per the pulmonology team. (6) Pressure ulcer of coccygeal region Current Visit: No Status: Acute Unstageable sacral ulcer currently being follow by wound care. Per wound care and nursing, clinically does not appear to be osteomyelitis, but ESR and CRP are elevated. Continue with current antibiotic regimen as above. Previous CT of the abdomen and pelvis did not reveal evidence of osteomyelitis. Qualifiers: Pressure ulcer stage: unstageable Qualified Code(s): L89.150 - Pressure ulcer of sacral region, unstageable (7) CKD (chronic kidney disease) Current Visit: No Status: Chronic Qualifiers: Chronic kidney disease stage: stage 3 (moderate) Qualified Code(s): N18.3 - Chronic kidney disease, stage 3 (moderate) (8) Diabetes mellitus Current Visit: No Status: Chronic Patient's accucheck upon arrival to ED was 130. Doubt hypoglycemia was cause of his altered mental status. SSI and accuchecks per primary team. Qualifiers: Diabetes mellitus type: type 2 Diabetes mellitus custodial insulin use: without truck terminal manager use Diabetes mellitus complication status: with kidney complications Diabetes mellitus complication detail: with chronic kidney disease Chronic kidney disease stage: stage 3 (moderate) Qualified Code(s): E11.22 - Type 2 diabetes mellitus with diabetic chronic kidney disease; N18.3 - Chronic kidney disease, stage 3 (moderate) (9) History of DVT (deep vein thrombosis) Current Visit: Yes Status: Acute (10) Hypertension Current Visit: No Status: Chronic Qualifiers: Hypertension type: unspecified Qualified Code(s): I10 - Essential (primary ) hypertension (11) Systolic heart failure Current Visit: Yes Status: Chronic Qualifiers: Heart failure chronicity: acute on chronic Qualified Code(s): I50.23 - Acute on chronic systolic (congestive) heart failure - Subjective Interval history: Patient seen and examined. Appears comfortable. Actually he was sleeping when I came into the room and he was moaning. I will, potassium she is having any pain and he said no. Patient denies any headaches no chest pain or shortness of breath no abdominal pain no nausea or vomiting. Patient has no diarrhea. Patient has no urinary symptoms. Patient was transferred to [address] [place] [address] Dis PN-Objective Data - Labs CBC & Chem 7: 10/12/17 08:36 10/12/17 08:36 Labs: Laboratory Results - last 24 hr 10/11/17 10/12/17 10/12/17 20:14 07:51 08:36 WBC 9.3 RBC 2.96 L Hgb 9.0 L Hct 27.8 L MCV 93.9 MCH 30.4 MCHC 32.4 RDW 15.2 H Plt Count 145 MPV 9.4 Immature Gran % 2.2 Seg Neutrophils % 87.5 Lymphocytes % 4.2 Monocytes % 5.1 Eosinophils % 0.8 Basophils % 0.2 Neutrophils # 8.2 Lymphocytes # 0.4 L Monocytes # 0.5 Eosinophils # 0.1 Basophils # 0.0 Sodium Potassium Chloride Carbon Dioxide BUN Creatinine Est GFR ( Amer) Est GFR (Non-Af Amer) BUN/Creatinine Ratio Glucose POC Glucose 229 H 135 H Calculated Osmolality Calcium 10/12/17 10/12/17 08:36 10:58 WBC RBC Hgb Hct MCV MCH MCHC RDW Plt Count MPV Immature Gran % Seg Neutrophils % Lymphocytes % Monocytes % Eosinophils % Basophils % Neutrophils # Lymphocytes # Monocytes # Eosinophils # Basophils # Sodium 135 L Potassium 3.8 Chloride 98 Carbon Dioxide 27 BUN 82 H Creatinine 1.46 H Est GFR ( Amer) 56 L Est GFR (Non-Af Amer) 46 L BUN/Creatinine Ratio 56 H Glucose 179 H POC Glucose 167 H Calculated Osmolality 309 H Calcium 7.9 L Cultures: Cultures 10/07/17 04:31 Blood Culture - Final Peripheral Venipuncture No growth. Final report. 10/07/17 04:25 Blood Culture - Final Peripheral Venipuncture No growth. Final report. 10/04/17 16:00 Sputum Culture - Final Sputum 10/04/17 10:05 Legionella Antigen - Final Urine,Clean Catch Streptococcus pneumoniae Antigen (M - Final Serology 10/05/17 10/04/17 Range/Units 18:36 15:40 Nasal Screen MRSA (PCR) Positive A (Negative) Chlamy pneumoniae PCR Not Detected (Not Detect) Adenovirus (PCR) Not Detected (Not Detect) B. pertussis DNA (PCR) Not Detected (Not Detect) B.parapertussis DNA PCR Not Detected (Not Detect) Coronavirus OC43 (PCR) Not Detected (Not Detect) Coronavirus HKU1 (PCR) Not Detected (Not Detect) Coronavirus 229E (PCR) Not Detected (Not Detect) Coronavirus NL63 (PCR) Not Detected (Not Detect) Human Metapneumovir PCR Not Detected (Not Detect) Influenza A (H1) PCR Not Detected (Not Detect) Influenza A (H3) PCR Not Detected (Not Detect) Influenza Type B (PCR) Not Detected (Not Detect) M.pneumoniae DNA (PCR) Not Detected (Not Detect) Parainfluenza 1 (PCR) Not Detected (Not Detect) Parainfluenza 2 (PCR) Not Detected (Not Detect) Parainfluenza 3 (PCR) Not Detected (Not Detect) Parainfluenza 4 (PCR) Not Detected (Not Detect) RSV (PCR) Not Detected (Not Detect) Entero/Rhino (PCR) DETECTED A (Not Detect) Exam - Constitutional Vitals: Temp Pulse Resp BP Pulse Ox 97.5 F L 95 18 113/61 94 10/12/17 13:16 10/12/17 13:16 10/12/17 13:16 10/12/17 13:16 10/12/17 13:16 General appearance: no acute distress, no febrile - Respiratory Respiratory exam: Present: CTAB. Absent: wheezes - Cardiovascular Cardiovascular exam: Present: RRR, +S2 - GI/Abdominal GI/Abdominal exam: Present: normal bowel sounds, soft. Absent: tenderness - VTE Documentation of Mechanical Device: Intermittent pneumatic compression device Consult Discharge Plan - Plan Referrals: Radha Jones, EMPLOYMENT COORDINATOR [Primary Care Provider] -
--- NOTE | 2017-10-12 16:33 | Internal Med Progress Note ---
Date of Encounter: 10/13/17 (late entry patient seen on) Time of Encounter: 06:35 (@500PM) - Assessment and plan (1) Systolic heart failure Current Visit: Yes Status: Chronic Assessment and plan: Patient had critically low albumin, we will add albumin bed 3 times a day 6 doses then may be we can add diuretics once his blood pressure is stable Qualifiers: Heart failure chronicity: acute on chronic Qualified Code(s): I50.23 - Acute on chronic systolic (congestive) heart failure Code(s): I50.20 - Unspecified systolic (congestive) heart failure SNOMED Code( s): 815247145 (2) Septic shock Current Visit: Yes Status: Resolved Assessment and plan: Continue current antibiotic appreciate infection was used to ambulate (3) Acute respiratory failure with hypoxia Current Visit: Yes Status: Acute Assessment and plan: Secondary to CHF and possible pneumonia (4) Goals of care, counseling/discussion Current Visit: Yes Status: Acute (5) Pain Current Visit: Yes Status: Acute (6) Protein malnutrition Current Visit: Yes Status: Acute Assessment and plan: Add albumin bolus to 3 times a day in view of his low blood pressure and need diuretics and critically low albumin, will consult dietitian, add protein supplement, may consider appetite stimulant - Time Spent With Patient Total time spent is greater than 50% in coordination of care (as documented) at patient's floor/unit and/or counseling patient: Greater than 35 minutes - Subjective Interval history: Patient continue to feel so weak very hard to ambulate. Shortness of breath is better, poor nutritional status - Constitutional Vitals: Temp Pulse Resp BP Pulse Ox 97.5 F L 102 16 110/57 97 10/12/17 15:51 10/12/17 15:51 10/12/17 15:51 10/12/17 15:51 10/12/17 15:51 General appearance: Present: pleasant, no acute distress - Head Head exam: Present: atraumatic, normocephalic - Neck Neck exam general surgery: Present: supple, trachea midline. Absent: lymphadenopathy - Respiratory Respiratory exam: Present: CTAB, rales (Bilateral lung bases reveals). Absent: accessory muscle use, rhonchi, wheezes - Cardiovascular Cardiovascular exam: Present: RRR, +S1, +S2. Absent: diastolic murmur, gallop, rubs, systolic murmur - GI/Abdominal GI/Abdominal exam: Present: normal bowel sounds, soft, no peritoneal signs. Absent: distended, tenderness - Extremities Exam Extremities exam: Present: pedal edema (Pitting edema positive for bilateral), warm, radial pulses palpable and symmetrical. Absent: cyanotic Internal Medicine: Result - Labs CBC & Chem 7: 10/13/17 04:00 10/12/17 08:36 Labs: Short CBC 10/12/17 Range/Units 08:36 WBC 9.3 (4.3-11.1) K/mcL Hgb 9.0 L (12.9-16.9) g/dL Hct 27.8 L (37.5-50.1) % Plt Count 145 (140-400) K/mcL Neutrophils # 8.2 (1.6-8.9) K/mcL BMP 10/12/17 08:36 Sodium 135 L Potassium 3.8 Chloride 98 Carbon Dioxide 27 BUN 82 H Creatinine 1.46 H Glucose 179 H Calcium 7.9 L - ABG Interpretation ABG results: ABG ABG pH 7.40 pH Units (7.32-7.45) 10/06/17 04:56 ABG pCO2 43 mmHg (35-45) 10/06/17 04:56 ABG pO2 68 mmHg (85-104) L 10/06/17 04:56 ABG O2 Saturation 93 % (95-98) L 10/06/17 04:56 PT/INR, D-dimer PT 17.9 Seconds (9.4-12.1) H 10/03/17 19:14 - VTE Documentation of Mechanical Device: Intermittent pneumatic compression device Consult Discharge Plan - Plan Referrals: Radha Jones, FURNACE PROCESS SUPERVISOR [Primary Care Provider] -
[2017-10-12 17:43] LABS: Phosphorous 5.2 mg/dL (2.7-4.5)
[2017-10-12] MEDS: Thiamine (B-1) 100 MG TABLET PO SCH (21:29)
[2017-10-12] MEDS: Albumin 25% 25gram/100mL 25 GM/100 ML IV.SOLN IVPB SCH (23:52)
[2017-10-13] MEDS: Ipratropium/Albuterol Neb 3 ML IH SCH ×4 (04:25→23:04)
[2017-10-13 05:12] LABS: Basophils % 0.2 %; Eosinophils # 0.1 K/mcL (0.0-0.6); Eosinophils % 1.4 %; Hematocrit 26.4 % (37.5-50.1); Hemoglobin 8.6 g/dL (12.9-16.9); Immature Granulocytes % 2.3 % (0-4); Lymphocytes # 0.5 K/mcL (0.6-4.6); Lymphocytes % 6.1 %; Mean Corpuscular HGB Conc 32.6 g/dL (31.6-35.5); Mean Corpuscular Hemoglobin 30.7 pg (28.0-33.3); Mean Corpuscular Volume 94.3 fL (83.0-100.0); Mean Platelet Volume 9.1 fL (9.4-12.4); Monocytes # 0.4 K/mcL (0.0-1.3); Monocytes % 5.1 %; Neutrophils # 7.1 K/mcL (1.6-8.9); Platelet Count 130 K/mcL (140-400); Red Cell Distribution Width 15.1 % (11.5-14.5); Segmented Neutrophils % 84.9 %
[2017-10-13] MEDS: Albumin 25% 25gram/100mL 25 GM/100 ML IV.SOLN IVPB SCH ×2 (08:05→15:32)
[2017-10-13] MEDS: Thiamine (B-1) 100 MG TABLET PO SCH ×2 (08:05→21:33)
[2017-10-13] MEDS: Benzonatate 100 MG CAPSULE PO SCH ×3 (08:06→21:34)
[2017-10-13] MEDS: Gabapentin 300 MG CAPSULE PO SCH ×2 (08:06→21:34)
[2017-10-13] MEDS: *HR* OxyCODONE/APAP 5/325 TABLET PO PRN (08:06)
[2017-10-13] MEDS: Acetaminophen 325 MG TABLET PO SCH ×3 (08:06→21:34)
[2017-10-13] MEDS: Apixaban 5 MG TABLET PO SCH ×2 (08:10→21:33)
[2017-10-13] MEDS ORDERED: Pantoprazole 40 MG VIAL IVP SCH (09:00)
[2017-10-13] MEDS: Ertapenem 1,000 MG in 0.9 % Sodium Chloride Mini Bag 100 ML IVPB SCH (09:52)
[2017-10-13] MEDS: Insulin LISPRO 300 UNITS/3 ML VIAL SQ SCH ×4 (10:02→21:35)
--- NOTE | 2017-10-13 11:09 | Internal Med Progress Note ---
Date of Encounter: 10/13/17 Time of Encounter: 09:50 - Assessment and plan (1) Systolic heart failure Current Visit: Yes Status: Chronic Assessment and plan: Euvolemic ,close monitoring Qualifiers: Heart failure chronicity: acute on chronic Qualified Code(s): I50.23 - Acute on chronic systolic (congestive) heart failure Code(s): I50.20 - Unspecified systolic (congestive) heart failure SNOMED Code( s): 802015584 (2) Septic shock Current Visit: Yes Status: Resolved Assessment and plan: cont current medications , discussed with dietation high protien formula (3) Acute respiratory failure with hypoxia Current Visit: Yes Status: Acute Assessment and plan: improving (4) Pain Current Visit: Yes Status: Acute (5) Protein malnutrition Current Visit: Yes Status: Acute Assessment and plan: High protein formula. Discussed with dietitian, (6) Acute kidney injury superimposed on chronic kidney disease Current Visit: No Status: Acute Assessment and plan: High BUN possible GI bleeding with his hemoglobin trending down and could be prerenal failure with third spacing, discussed with nephrology team he will come and evaluate the patient, will check urine study (7) Anemia Current Visit: No Status: Acute Assessment and plan: Combination of iron deficiency anemia and anemia of chronic kidney disease, add iron, consider aranesp, we will check stool for occult blood, add Protonix twice a day Qualifiers: Anemia type: iron deficiency Iron deficiency anemia type: unspecified iron deficiency Qualified Code(s): D50.9 - Iron deficiency anemia, unspecified - Time Spent With Patient Total time spent is greater than 50% in coordination of care (as documented) at patient's floor/unit and/or counseling patient: - Subjective Interval history: Patient continue to feel so weak very hard to ambulate. Shortness of breath is better, poor nutritional status - Constitutional Vitals: Temp Pulse Resp BP Pulse Ox 97.1 F L 72 17 107/73 94 10/13/17 07:09 10/13/17 07:09 10/13/17 07:09 10/13/17 07:09 10/13/17 07:09 General appearance: Present: pleasant, no acute distress - Head Head exam: Present: atraumatic, normocephalic - Neck Neck exam general surgery: Present: supple, trachea midline. Absent: lymphadenopathy - Respiratory Respiratory exam: Present: decreased breath sounds, prolonged expiratory phase. Absent: accessory muscle use, rales, rhonchi, wheezes - Cardiovascular Cardiovascular exam: Present: +S1, +S2. Absent: diastolic murmur, gallop, rubs , systolic murmur - GI/Abdominal GI/Abdominal exam: Present: normal bowel sounds, soft, no peritoneal signs. Absent: distended, tenderness - Extremities Exam Extremities exam: Present: pedal edema (+3 bilateral lower extremities marketed improvement with Anthony wrap lower extremities), warm. Absent: calf tenderness, cyanotic - Neurological Exam Neurological exam: Present: CN II-XII intact, oriented X3, no focal deficits. Absent: pronater drift, facial droop, speech deficit Internal Medicine: Result - Labs CBC & Chem 7: 10/13/17 04:00 10/12/17 08:36 Labs: Short CBC 10/12/17 10/13/17 Range/Units 08:36 04:00 WBC 9.3 8.4 (4.3-11.1) K/mcL Hgb 9.0 L 8.6 L (12.9-16.9) g/dL Hct 27.8 L 26.4 L (37.5-50.1) % Plt Count 145 130 L (140-400) K/mcL Neutrophils # 8.2 7.1 (1.6-8.9) K/mcL BMP 10/12/17 08:36 Sodium 135 L Potassium 3.8 Chloride 98 Carbon Dioxide 27 BUN 82 H Creatinine 1.46 H Glucose 179 H Calcium 7.9 L Liver Function 10/13/17 Range/Units 04:00 Albumin 2.6 L (3.5-5.7) g/dL - ABG Interpretation ABG results: ABG ABG pH 7.40 pH Units (7.32-7.45) 10/06/17 04:56 ABG pCO2 43 mmHg (35-45) 10/06/17 04:56 ABG pO2 68 mmHg (85-104) L 10/06/17 04:56 ABG O2 Saturation 93 % (95-98) L 10/06/17 04:56 PT/INR, D-dimer PT 17.9 Seconds (9.4-12.1) H 10/03/17 19:14 - Impressions Impressions Chest X-Ray 10/12/17 17:51 IMPRESSION: Slightly improved appearance of the chest compared to CT of 10/04/2017. No overt x-ray evidence of heart failure. D/ / Shiv Evans / Shiv Evans Interpreting Provider: Shiv Evans - VTE Documentation of Mechanical Device: Intermittent pneumatic compression device Consult Discharge Plan - Plan Referrals: Radha Jones, WINDOWS SERVER ENGINEER [Primary Care Provider] -
--- NOTE | 2017-10-13 15:00 | Nephrology Consult Note ---
Date of Encounter: 10/13/17 Time of Encounter: 12:00 Assessment and Plan (1) CHF exacerbation Current Visit: Yes Status: Acute CXR results noted with no overt signs of CHF. Agree with holding diuretics for now Strict I/Os advised Pt making quite good UOP: 1925cc yesterday, 2425cc the day prior and 750cc so far today. Continue iv albumin for now Will check urine studies Qualifiers: Heart failure type: systolic Qualified Code(s): I50.23 - Acute on chronic systolic (congestive) heart failure (2) CKD (chronic kidney disease) stage 3, GFR 30-59 ml/min Current Visit: Yes Status: Acute Within baseline range of fluctuation. Risinf BUN related to likely third spacing while intravascularly depleted History of Present Illness - Reason for Consult Consult date: 10/13/17 Chronic Kidney Disease Requesting physician: Christie Mg - History of Present Illness 87 y o male with PMH of DM, HTN, CHF, dementia and CKD stage 3 admitted 2017 after recent discharge with altered mental status developing acute resp failure requiring intubation and stay in the ICU also for septic shock with PNA and UTI. He was also treated for CHF exacerbation with iv diuretics. He is now in step down from ICU on 2NE and renal is being consulted to help with his management. Pt is known to me from previous interactions. SCr noted from 1.46 to 1.6 with GFR in the 40s this hospital stay. Baseline GFR has been fluctuating as high as 50s as of last last month but he did have VIRGILIO earlier last month with GFR down to 19. BUn noted elevated more than baseline after diuresis with hypotesion also noted for the past several days as low as 80s/50s 2 days ago improving to 100s with iv albumin off diuretics. Pt seen and examined , not much of a historian. Most of the information obtained from records. Past Med Surg Social Fam HX - Past Medical History Medical history: arthritis, CHF, DVT, diabetes, hypertension, kidney stones, renal disease, other Additional medical history: UTI,PAcer, Alzheimers, Cellulitis Psychiatric history: anxiety - Past Surgical History Surgical History: herniorrhaphy, pacemaker/AICD Additional surgical history: I7D LLE. Back Surgery. Right knee. von wellenbrand. bilat carpal tunnel - Social History Smoking Status: Never smoker Smokeless Tobacco Status: No Alcohol use: none, rarely Drug use: none - Family History Father Hx Family Cardiac Disorders: Yes Hx Family Respiratory Disorders: No Hx Family Cancer: No Hx Family GI Disorders: No Hx Family Endocrine Disorder: No Hx Family Neuromuscular Disorders: No Hx Family Neurologic Disorders: No Hx Family HEENT Disorders: No Hx Family Autoimmune Disorders: No Mother Family Member Ethnicity: Non- Living Status: Hx Family Cardiac Disorders: No Hx Family Respiratory Disorders: No Hx Family Cancer: No Hx Family GI Disorders: No Hx Family Endocrine Disorder: No Hx Family Neuromuscular Disorders: No Hx Family Neurologic Disorders: No Hx Family HEENT Disorders: No Hx Family Autoimmune Disorders: No Medications and Allergies Tamsulosin [Flomax] 0.4 mg PO DAILY capsule 08/06/15 [Rx] Atorvastatin [Lipitor] 40 mg PO DAILY 09/07/15 [History] Cholecalciferol (D-3) [Vitamin D] 2,000 unit PO DAILY 05/09/17 [History] Furosemide [Lasix] 40 mg PO DAILY 07/27/17 [History] Apixaban [Eliquis] 2.5 mg PO BID #60 tablet 07/30/17 [Rx] Aspirin Enteric Coated [Aspirin EC] 81 mg PO DAILY #30 tablet.dr 07/30/17 [Rx] Ondansetron [Zofran ODT] 8 mg PO TID PRN 09/01/17 [History] PARoxetine HCl [Paroxetine HCl] 10 mg PO QAM 09/01/17 [History] Gabapentin [Neurontin] 300 mg PO BID 7 Days #14 capsule 09/06/17 [Rx] Acetaminophen [Tylenol Arthritis] 650 mg PO TID 09/13/17 [History] Docusate [Colace] 100 mg PO BID 09/13/17 [History] Insulin LISPRO [HumaLOG] 0 units SQ TIDAC #1 each 09/24/17 [Rx] Losartan [Cozaar] 25 mg PO DAILY 09/26/17 [History] Benzonatate [Tessalon] 100 mg PO TID 10/03/17 [History] Ertapenem [INVanz] 1,000 mg IVPB DAILY 10/03/17 [History] Guaifenesin [Mucinex] 600 mg PO BID 10/03/17 [History] Ipratropium/Albuterol Neb [Duoneb] 3 ml IH Q6HR 10/03/17 [History] 3 Allergy/AdvReac Type Severity Reaction Status Date / Time No Known Allergies Allergy Verified 10/03/17 21:14 Review of Systems All Systems: reviewed and no additional remarkable complaints except as stated ( 10 systems reviewed) Exam - Vital Signs Vital signs: Initial Vital Signs Temp Pulse Resp BP Pulse Ox 99.6 F 93 24 93/37 98 10/03/17 18:02 10/03/17 18:02 10/03/17 18:02 10/03/17 18:02 10/03/17 18:02 Vital Signs - Last 8 Hours Temp Pulse Resp BP Pulse Ox 10/13/17 11:17 105/59 10/13/17 10:42 20 99 10/13/17 07:09 97.1 F L 72 17 107/73 94 Intake and Output 10/12/17 10/13/17 10/13/17 23:59 07:59 15:59 Intake Total 60 / 60 160 / 160 600 / 600 Output Total 300 / 300 450 / 450 300 / 300 Balance -240 / -240 -290 / -290 300 / 300 Intake: IV Fluids 100 / 100 Flexbumin 25 gm In 100 ml @ 60 100 / 100 mls/hr IVPB Q8HR [facility] Rx#: [id number] Oral 60 / 60 60 / 60 600 / 600 Output: Catheter 300 / 300 450 / 450 300 / 300 Other: Meal Dinner Lunch Percent of Meal Consumed 10% 75% Stool Size Small Stool Characteristics Mucoid Stool Color White Weight 134 kg Blood Glucose* 178 138 185 Patient Weight 10/13/17 23:59 Weight 134 kg - General Appearance General appearance: chronically ill, fatigue EENT: ATNC, mucous membranes dry Neck: no JVD, supple Additional Comments: good areation ant bilat Cardiology: edema (LE/UE bilat), normal S1, normal S2 Gastrointestinal: no tenderness, no guarding, obese Integumentary: warm and dry Neurologic: no focal deficit Musculoskeletal: no deformities Psychiatric: mood/affect appropriate, cooperative Results - Lab Results 10/13/17 04:00 10/14/17 11:38 Most recent lab results ABG pH 7.40 pH Units (7.32-7.45) 10/06/17 04:56 ABG pCO2 43 mmHg (35-45) 10/06/17 04:56 ABG pO2 68 mmHg (85-104) L 10/06/17 04:56 ABG HCO3 26 mEq/L (21-27) 10/06/17 04:56 ABG O2 Saturation 93 % (95-98) L 10/06/17 04:56 Calcium 7.9 mg/dL (8.6-10.3) L 10/12/17 08:36 Phosphorus 5.2 mg/dL (2.7-4.5) H 10/12/17 16:54 Magnesium 2.0 mg/dL (1.6-2.6) 10/12/17 16:54 Consult Discharge Plan - Plan Referrals: Radha Jones, INTERIOR DESIGN PROGRAM CHAIR [Primary Care Provider] -
--- NOTE | 2017-10-13 16:51 | Infectious Disease Progress No ---
Date of Encounter: 10/13/17 Time of Encounter: 16:50 - Assessment and Plan (1) Septic shock Current Visit: Yes Status: Resolved The patient had three SIRS criteria plus hypotension requiring vasopressors and acute respiratory failure and lactic acidosis. Likely secondary to bacteremia and UTI. Improved. WBC trending down. Acute respiratory failure and lactic acidosis have resolved. Off pressors Blood cultures drawn 10/03/17 are positive 2/2 sets for E. coli ESBL. Repeat blood cultures drawn 10/07/17 are no growth (2) Bacteremia due to Escherichia coli Current Visit: Yes Status: Acute Causative organism: E. coli ESBL. Source: likely the urine. Blood cultures drawn 10/03/17 are positive 2/2 sets for E. coli ESBL. Repeat blood cultures drawn 10/07/17 are NGTD x 2 sets. Continue Ertapenem 1 gram IV daily. Duration of treatment depends on the clinical picture, but likely a total of 14 days. Can likely transition to PO Bactrim if/when the patient is ready for discharge. Monitor renal function and dose-adjust antibiotics. Continue contact precautions per protocol. 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 coli ESBL. Has a history of ESBL E. coli in the urine (06/2016, 08/2017, 09/29/2017). Well-known to [facility] team. 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 CT of the abdomen and pelvis completed air in the bladder lumen. Urology consulted and following. Continue antibiotics as above. Duration of treatment depends on the clinical picture. Ebthea catheter placed 10/05/17 by the Urology team. (4) HCAP (healthcare-associated pneumonia) Current Visit: Yes Status: Acute Location: bilateral lower lobes. Causative organism likely viral. RIP positive for Enterovirus/Rhinovirus. CT of the chest completed 10/04/17 showed bilateral lower lobe opacities, likely related to pneumonia or atelectasis. Sputum culture is negative. S. pneumo and Legionella UAT negative. No further antibiotics required at this time. Continue Ertapenem for bacteremia and UTI as stated above. (5) Acute respiratory failure with hypoxia Current Visit: Yes Status: Acute Likely multifactorial: CHF + pneumonia. Resolved. Extubated 10/06/17. Further management per the pulmonology team. (6) Pressure ulcer of coccygeal region Current Visit: No Status: Acute Unstageable sacral ulcer currently being follow by wound care. Per wound care and nursing, clinically does not appear to be osteomyelitis, but ESR and CRP are elevated. Continue with current antibiotic regimen as above. Previous CT of the abdomen and pelvis did not reveal evidence of osteomyelitis. Qualifiers: Pressure ulcer stage: unstageable Qualified Code(s): L89.150 - Pressure ulcer of sacral region, unstageable (7) CKD (chronic kidney disease) Current Visit: No Status: Chronic Qualifiers: Chronic kidney disease stage: stage 3 (moderate) Qualified Code(s): N18.3 - Chronic kidney disease, stage 3 (moderate) (8) Diabetes mellitus Current Visit: No Status: Chronic Patient's accucheck upon arrival to ED was 130. Doubt hypoglycemia was cause of his altered mental status. SSI and accuchecks per primary team. Qualifiers: Diabetes mellitus type: type 2 Diabetes mellitus penitentiary insulin use: without choker hooker use Diabetes mellitus complication status: with kidney complications Diabetes mellitus complication detail: with chronic kidney disease Chronic kidney disease stage: stage 3 (moderate) Qualified Code(s): E11.22 - Type 2 diabetes mellitus with diabetic chronic kidney disease; N18.3 - Chronic kidney disease, stage 3 (moderate) (9) History of DVT (deep vein thrombosis) Current Visit: Yes Status: Acute (10) Hypertension Current Visit: No Status: Chronic Qualifiers: Hypertension type: unspecified Qualified Code(s): I10 - Essential (primary ) hypertension (11) Systolic heart failure Current Visit: Yes Status: Chronic Qualifiers: Heart failure chronicity: acute on chronic Qualified Code(s): I50.23 - Acute on chronic systolic (congestive) heart failure - Subjective Interval history: Patient seen and examined. Appears comfortable. Actually he was sleeping when I came into the room and he was moaning. I will, potassium she is having any pain and he said no. Patient denies any headaches no chest pain or shortness of breath no abdominal pain no nausea or vomiting. Patient has no diarrhea. Patient has no urinary symptoms. Family are at bedside. Questions answered. Patient is having more, but he tells me he feels okay otherwise. He tells me he has not had a bowel movement today. Infect Dis PN-Objective Data - Labs CBC & Chem 7: 10/13/17 04:00 10/12/17 08:36 Labs: Laboratory Results - last 24 hr 10/12/17 10/12/17 10/12/17 13:18 16:47 16:54 WBC RBC Hgb Hct MCV MCH MCHC RDW Plt Count MPV Immature Gran % Seg Neutrophils % Lymphocytes % Monocytes % Eosinophils % Basophils % Neutrophils # Lymphocytes # Monocytes # Eosinophils # Basophils # POC Glucose 205 H 174 H Phosphorus 5.2 H Magnesium 2.0 B-Natriuretic Peptide Albumin Prealbumin 10/13/17 10/13/17 10/13/17 04:00 04:00 04:00 WBC 8.4 RBC 2.80 L Hgb 8.6 L Hct 26.4 L MCV 94.3 MCH 30.7 MCHC 32.6 RDW 15.1 H Plt Count 130 L MPV 9.1 L Immature Gran % 2.3 Seg Neutrophils % 84.9 Lymphocytes % 6.1 Monocytes % 5.1 Eosinophils % 1.4 Basophils % 0.2 Neutrophils # 7.1 Lymphocytes # 0.5 L Monocytes # 0.4 Eosinophils # 0.1 Basophils # 0.0 POC Glucose Phosphorus Magnesium B-Natriuretic Peptide Albumin 2.6 L Prealbumin 5.6 L 10/13/17 04:00 WBC RBC Hgb Hct MCV MCH MCHC RDW Plt Count MPV Immature Gran % Seg Neutrophils % Lymphocytes % Monocytes % Eosinophils % Basophils % Neutrophils # Lymphocytes # Monocytes # Eosinophils # Basophils # POC Glucose Phosphorus Magnesium B-Natriuretic Peptide 1157 H Albumin Prealbumin Cultures: Cultures 10/07/17 04:31 Blood Culture - Final Peripheral Venipuncture No growth. Final report. 10/07/17 04:25 Blood Culture - Final Peripheral Venipuncture No growth. Final report. 10/04/17 16:00 Sputum Culture - Final Sputum 10/04/17 10:05 Legionella Antigen - Final Urine,Clean Catch Streptococcus pneumoniae Antigen (M - Final Serology 10/05/17 10/04/17 Range/Units 18:36 15:40 Nasal Screen MRSA (PCR) Positive A (Negative) Chlamy pneumoniae PCR Not Detected (Not Detect) Adenovirus (PCR) Not Detected (Not Detect) B. pertussis DNA (PCR) Not Detected (Not Detect) B.parapertussis DNA PCR Not Detected (Not Detect) Coronavirus OC43 (PCR) Not Detected (Not Detect) Coronavirus HKU1 (PCR) Not Detected (Not Detect) Coronavirus 229E (PCR) Not Detected (Not Detect) Coronavirus NL63 (PCR) Not Detected (Not Detect) Human Metapneumovir PCR Not Detected (Not Detect) Influenza A (H1) PCR Not Detected (Not Detect) Influenza A (H3) PCR Not Detected (Not Detect) Influenza Type B (PCR) Not Detected (Not Detect) M.pneumoniae DNA (PCR) Not Detected (Not Detect) Parainfluenza 1 (PCR) Not Detected (Not Detect) Parainfluenza 2 (PCR) Not Detected (Not Detect) Parainfluenza 3 (PCR) Not Detected (Not Detect) Parainfluenza 4 (PCR) Not Detected (Not Detect) RSV (PCR) Not Detected (Not Detect) Entero/Rhino (PCR) DETECTED A (Not Detect) - Impressions Impressions Chest X-Ray 10/12/17 17:51 IMPRESSION: Slightly improved appearance of the chest compared to CT of 10/04/2017. No overt x-ray evidence of heart failure. D/ / Shiv Evans / Shiv Evans Interpreting Provider: Shiv Evans Exam - Constitutional Vitals: Temp Pulse Resp BP Pulse Ox 97.5 F L 89 18 106/79 96 10/13/17 16:22 10/13/17 16:22 10/13/17 16:33 10/13/17 16:22 10/13/17 16:33 General appearance: disheveled, no acute distress, no febrile - Head Head exam: Present: normocephalic. Absent: atraumatic - Respiratory Additional comments: Breath sounds audible both lung pelletier. Coarse breath sounds universally with diffuse rhonchi and some wheezing - Cardiovascular Cardiovascular exam: Present: RRR, +S1, +S2 - GI/Abdominal GI/Abdominal exam: Present: normal bowel sounds, soft. Absent: tenderness - VTE Documentation of Mechanical Device: Intermittent pneumatic compression device Consult Discharge Plan - Plan Referrals: Radha Jones, AURICULOTHERAPIST [Primary Care Provider] -
[2017-10-13 17:06] LABS: Protein/Creatinine Ratio,Urine 0.59 mg/mg (0.00-0.20); Sodium, Urine 14.8 mEq/L
[2017-10-14] MEDS: Albumin 25% 25gram/100mL 25 GM/100 ML IV.SOLN IVPB SCH ×3 (00:38→16:19)
[2017-10-14] MEDS: Ipratropium/Albuterol Neb 3 ML IH SCH ×4 (03:29→22:07)
[2017-10-14] MEDS: Insulin LISPRO 300 UNITS/3 ML VIAL SQ SCH ×4 (08:21→20:48)
[2017-10-14] MEDS: Acetaminophen 325 MG TABLET PO SCH ×3 (08:22→20:28)
[2017-10-14] MEDS: Benzonatate 100 MG CAPSULE PO SCH ×3 (08:23→20:29)
[2017-10-14] MEDS: Gabapentin 300 MG CAPSULE PO SCH ×2 (08:23→20:29)
[2017-10-14] MEDS: Apixaban 5 MG TABLET PO SCH ×2 (08:23→20:29)
[2017-10-14] MEDS: Thiamine (B-1) 100 MG TABLET PO SCH ×2 (08:23→20:30)
[2017-10-14] MEDS: Ertapenem 1,000 MG in 0.9 % Sodium Chloride Mini Bag 100 ML IVPB SCH (08:25)
--- NOTE | 2017-10-14 13:13 | Nephrology Progress Note ---
Date of Encounter: 10/14/17 Time of Encounter: 13:00 - Assessment and Plan (1) CHF exacerbation Current Visit: Yes Status: Acute Continue strict I/Os Qualifiers: Heart failure type: systolic Qualified Code(s): I50.23 - Acute on chronic systolic (congestive) heart failure (2) CKD (chronic kidney disease) stage 3, GFR 30-59 ml/min Current Visit: Yes Status: Acute No new labs available even though ordered STAT to evaluation current renal fxn UOP noted at 1400cc in the past 24hrs Urine shows some proteinuria but not nephrotic Urine sodium consistent with intravascular depletion, continue albumin for now for 3 days total (3) Hypotension Current Visit: Yes Status: Acute Fairly stable at 90s to 100s systolic, continue midodrine and albumin for now Qualifiers: Hypotension type: unspecified hypotension type Qualified Code(s): I95.9 - Hypotension, unspecified Subjective Principal diagnosis: Septic shock, Acue respiratory failure Interval history: Pt seen and examined in great spirits, taking on his cellphone to family. He denies any complaints Objective - Vital Signs Vital signs: Vital Signs Temp Pulse Resp BP Pulse Ox 10/14/17 11:08 97.4 F L 93 17 107/65 100 10/14/17 07:12 97.6 F 84 16 98/58 93 10/14/17 05:00 98.3 F 92 16 107/83 95 10/14/17 03:29 18 99 10/14/17 01:40 97.6 F 84 20 107/71 98 10/13/17 16:33 18 96 10/13/17 16:22 97.5 F L 89 19 106/79 96 Intake and Output 10/13/17 10/14/17 10/14/17 23:59 07:59 15:59 Intake Total 300 / 300 670 / 670 170 / 170 Output Total 650 / 650 400 / 400 200 / 200 Balance -350 / -350 270 / 270 -30 / -30 Intake: IV Fluids 100 / 100 100 / 100 Flexbumin 25 gm In 100 ml @ 60 100 / 100 100 / 100 mls/hr IVPB Q8HR [facility] Rx#: [id number] Oral 200 / 200 570 / 570 170 / 170 Output: Urine 400 / 400 Catheter 650 / 650 200 / 200 Urethral (Bethea) 200 / 200 Other: Meal Dinner Breakfast Percent of Meal Consumed 10% 50% Stool Size Small Smear Stool Consistency loose Stool Color Brown Brown # Bowel Movements 1 Weight 133.6 kg Blood Glucose* 202 162 168 Patient Weight 10/14/17 23:59 Weight 133.6 kg - General Appearance General appearance: Present: chronically ill EENT: Present: ATNC, mucous membranes moist Neck: Present: no JVD, supple Respiratory: Present: clear Cardiology: Present: edema (LE/UE), normal S1, normal S2 Gastrointestinal: Present: no tenderness, no guarding, obese Integumentary: Present: warm and dry Neurologic: Present: no focal deficit Musculoskeletal: Present: no deformities Psychiatric: Present: mood/affect appropriate, cooperative - Lab 10/13/17 04:00 10/14/17 11:38 Most recent lab results ABG pH 7.40 pH Units (7.32-7.45) 10/06/17 04:56 ABG pCO2 43 mmHg (35-45) 10/06/17 04:56 ABG pO2 68 mmHg (85-104) L 10/06/17 04:56 ABG HCO3 26 mEq/L (21-27) 10/06/17 04:56 ABG O2 Saturation 93 % (95-98) L 10/06/17 04:56 Calcium 7.9 mg/dL (8.6-10.3) L 10/12/17 08:36 Phosphorus 5.2 mg/dL (2.7-4.5) H 10/12/17 16:54 Magnesium 2.0 mg/dL (1.6-2.6) 10/12/17 16:54 Urine Creatinine 41 mg/dL 10/13/17 16:35 Urine Sodium 14.8 mEq/L 10/13/17 16:35 Urine Total Protein 24 mg/dL (1-14) H 10/13/17 16:35 - VTE Documentation of Mechanical Device: Intermittent pneumatic compression device Consult Discharge Plan - Plan Referrals: Radha Jones, JEWELRY DRILL OPERATOR [Primary Care Provider] -
[2017-10-14 13:49] LABS: Calcium 8.6 mg/dL (8.6-10.3); Potassium 3.9 mEq/L (3.5-5.1)
--- NOTE | 2017-10-14 14:17 | Internal Med Progress Note ---
Date of Encounter: 10/14/17 Time of Encounter: 14:17 - Assessment and plan (1) Acute respiratory failure with hypoxia Current Visit: Yes Status: Acute (2) Protein malnutrition Current Visit: Yes Status: Acute (3) Acute kidney injury superimposed on chronic kidney disease Current Visit: No Status: Acute (4) Anemia Current Visit: No Status: Acute Qualifiers: Anemia type: iron deficiency Iron deficiency anemia type: unspecified iron deficiency Qualified Code(s): D50.9 - Iron deficiency anemia, unspecified - Time Spent With Patient Plan Hemoglobin less than 10 associated with poor functional status, evidence of iron deficiency anemia in addition to anemia of chronic disease add iron and Aranesp. Continue high protein formula, check albumin level and CBC, after chair, physical therapy and occupational therapy, possible discharge to ECF in next 24-48 hour, we will discuss with psychosocial rehabilitation counselor, replace electrolytes per protocol, add laxative to help with his constipation, counseling on deep breathing again. Based on nephrology team signs of intravascular depletion continue albumin. Total time spent is greater than 50% in coordination of care (as documented) at patient's floor/unit and/or counseling patient: 25 - 35 minutes - Subjective Interval history: Patient is complaining of decreased appetite, decreased oral intake, continued to have felt dry cough, he is complaining of generalized weakness tiredness. He denies any chest pain, systolic blood pressure borderline secondary to intervascular deplesion - Constitutional Vitals: Temp Pulse Resp BP Pulse Ox 97.4 F L 93 17 107/65 100 10/14/17 11:08 10/14/17 11:08 10/14/17 11:08 10/14/17 11:08 10/14/17 11:08 General appearance: Present: pleasant, no acute distress - Head Head exam: Present: atraumatic, normocephalic - Neck Neck exam general surgery: Present: supple, trachea midline. Absent: lymphadenopathy - Respiratory Respiratory exam: Present: decreased breath sounds, CTAB, rales (Bilateral lung base). Absent: accessory muscle use, rhonchi, wheezes - Cardiovascular Cardiovascular exam: Present: RRR, +S1, +S2, tachycardia (Holosystolic murmur). Absent: diastolic murmur, gallop, rubs, systolic murmur - GI/Abdominal GI/Abdominal exam: Present: normal bowel sounds, soft, no peritoneal signs. Absent: distended, tenderness - Extremities Exam Extremities exam: Present: pedal edema, warm. Absent: calf tenderness, cyanotic Internal Medicine: Result - Labs CBC & Chem 7: 10/13/17 04:00 10/14/17 11:38 Labs: BMP 10/14/17 11:38 Sodium 137 Potassium 3.9 Chloride 101 Carbon Dioxide 30 H BUN 78 H Creatinine 1.44 H Glucose 140 H Calcium 8.6 - ABG Interpretation ABG results: ABG ABG pH 7.40 pH Units (7.32-7.45) 10/06/17 04:56 ABG pCO2 43 mmHg (35-45) 10/06/17 04:56 ABG pO2 68 mmHg (85-104) L 10/06/17 04:56 ABG O2 Saturation 93 % (95-98) L 10/06/17 04:56 PT/INR, D-dimer PT 17.9 Seconds (9.4-12.1) H 10/03/17 19:14 - VTE Documentation of Mechanical Device: Intermittent pneumatic compression device Consult Discharge Plan - Plan Referrals: Radha Jones, SHEARER SCREEN MEASURER AND TRIMMER [Primary Care Provider] -
[2017-10-14] MEDS ORDERED: *HR* Digoxin 0.5 MG/2 ML AMPUL IVP ONE (17:22)
[2017-10-14] MEDS: *HR* Digoxin 0.125 MG TABLET PO SCH (18:05)
[2017-10-15] MEDS: Albumin 25% 25gram/100mL 25 GM/100 ML IV.SOLN IVPB SCH ×2 (00:16→10:22)
[2017-10-15] MEDS: Ipratropium/Albuterol Neb 3 ML IH SCH ×4 (03:36→21:31)
[2017-10-15] MEDS: Benzonatate 100 MG CAPSULE PO SCH ×3 (10:08→22:15)
[2017-10-15] MEDS: Apixaban 5 MG TABLET PO SCH ×2 (10:08→22:17)
[2017-10-15] MEDS: Gabapentin 300 MG CAPSULE PO SCH ×2 (10:09→22:15)
[2017-10-15] MEDS: Megestrol Acetate 400 MG/10 ML UDC PO SCH (10:09)
[2017-10-15] MEDS: Acetaminophen 325 MG TABLET PO SCH ×3 (10:11→22:15)
[2017-10-15] MEDS: Thiamine (B-1) 100 MG TABLET PO SCH ×2 (10:11→22:15)
[2017-10-15] MEDS: Insulin LISPRO 300 UNITS/3 ML VIAL SQ SCH ×4 (10:15→22:16)
[2017-10-15] MEDS: Ertapenem 1,000 MG in 0.9 % Sodium Chloride Mini Bag 100 ML IVPB SCH (10:17)
--- NOTE | 2017-10-15 13:38 | Nephrology Progress Note ---
Date of Encounter: 10/15/17 Time of Encounter: 12:00 - Assessment and Plan (1) CHF exacerbation Current Visit: Yes Status: Acute Continue strict I/Os Qualifiers: Heart failure type: systolic Qualified Code(s): I50.23 - Acute on chronic systolic (congestive) heart failure (2) CKD (chronic kidney disease) stage 3, GFR 30-59 ml/min Current Visit: Yes Status: Acute SCR stable at 1.44, GFR 47 from labs yesterday evening UOP noted at 1425cc in the past 24hrs still very good Urine shows some proteinuria but not nephrotic Urine sodium consistent with intravascular depletion, can discontinue after 3 days today (3) Hypotension Current Visit: Yes Status: Acute Fairly stable at 90s to 100s systolic, continue midodrine and albumin to stop today Qualifiers: Hypotension type: unspecified hypotension type Qualified Code(s): I95.9 - Hypotension, unspecified Subjective Principal diagnosis: Septic shock, Acue respiratory failure Interval history: Pt seen and examined alittle tired today and coughing but unable to bring up sputum Objective - Vital Signs Vital signs: Vital Signs Temp Pulse Resp BP Pulse Ox 10/15/17 11:37 97.9 F 109 18 103/56 100 10/15/17 10:21 16 99 10/15/17 07:04 97.7 F 113 16 118/84 99 10/15/17 04:00 89 20 127/66 95 10/15/17 03:36 20 98 10/14/17 23:42 97.7 F 91 18 116/57 96 10/14/17 22:07 18 98 10/14/17 19:48 90 18 101/87 97 10/14/17 18:09 103/69 10/14/17 16:52 17 96 10/14/17 15:17 97.4 F L 89 17 97/74 96 Intake and Output 10/14/17 10/15/17 10/15/17 23:59 07:59 15:59 Intake Total 340 / 340 400 / 400 460 / 460 Output Total 375 / 375 845 / 845 Balance -35 / -35 -445 / -445 460 / 460 Intake: IV Fluids 100 / 100 100 / 100 100 / 100 Flexbumin 25 gm In 100 ml @ 60 100 / 100 100 / 100 mls/hr IVPB Q8HR [facility] Rx#: [id number] INVanz 1,000 MG In 0.9 % Sodium 100 / 100 Chloride (Mini-Bag +) 100 ML @ 100 mls/hr IVPB DAILY [facility] Rx#: [id number] Oral 240 / 240 300 / 300 360 / 360 Output: Urine 360 / 360 Catheter 375 / 375 485 / 485 Urethral (Bethea) 125 / 125 Other: Meal Dinner Lunch Percent of Meal Consumed 50% 30% Weight 133.4 kg Blood Glucose* 240 151 175 Patient Weight 10/15/17 23:59 Weight 133.4 kg - General Appearance General appearance: Present: chronically ill, fatigue EENT: Present: ATNC, mucous membranes moist Neck: Present: no JVD, supple Additional Comments: good areation ant bilat with transmitted upper airway sounds Cardiology: Present: edema (UE/LE slightly improved), normal S1, normal S2 Gastrointestinal: Present: no tenderness, no guarding, obese Integumentary: Present: warm and dry Neurologic: Present: no focal deficit Musculoskeletal: Present: no deformities Psychiatric: Present: mood/affect appropriate, cooperative - Lab 10/13/17 04:00 10/14/17 11:38 Most recent lab results ABG pH 7.40 pH Units (7.32-7.45) 10/06/17 04:56 ABG pCO2 43 mmHg (35-45) 10/06/17 04:56 ABG pO2 68 mmHg (85-104) L 10/06/17 04:56 ABG HCO3 26 mEq/L (21-27) 10/06/17 04:56 ABG O2 Saturation 93 % (95-98) L 10/06/17 04:56 Calcium 8.6 mg/dL (8.6-10.3) 10/14/17 11:38 Phosphorus 5.2 mg/dL (2.7-4.5) H 10/12/17 16:54 Magnesium 2.0 mg/dL (1.6-2.6) 10/12/17 16:54 Urine Creatinine 41 mg/dL 10/13/17 16:35 Urine Sodium 14.8 mEq/L 10/13/17 16:35 Urine Total Protein 24 mg/dL (1-14) H 10/13/17 16:35 - VTE Documentation of Mechanical Device: Intermittent pneumatic compression device Consult Discharge Plan - Plan Referrals: Radha Jones, BOX OFFICE MANAGER [Primary Care Provider] -
[2017-10-15] MEDS: *HR* OxyCODONE/APAP 5/325 TABLET PO PRN (17:03)
[2017-10-15] MEDS ORDERED: Furosemide 20 MG/2 ML VIAL IVP ONE (17:12)
--- NOTE | 2017-10-15 17:15 | Internal Med Progress Note ---
Date of Encounter: 10/15/17 Time of Encounter: 17:13 - Assessment and plan (1) Acute respiratory failure with hypoxia Current Visit: Yes Status: Acute (2) Protein malnutrition Current Visit: Yes Status: Acute (3) Acute kidney injury superimposed on chronic kidney disease Current Visit: No Status: Acute (4) Anemia Current Visit: No Status: Acute Qualifiers: Anemia type: iron deficiency Iron deficiency anemia type: unspecified iron deficiency Qualified Code(s): D50.9 - Iron deficiency anemia, unspecified (5) Volume overload Current Visit: Yes Status: Acute Qualifiers: Hypervolemia type: other Qualified Code(s): E87.79 - Other fluid overload - Time Spent With Patient plan Signs of fluid overload, patient had a total a dose of albumin, may consider adding small dose of Lasix to help with fluid overload, close monitoring of his renal function, monitor H&H, chest physical therapy to be done every shift, continue aerosol treatment. Possible discharge in next 24-hour awaiting chest x -ray result monitoring his respiratory status physical therapy and occupational therapy to evaluate tomorrow Total time spent is greater than 50% in coordination of care (as documented) at patient's floor/unit and/or counseling patient: 25 - 35 minutes - Subjective Interval history: Patient is complaining of dry cough associated with shortness of breath, continued to have lower extremity edema better than before - Constitutional Vitals: Temp Pulse Resp BP Pulse Ox 98.0 F 96 16 103/74 99 10/15/17 16:08 10/15/17 16:08 10/15/17 16:17 10/15/17 16:08 10/15/17 16:17 General appearance: Present: pleasant, no acute distress - Respiratory Respiratory exam: Present: decreased breath sounds, CTAB, rales, rhonchi. Absent: wheezes - Cardiovascular Cardiovascular exam: Present: +S1, +S2, systolic murmur. Absent: gallop, rubs - GI/Abdominal GI/Abdominal exam: Present: normal bowel sounds, soft, no peritoneal signs. Absent: distended, tenderness - Extremities Exam Extremities exam: Present: pedal edema, warm, radial pulses palpable and symmetrical. Absent: calf tenderness, cyanotic Internal Medicine: Result - Labs CBC & Chem 7: 10/13/17 04:00 10/14/17 11:38 - ABG Interpretation ABG results: ABG ABG pH 7.40 pH Units (7.32-7.45) 10/06/17 04:56 ABG pCO2 43 mmHg (35-45) 10/06/17 04:56 ABG pO2 68 mmHg (85-104) L 10/06/17 04:56 ABG O2 Saturation 93 % (95-98) L 10/06/17 04:56 PT/INR, D-dimer PT 17.9 Seconds (9.4-12.1) H 10/03/17 19:14 - VTE Documentation of Mechanical Device: Intermittent pneumatic compression device Consult Discharge Plan - Plan Referrals: Radha Jones, MAIL DELIVERER [Primary Care Provider] -
[2017-10-15 17:42] LABS: Basophils % 0.3 %; Eosinophils # 0.1 K/mcL (0.0-0.6); Hemoglobin 8.5 g/dL (12.9-16.9); Immature Granulocytes % 1.3 % (0-4); Lymphocytes # 0.4 K/mcL (0.6-4.6); Mean Corpuscular HGB Conc 32.7 g/dL (31.6-35.5); Mean Corpuscular Hemoglobin 31.6 pg (28.0-33.3); Mean Corpuscular Volume 96.7 fL (83.0-100.0); Mean Platelet Volume 9.5 fL (9.4-12.4); Monocytes # 0.4 K/mcL (0.0-1.3); Monocytes % 5.5 %; Neutrophils # 5.7 K/mcL (1.6-8.9); Platelet Count 123 K/mcL (140-400); Red Blood Count 2.69 M/mcL (4.19-5.50); Segmented Neutrophils % 85.9 %
[2017-10-15 18:00] LABS: Magnesium 2.1 mg/dL (1.6-2.6); Phosphorous 3.9 mg/dL (2.7-4.5)
[2017-10-16] MEDS: Ipratropium/Albuterol Neb 3 ML IH SCH ×4 (03:42→21:55)
[2017-10-16 06:29] LABS: BUN/Creatinine Ratio 62 (6-26); Blood Urea Nitrogen 73 mg/dL (8-23); Calcium 8.8 mg/dL (8.6-10.3); Carbon Dioxide 27 mEq/L (23-29); Chloride 102 mEq/L (98-107); Glucose 186 mg/dL (70-105); Osmolality,Calculated 312 (280-300); Potassium 3.9 mEq/L (3.5-5.1); Sodium 138 mEq/L (136-145); eGFR For African Americans > 60 (> 60); eGFR For Non-African Americans 59 (> 60)
[2017-10-16] MEDS: Acetaminophen 325 MG TABLET PO SCH ×3 (08:52→20:42)
[2017-10-16] MEDS: *HR* Digoxin 0.125 MG TABLET PO SCH (08:52)
[2017-10-16] MEDS: Gabapentin 300 MG CAPSULE PO SCH ×2 (08:53→20:42)
[2017-10-16] MEDS: Benzonatate 100 MG CAPSULE PO SCH ×3 (08:53→20:45)
[2017-10-16] MEDS: Thiamine (B-1) 100 MG TABLET PO SCH ×2 (08:53→20:41)
[2017-10-16] MEDS: Megestrol Acetate 400 MG/10 ML UDC PO SCH (08:54)
[2017-10-16] MEDS: Ertapenem 1,000 MG in 0.9 % Sodium Chloride Mini Bag 100 ML IVPB SCH (08:54)
[2017-10-16] MEDS: Insulin LISPRO 300 UNITS/3 ML VIAL SQ SCH ×4 (08:54→21:00)
[2017-10-16] MEDS: Apixaban 5 MG TABLET PO SCH (08:54)
--- NOTE | 2017-10-16 09:25 | Internal Med Progress Note ---
Date of Encounter: 10/16/17 Time of Encounter: 09:24 - Assessment and plan (1) Acute respiratory failure with hypoxia Current Visit: Yes Status: Acute (2) Protein malnutrition Current Visit: Yes Status: Acute (3) Acute kidney injury superimposed on chronic kidney disease Current Visit: No Status: Acute (4) Anemia Current Visit: No Status: Acute Qualifiers: Anemia type: iron deficiency Iron deficiency anemia type: unspecified iron deficiency Qualified Code(s): D50.9 - Iron deficiency anemia, unspecified (5) Volume overload Current Visit: Yes Status: Acute Qualifiers: Hypervolemia type: other Qualified Code(s): E87.79 - Other fluid overload (6) Acute gastritis Current Visit: Yes Status: Acute Qualifiers: Gastritis type: unspecified gastritis Qualified Code(s): K29.00 - Acute gastritis without bleeding (7) Constipation by delayed colonic transit Current Visit: Yes Status: Acute - Time Spent With Patient Plan Patient hemoglobin continue to trend down, with his CHF and recent history of pneumonia and comorbid condition, patient had acute gastritis, rule out GI bleeding especially patient is on anticoagulant currently, Protonix twice a day discussed with multiplex operator may need EGD, was transfused 1 unit of blood, consider another dose of Aranesp, chest x-ray reviewed no acute process, patient had severe constipation since admission he had very small bowel movement with add lactulose 3 doses today to help with his bowel movement. Rule out any lower or upper GI bleeding, very high risk of stroke ,DVT . Hold anticoagulant only for 1 day, for possible EGD to rule out GI bleeding, add heparin subcutaneous for DVT prophylaxis, SCD, resume anticoagulant as soon as possible once okay with multiplex operator, his blood pressure stable based on cardiology recommendation add beta carolyne will add metoprolol 12.5 twice a day. Discussed with staff about moving the patient up to chair Total time spent is greater than 50% in coordination of care (as documented) at patient's floor/unit and/or counseling patient: 25 - 35 minutes - Subjective Interval history: Patient is complaining of epigastric discomfort, he had a small bowel movement today, shortness of breath is improving, weaning of oxygen in progress, vital signs stable, patient has a history of urinary retention status post Bethea catheter, Bethea catheter was also placed last week by urology team. - Constitutional Vitals: Temp Pulse Resp BP Pulse Ox 97.6 F 89 20 127/88 98 10/16/17 06:50 10/16/17 06:50 10/16/17 04:05 10/16/17 06:50 10/16/17 06:50 General appearance: Present: pleasant, no acute distress - Head Head exam: Present: atraumatic, normocephalic - Neck Neck exam general surgery: Present: supple, trachea midline. Absent: lymphadenopathy - Respiratory Respiratory exam: Present: decreased breath sounds, prolonged expiratory phase, rales (Right lung base). Absent: accessory muscle use, rhonchi, wheezes - Cardiovascular Cardiovascular exam: Present: RRR, +S1, +S2, systolic murmur (3/6). Absent: diastolic murmur, gallop, rubs - GI/Abdominal GI/Abdominal exam: Present: normal bowel sounds, soft, tenderness (Epigastric tenderness), no peritoneal signs. Absent: distended - Extremities Exam Extremities exam: Present: pedal edema (Bilateral pedal edema positive 2), warm , radial pulses palpable and symmetrical. Absent: calf tenderness, cyanotic Internal Medicine: Result - Labs CBC & Chem 7: 10/16/17 05:22 10/16/17 05:22 Labs: Short CBC 10/15/17 10/16/17 Range/Units 17:17 05:22 WBC 6.7 (4.3-11.1) K/mcL Hgb 8.5 L 8.3 L (12.9-16.9) g/dL Hct 26.0 L (37.5-50.1) % Plt Count 123 L (140-400) K/mcL Neutrophils # 5.7 (1.6-8.9) K/mcL BMP 10/16/17 05:22 Sodium 138 Potassium 3.9 Chloride 102 Carbon Dioxide 27 BUN 73 H Creatinine 1.17 Glucose 186 H Calcium 8.8 - ABG Interpretation ABG results: ABG ABG pH 7.40 pH Units (7.32-7.45) 10/06/17 04:56 ABG pCO2 43 mmHg (35-45) 10/06/17 04:56 ABG pO2 68 mmHg (85-104) L 10/06/17 04:56 ABG O2 Saturation 93 % (95-98) L 10/06/17 04:56 PT/INR, D-dimer PT 17.9 Seconds (9.4-12.1) H 10/03/17 19:14 - Impressions Impressions Chest X-Ray 10/15/17 17:01 IMPRESSION: Stable to slightly increased vascular congestion and streaky perihilar opacities with probable small bilateral pleural effusions. Findings likely represent sequela of pulmonary edema. Atypical infection is also in the differential. D/ / 10/15/2017 22:55:00 Kvng Porras MD / alana Interpreting Provider: Kvng Porras MD - VTE Documentation of Mechanical Device: Intermittent pneumatic compression device Consult Discharge Plan - Plan Referrals: Radha Jones, CLINICAL EDUCATION SPECIALIST [Primary Care Provider] -
--- NOTE | 2017-10-16 10:36 | Gastroenterology Consult Note ---
<MendozaJake tavarez Grisel - Last Filed: 10/16/17 10:34> Date of Encounter: 10/16/17 Time of Encounter: 10:05 - Assessment and plan (1) Anemia Current Visit: No Status: Acute Assessment and plan: Hgb on admission was 9.7 and today Hgb 8.3. Iron less than 10 with ferritin 1262. Hgb 13.4 on 09/01/2017. He was started on BID PPI. No melena or hematochezia. Consider EGD tomorrow to r/o esophagitis, gastritis, duodenitis, PUD, MW tear, or AVM. Will discuss with Dr. Marquez. Qualifiers: Anemia type: iron deficiency Iron deficiency anemia type: unspecified iron deficiency Qualified Code(s): D50.9 - Iron deficiency anemia, unspecified (2) Constipation by delayed colonic transit Current Visit: Yes Status: Acute Assessment and plan: DAILY fiber supplement - Metamucil, Citrucel or BeneFiber etc - powder, capsules , or gummies. ADEQUATE water intake. DAILY probiotic - Align, Kefir yogurt, or Activia yogurt. MIRALAX up to twice daily as needed for constipation. DULCOLAX or FLEETS enema if 3-4 days WITHOUT BOWEL MOVEMENT. (3) Elevated ferritin Current Visit: Yes Status: Acute Assessment and plan: Check hemochromatosis panel. - Time Spent With Patient Total time spent is greater than 50% in coordination of care (as documented) at patient's floor/unit and/or counseling patient: GI History of Present Illness - Data of Consult Patient: new to practice Consult date: 10/16/17 Requesting Physician: Michael Coley MD - Consult Narrative Reason for consult: Possible GI Bleed History of present illness: Mr. Vázquez is a 87 year old male with PMHx of arthritis, Alzheimer's Disease, DVT on Eliquis, DM, HTN, CKD, pacemaker, and recent diagnosis of CHF with EF of 45% who was recently discharged from here to SNF for decreased mentation which was thought to be secondary to hypoglycemia. Family noticed that he had decreased mentation and poor appetite, and was brought back to the ED for evaluation. He developed acute respiratory failure requiring intubation and stay in the ICU also for septic shock with PNA and UTI. We were consulted to evaluate for possible GI bleed. Hgb on admission was 9.7 and today Hgb 8.3. He was started on BID PPI. Procedures: Colonoscopy 07/11/2005 Dr. De Los Santos: Hyperplastic polyp, nonspecific inflammation ascending colon. NSAIDs: ASA Anticoagulation: Eliquis Past Med Surg Social Fam HX - Past Medical History Medical history: arthritis, CHF, DVT, diabetes, hypertension, kidney stones, renal disease, other Additional medical history: UTI,PAcer, Alzheimers, Cellulitis Psychiatric history: anxiety - Past Surgical History Surgical History: herniorrhaphy, pacemaker/AICD Additional surgical history: I7D LLE. Back Surgery. Right knee. von wellenbrand. bilat carpal tunnel - Social History Smoking Status: Never smoker Smokeless Tobacco Status: No Alcohol use: none, rarely Drug use: none - Family History Father Hx Family Cardiac Disorders: Yes Hx Family Respiratory Disorders: No Hx Family Cancer: No Hx Family GI Disorders: No Hx Family Endocrine Disorder: No Hx Family Neuromuscular Disorders: No Hx Family Neurologic Disorders: No Hx Family HEENT Disorders: No Hx Family Autoimmune Disorders: No Mother Family Member Ethnicity: Non- Living Status: Hx Family Cardiac Disorders: No Hx Family Respiratory Disorders: No Hx Family Cancer: No Hx Family GI Disorders: No Hx Family Endocrine Disorder: No Hx Family Neuromuscular Disorders: No Hx Family Neurologic Disorders: No Hx Family HEENT Disorders: No Hx Family Autoimmune Disorders: No - Gastrointestinal Gastrointestinal: Present: as per HPI - Constitutional Constitutional: as per HPI - EENT Eyes: as per HPI Ears: Present: as per HPI Nose, mouth and throat: Present: as per HPI - Cardiovascular Cardiovascular ROS: Present: as per HPI - Respiratory Respiratory IM: Present: as per HPI - Genitourinary Genitourinary: Absent: change in color, Urinary frequency - Neurological ROS Neurological GI: Present: as per HPI - Hematologic/Lymphatic Hematologic/Lymphatic pediatric: Present: as per HPI - Musculoskeletal Musculoskeletal ROS GI: Present: as per HPI - Integumentary Integumentary GI: Present: as per HPI - Psychiatric ROS Psychiatric GI: Present: as per HPI - Endocrine Endocrine IM: Present: as per HPI - Constitutional Vitals: Temp Pulse Resp BP Pulse Ox 97.6 F 89 20 127/88 98 10/16/17 06:50 10/16/17 06:50 10/16/17 04:05 10/16/17 06:50 10/16/17 06:50 General appearance: Present: cooperative, A&O X 2, no acute distress - Head Head exam: Present: atraumatic, normocephalic - Eye Eye exam: Present: normal appearance, sclera anicteric - ENT ENT exam: Present: mucous membranes moist - Neck Neck exam general surgery: Present: normal inspection, trachea midline - Respiratory Respiratory exam: Present: decreased breath sounds, rhonchi. Absent: CTAB - Cardiovascular Cardiovascular exam: Present: RRR, +S1, +S2 - GI/Abdominal GI/Abdominal exam: Present: soft, no peritoneal signs. Absent: distended, firm , guarding, tenderness - Rectal Rectal exam: Present: deferred - Extremities Exam Extremities exam: Present: warm - Neurological Exam Neurological exam: Absent: oriented X3 - Psychiatric Psychiatric exam: Present: normal affect, normal mood - Skin Skin exam: Present: dry, intact, normal color, warm Results - Labs CBC & Chem 7: 10/16/17 05:22 10/16/17 05:22 Labs: Last Result ESR 107 mm/hr (0-10) H 10/10/17 04:00 Calcium 8.8 mg/dL (8.6-10.3) 10/16/17 05:22 Iron < 10 mcg/dL (65-175) L 10/04/17 00:30 % Saturation TNP 10/04/17 00:30 Transferrin 86 mg/dL (203-362) L 10/04/17 00:30 Ferritin 1262 ng/mL (20-250) H 10/04/17 00:30 Troponin I 0.50 ng/mL (< 0.04) H* 10/04/17 05:50 C-Reactive Protein 144 mg/L (Less than 10) H 10/10/17 04:00 Vitamin B12 1026 pg/mL (250-1100) 10/04/17 00:30 Folate 8.3 ng/mL (3.0-16.0) 10/04/17 00:30 Entire Visit Hgb 8.3 g/dL (12.9-16.9) L 10/16/17 05:22 Hct 26.0 % (37.5-50.1) L 10/15/17 17:17 PT 17.9 Seconds (9.4-12.1) H 10/03/17 19:14 Ferritin 1262 ng/mL (20-250) H 10/04/17 00:30 Total Bilirubin 0.5 mg/dL (0.3-1.0) 10/03/17 19:14 AST 41 Units/L (13-39) H 10/03/17 19:14 ALT 29 Units/L (7-52) 10/03/17 19:14 Folate 8.3 ng/mL (3.0-16.0) 10/04/17 00:30 E. coli (PCR) DETECTED (Not Detect) A 10/03/17 19:14 - ABG ABG results: ABG ABG pH 7.40 pH Units (7.32-7.45) 10/06/17 04:56 ABG pCO2 43 mmHg (35-45) 10/06/17 04:56 ABG pO2 68 mmHg (85-104) L 10/06/17 04:56 ABG O2 Saturation 93 % (95-98) L 10/06/17 04:56 PT/INR, D-dimer PT 17.9 Seconds (9.4-12.1) H 10/03/17 19:14 - Impressions Impressions Chest X-Ray 10/15/17 17:01 IMPRESSION: Stable to slightly increased vascular congestion and streaky perihilar opacities with probable small bilateral pleural effusions. Findings likely represent sequela of pulmonary edema. Atypical infection is also in the differential. D/ / 10/15/2017 22:55:00 Kvng Porras MD / alana Interpreting Provider: Kvng Porras MD Consult Discharge Plan - Plan Referrals: Radha Jones [employer] [Primary Care Provider] - <Levar Marquez - Last Filed: 10/16/17 22:06> Date of Encounter: 10/16/17 Time of Encounter: 14:00 - Time Spent With Patient Total time spent is greater than 50% in coordination of care (as documented) at patient's floor/unit and/or counseling patient: GI History of Present Illness - Data of Consult Requesting Physician: Michael Coley MD - Consult Narrative History of present illness: Mr. Vázquez is a 87 year old male - Constitutional Vitals: Temp Pulse Resp BP Pulse Ox 97.7 F 99 18 125/71 99 10/16/17 19:31 10/16/17 19:31 10/16/17 19:31 10/16/17 19:31 10/16/17 19:31 Results - Labs CBC & Chem 7: 10/16/17 05:22 10/16/17 05:22 Labs: Last Result ESR 107 mm/hr (0-10) H 10/10/17 04:00 Calcium 8.8 mg/dL (8.6-10.3) 10/16/17 05:22 Iron < 10 mcg/dL (65-175) L 10/04/17 00:30 % Saturation TNP 10/04/17 00:30 Transferrin 86 mg/dL (203-362) L 10/04/17 00:30 Ferritin 1262 ng/mL (20-250) H 10/04/17 00:30 Troponin I 0.50 ng/mL (< 0.04) H* 10/04/17 05:50 C-Reactive Protein 144 mg/L (Less than 10) H 10/10/17 04:00 Vitamin B12 1026 pg/mL (250-1100) 10/04/17 00:30 Folate 8.3 ng/mL (3.0-16.0) 10/04/17 00:30 Entire Visit Hgb 8.3 g/dL (12.9-16.9) L 10/16/17 05:22 Hct 26.0 % (37.5-50.1) L 10/15/17 17:17 PT 17.9 Seconds (9.4-12.1) H 10/03/17 19:14 Ferritin 1262 ng/mL (20-250) H 10/04/17 00:30 Total Bilirubin 0.5 mg/dL (0.3-1.0) 10/03/17 19:14 AST 41 Units/L (13-39) H 10/03/17 19:14 ALT 29 Units/L (7-52) 10/03/17 19:14 Folate 8.3 ng/mL (3.0-16.0) 10/04/17 00:30 E. coli (PCR) DETECTED (Not Detect) A 10/03/17 19:14 - ABG ABG results: ABG ABG pH 7.40 pH Units (7.32-7.45) 10/06/17 04:56 ABG pCO2 43 mmHg (35-45) 10/06/17 04:56 ABG pO2 68 mmHg (85-104) L 10/06/17 04:56 ABG O2 Saturation 93 % (95-98) L 10/06/17 04:56 PT/INR, D-dimer PT 17.9 Seconds (9.4-12.1) H 10/03/17 19:14 - Impressions Impressions Chest X-Ray 10/15/17 17:01 IMPRESSION: Stable to slightly increased vascular congestion and streaky perihilar opacities with probable small bilateral pleural effusions. Findings likely represent sequela of pulmonary edema. Atypical infection is also in the differential. D/ / 10/15/2017 22:55:00 Kvng Porras MD / alana Interpreting Provider: Kvng Porras MD - Attending Attestation I have personally performed a face to face evaluation on this patient. I have reviewed and agree with the care plan. History and Exam by me shows: Pt seen. does respond to question appropriately. Has anemia but multiple comorbidities. Also has constipation Rec: EGD if Hb cont to drop. No colon indicated due to comorbidities.
[2017-10-16] MEDS: Lactulose Oral Soln 20 GM/30 ML UDC PO SCH ×4 (11:18→18:21)
[2017-10-16] MEDS ORDERED: 0.9 % Sodium Chloride 500 ML ONE (14:12)
--- NOTE | 2017-10-16 15:57 | Infectious Disease Progress No ---
Date of Encounter: 10/16/17 Time of Encounter: 15:54 - Assessment and Plan (1) Septic shock Current Visit: Yes Status: Resolved The patient had three SIRS criteria plus hypotension requiring vasopressors and acute respiratory failure and lactic acidosis. Likely secondary to bacteremia and UTI. Improved. WBC trending down. Acute respiratory failure and lactic acidosis have resolved. Off pressors Blood cultures drawn 10/03/17 are positive 2/2 sets for E. coli ESBL. Repeat blood cultures drawn 10/07/17 are no growth (2) Bacteremia due to Escherichia coli Current Visit: Yes Status: Acute Causative organism: E. coli ESBL. Source: likely the urine. Blood cultures drawn 10/03/17 are positive 2/2 sets for E. coli ESBL. Repeat blood cultures drawn 10/07/17 are NGTD x 2 sets. may d/c ertapenem, received 13 days worth Duration of treatment depends on the clinical picture, but likely a total of 14 days. Can likely transition to PO Bactrim if/when the patient is ready for discharge. Monitor renal function and dose-adjust antibiotics. Continue contact precautions per protocol. 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 coli ESBL. Has a history of ESBL E. coli in the urine (06/2016, 08/2017, 09/29/2017). Well-known to [facility] team. 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 CT of the abdomen and pelvis completed air in the bladder lumen. Urology consulted and following. Continue antibiotics as above. Duration of treatment depends on the clinical picture. Bethea catheter placed 10/05/17 by the Urology team. (4) HCAP (healthcare-associated pneumonia) Current Visit: Yes Status: Acute Location: bilateral lower lobes. Causative organism likely viral. RIP positive for Enterovirus/Rhinovirus. CT of the chest completed 10/04/17 showed bilateral lower lobe opacities, likely related to pneumonia or atelectasis. Sputum culture is negative. S. pneumo and Legionella UAT negative. No further antibiotics required at this time. Continue Ertapenem for bacteremia and UTI as stated above. (5) Acute respiratory failure with hypoxia Current Visit: Yes Status: Acute Likely multifactorial: CHF + pneumonia. Resolved. Extubated 10/06/17. Further management per the pulmonology team. (6) Pressure ulcer of coccygeal region Current Visit: No Status: Acute Unstageable sacral ulcer currently being follow by wound care. Per wound care and nursing, clinically does not appear to be osteomyelitis, but ESR and CRP are elevated. Continue with current antibiotic regimen as above. Previous CT of the abdomen and pelvis did not reveal evidence of osteomyelitis. will get a CT lumbar spine and pelvis cehck inflammatory markers Qualifiers: Pressure ulcer stage: unstageable Qualified Code(s): L89.150 - Pressure ulcer of sacral region, unstageable (7) CKD (chronic kidney disease) Current Visit: No Status: Chronic Qualifiers: Chronic kidney disease stage: stage 3 (moderate) Qualified Code(s): N18.3 - Chronic kidney disease, stage 3 (moderate) (8) Diabetes mellitus Current Visit: No Status: Chronic Patient's accucheck upon arrival to ED was 130. Doubt hypoglycemia was cause of his altered mental status. SSI and accuchecks per primary team. Qualifiers: Diabetes mellitus type: type 2 Diabetes mellitus long-term insulin use: without proofsheet corrector use Diabetes mellitus complication status: with kidney complications Diabetes mellitus complication detail: with chronic kidney disease Chronic kidney disease stage: stage 3 (moderate) Qualified Code(s): E11.22 - Type 2 diabetes mellitus with diabetic chronic kidney disease; N18.3 - Chronic kidney disease, stage 3 (moderate) (9) History of DVT (deep vein thrombosis) Current Visit: Yes Status: Acute (10) Hypertension Current Visit: No Status: Chronic Qualifiers: Hypertension type: unspecified Qualified Code(s): I10 - Essential (primary ) hypertension (11) Systolic heart failure Current Visit: Yes Status: Chronic Qualifiers: Heart failure chronicity: acute on chronic Qualified Code(s): I50.23 - Acute on chronic systolic (congestive) heart failure - Subjective Interval history: Patient seen and examined. Appears comfortable. Nursing at bedside. patient tells me that he's feeling okay. No chest pain no shortenss of breath, no diarrhea. nursing tells me that when they turned him there was drainage from his wound. Infect Dis PN-Objective Data - Labs CBC & Chem 7: 10/16/17 05:22 10/16/17 05:22 Labs: Laboratory Results - last 24 hr 10/15/17 10/15/17 10/15/17 07:34 11:36 16:02 WBC RBC Hgb Hct MCV MCH MCHC RDW Plt Count MPV Immature Gran % Seg Neutrophils % Lymphocytes % Monocytes % Eosinophils % Basophils % Neutrophils # Lymphocytes # Monocytes # Eosinophils # Basophils # Sodium Potassium Chloride Carbon Dioxide BUN Creatinine Est GFR ( Amer) Est GFR (Non-Af Amer) BUN/Creatinine Ratio Glucose POC Glucose 151 H 175 H 254 H Calculated Osmolality Calcium Phosphorus Magnesium Blood Type Antibody Screen Crossmatch 10/15/17 10/15/17 10/15/17 17:17 17:17 20:05 WBC 6.7 RBC 2.69 L Hgb 8.5 L Hct 26.0 L MCV 96.7 MCH 31.6 MCHC 32.7 RDW 16.0 H Plt Count 123 L MPV 9.5 Immature Gran % 1.3 Seg Neutrophils % 85.9 Lymphocytes % 6.0 Monocytes % 5.5 Eosinophils % 1.0 Basophils % 0.3 Neutrophils # 5.7 Lymphocytes # 0.4 L Monocytes # 0.4 Eosinophils # 0.1 Basophils # 0.0 Sodium Potassium Chloride Carbon Dioxide BUN Creatinine Est GFR ( Amer) Est GFR (Non-Af Amer) BUN/Creatinine Ratio Glucose POC Glucose 275 H Calculated Osmolality Calcium Phosphorus 3.9 Magnesium 2.1 Blood Type Antibody Screen Crossmatch 10/16/17 10/16/17 10/16/17 05:22 05:22 06:45 WBC RBC Hgb 8.3 L Hct MCV MCH MCHC RDW Plt Count MPV Immature Gran % Seg Neutrophils % Lymphocytes % Monocytes % Eosinophils % Basophils % Neutrophils # Lymphocytes # Monocytes # Eosinophils # Basophils # Sodium 138 Potassium 3.9 Chloride 102 Carbon Dioxide 27 BUN 73 H Creatinine 1.17 Est GFR ( Amer) > 60 Est GFR (Non-Af Amer) 59 L BUN/Creatinine Ratio 62 H Glucose 186 H POC Glucose 170 H Calculated Osmolality 312 H Calcium 8.8 Phosphorus Magnesium Blood Type Antibody Screen Crossmatch 10/16/17 10/16/17 09:41 11:39 WBC RBC Hgb Hct MCV MCH MCHC RDW Plt Count MPV Immature Gran % Seg Neutrophils % Lymphocytes % Monocytes % Eosinophils % Basophils % Neutrophils # Lymphocytes # Monocytes # Eosinophils # Basophils # Sodium Potassium Chloride Carbon Dioxide BUN Creatinine Est GFR ( Amer) Est GFR (Non-Af Amer) BUN/Creatinine Ratio Glucose POC Glucose 223 H Calculated Osmolality Calcium Phosphorus Magnesium Blood Type A POSITIVE Antibody Screen NEGATIVE Crossmatch See Detail Cultures: Cultures 10/07/17 04:31 Blood Culture - Final Peripheral Venipuncture No growth. Final report. 10/07/17 04:25 Blood Culture - Final Peripheral Venipuncture No growth. Final report. 10/04/17 16:00 Sputum Culture - Final Sputum 10/04/17 10:05 Legionella Antigen - Final Urine,Clean Catch Streptococcus pneumoniae Antigen (M - Final Serology 10/13/17 10/05/17 10/04/17 Range/Units 16:35 18:36 15:40 Urine Creatinine 41 mg/dL Urine Microalbumin 55 mg/L Microalb/Creat Ratio 134 H (Less than 30) mcg/mg Protein/Creatinin Ratio 0.59 H (0.00-0.20) mg/mg Urine Sodium 14.8 mEq/L Urine Urea Nitrogen 761 mg/dL Urine Total Protein 24 H (1-14) mg/dL Nasal Screen MRSA (PCR) Positive A (Negative) Chlamy pneumoniae PCR Not Detected (Not Detect) Adenovirus (PCR) Not Detected (Not Detect) B. pertussis DNA (PCR) Not Detected (Not Detect) B.parapertussis DNA PCR Not Detected (Not Detect) Coronavirus OC43 (PCR) Not Detected (Not Detect) Coronavirus HKU1 (PCR) Not Detected (Not Detect) Coronavirus 229E (PCR) Not Detected (Not Detect) Coronavirus NL63 (PCR) Not Detected (Not Detect) Human Metapneumovir PCR Not Detected (Not Detect) Influenza A (H1) PCR Not Detected (Not Detect) Influenza A (H3) PCR Not Detected (Not Detect) Influenza Type B (PCR) Not Detected (Not Detect) M.pneumoniae DNA (PCR) Not Detected (Not Detect) Parainfluenza 1 (PCR) Not Detected (Not Detect) Parainfluenza 2 (PCR) Not Detected (Not Detect) Parainfluenza 3 (PCR) Not Detected (Not Detect) Parainfluenza 4 (PCR) Not Detected (Not Detect) RSV (PCR) Not Detected (Not Detect) Entero/Rhino (PCR) DETECTED A (Not Detect) - Impressions Impressions Chest X-Ray 10/15/17 17:01 IMPRESSION: Stable to slightly increased vascular congestion and streaky perihilar opacities with probable small bilateral pleural effusions. Findings likely represent sequela of pulmonary edema. Atypical infection is also in the differential. D/ / 10/15/2017 22:55:00 Kvng Porras MD / alana Interpreting Provider: Kvng Porras MD Exam - Constitutional Vitals: Temp Pulse Resp BP Pulse Ox 97.5 F L 106 18 115/67 99 10/16/17 15:27 10/16/17 15:27 10/16/17 14:44 10/16/17 15:27 10/16/17 14:44 General appearance: cooperative, no febrile - Head Head exam: Present: atraumatic, normocephalic - Respiratory Additional comments: good air sounds bilaterally. No wheezing no ronchi - Cardiovascular Cardiovascular exam: Present: RRR, +S1, +S2 - GI/Abdominal GI/Abdominal exam: Present: normal bowel sounds, soft. Absent: tenderness - VTE Documentation of Mechanical Device: Intermittent pneumatic compression device Consult Discharge Plan - Plan Referrals: Radha Jones, APPEALS REFEREE [Primary Care Provider] -
--- NOTE | 2017-10-16 18:00 | Nephrology Progress Note ---
Date of Encounter: 10/16/17 - Assessment and Plan (1) CHF exacerbation Current Visit: Yes Status: Acute Continue strict I/Os Qualifiers: Heart failure type: systolic Qualified Code(s): I50.23 - Acute on chronic systolic (congestive) heart failure (2) CKD (chronic kidney disease) stage 3, GFR 30-59 ml/min Current Visit: Yes Status: Acute SCR stable at 1.44, GFR 47 from labs yesterday evening UOP noted at 1425cc in the past 24hrs still very good Urine shows some proteinuria but not nephrotic Urine sodium consistent with intravascular depletion, can discontinue after 3 days today (3) Hypotension Current Visit: Yes Status: Acute Fairly stable at 90s to 100s systolic, continue midodrine and albumin to stop today Qualifiers: Hypotension type: unspecified hypotension type Qualified Code(s): I95.9 - Hypotension, unspecified Subjective Principal diagnosis: Septic shock, Acue respiratory failure Interval history: Pt seen and examined alittle tired today and coughing but unable to bring up sputum Objective - Vital Signs Vital signs: Vital Signs Temp Pulse Resp BP Pulse Ox 10/16/17 17:34 97.7 F 118 16 126/85 94 10/16/17 16:40 18 98 10/16/17 15:27 97.5 F L 106 115/67 10/16/17 14:44 97.7 F 70 18 115/67 99 10/16/17 14:29 97.8 F 96 18 114/67 99 10/16/17 11:43 70 113/62 100 10/16/17 10:26 18 96 10/16/17 06:50 97.6 F 89 127/88 98 10/16/17 04:05 74 20 124/60 99 10/16/17 03:42 20 99 10/15/17 23:04 97.4 F L 101 21 127/68 96 10/15/17 21:31 18 96 10/15/17 20:12 94 18 123/71 98 Intake and Output 10/16/17 10/16/17 10/16/17 07:59 15:59 23:59 Intake Total 600 / 600 590 / 590 Output Total 1200 / 1200 Balance -600 / -600 590 / 590 Intake: Oral 600 / 600 240 / 240 Blood Product 0 / 0 350 / 350 Rbcs Leuko Poor As-1 Unit 0 / 0 350 / 350 [id number] Output: Urine 1200 / 1200 Other: Meal Lunch Dinner Percent of Meal Consumed 30% 100% Weight 134.6 kg Blood Glucose* 170 223 158 Patient Weight 10/16/17 23:59 Weight 134.6 kg - Lab 10/16/17 05:22 10/16/17 05:22 Most recent lab results ABG pH 7.40 pH Units (7.32-7.45) 10/06/17 04:56 ABG pCO2 43 mmHg (35-45) 10/06/17 04:56 ABG pO2 68 mmHg (85-104) L 10/06/17 04:56 ABG HCO3 26 mEq/L (21-27) 10/06/17 04:56 ABG O2 Saturation 93 % (95-98) L 10/06/17 04:56 Calcium 8.8 mg/dL (8.6-10.3) 10/16/17 05:22 Phosphorus 3.9 mg/dL (2.7-4.5) 10/15/17 17:17 Magnesium 2.1 mg/dL (1.6-2.6) 10/15/17 17:17 Urine Creatinine 41 mg/dL 10/13/17 16:35 Urine Sodium 14.8 mEq/L 10/13/17 16:35 Urine Total Protein 24 mg/dL (1-14) H 10/13/17 16:35 - VTE Documentation of Mechanical Device: Intermittent pneumatic compression device Consult Discharge Plan - Plan Referrals: Radha Jones, MAT[employer]S TECH [Primary Care Provider] -
[2017-10-17] MEDS: *HR* Heparin 5,000 UNIT/ML VIAL SQ SCH ×3 (02:34→18:41)
[2017-10-17] MEDS: Ipratropium/Albuterol Neb 3 ML IH SCH ×4 (03:43→22:32)
[2017-10-17] MEDS: Insulin LISPRO 300 UNITS/3 ML VIAL SQ SCH ×4 (09:43→22:44)
[2017-10-17] MEDS: Gabapentin 300 MG CAPSULE PO SCH ×2 (09:59→22:42)
[2017-10-17] MEDS: Thiamine (B-1) 100 MG TABLET PO SCH ×2 (10:00→22:42)
[2017-10-17] MEDS: Acetaminophen 325 MG TABLET PO SCH ×3 (10:01→22:43)
[2017-10-17] MEDS: Benzonatate 100 MG CAPSULE PO SCH ×3 (10:01→22:42)
[2017-10-17] MEDS: Megestrol Acetate 400 MG/10 ML UDC PO SCH (10:04)
--- NOTE | 2017-10-17 12:58 | Nephrology Progress Note ---
Date of Encounter: 10/17/17 Time of Encounter: 11:30 - Assessment and Plan (1) CHF exacerbation Current Visit: Yes Status: Acute Continue strict I/Os Can try to diurese gently when stable Qualifiers: Heart failure type: systolic Qualified Code(s): I50.23 - Acute on chronic systolic (congestive) heart failure (2) CKD (chronic kidney disease) stage 3, GFR 30-59 ml/min Current Visit: Yes Status: Acute SCr very good at 1.17, GFR 56 as of yesterday UOP noted at 1850cc in the past 24hrs still very good Urine shows some proteinuria but not nephrotic (3) Hypotension Current Visit: Yes Status: Acute Stable at 100-120s systolic, continue midodrine s/p albumin Qualifiers: Hypotension type: orthostatic hypotension Qualified Code(s): I95.1 - Orthostatic hypotension Subjective Principal diagnosis: Septic shock, Acue respiratory failure Interval history: Pt seen and examined with son at bedside who reports family still deceding on correction care. Pt was working to PT at the time of this eval and is quite deconditioned. No new complaints however. Objective - Vital Signs Vital signs: Vital Signs Temp Pulse Resp BP Pulse Ox 10/17/17 11:28 98.0 F 70 17 113/64 95 10/17/17 10:24 17 126/81 98 10/17/17 07:51 98.2 F 90 17 126/81 100 10/17/17 03:43 20 98 10/16/17 23:07 98.3 F 96 18 103/68 100 10/16/17 21:55 20 98 10/16/17 19:31 97.7 F 99 18 125/71 99 10/16/17 17:34 97.7 F 118 16 126/85 94 10/16/17 16:40 18 98 10/16/17 15:27 97.5 F L 106 115/67 10/16/17 14:44 97.7 F 70 18 115/67 99 10/16/17 14:29 97.8 F 96 18 114/67 99 Intake and Output 10/16/17 10/17/17 10/17/17 23:59 07:59 15:59 Intake Total 590 / 590 Output Total 650 / 650 400 / 400 Balance -60 / -60 -400 / -400 Intake: Oral 240 / 240 Blood Product 350 / 350 Rbcs Leuko Poor As-1 Unit 350 / 350 [id number] Output: Catheter 650 / 650 400 / 400 Other: Meal Dinner npo Percent of Meal Consumed 100% 0% Stool Size Copious Stool Consistency formed Stool Color Brown # Bowel Movements 1 Weight 132.6 kg Blood Glucose* 266 176 205 - General Appearance General appearance: Present: chronically ill, fatigue EENT: Present: ATNC, mucous membranes moist Neck: Present: no JVD, supple Respiratory: Present: clear (ant with transmitted upper airway sound bilat) Cardiology: Present: edema (LE/UE bilat), normal S1, normal S2 Gastrointestinal: Present: no tenderness, no guarding, obese Integumentary: Present: warm and dry Neurologic: Present: no focal deficit Musculoskeletal: Present: no deformities Psychiatric: Present: mood/affect appropriate, cooperative - Lab 10/16/17 05:22 10/16/17 05:22 Most recent lab results ABG pH 7.40 pH Units (7.32-7.45) 10/06/17 04:56 ABG pCO2 43 mmHg (35-45) 10/06/17 04:56 ABG pO2 68 mmHg (85-104) L 10/06/17 04:56 ABG HCO3 26 mEq/L (21-27) 10/06/17 04:56 ABG O2 Saturation 93 % (95-98) L 10/06/17 04:56 Calcium 8.8 mg/dL (8.6-10.3) 10/16/17 05:22 Phosphorus 3.9 mg/dL (2.7-4.5) 10/15/17 17:17 Magnesium 2.1 mg/dL (1.6-2.6) 10/15/17 17:17 Urine Creatinine 41 mg/dL 10/13/17 16:35 Urine Sodium 14.8 mEq/L 10/13/17 16:35 Urine Total Protein 24 mg/dL (1-14) H 10/13/17 16:35 - VTE Documentation of Mechanical Device: Intermittent pneumatic compression device Consult Discharge Plan - Plan Referrals: Radha Jnoes, KNURLING MACHINE OPERATOR [Primary Care Provider] -
[2017-10-17 14:23] LABS: Hematocrit 28.3 % (37.5-50.1); Hemoglobin 8.9 g/dL (12.9-16.9); Mean Corpuscular HGB Conc 31.4 g/dL (31.6-35.5); Mean Corpuscular Hemoglobin 30.6 pg (28.0-33.3); Mean Corpuscular Volume 97.3 fL (83.0-100.0); Mean Platelet Volume 8.9 fL (9.4-12.4); Platelet Count 137 K/mcL (140-400); Red Blood Count 2.91 M/mcL (4.19-5.50); Red Cell Distribution Width 16.5 % (11.5-14.5)
--- NOTE | 2017-10-17 16:10 | Internal Med Progress Note ---
Date of Encounter: 10/17/17 Time of Encounter: 16:04 - Assessment and plan (1) Acute respiratory failure with hypoxia Current Visit: Yes Status: Acute Assessment and plan: improving (2) Acute kidney injury superimposed on chronic kidney disease Current Visit: No Status: Acute Assessment and plan: High BUN possible GI bleeding with his hemoglobin trending down and could be prerenal failure with third spacing, Nephrology following patient. Renal function improved now 1.1 which is normal than regular baseline. (3) Volume overload Current Visit: Yes Status: Acute Assessment and plan: Okay to try for gentle diuresis. Qualifiers: Hypervolemia type: other Qualified Code(s): E87.79 - Other fluid overload (4) Anemia Current Visit: No Status: Acute Assessment and plan: Combination of iron deficiency anemia and anemia of chronic kidney disease, add iron, consider aranesp, Continue to monitor H&H Currently hemodynamically stable. GI consulted to rule out GIB IV Protonix BID EGD for today. Qualifiers: Anemia type: iron deficiency Iron deficiency anemia type: unspecified iron deficiency Qualified Code(s): D50.9 - Iron deficiency anemia, unspecified (5) Protein malnutrition Current Visit: Yes Status: Acute Assessment and plan: High protein formula. Dietary following. (6) Acute gastritis Current Visit: Yes Status: Acute Qualifiers: Gastritis type: unspecified gastritis Qualified Code(s): K29.00 - Acute gastritis without bleeding (7) Constipation by delayed colonic transit Current Visit: Yes Status: Acute (8) Bacteremia due to Escherichia coli Current Visit: Yes Status: Acute Assessment and plan: Patient wastreated with Ertapenem and ID following, has now completed antibiotic therapy. (9) Congestive heart failure Current Visit: Yes Status: Acute Qualifiers: Heart failure type: systolic Heart failure chronicity: chronic Qualified Code(s): I50.22 - Chronic systolic (congestive) heart failure (10) Diabetes mellitus Current Visit: No Status: Chronic Assessment and plan: will place on SSI. Accucheks. 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 H/H has been slowly dropping since July. hgb was 16.8 on 07/30/2017. No signs of bleeding. Will check FOBT. check iron studies. Probably best to consider IVC filter (14) Hypertension Current Visit: No Status: Chronic Qualifiers: Hypertension type: unspecified Qualified Code(s): I10 - Essential (primary ) hypertension (15) Pressure ulcer of coccygeal region Current Visit: No Status: Acute Qualifiers: Pressure ulcer stage: unstageable Qualified Code(s): L89.150 - Pressure ulcer of sacral region, unstageable (16) Septic shock Current Visit: Yes Status: Resolved - Time Spent With Patient Total time spent is greater than 50% in coordination of care (as documented) at patient's floor/unit and/or counseling patient: - Subjective Interval history: Family present at bedside. Patient has no complaints. Denies fevers/chills, n/v , chest pain. Edema pitting is persistent. - Constitutional Vitals: Temp Pulse Resp BP Pulse Ox 98.2 F 100 19 129/97 98 10/17/17 15:54 10/17/17 15:54 10/17/17 15:54 10/17/17 15:54 10/17/17 15:54 General appearance: Present: pleasant, no acute distress Exam: - Head Head exam: Present: atraumatic, normocephalic - Neck Neck exam general surgery: Present: supple, trachea midline. Absent: lymphadenopathy - Respiratory Respiratory exam: Present: decreased breath sounds, prolonged expiratory phase, rales (Right lung base). Absent: accessory muscle use, rhonchi, wheezes - Cardiovascular Cardiovascular exam: Present: RRR, +S1, +S2, systolic murmur (3/6). Absent: diastolic murmur, gallop, rubs - GI/Abdominal GI/Abdominal exam: Present: normal bowel sounds, soft, tenderness (Epigastric tenderness), no peritoneal signs. Absent: distended - Extremities Exam Extremities exam: Present: pedal edema (Bilateral pitting, 2+), warm, radial pulses palpable and symmetrical. Absent: calf tenderness, cyanotic Internal Medicine: Result - Labs CBC & Chem 7: 10/17/17 14:00 10/16/17 05:22 Labs: Short CBC 10/17/17 Range/Units 14:00 WBC 7.8 (4.3-11.1) K/mcL Hgb 8.9 L (12.9-16.9) g/dL Hct 28.3 L (37.5-50.1) % Plt Count 137 L (140-400) K/mcL - ABG Interpretation ABG results: ABG ABG pH 7.40 pH Units (7.32-7.45) 10/06/17 04:56 ABG pCO2 43 mmHg (35-45) 10/06/17 04:56 ABG pO2 68 mmHg (85-104) L 10/06/17 04:56 ABG O2 Saturation 93 % (95-98) L 10/06/17 04:56 PT/INR, D-dimer PT 17.9 Seconds (9.4-12.1) H 10/03/17 19:14 - Impressions Impressions Lumbar Spine CT 10/16/17 15:57 IMPRESSION: No evidence of osseous destruction to suggest osteomyelitis. No drainable soft tissue fluid collection. If there is ongoing clinical concern, recommend MRI with contrast. Severe multilevel degenerative disc disease, most pronounced from L2-L5, where there is severe canal narrowing. Unchanged grade 1 degenerative anterolisthesis of L4 on L5. D/ / 10/16/2017 22:39:40 Kvng Lopez / hakeem Interpreting Provider: Kvng Lopez - VTE Documentation of Mechanical Device: Intermittent pneumatic compression device Consult Discharge Plan - Plan Referrals: Radha Jones, COMMERCIAL INSTALLER [Primary Care Provider] -
[2017-10-17] MEDS ORDERED: *HR* Midazolam HCl 5 MG/5 ML VIAL IVP ONE (16:30)
[2017-10-17] MEDS ORDERED: *HR* FentaNYL (PF) 100 MCG/2 ML VIAL ONE (16:31)
[2017-10-17] MEDS ORDERED: 0.9 % Sodium Chloride 500 ML IVC SCH (17:00)
--- NOTE | 2017-10-17 17:02 | Infectious Disease Progress No ---
Date of Encounter: 10/17/17 Time of Encounter: 16:59 - Assessment and Plan (1) Septic shock Current Visit: Yes Status: Resolved The patient had three SIRS criteria plus hypotension requiring vasopressors and acute respiratory failure and lactic acidosis. Likely secondary to bacteremia and UTI. Improved. WBC trending down. Acute respiratory failure and lactic acidosis have resolved. Off pressors Blood cultures drawn 10/03/17 are positive 2/2 sets for E. coli ESBL. Repeat blood cultures drawn 10/07/17 are no growth (2) Bacteremia due to Escherichia coli Current Visit: Yes Status: Acute Causative organism: E. coli ESBL. Source: likely the urine. Blood cultures drawn 10/03/17 are positive 2/2 sets for E. coli ESBL. Repeat blood cultures drawn 10/07/17 are NGTD x 2 sets. may d/c ertapenem, received 13 days worth No further recommendations at this time. We were concerned about possible osteomyelitis because of this chronic wound on his coccyx but the CT is not suggestive and inflammatory markers are. Low so the probability of osteoarthritis is lower on my differential. Continue contact precautions per protocol. We will sign off, please let us know if there is anything else we can do. 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 coli ESBL. Has a history of ESBL E. coli in the urine (06/2016, 08/2017, 09/29/2017). Well-known to [facility]. 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 CT of the abdomen and pelvis completed air in the bladder lumen. Urology consulted and following. Continue antibiotics as above. Duration of treatment depends on the clinical picture. Bethea catheter placed 10/05/17 by the Urology team. (4) HCAP (healthcare-associated pneumonia) Current Visit: Yes Status: Acute Location: bilateral lower lobes. Causative organism likely viral. RIP positive for Enterovirus/Rhinovirus. CT of the chest completed 10/04/17 showed bilateral lower lobe opacities, likely related to pneumonia or atelectasis. Sputum culture is negative. S. pneumo and Legionella UAT negative. No further antibiotics required at this time. Continue Ertapenem for bacteremia and UTI as stated above. (5) Acute respiratory failure with hypoxia Current Visit: Yes Status: Acute Likely multifactorial: CHF + pneumonia. Resolved. Extubated 10/06/17. Further management per the pulmonology team. (6) Pressure ulcer of coccygeal region Current Visit: No Status: Acute Unstageable sacral ulcer currently being follow by wound care. Per wound care and nursing, clinically does not appear to be osteomyelitis, but ESR and CRP are elevated. Continue with current antibiotic regimen as above. Previous CT of the abdomen and pelvis did not reveal evidence of osteomyelitis. will get a CT lumbar spine and pelvis cehck inflammatory markers Qualifiers: Pressure ulcer stage: unstageable Qualified Code(s): L89.150 - Pressure ulcer of sacral region, unstageable (7) CKD (chronic kidney disease) Current Visit: No Status: Chronic Qualifiers: Chronic kidney disease stage: stage 3 (moderate) Qualified Code(s): N18.3 - Chronic kidney disease, stage 3 (moderate) (8) Diabetes mellitus Current Visit: No Status: Chronic Patient's accucheck upon arrival to ED was 130. Doubt hypoglycemia was cause of his altered mental status. SSI and accuchecks per primary team. Qualifiers: Diabetes mellitus type: type 2 Diabetes mellitus fci insulin use: without fci use Diabetes mellitus complication status: with kidney complications Diabetes mellitus complication detail: with chronic kidney disease Chronic kidney disease stage: stage 3 (moderate) Qualified Code(s): E11.22 - Type 2 diabetes mellitus with diabetic chronic kidney disease; N18.3 - Chronic kidney disease, stage 3 (moderate) (9) History of DVT (deep vein thrombosis) Current Visit: Yes Status: Acute (10) Hypertension Current Visit: No Status: Chronic Qualifiers: Hypertension type: unspecified Qualified Code(s): I10 - Essential (primary ) hypertension (11) Systolic heart failure Current Visit: Yes Status: Chronic Qualifiers: Heart failure chronicity: acute on chronic Qualified Code(s): I50.23 - Acute on chronic systolic (congestive) heart failure - Subjective Interval history: Patient seen and examined. Appears comfortable. Nursing at bedside. patient tells me that he's feeling okay. No chest pain no shortenss of breath, no diarrhea. CT of the lumbar spine noted and there is no osteomyelitis ESR down to 50 Infect Dis PN-Objective Data - Labs CBC & Chem 7: 10/17/17 14:00 10/16/17 05:22 Labs: Laboratory Results - last 24 hr 10/16/17 10/16/17 10/17/17 09:41 19:37 05:09 WBC RBC Hgb Hct MCV MCH MCHC RDW Plt Count MPV ESR 54 H POC Glucose 266 H C-Reactive Protein Crossmatch See Detail 10/17/17 10/17/17 05:09 14:00 WBC 7.8 RBC 2.91 L Hgb 8.9 L Hct 28.3 L MCV 97.3 MCH 30.6 MCHC 31.4 L RDW 16.5 H Plt Count 137 L MPV 8.9 L ESR POC Glucose C-Reactive Protein 103 H Crossmatch Cultures: Cultures 10/07/17 04:31 Blood Culture - Final Peripheral Venipuncture No growth. Final report. 10/07/17 04:25 Blood Culture - Final Peripheral Venipuncture No growth. Final report. 10/04/17 16:00 Sputum Culture - Final Sputum 10/04/17 10:05 Legionella Antigen - Final Urine,Clean Catch Streptococcus pneumoniae Antigen (M - Final Serology 10/13/17 10/05/17 10/04/17 Range/Units 16:35 18:36 15:40 Urine Creatinine 41 mg/dL Urine Microalbumin 55 mg/L Microalb/Creat Ratio 134 H (Less than 30) mcg/mg Protein/Creatinin Ratio 0.59 H (0.00-0.20) mg/mg Urine Sodium 14.8 mEq/L Urine Urea Nitrogen 761 mg/dL Urine Total Protein 24 H (1-14) mg/dL Nasal Screen MRSA (PCR) Positive A (Negative) Chlamy pneumoniae PCR Not Detected (Not Detect) Adenovirus (PCR) Not Detected (Not Detect) B. pertussis DNA (PCR) Not Detected (Not Detect) B.parapertussis DNA PCR Not Detected (Not Detect) Coronavirus OC43 (PCR) Not Detected (Not Detect) Coronavirus HKU1 (PCR) Not Detected (Not Detect) Coronavirus 229E (PCR) Not Detected (Not Detect) Coronavirus NL63 (PCR) Not Detected (Not Detect) Human Metapneumovir PCR Not Detected (Not Detect) Influenza A (H1) PCR Not Detected (Not Detect) Influenza A (H3) PCR Not Detected (Not Detect) Influenza Type B (PCR) Not Detected (Not Detect) M.pneumoniae DNA (PCR) Not Detected (Not Detect) Parainfluenza 1 (PCR) Not Detected (Not Detect) Parainfluenza 2 (PCR) Not Detected (Not Detect) Parainfluenza 3 (PCR) Not Detected (Not Detect) Parainfluenza 4 (PCR) Not Detected (Not Detect) RSV (PCR) Not Detected (Not Detect) Entero/Rhino (PCR) DETECTED A (Not Detect) - Impressions Impressions Lumbar Spine CT 10/16/17 15:57 IMPRESSION: No evidence of osseous destruction to suggest osteomyelitis. No drainable soft tissue fluid collection. If there is ongoing clinical concern, recommend MRI with contrast. Severe multilevel degenerative disc disease, most pronounced from L2-L5, where there is severe canal narrowing. Unchanged grade 1 degenerative anterolisthesis of L4 on L5. D/ / 10/16/2017 22:39:40 Kvng Lopez / hakeem Interpreting Provider: Kvng Lopez Exam - Constitutional Vitals: Temp Pulse Resp BP Pulse Ox 98.2 F 92 18 126/80 95 10/17/17 16:51 10/17/17 16:51 10/17/17 16:51 10/17/17 16:51 10/17/17 16:51 General appearance: cooperative, no febrile - Respiratory Respiratory exam: Present: CTAB - VTE Documentation of Mechanical Device: Intermittent pneumatic compression device Consult Discharge Plan - Plan Referrals: Radha Jones, FARM HAND [Primary Care Provider] -
[2017-10-17] MEDS ORDERED: *HR* Midazolam HCl 2 MG/2 ML VIAL IVP ONE (17:23)
[2017-10-17] MEDS ORDERED: Tetracaine/Benzocaine/Butamben 200MG/SPRAY (100SPY/BOT) MM ONE (17:23)
[2017-10-17] MEDS ORDERED: Simethicone 40 MG/0.6 ML MLS IR ONE (17:23)
[2017-10-17] MEDS ORDERED: *HR* FentaNYL (PF) 100 MCG/2 ML VIAL IVP ONE (17:23)
--- NOTE | 2017-10-17 17:23 | Pre-Sedation Evaluation ---
Pre-sedation evaluation - Pre-sedation checklist Date of procedure: 10/17/17 Procedure: [facility] Recent Vitals: Last Vital Signs Temp 98.2 F 10/17/17 16:51 Pulse 107 10/17/17 17:01 Resp 18 10/17/17 17:01 BP 121/69 10/17/17 17:01 Pulse Ox 98 10/17/17 17:01 H&P (including ROS) documented in medical record: Yes Previous reaction to sedatives/anesthetics: No Dietary Status: NPO after Midnight Dentition: No loose teeth or bridges ASA Classification *see protocol: CLASS III-Severe systemic disease Plan of Care: Pt appropriate candidate for procedure/moderate/conscious sedation , Risks/benefits of procedure/sedation discussed w/ patient/family
[2017-10-17] MEDS: Furosemide 40 MG/4 ML VIAL IVP SCH (22:45)
[2017-10-18] MEDS: Ipratropium/Albuterol Neb 3 ML IH SCH ×4 (04:40→21:48)
[2017-10-18 05:47] LABS: Basophils % 0.4 %; Eosinophils # 0.1 K/mcL (0.0-0.6); Eosinophils % 0.9 %; Hematocrit 28.6 % (37.5-50.1); Hemoglobin 9.4 g/dL (12.9-16.9); Immature Granulocytes % 1.6 % (0-4); Lymphocytes # 0.5 K/mcL (0.6-4.6); Lymphocytes % 6.7 %; Mean Corpuscular HGB Conc 32.9 g/dL (31.6-35.5); Mean Corpuscular Hemoglobin 31.8 pg (28.0-33.3); Mean Corpuscular Volume 96.6 fL (83.0-100.0); Mean Platelet Volume 8.6 fL (9.4-12.4); Monocytes # 0.6 K/mcL (0.0-1.3); Monocytes % 7.6 %; Neutrophils # 6.7 K/mcL (1.6-8.9); Platelet Count 163 K/mcL (140-400); Red Blood Count 2.96 M/mcL (4.19-5.50); Red Cell Distribution Width 16.8 % (11.5-14.5); Segmented Neutrophils % 82.8 %
[2017-10-18 06:05] LABS: BUN/Creatinine Ratio 67 (6-26); Blood Urea Nitrogen 64 mg/dL (8-23); Calcium 8.8 mg/dL (8.6-10.3); Carbon Dioxide 28 mEq/L (23-29); Chloride 102 mEq/L (98-107); Glucose 201 mg/dL (70-105); Osmolality,Calculated 312 (280-300); Potassium 4.3 mEq/L (3.5-5.1); Sodium 139 mEq/L (136-145); eGFR For African Americans > 60 (> 60); eGFR For Non-African Americans > 60 (> 60)
[2017-10-18] MEDS: Insulin LISPRO 300 UNITS/3 ML VIAL SQ SCH ×4 (09:43→22:45)
[2017-10-18] MEDS: Megestrol Acetate 400 MG/10 ML UDC PO SCH (09:45)
[2017-10-18] MEDS: Acetaminophen 325 MG TABLET PO SCH ×3 (09:45→22:43)
[2017-10-18] MEDS: Gabapentin 300 MG CAPSULE PO SCH ×2 (09:45→22:43)
[2017-10-18] MEDS: Furosemide 40 MG/4 ML VIAL IVP SCH (09:45)
[2017-10-18] MEDS: Benzonatate 100 MG CAPSULE PO SCH ×3 (09:45→22:43)
[2017-10-18] MEDS: *HR* Digoxin 0.125 MG TABLET PO SCH (09:45)
[2017-10-18] MEDS: Thiamine (B-1) 100 MG TABLET PO SCH ×2 (09:46→22:43)
[2017-10-18] MEDS: Apixaban 5 MG TABLET PO SCH ×2 (11:46→22:44)
--- NOTE | 2017-10-18 12:58 | Nephrology Progress Note ---
Date of Encounter: 10/18/17 Time of Encounter: 12:05 - Assessment and Plan (1) CHF exacerbation Current Visit: Yes Status: Acute Continue strict I/Os Can try to diurese gently when stable Qualifiers: Heart failure type: systolic Qualified Code(s): I50.23 - Acute on chronic systolic (congestive) heart failure (2) CKD (chronic kidney disease) stage 3, GFR 30-59 ml/min Current Visit: Yes Status: Acute SCr very good at 1.17, GFR 56 as of yesterday UOP noted at 1850cc in the past 24hrs still very good Urine shows some proteinuria but not nephrotic (3) Hypotension Current Visit: Yes Status: Acute Stable at 100-120s systolic, continue midodrine s/p albumin Qualifiers: Hypotension type: orthostatic hypotension Qualified Code(s): I95.1 - Orthostatic hypotension Subjective Principal diagnosis: Septic shock, Acue respiratory failure Interval history: Pt seen and examined with son at bedside who reports family still deceding on correction care. Pt was working to PT at the time of this eval and is quite deconditioned. No new complaints however. Objective - Vital Signs Vital signs: Vital Signs Temp Pulse Resp BP Pulse Ox 10/18/17 11:35 97.9 F 75 20 103/66 96 10/18/17 07:13 98.9 F 85 20 129/87 100 10/18/17 04:44 97 18 118/82 100 10/18/17 04:40 18 100 10/18/17 00:46 91 18 98/62 93 10/17/17 22:32 18 96 10/17/17 22:07 98.1 F 97 17 102/73 96 10/17/17 18:45 80 16 107/72 95 10/17/17 18:30 90 16 111/66 94 10/17/17 18:15 70 16 112/59 99 10/17/17 18:00 100 16 115/63 100 10/17/17 17:40 95 16 100/50 98 10/17/17 17:35 106 16 101/62 94 10/17/17 17:30 70 16 106/53 96 10/17/17 17:25 110 18 120/72 98 10/17/17 17:01 107 18 121/69 98 10/17/17 16:51 98.2 F 92 18 126/80 95 10/17/17 15:54 98.2 F 100 19 129/97 98 10/17/17 15:48 16 99 Intake and Output 10/17/17 10/18/17 10/18/17 23:59 07:59 15:59 Intake Total 200 / 200 240 / 240 Output Total 400 / 400 1350 / 1350 Balance -200 / -200 -1350 / -1350 240 / 240 Intake: IV Fluids 200 / 200 0.9 % Sodium Chloride 500 ML @ 200 / 200 50 mls/hr IVC .Q10H PAWAN Rx#: [id number] Oral 240 / 240 Output: Catheter 400 / 400 1350 / 1350 Other: Meal Lunch Percent of Meal Consumed 75% Stool Size Moderate Stool Consistency soft formed Stool Color Brown # Bowel Movements 1 Blood Glucose* 253 201 251 - Lab 10/18/17 04:00 10/18/17 04:00 Most recent lab results ABG pH 7.40 pH Units (7.32-7.45) 10/06/17 04:56 ABG pCO2 43 mmHg (35-45) 10/06/17 04:56 ABG pO2 68 mmHg (85-104) L 10/06/17 04:56 ABG HCO3 26 mEq/L (21-27) 10/06/17 04:56 ABG O2 Saturation 93 % (95-98) L 10/06/17 04:56 Calcium 8.8 mg/dL (8.6-10.3) 10/18/17 04:00 Phosphorus 3.9 mg/dL (2.7-4.5) 10/15/17 17:17 Magnesium 2.1 mg/dL (1.6-2.6) 10/15/17 17:17 Urine Creatinine 41 mg/dL 10/13/17 16:35 Urine Sodium 14.8 mEq/L 10/13/17 16:35 Urine Total Protein 24 mg/dL (1-14) H 10/13/17 16:35 - VTE Documentation of Mechanical Device: Intermittent pneumatic compression device Consult Discharge Plan - Plan Referrals: Radha Jones, AUDIOLOGY TECHNICIAN [Primary Care Provider] -
--- NOTE | 2017-10-18 16:24 | Internal Med Progress Note ---
Date of Encounter: 10/18/17 Time of Encounter: 16:22 - Assessment and plan (1) Acute respiratory failure with hypoxia Current Visit: Yes Status: Acute Assessment and plan: improving Continue IV diuresis cautiously, likely needs few more days of IV diuresis (2) Acute kidney injury superimposed on chronic kidney disease Current Visit: No Status: Acute Assessment and plan: High BUN possible GI bleeding with his hemoglobin trending down and could be prerenal failure with third spacing, Nephrology following patient. Renal function improved now 1.1 which is normal than regular baseline. (3) Volume overload Current Visit: Yes Status: Acute Assessment and plan: Okay to try for gentle diuresis. Qualifiers: Hypervolemia type: other Qualified Code(s): E87.79 - Other fluid overload (4) Anemia Current Visit: No Status: Acute Assessment and plan: Combination of iron deficiency anemia and anemia of chronic kidney disease, add iron, consider aranesp, Continue to monitor H&H Currently hemodynamically stable. GI consulted to rule out GIB IV Protonix BID EGD for today. Qualifiers: Anemia type: iron deficiency Iron deficiency anemia type: unspecified iron deficiency Qualified Code(s): D50.9 - Iron deficiency anemia, unspecified (5) Protein malnutrition Current Visit: Yes Status: Acute Assessment and plan: High protein formula. Dietary following. (6) Acute gastritis Current Visit: Yes Status: Acute Assessment and plan: Start carafate Continue daily ppi Qualifiers: Gastritis type: unspecified gastritis Qualified Code(s): K29.00 - Acute gastritis without bleeding (7) Constipation by delayed colonic transit Current Visit: Yes Status: Acute (8) Bacteremia due to Escherichia coli Current Visit: Yes Status: Acute Assessment and plan: Patient wastreated with Ertapenem and ID following, has now completed antibiotic therapy. (9) Congestive heart failure Current Visit: Yes Status: Acute Assessment and plan: Continue IV diuresis Qualifiers: Heart failure type: systolic Heart failure chronicity: chronic Qualified Code(s): I50.22 - Chronic systolic (congestive) heart failure (10) Diabetes mellitus Current Visit: No Status: Chronic Assessment and plan: will place on SSI. Accucheks. 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 H/H has been slowly dropping since July. hgb was 16.8 on 07/30/2017. No signs of bleeding. Continue Eliquis 2.5 mg BID (14) Hypertension Current Visit: No Status: Chronic Assessment and plan: Currently BP normal. Runs low, takes midodrine. Continue midodrine Qualifiers: Hypertension type: unspecified Qualified Code(s): I10 - Essential (primary ) hypertension (15) Pressure ulcer of coccygeal region Current Visit: No Status: Acute Qualifiers: Pressure ulcer stage: unstageable Qualified Code(s): L89.150 - Pressure ulcer of sacral region, unstageable (16) Septic shock Current Visit: Yes Status: Resolved Assessment and plan: Resolved - Time Spent With Patient Total time spent is greater than 50% in coordination of care (as documented) at patient's floor/unit and/or counseling patient: - Subjective Interval history: Family present at bedside. Denies fevers/chills, n/v, chest pain. Patient noting today that he has poor appetite. He usually enjoys food but not in the past week. He thinks that maybe Megace is helping but hes not absolutely sure. - Constitutional Vitals: Temp Pulse Resp BP Pulse Ox 98.8 F 74 20 112/80 99 10/18/17 15:40 10/18/17 15:40 10/18/17 15:40 10/18/17 15:40 10/18/17 15:40 General appearance: Present: pleasant, no acute distress Exam: - Head Head exam: Present: atraumatic, normocephalic - Neck Neck exam general surgery: Present: supple, trachea midline. Absent: lymphadenopathy - Respiratory Respiratory exam: Present: decreased breath sounds, prolonged expiratory phase, rales (Right lung base). Absent: accessory muscle use, rhonchi, wheezes - Cardiovascular Cardiovascular exam: Present: RRR, +S1, +S2, systolic murmur (3/6). Absent: diastolic murmur, gallop, rubs - GI/Abdominal GI/Abdominal exam: Present: normal bowel sounds, soft, tenderness (Epigastric tenderness), no peritoneal signs. Absent: distended - Extremities Exam Extremities exam: Present: pedal edema (Bilateral pitting, 2+), warm, radial pulses palpable and symmetrical. Absent: calf tenderness, cyanotic Internal Medicine: Result - Labs CBC & Chem 7: 10/18/17 04:00 10/18/17 04:00 Labs: Short CBC 10/18/17 Range/Units 04:00 WBC 8.1 (4.3-11.1) K/mcL Hgb 9.4 L (12.9-16.9) g/dL Hct 28.6 L (37.5-50.1) % Plt Count 163 (140-400) K/mcL Neutrophils # 6.7 (1.6-8.9) K/mcL BMP 10/18/17 04:00 Sodium 139 Potassium 4.3 Chloride 102 Carbon Dioxide 28 BUN 64 H Creatinine 0.96 Glucose 201 H Calcium 8.8 - ABG Interpretation ABG results: ABG ABG pH 7.40 pH Units (7.32-7.45) 10/06/17 04:56 ABG pCO2 43 mmHg (35-45) 10/06/17 04:56 ABG pO2 68 mmHg (85-104) L 10/06/17 04:56 ABG O2 Saturation 93 % (95-98) L 10/06/17 04:56 PT/INR, D-dimer PT 17.9 Seconds (9.4-12.1) H 10/03/17 19:14 - Impressions Impressions Chest X-Ray 10/15/17 17:01 IMPRESSION: Stable to slightly increased vascular congestion and streaky perihilar opacities with probable small bilateral pleural effusions. Findings likely represent sequela of pulmonary edema. Atypical infection is also in the differential. D/ / 10/15/2017 22:55:00 Kvng Porras MD / alana Interpreting Provider: Kvng Porras MD Lumbar Spine CT 10/16/17 15:57 IMPRESSION: No evidence of osseous destruction to suggest osteomyelitis. No drainable soft tissue fluid collection. If there is ongoing clinical concern, recommend MRI with contrast. Severe multilevel degenerative disc disease, most pronounced from L2-L5, where there is severe canal narrowing. Unchanged grade 1 degenerative anterolisthesis of L4 on L5. D/ / 10/16/2017 22:39:40 Kvng Lopez / hakeem Interpreting Provider: Kvng Lopez - VTE Documentation of Mechanical Device: Intermittent pneumatic compression device Consult Discharge Plan - Plan Referrals: Radha Jones, TAXATION AGENT [Primary Care Provider] -
[2017-10-19] MEDS: Ipratropium/Albuterol Neb 3 ML IH SCH ×4 (04:08→23:03)
[2017-10-19 04:47] LABS: Basophils % 0.4 %; Eosinophils # 0.3 K/mcL (0.0-0.6); Eosinophils % 3.8 %; Hematocrit 27.9 % (37.5-50.1); Immature Granulocytes % 1.1 % (0-4); Lymphocytes # 0.6 K/mcL (0.6-4.6); Lymphocytes % 7.6 %; Mean Corpuscular HGB Conc 32.3 g/dL (31.6-35.5); Mean Corpuscular Hemoglobin 31.5 pg (28.0-33.3); Mean Corpuscular Volume 97.6 fL (83.0-100.0); Monocytes # 0.6 K/mcL (0.0-1.3); Monocytes % 8.5 %; Neutrophils # 5.8 K/mcL (1.6-8.9); Platelet Count 137 K/mcL (140-400); Red Blood Count 2.86 M/mcL (4.19-5.50); Red Cell Distribution Width 16.9 % (11.5-14.5); Segmented Neutrophils % 78.6 %
[2017-10-19 04:59] LABS: BUN/Creatinine Ratio 69 (6-26); Blood Urea Nitrogen 66 mg/dL (8-23); Calcium 8.5 mg/dL (8.6-10.3); Carbon Dioxide 31 mEq/L (23-29); Chloride 103 mEq/L (98-107); Glucose 171 mg/dL (70-105); Osmolality,Calculated 311 (280-300); Potassium 4.2 mEq/L (3.5-5.1); Sodium 139 mEq/L (136-145); eGFR For African Americans > 60 (> 60); eGFR For Non-African Americans > 60 (> 60)
[2017-10-19] MEDS: Furosemide 40 MG/4 ML VIAL IVP SCH (08:14)
[2017-10-19] MEDS: Thiamine (B-1) 100 MG TABLET PO SCH ×2 (08:14→20:25)
[2017-10-19] MEDS: Megestrol Acetate 400 MG/10 ML UDC PO SCH (08:14)
[2017-10-19] MEDS: Acetaminophen 325 MG TABLET PO SCH ×3 (08:15→20:25)
[2017-10-19] MEDS: Apixaban 5 MG TABLET PO SCH ×2 (08:15→20:26)
[2017-10-19] MEDS: Gabapentin 300 MG CAPSULE PO SCH ×2 (08:16→20:25)
[2017-10-19] MEDS: Benzonatate 100 MG CAPSULE PO SCH ×3 (08:16→20:25)
[2017-10-19] MEDS: Insulin LISPRO 300 UNITS/3 ML VIAL SQ SCH ×4 (08:16→21:23)
--- NOTE | 2017-10-19 12:29 | Internal Med Progress Note ---
Date of Encounter: 10/19/17 Time of Encounter: 12:27 - Assessment and plan (1) Acute respiratory failure with hypoxia Current Visit: Yes Status: Acute Assessment and plan: improving Back on room air , but did need NC at some point today Continue IV diuresis cautiously, likely needs few more days of IV diuresis Lasix 40 mg IV daily Disposition: Patient not safe to discharge home as he is too weak, he is better suited and safe to go to ECF. PT/OT also recommends. (2) Acute kidney injury superimposed on chronic kidney disease Current Visit: No Status: Acute Assessment and plan: High BUN possible GI bleeding with his hemoglobin trending down and could be prerenal failure with third spacing, Nephrology consulted for assistance with management. Renal function improved within normal limits (3) Volume overload Current Visit: Yes Status: Acute Assessment and plan: Continue gentle diuresis. Strict I/O Daily weights Lasix IV Qualifiers: Hypervolemia type: other Qualified Code(s): E87.79 - Other fluid overload (4) Anemia Current Visit: No Status: Acute Assessment and plan: Combination of iron deficiency anemia and anemia of chronic kidney disease, add iron, consider aranesp, Continue to monitor H&H Currently hemodynamically stable. EGD done showed gastritis, no active bleed. Chronic anemia managed as outpatient. Qualifiers: Anemia type: iron deficiency Iron deficiency anemia type: unspecified iron deficiency Qualified Code(s): D50.9 - Iron deficiency anemia, unspecified (5) Protein malnutrition Current Visit: Yes Status: Acute Assessment and plan: High protein formula. Dietary following. Continue Megace Trying carafate to see if this improves his appetite with treating gastritis (6) Acute gastritis Current Visit: Yes Status: Acute Qualifiers: Gastritis type: unspecified gastritis Qualified Code(s): K29.00 - Acute gastritis without bleeding (7) Constipation by delayed colonic transit Current Visit: Yes Status: Acute (8) Bacteremia due to Escherichia coli Current Visit: Yes Status: Acute (9) Congestive heart failure Current Visit: Yes Status: Acute Qualifiers: Heart failure type: systolic Heart failure chronicity: chronic Qualified Code(s): I50.22 - Chronic systolic (congestive) heart failure (10) Diabetes mellitus Current Visit: No Status: Chronic Qualifiers: Diabetes mellitus type: type 2 Diabetes mellitus local intermodal truck driver insulin use: without local intermodal truck driver use Diabetes mellitus complication status: with kidney complications Diabetes mellitus complication detail: with chronic kidney disease Chronic kidney disease stage: stage 3 (moderate) Qualified Code(s): E11.22 - Type 2 diabetes mellitus with diabetic chronic kidney disease; N18.3 - Chronic kidney disease, stage 3 (moderate) (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 (12) HCAP (healthcare-associated pneumonia) Current Visit: Yes Status: Acute (13) History of DVT (deep vein thrombosis) Current Visit: Yes Status: Acute (14) Hypertension Current Visit: No Status: Chronic Qualifiers: Hypertension type: unspecified Qualified Code(s): I10 - Essential (primary ) hypertension (15) Pressure ulcer of coccygeal region Current Visit: No Status: Acute Qualifiers: Pressure ulcer stage: unstageable Qualified Code(s): L89.150 - Pressure ulcer of sacral region, unstageable (16) Septic shock Current Visit: Yes Status: Resolved - Time Spent With Patient Total time spent is greater than 50% in coordination of care (as documented) at patient's floor/unit and/or counseling patient: - Subjective Interval history: Family present at bedside. Denies fevers/chills, n/v, chest pain. 10/18: had very poor appetite He usually enjoys food but not in the past week. He thinks that maybe Megace is helping but hes not absolutely sure. 10/19: states appetite is improving today, carafate was added day prior to treat gastritis to increase appetite. - Constitutional Vitals: Temp Pulse Resp BP Pulse Ox 97.6 F 105 16 118/71 100 10/19/17 11:14 10/19/17 11:14 10/19/17 11:14 10/19/17 11:14 10/19/17 11:14 General appearance: Present: pleasant, no acute distress Exam: - Head Head exam: Present: atraumatic, normocephalic - Neck Neck exam general surgery: Present: supple, trachea midline. Absent: lymphadenopathy - Respiratory Respiratory exam: Present: decreased breath sounds, prolonged expiratory phase, rales (Right lung base). Absent: accessory muscle use, rhonchi, wheezes - Cardiovascular Cardiovascular exam: Present: RRR, +S1, +S2, systolic murmur (3/6). Absent: diastolic murmur, gallop, rubs - GI/Abdominal GI/Abdominal exam: Present: normal bowel sounds, soft, tenderness (Epigastric tenderness), no peritoneal signs. Absent: distended - Extremities Exam Extremities exam: Present: pedal edema (Bilateral pitting, 2+), warm, radial pulses palpable and symmetrical. Absent: calf tenderness, cyanotic Internal Medicine: Result - Labs CBC & Chem 7: 10/19/17 04:00 10/19/17 04:00 Labs: Short CBC 10/19/17 Range/Units 04:00 WBC 7.4 (4.3-11.1) K/mcL Hgb 9.0 L (12.9-16.9) g/dL Hct 27.9 L (37.5-50.1) % Plt Count 137 L (140-400) K/mcL Neutrophils # 5.8 (1.6-8.9) K/mcL BMP 10/19/17 04:00 Sodium 139 Potassium 4.2 Chloride 103 Carbon Dioxide 31 H BUN 66 H Creatinine 0.95 Glucose 171 H Calcium 8.5 L - ABG Interpretation ABG results: ABG ABG pH 7.40 pH Units (7.32-7.45) 10/06/17 04:56 ABG pCO2 43 mmHg (35-45) 10/06/17 04:56 ABG pO2 68 mmHg (85-104) L 10/06/17 04:56 ABG O2 Saturation 93 % (95-98) L 10/06/17 04:56 PT/INR, D-dimer PT 17.9 Seconds (9.4-12.1) H 10/03/17 19:14 - VTE Documentation of Mechanical Device: Intermittent pneumatic compression device Consult Discharge Plan - Plan Referrals: Radha Jones, SPECIAL EFFECTS SPECIALIST [Primary Care Provider] -
--- NOTE | 2017-10-19 14:54 | Nephrology Progress Note ---
Date of Encounter: 10/19/17 Time of Encounter: 12:00 - Assessment and Plan (1) CHF exacerbation Current Visit: Yes Status: Acute Continue strict I/Os with fluid restriction Continue laisx 40mg iv daily UOP great at 2150cc in the past 24hrs Qualifiers: Heart failure type: systolic Qualified Code(s): I50.23 - Acute on chronic systolic (congestive) heart failure (2) CKD (chronic kidney disease) stage 3, GFR 30-59 ml/min Current Visit: Yes Status: Acute SCr very good and past baseline at 0.95, GFR >60 likely due to decreased muscle mass Urine shows some proteinuria but not nephrotic Will sign off, please consult prn (3) Hypotension Current Visit: Yes Status: Acute Stable at 100-120s systolic, continue midodrine s/p albumin Qualifiers: Hypotension type: orthostatic hypotension Qualified Code(s): I95.1 - Orthostatic hypotension Subjective Principal diagnosis: Septic shock, Acue respiratory failure Interval history: Pt seen and examined resting but arousable with no complaints Objective - Vital Signs Vital signs: Vital Signs Temp Pulse Resp BP Pulse Ox 10/19/17 11:14 97.6 F 105 16 118/71 100 10/19/17 10:59 16 99 10/19/17 07:23 97.8 F 71 16 120/57 99 10/19/17 04:08 20 99 10/19/17 04:00 96.7 F L 107 18 108/83 100 10/19/17 00:27 96.7 F L 88 18 101/74 100 10/18/17 21:48 18 99 10/18/17 21:00 96.7 F L 99 20 110/74 100 10/18/17 15:40 98.8 F 74 20 112/80 99 10/18/17 15:28 18 100 Intake and Output 10/18/17 10/19/17 10/19/17 23:59 07:59 15:59 Intake Total 240 / 240 0 / 0 120 / 120 Output Total 200 / 200 900 / 900 900 / 900 Balance 40 / 40 -900 / -900 -780 / -780 Intake: Oral 240 / 240 0 / 0 120 / 120 Output: Urine 200 / 200 Catheter 900 / 900 900 / 900 Other: Meal Dinner Breakfast Percent of Meal Consumed 25% 90% Stool Size Small Stool Consistency loose Weight 132.8 kg Blood Glucose* 204 169 213 Patient Weight 10/19/17 23:59 Weight 132.8 kg - General Appearance General appearance: Present: chronically ill, fatigue, frail EENT: Present: ATNC, mucous membranes moist Neck: Present: no JVD, supple Respiratory: Present: clear Cardiology: Present: edema (UE/LE bilat), normal S1, normal S2 Gastrointestinal: Present: no tenderness, no guarding, obese Integumentary: Present: warm and dry Neurologic: Present: no focal deficit Musculoskeletal: Present: no deformities Psychiatric: Present: mood/affect appropriate, cooperative - Lab 10/19/17 04:00 10/19/17 04:00 Most recent lab results ABG pH 7.40 pH Units (7.32-7.45) 10/06/17 04:56 ABG pCO2 43 mmHg (35-45) 10/06/17 04:56 ABG pO2 68 mmHg (85-104) L 10/06/17 04:56 ABG HCO3 26 mEq/L (21-27) 10/06/17 04:56 ABG O2 Saturation 93 % (95-98) L 10/06/17 04:56 Calcium 8.5 mg/dL (8.6-10.3) L 10/19/17 04:00 Phosphorus 3.9 mg/dL (2.7-4.5) 10/15/17 17:17 Magnesium 2.1 mg/dL (1.6-2.6) 10/15/17 17:17 Urine Creatinine 41 mg/dL 10/13/17 16:35 Urine Sodium 14.8 mEq/L 10/13/17 16:35 Urine Total Protein 24 mg/dL (1-14) H 10/13/17 16:35 - VTE Documentation of Mechanical Device: Intermittent pneumatic compression device Consult Discharge Plan - Plan Referrals: Radha Jones, 2 YEAR OLDS PRESCHOOL TEACHER [Primary Care Provider] -
[2017-10-19 16:00] LABS: C282Y Hemochromatosis Mutation NEGATIVE; H63D Hemochromatosis Mutation HETEROZYGOUS; HFE Specimen Type WHOLE BLOOD; S65C Hemochromatosis Mutation NEGATIVE
[2017-10-20] MEDS: Ipratropium/Albuterol Neb 3 ML IH SCH ×3 (04:41→16:00)
[2017-10-20 05:01] LABS: Basophils % 0.6 %; Eosinophils # 0.2 K/mcL (0.0-0.6); Eosinophils % 3.1 %; Hematocrit 29.1 % (37.5-50.1); Hemoglobin 9.1 g/dL (12.9-16.9); Immature Granulocytes % 0.7 % (0-4); Lymphocytes # 0.5 K/mcL (0.6-4.6); Lymphocytes % 7.6 %; Mean Corpuscular HGB Conc 31.3 g/dL (31.6-35.5); Mean Corpuscular Hemoglobin 30.5 pg (28.0-33.3); Mean Corpuscular Volume 97.7 fL (83.0-100.0); Mean Platelet Volume 8.9 fL (9.4-12.4); Monocytes # 0.6 K/mcL (0.0-1.3); Monocytes % 8.6 %; Neutrophils # 5.7 K/mcL (1.6-8.9); Platelet Count 137 K/mcL (140-400); Red Blood Count 2.98 M/mcL (4.19-5.50); Segmented Neutrophils % 79.4 %
[2017-10-20 05:21] LABS: BUN/Creatinine Ratio 63 (6-26); Blood Urea Nitrogen 64 mg/dL (8-23); Calcium 8.6 mg/dL (8.6-10.3); Carbon Dioxide 30 mEq/L (23-29); Chloride 100 mEq/L (98-107); Glucose 181 mg/dL (70-105); Osmolality,Calculated 309 (280-300); Potassium 3.9 mEq/L (3.5-5.1); Sodium 138 mEq/L (136-145); eGFR For African Americans > 60 (> 60); eGFR For Non-African Americans > 60 (> 60)
[2017-10-20] MEDS: Insulin LISPRO 300 UNITS/3 ML VIAL SQ SCH ×3 (08:05→16:46)
[2017-10-20] MEDS: Thiamine (B-1) 100 MG TABLET PO SCH ×2 (08:06→21:21)
[2017-10-20] MEDS: Apixaban 5 MG TABLET PO SCH ×2 (08:06→21:21)
[2017-10-20] MEDS: *HR* Digoxin 0.125 MG TABLET PO SCH (08:06)
[2017-10-20] MEDS: Benzonatate 100 MG CAPSULE PO SCH ×3 (08:07→21:21)
[2017-10-20] MEDS: Acetaminophen 325 MG TABLET PO SCH ×3 (08:07→21:21)
[2017-10-20] MEDS: Gabapentin 300 MG CAPSULE PO SCH ×2 (08:07→21:21)
[2017-10-20] MEDS: Megestrol Acetate 400 MG/10 ML UDC PO SCH (08:07)
[2017-10-20] MEDS: Furosemide 40 MG/4 ML VIAL IVP SCH (08:07)
--- NOTE | 2017-10-20 17:27 | Discharge Summary ---
Orders not resulted at time of discharge: Pending orders 10/21/17 04:00 BMP [Basic Metabolic Panel] AM 0400 Complete Blood Count [HEME] AM 0400 10/22/17 04:00 BMP [Basic Metabolic Panel] AM 0400 Complete Blood Count [HEME] AM 0400 Date of Encounter: 10/20/17 Time of Encounter: 10:15 - Discharge Diagnosis (1) Septic shock Priority: Primary Status: Resolved (2) Bacteremia due to Escherichia coli Priority: Secondary Status: Resolved (3) HCAP (healthcare-associated pneumonia) Priority: Secondary Status: Resolved (4) Acute kidney injury superimposed on chronic kidney disease Priority: Secondary Status: Resolved (5) Hypertension Priority: Secondary Status: Chronic Qualifiers: Hypertension type: unspecified Qualified Code(s): I10 - Essential (primary ) hypertension (6) Diabetes mellitus Priority: Secondary Status: Chronic Qualifiers: Diabetes mellitus type: type 2 Diabetes mellitus mcc insulin use: without terminal system operator use Diabetes mellitus complication status: with kidney complications Diabetes mellitus complication detail: with chronic kidney disease Chronic kidney disease stage: stage 3 (moderate) Qualified Code(s): E11.22 - Type 2 diabetes mellitus with diabetic chronic kidney disease; N18.3 - Chronic kidney disease, stage 3 (moderate) (7) Volume overload Priority: Secondary Status: Chronic Qualifiers: Hypervolemia type: other Qualified Code(s): E87.79 - Other fluid overload (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 (9) Anemia Priority: Secondary Status: Acute Qualifiers: Anemia type: iron deficiency Iron deficiency anemia type: unspecified iron deficiency Qualified Code(s): D50.9 - Iron deficiency anemia, unspecified (10) 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 Qualifiers: Pressure ulcer stage: unstageable Qualified Code(s): L89.150 - Pressure ulcer of sacral region, unstageable (11) Congestive heart failure Priority: Secondary Status: Chronic Qualifiers: Heart failure type: systolic Heart failure chronicity: chronic Qualified Code(s): I50.22 - Chronic systolic (congestive) heart failure (12) Acute respiratory failure with hypoxia Priority: Secondary Status: Resolved (13) History of DVT (deep vein thrombosis) Priority: Secondary Status: Resolved (14) Protein malnutrition Priority: Secondary Status: Chronic (15) Acute gastritis Priority: Secondary Status: Resolved Qualifiers: Gastritis type: unspecified gastritis Gastritis bleeding: without bleeding Qualified Code(s): K29.00 - Acute gastritis without bleeding (16) Constipation by delayed colonic transit Priority: Secondary Status: Chronic Hospital course: Mr. Vázquez is a 87 year old male with history of pacemaker, HTN, DM2, CKD stage 3, DVT on anticoag, AD, and CHF with EF of 45% who presented to [facility] with decreased responsiveness, admitted for septic shock 2/2 HCAP vs UTI vs pressure ulcer with acute resp failure with hypoxia 2/2 multifacorial nature with CHF exac and HCAP, patient was intubated and placed in ICU from 10/03 until 10/06 ( extubated); he required pressor support, vanc zosyn, IVF restriction and spot diuresis. Wound care followed patient, ID consulted, assessed patient's septic shock secondary to bacteremia and UTI, blood cultures drawn were positive 2 out of 2 sets for e. coli ESBL. No evidence of osteo on CT abd pelvis, patient transitioned to step down unit on 10/14. GI was consulted on 10/16 in setting of downtrending hgb from 9.7 on admission to 8.3, no melena; started on PPI BID, endoscopy on 10/17 showed normal esophagus, gastritis, and normal duodenum, recommended continuation of Prilosec. Per Nephrology consult, serum creatinine at 0.95, under baseline, he is to continue his daily Lasix at 20mg po daily. He is stable for ECF placement 10/20, with [facility] accepting, insurance is still pending pre-cert. Plan is for discharge upon finalization of insurance. - Time Spent with Patient Total time spent providing and/or coordinating discharge services: Greater than 30 minutes - Discharge Medications Prescriptions: Omeprazole [PriLOSEC] 40 mg PO DAILY #30 capsule. Home Medications: Tamsulosin [Flomax] 0.4 mg PO DAILY capsule 08/06/15 [Rx] Atorvastatin [Lipitor] 40 mg PO DAILY 09/07/15 [History] Cholecalciferol (D-3) [Vitamin D] 2,000 unit PO DAILY 05/09/17 [History] Furosemide [Lasix] 40 mg PO DAILY 07/27/17 [History] Apixaban [Eliquis] 2.5 mg PO BID #60 tablet 07/30/17 [Rx] Aspirin Enteric Coated [Aspirin EC] 81 mg PO DAILY #30 tablet. 07/30/17 [Rx] Ondansetron [Zofran ODT] 8 mg PO TID PRN 09/01/17 [History] PARoxetine HCl [Paroxetine HCl] 10 mg PO QAM 09/01/17 [History] Gabapentin [Neurontin] 300 mg PO BID 7 Days #14 capsule 09/06/17 [Rx] Acetaminophen [Tylenol Arthritis] 650 mg PO TID 09/13/17 [History] Docusate [Colace] 100 mg PO BID 09/13/17 [History] Insulin LISPRO [HumaLOG] 0 units SQ TIDAC #1 each 09/24/17 [Rx] Losartan [Cozaar] 25 mg PO DAILY 09/26/17 [History] Benzonatate [Tessalon] 100 mg PO TID 10/03/17 [History] Ertapenem [INVanz] 1,000 mg IVPB DAILY 10/03/17 [History] Guaifenesin [Mucinex] 600 mg PO BID 10/03/17 [History] Ipratropium/Albuterol Neb [Duoneb] 3 ml IH Q6HR 10/03/17 [History] Omeprazole [PriLOSEC] 40 mg PO DAILY #30 capsule. 10/20/17 [Rx] Allergies/Adverse Reactions: 3 Allergy/AdvReac Type Severity Reaction Status Date / Time No Known Allergies Allergy Verified 10/03/17 21:14 Date of admission: 10/03/17 22:11 Primary care physician: Radha Jones CNP Consults: 10/03/17 23:09 Consult to Pulmonology [CONS] Routine Consulting Provider: [facility] [place] Reason for Consult: respiratory failure. septic shock Call Completed: No 10/04/17 04:41 Consult to Wound Care [CONS] Routine Reason for Consult: coccyx/decubitus ulcer Call Completed: No 10/04/17 10:00 Consult to Palliative Care [CONS] Routine Comment: Consulting Provider: Palliative Care Reena Reason for Consult: Multiple co-morbididites. Full code. Time Notified: 10:01 Call Completed: Yes 10/04/17 10:30 Consult to Infectious Diseases [CONS] Routine Consulting Provider: Infectious Disease Reena Reason for Consult: History of ESBL UTI. Time Notified: 10:31 Call Completed: Yes 10/05/17 10:43 Consult to Urology [CONS] Routine Consulting Provider: Urology Reena Reason for Consult: Emphysematous cystitis Time Notified: 10:44 Call Completed: Yes 10/12/17 14:47 Consult to Heel Seat Filler [CONS] Routine Reason for SW Consult: Pt does not want to go back to ECF and family would like to take pt home. Family is requesting Anson to be social science research assistant. They have a card from him previously. 10/13/17 08:35 Consult to Nephrology [CONS] Routine Consulting Provider: Kidney Reena/EARNEST/WILLIAM/RESHMA Reason for Consult: ARF Call Completed: Yes 10/15/17 17:08 Consult to Occupational Therapy [CONS] Routine Comment: Evaluate, develop and implement POC Reason for Consult: Physical deconditioning Does patient have active BEDREST order?: No Is patient medically & hemodynamically stable?: Yes Patient assessed for mobility or mobilized this visit?: Yes Consult to Physical Therapy [CONS] Routine Comment: Evaluate, develop and implement POC Reason for Consult: Physical deconditioning Does patient have active BEDREST order?: No Is patient medically & hemodynamically stable?: Yes Patient assessed for mobility or mobilized this visit?: No 10/16/17 09:20 Consult to Gastroenterology [CONS] Routine Consulting Provider: Gastroenterarnie Valles Reason for Consult: Possible GI bleeding Call Completed: Yes Discharging clinician: Rajinder Marks Anticipated date of discharge: 10/21/17 - Constitutional Vitals: Temp Pulse Resp BP Pulse Ox 97.7 F 70 18 131/62 99 10/20/17 14:54 10/20/17 14:54 10/20/17 16:00 10/20/17 14:54 10/20/17 16:00 General appearance: Present: pleasant, no acute distress - Head Head exam: Present: atraumatic, normal inspection - Eye Eye exam: Present: EOMI, sclera anicteric - ENT ENT exam: Present: mucous membranes moist - Neck Neck exam general surgery: Absent: tenderness, supple - Respiratory Respiratory exam: Present: decreased breath sounds, rales Additional comments: mild rales, receiving percussive therapy - Cardiovascular Cardiovascular exam: Present: RRR, +S1, +S2 - Extremities Exam Extremities exam: Present: warm. Absent: calf tenderness - Neurological Exam Neurological exam: Absent: facial droop, speech deficit - Psychiatric Psychiatric exam: Present: normal affect, normal mood - Skin Skin exam: Absent: cyanosis, diaphoretic, erythema - Patient Status Disposition: Transfer Other Condition: Fair Functional capacity at discharge: uses cane/walker Overall status at discharge: patient is progressing back to baseline - Discharge Instructions Follow Up With: Radha Jones CERTIFIED FIRST ASSISTANT [Primary Care Provider] - Forms: ED Satisfaction Letter - Diet and Activity Activity: increase activity as tolerated Diet: regular diet - VTE Documentation of Mechanical Device: Intermittent pneumatic compression device
--- NOTE | 2017-10-20 17:35 | Physician Discharge Referral ---
ExtendedCare Referral Info Transfer To: [facility] Provider in Charge: [facility] Provider in Charge after Transfer: Other Institutional Level of Care: Skilled - Diagnosis (1) Septic shock Priority: Primary Status: Resolved (2) Bacteremia due to Escherichia coli Priority: Secondary Status: Resolved (3) HCAP (healthcare-associated pneumonia) Priority: Secondary Status: Resolved (4) Acute kidney injury superimposed on chronic kidney disease Priority: Secondary Status: Resolved (5) Hypertension Priority: Secondary Status: Chronic (6) Diabetes mellitus Priority: Secondary Status: Chronic (7) Volume overload Priority: Secondary Status: Chronic (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 (9) Anemia Priority: Secondary Status: Acute (10) 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 (11) Congestive heart failure Priority: Secondary Status: Chronic (12) Acute respiratory failure with hypoxia Priority: Secondary Status: Resolved (13) History of DVT (deep vein thrombosis) Priority: Secondary Status: Resolved (14) Protein malnutrition Priority: Secondary Status: Chronic (15) Acute gastritis Priority: Secondary Status: Resolved (16) Constipation by delayed colonic transit Priority: Secondary Status: Chronic Prognosis: Fair Aware of Diagnosis: Patient, Family Aware of Prognosis: Patient, Family - Transfer Medications Home Medications: Tamsulosin [Flomax] 0.4 mg PO DAILY capsule 08/06/15 [Rx] Atorvastatin [Lipitor] 40 mg PO DAILY 09/07/15 [History] Cholecalciferol (D-3) [Vitamin D] 2,000 unit PO DAILY 05/09/17 [History] Furosemide [Lasix] 40 mg PO DAILY 07/27/17 [History] Apixaban [Eliquis] 2.5 mg PO BID #60 tablet 07/30/17 [Rx] Aspirin Enteric Coated [Aspirin EC] 81 mg PO DAILY #30 tablet. 07/30/17 [Rx] Ondansetron [Zofran ODT] 8 mg PO TID PRN 09/01/17 [History] PARoxetine HCl [Paroxetine HCl] 10 mg PO QAM 09/01/17 [History] Gabapentin [Neurontin] 300 mg PO BID 7 Days #14 capsule 09/06/17 [Rx] Acetaminophen [Tylenol Arthritis] 650 mg PO TID 09/13/17 [History] Docusate [Colace] 100 mg PO BID 09/13/17 [History] Insulin LISPRO [HumaLOG] 0 units SQ TIDAC #1 each 09/24/17 [Rx] Losartan [Cozaar] 25 mg PO DAILY 09/26/17 [History] Benzonatate [Tessalon] 100 mg PO TID 10/03/17 [History] Ertapenem [INVanz] 1,000 mg IVPB DAILY 10/03/17 [History] Guaifenesin [Mucinex] 600 mg PO BID 10/03/17 [History] Ipratropium/Albuterol Neb [Duoneb] 3 ml IH Q6HR 10/03/17 [History] Allergies/Adverse Reactions: 3 Allergy/AdvReac Type Severity Reaction Status Date / Time No Known Allergies Allergy Verified 10/03/17 21:14 - Respiratory Orders Smoking Cessation: Smoking cessation has been advised. For more information, call the [place] Tobacco Quit Line at 7-813-MTJE-NOW. - Advance Directives Code Status: Full Code - Rehabiliation Orders Rehab Potential: Fair - Diet Orders Regular CERTIFICATION: I certify that the transfer of the above named patient to an Extended Care Facility is necessary for the continuing treatment of the diagnosis listed. The above information is true and accurate reflection of patient's current condition. Confidential - Redisclosure prohibited without a patient's written consent.
[2017-10-20] MEDS: Sodium Chloride for inhalation 3 ML VIAL IH SCH ×2 (19:58→23:00)
[2017-10-21] MEDS: Insulin LISPRO 300 UNITS/3 ML VIAL SQ SCH ×5 (01:57→21:30)
[2017-10-21] MEDS: Sodium Chloride for inhalation 3 ML VIAL IH SCH ×4 (04:06→22:18)
[2017-10-21 04:50] LABS: Basophils % 0.5 %; Eosinophils # 0.2 K/mcL (0.0-0.6); Eosinophils % 2.8 %; Hemoglobin 9.2 g/dL (12.9-16.9); Immature Granulocytes % 0.6 % (0-4); Lymphocytes # 0.6 K/mcL (0.6-4.6); Lymphocytes % 8.9 %; Mean Corpuscular HGB Conc 31.7 g/dL (31.6-35.5); Mean Corpuscular Hemoglobin 31.2 pg (28.0-33.3); Mean Corpuscular Volume 98.3 fL (83.0-100.0); Mean Platelet Volume 8.9 fL (9.4-12.4); Monocytes # 0.6 K/mcL (0.0-1.3); Monocytes % 8.9 %; Neutrophils # 5.1 K/mcL (1.6-8.9); Platelet Count 152 K/mcL (140-400); Red Blood Count 2.95 M/mcL (4.19-5.50); Red Cell Distribution Width 17.1 % (11.5-14.5); Segmented Neutrophils % 78.3 %
[2017-10-21 05:03] LABS: BUN/Creatinine Ratio 59 (6-26); Blood Urea Nitrogen 64 mg/dL (8-23); Calcium 8.5 mg/dL (8.6-10.3); Carbon Dioxide 30 mEq/L (23-29); Chloride 101 mEq/L (98-107); Glucose 220 mg/dL (70-105); Osmolality,Calculated 313 (280-300); Potassium 3.8 mEq/L (3.5-5.1); Sodium 139 mEq/L (136-145); eGFR For African Americans > 60 (> 60); eGFR For Non-African Americans > 60 (> 60)
[2017-10-21] MEDS: Furosemide 40 MG/4 ML VIAL IVP SCH (09:25)
[2017-10-21] MEDS: Megestrol Acetate 400 MG/10 ML UDC PO SCH (09:25)
[2017-10-21] MEDS: Apixaban 5 MG TABLET PO SCH ×2 (09:26→20:59)
[2017-10-21] MEDS: Acetaminophen 325 MG TABLET PO SCH ×3 (09:26→20:56)
[2017-10-21] MEDS: Gabapentin 300 MG CAPSULE PO SCH ×2 (09:27→20:58)
[2017-10-21] MEDS: Benzonatate 100 MG CAPSULE PO SCH ×3 (09:27→20:58)
[2017-10-21] MEDS: Thiamine (B-1) 100 MG TABLET PO SCH ×2 (09:27→20:58)
--- NOTE | 2017-10-21 13:23 | Internal Med Progress Note ---
Date of Encounter: 10/21/17 Time of Encounter: 13:21 - Assessment and plan (1) Acute respiratory failure with hypoxia Current Visit: Yes Status: Resolved Assessment and plan: improving Back on room air , but did need NC at some point today Continue IV diuresis cautiously, likely needs few more days of IV diuresis Lasix 40 mg IV daily - taper Lasix today as tolerated - Fluid restriction 2L. Disposition: Patient not safe to discharge home as he is too weak, he is better suited and safe to go to ECF. PT/OT also recommends. - Family agrees to placing patient to SNF, pending acceptance. (2) Septic shock Current Visit: Yes Status: Resolved Assessment and plan: Resolved (3) HCAP (healthcare-associated pneumonia) Current Visit: Yes Status: Resolved Assessment and plan: Patient was treated with ertapenem (4) Acute kidney injury superimposed on chronic kidney disease Current Visit: No Status: Resolved Assessment and plan: High BUN possible GI bleeding with his hemoglobin trending down and could be prerenal failure with third spacing, Nephrology consulted for assistance with management. Renal function improved within normal limits (5) Hypertension Current Visit: No Status: Chronic Assessment and plan: Currently BP normal. Runs low, takes midodrine. Continue midodrine Qualifiers: Hypertension type: unspecified Qualified Code(s): I10 - Essential (primary ) hypertension (6) Diabetes mellitus Current Visit: No Status: Chronic Assessment and plan: will place on SSI. Accucheks. Qualifiers: Diabetes mellitus type: type 2 Diabetes mellitus custom seamstress insulin use: without intermediate use Diabetes mellitus complication status: with kidney complications Diabetes mellitus complication detail: with chronic kidney disease Chronic kidney disease stage: stage 3 (moderate) Qualified Code(s): E11.22 - Type 2 diabetes mellitus with diabetic chronic kidney disease; N18.3 - Chronic kidney disease, stage 3 (moderate) (7) Volume overload Current Visit: Yes Status: Chronic Assessment and plan: Continue gentle diuresis. 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 EGD done showed gastritis, no active bleed. Chronic anemia managed as outpatient. Qualifiers: Anemia type: iron deficiency Iron deficiency anemia type: unspecified iron deficiency Qualified Code(s): D50.9 - Iron deficiency anemia, unspecified (10) Pressure ulcer of coccygeal region Current Visit: No Status: Chronic Qualifiers: Pressure ulcer stage: unstageable Qualified Code(s): L89.150 - Pressure ulcer of sacral region, unstageable (11) Congestive heart failure Current Visit: Yes Status: Chronic Assessment and plan: Continue IV diuresis Qualifiers: Heart failure type: systolic Heart failure chronicity: chronic Qualified Code(s): I50.22 - Chronic systolic (congestive) heart failure (12) History of DVT (deep vein thrombosis) Current Visit: Yes Status: Resolved Assessment and plan: 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 H/H has been slowly dropping since July. hgb was 16.8 on 07/30/2017. No signs of bleeding. Continue Eliquis 2.5 mg BID (13) Bacteremia due to Escherichia coli Current Visit: Yes Status: Resolved Assessment and plan: Patient wastreated with Ertapenem and ID following, has now completed antibiotic therapy. (14) Protein malnutrition Current Visit: Yes Status: Chronic Assessment and plan: High protein formula. Dietary following. Continue Megace Trying carafate to see if this improves his appetite with treating gastritis (15) Acute gastritis Current Visit: Yes Status: Resolved Assessment and plan: Start carafate Continue daily ppi Qualifiers: Gastritis type: unspecified gastritis Gastritis bleeding: without bleeding Qualified Code(s): K29.00 - Acute gastritis without bleeding (16) Constipation by delayed colonic transit Current Visit: Yes Status: Chronic - Time Spent With Patient Total time spent is greater than 50% in coordination of care (as documented) at patient's floor/unit and/or counseling patient: - Subjective Interval history: Family present at bedside. Denies fevers/chills, n/v, chest pain. 10/18: had very poor appetite He usually enjoys food but not in the past week. He thinks that maybe Megace is helping but hes not absolutely sure. 10/19: states appetite is improving today, carafate was added day prior to treat gastritis to increase appetite. 10/20: no acute issues 10/21: no acute issues, no acute events. Does have excessive wet cough and having trouble getting rid of mucus. - Constitutional Vitals: Temp Pulse Resp BP Pulse Ox 98 F 70 16 103/49 98 10/21/17 11:46 10/21/17 11:46 10/21/17 11:46 10/21/17 11:46 10/21/17 11:46 General appearance: Present: pleasant, no acute distress Exam: - Head Head exam: Present: atraumatic, normocephalic - Neck Neck exam general surgery: Present: supple, trachea midline. Absent: lymphadenopathy - Respiratory Respiratory exam: Present: decreased breath sounds, prolonged expiratory phase, rales (Right lung base). Absent: accessory muscle use, rhonchi, wheezes - Cardiovascular Cardiovascular exam: Present: RRR, +S1, +S2, systolic murmur (3/6). Absent: diastolic murmur, gallop, rubs - GI/Abdominal GI/Abdominal exam: Present: normal bowel sounds, soft, tenderness (Epigastric tenderness), no peritoneal signs. Absent: distended - Extremities Exam Extremities exam: Present: pedal edema (Bilateral pitting, 2+), warm, radial pulses palpable and symmetrical. Absent: calf tenderness, cyanotic Internal Medicine: Result - Labs CBC & Chem 7: 10/21/17 04:00 10/21/17 04:00 Labs: Short CBC 10/21/17 Range/Units 04:00 WBC 6.5 (4.3-11.1) K/mcL Hgb 9.2 L (12.9-16.9) g/dL Hct 29.0 L (37.5-50.1) % Plt Count 152 (140-400) K/mcL Neutrophils # 5.1 (1.6-8.9) K/mcL BMP 10/21/17 04:00 Sodium 139 Potassium 3.8 Chloride 101 Carbon Dioxide 30 H BUN 64 H Creatinine 1.08 Glucose 220 H Calcium 8.5 L - ABG Interpretation ABG results: ABG ABG pH 7.40 pH Units (7.32-7.45) 10/06/17 04:56 ABG pCO2 43 mmHg (35-45) 10/06/17 04:56 ABG pO2 68 mmHg (85-104) L 10/06/17 04:56 ABG O2 Saturation 93 % (95-98) L 10/06/17 04:56 PT/INR, D-dimer PT 17.9 Seconds (9.4-12.1) H 10/03/17 19:14 - VTE Documentation of Mechanical Device: Intermittent pneumatic compression device Consult Discharge Plan - Plan Referrals: Radha Jones CNP [Primary Care Provider] - Prescriptions: Omeprazole [PriLOSEC] 40 mg PO DAILY #30 capsule.
[2017-10-22] MEDS: Sodium Chloride for inhalation 3 ML VIAL IH SCH ×4 (03:38→22:10)
[2017-10-22] MEDS: Furosemide 40 MG TABLET PO SCH (08:46)
[2017-10-22] MEDS: *HR* Digoxin 0.125 MG TABLET PO SCH (08:46)
[2017-10-22] MEDS: Gabapentin 300 MG CAPSULE PO SCH ×2 (08:46→19:55)
[2017-10-22] MEDS: Benzonatate 100 MG CAPSULE PO SCH ×3 (08:46→19:56)
[2017-10-22] MEDS: Apixaban 5 MG TABLET PO SCH ×2 (08:46→19:56)
[2017-10-22] MEDS: Thiamine (B-1) 100 MG TABLET PO SCH ×2 (08:46→19:55)
[2017-10-22] MEDS: Megestrol Acetate 400 MG/10 ML UDC PO SCH (08:47)
[2017-10-22] MEDS: Insulin LISPRO 300 UNITS/3 ML VIAL SQ SCH ×4 (08:47→21:30)
[2017-10-22] MEDS: Acetaminophen 325 MG TABLET PO SCH ×3 (12:27→19:55)
[2017-10-22] MEDS ORDERED: Acetylcysteine 10% 2 ML INHSOL IH ONE (15:01)
--- NOTE | 2017-10-22 15:04 | Internal Med Progress Note ---
Date of Encounter: 10/22/17 Time of Encounter: 15:02 - Assessment and plan (1) Acute respiratory failure with hypoxia Current Visit: Yes Status: Resolved Assessment and plan: Resolved - Lasix 40 mg PO; back to home dose. - Fluid restriction 2L. Disposition: Patient not safe to discharge home as he is too weak, he is better suited and safe to go to ECF. PT/OT also recommends. - Family agrees to placing patient to SNF, pending acceptance. - Family informed me today they would like patient to go to [facility]. (2) Septic shock Current Visit: Yes Status: Resolved Assessment and plan: Secondary to ESBL UTI and possibly pneumonia as well. Resolved (3) HCAP (healthcare-associated pneumonia) Current Visit: Yes Status: Resolved Assessment and plan: Patient was treated with ertapenem (4) Acute kidney injury superimposed on chronic kidney disease Current Visit: No Status: Resolved Assessment and plan: High BUN possible GI bleeding with his hemoglobin trending down and could be prerenal failure with third spacing, Nephrology consulted for assistance with management. Renal function improved within normal limits (5) Hypertension Current Visit: No Status: Chronic Assessment and plan: Currently BP normal. Runs low, takes midodrine. Continue midodrine Qualifiers: Hypertension type: unspecified Qualified Code(s): I10 - Essential (primary ) hypertension (6) Diabetes mellitus Current Visit: No Status: Chronic Assessment and plan: will place on SSI. Accucheks. Qualifiers: Diabetes mellitus type: type 2 Diabetes mellitus jail insulin use: without jail use Diabetes mellitus complication status: with kidney complications Diabetes mellitus complication detail: with chronic kidney disease Chronic kidney disease stage: stage 3 (moderate) Qualified Code(s): E11.22 - Type 2 diabetes mellitus with diabetic chronic kidney disease; N18.3 - Chronic kidney disease, stage 3 (moderate) (7) Volume overload Current Visit: Yes Status: Chronic Assessment and plan: Continue gentle diuresis. 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 EGD done showed gastritis, no active bleed. Chronic anemia managed as outpatient. Qualifiers: Anemia type: iron deficiency Iron deficiency anemia type: unspecified iron deficiency Qualified Code(s): D50.9 - Iron deficiency anemia, unspecified (10) Pressure ulcer of coccygeal region Current Visit: No Status: Chronic Assessment and plan: Continue wound care treatment Qualifiers: Pressure ulcer stage: unstageable Qualified Code(s): L89.150 - Pressure ulcer of sacral region, unstageable (11) Congestive heart failure Current Visit: Yes Status: Chronic Assessment and plan: Continue IV diuresis Qualifiers: Heart failure type: systolic Heart failure chronicity: chronic Qualified Code(s): I50.22 - Chronic systolic (congestive) heart failure (12) History of DVT (deep vein thrombosis) Current Visit: Yes Status: Resolved Assessment and plan: 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 H/H has been slowly dropping since July. hgb was 16.8 on 07/30/2017. No signs of bleeding. Continue Eliquis 2.5 mg BID (13) Bacteremia due to Escherichia coli Current Visit: Yes Status: Resolved Assessment and plan: Patient wastreated with Ertapenem and ID following, has now completed antibiotic therapy. (14) Protein malnutrition Current Visit: Yes Status: Chronic Assessment and plan: High protein formula. Dietary following. 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 Denies fevers/chills, n/v, chest pain. Family notes they want patient to go to [facility]. - Constitutional Vitals: Temp Pulse Resp BP Pulse Ox 97.7 F 95 16 109/62 98 10/22/17 11:24 10/22/17 11:24 10/22/17 11:24 10/22/17 11:24 10/22/17 11:24 General appearance: Present: pleasant, no acute distress Exam: - Head Head exam: Present: atraumatic, normocephalic - Neck Neck exam general surgery: Present: supple, trachea midline. Absent: lymphadenopathy - Respiratory Respiratory exam: Present: decreased breath sounds, prolonged expiratory phase, rales (Right lung base). Absent: accessory muscle use, rhonchi, wheezes - Cardiovascular Cardiovascular exam: Present: RRR, +S1, +S2, systolic murmur (3/6). Absent: diastolic murmur, gallop, rubs - GI/Abdominal GI/Abdominal exam: Present: normal bowel sounds, soft, tenderness (Epigastric tenderness), no peritoneal signs. Absent: distended - Extremities Exam Extremities exam: Present: pedal edema (Bilateral pitting, 2+), warm, radial pulses palpable and symmetrical. Absent: calf tenderness, cyanotic Internal Medicine: Result - Labs CBC & Chem 7: 10/21/17 04:00 10/21/17 04:00 - ABG Interpretation ABG results: ABG ABG pH 7.40 pH Units (7.32-7.45) 10/06/17 04:56 ABG pCO2 43 mmHg (35-45) 10/06/17 04:56 ABG pO2 68 mmHg (85-104) L 10/06/17 04:56 ABG O2 Saturation 93 % (95-98) L 10/06/17 04:56 PT/INR, D-dimer PT 17.9 Seconds (9.4-12.1) H 10/03/17 19:14 - VTE Documentation of Mechanical Device: Intermittent pneumatic compression device Consult Discharge Plan - Plan Referrals: Radha Jones, CLINICAL EDUCATION ACADEMIC COORDINATOR [Primary Care Provider] - Prescriptions: Omeprazole [PriLOSEC] 40 mg PO DAILY #30 capsule.
[2017-10-22] MEDS ORDERED: Ipratropium/Albuterol Neb 3 ML IH ONE (15:26)
[2017-10-23] MEDS: Sodium Chloride for inhalation 3 ML VIAL IH SCH ×3 (03:48→16:04)
--- NOTE | 2017-10-23 07:43 | Internal Med Progress Note ---
<Marck Arrieta - Last Filed: 10/23/17 15:24> Date of Encounter: 10/23/17 Time of Encounter: 07:39 - Assessment and plan (1) Acute respiratory failure with hypoxia Status: Resolved Assessment and plan: Resolved - Lasix 40 mg PO; back to home dose. - Fluid restriction 2L. Disposition: Patient not safe to discharge home as he is too weak, he is better suited and safe to go to ECF. PT/OT also recommends. - Family agrees to placing patient to SNF, pending acceptance. - Family informed me today they would like patient to go to [facility] (2) Septic shock Status: Resolved Assessment and plan: Secondary to ESBL UTI and possibly pneumonia as well. Resolved (3) HCAP (healthcare-associated pneumonia) Status: Resolved Assessment and plan: Patient was treated with ertapenem (4) Bacteremia due to Escherichia coli Status: Resolved Assessment and plan: Patient wastreated with Ertapenem and ID following, has now completed antibiotic therapy. (5) Acute kidney injury superimposed on chronic kidney disease Status: Resolved Assessment and plan: High BUN possible GI bleeding with his hemoglobin trending down and could be prerenal failure with third spacing, Nephrology was consulted for assistance with management. Renal function improved within normal limits (6) Hypertension Status: Chronic Assessment and plan: Currently BP normal. Runs low, takes midodrine. Continue midodrine Qualifiers: Hypertension type: unspecified Qualified Code(s): I10 - Essential (primary ) hypertension (7) Diabetes mellitus Status: Chronic Assessment and plan: will place on SSI. Accucheks. Qualifiers: Diabetes mellitus type: type 2 Diabetes mellitus front line leader insulin use: without [facility] use Diabetes mellitus complication status: with kidney complications Diabetes mellitus complication detail: with chronic kidney disease Chronic kidney disease stage: stage 3 (moderate) Qualified Code(s): E11.22 - Type 2 diabetes mellitus with diabetic chronic kidney disease; N18.3 - Chronic kidney disease, stage 3 (moderate) (8) Congestive heart failure Status: Chronic Assessment and plan: Continue diuresis and home meds Qualifiers: Heart failure type: systolic Heart failure chronicity: chronic Qualified Code(s): I50.22 - Chronic systolic (congestive) heart failure (9) Volume overload Status: Chronic Assessment and plan: Continue gentle diuresis. Strict I/O Daily weights Lasix Qualifiers: Hypervolemia type: other Qualified Code(s): E87.79 - Other fluid overload (10) Emphysematous cystitis Status: Chronic (11) Anemia Status: Acute Assessment and plan: Combination of iron deficiency anemia and anemia of chronic kidney disease, add iron, consider aranesp, Continue to monitor H&H Currently hemodynamically stable. EGD done showed gastritis, no active bleed. Chronic anemia managed as outpatient. 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 H/H has been slowly dropping since July. hgb was 16.8 on 07/30/2017. No signs of bleeding. Continue Eliquis 2.5 mg BID (14) Protein malnutrition Status: Chronic Assessment and plan: High protein formula. Dietary following. 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 Patient denies any new c/ o and remains on 2L O2 via NE. He is awaiting placement to [facility]. - Constitutional Vitals: Temp Pulse Resp BP Pulse Ox 97.8 F 94 16 119/59 97 10/23/17 06:58 10/23/17 06:58 10/23/17 06:58 10/23/17 06:58 10/23/17 06:58 General appearance: Present: cooperative, pleasant, no acute distress, answers questions appropriately Exam: weak - Head Head exam: Present: atraumatic, normocephalic - Eye Eye exam: Present: PERRL, conjuntiva pink, sclera anicteric Pupils: Present: PERRL - ENT ENT exam: Present: mucous membranes dry, normal oropharynx - Neck Neck exam general surgery: Present: supple, trachea midline. Absent: lymphadenopathy - Respiratory Respiratory exam: Present: decreased breath sounds. Absent: accessory muscle use, CTAB, rales, rhonchi, wheezes - Cardiovascular Cardiovascular exam: Present: RRR, +S1, +S2. Absent: diastolic murmur, gallop, rubs, systolic murmur - GI/Abdominal GI/Abdominal exam: Present: normal bowel sounds, soft, no peritoneal signs. Absent: distended, tenderness - Extremities Exam Extremities exam: Present: warm, radial pulses palpable and symmetrical. Absent : calf tenderness, cyanotic, pedal edema - Neurological Exam Neurological exam: Present: CN II-XII intact, no focal deficits. Absent: pronater drift, facial droop, speech deficit - Psychiatric Psychiatric exam: Present: normal affect, normal mood - Skin Skin exam: Present: dry, warm. Absent: intact Additional comments: Coccyx ulcer Internal Medicine: Result - Labs CBC & Chem 7: 10/21/17 04:00 10/21/17 04:00 - ABG Interpretation ABG results: ABG ABG pH 7.40 pH Units (7.32-7.45) 10/06/17 04:56 ABG pCO2 43 mmHg (35-45) 10/06/17 04:56 ABG pO2 68 mmHg (85-104) L 10/06/17 04:56 ABG O2 Saturation 93 % (95-98) L 10/06/17 04:56 PT/INR, D-dimer PT 17.9 Seconds (9.4-12.1) H 10/03/17 19:14 - Pulse Oximetry Interpretation Digit-Finger Pulse Oximetry Readin (On 2L O2 via [place]) - VTE Documentation of Mechanical Device: Intermittent pneumatic compression device Consult Discharge Plan - Plan Instructions: Omeprazole (By mouth), Heart Failure (DC), Pacemaker (DC), Acute Respiratory Distress Syndrome (DC), Urinary Tract Infection in Men (DC), Cellulitis (DC), How to Prevent Pressure Ulcers (DC), Diabetes Mellitus Type 2 in Adults (DC), Lactose-Controlled Diet (GEN), Chronic Hypertension (DC), Anemia (GEN), Pneumonia (DC) Referrals: Radha Jones, [employer] [Primary Care Provider] - Prescriptions: Lactose-Reduced Food [Ensure High Protein] 1 bottle PO TID #90 can Omeprazole [PriLOSEC] 40 mg PO DAILY #30 capsule. <Daisy Vazquez - Last Filed: 10/23/17 18:21> Date of Encounter: 10/23/17 - Assessment and plan (1) Acute kidney injury superimposed on chronic kidney disease Status: Resolved (2) Hypertension Status: Chronic Qualifiers: Hypertension type: unspecified Qualified Code(s): I10 - Essential (primary ) hypertension (3) Diabetes mellitus Status: Chronic Qualifiers: Diabetes mellitus type: type 2 Diabetes mellitus front line leader insulin use: without front line leader use Diabetes mellitus complication status: with kidney complications Diabetes mellitus complication detail: with chronic kidney disease Chronic kidney disease stage: stage 3 (moderate) Qualified Code(s): E11.22 - Type 2 diabetes mellitus with diabetic chronic kidney disease; N18.3 - Chronic kidney disease, stage 3 (moderate) (4) Volume overload Status: Chronic Qualifiers: Hypervolemia type: other Qualified Code(s): E87.79 - Other fluid overload (5) Emphysematous cystitis Status: Chronic (6) Anemia Status: Acute Qualifiers: Anemia type: iron deficiency Iron deficiency anemia type: unspecified iron deficiency Qualified Code(s): D50.9 - Iron deficiency anemia, unspecified (7) Pressure ulcer of coccygeal region Status: Chronic Qualifiers: Pressure ulcer stage: unstageable Qualified Code(s): L89.150 - Pressure ulcer of sacral region, unstageable (8) Congestive heart failure Status: Chronic Qualifiers: Heart failure type: systolic Heart failure chronicity: chronic Qualified Code(s): I50.22 - Chronic systolic (congestive) heart failure (9) Septic shock Status: Resolved (10) Acute respiratory failure with hypoxia Status: Resolved (11) History of DVT (deep vein thrombosis) Status: Resolved (12) HCAP (healthcare-associated pneumonia) Status: Resolved (13) Bacteremia due to Escherichia coli Status: Resolved (14) Protein malnutrition Status: Chronic (15) Acute gastritis Status: Resolved Qualifiers: Gastritis type: unspecified gastritis Gastritis bleeding: without bleeding Qualified Code(s): K29.00 - Acute gastritis without bleeding (16) Constipation by delayed colonic transit Status: Chronic - Time Spent With Patient Total time spent is greater than 50% in coordination of care (as documented) at patient's floor/unit and/or counseling patient: - Constitutional Vitals: Temp Pulse Resp BP Pulse Ox 98.5 F 88 16 109/70 98 10/23/17 11:36 10/23/17 11:36 10/23/17 11:36 10/23/17 11:36 10/23/17 11:36 Internal Medicine: Result - Labs CBC & Chem 7: 10/21/17 04:00 10/21/17 04:00 - ABG Interpretation ABG results: ABG ABG pH 7.40 pH Units (7.32-7.45) 10/06/17 04:56 ABG pCO2 43 mmHg (35-45) 10/06/17 04:56 ABG pO2 68 mmHg (85-104) L 10/06/17 04:56 ABG O2 Saturation 93 % (95-98) L 10/06/17 04:56 PT/INR, D-dimer PT 17.9 Seconds (9.4-12.1) H 10/03/17 19:14 - Attending Attestation I examined this patient and my medical decision-making was reviewed with the Resident Physician. I agree with the documented findings, disposition and treatment plan as described except to the extent set forth below.
[2017-10-23] MEDS: Gabapentin 300 MG CAPSULE PO SCH (08:20)
[2017-10-23] MEDS: Megestrol Acetate 400 MG/10 ML UDC PO SCH (08:20)
[2017-10-23] MEDS: Furosemide 40 MG TABLET PO SCH (08:20)
[2017-10-23] MEDS: Benzonatate 100 MG CAPSULE PO SCH ×2 (08:22→15:40)
[2017-10-23] MEDS: *HR* OxyCODONE/APAP 5/325 TABLET PO PRN (08:22)
[2017-10-23] MEDS: Apixaban 5 MG TABLET PO SCH (08:23)
[2017-10-23] MEDS: Acetaminophen 325 MG TABLET PO SCH ×2 (08:23→15:40)
[2017-10-23] MEDS: Thiamine (B-1) 100 MG TABLET PO SCH (08:23)
[2017-10-23] MEDS: Insulin LISPRO 300 UNITS/3 ML VIAL SQ SCH ×2 (08:27→12:23)
[2017-10-23 11:39] VITALS: BP 109/70
== END 2017-10-23 16:24 | disposition other institution (70) | DRG 698 ==
LOC: EMEROO 18:00 → ICNU 22:11 → SUATTDRO 22:11 → ICNU 23:30 → 2NENU 10-12 13:03
PROVIDERS: ADMIT Internal Medicine; ATTEND Student in an Organized Health Care Education/Training Program
PROC: ENDOEBX (2017-10-17 17:00)

== ENCOUNTER 2017-11-02 15:27 | Inpatient (IN) ==
[2017-11-02] MEDS ORDERED: Piperacillin/Tazobactam 3.375 GM in 0.9 % Sodium Chloride Mini Bag 100 ML IVPB ONE (15:45)
[2017-11-02] MEDS ORDERED: 0.9 % Sodium Chloride 500 ML IVC ONE (15:46)
[2017-11-02] MEDS ORDERED: 0.9 % Sodium Chloride 500 ML ONE (15:47)
[2017-11-02] MEDS ORDERED: 0.9 % Sodium Chloride 1,000 ML IVC ONE (16:08)
--- NOTE | 2017-11-02 16:18 | Emergency Department Note ---
Disposition Clinical Impression: Septic shock Pneumonia Qualifiers: Pneumonia type: due to unspecified organism Laterality: unspecified laterality Lung location: unspecified part of lung Qualified Code(s): J18.9 - Pneumonia, unspecified organism Cellulitis Qualifiers: Site of cellulitis: extremity Site of cellulitis of extremity: upper extremity Laterality: left Qualified Code(s): L03.114 - Cellulitis of left upper limb UTI (urinary tract infection) Qualifiers: Urinary tract infection type: site unspecified Hematuria presence: without hematuria Qualified Code(s): N39.0 - Urinary tract infection, site not specified Disposition: Admitted As Inpatient Condition: Fair Referrals: Radha Jones MILLER APPRENTICE [Primary Care Provider] - Forms: ED Satisfaction Letter General Adult HPI - General Chief complaint: ED Shortness of Breath/Dyspnea Stated complaint: breathing problem Time Seen by Provider: 11/02/17 15:37 Source: EMS Limitations: no limitations Nursing Notes Reviewed: Yes Vital Signs Reviewed: Yes - History of Present Illness HPI Narrative: Patient presents from halfway for evaluation of further treatment of pneumonia as well as cellulitis. EMS states that this has been diagnosed is currently undergoing treatment however did not see any treatment within the documentation that I been provided and the patient does not have any knowledge of treatment. Keflex as listed in his medication list. Patient states he has been battling pneumonia and has been admitted multiple times in the past for this. Patient states increased worker breathing. Patient is on oxygen at baseline. The patient has also developed redness to the left arm. Describes it over the last 3 days. Worsening in nature. Patient describes productive cough without specific color of sputum. The patient describes weakness and fatigue without fevers or chills. Denies abdominal pain. Has chronic Bethea secondary to previous urinary tract infections per patient. Patient is also had clots in both legs and is currently on request. Patient has reported heel and sacral decubitus ulcers upon arrival. CHF acute kidney failure chronic kidney disease stage III iron deficiency anemia sacral pressure ulcer, diabetes, hypertension, protein calorie malnutrition, personal history of venous thrombosis and embolism. Medications include: Aspirin, atorvastatin, Cozaar, eloquent, furosemide, gabapentin, Humalog, albuterol, Keflex, paroxetine, tamsulosin, Zofran, Eliquis. Pain Scale: 0 - Related Data Home Medications Medication Instructions Recorded Confirmed Atorvastatin [Lipitor] 40 mg PO DAILY 09/07/15 11/02/17 Cholecalciferol (D-3) [Vitamin D] 2,000 unit PO DAILY 05/09/17 11/02/17 Furosemide [Lasix] 40 mg PO DAILY 07/27/17 11/02/17 Ondansetron [Zofran ODT] 8 mg PO TID PRN 09/01/17 11/02/17 PARoxetine HCl [Paroxetine HCl] 10 mg PO QAM 09/01/17 11/02/17 Acetaminophen [Tylenol Arthritis] 650 mg PO TID 09/13/17 11/02/17 Docusate [Colace] 100 mg PO BID 09/13/17 11/02/17 Losartan [Cozaar] 25 mg PO DAILY 09/26/17 11/02/17 Benzonatate [Tessalon] 100 mg PO TID 10/03/17 11/02/17 Guaifenesin [Mucinex] 600 mg PO BID 10/03/17 11/02/17 Ipratropium/Albuterol Neb [Duoneb] 3 ml IH Q6HR 10/03/17 11/02/17 Previous Rx's Medication Instructions Recorded Tamsulosin [Flomax] 0.4 mg PO DAILY capsule 08/06/15 Apixaban [Eliquis] 2.5 mg PO BID #60 tablet 07/30/17 Aspirin Enteric Coated [Aspirin EC] 81 mg PO DAILY #30 tablet. 07/30/17 Gabapentin [Neurontin] 300 mg PO BID 7 Days #14 capsule 09/06/17 Insulin LISPRO [HumaLOG] 0 units SQ TIDAC #1 each 09/24/17 Allergies Allergy/AdvReac Type Severity Reaction Status Date / Time No Known Allergies Allergy Verified 10/03/17 21:14 Review of Systems: CONSTITUTIONAL: Weakness and fatigue with out fever chills HEENT: Eyes: No visual changes. Ears, Nose, Throat: No hearing loss, difficulty talking or unable to swallow. SKIN: No rash or itching. CARDIOVASCULAR: No chest pain, chest pressure or chest discomfort. No palpitations or edema. RESPIRATORY: Shortness of breath with cough and sputum production GASTROINTESTINAL: No anorexia, nausea, vomiting or diarrhea. No abdominal pain or blood. GENITOURINARY: Decrease in urination NEUROLOGICAL: No headache, dizziness, syncope, paralysis, ataxia, numbness or tingling in the extremities. No change in bowel or bladder control. MUSCULOSKELETAL: No muscle pain, back pain, joint pain or stiffness. Past Medical History - Past Medical History Medical history: Reports: arthritis, CHF, DVT, diabetes, hypertension, kidney stones, renal disease, other Surgical history: Reports: herniorrhaphy, pacemaker/AICD Psychiatric history: Reports: anxiety - Social History Smoking Status: Never smoker Smokeless Tobacco Status: No Alcohol use: Reports: none, rarely Drug use: Reports: none Physical Exam General: Talkative in conversational but pale in appearance. Head: Normocephalic Atraumatic Eyes: PERRL, EOMI ENT: Airway patent, no stridor Neck: supple, no meningismus Chest: Diffuse rales Cardiac: Tachycardic but regular Abdomen: soft, nontender, nondistended; no guarding, rebound, or tenderness to percussion Musculoskeletal: Calves with +2 pitting edema up to the knee. Skin: Erythema to the left forearm including the hand up into the distal aspect of the humerus Neuro: Alert and Oriented to person, place; weakness of both legs bilaterally. Generalized weakness. - General Limitations: no limitations General appearance: alert, in no apparent distress Course - Reevaluation(s) Reevaluation #1: Patient received 1 L of fluids and continues to have systolic blood pressure of 80. Heart rate improved into the high 80s. The patient is already fluid overloaded from likely CHF. This is likely contributing to his recurrent pneumonias as well. Patient's elevated troponin is most likely secondary to underlying sepsis however he does have slight elevations within the anterior leads not consistent with [place] criteria at this point and he does not have chest pain. - Consultations Consultation #1: Discussed with hospitalist. Patient accepted for admission. Patient is on leave fed drip. Patient will go to the ICU for further care. Antibiotics ordered at initial presentation. 1500 mL of fluid has been given without significant response to blood pressure. Patient significantly edematous with wet cough. Chest x-ray is still pending. Concern for CHF versus just protein calorie malnutrition. Vital Signs Temperature 97.5 F L 11/02/17 15:29 Pulse Rate 104 11/02/17 15:29 Respiratory Rate 20 11/02/17 15:29 Blood Pressure 77/51 11/02/17 15:29 O2 Sat by Pulse Oximetry 95 11/02/17 15:29 Temperature 97.5 F L 11/02/17 15:41 Pulse Rate 79 11/02/17 17:30 Respiratory Rate 22 11/02/17 17:30 Blood Pressure 85/55 11/02/17 17:30 O2 Sat by Pulse Oximetry 98 11/02/17 17:30 Oxygen Delivery Oxygen Delivery Nasal Cannula Procedures - Central Line Placement Right Femoral Central Line Inserted*: Yes Central Line Catheter Replacement*: Yes Central Line Insertion: emergent Consent Obtained: verbal consent, written consent Procedural Pause: verify patient name and date of , timeout performed per policy, cindy and assess the site, assemble equipment and verify supplies, perform hand hygiene Patient Placed on Monitor/Pulse Ox: Yes During the Procedure: clinician is wearing sterile gloves, cap, mask,& gown during insertion, sterile field and sterile technique are maintained, patient's face is covered with drape or mask and wearing a cap, everyone in room is wearing a mask Central Line Prep: Chlorhexidine scrub Prep the Procedure Site: apply chloraprep to the skin using a back and forth scrubbing motion, apply chloraprep for 30 seconds (upper body), 1-2 min ( femoral sites), allow prep to dry, drape the patient with a full body drape Ultrasound Used for Placement: Yes Central Line Lumen Inserted: triple Post Procedure: sutured in place, good blood return (in 2 of 3 lines - non return line clamped and marked), all ports aspirated, flushed, capped, sterile dressing applied, guide wire removed and visualized, dressing is dated Patient Tolerated Procedure: well Complications: hematoma at puncture site Medical Decision Making - Medical Records Medical records reviewed: Yes I reviewed the patient's medical records. - Lab Data Lab results reviewed: Yes I reviewed the patient's lab results. Result diagrams: 11/02/17 15:43 11/02/17 15:43 Lab Results 11/02/17 11/02/17 11/02/17 Range/Units 15:43 15:43 15:43 WBC 7.3 (4.3-11.1) K/mcL RBC 2.86 L (4.19-5.50) M/mcL Hgb 9.0 L (12.9-16.9) g/dL Hct 28.3 L (37.5-50.1) % MCV 99.0 (83.0-100.0) fL MCH 31.5 (28.0-33.3) pg MCHC 31.8 (31.6-35.5) g/dL RDW 17.8 H (11.5-14.5) % Plt Count 206 (140-400) K/mcL MPV 9.3 L (9.4-12.4) fL Immature Gran % 1.4 (0-4) % Seg Neutrophils % 81.5 % Lymphocytes % 6.6 % Monocytes % 8.6 % Eosinophils % 1.6 % Basophils % 0.3 % Neutrophils # 6.0 (1.6-8.9) K/mcL Lymphocytes # 0.5 L (0.6-4.6) K/mcL Monocytes # 0.6 (0.0-1.3) K/mcL Eosinophils # 0.1 (0.0-0.6) K/mcL Basophils # 0.0 (0.0-0.2) K/mcL PT 18.0 H (9.4-12.1) Seconds INR 1.6 APTT 42.4 H (26.0-36.0) Seconds Sodium 135 L (136-145) mEq/L Potassium 3.6 (3.5-5.1) mEq/L Chloride 100 (98-107) mEq/L Carbon Dioxide 22 L (23-29) mEq/L BUN 89 H (8-23) mg/dL Creatinine 1.37 H (0.70-1.30) mg/dL Est GFR ( Amer) 60 (> 60) Est GFR (Non-Af Amer) 49 L (> 60) BUN/Creatinine Ratio 65 H (6-26) Glucose 155 H (70-105) mg/dL Calculated Osmolality 310 H (280-300) Lactic Acid (0.5-2.2) mmol/L Calcium 7.9 L (8.6-10.3) mg/dL Magnesium 2.0 (1.6-2.6) mg/dL Troponin I 0.10 H* (< 0.04) ng/mL B-Natriuretic Peptide (Less than 100) pg/mL Urine Color (Yellow) Urine Clarity (Clear) Urine pH (5.0-8.0) pH Units Ur Specific [place] (1.010-1.025) Urine Protein (Neg-Trace) mg/dL Urine Glucose (UA) (Normal) mg/dL Urine Ketones (Negative) mg/dL Urine Blood (Negative) Urine Nitrite (Negative) Urine Bilirubin (Negative) Urine Urobilinogen (Normal) mg/dL Ur Leukocyte Esterase (Negative) Urine Microscopic RBC (0-3) per hpf Urine Microscopic WBC (0-3) per hpf Ur Squamous Epith Cells (None-Few) per lpf Urine Bacteria (None-Few) per hpf Hyaline Casts (None-Few) per lpf Ur Culture Indicated? (NO) 11/02/17 11/02/17 11/02/17 Range/Units 15:43 16:20 16:40 WBC (4.3-11.1) K/mcL RBC (4.19-5.50) M/mcL Hgb (12.9-16.9) g/dL Hct (37.5-50.1) % MCV (83.0-100.0) fL MCH (28.0-33.3) pg MCHC (31.6-35.5) g/dL RDW (11.5-14.5) % Plt Count (140-400) K/mcL MPV (9.4-12.4) fL Immature Gran % (0-4) % Seg Neutrophils % % Lymphocytes % % Monocytes % % Eosinophils % % Basophils % % Neutrophils # (1.6-8.9) K/mcL Lymphocytes # (0.6-4.6) K/mcL Monocytes # (0.0-1.3) K/mcL Eosinophils # (0.0-0.6) K/mcL Basophils # (0.0-0.2) K/mcL PT (9.4-12.1) Seconds INR APTT (26.0-36.0) Seconds Sodium (136-145) mEq/L Potassium (3.5-5.1) mEq/L Chloride (98-107) mEq/L Carbon Dioxide (23-29) mEq/L BUN (8-23) mg/dL Creatinine (0.70-1.30) mg/dL Est GFR ( Amer) (> 60) Est GFR (Non-Af Amer) (> 60) BUN/Creatinine Ratio (6-26) Glucose (70-105) mg/dL Calculated Osmolality (280-300) Lactic Acid 2.0 (0.5-2.2) mmol/L Calcium (8.6-10.3) mg/dL Magnesium (1.6-2.6) mg/dL Troponin I (< 0.04) ng/mL B-Natriuretic Peptide 464 H (Less than 100) pg/mL Urine Color Yellow (Yellow) Urine Clarity Cloudy A (Clear) Urine pH 5.0 (5.0-8.0) pH Units Ur Specific [place] 1.022 (1.010-1.025) Urine Protein Trace (Neg-Trace) mg/dL Urine Glucose (UA) Normal (Normal) mg/dL Urine Ketones Negative (Negative) mg/dL Urine Blood Large H (Negative) Urine Nitrite Negative (Negative) Urine Bilirubin Negative (Negative) Urine Urobilinogen Normal (Normal) mg/dL Ur Leukocyte Esterase Large H (Negative) Urine Microscopic RBC TNTC H (0-3) per hpf Urine Microscopic WBC 5-15 H (0-3) per hpf Ur Squamous Epith Cells Moderate H (None-Few) per lpf Urine Bacteria None Seen (None-Few) per hpf Hyaline Casts Few (None-Few) per lpf Ur Culture Indicated? YES A (NO) - Radiology Data Radiology results reviewed: Yes I reviewed the patient's radiology results. - EKG Data EKG #1 EKG attestation: Yes I reviewed and interpreted this EKG. EKG results narrative: EKG shows ventricular rate of 87. ID 80. QRS 191. QTC 474. Atrial and ventricularly paced rhythm. Patient does have elevations in V2 and V3 that are not quite 5 mm of discordant change. Patient denies chest pain. Does not meet STEMI criteria at this time. Critical Care Time Critical Care Time: Yes Total Critical Care Time: 55 Attestation: I have personally provided 55 minutes of critical care time exclusive of time spent on separately billable procedures. Time includes review of laboratory data , radiology results, discussion with consultants, and monitoring for potential decompensation. Interventions were performed as documented above.
[2017-11-02] MEDS ORDERED: Levofloxacin 750 MG/150 ML 750 MG/150 ML BAG IVPB ONE (16:24)
[2017-11-02 16:38] LABS: Basophils % 0.3 %; Eosinophils # 0.1 K/mcL (0.0-0.6); Eosinophils % 1.6 %; Hematocrit 28.3 % (37.5-50.1); Immature Granulocytes % 1.4 % (0-4); Lymphocytes # 0.5 K/mcL (0.6-4.6); Lymphocytes % 6.6 %; Mean Corpuscular HGB Conc 31.8 g/dL (31.6-35.5); Mean Corpuscular Hemoglobin 31.5 pg (28.0-33.3); Mean Platelet Volume 9.3 fL (9.4-12.4); Monocytes # 0.6 K/mcL (0.0-1.3); Monocytes % 8.6 %; Platelet Count 206 K/mcL (140-400); Red Blood Count 2.86 M/mcL (4.19-5.50); Red Cell Distribution Width 17.8 % (11.5-14.5); Segmented Neutrophils % 81.5 %
[2017-11-02 16:43] LABS: INR 1.6
[2017-11-02 16:46] LABS: Activated Partial Thrombo Time 42.4 Seconds (26.0-36.0)
[2017-11-02 16:55] LABS: Bilirubin,Urine Negative (Negative); Blood,Urine Large (Negative); Clarity,Urine Cloudy (Clear); Color,Urine Yellow (Yellow); Glucose,Urine (UA) Normal (Normal); Ketones,Urine Negative (Negative); Leukocyte Esterase,Urine Large (Negative); Nitrite,Urine Negative (Negative); Protein,Urine Trace mg/dL (Neg-Trace); Specific Gravity,Urine 1.022 (1.010-1.025); Urobilinogen,Urine Normal (Normal)
[2017-11-02 16:58] LABS: Bacteria,Urine None Seen per hpf (None-Few); Squamous Epithelial Cell,Urine Moderate per lpf (None-Few)
[2017-11-02 17:03] LABS: Troponin I 0.1 ng/mL (< 0.04)
[2017-11-02 17:08] LABS: Calcium 7.9 mg/dL (8.6-10.3); Potassium 3.6 mEq/L (3.5-5.1)
[2017-11-02 17:13] LABS: Hyaline Casts,Urine Few per lpf (None-Few); RBC,Urine TNTC per hpf (0-3)
[2017-11-02] MEDS ORDERED: Aspirin 81 MG TAB.CHEW PO STA (17:55)
[2017-11-02] MEDS: 0.9 % Sodium Chloride 1,000 ML IVC SCH (18:11)
[2017-11-02] MEDS: Norepinephrine 4 MG in D5% in Water 250 ML IVC SCH (19:50)
[2017-11-02] MEDS ORDERED: Naloxone 0.4 MG/ML INJ IVP PRN (20:44)
--- NOTE | 2017-11-02 20:48 | Internal Med History&Physical ---
Date of Encounter: 11/03/17 Time of Encounter: 20:46 Internal Medicine - H&P: HPI Chief complaint: dyspnea Admitted From: Emergency Dept Plans for Post Hospital Care: [facility] History of present illness: Mr. Vázquez is a 87 year old male with PMH CKD stage III, DVT, pacemaker, Alzheimer's, diabetes, CHF presented to [facility] from [facility] via EMS for further management of pneumonia and cellulitis. The patient is a poor historian so medical records were reviewed. He has a chronic urinary catheter in place. He stated that he has had stool incontinence, increased left arm swelling. He is unable to elaborate how long his arm has been swollen. He has slowly had increased weakness and difficulty feeling his legs so not been able to walk for some time. He denies fever, chills, dysuria, hematuria, cough, shortness of breath, wheezing, chest pain, headache. In the ED, he was found to be in septic shock most likely secondary to UTI, sacral decubitus ulcer. Blood pressure 77/51, tachycardia 104, afebrile. Creatinine 1.37, WBC 7.3, troponin 0.10, lactic acid 2.0, BNP 464. Urinalysis demonstrated large leukocyte esterase positive. Chest x-ray showed opacity/ effusion bilaterally right-side greater than left. In the ED a right femoral central line was placed and he was given 2L IV fluids, levophed, Zosyn, vancomycin, Levaquin. The patient was then transferred to the ICU. He is a full code. Of note, he was recently admitted to the hospital in October 03, 2017 and was admitted for septic shock secondary to pneumonia, UTI, bacteremia, sacral decubitus ulcer. Infectious disease was consulted and urine culture and bacteremia growing E. coli ESBL requiring treatment with ertapenem. Past Med Surg Social Fam HX - Past Medical History Attestation: Yes The following information was validated with the patient. Source: patient, old records reviewed Medical history: arthritis, CHF, DVT, diabetes, hypertension, kidney stones, renal disease, other Additional medical history: UTI,PAcer, Alzheimers, Cellulitis Psychiatric history: anxiety - Past Surgical History Surgical History: herniorrhaphy, pacemaker/AICD Additional surgical history: I7D LLE. Back Surgery. Right knee. von wellenbrand. bilat carpal tunnel - Social History Smoking Status: Never smoker Smokeless Tobacco Status: No Alcohol use: none, rarely Drug use: none - Family History Father Hx Family Cardiac Disorders: Yes Hx Family Respiratory Disorders: No Hx Family Cancer: No Hx Family GI Disorders: No Hx Family Endocrine Disorder: No Hx Family Neuromuscular Disorders: No Hx Family Neurologic Disorders: No Hx Family HEENT Disorders: No Hx Family Autoimmune Disorders: No Mother Family Member Ethnicity: Non- Living Status: Hx Family Cardiac Disorders: No Hx Family Respiratory Disorders: No Hx Family Cancer: No Hx Family GI Disorders: No Hx Family Endocrine Disorder: No Hx Family Neuromuscular Disorders: No Hx Family Neurologic Disorders: No Hx Family HEENT Disorders: No Hx Family Autoimmune Disorders: No Internal Medicine - H&P: Meds Tamsulosin [Flomax] 0.4 mg PO DAILY capsule 08/06/15 [Rx] Atorvastatin [Lipitor] 40 mg PO DAILY 09/07/15 [History] Cholecalciferol (D-3) [Vitamin D] 2,000 unit PO DAILY 05/09/17 [History] Furosemide [Lasix] 40 mg PO DAILY 07/27/17 [History] Apixaban [Eliquis] 2.5 mg PO BID #60 tablet 07/30/17 [Rx] Aspirin Enteric Coated [Aspirin EC] 81 mg PO DAILY #30 tablet. 07/30/17 [Rx] Ondansetron [Zofran ODT] 8 mg PO TID PRN 09/01/17 [History] PARoxetine HCl [Paroxetine HCl] 10 mg PO QAM 09/01/17 [History] Gabapentin [Neurontin] 300 mg PO BID 7 Days #14 capsule 09/06/17 [Rx] Acetaminophen [Tylenol Arthritis] 650 mg PO TID 09/13/17 [History] Docusate [Colace] 100 mg PO BID 09/13/17 [History] Insulin LISPRO [HumaLOG] 0 units SQ TIDAC #1 each 09/24/17 [Rx] Losartan [Cozaar] 25 mg PO DAILY 09/26/17 [History] Benzonatate [Tessalon] 100 mg PO TID 10/03/17 [History] Guaifenesin [Mucinex] 600 mg PO BID 10/03/17 [History] Ipratropium/Albuterol Neb [Duoneb] 3 ml IH Q6HR 10/03/17 [History] 3 Allergy/AdvReac Type Severity Reaction Status Date / Time No Known Allergies Allergy Verified 10/03/17 21:14 All Systems PM: A 10-system review of systems was performed and is negative for pertinent findings except as documented above in the HPI. - Constitutional Constitutional: weakness, no chills, no fever(s), no malaise - EENT Eyes: no change in vision - Cardiovascular Cardiovascular ROS IM: edema, no chest pain, no diaphoresis, no lightheadedness - Respiratory Respiratory: no cough, no dyspnea, no wheezing - Gastrointestinal Gastrointestinal: fecal incontinence, no abdominal pain, no diarrhea, no nausea , no vomiting - Genitourinary Genitourinary ROS male: no dysuria, no hematuria - Musculoskeletal Musculoskeletal ROS IM: no back pain - Integumentary Integumentary IM: skin ulcer (Sacral decubitus ulcer and heal ulcers) - Neurological Neurological ROS: numbness (Bilateral lower extremities), weakness - Constitutional Vitals: Temp Pulse Resp BP Pulse Ox 97.5 F L 78 20 92/57 99 11/02/17 15:41 11/02/17 20:00 11/02/17 20:00 11/02/17 20:00 11/02/17 20:00 General appearance: Present: A&O X 3, pleasant, no acute distress - Head Head exam: Present: atraumatic, normocephalic - Eye Eye exam: Present: normal appearance. Absent: conjunctival injection - Respiratory Respiratory exam: Present: rales (bilateral). Absent: rhonchi, wheezes - Cardiovascular Cardiovascular exam: Present: RRR - GI/Abdominal GI/Abdominal exam: Present: normal bowel sounds, soft. Absent: tenderness - Expanded Upper Extremities Exam Upper Arm exam: Present: ecchymosis, swelling (Left arm). Absent: tenderness - Expanded Lower Extremities Exam Lower Leg exam: Present: swelling (3+ pitting edema). Absent: ecchymosis, tenderness - Neurological Exam Neurological exam: Present: alert, oriented X3 - Psychiatric Psychiatric exam: Present: normal affect, normal mood - Skin Skin exam: Absent: intact (10x6cm eschar on coccyx ) Internal Med - H&P Results - Labs CBC & Chem 7: 11/02/17 15:43 11/02/17 15:43 - Assessment and plan (1) Septic shock Current Visit: Yes Status: Acute Assessment and plan: Septic shock most likely secondary to UTI, sacral decubitus ulcer. Blood pressure 77/51, tachycardia 104, afebrile. -WBC 7.3, lactic acid 2.0 -Urinalysis demonstrated large leukocyte esterase positive. -In the ED a right femoral central line was placed and he was given 2L IV fluids , levophed, Zosyn, vancomycin, Levaquin. Blood pressure improved with IV fluids and pressor support. Plan -start IV Ertapenem due to previous admission 10/03/2017 septic shock secondary to bacteremia and urine culture growing E. coli ESBL. Will de-escalate antibiotics is able -blood culture pending -urine culture pending -patient requiring vasopressor -patient received IV fluids per sepsis protocol (2) Recurrent urinary tract infection Current Visit: No Status: Acute Assessment and plan: Urinary tract infection demonstrated by positive leukocyte esterase -10/03/2017: urine culture growing E. coli ESBL requiring treatment with ertapenem. -Antibiotics as above -urine culture pending (3) VIRGILIO (acute kidney injury) Current Visit: No Status: Acute Assessment and plan: Acute kidney injury likely prerenal secondary to hypotension in setting of sepsis, urinary tract infection, losartan, Lasix creatinine 1.37 (1.08, 2-weeks ago) -protein creatinine ratio ordered -monitor renal function -avoid nephrotoxic agents -monitor I&O -continue IV fluids (4) Left upper extremity swelling Current Visit: Yes Status: Acute Assessment and plan: Patient has diffuse left upper extremity swelling that he states has been present for a little while. He is a poor historian. May be related to CHF and VIRGILIO? Pulses are palpable, edematous, nontender. -Will continue to monitor (5) CKD (chronic kidney disease) stage 3, GFR 30-59 ml/min Current Visit: No Status: Acute Assessment and plan: Known CKD stage III creatinine baseline 1.3-1.6 (6) Elevated troponin Current Visit: No Status: Acute Assessment and plan: Likely demand ischemia and not ACS. Patient denies chest pain. troponin 0.1 -> 0.1 EKG -continue to trend (7) Congestive heart failure Current Visit: No Status: Chronic Assessment and plan: History of CHF. Unlikely to be in exacerbation, patient denies shortness of breath. BNP 464, at baseline. -chest x-ray similar compared to prior with small bilateral pleural effusion. 09/2017 TTE: EF= 50- 55% -Monitor I&O -daily weights Qualifiers: Heart failure type: systolic Heart failure chronicity: chronic Qualified Code(s): I50.22 - Chronic systolic (congestive) heart failure (8) Pressure ulcer of coccygeal region Current Visit: No Status: Chronic Assessment and plan: Chronic 10 x 6cm sacral decubitus ulcer eschar. -Wound care ordered -antibiotics as above Qualifiers: Pressure ulcer stage: unstageable Qualified Code(s): L89.150 - Pressure ulcer of sacral region, unstageable (9) Diabetes mellitus Current Visit: No Status: Chronic Assessment and plan: History of diabetes taking insulin. -Low dose sliding scale insulin -diabetic diet -Accu checks Qualifiers: Diabetes mellitus type: type 2 Diabetes mellitus fpc insulin use: without fpc use Diabetes mellitus complication status: with kidney complications Diabetes mellitus complication detail: with chronic kidney disease Chronic kidney disease stage: stage 3 (moderate) Qualified Code(s): E11.22 - Type 2 diabetes mellitus with diabetic chronic kidney disease; N18.3 - Chronic kidney disease, stage 3 (moderate) (10) Hypertension Current Visit: No Status: Chronic Assessment and plan: History of hypertension the currently holding home medications due to hypertension in setting of sepsis Qualifiers: Hypertension type: essential hypertension Qualified Code(s): I10 - Essential (primary) hypertension (11) Pacemaker Current Visit: No Status: Chronic (12) Pressure ulcer of ankle, right, unstageable Current Visit: No Status: Acute Assessment and plan: Chronic lower extremity heel ulcers -Wound care ordered (13) Deep vein thrombosis (DVT) of right lower extremity Current Visit: No Status: Chronic Assessment and plan: History of known chronic lower extremity DVT taking Eliquis. Chronic lower extremity edema. -continue home medication Qualifiers: Affected thrombotic vein of extremity: femoral Chronicity: chronic Qualified Code(s): I82.511 - Chronic embolism and thrombosis of right femoral vein (14) DVT prophylaxis Current Visit: No Status: Acute Assessment and plan: Continue home eliquis - Time Spent With Patient Total time spent is greater than 50% in coordination of care (as documented) at patient's floor/unit and/or counseling patient:
[2017-11-02] MEDS: Insulin LISPRO 300 UNITS/3 ML VIAL SQ SCH (22:08)
[2017-11-02] MEDS ORDERED: Ringers Solution, Lactated 1,000 ML IVC ONE (23:47)
[2017-11-03] MEDS: 0.9 % Sodium Chloride 1,000 ML IVC SCH ×4 (02:26→21:46)
[2017-11-03 04:32] LABS: Basophils % 0.4 %; Eosinophils # 0.2 K/mcL (0.0-0.6); Eosinophils % 2.3 %; Hematocrit 29.2 % (37.5-50.1); Hemoglobin 9.5 g/dL (12.9-16.9); Immature Granulocytes % 2.4 % (0-4); Lymphocytes # 0.5 K/mcL (0.6-4.6); Lymphocytes % 6.7 %; Mean Corpuscular HGB Conc 32.5 g/dL (31.6-35.5); Mean Corpuscular Hemoglobin 31.9 pg (28.0-33.3); Mean Platelet Volume 8.8 fL (9.4-12.4); Monocytes # 0.6 K/mcL (0.0-1.3); Monocytes % 9.1 %; Neutrophils # 5.6 K/mcL (1.6-8.9); Platelet Count 196 K/mcL (140-400); Red Blood Count 2.98 M/mcL (4.19-5.50); Red Cell Distribution Width 17.7 % (11.5-14.5); Segmented Neutrophils % 79.1 %
[2017-11-03 04:55] LABS: BUN/Creatinine Ratio 66 (6-26); Blood Urea Nitrogen 82 mg/dL (8-23); Calcium 7.8 mg/dL (8.6-10.3); Carbon Dioxide 23 mEq/L (23-29); Chloride 102 mEq/L (98-107); Glucose 162 mg/dL (70-105); Osmolality,Calculated 310 (280-300); Potassium 3.2 mEq/L (3.5-5.1); Sodium 136 mEq/L (136-145); eGFR For African Americans > 60 (> 60); eGFR For Non-African Americans 55 (> 60)
[2017-11-03] MEDS: Apixaban 5 MG TABLET PO SCH ×2 (08:14→21:22)
[2017-11-03] MEDS: Insulin LISPRO 300 UNITS/3 ML VIAL SQ SCH ×4 (08:15→21:00)
[2017-11-03] MEDS: Aspirin Enteric Coated 81 MG Tablet PO SCH (08:15)
--- NOTE | 2017-11-03 08:47 | Internal Med Progress Note ---
<Laurel Quintero N - Last Filed: 11/03/17 18:14> Date of Encounter: 11/03/17 Time of Encounter: 08:46 - Assessment and plan (1) Septic shock Current Visit: Yes Status: Acute Assessment and plan: Patient is currently on IV antibiotics for multiple infections. Due to urine culture showing E. coli ESBL on last admission, patient is currently on ertapenem. He had some mild hypokalemia on morning labs, which was correct as appropriate. Order placed for monitoring and adjustment of electrolytes as needed. Levaphed has been stopped at this time. Will continue to monitor labs and clinical status. (2) Recurrent urinary tract infection Current Visit: No Status: Acute Assessment and plan: Likely secondary to chronic indwelling maria catheter, which was present on admission. Currently on IV erbepenem. (3) Congestive heart failure Current Visit: No Status: Chronic Assessment and plan: Patient is currently edematous. Lasix 40mg IVP ordered daily, starting tomorrow morning. Will continue close monitoring of kidney function and blood pressures. Patient may be third spacing due to hypoalbuminemia, which we will evaluate with morning labs tomorrow. Qualifiers: Heart failure type: systolic Heart failure chronicity: chronic Qualified Code(s): I50.22 - Chronic systolic (congestive) heart failure (4) Elevated troponin Current Visit: No Status: Acute Assessment and plan: Likely secondary to demand ischemia. Patient denies chest pain at this time. Will continue to watch and assess as appropriate. (5) CKD (chronic kidney disease) stage 3, GFR 30-59 ml/min Current Visit: No Status: Acute Assessment and plan: Diuresis with lasix ordered for tomorrow morning. Will monitor kidney function and address as needed. (6) Diabetes mellitus Current Visit: No Status: Chronic Assessment and plan: Accuchecks and sliding scale insulin per protocol. Qualifiers: Diabetes mellitus type: type 2 Diabetes mellitus prison insulin use: without prison use Diabetes mellitus complication status: with kidney complications Diabetes mellitus complication detail: with chronic kidney disease Chronic kidney disease stage: stage 3 (moderate) Qualified Code(s): E11.22 - Type 2 diabetes mellitus with diabetic chronic kidney disease; N18.3 - Chronic kidney disease, stage 3 (moderate) (7) Hypertension Current Visit: No Status: Chronic Assessment and plan: Continue home medication regimen. Qualifiers: Hypertension type: essential hypertension Qualified Code(s): I10 - Essential (primary) hypertension (8) Left upper extremity swelling Current Visit: Yes Status: Acute Assessment and plan: Likely due to cellulitis in this region; however,considering this patient's history of chronic bilateral LE DVT, there is concern for possible UE DVT. As patient is currently on antibiotics, we will reassess with plans to order UE ultrasound if swelling and erythema do not improve. (9) DVT prophylaxis Current Visit: No Status: Acute Assessment and plan: Patient is on Eliquis. (10) Sacral decubitus ulcer Current Visit: Yes Status: Chronic Assessment and plan: Wound care consult placed. Qualifiers: Pressure injury stage: unspecified pressure injury stage Qualified Code(s) : L89.159 - Pressure ulcer of sacral region, unspecified stage - Time Spent With Patient Total time spent is greater than 50% in coordination of care (as documented) at patient's floor/unit and/or counseling patient: - Subjective Interval history: Mr. Vázquez is an ill-appearing elderly gentleman transferred from the intermediate last night for more extensive management of pneumonia and cellulitis. He was septic upon admission and required ICU care and pressure support with Levophed. Workup also revealed UTI and bilateral sacral decubitus ulcers. Upon exam this morning, he is a conversant and responsive to questions, but appears to be a poor historian. He complains of cough with sputum, though he is unsure what color his sputum is. He is unsure how long his left arm has been edematous and erythematous, but says "it's been a while". Levophed drip had been turned off as of examination this morning, with nursing staff keeping a close watch on his pressure. He denies any further complaints or concerns at this time. - Constitutional Vitals: Temp Pulse Resp BP Pulse Ox 96.6 F L 97 22 72/51 99 11/03/17 07:42 11/03/17 06:00 11/03/17 06:00 11/03/17 06:00 11/03/17 06:00 General appearance: Present: A&O X 3, pleasant, no acute distress Exam: Ill-appearing male in no acute distress. He answers questions, but does not give a good history. - Head Additional comments: Atraumatic and normocephalic. - Respiratory Additional comments: Harsh lung sounds bilaterally with poor air movement. - Cardiovascular Additional comments: Diminished heart sounds. Regular rate and rhythm. Mild murmur present. - GI/Abdominal Additional comments: Protuberant abdomen that is soft and nontender. Bowel sounds are present in all 4 quadrants. - Additional comments: Chronic indwelling maria catheter that was present upon admission. - Extremities Exam Additional comments: Generalized edema in all extremities. Discoloration of skin over anterior tibia. 2+ pitting edema bilaterally. Left upper extremity is erythematous and there is a marked increase in swelling as compared to the right upper extremity. - Neurological Exam Additional comments: No movement of bilateral toes upon request. 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 Internal Medicine: Result - Labs CBC & Chem 7: 11/03/17 09:15 11/03/17 09:15 Labs: Short CBC 11/03/17 Range/Units 04:11 WBC 7.0 (4.3-11.1) K/mcL Hgb 9.5 L (12.9-16.9) g/dL Hct 29.2 L (37.5-50.1) % Plt Count 196 (140-400) K/mcL Neutrophils # 5.6 (1.6-8.9) K/mcL BMP 11/03/17 04:11 Sodium 136 Potassium 3.2 L Chloride 102 Carbon Dioxide 23 BUN 82 H Creatinine 1.24 Glucose 162 H Calcium 7.8 L Cardiac Enzymes 11/02/17 11/03/17 Range/Units 21:43 04:11 Troponin I 0.10 H* 0.10 H* (< 0.04) ng/mL - ABG Interpretation ABG results: PT/INR, D-dimer PT 18.0 Seconds (9.4-12.1) H 11/02/17 15:43 Consult Discharge Plan - Plan Referrals: Radha Jones, [employer] [Primary Care Provider] - <Brennan Palma - Last Filed: 11/03/17 18:44> Date of Encounter: 11/03/17 - Assessment and plan (1) UTI (urinary tract infection) Current Visit: Yes Status: Acute Assessment and plan: Present on admit. Qualifiers: Urinary tract infection type: catheter-associated UTI Indwelling urinary catheter type: indwelling urethral catheter Encounter type: initial encounter Qualified Code(s): T83.511A - Infection and inflammatory reaction due to indwelling urethral catheter, initial encounter; N39.0 - Urinary tract infection , site not specified (2) Septic shock Current Visit: Yes Status: Acute (3) Diabetes mellitus Current Visit: No Status: Chronic Qualifiers: Diabetes mellitus type: type 2 Diabetes mellitus prison insulin use: without termite exterminator helper use Diabetes mellitus complication status: with kidney complications Diabetes mellitus complication detail: with chronic kidney disease Chronic kidney disease stage: stage 3 (moderate) Qualified Code(s): E11.22 - Type 2 diabetes mellitus with diabetic chronic kidney disease; N18.3 - Chronic kidney disease, stage 3 (moderate) (4) DVT prophylaxis Current Visit: No Status: Acute (5) Hypertension Current Visit: No Status: Chronic Qualifiers: Hypertension type: essential hypertension Qualified Code(s): I10 - Essential (primary) hypertension (6) Elevated troponin Current Visit: No Status: Acute (7) Congestive heart failure Current Visit: No Status: Chronic Qualifiers: Heart failure type: systolic Heart failure chronicity: chronic Qualified Code(s): I50.22 - Chronic systolic (congestive) heart failure (8) Recurrent urinary tract infection Current Visit: No Status: Acute (9) CKD (chronic kidney disease) stage 3, GFR 30-59 ml/min Current Visit: No Status: Chronic (10) Left upper extremity swelling Current Visit: Yes Status: Acute (11) Sacral decubitus ulcer Current Visit: Yes Status: Chronic Qualifiers: Pressure injury stage: unspecified pressure injury stage Qualified Code(s) : L89.159 - Pressure ulcer of sacral region, unspecified stage - Time Spent With Patient Total time spent is greater than 50% in coordination of care (as documented) at patient's floor/unit and/or counseling patient: - Constitutional Vitals: Temp Pulse Resp BP Pulse Ox 96.4 F L 79 22 104/70 96 11/03/17 16:00 11/03/17 18:00 11/03/17 18:00 11/03/17 18:00 11/03/17 18:00 Internal Medicine: Result - Labs CBC & Chem 7: 11/03/17 09:15 11/03/17 09:15 Labs: Short CBC 11/03/17 11/03/17 Range/Units 04:11 09:15 WBC 7.0 7.0 (4.3-11.1) K/mcL Hgb 9.5 L 9.0 L (12.9-16.9) g/dL Hct 29.2 L 28.1 L (37.5-50.1) % Plt Count 196 172 (140-400) K/mcL Neutrophils # 5.6 5.7 (1.6-8.9) K/mcL BMP 11/03/17 11/03/17 04:11 09:15 Sodium 136 137 Potassium 3.2 L 3.3 L Chloride 102 104 Carbon Dioxide 23 23 BUN 82 H 82 H Creatinine 1.24 1.25 Glucose 162 H 185 H Calcium 7.8 L 7.7 L Cardiac Enzymes 11/02/17 11/03/17 Range/Units 21:43 04:11 Troponin I 0.10 H* 0.10 H* (< 0.04) ng/mL - ABG Interpretation ABG results: PT/INR, D-dimer PT 18.0 Seconds (9.4-12.1) H 11/02/17 15:43 - Attending Attestation I examined this patient and my medical decision-making was reviewed with the Resident Physician on 11/03/17. I agree with the documented findings, disposition and treatment plan as described except to the extent set forth below. Mr Vázquez is currently admitted for septic shock related to CAUTI that was present on admission. He is on IV pressor. He remains high risk at this time. Mr Vázquez does not respond to me. No fever or chills. No SOB noted but does have sleep apnea noted. Exam Sedated. Arouses to pain. Mucus membranes dry Heart distant Coarse rhonchi Abd soft Edema present I/P 1. Septic shock 2. CAUTI present on admit Further diagnoses and plan as above.
[2017-11-03] MEDS: Ertapenem 1,000 MG in 0.9 % Sodium Chloride Mini Bag 100 ML IVPB SCH (10:30)
[2017-11-03 11:00] LABS: Basophils % 0.3 %; Eosinophils # 0.2 K/mcL (0.0-0.6); Eosinophils % 2.1 %; Hematocrit 28.1 % (37.5-50.1); Immature Granulocytes % 1.9 % (0-4); Lymphocytes # 0.4 K/mcL (0.6-4.6); Lymphocytes % 5.8 %; Mean Corpuscular Hemoglobin 31.6 pg (28.0-33.3); Mean Corpuscular Volume 98.6 fL (83.0-100.0); Mean Platelet Volume 8.5 fL (9.4-12.4); Monocytes # 0.6 K/mcL (0.0-1.3); Monocytes % 8.4 %; Neutrophils # 5.7 K/mcL (1.6-8.9); Platelet Count 172 K/mcL (140-400); Red Blood Count 2.85 M/mcL (4.19-5.50); Red Cell Distribution Width 17.8 % (11.5-14.5); Segmented Neutrophils % 81.5 %
[2017-11-03 14:32] LABS: BUN/Creatinine Ratio 66 (6-26); Blood Urea Nitrogen 82 mg/dL (8-23); Calcium 7.7 mg/dL (8.6-10.3); Carbon Dioxide 23 mEq/L (23-29); Chloride 104 mEq/L (98-107); Glucose 185 mg/dL (70-105); Osmolality,Calculated 314 (280-300); Potassium 3.3 mEq/L (3.5-5.1); Sodium 137 mEq/L (136-145); eGFR For African Americans > 60 (> 60); eGFR For Non-African Americans 55 (> 60)
[2017-11-03] MEDS: Norepinephrine 4 MG in D5% in Water 250 ML IVC SCH (16:18)
[2017-11-03] MEDS: Potassium Chloride 40 MEQ/200 ML BAG IVPB PRN (16:21)
--- NOTE | 2017-11-03 17:19 | Electrocardiograph Report ---
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
[2017-11-04] MEDS: Vancomycin Oral Soln 125 MG/2.5 ML UDC PO SCH ×5 (03:49→20:22)
[2017-11-04 04:55] LABS: Albumin 2.2 g/dL (3.5-5.7); BUN/Creatinine Ratio 71 (6-26); Blood Urea Nitrogen 83 mg/dL (8-23); Calcium 7.8 mg/dL (8.6-10.3); Carbon Dioxide 22 mEq/L (23-29); Chloride 106 mEq/L (98-107); Glucose 156 mg/dL (70-105); Osmolality,Calculated 316 (280-300); Potassium 3.4 mEq/L (3.5-5.1); Sodium 139 mEq/L (136-145); eGFR For African Americans > 60 (> 60); eGFR For Non-African Americans 59 (> 60)
[2017-11-04 05:25] LABS: Basophils % 0.3 %; Eosinophils # 0.1 K/mcL (0.0-0.6); Eosinophils % 1.4 %; Hematocrit 29.6 % (37.5-50.1); Hemoglobin 9.4 g/dL (12.9-16.9); Immature Granulocytes % 2.1 % (0-4); Lymphocytes # 0.4 K/mcL (0.6-4.6); Lymphocytes % 5.6 %; Mean Corpuscular HGB Conc 31.8 g/dL (31.6-35.5); Mean Corpuscular Hemoglobin 31.2 pg (28.0-33.3); Mean Corpuscular Volume 98.3 fL (83.0-100.0); Mean Platelet Volume 8.3 fL (9.4-12.4); Monocytes # 0.5 K/mcL (0.0-1.3); Monocytes % 6.8 %; Neutrophils # 6.5 K/mcL (1.6-8.9); Platelet Count 177 K/mcL (140-400); Red Blood Count 3.01 M/mcL (4.19-5.50); Red Cell Distribution Width 17.8 % (11.5-14.5); Segmented Neutrophils % 83.8 %
[2017-11-04] MEDS: Potassium Chloride 40 MEQ/200 ML BAG IVPB PRN (05:35)
[2017-11-04] MEDS: 0.9 % Sodium Chloride 1,000 ML IVC SCH ×3 (05:38→20:18)
[2017-11-04] MEDS: Insulin LISPRO 300 UNITS/3 ML VIAL SQ SCH ×4 (08:17→20:19)
[2017-11-04] MEDS: Apixaban 5 MG TABLET PO SCH ×2 (08:18→20:22)
[2017-11-04] MEDS: Aspirin Enteric Coated 81 MG Tablet PO SCH (08:18)
[2017-11-04] MEDS ORDERED: Furosemide 40 MG/4 ML VIAL IVP SCH (09:00)
[2017-11-04] MEDS ORDERED: Ondansetron 4 MG/2 ML VIAL IVP PRN ×2 (10:22→12:35)
[2017-11-04] MEDS ORDERED: Ondansetron 4 MG/2 ML VIAL ONE (10:24)
[2017-11-04] MEDS: Ertapenem 1,000 MG in 0.9 % Sodium Chloride Mini Bag 100 ML IVPB SCH (10:29)
[2017-11-04] MEDS ORDERED: *HR* HYDROcodone/Acet 5/325 mg TABLET PO PRN (10:38)
--- NOTE | 2017-11-04 11:41 | Internal Med Progress Note ---
<Jake Simon - Last Filed: 11/04/17 11:38> Date of Encounter: 11/04/17 Time of Encounter: 10:45 - Assessment and plan (1) Septic shock Current Visit: Yes Status: Acute Assessment and plan: Patient is currently on IV antibiotics for multiple infections. Due to urine culture showing E. coli ESBL on last admission, patient is currently on ertapenem. He had some mild hypokalemia on morning labs, which was correct as appropriate. Order placed for monitoring and adjustment of electrolytes as needed. Levaphed has been stopped at this time. Will continue to monitor labs and clinical status. 11/04 Cultures remain negative, however risk for ESBL continues The patient did have positive C. diff overnight, was started on PO Vanc Cdiff could certainly be a potential source of sepsis His BP has remained stable off of pressors, and he is stable for transfer to telemetry (2) UTI (urinary tract infection) Current Visit: Yes Status: Acute Assessment and plan: Catheter related UTI present on admit. Qualifiers: Urinary tract infection type: catheter-associated UTI Indwelling urinary catheter type: indwelling urethral catheter Encounter type: initial encounter Qualified Code(s): T83.511A - Infection and inflammatory reaction due to indwelling urethral catheter, initial encounter; N39.0 - Urinary tract infection , site not specified (3) Diabetes mellitus Current Visit: No Status: Chronic Assessment and plan: Accuchecks and sliding scale insulin per protocol. Qualifiers: Diabetes mellitus type: type 2 Diabetes mellitus penitentiary insulin use: without penitentiary use Diabetes mellitus complication status: with kidney complications Diabetes mellitus complication detail: with chronic kidney disease Chronic kidney disease stage: stage 3 (moderate) Qualified Code(s): E11.22 - Type 2 diabetes mellitus with diabetic chronic kidney disease; N18.3 - Chronic kidney disease, stage 3 (moderate) (4) Hypertension Current Visit: No Status: Chronic Assessment and plan: Continue home medication regimen. Qualifiers: Hypertension type: essential hypertension Qualified Code(s): I10 - Essential (primary) hypertension (5) Elevated troponin Current Visit: No Status: Acute Assessment and plan: Likely secondary to demand ischemia. Patient denies chest pain at this time. Will continue to watch and assess as appropriate. (6) Congestive heart failure Current Visit: No Status: Chronic Assessment and plan: Patient is currently edematous. Lasix 40mg IVP ordered daily, starting tomorrow morning. Will continue close monitoring of kidney function and blood pressures. Patient may be third spacing due to hypoalbuminemia, which we will evaluate with morning labs tomorrow. 7/7 Remains profoundly volume overloaded on exam, however may remain intravascularly depleted due to CHF + Low protein. Continue diuresis as indicated Qualifiers: Heart failure type: systolic Heart failure chronicity: chronic Qualified Code(s): I50.22 - Chronic systolic (congestive) heart failure (7) CKD (chronic kidney disease) stage 3, GFR 30-59 ml/min Current Visit: Yes Status: Chronic Assessment and plan: Diuresis with lasix ordered for tomorrow morning. Will monitor kidney function and address as needed. (8) Left upper extremity swelling Current Visit: Yes Status: Acute Assessment and plan: Likely due to cellulitis in this region; however,considering this patient's history of chronic bilateral LE DVT, there is concern for possible UE DVT. As patient is currently on antibiotics, we will reassess with plans to order UE ultrasound if swelling and erythema do not improve. 7/7 Stable from previous exam, likely ecchymosis and chronic stasis. Will continue to monitor (9) Sacral decubitus ulcer Current Visit: Yes Status: Chronic Assessment and plan: Wound care consult placed. Qualifiers: Pressure injury stage: unspecified pressure injury stage Qualified Code(s) : L89.159 - Pressure ulcer of sacral region, unspecified stage (10) DVT prophylaxis Current Visit: No Status: Acute Assessment and plan: Patient is on Eliquis. (11) Clostridium difficile diarrhea Current Visit: Yes Status: Acute Assessment and plan: Patient had acute loose stools overnight, C. diff positive Could be potential source of septic shock, and may also play role in intravascular volume depletion Started PO Vanc day 1, Continue precautions - Time Spent With Patient Total time spent is greater than 50% in coordination of care (as documented) at patient's floor/unit and/or counseling patient: - Subjective Interval history: The patient is resting comfortably in bed at time of examination. Overnight he was having loose stools and the night physician ordered a c. diff which came back positive. He was started on PO Vanc. He has no other acute complaints. - Constitutional Vitals: Temp Pulse Resp BP Pulse Ox 96.9 F L 79 14 92/71 100 11/04/17 08:30 07/07/18 10:00 11/04/17 10:00 11/04/17 10:00 11/04/17 10:00 General appearance: Present: A&O X 3, pleasant, no acute distress Exam: - Head Additional comments: Atraumatic and normocephalic. - Respiratory Additional comments: Harsh lung sounds bilaterally with poor air movement. - Cardiovascular Additional comments: Diminished heart sounds. Regular rate and rhythm. Mild murmur present. - GI/Abdominal Additional comments: Protuberant abdomen that is soft and nontender. Bowel sounds are present in all 4 quadrants. - Additional comments: Chronic indwelling maria catheter that was present upon admission. - Extremities Exam Additional comments: Generalized edema in all extremities. Discoloration of skin over anterior tibia. 2+ pitting edema bilaterally. Left upper extremity is erythematous and there is a marked increase in swelling as compared to the right upper extremity. - Neurological Exam Additional comments: No movement of bilateral toes upon request. 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 Internal Medicine: Result - Labs CBC & Chem 7: 11/04/17 05:14 11/04/17 04:20 Labs: Short CBC 11/04/17 Range/Units 05:14 WBC 7.8 (4.3-11.1) K/mcL Hgb 9.4 L (12.9-16.9) g/dL Hct 29.6 L (37.5-50.1) % Plt Count 177 (140-400) K/mcL Neutrophils # 6.5 (1.6-8.9) K/mcL BMP 11/03/17 11/04/17 09:15 04:20 Sodium 137 139 Potassium 3.3 L 3.4 L Chloride 104 106 Carbon Dioxide 23 22 L BUN 82 H 83 H Creatinine 1.25 1.17 Glucose 185 H 156 H Calcium 7.7 L 7.8 L Liver Function 11/04/17 Range/Units 04:20 Albumin 2.2 L (3.5-5.7) g/dL - ABG Interpretation ABG results: PT/INR, D-dimer PT 18.0 Seconds (9.4-12.1) H 11/02/17 15:43 Consult Discharge Plan - Plan Referrals: Radha Jones, [employer] DIRECT[employer] [Primary Care Provider] - <Brennan Palma - Last Filed: 11/04/17 12:21> Date of Encounter: 11/04/17 - Assessment and plan (1) Diabetes mellitus Current Visit: No Status: Chronic Qualifiers: Diabetes mellitus type: type 2 Diabetes mellitus penitentiary insulin use: without meterman use Diabetes mellitus complication status: with kidney complications Diabetes mellitus complication detail: with chronic kidney disease Chronic kidney disease stage: stage 3 (moderate) Qualified Code(s): E11.22 - Type 2 diabetes mellitus with diabetic chronic kidney disease; N18.3 - Chronic kidney disease, stage 3 (moderate) (2) DVT prophylaxis Current Visit: No Status: Acute (3) Hypertension Current Visit: No Status: Chronic Qualifiers: Hypertension type: essential hypertension Qualified Code(s): I10 - Essential (primary) hypertension (4) Elevated troponin Current Visit: No Status: Acute (5) Congestive heart failure Current Visit: No Status: Chronic Qualifiers: Heart failure type: systolic Heart failure chronicity: chronic Qualified Code(s): I50.22 - Chronic systolic (congestive) heart failure (6) CKD (chronic kidney disease) stage 3, GFR 30-59 ml/min Current Visit: Yes Status: Chronic (7) Septic shock Current Visit: Yes Status: Acute (8) Left upper extremity swelling Current Visit: Yes Status: Acute (9) Sacral decubitus ulcer Current Visit: Yes Status: Chronic Qualifiers: Pressure injury stage: unspecified pressure injury stage Qualified Code(s) : L89.159 - Pressure ulcer of sacral region, unspecified stage (10) UTI (urinary tract infection) Current Visit: Yes Status: Suspected Qualifiers: Urinary tract infection type: catheter-associated UTI Indwelling urinary catheter type: indwelling urethral catheter Encounter type: initial encounter Qualified Code(s): T83.511A - Infection and inflammatory reaction due to indwelling urethral catheter, initial encounter; N39.0 - Urinary tract infection , site not specified (11) Clostridium difficile diarrhea Current Visit: Yes Status: Acute - Time Spent With Patient Total time spent is greater than 50% in coordination of care (as documented) at patient's floor/unit and/or counseling patient: - Constitutional Vitals: Temp Pulse Resp BP Pulse Ox 96.9 F L 79 14 92/71 100 11/04/17 08:30 11/04/17 10:00 11/04/17 10:00 11/04/17 10:00 11/04/17 10:00 Internal Medicine: Result - Labs CBC & Chem 7: 11/04/17 05:14 11/04/17 04:20 Labs: Short CBC 11/04/17 Range/Units 05:14 WBC 7.8 (4.3-11.1) K/mcL Hgb 9.4 L (12.9-16.9) g/dL Hct 29.6 L (37.5-50.1) % Plt Count 177 (140-400) K/mcL Neutrophils # 6.5 (1.6-8.9) K/mcL BMP 11/03/17 11/04/17 09:15 04:20 Sodium 137 139 Potassium 3.3 L 3.4 L Chloride 104 106 Carbon Dioxide 23 22 L BUN 82 H 83 H Creatinine 1.25 1.17 Glucose 185 H 156 H Calcium 7.7 L 7.8 L Liver Function 11/04/17 Range/Units 04:20 Albumin 2.2 L (3.5-5.7) g/dL - ABG Interpretation ABG results: PT/INR, D-dimer PT 18.0 Seconds (9.4-12.1) H 11/02/17 15:43 - Attending Attestation I examined this patient and my medical decision-making was reviewed with the Resident Physician on 11/04/17. I agree with the documented findings, disposition and treatment plan as described except to the extent set forth below. Mr Vázquez is currently admitted for sepsis most likely related to C diff. He also had significant volume depletion. He is now off pressors. He remains moderate to high risk due to potential for worsening clinical status. Mr Vázquez is feeling a little better today. No fever or chills. Off pressors now. No abd pain at this time but did have some nausea and vomiting earlier. Also had some back pain. Exam Alert Comfortable at this time Mucus membranes dry Heart paced. Irreg. No overt wheeze Abd soft and nontender at this time. Diffuse anasarca noted I/P 1. Septic shock most likely due to C diff - resolved 2. Hypotension most likely due to volume depletion - improved Further diagnoses and plan as above.
[2017-11-04] MEDS ORDERED: Naloxone 0.4 MG/ML INJ IVP PRN (12:35)
[2017-11-04] MEDS: *HR* HYDROcodone/Acet 5/325 mg TABLET PO PRN (13:15)
[2017-11-05 06:19] LABS: BUN/Creatinine Ratio 65 (6-26); Blood Urea Nitrogen 80 mg/dL (8-23); Carbon Dioxide 25 mEq/L (23-29); Chloride 106 mEq/L (98-107); Glucose 201 mg/dL (70-105); Osmolality,Calculated 316 (280-300); Potassium 3.9 mEq/L (3.5-5.1); Sodium 138 mEq/L (136-145); eGFR For African Americans > 60 (> 60); eGFR For Non-African Americans 55 (> 60)
--- NOTE | 2017-11-05 07:27 | Internal Med Progress Note ---
<Laurel Quintero N - Last Filed: 11/05/17 13:48> Date of Encounter: 11/05/17 Time of Encounter: 07:27 - Assessment and plan (1) Septic shock Current Visit: Yes Status: Acute Assessment and plan: Day #3 of IV ertapenem. Septic shock likely secondary to C. difficile; however, will continue ertapenem for a total of 5 days due to recent history of ESBL. He complains of nonproductive cough - will try guaifenesin to assist. Discontinued fluids due to general edematous state and history of CHF. We will continue to monitor and adjust as appropriate. (2) Diabetes mellitus Current Visit: No Status: Chronic Assessment and plan: Continue accuchecks and sliding scale insulin per protocol. Qualifiers: Diabetes mellitus type: type 2 Diabetes mellitus chcf insulin use: without intermodal dispatcher use Diabetes mellitus complication status: with kidney complications Diabetes mellitus complication detail: with chronic kidney disease Chronic kidney disease stage: stage 3 (moderate) Qualified Code(s): E11.22 - Type 2 diabetes mellitus with diabetic chronic kidney disease; N18.3 - Chronic kidney disease, stage 3 (moderate) (3) DVT prophylaxis Current Visit: No Status: Acute Assessment and plan: Continue Eliquis. (4) Hypertension Current Visit: No Status: Chronic Assessment and plan: Continue medication. Qualifiers: Hypertension type: essential hypertension Qualified Code(s): I10 - Essential (primary) hypertension (5) Elevated troponin Current Visit: No Status: Acute Assessment and plan: Suspect secondary to demand ischemia. Will continue to monitor. (6) Congestive heart failure Current Visit: No Status: Chronic Assessment and plan: Patient is quite edematous, with 1-2+ pitting edema in bilateral lower extremities. Discontinued IV fluids. Will continue diuresis with monitoring of renal function. Qualifiers: Heart failure type: systolic Heart failure chronicity: chronic Qualified Code(s): I50.22 - Chronic systolic (congestive) heart failure (7) CKD (chronic kidney disease) stage 3, GFR 30-59 ml/min Current Visit: Yes Status: Chronic Assessment and plan: Lasix diuresis with monitoring of renal function. (8) Left upper extremity swelling Current Visit: Yes Status: Acute Assessment and plan: Improvement in erythema with some decrease in swelling. Suspect that some edema is due to chronic stasis. Will continue IV antibiotics and monitoring. (9) Sacral decubitus ulcer Current Visit: Yes Status: Chronic Assessment and plan: Wound care consult placed. Qualifiers: Pressure injury stage: unspecified pressure injury stage Qualified Code(s) : L89.159 - Pressure ulcer of sacral region, unspecified stage (10) UTI (urinary tract infection) Current Visit: Yes Status: Suspected Assessment and plan: Catheter related UTI present on admission. Will continue current therapy. Qualifiers: Urinary tract infection type: catheter-associated UTI Indwelling urinary catheter type: indwelling urethral catheter Encounter type: initial encounter Qualified Code(s): T83.511A - Infection and inflammatory reaction due to indwelling urethral catheter, initial encounter; N39.0 - Urinary tract infection , site not specified (11) Clostridium difficile diarrhea Current Visit: Yes Status: Acute Assessment and plan: Likely underlying cause of septic shock. Patient currently on PO vancomycin. Will continue contact precautions. - Time Spent With Patient Total time spent is greater than 50% in coordination of care (as documented) at patient's floor/unit and/or counseling patient: - Subjective Interval history: Mr. Vázquez appears improved today. Nursing staff reports a cough overnight that has been nonproductive. He has been tolerating diet without issue. - Constitutional Vitals: Temp Pulse Resp BP Pulse Ox 97.3 F L 69 18 105/69 95 11/05/17 07:19 11/05/17 07:19 11/05/17 07:19 11/05/17 07:19 11/05/17 07:19 General appearance: Present: A&O X 3, pleasant, no acute distress Exam: Awake and conversational. Responds to questions. Does not appear to be in acute distress. - Head Additional comments: Atraumatic and normocephalic. - Respiratory Additional comments: Harsh breath sounds bilaterally with expiratory wheezes. - Cardiovascular Additional comments: Distant heart sounds. Regular rate and rhythm. - Extremities Exam Additional comments: Generalized edema present that is 2+ in bilateral lower extremities. Lower extremities show evidence of chronic venous stasis. Left upper extremity shows improvement in edema and erythema, though it has not totally resolved. Internal Medicine: Result - Labs CBC & Chem 7: 11/04/17 05:14 11/05/17 05:32 Labs: BMP 11/05/17 05:32 Sodium 138 Potassium 3.9 Chloride 106 Carbon Dioxide 25 BUN 80 H Creatinine 1.24 Glucose 201 H Calcium 8.0 L - ABG Interpretation ABG results: PT/INR, D-dimer PT 18.0 Seconds (9.4-12.1) H 11/02/17 15:43 Consult Discharge Plan - Plan Referrals: Radha Jones, RAIL DIRECTOR [Primary Care Provider] - <Brennan Palma - Last Filed: 11/05/17 17:22> Date of Encounter: 11/05/17 - Assessment and plan (1) Diabetes mellitus Current Visit: No Status: Chronic Qualifiers: Diabetes mellitus type: type 2 Diabetes mellitus chcf insulin use: without intermodal dispatcher use Diabetes mellitus complication status: with kidney complications Diabetes mellitus complication detail: with chronic kidney disease Chronic kidney disease stage: stage 3 (moderate) Qualified Code(s): E11.22 - Type 2 diabetes mellitus with diabetic chronic kidney disease; N18.3 - Chronic kidney disease, stage 3 (moderate) (2) DVT prophylaxis Current Visit: No Status: Acute (3) Hypertension Current Visit: No Status: Chronic Qualifiers: Hypertension type: essential hypertension Qualified Code(s): I10 - Essential (primary) hypertension (4) Elevated troponin Current Visit: No Status: Acute (5) Congestive heart failure Current Visit: No Status: Chronic Qualifiers: Heart failure type: systolic Heart failure chronicity: chronic Qualified Code(s): I50.22 - Chronic systolic (congestive) heart failure (6) CKD (chronic kidney disease) stage 3, GFR 30-59 ml/min Current Visit: Yes Status: Chronic (7) Septic shock Current Visit: Yes Status: Acute (8) Left upper extremity swelling Current Visit: Yes Status: Acute (9) Sacral decubitus ulcer Current Visit: Yes Status: Chronic Qualifiers: Pressure injury stage: unspecified pressure injury stage Qualified Code(s) : L89.159 - Pressure ulcer of sacral region, unspecified stage (10) UTI (urinary tract infection) Current Visit: Yes Status: Suspected Qualifiers: Urinary tract infection type: catheter-associated UTI Indwelling urinary catheter type: indwelling urethral catheter Encounter type: initial encounter Qualified Code(s): T83.511A - Infection and inflammatory reaction due to indwelling urethral catheter, initial encounter; N39.0 - Urinary tract infection , site not specified (11) Clostridium difficile diarrhea Current Visit: Yes Status: Acute - Time Spent With Patient Total time spent is greater than 50% in coordination of care (as documented) at patient's floor/unit and/or counseling patient: - Constitutional Vitals: Temp Pulse Resp BP Pulse Ox 97.5 F L 83 18 125/86 98 11/05/17 15:51 11/05/17 15:51 11/05/17 15:51 11/05/17 15:51 11/05/17 15:51 Internal Medicine: Result - Labs CBC & Chem 7: 11/04/17 05:14 11/05/17 05:32 Labs: BMP 11/05/17 05:32 Sodium 138 Potassium 3.9 Chloride 106 Carbon Dioxide 25 BUN 80 H Creatinine 1.24 Glucose 201 H Calcium 8.0 L - ABG Interpretation ABG results: PT/INR, D-dimer PT 18.0 Seconds (9.4-12.1) H 11/02/17 15:43 - Attending Attestation I examined this patient and my medical decision-making was reviewed with the Resident Physician on 11/05/17. I agree with the documented findings, disposition and treatment plan as described except to the extent set forth below. Mr Vázquez is currently admitted for acute septic shock most likely due to C diff. He remains moderate to high risk due to potential for worsening clinical status. Mr Vázquez is doing OK. He is eating breakfast. No fever or chills. His BP has been more stable now. He is not eating very well. He is still very edematous but better than yesterday. Exam Alert Comfortable Mucus membranes dry Heart distant No wheeze Abd soft Edema present I/P 1. Septic shock resolved 2. Acute c diff Currently on Invanz to cover urine - treat total of 5 days. Further diagnoses and plan as above. Most likely will be able to d/c in next 1-2 days.
[2017-11-05] MEDS: Apixaban 5 MG TABLET PO SCH ×2 (09:18→22:46)
[2017-11-05] MEDS: *HR* HYDROcodone/Acet 5/325 mg TABLET PO PRN ×2 (09:19→22:51)
[2017-11-05] MEDS: Aspirin Enteric Coated 81 MG Tablet PO SCH (09:19)
[2017-11-05] MEDS: Furosemide 40 MG/4 ML VIAL IVP SCH (09:20)
[2017-11-05] MEDS: Insulin LISPRO 300 UNITS/3 ML VIAL SQ SCH ×4 (09:26→22:47)
--- NOTE | 2017-11-05 09:46 | General Surgery Progress Note ---
Date of Encounter: 11/05/17 Time of Encounter: 08:00 - Assessment and Plan (1) Sacral decubitus ulcer Current Visit: Yes Status: Chronic Monitor development of wound. Qualifiers: Qualified Code(s): L89.159 - Pressure ulcer of sacral region, unspecified stage Subjective Narrative: Patient okay to start tube feeds. Will check on patient at noon to see how he is doing. Objective Vital Signs - Last 8 Hours Temp Pulse Resp BP Pulse Ox 11/05/17 07:19 97.3 F L 69 18 105/69 95 11/05/17 03:52 95.4 F L 76 20 99/61 93 Intake and Output 11/04/17 11/05/17 11/05/17 23:59 07:59 15:59 Intake Total 125 / 125 360 / 360 Output Total 250 / 250 Balance -250 / -250 125 / 125 360 / 360 Intake: Oral 125 / 125 360 / 360 Output: Catheter 250 / 250 Other: Meal Breakfast Percent of Meal Consumed 75% Stool Size Small Stool Consistency loose Stool Color Brown # Bowel Movements 1 Blood Glucose* 259 - Labs 11/04/17 05:14 11/05/17 05:32 Diabetes panel 11/05/17 Range/Units 05:32 Sodium 138 (136-145) mEq/L Potassium 3.9 (3.5-5.1) mEq/L Chloride 106 (98-107) mEq/L Carbon Dioxide 25 (23-29) mEq/L BUN 80 H (8-23) mg/dL Creatinine 1.24 (0.70-1.30) mg/dL Glucose 201 H (70-105) mg/dL Calcium 8.0 L (8.6-10.3) mg/dL Calcium panel 11/05/17 Range/Units 05:32 Calcium 8.0 L (8.6-10.3) mg/dL Pituitary panel 11/05/17 Range/Units 05:32 Sodium 138 (136-145) mEq/L Potassium 3.9 (3.5-5.1) mEq/L Chloride 106 (98-107) mEq/L Carbon Dioxide 25 (23-29) mEq/L BUN 80 H (8-23) mg/dL Creatinine 1.24 (0.70-1.30) mg/dL Glucose 201 H (70-105) mg/dL Calcium 8.0 L (8.6-10.3) mg/dL Adrenal panel 11/05/17 Range/Units 05:32 Sodium 138 (136-145) mEq/L Potassium 3.9 (3.5-5.1) mEq/L Chloride 106 (98-107) mEq/L Carbon Dioxide 25 (23-29) mEq/L BUN 80 H (8-23) mg/dL Creatinine 1.24 (0.70-1.30) mg/dL Glucose 201 H (70-105) mg/dL Calcium 8.0 L (8.6-10.3) mg/dL Consult Discharge Plan - Plan Referrals: Radha Jones, MANAGER FINANCIAL REPORTING [Primary Care Provider] -
[2017-11-05] MEDS: Vancomycin Oral Soln 125 MG/2.5 ML UDC PO SCH ×4 (09:47→22:47)
[2017-11-05] MEDS: Ertapenem 1,000 MG in 0.9 % Sodium Chloride Mini Bag 100 ML IVPB SCH (09:49)
--- NOTE | 2017-11-05 15:51 | Event Note ---
Date of Encounter: 11/05/17 Time of Encounter: 15:47 patient well known to me from wound clinic; Please have patient follow up with me in clinic once discharged from this admission. cont with recommend wound care
[2017-11-06] MEDS: *HR* HYDROcodone/Acet 5/325 mg TABLET PO PRN (05:40)
[2017-11-06 08:18] LABS: Basophils % 0.2 %; Eosinophils # 0.1 K/mcL (0.0-0.6); Hematocrit 31.6 % (37.5-50.1); Hemoglobin 9.8 g/dL (12.9-16.9); Immature Granulocytes % 2.5 % (0-4); Lymphocytes # 0.5 K/mcL (0.6-4.6); Lymphocytes % 5.4 %; Mean Corpuscular Hemoglobin 31.3 pg (28.0-33.3); Mean Platelet Volume 8.8 fL (9.4-12.4); Monocytes # 0.4 K/mcL (0.0-1.3); Monocytes % 4.9 %; Neutrophils # 7.7 K/mcL (1.6-8.9); Platelet Count 161 K/mcL (140-400); Red Blood Count 3.13 M/mcL (4.19-5.50); Red Cell Distribution Width 17.9 % (11.5-14.5)
--- NOTE | 2017-11-06 08:24 | Internal Med Progress Note ---
<Laurel Quintero N - Last Filed: 11/06/17 14:29> Date of Encounter: 11/06/17 Time of Encounter: 08:24 - Assessment and plan (1) Clostridium difficile diarrhea Current Visit: Yes Status: Acute Assessment and plan: Likely underlying cause of septic shock. Patient is improving clinically, and nursing staff reports no continued diarrhea. Plan to continue PO vancomycin. Discontinued ertepenam. Will continue contact precautions. (2) Protein calorie malnutrition Current Visit: Yes Status: Acute Assessment and plan: Nutrition consult placed. Likely contributing to his overall edematous state. Qualifiers: Protein-calorie malnutrition severity: unspecified severity Qualified Code( s): E46 - Unspecified protein-calorie malnutrition (3) Septic shock Current Visit: Yes Status: Acute Assessment and plan: Likely secondary to C. difficile diarrhea. Patient is improving clinically. Will continue PO vancomycin and monitoring. (4) Diabetes mellitus Current Visit: No Status: Chronic Assessment and plan: Continue accuchecks and sliding scale insulin per protocol. Qualifiers: Diabetes mellitus type: type 2 Diabetes mellitus nursing home insulin use: without ad terminal makeup operator use Diabetes mellitus complication status: with kidney complications Diabetes mellitus complication detail: with chronic kidney disease Chronic kidney disease stage: stage 3 (moderate) Qualified Code(s): E11.22 - Type 2 diabetes mellitus with diabetic chronic kidney disease; N18.3 - Chronic kidney disease, stage 3 (moderate) (5) DVT prophylaxis Current Visit: No Status: Acute Assessment and plan: Continue Eliquis. (6) Hypertension Current Visit: No Status: Chronic Assessment and plan: Continue medication. Qualifiers: Hypertension type: essential hypertension Qualified Code(s): I10 - Essential (primary) hypertension (7) Elevated troponin Current Visit: No Status: Acute Assessment and plan: Suspect secondary to demand ischemia. Will continue to monitor. (8) Congestive heart failure Current Visit: No Status: Chronic Assessment and plan: Patient is quite edematous, with 1-2+ pitting edema in bilateral lower extremities. Discontinued IV fluids. Will continue diuresis with monitoring of renal function. Qualifiers: Heart failure type: systolic Heart failure chronicity: chronic Qualified Code(s): I50.22 - Chronic systolic (congestive) heart failure (9) CKD (chronic kidney disease) stage 3, GFR 30-59 ml/min Current Visit: Yes Status: Chronic Assessment and plan: Lasix diuresis with monitoring of renal function. (10) Left upper extremity swelling Current Visit: Yes Status: Acute Assessment and plan: Minimal improvement from yesterday. Suspect some of erythema is discoloration due to chronic venous stasis. Will continue to monitor. (11) Sacral decubitus ulcer Current Visit: Yes Status: Chronic Assessment and plan: Wound care consult placed. Qualifiers: Pressure injury stage: unspecified pressure injury stage Qualified Code(s) : L89.159 - Pressure ulcer of sacral region, unspecified stage (12) Anasarca Current Visit: Yes Status: Acute Assessment and plan: Likely secondary to protein calorie malnutrition. Nutrition consult placed. Lasix 40mg IV BID to reduce his fluid volume. Will continue to monitor renal status. - Time Spent With Patient Total time spent is greater than 50% in coordination of care (as documented) at patient's floor/unit and/or counseling patient: - Subjective Interval history: Mr. Vázquez appears improved today. Nursing staff reports no diarrhea overnight. He complains of cough and sputum that he is unable to cough up. He denies any other concerns at this time. - Constitutional Vitals: Temp Pulse Resp BP Pulse Ox 97.6 F 70 16 132/70 93 11/06/17 05:00 11/06/17 07:24 11/06/17 07:24 11/06/17 07:24 11/06/17 07:24 General appearance: Present: A&O X 3, pleasant, no acute distress Exam: Alert and conversant. Answers questions appropriately. Anasarca present. - Head Additional comments: Atraumatic and normocephalic. - Respiratory Additional comments: Harsh breath sounds bilaterally. - Cardiovascular Additional comments: Regular rate and rhythm. No murmurs, rubs, or gallops. - Extremities Exam Additional comments: 2+ pitting edema in bilateral lower extremities. Edema present in upper extremities. Left upper extremity still shows erythema of the skin and increased swelling versus the right upper extremity. - Neurological Exam Additional comments: Patient moves both upper extremities spontaneously. He reports no sensation in his lower extremities. Internal Medicine: Result - Labs CBC & Chem 7: 11/06/17 07:54 11/06/17 07:54 Labs: Short CBC 11/06/17 Range/Units 07:54 WBC 8.9 (4.3-11.1) K/mcL Hgb 9.8 L (12.9-16.9) g/dL Hct 31.6 L (37.5-50.1) % Plt Count 161 (140-400) K/mcL Neutrophils # 7.7 (1.6-8.9) K/mcL - ABG Interpretation ABG results: PT/INR, D-dimer PT 18.0 Seconds (9.4-12.1) H 11/02/17 15:43 Consult Discharge Plan - Plan Referrals: Radha Jones, DIRECTOR OF LABOR RELATIONS [Primary Care Provider] - (will go back to [facility]) <Antionette Grimes - Last Filed: 11/06/17 15:03> Date of Encounter: 11/06/17 - Assessment and plan (1) Diabetes mellitus Current Visit: No Status: Chronic Qualifiers: Diabetes mellitus type: type 2 Diabetes mellitus ad terminal makeup operator insulin use: without nursing home use Diabetes mellitus complication status: with kidney complications Diabetes mellitus complication detail: with chronic kidney disease Chronic kidney disease stage: stage 3 (moderate) Qualified Code(s): E11.22 - Type 2 diabetes mellitus with diabetic chronic kidney disease; N18.3 - Chronic kidney disease, stage 3 (moderate) (2) DVT prophylaxis Current Visit: No Status: Acute (3) Hypertension Current Visit: No Status: Chronic Qualifiers: Hypertension type: essential hypertension Qualified Code(s): I10 - Essential (primary) hypertension (4) Elevated troponin Current Visit: No Status: Acute (5) Congestive heart failure Current Visit: No Status: Chronic Qualifiers: Heart failure type: systolic Heart failure chronicity: chronic Qualified Code(s): I50.22 - Chronic systolic (congestive) heart failure (6) CKD (chronic kidney disease) stage 3, GFR 30-59 ml/min Current Visit: Yes Status: Chronic (7) Septic shock Current Visit: Yes Status: Acute (8) Left upper extremity swelling Current Visit: Yes Status: Acute (9) Sacral decubitus ulcer Current Visit: Yes Status: Chronic Qualifiers: Pressure injury stage: unspecified pressure injury stage Qualified Code(s) : L89.159 - Pressure ulcer of sacral region, unspecified stage (10) Clostridium difficile diarrhea Current Visit: Yes Status: Acute (11) Protein calorie malnutrition Current Visit: Yes Status: Acute Qualifiers: Protein-calorie malnutrition severity: unspecified severity Qualified Code( s): E46 - Unspecified protein-calorie malnutrition (12) Anasarca Current Visit: Yes Status: Acute - Time Spent With Patient Total time spent is greater than 50% in coordination of care (as documented) at patient's floor/unit and/or counseling patient: - Constitutional Vitals: Temp Pulse Resp BP Pulse Ox 96.5 F L 61 16 124/76 93 11/06/17 10:56 11/06/17 10:56 11/06/17 11:32 11/06/17 10:56 11/06/17 11:32 Internal Medicine: Result - Labs CBC & Chem 7: 11/06/17 07:54 11/06/17 07:54 Labs: Short CBC 11/06/17 Range/Units 07:54 WBC 8.9 (4.3-11.1) K/mcL Hgb 9.8 L (12.9-16.9) g/dL Hct 31.6 L (37.5-50.1) % Plt Count 161 (140-400) K/mcL Neutrophils # 7.7 (1.6-8.9) K/mcL BMP 11/06/17 07:54 Sodium 136 Potassium 4.0 Chloride 105 Carbon Dioxide 23 BUN 84 H Creatinine 1.36 H Glucose 194 H Calcium 8.2 L - ABG Interpretation ABG results: PT/INR, D-dimer PT 18.0 Seconds (9.4-12.1) H 11/02/17 15:43 - Impressions Impressions Chest X-Ray 11/06/17 08:54 IMPRESSION: Findings are suggestive of congestive heart failure with increasing moderate bilateral pleural effusions. D/ / Beverly Ramos MD / Beverly Ramos MD Interpreting Provider: Beverly Ramos MD - Attending Attestation I examined this patient and my medical decision-making was reviewed with the Resident Physician Dr. Quintero. I agree with the documented findings, disposition and treatment plan as described except to the extent set forth below. Mr. Vázquez is a 87 year old male with PMH CKD stage III, DVT, pacemaker, Alzheimer's, diabetes, diastolic CHF pt admitted here for septic shock with C. Diff infection and ?? UTI. He was started on PO Vancomycin and empirical abx Invanz for her UTI since pt has ESBL +ve inf in the past. Pt is more alert, awake and O x 3. Does have diffuse swelling all over the body with volume overload. He denied any CP Gen: A< A< O x3 Chest . Diminished BS, mild rales Heart: S1S2+ Ext: 2+ pitting edema Scrotal edema a/p 1. Septic shock- mostly due to C. Diff 2. C. Diff colitis cont pO Vanco 3. ?? UTI - Urine cx no growth d/c Invanz 4. Volume overload 5. Anasarca - Generalized edema Lasix 40 IV BID 6. Chronic diastolic CHF Not in decompensation 7. Sacral ulcer 8. PCM - moderate
[2017-11-06] MEDS ORDERED: Ipratropium/Albuterol Neb 3 ML IH PRN (08:35)
[2017-11-06] MEDS ORDERED: Ipratropium/Albuterol Neb 3 ML ONE (08:35)
[2017-11-06] MEDS: Ipratropium/Albuterol Neb 3 ML IH SCH ×5 (08:37→23:15)
[2017-11-06 08:57] LABS: BUN/Creatinine Ratio 62 (6-26); Blood Urea Nitrogen 84 mg/dL (8-23); Calcium 8.2 mg/dL (8.6-10.3); Carbon Dioxide 23 mEq/L (23-29); Chloride 105 mEq/L (98-107); Glucose 194 mg/dL (70-105); Osmolality,Calculated 313 (280-300); Sodium 136 mEq/L (136-145); eGFR For African Americans > 60 (> 60); eGFR For Non-African Americans 50 (> 60)
[2017-11-06] MEDS: Insulin LISPRO 300 UNITS/3 ML VIAL SQ SCH ×4 (08:57→21:14)
[2017-11-06] MEDS: Aspirin Enteric Coated 81 MG Tablet PO SCH (08:58)
[2017-11-06] MEDS: Furosemide 40 MG/4 ML VIAL IVP SCH ×2 (08:58→17:39)
[2017-11-06] MEDS: Apixaban 5 MG TABLET PO SCH ×2 (08:58→21:12)
[2017-11-06] MEDS: Ertapenem 1,000 MG in 0.9 % Sodium Chloride Mini Bag 100 ML IVPB SCH (09:00)
[2017-11-06] MEDS: Vancomycin Oral Soln 125 MG/2.5 ML UDC PO SCH ×4 (09:00→21:13)
[2017-11-07] MEDS: Ipratropium/Albuterol Neb 3 ML IH SCH ×6 (04:46→23:14)
[2017-11-07 05:21] LABS: Basophils % 0.2 %; Eosinophils # 0.1 K/mcL (0.0-0.6); Eosinophils % 1.1 %; Hematocrit 29.4 % (37.5-50.1); Hemoglobin 9.3 g/dL (12.9-16.9); Immature Granulocytes % 1.7 % (0-4); Lymphocytes # 0.4 K/mcL (0.6-4.6); Lymphocytes % 4.3 %; Mean Corpuscular HGB Conc 31.6 g/dL (31.6-35.5); Mean Corpuscular Hemoglobin 31.5 pg (28.0-33.3); Mean Corpuscular Volume 99.7 fL (83.0-100.0); Mean Platelet Volume 8.2 fL (9.4-12.4); Monocytes # 0.4 K/mcL (0.0-1.3); Monocytes % 4.4 %; Neutrophils # 8.4 K/mcL (1.6-8.9); Platelet Count 124 K/mcL (140-400); Red Blood Count 2.95 M/mcL (4.19-5.50); Red Cell Distribution Width 17.5 % (11.5-14.5); Segmented Neutrophils % 88.3 %
[2017-11-07 05:37] LABS: BUN/Creatinine Ratio 64 (6-26); Blood Urea Nitrogen 87 mg/dL (8-23); Calcium 8.2 mg/dL (8.6-10.3); Carbon Dioxide 24 mEq/L (23-29); Chloride 105 mEq/L (98-107); Glucose 217 mg/dL (70-105); Osmolality,Calculated 319 (280-300); Sodium 138 mEq/L (136-145); eGFR For African Americans > 60 (> 60); eGFR For Non-African Americans 50 (> 60)
--- NOTE | 2017-11-07 07:54 | Internal Med Progress Note ---
<Laurel Quintero N - Last Filed: 11/07/17 16:57> Date of Encounter: 11/07/17 Time of Encounter: 07:54 - Assessment and plan (1) Clostridium difficile diarrhea Current Visit: Yes Status: Acute Assessment and plan: Day #4 of vancomycin 125mg PO QID. Patient reports no recent episodes of diarrhea. He remains afebrile, with a WBC count within normal limits. Plan to continue vancomycin PO for a minimum of 10 days. Will continue to monitor for recurrent bouts of diarrhea. Continued contact precautions. (2) Left upper extremity swelling Current Visit: Yes Status: Acute Assessment and plan: Unchanged from yesterday. Suspect some of erythema is discoloration due to chronic venous stasis. With patient's history of chronic bilateral DVTs, it is possible that he has a DVT in his left upper extremity as well. Considered ultrasound of that extremity to assess; however, treatment plan would not be adjusted as the patient is already anticoagulated with Eliquis. Will continue to monitor.. (3) Protein calorie malnutrition Current Visit: Yes Status: Acute Assessment and plan: Nutrition consult placed. Suspect that this is contributing to his fluid overloaded state as serum albumin was low (2.2L on 11/04) and patient is likely third spacing. Considered addition of IV albumin; however, there is no strong evidence suggesting that this would improve his fluid status significantly. Patient does complain of a decreased appetite, for which he was started on marinol 2.5mg. Will continue to adjust and make dietary recommendations/changes as appropriate. Qualifiers: Protein-calorie malnutrition severity: unspecified severity Qualified Code( s): E46 - Unspecified protein-calorie malnutrition (4) Congestive heart failure Current Visit: No Status: Chronic Assessment and plan: Patient remains edematous, with minimal response from IV lasix. His overall fluid balance yesterday was -340mL; however, he remains fluid overloaded, with a cumulative balance of 4314mL for this hospitalization. Plan to continue lasix 40mg IVP BID and add metolazone 5mg. Will continue his home medication regimen of aspirin and lipitor; however, will continue to hold losartan to allow for further diuresis. Will consider restarting that medication and adding a beta carolyne at time of discharge. Qualifiers: Heart failure type: systolic Heart failure chronicity: chronic Qualified Code(s): I50.22 - Chronic systolic (congestive) heart failure (5) CKD (chronic kidney disease) stage 3, GFR 30-59 ml/min Current Visit: Yes Status: Chronic Assessment and plan: Patient exhibited minimal response to lasix 40mg BID overnight. Plan to continue lasix today with addition of metolazone 5mg. If he does not respond to diuresis overnight, we will consider a nephrology consult for assistance in management of this problem. Continued monitoring of creatinine and renal function. (6) Diabetes mellitus Current Visit: No Status: Chronic Assessment and plan: Continue accuchecks and sliding scale insulin per protocol. With addition of marinol to patient's medication regimen, he may have larger increases in blood sugar due to increased appetite and subsequent food consumption. Plan to continue close monitoring, with addition of prandial insulin doses and/or adjustment of sliding scale regimen as appropriate. Qualifiers: Diabetes mellitus type: type 2 Diabetes mellitus assisted insulin use: without garment manufacturer use Diabetes mellitus complication status: with kidney complications Diabetes mellitus complication detail: with chronic kidney disease Chronic kidney disease stage: stage 3 (moderate) Qualified Code(s): E11.22 - Type 2 diabetes mellitus with diabetic chronic kidney disease; N18.3 - Chronic kidney disease, stage 3 (moderate) (7) Hypertension Current Visit: No Status: Chronic Assessment and plan: Patient is not currently on antihypertensive medications; however, his blood pressure has remained within normal limits, with his most recent reading being 125/73. Will continue to monitor and consider the addition of antihypertensive agent(s) as needed. Qualifiers: Hypertension type: essential hypertension Qualified Code(s): I10 - Essential (primary) hypertension (8) Sacral decubitus ulcer Current Visit: Yes Status: Chronic Assessment and plan: Wound care consult in place. Continue BID dressing changes per their recommendations. Qualifiers: Pressure injury stage: unspecified pressure injury stage Qualified Code(s) : L89.159 - Pressure ulcer of sacral region, unspecified stage (9) DVT prophylaxis Current Visit: No Status: Acute Assessment and plan: Eliquis 2.5mg PO BID. (10) Anasarca Current Visit: Yes Status: Acute Assessment and plan: Suspect that the etiology of his fluid overload is due both to his protein- calorie malnutrition and his CHF. Management as above. - Time Spent With Patient Total time spent is greater than 50% in coordination of care (as documented) at patient's floor/unit and/or counseling patient: - Subjective Interval history: Mr. Vázquez appears improved today. He is sitting in bed comfortably, and complains only of persistent cough with sputum that he is unable to cough up. He complains of some chest discomfort associated with his coughing spells. - Constitutional Vitals: Temp Pulse Resp BP Pulse Ox 97.9 F 59 18 109/63 98 11/07/17 04:57 11/07/17 04:57 11/07/17 04:57 11/07/17 04:57 11/07/17 04:57 General appearance: Present: A&O X 3, pleasant, no acute distress Exam: Patient is alert and oriented. He answers questions appropriately. He is not in acute distress. His overall appearance is edematous. - Head Additional comments: Atraumatic and normocephalic. - Respiratory Additional comments: Coarse breath sounds bilaterally. - Cardiovascular Additional comments: Regular rate and rhythm. No murmurs, rubs, or gallops. - Extremities Exam Additional comments: Patient moves upper extremities spontaneously. Edema present in all extremities , with 2-3+ pitting edema in bilateral lower extremities. Left upper extremity remains erythematous and larger in size than the right. Internal Medicine: Result - Labs CBC & Chem 7: 11/07/17 04:00 11/07/17 04:00 Labs: Short CBC 11/06/17 11/07/17 Range/Units 07:54 04:00 WBC 8.9 9.5 (4.3-11.1) K/mcL Hgb 9.8 L 9.3 L (12.9-16.9) g/dL Hct 31.6 L 29.4 L (37.5-50.1) % Plt Count 161 124 L (140-400) K/mcL Neutrophils # 7.7 8.4 (1.6-8.9) K/mcL BMP 11/06/17 11/07/17 07:54 04:00 Sodium 136 138 Potassium 4.0 4.0 Chloride 105 105 Carbon Dioxide 23 24 BUN 84 H 87 H Creatinine 1.36 H 1.35 H Glucose 194 H 217 H Calcium 8.2 L 8.2 L - ABG Interpretation ABG results: PT/INR, D-dimer PT 18.0 Seconds (9.4-12.1) H 11/02/17 15:43 - Impressions Impressions Chest X-Ray 11/06/17 08:54 IMPRESSION: Findings are suggestive of congestive heart failure with increasing moderate bilateral pleural effusions. D/ / Beverly Ramos MD / Beverly Ramos MD Interpreting Provider: Beverly Ramos MD Consult Discharge Plan - Plan Referrals: Radha Jones [employer] [Primary Care Provider] - (will go back to [facility]) <Antionette Grimes - Last Filed: 11/07/17 17:51> Date of Encounter: 11/07/17 - Assessment and plan (1) Diabetes mellitus Current Visit: No Status: Chronic Qualifiers: Diabetes mellitus type: type 2 Diabetes mellitus assisted insulin use: without garment manufacturer use Diabetes mellitus complication status: with kidney complications Diabetes mellitus complication detail: with chronic kidney disease Chronic kidney disease stage: stage 3 (moderate) Qualified Code(s): E11.22 - Type 2 diabetes mellitus with diabetic chronic kidney disease; N18.3 - Chronic kidney disease, stage 3 (moderate) (2) DVT prophylaxis Current Visit: No Status: Acute (3) Hypertension Current Visit: No Status: Chronic Qualifiers: Hypertension type: essential hypertension Qualified Code(s): I10 - Essential (primary) hypertension (4) Congestive heart failure Current Visit: No Status: Chronic Qualifiers: Heart failure type: systolic Heart failure chronicity: chronic Qualified Code(s): I50.22 - Chronic systolic (congestive) heart failure (5) CKD (chronic kidney disease) stage 3, GFR 30-59 ml/min Current Visit: Yes Status: Chronic (6) Left upper extremity swelling Current Visit: Yes Status: Acute (7) Sacral decubitus ulcer Current Visit: Yes Status: Chronic Qualifiers: Pressure injury stage: unspecified pressure injury stage Qualified Code(s) : L89.159 - Pressure ulcer of sacral region, unspecified stage (8) Clostridium difficile diarrhea Current Visit: Yes Status: Acute (9) Protein calorie malnutrition Current Visit: Yes Status: Acute Qualifiers: Protein-calorie malnutrition severity: unspecified severity Qualified Code( s): E46 - Unspecified protein-calorie malnutrition (10) Anasarca Current Visit: Yes Status: Acute - Time Spent With Patient Total time spent is greater than 50% in coordination of care (as documented) at patient's floor/unit and/or counseling patient: - Constitutional Vitals: Temp Pulse Resp BP Pulse Ox 97.6 F 71 18 125/73 98 11/07/17 15:51 11/07/17 15:51 11/07/17 16:02 11/07/17 15:51 11/07/17 16:02 Internal Medicine: Result - Labs CBC & Chem 7: 11/07/17 04:00 11/07/17 04:00 Labs: Short CBC 11/07/17 Range/Units 04:00 WBC 9.5 (4.3-11.1) K/mcL Hgb 9.3 L (12.9-16.9) g/dL Hct 29.4 L (37.5-50.1) % Plt Count 124 L (140-400) K/mcL Neutrophils # 8.4 (1.6-8.9) K/mcL BMP 11/07/17 04:00 Sodium 138 Potassium 4.0 Chloride 105 Carbon Dioxide 24 BUN 87 H Creatinine 1.35 H Glucose 217 H Calcium 8.2 L - ABG Interpretation ABG results: PT/INR, D-dimer PT 18.0 Seconds (9.4-12.1) H 11/02/17 15:43 - Attending Attestation I examined this patient and my medical decision-making was reviewed with the Resident Physician Dr. Quintero. I agree with the documented findings, disposition and treatment plan as described except to the extent set forth below. Mr. Vázquez is a 87 year old male with PMH CKD stage III, DVT, pacemaker, Alzheimer's, diabetes, diastolic CHF pt admitted here for septic shock with C. Diff infection and ?? UTI. He was started on PO Vancomycin and empirical abx Invanz for her UTI since pt has ESBL +ve inf in the past. Pt is more alert, awake and O x 3. Does have diffuse swelling all over the body with volume overload. He denied any CP Gen: A, A, O x3 Chest . Diminished BS, mild rales Heart: S1S2+ Ext: 3+ pitting edema Scrotal edema ++ a/p 1. Septic shock- mostly due to C. Diff 2. C. Diff colitis cont pO Vanco 3. ?? UTI - Urine cx no growth d/c Invanz 4. Volume overload 5. Anasarca - Generalized edema Lasix 40 IV BID Will add Metolazone to pt's regimen 6. Chronic diastolic CHF Not in decompensation 7. Sacral ulcer 8. PCM - moderate
[2017-11-07] MEDS: Insulin LISPRO 300 UNITS/3 ML VIAL SQ SCH ×4 (09:15→22:12)
[2017-11-07] MEDS: Furosemide 40 MG/4 ML VIAL IVP SCH ×2 (09:15→16:06)
[2017-11-07] MEDS: Apixaban 5 MG TABLET PO SCH ×2 (09:16→22:05)
[2017-11-07] MEDS: Aspirin Enteric Coated 81 MG Tablet PO SCH (09:16)
[2017-11-07] MEDS: Vancomycin Oral Soln 125 MG/2.5 ML UDC PO SCH ×4 (10:34→22:06)
[2017-11-07] MEDS: metOLazone 5 MG TABLET PO SCH (11:46)
[2017-11-08] MEDS: Ipratropium/Albuterol Neb 3 ML IH SCH ×5 (03:36→19:49)
[2017-11-08 04:43] LABS: VBG Ionized Calcium 1.14 mmol/L (1.15-1.35)
[2017-11-08 04:43] LABS: Basophils % 0.3 %; Eosinophils # 0.1 K/mcL (0.0-0.6); Eosinophils % 0.8 %; Hematocrit 28.6 % (37.5-50.1); Hemoglobin 8.9 g/dL (12.9-16.9); Immature Granulocytes % 1.4 % (0-4); Lymphocytes # 0.4 K/mcL (0.6-4.6); Lymphocytes % 3.5 %; Mean Corpuscular HGB Conc 31.1 g/dL (31.6-35.5); Mean Corpuscular Hemoglobin 30.4 pg (28.0-33.3); Mean Corpuscular Volume 97.6 fL (83.0-100.0); Mean Platelet Volume 9.2 fL (9.4-12.4); Monocytes # 0.5 K/mcL (0.0-1.3); Monocytes % 4.6 %; Neutrophils # 10.3 K/mcL (1.6-8.9); Platelet Count 137 K/mcL (140-400); Red Blood Count 2.93 M/mcL (4.19-5.50); Red Cell Distribution Width 17.7 % (11.5-14.5); Segmented Neutrophils % 89.4 %
[2017-11-08 04:58] LABS: BUN/Creatinine Ratio 71 (6-26); Blood Urea Nitrogen 91 mg/dL (8-23); Calcium 8.2 mg/dL (8.6-10.3); Carbon Dioxide 23 mEq/L (23-29); Chloride 104 mEq/L (98-107); Glucose 216 mg/dL (70-105); Osmolality,Calculated 325 (280-300); Potassium 3.9 mEq/L (3.5-5.1); Sodium 140 mEq/L (136-145); eGFR For African Americans > 60 (> 60); eGFR For Non-African Americans 53 (> 60)
[2017-11-08] MEDS: Insulin LISPRO 300 UNITS/3 ML VIAL SQ SCH ×4 (07:52→20:33)
[2017-11-08] MEDS: Aspirin Enteric Coated 81 MG Tablet PO SCH (07:53)
[2017-11-08] MEDS: metOLazone 5 MG TABLET PO SCH (07:53)
[2017-11-08] MEDS: Furosemide 40 MG/4 ML VIAL IVP SCH ×3 (07:53→17:22)
[2017-11-08] MEDS: Vancomycin Oral Soln 125 MG/2.5 ML UDC PO SCH ×4 (07:54→20:32)
[2017-11-08] MEDS: Apixaban 5 MG TABLET PO SCH ×2 (07:54→20:31)
--- NOTE | 2017-11-08 08:13 | Internal Med Progress Note ---
<Laurel Quintero N - Last Filed: 11/08/17 14:18> Date of Encounter: 11/08/17 Time of Encounter: 08:13 - Assessment and plan (1) Clostridium difficile diarrhea Current Visit: Yes Status: Acute Assessment and plan: Day #4 of vancomycin 125mg PO QID. Patient reports no recent episodes of diarrhea. He remains afebrile, with a WBC count within normal limits. Plan to continue vancomycin PO for a minimum of 10 days. Will continue to monitor for recurrent bouts of diarrhea. Continued contact precautions. 11/08 - Day #5 of vancomycin 125mg PO. WBC count was increased to 11.5 today, versus 9.5 yesterday. With his increasing shortness of breath today and the elevated white count, CXR has been ordered to assess for possible pneumonia development. Plan to continue vancomycin and address any CXR findings as necessary appropriate. (2) Left upper extremity swelling Current Visit: Yes Status: Acute Assessment and plan: Unchanged from yesterday. Suspect some of erythema is discoloration due to chronic venous stasis. With patient's history of chronic bilateral DVTs, it is possible that he has a DVT in his left upper extremity as well. Considered ultrasound of that extremity to assess; however, treatment plan would not be adjusted as the patient is already anticoagulated with Eliquis. Will continue to monitor. 11/08 - Appearance again unchanged from yesterday. Patient does not appear to be having difficulty moving the extremity. Will continue monitoring. (3) Protein calorie malnutrition Current Visit: Yes Status: Acute Assessment and plan: Nutrition consult placed. Suspect that this is contributing to his fluid overloaded state as serum albumin was low (2.2L on 11/04) and patient is likely third spacing. Considered addition of IV albumin; however, there is no strong evidence suggesting that this would improve his fluid status significantly. Patient does complain of a decreased appetite, for which he was started on marinol 2.5mg. Will continue to adjust and make dietary recommendations/changes as appropriate. 11/08 - Continued marinol 2.5mg. Patient has order for ensure BID in addition to mechanical soft diet. Qualifiers: Protein-calorie malnutrition severity: moderate Qualified Code(s): E44.0 - Moderate protein-calorie malnutrition (4) Congestive heart failure Current Visit: No Status: Chronic Assessment and plan: Patient remains edematous, with minimal response from IV lasix. His overall fluid balance yesterday was -340mL; however, he remains fluid overloaded, with a cumulative balance of 4314mL for this hospitalization. Plan to continue lasix 40mg IVP BID and add metolazone 5mg. Will continue his home medication regimen of aspirin and lipitor; however, will continue to hold losartan to allow for further diuresis. Will consider restarting that medication and adding a beta carolyne at time of discharge. 11/08 - Increase in urine output overnight; however, the patient is unchanged clinically. He has increased SOB when lying further down in bed, and his persistent chest congestion is likely secondary to fluid overload from CHF. Discussed medication schedule with nursing staff, which revealed that the patient had been getting his lasix before metolazone. Nursing staff was informed that the metolozone should be given approximately 30 minutes prior to lasix for maximum efficacy. His does of lasix was also changed from BID to 40mg IV TID. Will continue to monitor and reassess as appropriate. Qualifiers: Heart failure type: systolic Heart failure chronicity: chronic Qualified Code(s): I50.22 - Chronic systolic (congestive) heart failure (5) CKD (chronic kidney disease) stage 3, GFR 30-59 ml/min Current Visit: Yes Status: Chronic Assessment and plan: Patient exhibited minimal response to lasix 40mg BID overnight. Plan to continue lasix today with addition of metolazone 5mg. If he does not respond to diuresis overnight, we will consider a nephrology consult for assistance in management of this problem. Continued monitoring of creatinine and renal function. 11/08 - Some improvement in fluid excretion overnight; however, patient has been getting metalozone after lasix administration. Diuresis was increased from BID to TID 40mg IV lasix. Will continue monitoring with close watch on renal function. Creatinine today is within normal limits. (6) Diabetes mellitus Current Visit: No Status: Chronic Assessment and plan: Continue accuchecks and sliding scale insulin per protocol. With addition of marinol to patient's medication regimen, he may have larger increases in blood sugar due to increased appetite and subsequent food consumption. Plan to continue close monitoring, with addition of prandial insulin doses and/or adjustment of sliding scale regimen as appropriate. Qualifiers: Diabetes mellitus type: type 2 Diabetes mellitus shelter insulin use: without shelter use Diabetes mellitus complication status: with kidney complications Diabetes mellitus complication detail: with chronic kidney disease Chronic kidney disease stage: stage 3 (moderate) Qualified Code(s): E11.22 - Type 2 diabetes mellitus with diabetic chronic kidney disease; N18.3 - Chronic kidney disease, stage 3 (moderate) (7) Hypertension Current Visit: No Status: Chronic Assessment and plan: Patient is not currently on antihypertensive medications; however, his blood pressure has remained within normal limits, with his most recent reading being 125/73. Will continue to monitor and consider the addition of antihypertensive agent(s) as needed. 11/08 - Morning blood pressure reading was slightly elevated at 141/72. Plan to continue monitoring, and consider additional blood pressure management if it remains high tomorrow. Qualifiers: Hypertension type: essential hypertension Qualified Code(s): I10 - Essential (primary) hypertension (8) Sacral decubitus ulcer Current Visit: Yes Status: Chronic Assessment and plan: Wound care consult in place. Continue BID dressing changes per their recommendations. Qualifiers: Pressure injury stage: unspecified pressure injury stage Qualified Code(s) : L89.159 - Pressure ulcer of sacral region, unspecified stage (9) Goals of care, counseling/discussion Current Visit: No Status: Acute Assessment and plan: Spoke with patient and his family Monday to explain his current problems and discuss goals of care. The patient's family states that they want to focus more on comfort care; however, he still wants to remain full code. His family received a palliative care consult on prior hospital admission, and the family expressed interest in again speaking with that team. The family states that they want to be able to take him home, insisting that they are unconcerned about the expense and feel they have the resources to take care of them. I spoke with Mr. Vázquez's dependency case manager about his needs would be if he were to go with home health upon discharge. She expressed concern for whether or not the family would be able to provide him with 24/7 care, but stated that if that was what they wanted, social work could process the necessary paperwork. Following my conversation with social work, I spoke to the patients daughter last night and relayed the pertinant information. She stated that she realized after our conversation Monday that he would essentially need to be DNR in order for palliative care to be of assistance, which is again something that they are not wanting to do. His daughter expressed that she and the other family members were having a tough time deciding what to do, but that they were reconsidering whether an ECF would be the better place for his care upon discharge. Plan to remain in contact with the patient's daughter regarding discharge planning and further goals of care. (10) DVT prophylaxis Current Visit: No Status: Acute Assessment and plan: Eliquis 2.5mg PO BID. (11) Anasarca Current Visit: Yes Status: Acute Assessment and plan: Suspect that the etiology of his fluid overload is due both to his protein- calorie malnutrition and his CHF. Management as above. - Time Spent With Patient Total time spent is greater than 50% in coordination of care (as documented) at patient's floor/unit and/or counseling patient: - Subjective Interval history: Mr. Vázquez appears improved today. He is sitting in bed comfortably, and complains only of persistent cough with sputum that he is unable to cough up. He complains of some chest discomfort associated with his coughing spells. 11/08 - Patient complains of increased shortness of breath that began overnight. He states that he is now experiencing shortness of breath at rest, which he had not been previously. He reports continued chest congestion, which has not been alleviated by coughing or addition of mucinex. He denies chest pain and voices no other complaints at this time. - Constitutional Vitals: Temp Pulse Resp BP Pulse Ox 98.2 F 89 17 141/72 98 11/08/17 07:16 11/08/17 07:16 11/08/17 07:27 11/08/17 07:16 11/08/17 07:27 General appearance: Present: A&O X 3, pleasant, no acute distress Exam: Ill-appearing male in no acute distress. He answers questions appropriately and does not appear to be in any acute distress. - Head Additional comments: Atraumatic and normocephalic. Nasal canula in place. - Respiratory Additional comments: Decreased breath sounds bilaterally with mild rhonchi. - Cardiovascular Additional comments: Regular rate and rhythm. No murmurs, rubs, or gallops. - Extremities Exam Additional comments: Patient moves upper extremities spontaneously. Edema present in all extremities , with 2-3+ pitting edema in bilateral lower extremities. Left upper extremity remains erythematous and larger in size than the right, though it is improved since admission. Internal Medicine: Result - Labs CBC & Chem 7: 11/08/17 04:22 11/08/17 04:22 Labs: Short CBC 11/08/17 Range/Units 04:22 WBC 11.5 H (4.3-11.1) K/mcL Hgb 8.9 L (12.9-16.9) g/dL Hct 28.6 L (37.5-50.1) % Plt Count 137 L (140-400) K/mcL Neutrophils # 10.3 H (1.6-8.9) K/mcL BMP 11/08/17 04:22 Sodium 140 Potassium 3.9 Chloride 104 Carbon Dioxide 23 BUN 91 H Creatinine 1.29 Glucose 216 H Calcium 8.2 L - ABG Interpretation ABG results: PT/INR, D-dimer PT 18.0 Seconds (9.4-12.1) H 11/02/17 15:43 Consult Discharge Plan - Plan Referrals: Radha Jones, [facility] [Primary Care Provider] - (will go back to [facility]) <Antionette Grimes - Last Filed: 11/08/17 16:02> Date of Encounter: 11/08/17 - Assessment and plan (1) Diabetes mellitus Current Visit: No Status: Chronic Qualifiers: Qualified Code(s): E11.22 - Type 2 diabetes mellitus with diabetic chronic kidney disease; N18.3 - Chronic kidney disease, stage 3 (moderate) (2) DVT prophylaxis Current Visit: No Status: Acute (3) Hypertension Current Visit: No Status: Chronic Qualifiers: Qualified Code(s): I10 - Essential (primary) hypertension (4) Congestive heart failure Current Visit: No Status: Chronic Qualifiers: Qualified Code(s): I50.22 - Chronic systolic (congestive) heart failure (5) Goals of care, counseling/discussion Current Visit: No Status: Acute (6) CKD (chronic kidney disease) stage 3, GFR 30-59 ml/min Current Visit: Yes Status: Chronic (7) Left upper extremity swelling Current Visit: Yes Status: Acute (8) Sacral decubitus ulcer Current Visit: Yes Status: Chronic Qualifiers: Qualified Code(s): L89.159 - Pressure ulcer of sacral region, unspecified stage (9) Clostridium difficile diarrhea Current Visit: Yes Status: Acute (10) Protein calorie malnutrition Current Visit: Yes Status: Acute Qualifiers: Qualified Code(s): E44.0 - Moderate protein-calorie malnutrition (11) Anasarca Current Visit: Yes Status: Acute - Time Spent With Patient Total time spent is greater than 50% in coordination of care (as documented) at patient's floor/unit and/or counseling patient: - Constitutional Vitals: Temp Pulse Resp BP Pulse Ox 98.1 F 100 20 112/78 99 11/08/17 15:45 11/08/17 15:45 11/08/17 15:45 11/08/17 15:45 11/08/17 15:45 Internal Medicine: Result - Labs CBC & Chem 7: 11/08/17 04:22 11/08/17 04:22 Labs: Short CBC 11/08/17 Range/Units 04:22 WBC 11.5 H (4.3-11.1) K/mcL Hgb 8.9 L (12.9-16.9) g/dL Hct 28.6 L (37.5-50.1) % Plt Count 137 L (140-400) K/mcL Neutrophils # 10.3 H (1.6-8.9) K/mcL BMP 11/08/17 04:22 Sodium 140 Potassium 3.9 Chloride 104 Carbon Dioxide 23 BUN 91 H Creatinine 1.29 Glucose 216 H Calcium 8.2 L - ABG Interpretation ABG results: PT/INR, D-dimer PT 18.0 Seconds (9.4-12.1) H 11/02/17 15:43 - Impressions Impressions Chest X-Ray 11/08/17 10:15 IMPRESSION: 1. Cardiomegaly. 2. Calcific atherosclerosis aorta. 3. Findings typical of pulmonary edema with interval progression of bilateral pleural effusion and bibasilar consolidation. D/ / Murali Recio / Murali Recio Interpreting Provider: Murali Recio - Attending Attestation I examined this patient and my medical decision-making was reviewed with the Resident Physician Dr. Quintero. I agree with the documented findings, disposition and treatment plan as described except to the extent set forth below. Mr. Vázquez is a 87 year old male with PMH CKD stage III, DVT, pacemaker, Alzheimer's, diabetes, diastolic CHF pt admitted here for septic shock with C. Diff infection and ?? UTI. He was started on PO Vancomycin and empirical abx Invanz for her UTI since pt has ESBL +ve inf in the past. Pt is more alert, awake and O x 3. Does have diffuse swelling all over the body with volume overload. He denied any CP Gen: A, A, O x3 Chest . Diminished BS, mild rales Heart: S1S2+ Ext: 3+ pitting edema Scrotal edema ++ a/p 1. Septic shock- mostly due to C. Diff 2. C. Diff colitis cont pO Vanco 3. ?? UTI - Urine cx no growth d/c Invanz 4. Volume overload 5. Anasarca - Generalized edema Will change Lasix to 40 IV TID Cont Metolazone 6. Chronic diastolic CHF Not in decompensation 7. Sacral ulcer 8. PCM - moderate Met with pt's family at bed side, explained to them about current care, and over all poor prognosis with all the above comorbidities. Pt and family wanted to take him to [facility] for second opinion. So I called [facility] transfer center and discussed about it. Waiting on [facility] approval.
[2017-11-08] MEDS ORDERED: metOLazone 5 MG TABLET PO SCH (09:00)
--- NOTE | 2017-11-08 15:29 | Palliative - Consult Note ---
<Carina Back - Last Filed: 11/08/17 14:38> Date of Encounter: 11/08/17 Time of Encounter: 14:38 - Assessment and Plan (1) Goals of care, counseling/discussion Current Visit: No Status: Acute Assessment and plan: - CODE STATUS unchanged. Remains FULL CODE per patient's wishes. - Family (including daughter Floridalma, his MPOA) and primary treatment team were present for goals of care discussion. - Patient's primary complaint at the time goals of care were discussed today was shortness of breath. - The patient wants to go to [facility] for a "second opinion" re: treating his shortness of breath. - At this time, patient does not want hospice care and wants to return home; stated multiple times that he wants a chance to "get better". - Patient wants aggressive care. - Family also wants to take patient home; request assistance with setting their home up and additional help to provide care while at home. Plan: - If [facility] does not accept the patient for transfer, begin setting up with palliative Home Health and ultimately transition to hospice at home. - Patient and family are in agreement with this plan and all questions were answered. (2) Shortness of breath Current Visit: Yes Status: Acute Assessment and plan: Fluid overload from CHF. Minimal response to lasix. Treatment per primary team. (3) Clostridium difficile diarrhea Current Visit: Yes Status: Acute Assessment and plan: Treatment per primary team with oral vancomycin (4) Protein calorie malnutrition Current Visit: Yes Status: Acute Assessment and plan: treatment per primary team. Qualifiers: Protein-calorie malnutrition severity: moderate Qualified Code(s): E44.0 - Moderate protein-calorie malnutrition Palliative-CN HPI - Data of Consult Patient: known to practice within the last 3 years Consult date: 11/08/17 Requesting Physician: Brennan Palma DO Primary Care Provider: Radha Jones CNP - Consult Narrative Palliative Care/Comfort Measures: Palliative care Reason for consult: to answer questions about hospice History of present illness: Mr. Vázquez is a 87 year old male with PMH CKD stage III, DVT, pacemaker, Alzheimer's, diabetes, CHF who came to [facility] from [facility] for management of pneumonia and cellulitis. He's had slowly increasing weakness and loss of sensation in his legs, therefore has not been able to walk for some time. In the ED, he was diagnosed with septic shock suspected to be d/t UTI, likely related to his chronic indwelling Bethea catheter. He was given fluid resuscitation and started on antibiotics and levophed; he was transferred to ICU. He was recently admitted 10/03/17 for septic shock secondary to pneumonia, UTI, bacteremia, sacral decubitus ulcer--urine culture grew E. coli ESBL treated with ertapenem. Palliative care team was consulted to answer questions regarding hospice. CC: Brennan Palma, DO Past Med Surg Social Fam HX - Past Medical History Medical history: arthritis, CHF, DVT, diabetes, hypertension, kidney stones, renal disease, other Additional medical history: UTI,PAcer, Alzheimers, Cellulitis Psychiatric history: anxiety - Past Surgical History Surgical History: herniorrhaphy, pacemaker/AICD Additional surgical history: I7D LLE. Back Surgery. Right knee. von mo. bilat carpal tunnel - Social History Smoking Status: Never smoker Smokeless Tobacco Status: No Alcohol use: none, rarely Drug use: none - Family History Father Hx Family Cardiac Disorders: Yes Hx Family Respiratory Disorders: No Hx Family Cancer: No Hx Family GI Disorders: No Hx Family Endocrine Disorder: No Hx Family Neuromuscular Disorders: No Hx Family Neurologic Disorders: No Hx Family HEENT Disorders: No Hx Family Autoimmune Disorders: No Mother Family Member Ethnicity: Non- Living Status: Hx Family Cardiac Disorders: No Hx Family Respiratory Disorders: No Hx Family Cancer: No Hx Family GI Disorders: No Hx Family Endocrine Disorder: No Hx Family Neuromuscular Disorders: No Hx Family Neurologic Disorders: No Hx Family HEENT Disorders: No Hx Family Autoimmune Disorders: No Medications and Allergies Tamsulosin [Flomax] 0.4 mg PO DAILY capsule 08/06/15 [Rx] Atorvastatin [Lipitor] 40 mg PO DAILY 09/07/15 [History] Cholecalciferol (D-3) [Vitamin D] 2,000 unit PO DAILY 05/09/17 [History] Furosemide [Lasix] 40 mg PO DAILY 07/27/17 [History] Apixaban [Eliquis] 2.5 mg PO BID #60 tablet 07/30/17 [Rx] Aspirin Enteric Coated [Aspirin EC] 81 mg PO DAILY #30 tablet. 07/30/17 [Rx] Ondansetron [Zofran ODT] 8 mg PO TID PRN 09/01/17 [History] PARoxetine HCl [Paroxetine HCl] 10 mg PO QAM 09/01/17 [History] Gabapentin [Neurontin] 300 mg PO BID 7 Days #14 capsule 09/06/17 [Rx] Acetaminophen [Tylenol Arthritis] 650 mg PO TID 09/13/17 [History] Docusate [Colace] 100 mg PO BID 09/13/17 [History] Insulin LISPRO [HumaLOG] 0 units SQ TIDAC #1 each 09/24/17 [Rx] Losartan [Cozaar] 25 mg PO DAILY 09/26/17 [History] Benzonatate [Tessalon] 100 mg PO TID 10/03/17 [History] Guaifenesin [Mucinex] 600 mg PO BID 10/03/17 [History] Ipratropium/Albuterol Neb [Duoneb] 3 ml IH Q6HR 10/03/17 [History] 3 Allergy/AdvReac Type Severity Reaction Status Date / Time No Known Allergies Allergy Verified 10/03/17 21:14 - Cardiovascular Cardiovascular ROS: edema, no chest pain - Respiratory Respiratory: cough (with sputum production; weak cough), dyspnea - Gastrointestinal Gastrointestinal: no abdominal pain - Neurological Neurological ROS: sensory deficit (BLE) Palliative Care-Exam - Constitutional Vitals: Temp Pulse Resp BP Pulse Ox 98.1 F 101 20 122/75 100 11/08/17 11:00 11/08/17 11:00 11/08/17 11:00 11/08/17 11:00 11/08/17 11:00 General appearance: Present: no acute distress - Head Head Exam: Present: normocephalic - Eye Eye exam: Present: PERRL - Respiratory Respiratory exam: Present: rhonchi. Absent: accessory muscle use, respiratory distress Additional comments: weak cough - Cardiovascular Cardiovascular exam: Present: RRR, +S1, +S2 - GI/Abdominal Exam GI/Abdominal exam: Present: normal bowel sounds, soft. Absent: tenderness - Catheter Type: Urethral (Bethea) - Extremities Exam Additional comments: +2 pitting edema BLE, edematous LUE - Neurological Exam Neurological exam: Present: alert, motor sensory deficit (decreased sensation BLE), oriented X3. Absent: speech deficit Internal Medicine - CN: Reslt - Labs CBC & Chem 7: 11/08/17 04:22 11/08/17 04:22 Labs: Short CBC 11/08/17 Range/Units 04:22 WBC 11.5 H (4.3-11.1) K/mcL Hgb 8.9 L (12.9-16.9) g/dL Hct 28.6 L (37.5-50.1) % Plt Count 137 L (140-400) K/mcL Neutrophils # 10.3 H (1.6-8.9) K/mcL BMP 11/08/17 04:22 Sodium 140 Potassium 3.9 Chloride 104 Carbon Dioxide 23 BUN 91 H Creatinine 1.29 Glucose 216 H Calcium 8.2 L - ABG Interpretation ABG results: PT/INR, D-dimer PT 18.0 Seconds (9.4-12.1) H 11/02/17 15:43 Consult Discharge Plan - Plan Referrals: Radha Jones CNP [Primary Care Provider] - (will go back to [facility]) Palliative Quality Palliative Quality: Screen for Code Status: Yes, Screen for Goals of Care: Yes, Screen for Pain: No, If Pain Regimen Started, Initiate Bowel Regimen: NA, Screen for Nausea/Vomitting: Yes Code Status: 11/02/17 20:44 Resuscitation Status: Active [RES] Routine Comment: Resuscitation Status: Full Code <Antonio Rios - Last Filed: 11/08/17 16:10> Date of Encounter: 11/08/17 Palliative-CN HPI - Data of Consult Requesting Physician: Brennan Palma DO Primary Care Provider: Radha Jones CNP - Consult Narrative History of present illness: Mr. Vázquez is a 87 year old male CC: Brennan Palma DO Palliative Care-Exam - Constitutional Vitals: Temp Pulse Resp BP Pulse Ox 98.1 F 100 20 112/78 99 11/08/17 15:45 11/08/17 15:45 11/08/17 15:45 11/08/17 15:45 11/08/17 15:45 Internal Medicine - CN: Reslt - Labs CBC & Chem 7: 11/08/17 04:22 11/08/17 04:22 Labs: Short CBC 11/08/17 Range/Units 04:22 WBC 11.5 H (4.3-11.1) K/mcL Hgb 8.9 L (12.9-16.9) g/dL Hct 28.6 L (37.5-50.1) % Plt Count 137 L (140-400) K/mcL Neutrophils # 10.3 H (1.6-8.9) K/mcL BMP 11/08/17 04:22 Sodium 140 Potassium 3.9 Chloride 104 Carbon Dioxide 23 BUN 91 H Creatinine 1.29 Glucose 216 H Calcium 8.2 L - ABG Interpretation ABG results: PT/INR, D-dimer PT 18.0 Seconds (9.4-12.1) H 11/02/17 15:43 - Impressions Impressions Chest X-Ray 11/08/17 10:15 IMPRESSION: 1. Cardiomegaly. 2. Calcific atherosclerosis aorta. 3. Findings typical of pulmonary edema with interval progression of bilateral pleural effusion and bibasilar consolidation. D/ / Murali Recio / Murali Recio Interpreting Provider: Murali Recio Palliative Quality Code Status: 11/02/17 20:44 Resuscitation Status: Active [RES] Routine Comment: Resuscitation Status: Full Code
--- NOTE | 2017-11-08 16:53 | Discharge Summary ---
Orders not resulted at time of discharge: Pending orders 11/09/17 04:00 BMP [Basic Metabolic Panel] AM 0400 Complete Blood Count [HEME] AM 0400 Date of Encounter: 11/08/17 Time of Encounter: 16:45 - Discharge Diagnosis (1) Clostridium difficile diarrhea Priority: Primary Status: Resolved (2) Anasarca Priority: Secondary Status: Acute (3) Hypertension Priority: Secondary Status: Chronic Qualifiers: Hypertension type: essential hypertension Qualified Code(s): I10 - Essential (primary) hypertension (4) Congestive heart failure Priority: Secondary Status: Chronic Qualifiers: Heart failure type: systolic Heart failure chronicity: chronic Qualified Code(s): I50.22 - Chronic systolic (congestive) heart failure (5) CKD (chronic kidney disease) stage 3, GFR 30-59 ml/min Priority: Secondary Status: Chronic (6) Left upper extremity swelling Priority: Secondary Status: Acute (7) Sacral decubitus ulcer Priority: Secondary Status: Chronic Qualifiers: Pressure injury stage: unspecified pressure injury stage Qualified Code(s) : L89.159 - Pressure ulcer of sacral region, unspecified stage (8) Protein calorie malnutrition Priority: Secondary Status: Acute Qualifiers: Protein-calorie malnutrition severity: moderate Qualified Code(s): E44.0 - Moderate protein-calorie malnutrition (9) Diabetes mellitus Priority: Secondary Status: Chronic Qualifiers: Diabetes mellitus type: type 2 Diabetes mellitus nursing home insulin use: without nursing home use Diabetes mellitus complication status: with kidney complications Diabetes mellitus complication detail: with chronic kidney disease Chronic kidney disease stage: stage 3 (moderate) Qualified Code(s): E11.22 - Type 2 diabetes mellitus with diabetic chronic kidney disease; N18.3 - Chronic kidney disease, stage 3 (moderate) (10) DVT prophylaxis Priority: Secondary Status: Acute (11) Goals of care, counseling/discussion Priority: Secondary Status: Acute (12) Septic shock Priority: Primary Status: Acute Hospital course: Mr. Vázquez is a 87 year old male with H CKD stage III, DVT, pacemaker, Alzheimer's, diabetes, diastolic CHF, chronic indwelling maria catheter pt was sent to our ER from [facility] for sepsis and generalized weakness. He was admitted here for septic shock with C. Diff infection and ?? UTI. He was started on PO Vancomycin and empirical abx Invanz for her UTI since pt has ESBL +ve inf in the past. However his urine cx did not grow any bacteria so his Invanz d/c d. Regarding his sacral ulcer he was evaluated by surgeon Dr. Dumont, recommend local wound care only since it does not look infected. He does have have diffuse swelling all over the body with volume overload and generalized anasrca. Started him on aggressive iV diuresis with Lasix and Metolzaone. However his edema has not improved yet. he does have severe PCM with Albumin level 2.2. At this point pt and family wanted to transfer to [facility] for further care and second opinion. I talked to [facility] transfer center and Dr. Mclaughlin, who accepted the pt for further care. So will transfer him to [facility] today in stable condition. - Time Spent with Patient Total time spent providing and/or coordinating discharge services: - Discharge Medications Home Medications: Tamsulosin [Flomax] 0.4 mg PO DAILY capsule 08/06/15 [Rx] Atorvastatin [Lipitor] 40 mg PO DAILY 09/07/15 [History] Cholecalciferol (D-3) [Vitamin D] 2,000 unit PO DAILY 05/09/17 [History] Furosemide [Lasix] 40 mg PO DAILY 07/27/17 [History] Apixaban [Eliquis] 2.5 mg PO BID #60 tablet 07/30/17 [Rx] Aspirin Enteric Coated [Aspirin EC] 81 mg PO DAILY #30 tablet. 07/30/17 [Rx] Ondansetron [Zofran ODT] 8 mg PO TID PRN 09/01/17 [History] PARoxetine HCl [Paroxetine HCl] 10 mg PO QAM 09/01/17 [History] Gabapentin [Neurontin] 300 mg PO BID 7 Days #14 capsule 09/06/17 [Rx] Acetaminophen [Tylenol Arthritis] 650 mg PO TID 09/13/17 [History] Docusate [Colace] 100 mg PO BID 09/13/17 [History] Insulin LISPRO [HumaLOG] 0 units SQ TIDAC #1 each 09/24/17 [Rx] Losartan [Cozaar] 25 mg PO DAILY 09/26/17 [History] Benzonatate [Tessalon] 100 mg PO TID 10/03/17 [History] Guaifenesin [Mucinex] 600 mg PO BID 10/03/17 [History] Ipratropium/Albuterol Neb [Duoneb] 3 ml IH Q6HR 10/03/17 [History] Allergies/Adverse Reactions: 3 Allergy/AdvReac Type Severity Reaction Status Date / Time No Known Allergies Allergy Verified 10/03/17 21:14 Date of admission: 11/02/17 18:09 Primary care physician: Radha Jones CNP Consults: 11/02/17 20:45 Consult to Wound Care [CONS] Routine Reason for Consult: 10x6 cm eschar on coccyx Call Completed: No 11/02/17 21:39 Consult to Physical Therapy [CONS] Routine Comment: Evaluate, develop and implement POC Reason for Consult: Deconditioning Does patient have active BEDREST order?: No Is patient medically & hemodynamically stable?: No 11/03/17 15:47 Consult to Surgery [CONS] Routine Consulting Provider: Surgery [facility] Reason for Consult: patient cared for by Dr. Dumont in [facility] with unstageable sacal ulcer - black eschar and slough Time Notified: 15:49 Call Completed: No 11/06/17 08:52 Consult to Textile Colorist Formulator [CONS] Routine Reason for SW Consult: rtn wmp 11/06/17 11:09 Consult to Nutrition [CONS] Routine Comment: Protein-calorie malnutrition Consulting Provider: NUTRITION Reason for Dietary Consult: Other 11/08/17 13:32 Consult to Palliative Care [CONS] Routine Comment: Consulting Provider: Palliative Care [place] Reason for Consult: Hospice discussion Time Notified: 13:32 Call Completed: Yes - Constitutional Vitals: Temp Pulse Resp BP Pulse Ox 98.1 F 100 20 112/78 99 11/08/17 15:45 11/08/17 15:45 11/08/17 15:45 11/08/17 15:45 11/08/17 15:45 General appearance: Present: A&O X 3, pleasant, no acute distress - Head Head exam: Present: atraumatic, normal inspection - Neck Neck exam general surgery: Present: supple - Respiratory Respiratory exam: Present: decreased breath sounds. Absent: rales, respiratory distress, rhonchi, wheezes - Cardiovascular Cardiovascular exam: Present: +S1, +S2, tachycardia - GI/Abdominal GI/Abdominal exam: Present: normal bowel sounds, soft. Absent: rebound, rigid, tenderness - Extremities Exam Extremities exam: Present: pedal edema (3+). Absent: calf tenderness, tenderness - Back Exam Additional comments: stage 4 sacral ulcer - Neurological Exam Neurological exam: Present: alert, oriented X3 - Psychiatric Psychiatric exam: Present: depressed - Patient Status Disposition: Transfer Other Condition: Fair - Discharge Instructions Follow Up With: Radha Jones CONFLICT RESOLUTION PROFESSIONAL [Primary Care Provider] - (will go back to [facility])
[2017-11-08 19:45] VITALS: BP 116/69
[2017-11-09] MEDS ORDERED: metOLazone 5 MG TABLET PO SCH (07:30)
== END 2017-11-08 23:10 | disposition other institution (70) | DRG 698 ==
LOC: EMEROO 15:27 → ICNU 18:09 → SUATTDRO 18:09 → ICNU 18:29 → 2ANU 11-05 02:40
PROVIDERS: ADMIT Internal Medicine; ATTEND Internal Medicine